=== PATIENT | male | born 1955 | race Caucasian/White ===

== ENCOUNTER 2019-07-22 12:06 | Outpatient (RCR) | payer BC, SELFPAY ==
[2019-07-22 12:40] VITALS: BP 140/75; PULSE 82; RESP 18; TEMP 36.4; BMI 29.5
--- NOTE | 2019-07-24 19:32 | HP.PCM_ITS ---
(1) Abscess of left foot excluding toes Status: Acute Code(s): L02.612 - Cutaneous abscess of left foot (2) HTN (hypertension) Status: Chronic Qualifiers: Hypertension type: unspecified Qualified Code(s): I10 - Essential (primary) hypertension Code(s): I10 - Essential (primary) hypertension (3) Hyperlipidemia Status: Chronic Qualifiers: Hyperlipidemia type: unspecified Qualified Code(s): E78.5 - Hyperlipidemia, unspecified Code(s): E78.5 - Hyperlipidemia, unspecified History of Present Illness Date of Service: 07/22/19 Chief Complaint: nonhealing wound left plantar foot s/p abscess History of Wound: Jose J is a 64 yo gentleman that presents to the wound healing center for evaluation and treatment of a wound to his left plantar foot s/p I and D on Thursday by his PCP Dr. Giordano. He had a wound to this same area in February 2019 and was seen at [facility] and treated there for 9 weeks with Aquacel and was placed in a wedge shoe to offload his foot. He has undergone vascular testing that he reports was normal and had xrays which did not show osteomyelitis. 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 He and his did not want to do surgery. His wound closed and he was discharged from the facility at the end of March. He began developing pain over the last 2 weeks and swelling and went to see his primary care doctor on Thursday who performed an I and D and had him do xrays to r/o osteomyelitis and performed a wound culture. He was started on Bactrim DS and has not heard back about any of the results at this time. He states that the pain and the drainage is improving. He has been using Aquacel and a bandaid over the wound. He denies fever or chills or nausea but did have these last weekend before he was started on antibiotics. Past Medical History Past Medical History: Chronic Problems HTN (hypertension) (Chronic) Hyperlipidemia (Chronic) Allergies/Adverse Reactions: Allergies Penicillins [PCN] Allergy (Verified 07/22/19 13:10) Other Home Medications: Ambulatory Orders Medication Instructions Recorded Ibuprofen [Advil] 600 mg PO DAILY PRN 07/22/19 Lisinopril mg PO DAILY 07/22/19 Simvastatin [Zocor] mg PO QHS 07/22/19 Smz/Tmp Ds [Bactrim Ds] 1 tab PO BID 07/22/19 - Family History Maternal No pertinent history Paternal No pertinent history Lives: Spouse/ Significant Other Smoking Status: Former smoker Tobacco Use: Non-smoker Alcohol: None Drugs: None Review of Systems Constitutional: Denies: Chills, Fever, Weight Change Eyes: Denies: Pain, Vision Change HEENT: Denies: Difficulty Hearing, Difficulty Swallowing, Sinus Congestion Cardiovascular: Denies: Chest Pain, Palpitations Respiratory: Denies: Cough, Shortness of Breath Gastrointestinal: Denies: Diarrhea, Nausea, Vomiting Genitourinary: Denies: Dysuria, Hematuria Musculoskeletal: Reports: Foot Pain Skin: Reports: Wounds Endocrine: Denies: Heat/ Cold Intolerance, Polydipsia, Polyuria Hematologic/ Lymphatic: Denies: Easy Bruising, Easy Bleeding - Physical Exam Vital Signs Temp Pulse Resp BP 97.6 F L 82 18 140/75 H 07/22/19 12:40 07/22/19 12:40 07/22/19 12:40 07/22/19 12:40 General: Alert, Oriented x3, Cooperative, No apparent distress HEENT: Atraumatic, Normocephalic Oral: Moist Mucosa Neck: Supple Lungs: Clear to auscultation Cardiovascular: Regular rate, Regular Rhythm Abdomen: Soft, Non Tender, Obese Extremities: No cyanosis, No edema, Peripheral Pulses Normal Skin: Ulcer/ Wound Wound Measurements and Assessment WC - Nurse 1 - General Ulcer Measurement Start: 07/22/19 12:39 Freq: Status: Active Protocol: Activity Type Activity Date Activity User E-Sign Co-Sign Detail Recorded Client Recorded Date Recorded By Document 07/22/19 12:40 [facility] [id number] 07/22/19 12:58 [facility] 07/22/19 12:40 Wound Center Nurse 1 [Ulcer Assessment] 31- L LATERAL PLANTAR FOOT -Combined with other wound No -Current Size (cm) - Length 1.1 -Current Size (cm) - Width 1.3 -Current Size (cm) - Depth 0.3 -Total Square Cm 1.43 -Date of Last Picture (Recall this 07/22/19 field) -Photo Taken Yes -Epithelialization None Present -Tunneling No -Undermining/Tunneling No -Circular Undermining No -Exudate Amt Small -Exudate Type Serosanguineous -Wound Margin Flat & Intact -Granulation Amt Medium (34-66%) -Granulation Quality Pale,Red -Slough/Fibrin Yes -Necrosis Amt Small (1-33%) -Necrotic Tissue Type Adherent Slough -Texture (Flory-wound Skin Appearance) Assessed,Callus ,Scarring -Moisture (Flory-wound Skin Appearance Assessed,Dry/ ) Scaly -Color (Flory-wound Skin Appearance) Assessed, Erythema -Temperature (Flory-wound Skin No Abnormality Appearance) (Pt Warm) -Tenderness on Palpation (Flory-wound Yes Skin Appearance) -Ulcer Cleansing Rinsed/ Irrigated with Saline -Foul Odor after Cleansing No -Anesthetic Used 5% Lidocaine Gel [Edema Assessment] -Right Calf (cm) 34.3 -Right Ankle (cm) 21 -Left Calf (cm) 34.5 -Left Ankle (cm) 22.5 WC - Nurse 2 - General Ulcer CM Notes Start: 07/22/19 12:39 Freq: Status: Active Protocol: Activity Type Activity Date Activity User E-Sign Co-Sign Detail Recorded Client Recorded Date Recorded By Document 07/22/19 13:51 DV [id number] 07/22/19 14:16 DV 07/22/19 13:51 Wound Center Nurse 2 [Procedure/Treatment] 31- L LATERAL PLANTAR FOOT -Time 14:02 -Correct Patient Yes -Correct Side, Site, Position Yes -Correct Procedure Yes -Procedure Performed Yes -Type of Procedure Debridement -Clinical Debridement Subcutaneous -Post Debridement Size (cm) - Length 1.3 -Post Debridement Size (cm) - Width 1.5 -Post Debridement Size (cm) - Depth 0.2 -Total Square Cm 1.95 -Wound/Ulcer Outcome Not Healed -Ulcer Cleansing Rinsed/ Irrigated with Saline -Foul Odor after Cleansing No -Bioengineered Tissue No -Bleeding Controlled with Pressure -Offloading Yes -Treatment Response Procedure Tolerated Well [See Physician Procedure note for Specifics] Pain Scale: 0-10 Numeric [Pain] -Is Patient Pain Free? Yes Psych/Mental Status: Normal Affect, Appropriate Debridement Note Post-Debridement Measurements/Treatment WC - Nurse 2 - General Ulcer CM Notes Start: 07/22/19 12:39 Freq: Status: Active Protocol: Activity Type Activity Date Activity User E-Sign Co-Sign Detail Recorded Client Recorded Date Recorded By Document 07/22/19 13:51 DV [id number] 07/22/19 14:16 DV 07/22/19 13:51 Wound Center Nurse 2 31- L LATERAL PLANTAR FOOT -Time 14:02 -Correct Patient Yes -Correct Side, Site, Position Yes -Correct Procedure Yes -Procedure Performed Yes -Type of Procedure Debridement -Clinical Debridement Subcutaneous -Post Debridement Size (cm) - Length 1.3 -Post Debridement Size (cm) - Width 1.5 -Post Debridement Size (cm) - Depth 0.2 -Total Square Cm 1.95 -Wound/Ulcer Outcome Not Healed -Ulcer Cleansing Rinsed/ Irrigated with Saline -Foul Odor after Cleansing No -Bioengineered Tissue No -Bleeding Controlled with Pressure -Offloading Yes -Treatment Response Procedure Tolerated Well Pain Scale: 0-10 Numeric Is Patient Pain Free? Yes Wound debrided: left lateral plantar foot Laterality: Left Type of Debridement: Excisional debridement Anesthesia Used: 4% Lidocaine Solution, 5% Lidocaine Gel Depth: Down to and including healthy tissue, in the subcutaneous layer Percentage of wound debrided: 100 Instrument Used: #15 blade, Forceps Tissue Removed: yellow slough, devitalized tissue Severity: Fat Layer Exposed Amount of bleeding with debridement: Mild Bleeding Controlled with: Compression and gauze Patient tolerated procedure well Assessment/Plan Assessment: cellulitis/abscess left lateral plantar foot Plan: Jose J's wound was evaluated and debrided further and explored for potential tunneling but none was found. Will obtain records from [facility] and his PCP including vascular studies, culture results and xrays. Will dress his wound with Aquacel and gauze and will have him offload his foot as much as possible. Continue Bactrim. Increase protein intake. Follow up in 1 week. Call sooner if he develops uncontrollable bleeding, increased drainage, odor or increased pain.
== END 2019-07-23 23:59 ==
LOC: WC 12:06
PROVIDERS: PCP Family Medicine; Visit Provider Family Medicine
DX: L02.612 Cutaneous abscess of left foot (principal); E78.5 Hyperlipidemia, unspecified; I10 Essential (primary) hypertension; Z87.891 Personal history of nicotine dependence; Z79.899 Other long term (current) drug therapy; L97.522 Non-pressure chronic ulcer of other part of left foot with fat layer exposed
CPT/HCPCS: 11042; 99203; G0463

== ENCOUNTER 2019-08-19 12:30 | Outpatient (RCR) | payer BC, SELFPAY ==
[2019-07-24 01:11] VITALS: BP 140/75; PULSE 82; RESP 18; TEMP 36.4
[2019-07-29 14:36] VITALS: BP 131/65; PULSE 78; RESP 18; TEMP 37; BMI 29.5
--- NOTE | 2019-07-29 18:09 | PCM.WC.PN ---
(1) Abscess of left foot excluding toes Status: Acute Current Visit: Yes Code(s): L02.612 - Cutaneous abscess of left foot (2) HTN (hypertension) Status: Chronic Current Visit: Yes Qualifiers: Hypertension type: essential hypertension Qualified Code(s): I10 - Essential (primary) hypertension Code(s): I10 - Essential (primary) hypertension (3) Hyperlipidemia Status: Chronic Current Visit: No Qualifiers: Code(s): E78.5 - Hyperlipidemia, unspecified Type of Wound Date of Service: 07/29/19 Chief Complaint: nonhealing wound left plantar foot s/p abscess History of Wound: Jose J is a 64 yo gentleman that presents to the wound healing center for evaluation and treatment of a wound to his left plantar foot s/p I and D on Thursday by his PCP Dr. Giordano. He had a wound to this same area in February 2019 and was seen at [facility] and treated there for 9 weeks with Aquacel and was placed in a wedge shoe to offload his foot. He has undergone vascular testing that he reports was normal and had xrays which did not show osteomyelitis. 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 He and his did not want to do surgery. His wound closed and he was discharged from the facility at the end of March. He began developing pain over the last 2 weeks and swelling and went to see his primary care doctor on Thursday who performed an I and D and had him do xrays to r/o osteomyelitis and performed a wound culture. He was started on Bactrim DS and has not heard back about any of the results at this time. He states that the pain and the drainage is improving. He has been using Aquacel and a bandaid over the wound. He denies fever or chills or nausea but did have these last weekend before he was started on antibiotics. Progress of Wound: Jose J returns today for follow up of surgical wound/abscess of his left plantar foot. Reviewed culture results and xrays from Dr. Giordano's office. Culture was positive for coag negative staph but no organism ID or sensitivities were performed. He is almost done with Bactrim DS and he has felt improvement of pain over the last week. He has had moderate drainage and occasional appearance of purulence from the wound per his . Denies systemic symptoms of infection such as erythema, fever, chills, nausea or vomiting. - Physical Exam Vital Signs Temp Pulse Resp BP 98.6 F 78 18 131/65 H 07/29/19 14:36 07/29/19 14:36 07/29/19 14:36 07/29/19 14:36 General: Alert, Oriented x3, Cooperative, No apparent distress HEENT: Atraumatic, Normocephalic Oral: Moist Mucosa Abdomen: Obese Extremities: No edema, Peripheral Pulses Normal Skin: Ulcer/ Wound Wound Measurements and Assessment WC - Nurse 1 - General Ulcer Measurement Start: 07/29/19 14:36 Freq: Status: Active Protocol: Activity Type Activity Date Activity User E-Sign Co-Sign Detail Recorded Client Recorded Date Recorded By Document 07/29/19 14:36 RB [id number] 07/29/19 14:39 RB 07/29/19 14:36 Wound Center Nurse 1 [Ulcer Assessment] 31- L LATERAL PLANTAR FOOT -Combined with other wound No -Current Size (cm) - Length 1 -Current Size (cm) - Width 1 -Current Size (cm) - Depth 0.1 -Total Square Cm 1 -Tunneling No -Undermining/Tunneling No -Circular Undermining No -Exudate Amt Small -Exudate Type Serosanguineous -Wound Margin Flat & Intact -Granulation Amt Medium (34-66%) -Granulation Quality [place] -Slough/Fibrin Yes -Necrosis Amt Small (1-33%) -Necrotic Tissue Type Adherent Slough -Structure Exposed N/A -Texture (Flory-wound Skin Appearance) Assessed,Callus -Moisture (Flory-wound Skin Appearance Assessed,Dry/ ) Scaly -Color (Flory-wound Skin Appearance) Assessed -Temperature (Flory-wound Skin No Abnormality Appearance) (Pt Warm) -Tenderness on Palpation (Flory-wound No Skin Appearance) -Ulcer Cleansing Wound Cleanser -Foul Odor after Cleansing No -Anesthetic Used 4% Lidocaine Solution [Edema Assessment] -Lower Limb Edema Present No WC - Nurse 2 - General Ulcer CM Notes Start: 07/29/19 14:36 Freq: Status: Active Protocol: Activity Type Activity Date Activity User E-Sign Co-Sign Detail Recorded Client Recorded Date Recorded By Document 07/29/19 15:43 DV [id number] 07/29/19 16:05 DV 07/29/19 15:43 Wound Center Nurse 2 [Procedure/Treatment] 31- L LATERAL PLANTAR FOOT -Time 15:43 -Correct Patient Yes -Correct Side, Site, Position Yes -Correct Procedure Yes -Procedure Performed Yes -Type of Procedure Debridement -Clinical Debridement Subcutaneous -Post Debridement Size (cm) - Length 1.1 -Post Debridement Size (cm) - Width 1.0 -Post Debridement Size (cm) - Depth 0.2 -Total Square Cm 1.10 -Wound/Ulcer Outcome Not Healed -Ulcer Cleansing Rinsed/ Irrigated with Saline -Foul Odor after Cleansing No -Bioengineered Tissue No -Bleeding Controlled with Pressure -Offloading No -Treatment Response Procedure Tolerated Well [See Physician Procedure note for Specifics] Pain Scale: 0-10 Numeric [Pain] -Is Patient Pain Free? Yes Psych/Mental Status: Normal Affect, Appropriate Debridement Note Post-Debridement Measurements/Treatment WC - Nurse 2 - General Ulcer CM Notes Start: 07/29/19 14:36 Freq: Status: Active Protocol: Activity Type Activity Date Activity User E-Sign Co-Sign Detail Recorded Client Recorded Date Recorded By Document 07/29/19 15:43 DV [id number] 07/29/19 16:05 DV 07/29/19 15:43 Wound Center Nurse 2 31- L LATERAL PLANTAR FOOT -Time 15:43 -Correct Patient Yes -Correct Side, Site, Position Yes -Correct Procedure Yes -Procedure Performed Yes -Type of Procedure Debridement -Clinical Debridement Subcutaneous -Post Debridement Size (cm) - Length 1.1 -Post Debridement Size (cm) - Width 1.0 -Post Debridement Size (cm) - Depth 0.2 -Total Square Cm 1.10 -Wound/Ulcer Outcome Not Healed -Ulcer Cleansing Rinsed/ Irrigated with Saline -Foul Odor after Cleansing No -Bioengineered Tissue No -Bleeding Controlled with Pressure -Offloading No -Treatment Response Procedure Tolerated Well Pain Scale: 0-10 Numeric Is Patient Pain Free? Yes Wound debrided: left lateral plantar foot Laterality: Left Type of Debridement: Excisional debridement Anesthesia Used: 4% Lidocaine Solution, 5% Lidocaine Gel Depth: Down to and including healthy tissue, in the subcutaneous layer Percentage of wound debrided: 100 Instrument Used: 5mm curette, #15 blade, Forceps Tissue Removed: yellow slough, devitalized tissue Severity: Fat Layer Exposed Amount of bleeding with debridement: Moderate Bleeding Controlled with: Compression and gauze Patient tolerated procedure well Assessment/Plan Active Problems Abscess of left foot excluding toes (Acute) HTN (hypertension) (Chronic) Assessment: cellulitis/abscess left lateral plantar foot Plan: Jose J's wound was evaluated and debrided further with excision of the edges of the wound that were devitalized. Will obtain records from [facility] including vascular studies and xrays. Will continue to dress his wound with Aquacel and gauze and will have him offload his foot as much as possible. Continue Bactrim. Tissue culture was performed today, will change treatment of antibiotic if needed. Increase protein intake. Follow up in 1 week. Call sooner if he develops uncontrollable bleeding, increased drainage, odor or increased pain.
[2019-08-05 12:22] VITALS: BP 142/75; PULSE 75; RESP 16; TEMP 36.2; BMI 29.5
--- NOTE | 2019-08-05 18:17 | PN.PCM_ITS ---
(1) Abscess of left foot excluding toes Status: Chronic Current Visit: Yes Code(s): L02.612 - Cutaneous abscess of left foot (2) HTN (hypertension) Status: Chronic Current Visit: Yes Qualifiers: Hypertension type: essential hypertension Qualified Code(s): I10 - Essential (primary) hypertension Code(s): I10 - Essential (primary) hypertension (3) Hyperlipidemia Status: Chronic Current Visit: Yes Qualifiers: Code(s): E78.5 - Hyperlipidemia, unspecified Type of Wound Date of Service: 08/05/19 Chief Complaint: nonhealing wound left plantar foot s/p abscess History of Wound: Jose J is a 64 yo gentleman that presents to the wound healing center for evaluation and treatment of a wound to his left plantar foot s/p I and D on Thursday by his PCP Dr. Giordano. He had a wound to this same area in February 2019 and was seen at [facility] and treated there for 9 weeks with Aquacel and was placed in a wedge shoe to offload his foot. He has underg one vascular testing that he reports was normal and had xrays which did not show osteomyelitis. 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 He and his did not want to do surgery. His wound closed and he was discharged from the facility at the end of March. He began developing pain over the last 2 weeks and swelling and went to see his primary care doctor on Thursday who performed an I and D and had him do xrays to r/o osteomyelitis and performed a wound culture. He was started on Bactrim DS and has not heard back about any of the results at this time. He states that the pain and the drainage is improving. He has been using Aquacel and a bandaid over the wound. He denies fever or chills or nausea but did have these last weekend before he was started on antibiotics. Progress of Wound: Jose J returns today for follow up of surgical wound/abscess of his left plantar foot. Culture showed staph epidermidis that was resistant to bactrim DS. He has had moderate drainage and occasional appearance of purulence from the wound per his but has had no pain. Denies systemic symptoms of infection such as erythema, fever, chills, nausea or vomiting. - Physical Exam Vital Signs Temp Pulse Resp BP 97.2 F L 75 16 142/75 H 08/05/19 12:22 08/05/19 12:22 08/05/19 12:22 08/05/19 12:22 General: Alert, Oriented x3, Cooperative, No apparent distress HEENT: Atraumatic, Normocephalic Oral: Moist Mucosa Abdomen: Obese Extremities: Edema Skin: Ulcer/ Wound Wound Measurements and Assessment WC - Nurse 1 - General Ulcer Measurement Start: 07/29/19 14:36 Freq: Status: Active Protocol: Activity Type Activity Date Activity User E-Sign Co-Sign Detail Recorded Client Recorded Date Recorded By Document 08/05/19 12:22 MW [id number] 08/05/19 12:28 MW 08/05/19 12:22 Wound Center Nurse 1 [Ulcer Assessment] 31- L LATERAL PLANTAR FOOT -Combined with other wound No -Current Size (cm) - Length 0.5 -Current Size (cm) - Width 0.8 -Current Size (cm) - Depth 0.1 -Total Square Cm 0.40 -Photo Taken No -Epithelialization None Present -Tunneling No -Undermining/Tunneling No -Circular Undermining No -Exudate Amt Small -Exudate Type Serosanguineous -Wound Margin Flat & Intact -Granulation Amt Medium (34-66%) -Granulation Quality [place] -Necrosis Amt Medium (34-66%) -Necrotic Tissue Type Adherent Slough -Structure Exposed N/A -Texture (Flory-wound Skin Appearance) Assessed,Callus -Moisture (Flory-wound Skin Appearance Assessed,Dry/ ) Scaly -Color (Flory-wound Skin Appearance) No Abnormality, Assessed -Temperature (Flory-wound Skin No Abnormality Appearance) (Pt Warm) -Tenderness on Palpation (Flory-wound No Skin Appearance) -Ulcer Cleansing Rinsed/ Irrigated with Saline -Foul Odor after Cleansing No -Anesthetic Used 4% Lidocaine Solution [Edema Assessment] -Lower Limb Edema Present No WC - Nurse 2 - General Ulcer CM Notes Start: 07/29/19 14:36 Freq: Status: Active Protocol: Activity Type Activity Date Activity User E-Sign Co-Sign Detail Recorded Client Recorded Date Recorded By Document 08/05/19 12:36 DV [id number] 08/05/19 12:47 DV 08/05/19 12:36 Wound Center Nurse 2 [Procedure/Treatment] 31- L LATERAL PLANTAR FOOT -Time 12:36 -Correct Patient Yes -Correct Side, Site, Position Yes -Correct Procedure Yes -Procedure Performed Yes -Type of Procedure Debridement -Clinical Debridement Subcutaneous -Post Debridement Size (cm) - Length 0.8 -Post Debridement Size (cm) - Width 1.1 -Post Debridement Size (cm) - Depth 0.1 -Total Square Cm 0.88 -Wound/Ulcer Outcome Not Healed -Ulcer Cleansing Rinsed/ Irrigated with Saline -Foul Odor after Cleansing No -Bioengineered Tissue No -Bleeding Controlled with Pressure -Offloading No -Treatment Response Procedure Tolerated Well [See Physician Procedure note for Specifics] Pain Scale: 0-10 Numeric [Pain] -Is Patient Pain Free? Yes Psych/Mental Status: Normal Affect, Appropriate Debridement Note Post-Debridement Measurements/Treatment WC - Nurse 2 - General Ulcer CM Notes Start: 07/29/19 14:36 Freq: Status: Active Protocol: Activity Type Activity Date Activity User E-Sign Co-Sign Detail Recorded Client Recorded Date Recorded By Document 07/29/19 15:43 DV [id number] 07/29/19 16:05 DV Document 08/05/19 12:36 DV [id number] 08/05/19 12:47 DV 07/29/19 08/05/19 15:43 12:36 Wound Center Nurse 2 31- L LATERAL PLANTAR FOOT -Time 15:43 12:36 -Correct Patient Yes Yes -Correct Side, Site, Position Yes Yes -Correct Procedure Yes Yes -Procedure Performed Yes Yes -Type of Procedure Debridement Debridement -Clinical Debridement Subcutaneous Subcutaneous -Post Debridement Size (cm) - Length 1.1 0.8 -Post Debridement Size (cm) - Width 1.0 1.1 -Post Debridement Size (cm) - Depth 0.2 0.1 -Total Square Cm 1.10 0.88 -Wound/Ulcer Outcome Not Healed Not Healed -Ulcer Cleansing Rinsed/ Rinsed/ Irrigated with Irrigated with Saline Saline -Foul Odor after Cleansing No No -Bioengineered Tissue No No -Bleeding Controlled with Pressure Pressure -Offloading No No -Treatment Response Procedure Procedure Tolerated Well Tolerated Well Pain Scale: 0-10 Numeric Is Patient Pain Free? Yes Yes Wound debrided: left lateral plantar foot Laterality: Left Type of Debridement: Excisional debridement Anesthesia Used: 4% Lidocaine Solution, 5% Lidocaine Gel Depth: Down to and including healthy tissue, in the subcutaneous layer Percentage of wound debrided: 100 Instrument Used: #10 blade, Forceps Tissue Removed: yellow slough, devitalized tissue Severity: Fat Layer Exposed Amount of bleeding with debridement: Mild Bleeding Controlled with: Compression and gauze Patient tolerated procedure well Assessment/Plan Active Problems Abscess of left foot excluding toes (Chronic) HTN (hypertension) (Chronic) Hyperlipidemia (Chronic) Assessment: cellulitis/abscess left lateral plantar foot Plan: Jose J's wound was evaluated and debrided with excision of the edges of the wound that were devitalized. Still have not received records from [facility] including vascular studies and xrays. Will continue to dress his wound with Aquacel and gauze and will have him offload his foot as much as possible. Start doxycyline for 14 days to treat culture results given this has returned twice and may be resistant to the antibiotic he was taking. Increase protein intake. Follow up in 1 week. Call sooner if he develops uncontrollable bleeding, increased drainage, odor or increased pain.
[2019-08-12 12:13] VITALS: BP 159/87; PULSE 69; RESP 16; TEMP 36.8; BMI 29.5
--- NOTE | 2019-08-12 16:26 | PCM.WC.PN ---
(1) Abscess of left foot excluding toes Status: Chronic Current Visit: Yes Code(s): L02.612 - Cutaneous abscess of left foot (2) HTN (hypertension) Status: Chronic Current Visit: Yes Qualifiers: Hypertension type: essential hypertension Qualified Code(s): I10 - Essential (primary) hypertension Code(s): I10 - Essential (primary) hypertension (3) Hyperlipidemia Status: Chronic Current Visit: Yes Qualifiers: Code(s): E78.5 - Hyperlipidemia, unspecified Type of Wound Date of Service: 08/12/19 Chief Complaint: nonhealing wound left plantar foot s/p abscess History of Wound: Jose J is a 64 yo gentleman that presents to the wound healing center for evaluation and treatment of a wound to his left plantar foot s/p I and D on Thursday by his PCP Dr. Giordano. He had a wound to this same area in February 2019 and was seen at [facility] [place] and treated there for 9 weeks with Aquacel and was placed in a wedge shoe to offload his foot. He has undergone vascular testing that he reports was normal and had xrays which did not show osteomyelitis. 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 He and his did not want to do surgery. His wound closed and he was discharged from the facility at the end of March. He began developing pain over the last 2 weeks and swelling and went to see his primary care doctor on Thursday who performed an I and D and had him do xrays to r/o osteomyelitis and performed a wound culture. He was started on Bactrim DS and has not heard back about any of the results at this time. He states that the pain and the drainage is improving. He has been using Aquacel and a bandaid over the wound. He denies fever or chills or nausea but did have these last weekend before he was started on antibiotics. Progress of Wound: Jose J returns today for follow up of surgical wound/abscess of his left plantar foot. Tolerating doxycycline. Denies systemic symptoms of infection such as erythema, fever, chills, nausea or vomiting. - Physical Exam Vital Signs Temp Pulse Resp BP 98.3 F 69 16 159/87 H 08/12/19 12:13 08/12/19 12:13 08/12/19 12:13 08/12/19 12:13 General: Alert, Oriented x3, Cooperative, No apparent distress HEENT: Atraumatic, Normocephalic Oral: Moist Mucosa Abdomen: Obese Extremities: No edema Skin: Ulcer/ Wound Wound Measurements and Assessment WC - Nurse 1 - General Ulcer Measurement Start: 07/29/19 14:36 Freq: Status: Active Protocol: Activity Type Activity Date Activity User E-Sign Co-Sign Detail Recorded Client Recorded Date Recorded By Document 08/12/19 12:13 [facility] [id number] 08/12/19 12:18 [facility] 08/12/19 12:13 Wound Center Nurse 1 [Ulcer Assessment] 31- L LATERAL PLANTAR FOOT -Combined with other wound No -Current Size (cm) - Length 0.5 -Current Size (cm) - Width 0.8 -Current Size (cm) - Depth 0.1 -Total Square Cm 0.40 -Photo Taken No -Epithelialization Small 1-33% -Tunneling No -Undermining/Tunneling No -Circular Undermining No -Exudate Amt Small -Exudate Type Serous -Wound Margin Flat & Intact -Granulation Amt Large (67-100%) -Granulation Quality Pale,Red -Slough/Fibrin Yes -Necrosis Amt Small (1-33%) -Necrotic Tissue Type Adherent Slough -Texture (Flory-wound Skin Appearance) Assessed,Callus ,Scarring -Moisture (Flory-wound Skin Appearance Assessed,Dry/ ) Scaly -Color (Flory-wound Skin Appearance) Assessed -Temperature (Flory-wound Skin No Abnormality Appearance) (Pt Warm) -Tenderness on Palpation (Flory-wound No Skin Appearance) -Ulcer Cleansing Rinsed/ Irrigated with Saline -Foul Odor after Cleansing No -Anesthetic Used 5% Lidocaine Gel WC - Nurse 2 - General Ulcer CM Notes Start: 07/29/19 14:36 Freq: Status: Active Protocol: Activity Type Activity Date Activity User E-Sign Co-Sign Detail Recorded Client Recorded Date Recorded By Document 08/12/19 12:35 DV [id number] 08/12/19 12:42 DV 08/12/19 12:35 Wound Center Nurse 2 [Procedure/Treatment] -Time 12:36 -Correct Patient Yes -Correct Side, Site, Position Yes -Correct Procedure Yes -Procedure Performed Yes -Type of Procedure Debridement -Clinical Debridement Subcutaneous -Post Debridement Size (cm) - Length 0.7 -Post Debridement Size (cm) - Width 0.8 -Post Debridement Size (cm) - Depth 0.2 -Total Square Cm 0.56 -Wound/Ulcer Outcome Not Healed -Ulcer Cleansing Rinsed/ Irrigated with Saline -Foul Odor after Cleansing No -Bioengineered Tissue No -Bleeding Controlled with Pressure -Offloading Yes -Type of Offloading Surgical Shoe -Treatment Response Procedure Tolerated Well [See Physician Procedure note for Specifics] Pain Scale: 0-10 Numeric [Pain] -Is Patient Pain Free? Yes Psych/Mental Status: Normal Affect, Appropriate Debridement Note Post-Debridement Measurements/Treatment WC - Nurse 2 - General Ulcer CM Notes Start: 07/29/19 14:36 Freq: Status: Active Protocol: Activity Type Activity Date Activity User E-Sign Co-Sign Detail Recorded Client Recorded Date Recorded By Document 07/29/19 15:43 DV [id number] 07/29/19 16:05 DV Document 08/05/19 12:36 DV [id number] 08/05/19 12:47 DV Document 08/12/19 12:35 DV [id number] 08/12/19 12:42 DV 07/29/19 08/05/19 08/12/19 15:43 12:36 12:35 Wound Center Nurse 2 31- L LATERAL PLANTAR FOOT -Time 15:43 12:36 12:36 -Correct Patient Yes Yes Yes -Correct Side, Site, Position Yes Yes Yes -Correct Procedure Yes Yes Yes -Procedure Performed Yes Yes Yes -Type of Procedure Debridement Debridement Debridement -Clinical Debridement Subcutaneous Subcutaneous Subcutaneous -Post Debridement Size (cm) - Length 1.1 0.8 0.7 -Post Debridement Size (cm) - Width 1.0 1.1 0.8 -Post Debridement Size (cm) - Depth 0.2 0.1 0.2 -Total Square Cm 1.10 0.88 0.56 -Wound/Ulcer Outcome Not Healed Not Healed Not Healed -Ulcer Cleansing Rinsed/ Rinsed/ Rinsed/ Irrigated with Irrigated with Irrigated with Saline Saline Saline -Foul Odor after Cleansing No No No -Bioengineered Tissue No No No -Bleeding Controlled with Pressure Pressure Pressure -Offloading No No Yes -Type of Offloading Surgical Shoe -Treatment Response Procedure Procedure Procedure Tolerated Well Tolerated Well Tolerated Well Pain Scale: 0-10 Numeric Is Patient Pain Free? Yes Yes Yes Wound debrided: left plantar foot Laterality: Left Type of Debridement: Excisional debridement Anesthesia Used: 4% Lidocaine Solution, 5% Lidocaine Gel Depth: Down to and including healthy tissue, in the subcutaneous layer Percentage of wound debrided: 100 Instrument Used: 5mm curette Tissue Removed: yellow slough, devitalized tissue Severity: Fat Layer Exposed Amount of bleeding with debridement: Mild Bleeding Controlled with: Compression and gauze Patient tolerated procedure well Assessment/Plan Active Problems Abscess of left foot excluding toes (Chronic) HTN (hypertension) (Chronic) Hyperlipidemia (Chronic) Assessment: cellulitis/abscess left lateral plantar foot Plan: Jose J's wound was evaluated and debrided with excision of the edges of the wound that were devitalized. Still have not received records from [facility] including vascular studies and xrays. Will continue to dress his wound with Aquacel and gauze and will have him offload his foot as much as possible. Continue doxycyline to treat culture results given this has returned twice and may be resistant to the antibiotic he was taking. Increase protein intake. Follow up in 1 week. Call sooner if he develops uncontrollable bleeding, increased drainage, odor or increased pain.
[2019-08-19 12:24] VITALS: BP 153/84; PULSE 73; RESP 18; TEMP 36.8; BMI 29.5
--- NOTE | 2019-08-19 17:14 | PN.PCM_ITS ---
(1) Abscess of left foot excluding toes Status: Chronic Current Visit: Yes Code(s): L02.612 - Cutaneous abscess of left foot (2) HTN (hypertension) Status: Chronic Current Visit: Yes Qualifiers: Hypertension type: essential hypertension Qualified Code(s): I10 - Essential (primary) hypertension Code(s): I10 - Essential (primary) hypertension (3) Hyperlipidemia Status: Chronic Current Visit: Yes Qualifiers: Code(s): E78.5 - Hyperlipidemia, unspecified Type of Wound Date of Service: 08/19/19 Chief Complaint: nonhealing wound left plantar foot s/p abscess History of Wound: Jose J is a 64 yo gentleman that presents to the wound healing center for evaluation and treatment of a wound to his left plantar foot s/p I and D on Thursday by his PCP Dr. Giordano. He had a wound to this same area in February 2019 and was seen at [facility] and treated there for 9 weeks with Aquacel and was placed in a wedge shoe to offload his foot. He has underg one vascular testing that he reports was normal and had xrays which did not show osteomyelitis. 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 He and his did not want to do surgery. His wound closed and he was discharged from the facility at the end of March. He began developing pain over the last 2 weeks and swelling and went to see his primary care doctor on Thursday who performed an I and D and had him do xrays to r/o osteomyelitis and performed a wound culture. He was started on Bactrim DS and has not heard back about any of the results at this time. He states that the pain and the drainage is improving. He has been using Aquacel and a bandaid over the wound. He denies fever or chills or nausea but did have these last weekend before he was started on antibiotics. Progress of Wound: Jose J returns today for follow up of surgical wound/abscess of his left plantar foot. Completed doxycycline. Denies systemic symptoms of infection such as erythema, fever, chills, nausea or vomiting. - Physical Exam Vital Signs Temp Pulse Resp BP 98.3 F 73 18 153/84 H 08/19/19 12:24 08/19/19 12:24 08/19/19 12:24 08/19/19 12:24 General: Alert, Oriented x3, Cooperative, No apparent distress HEENT: Atraumatic, Normocephalic Oral: Moist Mucosa Skin: Ulcer/ Wound Wound Measurements and Assessment WC - Nurse 1 - General Ulcer Measurement Start: 07/29/19 14:36 Freq: Status: Active Protocol: Activity Type Activity Date Activity User E-Sign Co-Sign Detail Recorded Client Recorded Date Recorded By Document 08/19/19 12:24 RB [id number] 08/19/19 12:33 RB 08/19/19 12:24 Wound Center Nurse 1 [Ulcer Assessment] #1- L LATERAL PLANTAR FOOT -Combined with other wound No -Current Size (cm) - Length 0.4 -Current Size (cm) - Width 0.5 -Current Size (cm) - Depth 0.2 -Total Square Cm 0.20 -Tunneling No -Undermining/Tunneling No -Circular Undermining No -Exudate Amt Small -Exudate Type Serosanguineous -Wound Margin Flat & Intact -Granulation Amt Medium (34-66%) -Granulation Quality [place] -Slough/Fibrin Yes -Necrosis Amt Small (1-33%) -Necrotic Tissue Type Adherent Slough -Structure Exposed N/A -Texture (Flory-wound Skin Appearance) Assessed -Moisture (Flory-wound Skin Appearance Assessed ) -Color (Flory-wound Skin Appearance) Assessed -Temperature (Flory-wound Skin No Abnormality Appearance) (Pt Warm) -Tenderness on Palpation (Flory-wound No Skin Appearance) -Ulcer Cleansing Wound Cleanser -Foul Odor after Cleansing No -Anesthetic Used 4% Lidocaine Solution [Edema Assessment] -Lower Limb Edema Present Yes -Left Calf (cm) 35 -Left Ankle (cm) 21.5 WC - Nurse 2 - General Ulcer CM Notes Start: 07/29/19 14:36 Freq: Status: Active Protocol: Activity Type Activity Date Activity User E-Sign Co-Sign Detail Recorded Client Recorded Date Recorded By Document 08/19/19 13:03 DV [id number] 08/19/19 13:06 DV 08/19/19 13:03 Wound Center Nurse 2 [Procedure/Treatment] #1- L LATERAL PLANTAR FOOT -Time 13:03 -Correct Patient Yes -Correct Side, Site, Position Yes -Correct Procedure Yes -Procedure Performed Yes -Type of Procedure Debridement -Clinical Debridement Subcutaneous -Post Debridement Size (cm) - Length 0.5 -Post Debridement Size (cm) - Width 0.5 -Post Debridement Size (cm) - Depth 0.1 -Total Square Cm 0.25 -Wound/Ulcer Outcome Not Healed -Ulcer Cleansing Rinsed/ Irrigated with Saline -Foul Odor after Cleansing No -Bioengineered Tissue No -Bleeding Controlled with Pressure -Offloading No -Treatment Response Procedure Tolerated Well [See Physician Procedure note for Specifics] Pain Scale: 0-10 Numeric [Pain] -Is Patient Pain Free? Yes Psych/Mental Status: Normal Affect, Appropriate Debridement Note Post-Debridement Measurements/Treatment WC - Nurse 2 - General Ulcer CM Notes Start: 07/29/19 14:36 Freq: Status: Active Protocol: Activity Type Activity Date Activity User E-Sign Co-Sign Detail Recorded Client Recorded Date Recorded By Document 07/29/19 15:43 DV [id number] 07/29/19 16:05 DV Document 08/05/19 12:36 DV [id number] 08/05/19 12:47 DV Document 08/12/19 12:35 DV [id number] 08/12/19 12:42 DV Document 08/19/19 13:03 DV [id number] 08/19/19 13:06 DV 07/29/19 08/05/19 08/12/19 15:43 12:36 12:35 Wound Center Nurse 2 #1- L LATERAL PLANTAR FOOT -Time 15:43 12:36 12:36 -Correct Patient Yes Yes Yes -Correct Side, Site, Position Yes Yes Yes -Correct Procedure Yes Yes Yes -Procedure Performed Yes Yes Yes -Type of Procedure Debridement Debridement Debridement -Clinical Debridement Subcutaneous Subcutaneous Subcutaneous -Post Debridement Size (cm) - Length 1.1 0.8 0.7 -Post Debridement Size (cm) - Width 1.0 1.1 0.8 -Post Debridement Size (cm) - Depth 0.2 0.1 0.2 -Total Square Cm 1.10 0.88 0.56 -Wound/Ulcer Outcome Not Healed Not Healed Not Healed -Ulcer Cleansing Rinsed/ Rinsed/ Rinsed/ Irrigated with Irrigated with Irrigated with Saline Saline Saline -Foul Odor after Cleansing No No No -Bioengineered Tissue No No No -Bleeding Controlled with Pressure Pressure Pressure -Offloading No No Yes -Type of Offloading Surgical Shoe -Treatment Response Procedure Procedure Procedure Tolerated Well Tolerated Well Tolerated Well Pain Scale: 0-10 Numeric Is Patient Pain Free? Yes Yes Yes 08/19/19 13:03 Wound Center Nurse 2 #1- L LATERAL PLANTAR FOOT -Time 13:03 -Correct Patient Yes -Correct Side, Site, Position Yes -Correct Procedure Yes -Procedure Performed Yes -Type of Procedure Debridement -Clinical Debridement Subcutaneous -Post Debridement Size (cm) - Length 0.5 -Post Debridement Size (cm) - Width 0.5 -Post Debridement Size (cm) - Depth 0.1 -Total Square Cm 0.25 -Wound/Ulcer Outcome Not Healed -Ulcer Cleansing Rinsed/ Irrigated with Saline -Foul Odor after Cleansing No -Bioengineered Tissue No -Bleeding Controlled with Pressure -Offloading No -Type of Offloading -Treatment Response Procedure Tolerated Well Pain Scale: 0-10 Numeric Is Patient Pain Free? Yes Wound debrided: Left lateral plantar foot Laterality: Left Type of Debridement: Excisional debridement Anesthesia Used: 4% Lidocaine Solution, 5% Lidocaine Gel Depth: Down to and including healthy tissue, in the subcutaneous layer Percentage of wound debrided: 100 Instrument Used: 5mm curette Tissue Removed: yellow slough, devitalized tissue Severity: Fat Layer Exposed Amount of bleeding with debridement: Mild Bleeding Controlled with: Compression and gauze Patient tolerated procedure well Assessment/Plan Active Problems Abscess of left foot excluding toes (Chronic) HTN (hypertension) (Chronic) Hyperlipidemia (Chronic) Assessment: cellulitis/abscess left lateral plantar foot Plan: Jose J's wound was evaluated and debrided with excision of the edges of the wound that were devitalized. Still have not received records from [facility] including vascular studies and xrays. Will continue to dress his wound with Aquacel and gauze and will have him offload his foot as much as possible. Continue doxycyline to treat culture results given this has returned twice and may be resistant to the antibiotic he was taking. Increase protein intake. Follow up in 1 week. Call sooner if he develops uncontrollable bleeding, increased drainage, odor or increased pain.
[2019-08-19 18:03] LABS: M R Staph aureus DNA By PCR Negative (Negative); Probe Check PASS; Specimen Processing Control PASS; Staph aureus DNA By PCR NEGATIVE (Negative)
== END 2019-08-23 23:59 ==
LOC: WC 12:30
PROVIDERS: PCP Family Medicine; Referring Provider Family Medicine; Visit Provider Family Medicine
DX: L02.612 Cutaneous abscess of left foot (principal); L03.116 Cellulitis of left lower limb; I10 Essential (primary) hypertension; E78.5 Hyperlipidemia, unspecified; Z79.899 Other long term (current) drug therapy
CPT/HCPCS: 11042; 87070; 87075; 87077; 87186; 87205; 87640

== ENCOUNTER 2019-09-16 10:00 | Outpatient (RCR) | payer BC, SELFPAY ==
[2019-08-24 00:53] VITALS: BP 153/84; PULSE 73; RESP 18; TEMP 36.8
[2019-08-26 12:06] VITALS: BP 143/72; PULSE 72; RESP 16; TEMP 36.6; BMI 29.5
--- NOTE | 2019-08-26 17:05 | PCM.WC.PN ---
(1) Abscess of left foot excluding toes Status: Chronic Current Visit: Yes Code(s): L02.612 - Cutaneous abscess of left foot Type of Wound Date of Service: 08/26/19 Chief Complaint: nonhealing wound left plantar foot s/p abscess History of Wound: Jose J is a 64 yo gentleman that presents to the wound healing center for evaluation and treatment of a wound to his left plantar foot s/p I and D on Thursday by his PCP Dr. Giordano. He had a wound to this same area in February 2019 and was seen at [facility] and treated there for 9 weeks with Aquacel and was placed in a wedge shoe to offload his foot. He has undergone vascular testing that he reports was normal and had xrays which did not show osteomyelitis. 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 He and his did not want to do surgery. His wound closed and he was discharged from the facility at the end of March. He began developing pain over the last 2 weeks and swelling and went to see his primary care doctor on Thursday who performed an I and D and had him do xrays to r/o osteomyelitis and performed a wound culture. He was started on Bactrim DS and has not heard back about any of the results at this time. He states that the pain and the drainage is improving. He has been using Aquacel and a bandaid over the wound. He denies fever or chills or nausea but did have these last weekend before he was started on antibiotics. Progress of Wound: Jose J returns today for follow up of surgical wound/abscess of his left plantar foot. Culture was positive for staph epidermidis sensitive to doxycycline again. There has been negligible improvement in his wound. Denies systemic symptoms of infection such as erythema, fever, chills, nausea or vomiting. - Physical Exam Vital Signs Temp Pulse Resp BP 98 F 72 16 143/72 H 08/26/19 12:06 08/26/19 12:08/26/19 12:08/26/19 12:06 General: Alert, Oriented x3, Cooperative, No apparent distress HEENT: Atraumatic, Normocephalic Oral: Moist Mucosa Abdomen: Obese Extremities: Edema Skin: Ulcer/ Wound Wound Measurements and Assessment WC - Nurse 1 - General Ulcer Measurement Start: 08/26/19 12:06 Freq: Status: Active Protocol: Activity Type Activity Date Activity User E-Sign Co-Sign Detail Recorded Client Recorded Date Recorded By Document 08/26/19 12:06 [facility] [id number] 08/26/19 12:12 [facility] 08/26/19 12:06 Wound Center Nurse 1 [Ulcer Assessment] #1- L LATERAL PLANTAR FOOT -Combined with other wound No -Current Size (cm) - Length 0.4 -Current Size (cm) - Width 0.4 -Current Size (cm) - Depth 0.2 -Total Square Cm 0.16 -Photo Taken No -Epithelialization Small 1-33% -Tunneling No -Undermining/Tunneling No -Circular Undermining No -Exudate Amt Small -Exudate Type Serous -Wound Margin Distinct, Outline Attached -Granulation Amt Medium (34-66%) -Granulation Quality Red -Slough/Fibrin Yes -Necrosis Amt Small (1-33%) -Necrotic Tissue Type Adherent Slough -Texture (Flory-wound Skin Appearance) Assessed, Scarring -Moisture (Flory-wound Skin Appearance Assessed ) -Color (Flory-wound Skin Appearance) Assessed -Temperature (Flory-wound Skin No Abnormality Appearance) (Pt Warm) -Tenderness on Palpation (Flory-wound No Skin Appearance) -Ulcer Cleansing Rinsed/ Irrigated with Saline -Foul Odor after Cleansing No -Anesthetic Used 5% Lidocaine Gel - Nurse 2 - General Ulcer CM Notes Start: 08/26/19 12:06 Freq: Status: Active Protocol: Activity Type Activity Date Activity User E-Sign Co-Sign Detail Recorded Client Recorded Date Recorded By Document 08/26/19 13:07 [id number] 08/26/19 13:19 DV 08/26/19 13:07 Wound Center Nurse 2 [Procedure/Treatment] -Time 13:09 -Correct Patient Yes -Correct Side, Site, Position Yes -Correct Procedure Yes -Procedure Performed Yes -Type of Procedure Debridement -Clinical Debridement Subcutaneous -Post Debridement Size (cm) - Length 0.4 -Post Debridement Size (cm) - Width 0.5 -Post Debridement Size (cm) - Depth 0.1 -Total Square Cm 0.20 -Wound/Ulcer Outcome Not Healed -Ulcer Cleansing Rinsed/ Irrigated with Saline -Foul Odor after Cleansing No -Bioengineered Tissue No -Bleeding Controlled with Pressure -Offloading No -Treatment Response Procedure Tolerated Well [See Physician Procedure note for Specifics] Pain Scale: 0-10 Numeric [Pain] -Is Patient Pain Free? Yes Psych/Mental Status: Normal Affect, Appropriate Debridement Note Post-Debridement Measurements/Treatment WC - Nurse 2 - General Ulcer CM Notes Start: 08/26/19 12:06 Freq: Status: Active Protocol: Activity Type Activity Date Activity User E-Sign Co-Sign Detail Recorded Client Recorded Date Recorded By Document 08/26/19 13:07 DV [id number] 08/26/19 13:19 DV 08/26/19 13:07 Wound Center Nurse 2 #1- L LATERAL PLANTAR FOOT -Time 13:09 -Correct Patient Yes -Correct Side, Site, Position Yes -Correct Procedure Yes -Procedure Performed Yes -Type of Procedure Debridement -Clinical Debridement Subcutaneous -Post Debridement Size (cm) - Length 0.4 -Post Debridement Size (cm) - Width 0.5 -Post Debridement Size (cm) - Depth 0.1 -Total Square Cm 0.20 -Wound/Ulcer Outcome Not Healed -Ulcer Cleansing Rinsed/ Irrigated with Saline -Foul Odor after Cleansing No -Bioengineered Tissue No -Bleeding Controlled with Pressure -Offloading No -Treatment Response Procedure Tolerated Well Pain Scale: 0-10 Numeric Is Patient Pain Free? Yes Wound debrided: left lateral plantar foot Laterality: Left Type of Debridement: Excisional debridement Anesthesia Used: 4% Lidocaine Solution, 5% Lidocaine Gel Depth: Down to and including healthy tissue, in the subcutaneous layer Percentage of wound debrided: 100 Instrument Used: 5mm curette Tissue Removed: yellow slough, devitalized tissue Severity: Fat Layer Exposed Amount of bleeding with debridement: Mild Bleeding Controlled with: Compression and gauze Patient tolerated procedure well Assessment/Plan Active Problems Abscess of left foot excluding toes (Chronic) Assessment: cellulitis/abscess left lateral plantar foot Plan: Jose J's wound was evaluated and debrided with excision of the edges of the wound that were devitalized. Still have not received records from [facility] including vascular studies and xrays. Will continue to dress his wound with Aquacel and gauze and will have him offload his foot as much as possible. Doxycyline restarted to treat culture results. Will have him use hibiclens 2-3 times/week to topically disrupt infection as well. Increase protein intake. Follow up in 1 week. Call sooner if he develops uncontrollable bleeding, increased drainage, odor or increased pain.
[2019-09-02 10:16] VITALS: BP 158/79; PULSE 69; RESP 18; TEMP 36.8; BMI 29.5
--- NOTE | 2019-09-02 17:57 | PCM.WC.PN ---
(1) Abscess of left foot excluding toes Status: Chronic Current Visit: Yes Code(s): L02.612 - Cutaneous abscess of left foot Type of Wound Date of Service: 09/02/19 Chief Complaint: nonhealing wound left plantar foot s/p abscess History of Wound: Jose J is a 64 yo gentleman that presents to the wound healing center for evaluation and treatment of a wound to his left plantar foot s/p I and D on Thursday by his PCP Dr. Giordano. He had a wound to this same area in February 2019 and was seen at [facility] and treated there for 9 weeks with Aquacel and was placed in a wedge shoe to offload his foot. He has undergone vascular testing that he reports was normal and had xrays which did not show osteomyelitis. 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 He and his did not want to do surgery. His wound closed and he was discharged from the facility at the end of March. He began developing pain over the last 2 weeks and swelling and went to see his primary care doctor on Thursday who performed an I and D and had him do xrays to r/o osteomyelitis and performed a wound culture. He was started on Bactrim DS and has not heard back about any of the results at this time. He states that the pain and the drainage is improving. He has been using Aquacel and a bandaid over the wound. He denies fever or chills or nausea but did have these last weekend before he was started on antibiotics. Progress of Wound: Jose J returns today for follow up of surgical wound/abscess of his left plantar foot. Culture was positive for staph epidermidis sensitive to doxycycline again. There has been slight improvement in his wound. Denies systemic symptoms of infection such as erythema, fever, chills, nausea or vomiting. - Physical Exam Vital Signs Temp Pulse Resp BP 98.3 F 69 18 158/79 H 09/02/19 10:16 09/02/19 10:16 09/02/19 10:16 09/02/19 10:16 General: Alert, Oriented x3, Cooperative, No apparent distress HEENT: Atraumatic, Normocephalic Oral: Moist Mucosa Abdomen: Obese Extremities: No edema Skin: Ulcer/ Wound Wound Measurements and Assessment WC - Nurse 1 - General Ulcer Measurement Start: 08/26/19 12:06 Freq: Status: Active Protocol: Activity Type Activity Date Activity User E-Sign Co-Sign Detail Recorded Client Recorded Date Recorded By Document 09/02/19 10:16 RB [id number] 09/02/19 10:18 RB 09/02/19 10:16 Wound Center Nurse 1 [Ulcer Assessment] #1- L LATERAL PLANTAR FOOT -Combined with other wound No -Current Size (cm) - Length 0.5 -Current Size (cm) - Width 0.7 -Current Size (cm) - Depth 0.1 -Total Square Cm 0.35 -Tunneling No -Undermining/Tunneling No -Circular Undermining No -Exudate Amt Small -Exudate Type Serosanguineous -Wound Margin Thickened -Granulation Amt Medium (34-66%) -Granulation Quality [place] -Slough/Fibrin Yes -Necrosis Amt Small (1-33%) -Necrotic Tissue Type Adherent Slough -Structure Exposed N/A -Texture (Flory-wound Skin Appearance) Callus -Moisture (Flory-wound Skin Appearance Assessed ) -Color (Flory-wound Skin Appearance) Assessed -Temperature (Flory-wound Skin No Abnormality Appearance) (Pt Warm) -Tenderness on Palpation (Flory-wound No Skin Appearance) -Ulcer Cleansing Wound Cleanser -Foul Odor after Cleansing No -Anesthetic Used 5% Lidocaine Gel WC - Nurse 2 - General Ulcer CM Notes Start: 08/26/19 12:06 Freq: Status: Active Protocol: Activity Type Activity Date Activity User E-Sign Co-Sign Detail Recorded Client Recorded Date Recorded By Document 09/02/19 10:39 DV [id number] 09/02/19 10:44 DV Document 09/02/19 14:06 DV [id number] 09/02/19 14:17 DV 09/02/19 09/02/19 10:39 14:06 Wound Center Nurse 2 [Procedure/Treatment] #1- L LATERAL PLANTAR FOOT -Time 10:40 14:07 -Correct Patient Yes Yes -Correct Side, Site, Position Yes Yes -Correct Procedure Yes Yes -Procedure Performed Yes Yes -Type of Procedure Debridement Debridement -Clinical Debridement Subcutaneous Subcutaneous -Post Debridement Size (cm) - Length 0.4 0.9 -Post Debridement Size (cm) - Width 0.5 0.8 -Post Debridement Size (cm) - Depth 0.1 0.7 -Total Square Cm 0.20 0.72 -Wound/Ulcer Outcome Not Healed Not Healed -Ulcer Cleansing Rinsed/ Rinsed/ Irrigated with Irrigated with Saline Saline -Foul Odor after Cleansing No No -Bioengineered Tissue No No -Bleeding Controlled with Pressure Pressure -Offloading No Yes -Type of Offloading Surgical Shoe -Treatment Response Procedure Procedure Tolerated Well Tolerated Well [See Physician Procedure note for Specifics] Pain Scale: 0-10 Numeric [Pain] -Is Patient Pain Free? Yes Yes Psych/Mental Status: Normal Affect, Appropriate Debridement Note Post-Debridement Measurements/Treatment WC - Nurse 2 - General Ulcer CM Notes Start: 08/26/19 12:06 Freq: Status: Active Protocol: Activity Type Activity Date Activity User E-Sign Co-Sign Detail Recorded Client Recorded Date Recorded By Document 08/26/19 13:07 DV [id number] 08/26/19 13:19 DV Document 09/02/19 10:39 DV [id number] 09/02/19 10:44 DV Document 09/02/19 14:06 DV [id number] 09/02/19 14:17 DV 08/26/19 09/02/19 09/02/19 13:07 10:39 14:06 Wound Center Nurse 2 #1- L LATERAL PLANTAR FOOT -Time 13:09 10:40 14:07 -Correct Patient Yes Yes Yes -Correct Side, Site, Position Yes Yes Yes -Correct Procedure Yes Yes Yes -Procedure Performed Yes Yes Yes -Type of Procedure Debridement Debridement Debridement -Clinical Debridement Subcutaneous Subcutaneous Subcutaneous -Post Debridement Size (cm) - Length 0.4 0.4 -Post Debridement Size (cm) - Width 0.5 0.5 -Post Debridement Size (cm) - Depth 0.1 0.1 -Total Square Cm 0.20 0.20 -Wound/Ulcer Outcome Not Healed Not Healed Not Healed -Ulcer Cleansing Rinsed/ Rinsed/ Rinsed/ Irrigated with Irrigated with Irrigated with Saline Saline Saline -Foul Odor after Cleansing No No No -Bioengineered Tissue No No No -Bleeding Controlled with Pressure Pressure Pressure -Offloading No No Yes -Type of Offloading -Treatment Response Procedure Procedure Procedure Tolerated Well Tolerated Well Tolerated Well Pain Scale: 0-10 Numeric Is Patient Pain Free? Yes Yes Yes Wound debrided: left lateral plantar foot Laterality: Left Type of Debridement: Excisional debridement Anesthesia Used: 4% Lidocaine Solution, 5% Lidocaine Gel Depth: Down to and including healthy tissue, in the subcutaneous layer Percentage of wound debrided: 100 Instrument Used: 3mm curette Tissue Removed: yellow slough, devitalized tissue Severity: Fat Layer Exposed Amount of bleeding with debridement: Mild Bleeding Controlled with: Compression and gauze Patient tolerated procedure well Assessment/Plan Active Problems Abscess of left foot excluding toes (Chronic) Assessment: cellulitis/abscess left lateral plantar foot Plan: Jose J's wound was evaluated and debrided with excision of the edges of the wound that were devitalized. Still have not received records from [facility] including vascular studies and xrays. Will dress his wound with Promogran and gauze and will have him offload his foot as much as possible. Doxycyline continued. Will have him use hibiclens 2-3 times/week to topically disrupt infection as well. Increase protein intake. Follow up in 2 weeks. Call sooner if he develops uncontrollable bleeding, increased drainage, odor or increased pain.
[2019-09-16 09:53] VITALS: BP 185/77; PULSE 73; RESP 16; TEMP 37; BMI 29.5
--- NOTE | 2019-09-16 16:45 | PN.PCM_ITS ---
(1) Abscess of left foot excluding toes Status: Chronic Current Visit: Yes Code(s): L02.612 - Cutaneous abscess of left foot Type of Wound Date of Service: 09/16/19 Chief Complaint: nonhealing wound left plantar foot s/p abscess History of Wound: Jose J is a 64 yo gentleman that presents to the wound healing center for evaluation and treatment of a wound to his left plantar foot s/p I and D on Thursday by his PCP Dr. Giordano. He had a wound to this same area in February 2019 and was seen at [facility] and treated there for 9 weeks with Aquacel and was placed in a wedge shoe to offload his foot. He has undergone vascular testing that he reports was normal and had xrays which did not show osteomyelitis. 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 He and his did not want to do surgery. His wound closed and he was discharged from the facility at the end of March. He began developing pain over the last 2 weeks and swelling and went to see his primary care doctor on Thursday who performed an I and D and had him do xrays to r/o osteomyelitis and performed a wound culture. He was started on Bactrim DS and has not heard back about any of the results at this time. He states that the pain and the drainage is improving. He has been using Aquacel and a bandaid over the wound. He denies fever or chills or nausea but did have these last weekend before he was started on antibiotics. Progress of Wound: Jose J returns today for follow up of surgical wound/abscess of his left plantar foot. Culture was positive for staph epidermidis sensitive to doxycycline again. There has been overall improvement in his wound. Denies systemic symptoms of infection such as erythema, fever, chills, nausea or vomiting. - Physical Exam Vital Signs Temp Pulse Resp BP 98.6 F 73 16 185/77 H 09/16/19 09:53 09/16/19 09:53 09/16/19 09:53 09/16/19 09:53 General: Alert, Oriented x3, Cooperative, No apparent distress HEENT: Atraumatic, Normocephalic Oral: Moist Mucosa Abdomen: Obese Extremities: Edema Skin: Ulcer/ Wound Wound Measurements and Assessment WC - Nurse 1 - General Ulcer Measurement Start: 08/26/19 12:06 Freq: Status: Active Protocol: Activity Type Activity Date Activity User E-Sign Co-Sign Detail Recorded Client Recorded Date Recorded By Document 09/16/19 09:53 MW [id number] 09/16/19 09:59 MW 09/16/19 09:53 Wound Center Nurse 1 [Ulcer Assessment] #1- L LATERAL PLANTAR FOOT -Combined with other wound No -Current Size (cm) - Length 0.6 -Current Size (cm) - Width 0.8 -Current Size (cm) - Depth 0.1 -Total Square Cm 0.48 -Date of Last Picture (Recall this 09/16/19 field) -Photo Taken Yes -Epithelialization None Present -Tunneling No -Undermining/Tunneling No -Circular Undermining No -Exudate Amt None Present -Wound Margin Flat & Intact -Granulation Amt None Present (0 %) -Granulation Quality N/A -Slough/Fibrin Yes -Necrosis Amt None Present (0 %) -Necrotic Tissue Type Adherent Slough -Structure Exposed N/A -Texture (Flory-wound Skin Appearance) Assessed, Scarring -Moisture (Flory-wound Skin Appearance Assessed ) -Color (Flory-wound Skin Appearance) Assessed -Temperature (Flory-wound Skin No Abnormality Appearance) (Pt Warm) -Tenderness on Palpation (Flory-wound Yes Skin Appearance) -Ulcer Cleansing Rinsed/ Irrigated with Saline -Foul Odor after Cleansing No -Anesthetic Used 4% Lidocaine Solution [Edema Assessment] -Lower Limb Edema Present No WC - Nurse 2 - General Ulcer CM Notes Start: 08/26/19 12:06 Freq: Status: Active Protocol: Activity Type Activity Date Activity User E-Sign Co-Sign Detail Recorded Client Recorded Date Recorded By Document 09/16/19 10:27 DV [id number] 09/16/19 10:35 DV 09/16/19 10:27 Wound Center Nurse 2 [Procedure/Treatment] #1- L LATERAL PLANTAR FOOT -Time 10:27 -Correct Patient Yes -Correct Side, Site, Position Yes -Correct Procedure Yes -Procedure Performed Yes -Type of Procedure Debridement -Clinical Debridement Subcutaneous -Post Debridement Size (cm) - Length 0.4 -Post Debridement Size (cm) - Width 0.2 -Post Debridement Size (cm) - Depth 0.1 -Total Square Cm 0.08 -Wound/Ulcer Outcome Not Healed -Ulcer Cleansing Rinsed/ Irrigated with Saline -Foul Odor after Cleansing No -Bioengineered Tissue No -Bleeding Controlled with Pressure -Offloading No -Treatment Response Procedure Tolerated Well [See Physician Procedure note for Specifics] Pain Scale: 0-10 Numeric [Pain] -Is Patient Pain Free? Yes Psych/Mental Status: Normal Affect, Appropriate Debridement Note Post-Debridement Measurements/Treatment WC - Nurse 2 - General Ulcer CM Notes Start: 08/26/19 12:06 Freq: Status: Active Protocol: Activity Type Activity Date Activity User E-Sign Co-Sign Detail Recorded Client Recorded Date Recorded By Document 08/26/19 13:07 DV [id number] 08/26/19 13:19 DV Document 09/02/19 10:39 DV [id number] 09/02/19 10:44 DV Document 09/02/19 14:06 DV [id number] 09/02/19 14:17 DV Document 09/16/19 10:27 DV [id number] 09/16/19 10:35 DV 08/26/19 09/02/19 09/02/19 13:07 10:39 14:06 Wound Center Nurse 2 #1- L LATERAL PLANTAR FOOT -Time 13:09 10:40 14:07 -Correct Patient Yes Yes Yes -Correct Side, Site, Position Yes Yes Yes -Correct Procedure Yes Yes Yes -Procedure Performed Yes Yes Yes -Type of Procedure Debridement Debridement Debridement -Clinical Debridement Subcutaneous Subcutaneous Subcutaneous -Post Debridement Size (cm) - Length 0.4 0.4 0.9 -Post Debridement Size (cm) - Width 0.5 0.5 0.8 -Post Debridement Size (cm) - Depth 0.1 0.1 0.7 -Total Square Cm 0.20 0.20 0.72 -Wound/Ulcer Outcome Not Healed Not Healed Not Healed -Ulcer Cleansing Rinsed/ Rinsed/ Rinsed/ Irrigated with Irrigated with Irrigated with Saline Saline Saline -Foul Odor after Cleansing No No No -Bioengineered Tissue No No No -Bleeding Controlled with Pressure Pressure Pressure -Offloading No No Yes -Type of Offloading Surgical Shoe -Treatment Response Procedure Procedure Procedure Tolerated Well Tolerated Well Tolerated Well Pain Scale: 0-10 Numeric Is Patient Pain Free? Yes Yes Yes 09/16/19 10:27 Wound Center Nurse 2 #1- L LATERAL PLANTAR FOOT -Time 10:27 -Correct Patient Yes -Correct Side, Site, Position Yes -Correct Procedure Yes -Procedure Performed Yes -Type of Procedure Debridement -Clinical Debridement Subcutaneous -Post Debridement Size (cm) - Length 0.4 -Post Debridement Size (cm) - Width 0.2 -Post Debridement Size (cm) - Depth 0.1 -Total Square Cm 0.08 -Wound/Ulcer Outcome Not Healed -Ulcer Cleansing Rinsed/ Irrigated with Saline -Foul Odor after Cleansing No -Bioengineered Tissue No -Bleeding Controlled with Pressure -Offloading No -Type of Offloading -Treatment Response Procedure Tolerated Well Pain Scale: 0-10 Numeric Is Patient Pain Free? Yes Wound debrided: left lateral plantar foot Laterality: Left Type of Debridement: Selective debridement Anesthesia Used: 5% Lidocaine Gel Depth: Down to and including healthy tissue, in the subcutaneous layer Percentage of wound debrided: 100 Instrument Used: 5mm curette Tissue Removed: yellow slough, devitalized tissue Severity: Fat Layer Exposed Amount of bleeding with debridement: Mild Bleeding Controlled with: Compression and gauze Patient tolerated procedure well Assessment/Plan Active Problems Abscess of left foot excluding toes (Chronic) Assessment: cellulitis/abscess left lateral plantar foot Plan: Jose J's wound was evaluated and debrided with excision of the edges of the wound that were devitalized. Still have not received records from [facility] including vascular studies and xrays. Will continue Aquacel Ag and gauze and will have him offload his foot as much as possible. Doxycyline continued. Will have him use hibiclens 2-3 times/week to topically disrupt infection as well. Increase protein intake. Follow up in 2 weeks. Call sooner if he develops uncontrollable bleeding, increased drainage, odor or increased pain.
== END 2019-09-22 23:59 ==
LOC: WC 10:00
PROVIDERS: PCP Family Medicine; Referring Provider Family Medicine; Visit Provider Family Medicine
DX: L02.612 Cutaneous abscess of left foot (principal); L03.116 Cellulitis of left lower limb
CPT/HCPCS: 11042

== ENCOUNTER 2019-10-14 10:00 | Outpatient (RCR) | payer BC, SELFPAY ==
[2019-09-23 00:17] VITALS: BP 185/77; PULSE 73; RESP 16; TEMP 37
[2019-09-30 10:22] VITALS: BP 134/74; PULSE 76; RESP 16; TEMP 36.2; BMI 29.5
--- NOTE | 2019-09-30 15:27 | PN.PCM_ITS ---
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 Giordano. He had a wound to this same area in February 2019 and was seen at [facility] and treated there for 9 weeks with Aquacel and was placed in a wedge shoe to offload his foot. He has undergone vascular testing that he reports was normal and had xrays which did not show osteomyelitis. 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 He and his did not want to do surgery. His wound closed and he was discharged from the facility at the end of March. He began developing pain over the last 2 weeks and swelling and went to see his primary care doctor on Thursday who performed an I and D and had him do xrays to r/o osteomyelitis and performed a wound culture. He was started on Bactrim DS and has not heard back about any of the results at this time. He states that the pain and the drainage is improving. He has been using Aquacel and a bandaid over the wound. He denies fever or chills or nausea but did have these last weekend before he was started on antibiotics. Progress of Wound: Jose J returns today for follow up of surgical wound/abscess of his left plantar foot. He is still taking antibiotics but has not healed over the last 2 weeks. He reports that his pain has increased slightly. There is no odor or increase in drainage. There has been no significant change in his wound. Denies systemic symptoms of infection such as erythema, fever, chills, nausea or vomiting. - Physical Exam Vital Signs Temp Pulse Resp BP 97.2 F L 76 16 134/74 H 09/30/19 10:22 09/30/19 10:22 09/30/19 10:22 09/30/19 10:22 General: Alert, Oriented x3, Cooperative, No apparent distress HEENT: Atraumatic, Normocephalic Oral: Moist Mucosa Abdomen: Obese Extremities: No edema, Peripheral Pulses Normal Skin: Ulcer/ Wound Wound Measurements and Assessment WC - Nurse 1 - General Ulcer Measurement Start: 09/30/19 10:22 Freq: Status: Active Protocol: Activity Type Activity Date Activity User E-Sign Co-Sign Detail Recorded Client Recorded Date Recorded By Document 09/30/19 10:22 MW [id number] 09/30/19 10:26 MW 09/30/19 10:22 Wound Center Nurse 1 [Ulcer Assessment] #1- L LATERAL PLANTAR FOOT -Combined with other wound No -Current Size (cm) - Length 0.1 -Current Size (cm) - Width 0.1 -Current Size (cm) - Depth 0.1 -Total Square Cm 0.01 -Photo Taken No -Epithelialization None Present -Tunneling No -Undermining/Tunneling No -Circular Undermining No -Exudate Amt None Present -Wound Margin Flat & Intact -Granulation Amt None Present (0 %) -Granulation Quality N/A -Slough/Fibrin Yes -Necrosis Amt Small (1-33%) -Necrotic Tissue Type Adherent Slough -Structure Exposed N/A -Texture (Flory-wound Skin Appearance) Assessed,Callus -Moisture (Flory-wound Skin Appearance No Abnormality, ) Dry/Scaly -Color (Flory-wound Skin Appearance) No Abnormality, Assessed -Temperature (Flory-wound Skin No Abnormality Appearance) (Pt Warm) -Tenderness on Palpation (Flory-wound Yes Skin Appearance) -Ulcer Cleansing Rinsed/ Irrigated with Saline -Foul Odor after Cleansing No -Anesthetic Used 5% Lidocaine Gel [Edema Assessment] -Lower Limb Edema Present No WC - Nurse 2 - General Ulcer CM Notes Start: 09/30/19 10:22 Freq: Status: Active Protocol: Activity Type Activity Date Activity User E-Sign Co-Sign Detail Recorded Client Recorded Date Recorded By Document 09/30/19 10:41 DV [id number] 09/30/19 10:47 DV 09/30/19 10:41 Wound Center Nurse 2 [Procedure/Treatment] #1- L LATERAL PLANTAR FOOT -Time 10:42 -Correct Patient Yes -Correct Side, Site, Position Yes -Correct Procedure Yes -Procedure Performed Yes -Type of Procedure Debridement -Clinical Debridement Subcutaneous -Post Debridement Size (cm) - Length 0.3 -Post Debridement Size (cm) - Width 0.7 -Post Debridement Size (cm) - Depth 0.1 -Total Square Cm 0.21 -Wound/Ulcer Outcome Not Healed -Ulcer Cleansing Rinsed/ Irrigated with Saline -Foul Odor after Cleansing No -Bioengineered Tissue No -Bleeding Controlled with Pressure -Offloading No -Treatment Response Procedure Tolerated Well [See Physician Procedure note for Specifics] Pain Scale: 0-10 Numeric [Pain] -Is Patient Pain Free? Yes Psych/Mental Status: Normal Affect, Appropriate Debridement Note Post-Debridement Measurements/Treatment WC - Nurse 2 - General Ulcer CM Notes Start: 09/30/19 10:22 Freq: Status: Active Protocol: Activity Type Activity Date Activity User E-Sign Co-Sign Detail Recorded Client Recorded Date Recorded By Document 09/30/19 10:41 DV [id number] 09/30/19 10:47 DV 09/30/19 10:41 Wound Center Nurse 2 #1- L LATERAL PLANTAR FOOT -Time 10:42 -Correct Patient Yes -Correct Side, Site, Position Yes -Correct Procedure Yes -Procedure Performed Yes -Type of Procedure Debridement -Clinical Debridement Subcutaneous -Post Debridement Size (cm) - Length 0.3 -Post Debridement Size (cm) - Width 0.7 -Post Debridement Size (cm) - Depth 0.1 -Total Square Cm 0.21 -Wound/Ulcer Outcome Not Healed -Ulcer Cleansing Rinsed/ Irrigated with Saline -Foul Odor after Cleansing No -Bioengineered Tissue No -Bleeding Controlled with Pressure -Offloading No -Treatment Response Procedure Tolerated Well Pain Scale: 0-10 Numeric Is Patient Pain Free? 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 He has not had any advanced imaging such as CT scan, only xrays at the onset of his treatment. Due to the lack of anicipated improvement with appropriate treatment, I am ordering a CT scan of his foot to evaluate the soft tissue and bony structures further to r/o osteomyelitis or other cause of poor progress of healing with appropriate management. Wound culture also taken today. Still have not received records from [facility] including vascular studies and xrays. Will continue Aquacel Ag and gauze and will have him offload his foot as much as possible. Doxycyline continued. Will have him us e hibiclens 2-3 times/week to topically disrupt infection as well. Increase protein intake. Follow up in 2 weeks. Call sooner if he develops uncontrollable bleeding, increased drainage, odor or increased pain.
--- NOTE | 2019-09-30 16:42 | WC ---
CT with contrast was ordered today. according to [facility] this procedure does not need prior auth. Reference #[id number]. Spoke with patients confirming husbands appt for CT on 10/14/19 @ 0830. Patient is to be at hospital no later than [address] is with contrast, patient is to be fasting for 3 hours prior to procedure.
--- NOTE | 2019-10-14 07:51 | CT_ITS ---
Exam: Noncontrast CT of the left foot. HISTORY: Soft tissue ulcer of the plantar surface. COMPARISON: None. No radiographs. FINDINGS: There is no definite significant soft tissue excavation or focal soft tissue loss. However, there appear to be nonspecific thickening, edema, and possible skin defect directly under the head of the fifth metatarsal. Correlate with physical exam. No definite focal fluid collection. No gross abscess although the exam is limited by absence of IV contrast. Mild deformity of the head of the fifth metatarsal along the plantar surface as seen on image 30 of sequence 601 and image 72 of series 602. Osteomyelitis of the head of the fifth metatarsal is not excluded. No other focal skeletal abnormalities. CT/Extremity Lower WITH Contrast IMPRESSION: Question of shallow soft tissue wound directly plantar to the head of the fifth metatarsal. No gross abscess. Cannot exclude osteomyelitis of the head of the fifth metatarsal. Electronically Signed: Alexandru House MD at 19:03 EDT , Service support ,
[2019-10-14 08:30] LABS: CREATININE FINGERSTICK 0.9 mg/dL (0.70-1.30)
[2019-10-14 09:22] VITALS: BP 138/51; PULSE 77; RESP 16; TEMP 36.8; BMI 29.5
--- NOTE | 2019-10-14 18:08 | PN.PCM_ITS ---
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 Giordano. He had a wound to this same area in February 2019 and was seen at [facility] and treated there for 9 weeks with Aquacel and was placed in a wedge shoe to offload his foot. He has undergone vascular testing that he reports was normal and had xrays which did not show osteomyelitis. 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 He and his did not want to do surgery. His wound closed and he was discharged from the facility at the end of March. He began developing pain over the last 2 weeks and swelling and went to see his primary care doctor on Thursday who performed an I and D and had him do xrays to r/o osteomyelitis and performed a wound culture. He was started on Bactrim DS and has not heard back about any of the results at this time. He states that the pain and the drainage is improving. He has been using Aquacel and a bandaid over the wound. He denies fever or chills or nausea but did have these last weekend before he was started on antibiotics. Progress of Wound: Jose J returns today for follow up of nonhealing surgical wound/abscess of his left plantar foot. He is still taking antibiotics but has not healed over the last 2 weeks. He reports that his pain and drainage has increased since stopping doxycycline and starting ciprofloxacin. There is no odor. There has been no significant change in his wound. Denies systemic symptoms of infection such as erythema, fever, chills, nausea or vomiting. - Physical Exam Vital Signs Temp Pulse Resp BP 98.2 F 77 16 138/51 H 05/22/20 09:22 10/14/19 09:22 10/14/19 09:22 10/14/19 09:22 General: Alert, Oriented x3, Cooperative, No apparent distress HEENT: Atraumatic, Normocephalic Oral: Moist Mucosa Abdomen: Obese Extremities: No edema, Peripheral Pulses Normal Skin: Ulcer/ Wound Wound Measurements and Assessment WC - Nurse 1 - General Ulcer Measurement Start: 09/30/19 10:22 Freq: Status: Active Protocol: Activity Type Activity Date Activity User E-Sign Co-Sign Detail Recorded Client Recorded Date Recorded By Document 10/14/19 09:22 [facility] [id number] 10/14/19 09:29 [facility] 10/14/19 09:22 Wound Center Nurse 1 [Ulcer Assessment] #1- L LATERAL PLANTAR FOOT -Combined with other wound No -Current Size (cm) - Length 0.1 -Current Size (cm) - Width 0.1 -Current Size (cm) - Depth 0.1 -Total Square Cm 0.01 -Date of Last Picture (Recall this 10/14/19 field) -Photo Taken Yes -Epithelialization None Present -Tunneling No -Undermining/Tunneling No -Circular Undermining No -Exudate Amt None Present -Wound Margin Flat & Intact -Granulation Amt None Present (0 %) -Slough/Fibrin Yes -Necrosis Amt Small (1-33%) -Necrotic Tissue Type Adherent Slough -Texture (Flory-wound Skin Appearance) Assessed,Callus ,Scarring -Moisture (Flory-wound Skin Appearance Assessed,Dry/ ) Scaly -Color (Flory-wound Skin Appearance) Assessed -Temperature (Flory-wound Skin No Abnormality Appearance) (Pt Warm) -Tenderness on Palpation (Flory-wound No Skin Appearance) -Ulcer Cleansing Rinsed/ Irrigated with Saline -Foul Odor after Cleansing No -Anesthetic Used 5% Lidocaine Gel - Nurse 2 - General Ulcer CM Notes Start: 09/30/19 10:22 Freq: Status: Active Protocol: Activity Type Activity Date Activity User E-Sign Co-Sign Detail Recorded Client Recorded Date Recorded By Document 10/14/19 10:38 DV [id number] 10/14/19 10:53 DV 10/14/19 10:38 Wound Center Nurse 2 [Procedure/Treatment] -Time 10:39 -Correct Patient Yes -Correct Side, Site, Position Yes -Correct Procedure Yes -Procedure Performed Yes -Type of Procedure Debridement -Clinical Debridement Subcutaneous -Post Debridement Size (cm) - Length 1.0 -Post Debridement Size (cm) - Width 1.0 -Post Debridement Size (cm) - Depth 0.2 -Total Square Cm 1.00 -Wound/Ulcer Outcome Not Healed -Ulcer Cleansing Rinsed/ Irrigated with Saline -Foul Odor after Cleansing No -Bioengineered Tissue No -Bleeding Controlled with Pressure -Offloading No -Treatment Response Procedure Tolerated Well [See Physician Procedure note for Specifics] Pain Scale: 0-10 Numeric [Pain] -Is Patient Pain Free? Yes Psych/Mental Status: Normal Affect, Appropriate Debridement Note Post-Debridement Measurements/Treatment WC - Nurse 2 - General Ulcer CM Notes Start: 09/30/19 10:22 Freq: Status: Active Protocol: Activity Type Activity Date Activity User E-Sign Co-Sign Detail Recorded Client Recorded Date Recorded By Document 09/30/19 10:41 DV [id number] 09/30/19 10:47 DV Document 10/14/19 10:38 DV [id number] 10/14/19 10:53 DV 09/30/19 10/14/19 10:41 10:38 Wound Center Nurse 2 #1- L LATERAL PLANTAR FOOT -Time 10:42 10:39 -Correct Patient Yes Yes -Correct Side, Site, Position Yes Yes -Correct Procedure Yes Yes -Procedure Performed Yes Yes -Type of Procedure Debridement Debridement -Clinical Debridement Subcutaneous Subcutaneous -Post Debridement Size (cm) - Length 0.3 1.0 -Post Debridement Size (cm) - Width 0.7 1.0 -Post Debridement Size (cm) - Depth 0.1 0.2 -Total Square Cm 0.21 1.00 -Wound/Ulcer Outcome Not Healed Not Healed -Ulcer Cleansing Rinsed/ Rinsed/ Irrigated with Irrigated with Saline Saline -Foul Odor after Cleansing No No -Bioengineered Tissue No No -Bleeding Controlled with Pressure Pressure -Offloading No No -Treatment Response Procedure Procedure Tolerated Well Tolerated Well Pain Scale: 0-10 Numeric Is Patient Pain Free? 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 He had CT of his foot just prior to his appointment today but the test has not been read by radiology. There is no obvious abscess or osteomyelitis upon my review but will wait for official reading. Wound culture repeated again today. Due to the lack of anicipated improvement with appropriate treatment, I am ordering a CT scan of his foot to evaluate the soft tissue and bony structures further to r/o osteomyelitis or other cause of poor progress of healing with appropriate management. Still have not received records from [facility] including vascular studies and xrays. Will continue Aquacel Ag and gauze for moderate/heavy drainage daily and will have him offload his foot as much as possible. Doxycyline continued. Will have him use hibiclens 2-3 times/week to topically disrupt infection as well. Increase protein intake. Follow up in 2 weeks. Call sooner if he develops uncontrollable bleeding, increased drainage, odor or increased pain.
== END 2019-10-23 23:59 ==
LOC: WC 10:00
PROVIDERS: PCP Family Medicine; Referring Provider Family Medicine; Visit Provider Family Medicine
DX: L02.612 Cutaneous abscess of left foot (principal); L03.116 Cellulitis of left lower limb; L97.522 Non-pressure chronic ulcer of other part of left foot with fat layer exposed
CPT/HCPCS: 11042; 73701; 87070; 87075; 87077; 87186; 87205; Q9967

== ENCOUNTER 2019-11-16 08:30 | Outpatient (RCR) | payer BC, SELFPAY ==
[2019-10-24 00:27] VITALS: BP 138/51; PULSE 77; RESP 16; TEMP 36.8
[2019-10-28 09:59] VITALS: BP 156/74; PULSE 69; RESP 16; TEMP 36.7; BMI 29.5
--- NOTE | 2019-10-28 16:59 | PCM.WC.PN ---
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 Giordano. He had a wound to this same area in February 2019 and was seen at [facility] and treated there for 9 weeks with Aquacel and was placed in a wedge shoe to offload his foot. He has undergone vascular testing that he reports was normal and had xrays which did not show osteomyelitis. 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 He and his did not want to do surgery. His wound closed and he was discharged from the facility at the end of March. He began developing pain over the last 2 weeks and swelling and went to see his primary care doctor on Thursday who performed an I and D and had him do xrays to r/o osteomyelitis and performed a wound culture. He was started on Bactrim DS and has not heard back about any of the results at this time. He states that the pain and the drainage is improving. He has been using Aquacel and a bandaid over the wound. He denies fever or chills or nausea but did have these last weekend before he was started on antibiotics. Progress of Wound: Jose J returns today for follow up of nonhealing surgical wound/abscess of his left plantar foot. He is still taking antibiotics but has not healed over the last 2 weeks. He reports that his pain and drainage has remained the same with doxycycline. There is no odor. There has been no significant change in his wound. He underwent CT scan on 10/14/2019 which showed that the wound is directly under his 5th metatarsal and there is questionable osteomyelitis of the bone in that area. He did not start Clindamycin for treatment of the wound culture that was positive. Denies systemic symptoms of infection such as erythema, fever, chills, nausea or vomiting. - Physical Exam Vital Signs Temp Pulse Resp BP 98.1 F 69 16 156/74 H 10/28/19 09:59 10/28/19 09:59 10/28/19 09:59 10/28/19 09:59 General: Alert, Oriented x3, Cooperative, No apparent distress HEENT: Atraumatic, Normocephalic Oral: Moist Mucosa Skin: Ulcer/ Wound Wound Measurements and Assessment WC - Nurse 1 - General Ulcer Measurement Start: 10/28/19 09:59 Freq: Status: Active Protocol: Activity Type Activity Date Activity User E-Sign Co-Sign Detail Recorded Client Recorded Date Recorded By Document 10/28/19 09:59 [facility] [id number] 10/28/19 10:05 [facility] 10/28/19 09:59 Wound Center Nurse 1 [Ulcer Assessment] #1- L LATERAL PLANTAR FOOT -Combined with other wound No -Current Size (cm) - Length 0.5 -Current Size (cm) - Width 0.6 -Current Size (cm) - Depth 0.2 -Total Square Cm 0.30 -Photo Taken No -Epithelialization None Present -Tunneling No -Undermining/Tunneling No -Circular Undermining No -Exudate Amt None Present -Wound Margin Flat & Intact -Granulation Amt Large (67-100%) -Granulation Quality Red -Slough/Fibrin Yes -Necrosis Amt Small (1-33%) -Necrotic Tissue Type Adherent Slough -Texture (Flory-wound Skin Appearance) Assessed,Callus ,Scarring -Moisture (Flory-wound Skin Appearance Assessed,Dry/ ) Scaly -Color (Flory-wound Skin Appearance) Assessed -Temperature (Flory-wound Skin No Abnormality Appearance) (Pt Warm) -Tenderness on Palpation (Flory-wound No Skin Appearance) -Ulcer Cleansing Rinsed/ Irrigated with Saline -Foul Odor after Cleansing No -Anesthetic Used 5% Lidocaine Gel WC - Nurse 2 - General Ulcer CM Notes Start: 10/28/19 09:59 Freq: Status: Active Protocol: Activity Type Activity Date Activity User E-Sign Co-Sign Detail Recorded Client Recorded Date Recorded By Document 10/28/19 10:41 DV [id number] 10/28/19 10:59 DV 06/05/20 10:41 Wound Center Nurse 2 [Procedure/Treatment] -Time 10:42 -Correct Patient Yes -Correct Side, Site, Position Yes -Correct Procedure Yes -Procedure Performed Yes -Type of Procedure Debridement -Clinical Debridement Subcutaneous -Post Debridement Size (cm) - Length 0.6 -Post Debridement Size (cm) - Width 0.7 -Post Debridement Size (cm) - Depth 0.1 -Total Square Cm 0.42 -Wound/Ulcer Outcome Not Healed -Ulcer Cleansing Rinsed/ Irrigated with Saline -Foul Odor after Cleansing No -Bioengineered Tissue No -Bleeding Controlled with Pressure -Offloading No -Treatment Response Procedure Tolerated Well [See Physician Procedure note for Specifics] Pain Scale: 0-10 Numeric [Pain] -Is Patient Pain Free? Yes Psych/Mental Status: Normal Affect, Appropriate Debridement Note Post-Debridement Measurements/Treatment WC - Nurse 2 - General Ulcer CM Notes Start: 10/28/19 09:59 Freq: Status: Active Protocol: Activity Type Activity Date Activity User E-Sign Co-Sign Detail Recorded Client Recorded Date Recorded By Document 10/28/19 10:41 DV [id number] 10/28/19 10:59 DV 10/28/19 10:41 Wound Center Nurse 2 #1- L LATERAL PLANTAR FOOT -Time 10:42 -Correct Patient Yes -Correct Side, Site, Position Yes -Correct Procedure Yes -Procedure Performed Yes -Type of Procedure Debridement -Clinical Debridement Subcutaneous -Post Debridement Size (cm) - Length 0.6 -Post Debridement Size (cm) - Width 0.7 -Post Debridement Size (cm) - Depth 0.1 -Total Square Cm 0.42 -Wound/Ulcer Outcome Not Healed -Ulcer Cleansing Rinsed/ Irrigated with Saline -Foul Odor after Cleansing No -Bioengineered Tissue No -Bleeding Controlled with Pressure -Offloading No -Treatment Response Procedure Tolerated Well Pain Scale: 0-10 Numeric Is Patient Pain Free? Yes Wound debrided: left lateral plantar foot Laterality: Left Type of Debridement: Excisional debridement Anesthesia Used: 4% Lidocaine Solution Depth: Down to and including healthy tissue, in the subcutaneous layer Percentage of wound debrided: 100 Instrument Used: 5mm curette Tissue Removed: Yellow slough, devitalized tissue Severity: Fat Layer Exposed Amount of bleeding with debridement: Mild Bleeding Controlled with: Compression and gauze Patient tolerated procedure well Assessment/Plan Assessment: cellulitis/abscess left lateral plantar foot Plan: Jose J's wound was evaluated and debrided and is not showing any significant improvement. Discussed ongoing treratment and recommended that he see podiatry for possible surgical debridement/biopsy to evaluate for osteomyelitis with potential closure vs. IV antibiotic treatment vs. assistant terminal manager oral antibiotic treatment. Other things to consider are offloading boot to decrease pressure to the area as well. He and his are going to consider these options and will try changing antibiotic to clindamycin. If there is worsening, his would like to switch back to doxycycline as she feels that this has helped the most to prevent worsening of his wound. Due to the lack of anticipated improvement with appropriate treatment, I am ordering a CT scan of his foot to evaluate the soft tissue and bony structures further to r/o osteomyelitis or other cause of poor progress of healing with appropriate management. Still have not received records from [facility] including vascular studies and xrays. Will continue Aquacel Ag and gauze for moderate/heavy drainage daily and will have him offload his foot as much as possible. Will have him use hibiclens 2-3 times/week to topically disrupt infection as well. Increase protein intake. Follow up in 2 weeks. Call sooner if he develops uncontrollable bleeding, increased drainage, odor or increased pain.
[2019-11-16 08:19] VITALS: BP 163/94; PULSE 69; RESP 16; TEMP 36.3; BMI 29.5
--- NOTE | 2019-11-16 09:40 | PN.PCM_ITS ---
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 Status: Chronic Code(s): L97.522 - Non-pressure chronic ulcer of other part of left foot with fat layer exposed (2) Colonization status Status: Chronic Code(s): Z22.9 - Carrier of infectious disease, unspecified (3) Delayed wound healing Status: Chronic Code(s): T14.8XXD - Other injury of unspecified body region, subsequent encounter Type of Wound Date of Service: 11/16/19 Chief Complaint: nonhealing wound left plantar foot History of Wound: Jose J is a 64 yo gentleman that presents to the wound healing center for evaluation and treatment of a wound to his left plantar foot s/p I and D previously by his PCP, Dr. Giordano. He had a wound to this same area in February 2019 and was seen at [facility] and treated there for 9 weeks with Aquacel and was placed in a wedge shoe to offload his foot. He has undergone vascular testing that he reports was normal and had xrays which did not show osteomyelitis. 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 He and his did not want to do surgery. His wound closed and he was discharged from the facility at the end of March. He began developing pain over the last 2 weeks and swelling and went to see his primary care doctor in the recent setting who performed an I and D and had him do xrays to r/o osteomyelitis and performed a wound culture. He denies fever or chills or nausea but did have these last weekend before he was started on antibiotics. Recently he is growing out staph epidermidis and his responded well to doxycycline. His doxycycline course is in process. At one point he was changed to clindamycin and his reports it got worse so she stopped this. He recently had a CT scan of his foot also would like to review the results. He keeps walking on his foot in a steel toe boot 4 days a week and now refuses to wear his offloading wedge shoe because it makes him feel like he is falling. His is apprehensive to consider other offloading. He denies claudication with walking. He denies fever, chill, nausea, vomiting, redness or odor. His reports that the drainage varies from clear to red to yellow and even green which is not noted today. Progress of Wound: Stable and chronic - Physical Exam Vital Signs Temp Pulse Resp BP 97.3 F L 69 16 163/94 H 11/16/19 08:19 11/16/19 08:19 11/16/19 08:19 11/16/19 08:19 General: Alert, Oriented x3, Cooperative, No apparent distress HEENT: Atraumatic Extremities: No cyanosis, Capillary Refill Less than 3 Seconds - All digits left foot, No Calf Tenderness, Edema, Peripheral Pulses Normal - He does have a palpable 2 out of 4 PT and DP pulse on the left foot Skin: Ulcer/ Wound - No purulence, erythema, string, odor, acute signs of infection or deep probing noted. There is a granular base ulcer with peripheral callus and some undermining from the 9:00 to 3 o'clock position. The adjacent skin is hairless and atrophic Wound Measurements and Assessment WC - Nurse 1 - General Ulcer Measurement Start: 10/28/19 09:59 Freq: Status: Active Protocol: Activity Type Activity Date Activity User E-Sign Co-Sign Detail Recorded Client Recorded Date Recorded By Document 11/16/19 08:19 DV [id number] 11/16/19 08:30 DV 11/16/19 08:19 Wound Center Nurse 1 [Ulcer Assessment] #1- L LATERAL PLANTAR FOOT -Combined with other wound No -Current Size (cm) - Length 0.3 -Current Size (cm) - Width 0.3 -Current Size (cm) - Depth 0.2 -Total Square Cm 0.09 -Photo Taken No -Epithelialization None Present -Tunneling No -Undermining/Tunneling No -Circular Undermining No -Classification - Thickness Full Thickness without Exposed Support Structure -Exudate Amt Medium -Exudate Type Serosanguineous -Wound Margin Indistinct, Non -Visible -Granulation Amt None Present (0 %) -Granulation Quality N/A -Slough/Fibrin Yes -Necrosis Amt None Present (0 %) -Structure Exposed None/Limited to Skin Breakdown -Texture (Flory-wound Skin Appearance) Assessed, Scarring -Moisture (Flory-wound Skin Appearance Assessed, ) Weeping -Color (Flory-wound Skin Appearance) No Abnormality, Assessed -Temperature (Flory-wound Skin No Abnormality Appearance) (Pt Warm) -Tenderness on Palpation (Flory-wound No Skin Appearance) -Ulcer Cleansing Rinsed/ Irrigated with Saline -Foul Odor after Cleansing No -Anesthetic Used 4% Lidocaine Solution - Nurse 2 - General Ulcer CM Notes Start: 10/28/19 09:59 Freq: Status: Active Protocol: Activity Type Activity Date Activity User E-Sign Co-Sign Detail Recorded Client Recorded Date Recorded By Document 11/16/19 09:20 MARIA [id number] 11/16/19 09:24 11/16/19 09:20 Wound Center Nurse 2 [Procedure/Treatment] -Time 09:21 -Correct Patient Yes -Correct Side, Site, Position Yes -Correct Procedure Yes -Procedure Performed Yes -Type of Procedure Debridement -Clinical Debridement Subcutaneous -Post Debridement Size (cm) - Length 1.2 -Post Debridement Size (cm) - Width 0.8 -Post Debridement Size (cm) - Depth 0.2 -Total Square Cm 0.96 -Wound/Ulcer Outcome Not Healed -Ulcer Cleansing Rinsed/ Irrigated with Saline -Foul Odor after Cleansing No -Bioengineered Tissue No -Bleeding Controlled with Pressure -Offloading Yes -Type of Offloading Camwalker -Treatment Response Procedure Tolerated Well [See Physician Procedure note for Specifics] Pain Scale: 0-10 Numeric [Pain] -Is Patient Pain Free? Yes Musculoskeletal: No Tenderness to Palpation of Joints or Extremities, Muscle Wasting, - - Dorsal contraction of lesser toes with prominent fifth metatarsal head Neurological: - - Lack of epicritic sensation light touch Psych/Mental Status: Normal Affect, Appropriate Debridement Note Post-Debridement Measurements/Treatment - Nurse 2 - General Ulcer CM Notes Start: 10/28/19 09:59 Freq: Status: Active Protocol: Activity Type Activity Date Activity User E-Sign Co-Sign Detail Recorded Client Recorded Date Recorded By Document 10/28/19 10:41 DV [id number] 10/28/19 10:59 DV Document 11/16/19 09:20 MARIA [id number] 11/16/19 09:24 10/28/19 11/16/19 10:41 09:20 Wound Center Nurse 2 #1- L LATERAL PLANTAR FOOT -Time 10:42 09:21 -Correct Patient Yes Yes -Correct Side, Site, Position Yes Yes -Correct Procedure Yes Yes -Procedure Performed Yes Yes -Type of Procedure Debridement Debridement -Clinical Debridement Subcutaneous Subcutaneous -Post Debridement Size (cm) - Length 0.6 1.2 -Post Debridement Size (cm) - Width 0.7 0.8 -Post Debridement Size (cm) - Depth 0.1 0.2 -Total Square Cm 0.42 0.96 -Wound/Ulcer Outcome Not Healed Not Healed -Ulcer Cleansing Rinsed/ Rinsed/ Irrigated with Irrigated with Saline Saline -Foul Odor after Cleansing No No -Bioengineered Tissue No No -Bleeding Controlled with Pressure Pressure -Offloading No Yes -Type of Offloading Camwalker -Treatment Response Procedure Procedure Tolerated Well Tolerated Well Pain Scale: 0-10 Numeric Is Patient Pain Free? Yes Yes Wound debrided: sub 5th metatarsal head Laterality: Left Type of Debridement: Excisional debridement Anesthesia Used: 5% Lidocaine Gel Depth: in the subcutaneous layer Percentage of wound debrided: 100 Instrument Used: #15 blade Tissue Removed: fibrous, devitalized subcutaneous, biofilm, slough Severity: Fat Layer Exposed Amount of bleeding with debridement: Mild Bleeding Controlled with: Pressure Patient tolerated procedure well Assessment/Plan Assessment: left lateral plantar foot chronic ulcer. delayed healing. h/o infection and cellulitis Plan: This patient was evaluated and debridement was performed in an excisional subcutaneous manner as noted in the clinical panel including the peripheral callus. We discussed ongoing treatment options. It is noted this patient is not performing really any offloading. They are educated on the importance of this. He will likely not make progress if he continues to walk on his wound all day. He does not like his wedge offloading shoe. I offered him a cam walker boot with dual density Plastizote offloading liner pocket. A prescription was provided for him to obtain this at the foot and ankle center. They are very apprehensive and resistant to this recommendation. They are inquiring conf irmation of if it is covered by their insurance. I advised him is completely acceptable to confirm this prior to proceeding however it is regardless still recommended from a medical necessity standpoint and for limb salvage. I also recommend that he brings his steel toe boot in to see if I can potentially modify the insole in the boot. I recommend that he also tries to go nonweightbearing while at home to alleviate pressure on the site. His cultures are most recently demonstrating staph epidermidis. He was advised to complete the doxycycline course. He was reassured no local signs of infection are noted today. I do not recommend updating a culture today. I do not see any infectious drainage as his is reporting. His x-ray reports do not indicate acute osteomyelitis or other radiographic evidence of infection. His CT scan also was negative however it is noted that osteomyelitis cannot be fully ruled out with this diagnostic imaging study of choice anyways. There is some d eformity or flare that does naturally occur at the fifth metatarsal head and there is some thickening of the bone which often happens at weightbearing surfaces. A bone biopsy or simple resection of the fifth metatarsal head can be performed which is the gold standard confirming osteomyelitis and alleviating his foot deformity. He previously did not want to proceed forward with surgical intervention. I am optimistic that we can proceed by improving compliance with some of the other basic wound care plan recommendations. If he continues to demonstrate bacterial colonization in the ulcer, I advised him that I would want to have an infectious disease consultation. He was also provided with medical grade antimicrobial Cary-Hex soap and was advised to wash the ulcer with this daily. The plain film x-ray imaging studies on CD are requested from the other facility that he is performed. I would like to review these prior to moving forward with any invasive procedures also. He relates he had noninvasive vascular arterial studies performed approximately 1 year ago at an outside facility and he had normal perfusion. He did also palpable pulses. Regardless his wound has been open for potentially over 1 year I would like to review the studies to look for any evidence of calcification or small vessel disease which may be contributing to his delayed healing. Will continue Aquacel Ag and gauze for moderate/heavy drainage daily and will have him offload his foot as much as possible. Over 20 minutes was spent with this [id number] encounter including evaluation, treatment, management, education, chart review, and care coordination. I answered all his questions. . 2019 [employer] entry. Reviewed today: Medications and allergies documented and reconciled. Reviewed 11-16-2019 he has an above normal body mass index of 29.6. He was advised on diet and activity to optimize health. It is also noted his blood pressure is documented at an elevated level of 163/94. To follow-up with primary care physician. He is a current tobacco nonuser. He denies falling within the past year.
== END 2019-11-22 23:59 ==
LOC: WC 08:30
PROVIDERS: PCP Family Medicine; Referring Provider Family Medicine; Visit Provider Family Medicine
DX: L02.612 Cutaneous abscess of left foot (principal); L03.116 Cellulitis of left lower limb; L97.522 Non-pressure chronic ulcer of other part of left foot with fat layer exposed; Z22.9 Carrier of infectious disease, unspecified
CPT/HCPCS: 11042

== ENCOUNTER 2019-12-16 10:30 | Outpatient (RCR) | payer BC, SELFPAY ==
[2019-11-23 00:26] VITALS: BP 163/94; PULSE 69; RESP 16; TEMP 36.3
[2019-11-30 10:00] VITALS: BP 130/79; PULSE 81; RESP 18; TEMP 36.9; BMI 29.5
--- NOTE | 2019-11-30 10:55 | PCM.WC.PN ---
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 Status: Chronic Current Visit: Yes Code(s): L97.522 - Non-pressure chronic ulcer of other part of left foot with fat layer exposed (2) Colonization status Status: Chronic Current Visit: Yes Code(s): Z22.9 - Carrier of infectious disease, unspecified (3) Delayed wound healing Status: Chronic Current Visit: Yes Code(s): T14.8XXD - Other injury of unspecified body region, subsequent encounter Type of Wound Date of Service: 11/30/19 Chief Complaint: nonhealing wound left plantar foot History of Wound: Jose J is a 64 y/o gentleman that presents to the wound healing center for evaluation and treatment of a wound to his left plantar foot s/p I and D previously by his PCP, Dr. Giordano. He had a wound to this same area in February 2019 and was seen at [facility] and treated there for 9 weeks with Aquacel and was placed in a wedge shoe to offload his foot. He has undergone vascular testing that he reports was normal and had xrays which did not show osteomyelitis. 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 He and his did not want to do surgery. His wound closed and he was discharged from the facility at the end of March. He began developing pain prior to wound care center referral with swelling and went to see his primary care doctor in the recent setting who performed an I and D and had him do xrays to r/o osteomyelitis and performed a wound culture. He denies fever or chills or nausea but did have these last weekend before he was started on antibiotics. Recently he is growing out staph epidermidis and his responded well to doxycycline. His doxycycline course is scheduled to and within the next couple of days. His is concerned that his infection will come back when he completes antibiotics and asked if he can be kept on it indefinitely. He recently had a CT scan of his foot also and these results were previously reviewed. He keeps walking on his foot in a steel toe boot 4 days a week and now refuses to wear his offloading wedge shoe because it makes him feel like he is falling. He is scheduled to get an offloading CAM Walker boot at the foot and ankle center but did not do this yet. He brought his shoe with gel sole liner today and is amendable to have a pocket cut out. He denies claudication with walking. He had vascular studies performed last February at an outside facility and these have been requested but not received yet. He denies fever, chill, nausea, vomiting, redness or odor. Progress of Wound: Stable and chronic - Physical Exam Vital Signs Temp Pulse Resp BP 98.4 F 81 18 130/79 H 11/30/19 10:00 11/30/19 10:00 11/30/19 10:00 11/30/19 10:00 General: Alert, Oriented x3, Cooperative, No apparent distress Extremities: No cyanosis, Capillary Refill Less than 3 Seconds, No Calf Tenderness, Diminished Peripheral Pulses - Palpable DP pulse, Edema Skin: Ulcer/ Wound - No purulence, erythema, streaking, odor, infection. Peripheral skin is hairless and atrophic. The ulcer bed is pale granular and has peripheral epithelialization. There is no deep probing or periwound necrosis or inflammation Wound Measurements and Assessment WC - Nurse 1 - General Ulcer Measurement Start: 11/30/19 09:59 Freq: Status: Active Protocol: Activity Type Activity Date Activity User E-Sign Co-Sign Detail Recorded Client Recorded Date Recorded By Document 11/30/19 10:00 DV [id number] 11/30/19 10:05 DV 11/30/19 10:00 Wound Center Nurse 1 [Ulcer Assessment] #1- L LATERAL PLANTAR FOOT -Combined with other wound No -Current Size (cm) - Length 0.7 -Current Size (cm) - Width 1.6 -Current Size (cm) - Depth 0.1 -Total Square Cm 1.12 -Photo Taken No -Epithelialization None Present -Tunneling No -Undermining/Tunneling No -Circular Undermining No -Classification - Thickness Full Thickness without Exposed Support Structure -Exudate Amt Small -Exudate Type Serosanguineous -Wound Margin Fibrotic Scar, Thickened Scar -Granulation Amt None Present (0 %) -Granulation Quality N/A -Slough/Fibrin Yes -Necrosis Amt Small (1-33%) -Necrotic Tissue Type Adherent Slough -Structure Exposed None/Limited to Skin Breakdown -Texture (Flory-wound Skin Appearance) Assessed, Scarring -Moisture (Flory-wound Skin Appearance Assessed,Dry/ ) Scaly -Color (Flory-wound Skin Appearance) No Abnormality, Assessed -Temperature (Flory-wound Skin No Abnormality Appearance) (Pt Warm) -Ulcer Cleansing Rinsed/ Irrigated with Saline -Foul Odor after Cleansing No -Anesthetic Used 4% Lidocaine Solution [Edema Assessment] -Lower Limb Edema Present No - Nurse 2 - General Ulcer CM Notes Start: 11/30/19 09:59 Freq: Status: Active Protocol: Activity Type Activity Date Activity User E-Sign Co-Sign Detail Recorded Client Recorded Date Recorded By Document 11/30/19 10:15 PL [id number] 11/30/19 10:31 PL 11/30/19 10:15 Wound Center Nurse 2 [Procedure/Treatment] #1- L LATERAL PLANTAR FOOT -Time 10:13 -Correct Patient Yes -Correct Side, Site, Position Yes -Correct Procedure Yes -Procedure Performed Yes -Type of Procedure Debridement -Clinical Debridement Subcutaneous -Post Debridement Size (cm) - Length 0.8 -Post Debridement Size (cm) - Width 1.7 -Post Debridement Size (cm) - Depth 0.2 -Total Square Cm 1.36 -Wound/Ulcer Outcome Not Healed -Ulcer Cleansing Rinsed/ Irrigated with Saline -Foul Odor after Cleansing No -Bleeding Controlled with Pressure -Treatment Response Procedure Tolerated Well [See Physician Procedure note for Specifics] Pain Scale: 0-10 Numeric [Pain] -Is Patient Pain Free? Yes Musculoskeletal: Muscle Wasting, Tenderness - Tenderness to palpate the ulcer, - - Prominent fifth metatarsal head and adjacent dorsal contracture with varus rotation of the fifth toe Neurological: - - Lack of full epicritic sensation noted Psych/Mental Status: Normal Affect, Appropriate Debridement Note Post-Debridement Measurements/Treatment WC - Nurse 2 - General Ulcer CM Notes Start: 11/30/19 09:59 Freq: Status: Active Protocol: Activity Type Activity Date Activity User E-Sign Co-Sign Detail Recorded Client Recorded Date Recorded By Document 11/30/19 10:15 PL [id number] 11/30/19 10:31 PL 11/30/19 10:15 Wound Center Nurse 2 #1- L LATERAL PLANTAR FOOT -Time 10:13 -Correct Patient Yes -Correct Side, Site, Position Yes -Correct Procedure Yes -Procedure Performed Yes -Type of Procedure Debridement -Clinical Debridement Subcutaneous -Post Debridement Size (cm) - Length 0.8 -Post Debridement Size (cm) - Width 1.7 -Post Debridement Size (cm) - Depth 0.2 -Total Square Cm 1.36 -Wound/Ulcer Outcome Not Healed -Ulcer Cleansing Rinsed/ Irrigated with Saline -Foul Odor after Cleansing No -Bleeding Controlled with Pressure -Treatment Response Procedure Tolerated Well Pain Scale: 0-10 Numeric Is Patient Pain Free? Yes Wound debrided: sub 5th metatarsal head Laterality: Left Type of Debridement: Excisional debridement Anesthesia Used: 5% Lidocaine Gel Depth: in the subcutaneous layer Percentage of wound debrided: 100 Instrument Used: #10 blade Tissue Removed: fibrous, devitalized subcutaneous, biofilm, slough Severity: Fat Layer Exposed Amount of bleeding with debridement: Mild Bleeding Controlled with: Pressure Patient tolerated procedure well Assessment/Plan Active Problems Chronic ulcer of left foot with fat layer exposed (Chronic) Colonization status (Chronic) Delayed wound healing (Chronic) Assessment: left lateral plantar foot chronic ulcer. delayed healing. h/o infection and cellulitis. Foot deformity including hammertoe tailor bunion, left Plan: This patient was evaluated and debridement was performed in an excisional subcutaneous manner as noted in the clinical panel including the peripheral callus. We discussed ongoing treatment options. It is noted this patient is not performing really any offloading. They are educated on the importance of this again today. He will likely not make progress if he continues to walk on his wound all day. He does not like his wedge offloading shoe. I offered him a cam walker boot with dual density Plastizote offloading liner pocket. He is scheduled to have this dispensed and fabricated at the foot and ankle center. The gel insole in his loafer shoe was modified today with an offloading pocket removed adjacent to the ulcer anatomic site. He understands this is not the recommended formidable offloading but will be better than not doing anything. To put weight on the heel. He relates it does not hurt when he walks on his ulcer site and thinks it is okay. I explained the biomechanics of this and how pressure will not allow the new skin to form he is to walk on this. I also recommend that he brings his steel toe boot in to see if I can potentially modify the insole in the boot. I recommend that he also tries to go nonweightbearing while at home to alleviate pressure on the site. His cultures are most recently demonstrating staph epidermidis. He was advised to complete the doxycycline course. He was reassured no local signs of infection are noted today. I do not recommend updating a culture today. If his cellulitis returns I recommend an infectious disease referral due to the recurrent and complicated healing course. I educated him on the consequences of long-term antibiotics including microbiota disruption and other side effects. Therefore do not recommend doing this on a long-term basis unless it is indicated. His x-ray reports do not indicate acute osteomyelitis or other radiographic evidence of infection. His CT scan also was negative however it is noted that osteomyelitis cannot be fully ruled out with this diagnostic imaging study of choice anyways. There is some deformity or flare that does naturally occur at the fifth metatarsal head and there is some thickening of the bone which often happens at weightbearing surfaces. A bone biopsy or simple resection of the fifth metatarsal head can be performed which is the gold standard confirming osteomyelitis and alleviating his foot deformity. He previously did not want to proceed forward with surgical intervention. He still is now on to proceed forward at this time because he states he will not be able to stay off of his foot. He is concerned about losing his job. Regardless this is not medically recommended. I am optimistic that we can proceed by improving compliance with some of the other basic wound care plan recommendations. Is okay to transition into antimicrobial Dial soap and water wash the CV Cary-Hex. The plain film x-ray imaging studies on CD are requested from the other facility that he is performed. I would like to review these prior to moving forward with any invasive procedures also. He relates he had noninvasive vascular arterial studies performed approximately in February of last year at an outside facility and he had normal perfusion. He did also palpable pulses. Regardless his wound has been open for potentially over 1 year I would like to review the studies to look for any evidence of calcification or small vessel disease which may be contributing to his delayed healing. These of been requested and not received. If we are unable to receive these in a timely manner such as next week I recommend simply repeating them at [facility]. Will continue Aquacel Ag and gauze for moderate/heavy drainage daily and will have him offload his foot as much as possible. . He is unable to follow-up on Wednesdays on a regular basis because he keeps having to call off work. He would like to resume Thursday visits. I will review the case with Dr. Plummer. I am available to follow with him if he is available on Wednesdays or ready to proceed with surgical intervention. . 2019 MELANIE patino. Reviewed today: Medications and allergies documented and reconciled. Reviewed 11-16-2019 he has an above normal body mass index of 29.6. He was advised on diet and activity to optimize health. It is also noted his blood pressure is documented at an elevated level of 163/94. To follow-up with primary care physician. He is a current tobacco nonuser. He denies falling within the past year.
--- NOTE | 2019-12-01 09:22 | WC ---
3rd record request was faxed to [facility]. I had spoken to someone in the medical records department and they had stated that they show no record of receiving the prior 2 requests. I informed them that would fax another request immediately and to please watch for it. Request sent and acknowledgement of delivery received.
[2019-12-09 10:21] VITALS: BP 167/84; PULSE 68; RESP 18; TEMP 36.5; BMI 29.5
--- NOTE | 2019-12-09 15:49 | PCM.WC.PN ---
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 Status: Chronic Current Visit: Yes Code(s): L97.522 - Non-pressure chronic ulcer of other part of left foot with fat layer exposed (3) Chronic ulcer of left foot with fat layer exposed Status: Chronic Current Visit: Yes Code(s): L97.522 - Non-pressure chronic ulcer of other part of left foot with fat layer exposed (4) Delayed wound healing Status: Chronic Current Visit: Yes Code(s): T14.8XXD - Other injury of unspecified body region, subsequent encounter Type of Wound Date of Service: 12/09/19 Chief Complaint: nonhealing wound left plantar foot History of Wound: Jose J is a 64 y/o gentleman that presents to the wound healing center for evaluation and treatment of a wound to his left plantar foot s/p I and D previously by his PCP, Dr. Giordano. He had a wound to this same area in February 2019 and was seen at [facility] and treated there for 9 weeks with Aquacel and was placed in a wedge shoe to offload his foot. He has undergone vascular testing that he reports was normal and had xrays which did not show osteomyelitis. 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 He and his did not want to do surgery. His wound closed and he was discharged from the facility at the end of March. He began developing pain prior to wound care center referral with swelling and went to see his primary care doctor in the recent setting who performed an I and D and had him do xrays to r/o osteomyelitis and performed a wound culture. He denies fever or chills or nausea but did have these last weekend before he was started on antibiotics. Recently he is growing out staph epidermidis and his responded well to doxycycline. His doxycycline course is scheduled to and within the next couple of days. His is concerned that his infection will come back when he completes antibiotics and asked if he can be kept on it indefinitely. He recently had a CT scan of his foot also and these results were previously reviewed. He keeps walking on his foot in a steel toe boot 4 days a week and now refuses to wear his offloading wedge shoe because it makes him feel like he is falling. He is scheduled to get an offloading CAM Walker boot at the foot and ankle center but did not do this yet. He brought his shoe with gel sole liner today and is amendable to have a pocket cut out. He denies claudication with walking. He had vascular studies performed last February at an outside facility and these have been requested but not received yet. He denies fever, chill, nausea, vomiting, redness or odor. Progress of Wound: Jose J is here for follow up of the chronic ulcer of his left plantar foot. There has been worsening since his last visit. His reports that once he completed the doxycycline, his ulcer worsened. There was increased drainage, and pain. - Physical Exam Vital Signs Temp Pulse Resp BP 97.7 F L 68 18 167/84 H 12/09/19 10:21 12/09/19 10:21 12/09/19 10:21 12/09/19 10:21 General: Alert, Oriented x3, Cooperative, No apparent distress HEENT: Atraumatic, Normocephalic Oral: Moist Mucosa Extremities: No edema Skin: Ulcer/ Wound Wound Measurements and Assessment WC - Nurse 1 - General Ulcer Measurement Start: 11/30/19 09:59 Freq: Status: Active Protocol: Activity Type Activity Date Activity User E-Sign Co-Sign Detail Recorded Client Recorded Date Recorded By Document 12/09/19 10:21 [id number] 12/09/19 10:24 RB 12/09/19 10:21 Wound Center Nurse 1 [Ulcer Assessment] #1- L LATERAL PLANTAR FOOT -Combined with other wound No -Current Size (cm) - Length 0.5 -Current Size (cm) - Width 0.8 -Current Size (cm) - Depth 0.3 -Total Square Cm 0.40 -Tunneling No -Undermining/Tunneling No -Circular Undermining No -Exudate Amt Small -Exudate Type Serosanguineous -Wound Margin Thickened -Granulation Amt Medium (34-66%) -Granulation Quality [place] -Slough/Fibrin Yes -Necrosis Amt Small (1-33%) -Necrotic Tissue Type Adherent Slough -Structure Exposed N/A -Texture (Flory-wound Skin Appearance) Assessed,Callus -Moisture (Flory-wound Skin Appearance Assessed ) -Color (Flory-wound Skin Appearance) Assessed -Temperature (Flory-wound Skin No Abnormality Appearance) (Pt Warm) -Tenderness on Palpation (Flory-wound No Skin Appearance) -Ulcer Cleansing Wound Cleanser -Foul Odor after Cleansing No -Anesthetic Used 4% Lidocaine Solution - Nurse 2 - General Ulcer CM Notes Start: 11/30/19 09:59 Freq: Status: Active Protocol: Activity Type Activity Date Activity User E-Sign Co-Sign Detail Recorded Client Recorded Date Recorded By Document 12/09/19 10:52 DV [id number] 12/09/19 11:04 DV 12/09/19 10:52 Wound Center Nurse 2 [Procedure/Treatment] -Time 10:53 -Correct Patient Yes -Correct Side, Site, Position Yes -Correct Procedure Yes -Procedure Performed Yes -Type of Procedure Debridement -Clinical Debridement Subcutaneous -Post Debridement Size (cm) - Length 1.0 -Post Debridement Size (cm) - Width 1.9 -Post Debridement Size (cm) - Depth 0.3 -Total Square Cm 1.90 -Wound/Ulcer Outcome Not Healed -Ulcer Cleansing Rinsed/ Irrigated with Saline -Foul Odor after Cleansing No -Bioengineered Tissue No -Bleeding Controlled with Pressure -Offloading No -Treatment Response Procedure Tolerated Well [See Physician Procedure note for Specifics] Pain Scale: 0-10 Numeric [Pain] -Is Patient Pain Free? No Psych/Mental Status: Normal Affect, Appropriate Debridement Note Post-Debridement Measurements/Treatment - Nurse 2 - General Ulcer CM Notes Start: 11/30/19 09:59 Freq: Status: Active Protocol: Activity Type Activity Date Activity User E-Sign Co-Sign Detail Recorded Client Recorded Date Recorded By Document 11/30/19 10:15 PL [id number] 11/30/19 10:31 Document 12/09/19 10:52 DV [id number] 12/09/19 11:04 DV 11/30/19 12/09/19 10:15 10:52 Wound Center Nurse 2 #1- L LATERAL PLANTAR FOOT -Time 10:13 10:53 -Correct Patient Yes Yes -Correct Side, Site, Position Yes Yes -Correct Procedure Yes Yes -Procedure Performed Yes Yes -Type of Procedure Debridement Debridement -Clinical Debridement Subcutaneous Subcutaneous -Post Debridement Size (cm) - Length 0.8 1.0 -Post Debridement Size (cm) - Width 1.7 1.9 -Post Debridement Size (cm) - Depth 0.2 0.3 -Total Square Cm 1.36 1.90 -Wound/Ulcer Outcome Not Healed Not Healed -Ulcer Cleansing Rinsed/ Rinsed/ Irrigated with Irrigated with Saline Saline -Foul Odor after Cleansing No No -Bioengineered Tissue No -Bleeding Controlled with Pressure Pressure -Offloading No -Treatment Response Procedure Procedure Tolerated Well Tolerated Well Pain Scale: 0-10 Numeric Is Patient Pain Free? 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 delayed healing. h/o infection and cellulitis. Foot deformity including hammertoe tailor bunion, left Plan: This patient was evaluated and debridement was performed in an excisional subcutaneous manner. A wound culture was performed today and he was restarted on doxycycline. His x-ray reports do not indicate acute osteomyelitis or other radiographic evidence of infection. His CT scan also was negative however it is noted that osteomyelitis cannot be fully ruled out with this diagnostic imaging study of choice. Will continue Aquacel Ag and gauze for moderate/heavy drainage daily and will have him offload his foot as much as possible. F/u in 1 week[address] He has seen Dr. Camargo in consultation and treatment options below were discussed. It is noted this patient is not performing really any offloading. They are educated on the importance of this again today. He will likely not make progress if he continues to walk on his wound all day. He does not like his wedge offloading shoe. I offered him a cam walker boot with dual density Plastizote offloading liner pocket. He is scheduled to have this dispensed and fabricated at the foot and ankle center. The gel insole in his loafer shoe was modified today with an offloading pocket removed adjacent to the ulcer anatomic site. He understands this is not the recommended formidable offloading but will be better than not doing anything. He was advised to go nonweightbearing at home to alleviate pressure on the site. due to the recurrent and complicated healing course. A bone biopsy or simple resection of the fifth metatarsal head can be performed which is the gold standard confirming osteomyelitis and alleviating his foot deformity. He previously did not want to proceed forward with surgical intervention. He still is now hesitant to proceed forward at this time because he states he will not be able to stay off of his foot. He is concerned about losing his job. He relates he had noninvasive vascular arterial studies performed approximately in February of last year at an outside facility and he had normal perfusion. He did also palpable pulses. Regardless his wound has been open for potentially over 1 year.
[2019-12-09 16:46] LABS: M R Staph aureus DNA By PCR Negative (Negative); Probe Check PASS; Specimen Processing Control PASS; Staph aureus DNA By PCR NEGATIVE (Negative)
[2019-12-16 10:21] VITALS: BP 169/90; PULSE 71; RESP 20; TEMP 36.2; BMI 29.5
--- NOTE | 2019-12-16 16:19 | PN.PCM_ITS ---
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 Status: Chronic Current Visit: Yes Code(s): L97.522 - Non-pressure chronic ulcer of other part of left foot with fat layer exposed (3) Chronic ulcer of left foot with fat layer exposed Status: Chronic Current Visit: Yes Code(s): L97.522 - Non-pressure chronic ulcer of other part of left foot with fat layer exposed (4) Delayed wound healing Status: Chronic Current Visit: Yes Code(s): T14.8XXD - Other injury of unspecified body region, subsequent encounter Type of Wound Date of Service: 12/16/19 Chief Complaint: nonhealing wound left plantar foot History of Wound: Jose J is a 64 y/o gentleman that presents to the wound healing center for evaluation and treatment of a wound to his left plantar foot s/p I and D previously by his PCP, Dr. Giordano. He had a wound to this same area in February 2019 and was seen at [facility] and treated there for 9 weeks with Aquacel and was placed in a wedge shoe to offload his foot. He has undergone vascular testing that he reports was normal and had xrays which did not show osteomyelitis. 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 He and his did not want to do surgery. His wound closed and he was discharged from the facility at the end of March. He began developing pain prior to wound care center referral with swelling and went to see his primary care doctor in the recent setting who performed an I and D and had him do xrays to r/o osteomyelitis and performed a wound culture. He denies fever or chills or nausea but did have these last weekend before he was started on antibiotics. Recently he is growing out staph epidermidis and his responded well to doxycycline. His doxycycline course is scheduled to and within the next couple of days. His is concerned that his infection will come back when he completes antibiotics and asked if he can be kept on it indefinitely. He recently had a CT scan of his foot also and these results were previously reviewed. He keeps walking on his foot in a steel toe boot 4 days a week and now refuses to wear his offloading wedge shoe because it makes him feel like he is falling. He is scheduled to get an offloading CAM Walker boot at the foot and ankle center but did not do this yet. He brought his shoe with gel sole liner today and is amendable to have a pocket cut out. He denies claudication with walking. He had vascular studies performed last February at an outside facility and these have been requested but not received yet. He denies fever, chill, nausea, vomiting, redness or odor. Progress of Wound: Jose J is here for follow up of the chronic ulcer of his left plantar foot. There has been improvement since his last visit. - Physical Exam Vital Signs Temp Pulse Resp BP 97.2 F L 71 20 H 169/90 H 12/16/19 10:21 12/16/19 10:21 12/16/19 10:21 12/16/19 10:21 General: Alert, Oriented x3, Cooperative, No apparent distress HEENT: Atraumatic, Normocephalic Oral: Moist Mucosa Abdomen: Obese Extremities: No edema Skin: Ulcer/ Wound Wound Measurements and Assessment WC - Nurse 1 - General Ulcer Measurement Start: 11/30/19 09:59 Freq: Status: Active Protocol: Activity Type Activity Date Activity User E-Sign Co-Sign Detail Recorded Client Recorded Date Recorded By Document 12/16/19 10:21 [id number] 12/16/19 10:26 DL 12/16/19 10:21 Wound Center Nurse 1 [Ulcer Assessment] #1- L LATERAL PLANTAR FOOT -Current Size (cm) - Length 0.6 -Current Size (cm) - Width 1.1 -Current Size (cm) - Depth 0.2 -Total Square Cm 0.66 -Photo Taken No -Exudate Amt Small -Exudate Type Serosanguineous -Wound Margin Distinct, Outline Attached -Granulation Amt Large (67-100%) -Granulation Quality [place] -Necrosis Amt Small (1-33%) -Necrotic Tissue Type Adherent Slough -Structure Exposed N/A -Texture (Flory-wound Skin Appearance) Callus,Scarring -Moisture (Flory-wound Skin Appearance No Abnormality ) -Color (Flory-wound Skin Appearance) No Abnormality -Temperature (Flory-wound Skin No Abnormality Appearance) (Pt Warm) -Tenderness on Palpation (Flory-wound No Skin Appearance) -Ulcer Cleansing Rinsed/ Irrigated with Saline -Foul Odor after Cleansing No -Anesthetic Used 4% Lidocaine Solution - Nurse 2 - General Ulcer CM Notes Start: 11/30/19 09:59 Freq: Status: Active Protocol: Activity Type Activity Date Activity User E-Sign Co-Sign Detail Recorded Client Recorded Date Recorded By Document 12/16/19 11:08 DV [id number] 12/16/19 11:10 DV Document 12/16/19 11:14 DV [id number] 12/16/19 11:16 DV 12/16/19 12/16/19 11:08 11:14 Wound Center Nurse 2 [Procedure/Treatment] #1- L LATERAL PLANTAR FOOT -Time 11:09 11:14 -Correct Patient Yes Yes -Correct Side, Site, Position Yes Yes -Correct Procedure Yes Yes -Procedure Performed Yes Yes -Type of Procedure Debridement Debridement -Clinical Debridement Subcutaneous Subcutaneous -Post Debridement Size (cm) - Length 0.8 0.8 -Post Debridement Size (cm) - Width 1.0 1.0 -Post Debridement Size (cm) - Depth 0.2 0.2 -Total Square (cm) 0.80 0.80 -Wound/Ulcer Outcome Not Healed Not Healed -Ulcer Cleansing Rinsed/ Rinsed/ Irrigated with Irrigated with Saline Saline -Foul Odor after Cleansing No No -Bioengineered Tissue No No -Bleeding Controlled with Pressure Pressure -Offloading No No -Treatment Response Procedure Procedure Tolerated Well Tolerated Well [See Physician Procedure note for Specifics] Pain Scale: 0-10 Numeric [Pain] -Is Patient Pain Free? Yes Yes Psych/Mental Status: Normal Affect, Appropriate Debridement Note Post-Debridement Measurements/Treatment WC - Nurse 2 - General Ulcer CM Notes Start: 11/30/19 09:59 Freq: Status: Active Protocol: Activity Type Activity Date Activity User E-Sign Co-Sign Detail Recorded Client Recorded Date Recorded By Document 11/30/19 10:15 PL [id number] 11/30/19 10:31 PL Document 12/09/19 10:52 DV [id number] 12/09/19 11:04 DV Document 12/16/19 11:08 DV [id number] 12/16/19 11:10 DV Document 12/16/19 11:14 DV [id number] 12/16/19 11:16 DV 11/30/19 12/09/19 12/16/19 10:15 10:52 11:08 Wound Center Nurse 2 #1- L LATERAL PLANTAR FOOT -Time 10:13 10:53 11:09 -Correct Patient Yes Yes Yes -Correct Side, Site, Position Yes Yes Yes -Correct Procedure Yes Yes Yes -Procedure Performed Yes Yes Yes -Type of Procedure Debridement Debridement Debridement -Clinical Debridement Subcutaneous Subcutaneous Subcutaneous -Post Debridement Size (cm) - Length 0.8 1.0 0.8 -Post Debridement Size (cm) - Width 1.7 1.9 1.0 -Post Debridement Size (cm) - Depth 0.2 0.3 0.2 -Total Square (cm) 1.36 1.90 0.80 -Wound/Ulcer Outcome Not Healed Not Healed Not Healed -Ulcer Cleansing Rinsed/ Rinsed/ Rinsed/ Irrigated with Irrigated with Irrigated with Saline Saline Saline -Foul Odor after Cleansing No No No -Bioengineered Tissue No No -Bleeding Controlled with Pressure Pressure Pressure -Offloading No No -Treatment Response Procedure Procedure Procedure Tolerated Well Tolerated Well Tolerated Well Pain Scale: 0-10 Numeric Is Patient Pain Free? Yes No Yes 12/16/19 11:14 Wound Center Nurse 2 #1- L LATERAL PLANTAR FOOT -Time 11:14 -Correct Patient Yes -Correct Side, Site, Position Yes -Correct Procedure Yes -Procedure Performed Yes -Type of Procedure Debridement -Clinical Debridement Subcutaneous -Post Debridement Size (cm) - Length 0.8 -Post Debridement Size (cm) - Width 1.0 -Post Debridement Size (cm) - Depth 0.2 -Total Square (cm) 0.80 -Wound/Ulcer Outcome Not Healed -Ulcer Cleansing Rinsed/ Irrigated with Saline -Foul Odor after Cleansing No -Bioengineered Tissue No -Bleeding Controlled with Pressure -Offloading No -Treatment Response Procedure Tolerated Well Pain Scale: 0-10 Numeric Is Patient Pain Free? Yes Wound debrided: left lateral plantar foot Laterality: Left Type of Debridement: Excisional debridement Anesthesia Used: 4% Lidocaine Solution Depth: Down to and including healthy tissue, in the subcutaneous layer Percentage of wound debrided: 100 Instrument Used: 5mm curette Tissue Removed: yellow slough, devitalized tissue Severity: Fat Layer Exposed Amount of bleeding with debridement: Mild Bleeding Controlled with: Compression and gauze Patient tolerated procedure well Assessment/Plan Active Problems HTN (hypertension) (Chronic) Non-healing ulcer of left foot with fat layer exposed (Chronic) Chronic ulcer of left foot with fat layer exposed (Chronic) Colonization status (Chronic) Delayed wound healing (Chronic) Assessment: left lateral plantar foot chronic ulcer. delayed healing. h/o infection and cellulitis. Foot deformity including hammertoe tailor bunion, left Plan: This patient was evaluated and debridement was performed in an excisional subcutaneous manner. He will continue on doxycycline. His x-ray reports do not indicate acute osteomyelitis or other radiographic evidence of infection. His CT scan also was negative however it is noted that osteomyelitis cannot be fully ruled out with this diagnostic imaging study of choice. Will continue Aquacel Ag and gauze for moderate/heavy drainage daily and will have him offload his foot as much as possible. F/u in 2 weeks[address] He has seen Dr. Camargo in consultation and treatment options below were discussed. It is noted this patient is not performing really any offloading. They are educated on the importance of this again today. He will likely not make progress if he continues to walk on his wound all day. He does not like his wedge offloading shoe. I offered him a cam walker boot with dual density Plastizote offloading liner pocket. He is scheduled to have this dispensed and fabricated at the foot and ankle center. The gel insole in his loafer shoe was modified today with an offloading pocket removed adjacent to the ulcer anatomic site. He understands this is not the recommended formidable offloading but will be better than not doing anything. He was advised to go nonweightbearing at home to alleviate pressure on the site. due to the recurrent and complicated healing course. A bone biopsy or simple resection of the fifth metatarsal head can be performed which is the gold standard confirming osteomyelitis and alleviating his foot deformity. He previously did not want to proceed forward with surgical intervention. He still is now hesitant to proceed forward at this time because he states he will not be able to stay off of his foot. He is concerned about losing his job. He relates he had noninvasive vascular arterial studies performed approximately in February of last year at an outside facility and he had normal perfusion. He did also palpable pulses. Regardless his wound has been open for potentially over 1 year.
== END 2019-12-23 23:59 ==
LOC: WC 10:30
PROVIDERS: PCP Family Medicine; Referring Provider Family Medicine; Visit Provider Family Medicine
DX: L97.522 Non-pressure chronic ulcer of other part of left foot with fat layer exposed (principal); M21.612 Bunion of left foot; I10 Essential (primary) hypertension
CPT/HCPCS: 11042; 87070; 87075; 87077; 87186; 87205; 87640

== ENCOUNTER 2020-01-20 10:15 | Outpatient (RCR) | payer BC, SELFPAY ==
[2019-12-24 00:26] VITALS: BP 169/90; PULSE 71; RESP 20; TEMP 36.2
[2020-01-06 10:34] VITALS: BP 151/77; PULSE 76; RESP 18; TEMP 37.1; BMI 29.5
--- NOTE | 2020-01-07 14:02 | PCM.WC.PN ---
Type of Wound Date of Service: 01/06/20 Chief Complaint: nonhealing wound left plantar foot History of Wound: Jose J is a 64 y/o gentleman that presents to the wound healing center for evaluation and treatment of a wound to his left plantar foot s/p I and D previously by his PCP, Dr. Giordano. He had a wound to this same area in February 2019 and was seen at [facility] and treated there for 9 weeks with Aquacel and was placed in a wedge shoe to offload his foot. He has undergone vascular testing that he reports was normal and had xrays which did not show osteomyelitis. 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 He and his did not want to do surgery. His wound closed and he was discharged from the facility at the end of March. He began developing pain prior to wound care center referral with swelling and went to see his primary care doctor in the recent setting who performed an I and D and had him do xrays to r/o osteomyelitis and performed a wound culture. He denies fever or chills or nausea but did have these last weekend before he was started on antibiotics. Recently he is growing out staph epidermidis and his responded well to doxycycline. His doxycycline course is scheduled to and within the next couple of days. His is concerned that his infection will come back when he completes antibiotics and asked if he can be kept on it indefinitely. He recently had a CT scan of his foot also and these results were previously reviewed. He keeps walking on his foot in a steel toe boot 4 days a week and now refuses to wear his offloading wedge shoe because it makes him feel like he is falling. He is scheduled to get an offloading CAM Walker boot at the foot and ankle center but did not do this yet. He brought his shoe with gel sole liner today and is amendable to have a pocket cut out. He denies claudication with walking. He had vascular studies performed last February at an outside facility and these have been requested but not received yet. He denies fever, chill, nausea, vomiting, redness or odor. Progress of Wound: Jose J is here for follow up of a chronic ulcer of his left plantar foot. There has been mild improvement since his last visit. He has not followed through with offloading measures discussed by Dr. Camargo. he denies any worsening drainage or pain or erythema. - Physical Exam Vital Signs Temp Pulse Resp BP 98.7 F 76 18 151/77 H 01/06/20 10:34 01/06/20 10:34 01/06/20 10:34 01/06/20 10:34 General: Alert, Oriented x3, Cooperative, No apparent distress HEENT: Atraumatic, Normocephalic Oral: Moist Mucosa Abdomen: Obese Extremities: No edema Skin: Ulcer/ Wound Wound Measurements and Assessment WC - Nurse 1 - General Ulcer Measurement Start: 01/06/20 10:34 Freq: Status: Active Protocol: Activity Type Activity Date Activity User E-Sign Co-Sign Detail Recorded Client Recorded Date Recorded By Document 01/06/20 10:34 RB [id number] 01/06/20 10:42 RB 01/06/20 10:34 Wound Center Nurse 1 [Ulcer Assessment] #1- L LATERAL PLANTAR FOOT -Combined with other wound No -Current Size (cm) - Length 0.5 -Current Size (cm) - Width 1.1 -Current Size (cm) - Depth 0.2 -Total Square Cm 0.55 -Tunneling No -Undermining/Tunneling No -Circular Undermining No -Exudate Amt Small -Exudate Type Serosanguineous -Wound Margin Thickened -Granulation Amt Medium (34-66%) -Granulation Quality [place] -Slough/Fibrin Yes -Necrosis Amt Small (1-33%) -Necrotic Tissue Type Adherent Slough -Structure Exposed N/A -Texture (Flory-wound Skin Appearance) Assessed,Callus -Moisture (Flory-wound Skin Appearance Assessed ) -Color (Flory-wound Skin Appearance) Assessed -Temperature (Flory-wound Skin No Abnormality Appearance) (Pt Warm) -Tenderness on Palpation (Flory-wound No Skin Appearance) -Ulcer Cleansing Wound Cleanser -Foul Odor after Cleansing No -Anesthetic Used 4% Lidocaine Solution WC - Nurse 2 - General Ulcer CM Notes Start: 01/06/20 10:34 Freq: Status: Active Protocol: Activity Type Activity Date Activity User E-Sign Co-Sign Detail Recorded Client Recorded Date Recorded By Document 01/06/20 11:31 MW [id number] 01/06/20 11:45 MW 01/06/20 11:31 Wound Center Nurse 2 [Procedure/Treatment] -Time 11:33 -Correct Patient Yes -Correct Side, Site, Position Yes -Correct Procedure Yes -Procedure Performed Yes -Type of Procedure Debridement -Clinical Debridement Subcutaneous -Post Debridement Size (cm) - Length 0.5 -Post Debridement Size (cm) - Width 0.6 -Post Debridement Size (cm) - Depth 0.2 -Total Square (cm) 0.30 -Wound/Ulcer Outcome Not Healed -Ulcer Cleansing Rinsed/ Irrigated with Saline -Foul Odor after Cleansing No -Bioengineered Tissue No -Bleeding Controlled with Pressure -Offloading No -Treatment Response Procedure Tolerated Well [See Physician Procedure note for Specifics] Pain Scale: 0-10 Numeric [Pain] -Is Patient Pain Free? Yes Psych/Mental Status: Normal Affect, Appropriate Debridement Note Post-Debridement Measurements/Treatment WC - Nurse 2 - General Ulcer CM Notes Start: 01/06/20 10:34 Freq: Status: Active Protocol: Activity Type Activity Date Activity User E-Sign Co-Sign Detail Recorded Client Recorded Date Recorded By Document 01/06/20 11:31 MW [id number] 01/06/20 11:45 MW 01/06/20 11:31 Wound Center Nurse 2 #1- L LATERAL PLANTAR FOOT -Time 11:33 -Correct Patient Yes -Correct Side, Site, Position Yes -Correct Procedure Yes -Procedure Performed Yes -Type of Procedure Debridement -Clinical Debridement Subcutaneous -Post Debridement Size (cm) - Length 0.5 -Post Debridement Size (cm) - Width 0.6 -Post Debridement Size (cm) - Depth 0.2 -Total Square (cm) 0.30 -Wound/Ulcer Outcome Not Healed -Ulcer Cleansing Rinsed/ Irrigated with Saline -Foul Odor after Cleansing No -Bioengineered Tissue No -Bleeding Controlled with Pressure -Offloading No -Treatment Response Procedure Tolerated Well Pain Scale: 0-10 Numeric Is Patient Pain Free? Yes Wound debrided: left lateral plantar foot Laterality: Left Type of Debridement: Excisional debridement Anesthesia Used: 4% Lidocaine Solution Depth: Down to and including healthy tissue, in the subcutaneous layer Percentage of wound debrided: 100 Instrument Used: #15 blade, Forceps Tissue Removed: yellow slough, devitalized tissue Severity: Fat Layer Exposed Amount of bleeding with debridement: Mild Bleeding Controlled with: Compression and gauze Patient tolerated procedure well Assessment/Plan Assessment: left lateral plantar foot chronic ulcer. delayed healing. h/o infection and cellulitis. Foot deformity including hammertoe tailor bunion, left Plan: This patient was evaluated and debridement was performed in an excisional subcutaneous manner. He will continue on doxycycline. His x-ray reports do not indicate acute osteomyelitis or other radiographic evidence of infection. His CT scan also was negative however it is noted that osteomyelitis cannot be fully ruled out with this diagnostic imaging study of choice. Will try Hydrofera Blue and gauze for moderate/heavy drainage daily and will have him offload his foot as much as possible. F/u in 1 [address] has [address] Camargo in consultation and treatment options below were discussed. It is noted this patient is not performing really any offloading. They are educated on the importance of this again today. He will likely not make progress if he continues to walk on his wound all day. He does not like his wedge offloading shoe. I offered him a cam walker boot with dual density Plastizote offloading liner pocket. He is scheduled to have this dispensed and fabricated at the foot and ankle center. The gel insole in his loafer shoe was modified today with an offloading pocket removed adjacent to the ulcer anatomic site. He understands this is not the recommended formidable offloading but will be better than not doing anything. He was advised to go nonweightbearing at home to alleviate pressure on the site. due to the recurrent and complicated healing course. A bone biopsy or simple resection of the fifth metatarsal head can be performed which is the gold standard confirming osteomyelitis and alleviating his foot deformity. He previously did not want to proceed forward with surgical intervention. He still is now hesitant to proceed forward at this time because he states he will not be able to stay off of his foot. He is concerned about losing his job. He relates he had noninvasive vascular arterial studies performed approximately in February of last year at an outside facility and he had normal perfusion. He did also palpable pulses. Regardless his wound has been open for potentially over 1 year.
[2020-01-13 10:11] VITALS: BP 145/79; PULSE 79; RESP 22; TEMP 36.8; BMI 29.5
--- NOTE | 2020-01-13 14:24 | PCM.WC.PN ---
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 Status: Chronic Current Visit: Yes Code(s): L97.522 - Non-pressure chronic ulcer of other part of left foot with fat layer exposed (2) Chronic ulcer of left foot with fat layer exposed Status: Chronic Current Visit: Yes Code(s): L97.522 - Non-pressure chronic ulcer of other part of left foot with fat layer exposed (3) Delayed wound healing Status: Chronic Current Visit: Yes Code(s): T14.8XXD - Other injury of unspecified body region, subsequent encounter Type of Wound Date of Service: 01/13/20 Chief Complaint: nonhealing wound left plantar foot History of Wound: Jose J is a 64 y/o gentleman that presents to the wound healing center for evaluation and treatment of a wound to his left plantar foot s/p I and D previously by his PCP, Dr. Giordano. He had a wound to this same area in February 2019 and was seen at [facility] and treated there for 9 weeks with Aquacel and was placed in a wedge shoe to offload his foot. He has undergone vascular testing that he reports was normal and had xrays which did not show osteomyelitis. 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 He and his did not want to do surgery. His wound closed and he was discharged from the facility at the end of March. He began developing pain prior to wound care center referral with swelling and went to see his primary care doctor in the recent setting who performed an I and D and had him do xrays to r/o osteomyelitis and performed a wound culture. He denies fever or chills or nausea but did have these last weekend before he was started on antibiotics. Recently he is growing out staph epidermidis and his responded well to doxycycline. His doxycycline course is scheduled to and within the next couple of days. His is concerned that his infection will come back when he completes antibiotics and asked if he can be kept on it indefinitely. He recently had a CT scan of his foot also and these results were previously reviewed. He keeps walking on his foot in a steel toe boot 4 days a week and now refuses to wear his offloading wedge shoe because it makes him feel like he is falling. He is scheduled to get an offloading CAM Walker boot at the foot and ankle center but did not do this yet. He brought his shoe with gel sole liner today and is amendable to have a pocket cut out. He denies claudication with walking. He had vascular studies performed last February at an outside facility and these have been requested but not received yet. He denies fever, chill, nausea, vomiting, redness or odor. Progress of Wound: Jose J is here for follow up of a chronic ulcer of his left plantar foot. There has been no improvement since his last visit. He has not followed through with offloading measures discussed by Dr. Camargo. He denies any worsening drainage or pain or erythema. - Physical Exam Vital Signs Temp Pulse Resp BP 98.3 F 79 22 H 145/79 H 01/13/20 10:11 01/13/20 10:11 01/13/20 10:11 01/13/20 10:11 General: Alert, Oriented x3, Cooperative, No apparent distress HEENT: Atraumatic, Normocephalic Oral: Moist Mucosa Abdomen: Obese Extremities: Edema Skin: Ulcer/ Wound Wound Measurements and Assessment WC - Nurse 1 - General Ulcer Measurement Start: 01/06/20 10:34 Freq: Status: Active Protocol: Activity Type Activity Date Activity User E-Sign Co-Sign Detail Recorded Client Recorded Date Recorded By Document 01/13/20 10:11 DL [id number] 01/13/20 10:21 DL 01/13/20 10:11 Wound Center Nurse 1 [Ulcer Assessment] #1- L LATERAL PLANTAR FOOT -Current Size (cm) - Length 0.8 -Current Size (cm) - Width 0.7 -Current Size (cm) - Depth 0.3 -Total Square Cm 0.56 -Photo Taken No -Undermining/Tunneling Starts (O' 6 clock) -Undermining/Tunneling Ends (O'clock) 9 -Maximum Distance (cm) 0.5 -Exudate Amt Small -Exudate Type Serosanguineous -Wound Margin Distinct, Outline Attached -Granulation Amt Large (67-100%) -Granulation Quality Red -Necrosis Amt Small (1-33%) -Necrotic Tissue Type Adherent Slough -Structure Exposed N/A -Texture (Flory-wound Skin Appearance) Callus,Scarring -Moisture (Flory-wound Skin Appearance Mac[place] ) -Color (Flory-wound Skin Appearance) Rubor -Temperature (Flory-wound Skin No Abnormality Appearance) (Pt Warm) -Tenderness on Palpation (Flory-wound No Skin Appearance) -Ulcer Cleansing Wound Cleanser -Foul Odor after Cleansing No -Anesthetic Used 4% Lidocaine Solution QUOC - Nurse 2 - General Ulcer CM Notes Start: 01/10/20 20:19 Freq: Status: Active Protocol: Activity Type Activity Date Activity User E-Sign Co-Sign Detail Recorded Client Recorded Date Recorded By Document 01/13/20 10:40 MW [id number] 01/13/20 10:51 MW 01/13/20 10:40 Wound Center Nurse 2 [Procedure/Treatment] -Time 10:40 -Correct Patient Yes -Correct Side, Site, Position Yes -Correct Procedure Yes -Clinical Debridement Subcutaneous -Tissue Removed Subcutaneous -Post Debridement (cm) - Length 1.0 -Post Debridement (cm) - Width 1.4 -Post Debridement (cm) - Depth 0.2 -Total Square (Post) (cm) 1.40 -Area of Debridement (cm) - Length 1.0 -Area of Debridement (cm) - Width 1.4 -Total Square (Area) (cm) 1.40 -Tunneling No -Undermining/Tunneling No -Circular Undermining No -Wound/Ulcer Outcome Not Healed -Ulcer Cleansing Rinsed/ Irrigated with Saline -Foul Odor after Cleansing No -Bioengineered Tissue No -Bleeding Controlled with Pressure -Offloading No -Debridement - Subq, 1st 20sq cm Yes [See Physician Procedure note for Specifics] Pain Scale: 0-10 Numeric [Pain] -Is Patient Pain Free? Yes QUOC - Nurse 3 - General Ulcer D/C NN Start: 01/10/20 20:19 Freq: Status: Active Protocol: Activity Type Activity Date Activity User E-Sign Co-Sign Detail Recorded Client Recorded Date Recorded By Document 01/13/20 11:03 DL [id number] 01/13/20 11:05 DL 01/13/20 11:03 Wound Care Nurse 3 [Wound Dressing] #1- L LATERAL PLANTAR FOOT -Ulcer Cleansing Rinsed/ Irrigated with Saline -Foul Odor after Cleansing No -Primary Dressing Applied Aquacel AG 2x2 -Primary Dressing Covered/Secured Dry Gauze & with Roll Gauze, Secured with Tape -Aquacel AG 2x2 1 [Post Procedure Tolerated] -Treatment Response Procedure Tolerated Well Pain Scale: 0-10 Numeric [Pain] -Is Patient Pain Free? Yes - Visit Discharge [Visit Discharge Information] -Discharge Condition Stable -Ambulatory Status Ambulatory -Transportation Private Auto -Notes: Script for ATB given and work excuse. Psych/Mental Status: Normal Affect, Appropriate Debridement Note Post-Debridement Measurements/Treatment - Nurse 2 - General Ulcer CM Notes Start: 01/10/20 20:19 Freq: Status: Active Protocol: Activity Type Activity Date Activity User E-Sign Co-Sign Detail Recorded Client Recorded Date Recorded By Document 01/13/20 10:40 MW [id number] 01/13/20 10:51 MW 01/13/20 10:40 Wound Center Nurse 2 #1- L LATERAL PLANTAR FOOT -Time 10:40 -Correct Patient Yes -Correct Side, Site, Position Yes -Correct Procedure Yes -Clinical Debridement Subcutaneous -Tissue Removed Subcutaneous -Post Debridement (cm) - Length 1.0 -Post Debridement (cm) - Width 1.4 -Post Debridement (cm) - Depth 0.2 -Total Square (Post) (cm) 1.40 -Area of Debridement (cm) - Length 1.0 -Area of Debridement (cm) - Width 1.4 -Total Square (Area) (cm) 1.40 -Tunneling No -Undermining/Tunneling No -Circular Undermining No -Wound/Ulcer Outcome Not Healed -Ulcer Cleansing Rinsed/ Irrigated with Saline -Foul Odor after Cleansing No -Bioengineered Tissue No -Bleeding Controlled with Pressure -Offloading No -Debridement - Subq, 1st 20sq cm Yes Pain Scale: 0-10 Numeric Is Patient Pain Free? Yes - Nurse 3 - General Ulcer D/C NN Start: 01/10/20 20:19 Freq: Status: Active Protocol: Activity Type Activity Date Activity User E-Sign Co-Sign Detail Recorded Client Recorded Date Recorded By Document 01/13/20 11:03 DL [id number] 01/13/20 11:05 DL 01/13/20 11:03 Wound Care Nurse 3 #1- L LATERAL PLANTAR FOOT -Ulcer Cleansing Rinsed/ Irrigated with Saline -Foul Odor after Cleansing No -Primary Dressing Applied Aquacel AG 2x2 -Primary Dressing Covered/Secured with Dry Gauze & Roll Gauze, Secured with Tape -Aquacel AG 2x2 1 Treatment Response Procedure Tolerated Well Pain Scale: 0-10 Numeric Is Patient Pain Free? Yes WC - Visit Discharge Discharge Condition Stable Ambulatory Status Ambulatory Transportation Private Auto Notes: Script for ATB given and work excuse. Wound debrided: left lateral plantar foot Laterality: Left Type of Debridement: Excisional debridement Anesthesia Used: 4% Lidocaine Solution, 5% Lidocaine Gel Depth: Down to and including healthy tissue, in the subcutaneous layer Percentage of wound debrided: 100 Instrument Used: 5mm curette Tissue Removed: Yellow slough, devitalized tissue Severity: Fat Layer Exposed Amount of bleeding with debridement: Mild Bleeding Controlled with: Compression and gauze Patient tolerated procedure well Assessment/Plan Active Problems 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 delayed healing. h/o infection and cellulitis. Foot deformity including hammertoe tailor bunion, left Plan: This patient was evaluated and debridement was performed in an excisional subcutaneous manner. He will continue on doxycycline. Will return to using Aquacel Ag and gauze for moderate/heavy drainage daily and will have him offload his foot as much as possible. His x-ray reports do not indicate acute osteomyelitis or other radiographic evidence of infection. His CT scan also was negative however it is noted that osteomyelitis cannot be fully ruled out with this diagnostic imaging study of choice. F/u in 1 weeks[address] He has [address] Dr[address] Camargo in consultation and treatment options below were discussed. It is noted this patient is not performing really any offloading. They are educated on the importance of this again today. He will likely not make progress if he continues to walk on his wound all day. He does not like his wedge offloading shoe. I offered him a cam walker boot with dual density Plastizote offloading liner pocket. He is scheduled to have this dispensed and fabricated at the foot and ankle center. The gel insole in his loafer shoe was modified today with an offloading pocket removed adjacent to the ulcer anatomic site. He understands this is not the recommended formidable offloading but will be better than not doing anything. He was advised to go nonweightbearing at home to alleviate pressure on the site. due to the recurrent and complicated healing course. A bone biopsy or simple resection of the fifth metatarsal head can be performed which is the gold standard confirming osteomyelitis and alleviating his foot deformity. He previously did not want to proceed forward with surgical intervention. He still is now hesitant to proceed forward at this time because he states he will not be able to stay off of his foot. He is concerned about losing his job. He relates he had noninvasive vascular arterial studies performed approximately in February of last year at an outside facility and he had normal perfusion. He did also palpable pulses. Regardless his wound has been open for potentially over 1 year.
[2020-01-20 09:56] VITALS: BP 159/74; PULSE 75; RESP 18; TEMP 36.1; BMI 29.5
--- NOTE | 2020-01-20 17:04 | PN.PCM_ITS ---
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 Status: Chronic Current Visit: Yes Code(s): L97.522 - Non-pressure chronic ulcer of other part of left foot with fat layer exposed (2) Chronic ulcer of left foot with fat layer exposed Status: Chronic Current Visit: Yes Code(s): L97.522 - Non-pressure chronic ulcer of other part of left foot with fat layer exposed (3) Delayed wound healing Status: Chronic Current Visit: Yes Code(s): T14.8XXD - Other injury of unspecified body region, subsequent encounter Type of Wound Date of Service: 01/20/20 Chief Complaint: nonhealing wound left plantar foot History of Wound: Jose J is a 64 y/o gentleman that presents to the wound healing center for evaluation and treatment of a wound to his left plantar foot s/p I and D previously by his PCP, Dr. Giordano. He had a wound to this same area in February 2019 and was seen at [facility] and treated there for 9 weeks with Aquacel and was placed in a wedge shoe to offload his foot. He has undergone vascular testing that he reports was normal and had xrays which did not show osteomyelitis. 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 He and his did not want to do surgery. His wound closed and he was discharged from the facility at the end of March. He began developing pain prior to wound care center referral with swelling and went to see his primary care doctor in the recent setting who performed an I and D and had him do xrays to r/o osteomyelitis and performed a wound culture. He denies fever or chills or nausea but did have these last weekend before he was started on antibiotics. Recently he is growing out staph epidermidis and his responded well to doxycycline. His doxycycline course is scheduled to and within the next couple of days. His is concerned that his infection will come back when he completes antibiotics and asked if he can be kept on it indefinitely. He recently had a CT scan of his foot also and these results were previously reviewed. He keeps walking on his foot in a steel toe boot 4 days a week and now refuses to wear his offloading wedge shoe because it makes him feel like he is falling. He is scheduled to get an offloading CAM Walker boot at the foot and ankle center but did not do this yet. He brought his shoe with gel sole liner today and is amendable to have a pocket cut out. He denies claudication with walking. He had vascular studies performed last February at an outside facility and these have been requested but not received yet. He denies fever, chill, nausea, vomiting, redness or odor. Progress of Wound: Jose J is here for follow up of a chronic ulcer of his left plantar foot. There has been minimal improvement since his last visit. He has not followed through with offloading measures discussed by Dr. Camargo. He denies any worsening drainage or pain or erythema. - Physical Exam Vital Signs Temp Pulse Resp BP 97 F L 75 18 159/74 H 01/20/20 09:56 01/20/20 09:56 01/20/20 09:56 01/20/20 09:56 General: Alert, Oriented x3, Cooperative, No apparent distress HEENT: Atraumatic, Normocephalic Oral: Moist Mucosa Abdomen: Obese Extremities: Edema Skin: Ulcer/ Wound Wound Measurements and Assessment WC - Nurse 1 - General Ulcer Measurement Start: 01/06/20 10:34 Freq: Status: Active Protocol: Activity Type Activity Date Activity User E-Sign Co-Sign Detail Recorded Client Recorded Date Recorded By Document 01/20/20 09:56 [id number] 01/20/20 10:05 01/20/20 09:56 Wound Center Nurse 1 [Ulcer Assessment] #1- L LATERAL PLANTAR FOOT -Combined with other wound No -Current Size (cm) - Length 0.5 -Current Size (cm) - Width 0.9 -Current Size (cm) - Depth 0.2 -Total Square Cm 0.45 -Photo Taken No -Tunneling No -Undermining/Tunneling No -Circular Undermining No -Exudate Amt Medium -Exudate Type Serosanguineous -Wound Margin Thickened -Granulation Amt Medium (34-66%) -Granulation Quality Red -Slough/Fibrin Yes -Necrosis Amt Small (1-33%) -Necrotic Tissue Type Adherent Slough -Structure Exposed N/A -Texture (Flory-wound Skin Appearance) Assessed,Callus -Moisture (Flory-wound Skin Appearance Assessed ) -Color (Flory-wound Skin Appearance) Assessed -Temperature (Flory-wound Skin No Abnormality Appearance) (Pt Warm) -Tenderness on Palpation (Flory-wound No Skin Appearance) -Ulcer Cleansing Wound Cleanser -Foul Odor after Cleansing No -Anesthetic Used 4% Lidocaine Solution - Nurse 2 - General Ulcer CM Notes Start: 01/10/20 20:19 Freq: Status: Active Protocol: Activity Type Activity Date Activity User E-Sign Co-Sign Detail Recorded Client Recorded Date Recorded By Document 01/20/20 10:19 MW [id number] 01/20/20 10:37 MW 01/20/20 10:19 Wound Center Nurse 2 [Procedure/Treatment] -Time 10:22 -Correct Patient Yes -Correct Side, Site, Position Yes -Correct Procedure Yes -Procedure Performed Yes -Type of Procedure Debridement -Clinical Debridement Subcutaneous -Tissue Removed Subcutaneous -Post Debridement (cm) - Length 1.0 -Post Debridement (cm) - Width 1.1 -Post Debridement (cm) - Depth 0.2 -Total Square (Post) (cm) 1.10 -Area of Debridement (cm) - Length 1.0 -Area of Debridement (cm) - Width 1.1 -Total Square (Area) (cm) 1.10 -Tunneling No -Undermining/Tunneling No -Circular Undermining No -Wound/Ulcer Outcome Not Healed -Ulcer Cleansing Rinsed/ Irrigated with Saline -Foul Odor after Cleansing No -Bioengineered Tissue No -Bleeding Controlled with Pressure -Offloading No -Treatment Response Procedure Tolerated Well -Debridement - Subq, 1st 20sq cm Yes [See Physician Procedure note for Specifics] Pain Scale: 0-10 Numeric [Pain] -Is Patient Pain Free? Yes - Nurse 3 - General Ulcer D/C NN Start: 01/10/20 20:19 Freq: Status: Active Protocol: Activity Type Activity Date Activity User E-Sign Co-Sign Detail Recorded Client Recorded Date Recorded By Document 01/20/20 10:49 RB [id number] 01/20/20 10:50 RB 01/20/20 10:49 Wound Care Nurse 3 [Wound Dressing] #1- L LATERAL PLANTAR FOOT -Ulcer Cleansing Wound Cleanser -Other Dressing aquacel AG -Primary Dressing Covered/Secured Dry Gauze & with Roll Gauze, Secured with Tape [Post Procedure Tolerated] -Treatment Response Procedure Tolerated Well Pain Scale: 0-10 Numeric [Pain] -Is Patient Pain Free? Yes Teaching: Wound Center [Wound Center Education] (Items with an * have Printed Materials Available- Please identify what is given to patient under the Teaching materials given to patient and caregiver Section. Dressing Your Wound -Person Taught Patient -Teaching Method Discussion, Demonstration -Response to teaching Verbalize understanding WC - Visit Discharge [Visit Discharge Information] -Discharge Condition Stable -Ambulatory Status Ambulatory -Transportation Private Auto -Medication Reconcilliation completed No & provided to patient/care provider -Clinical Summary of Care Provided Yes Psych/Mental Status: Normal Affect, Appropriate Debridement Note Post-Debridement Measurements/Treatment - Nurse 2 - General Ulcer CM Notes Start: 01/10/20 20:19 Freq: Status: Active Protocol: Activity Type Activity Date Activity User E-Sign Co-Sign Detail Recorded Client Recorded Date Recorded By Document 01/13/20 10:40 MW [id number] 01/13/20 10:51 MW Document 01/20/20 10:19 MW [id number] 01/20/20 10:37 MW 01/13/20 01/20/20 10:40 10:19 Wound Center Nurse 2 #1- L LATERAL PLANTAR FOOT -Time 10:40 10:22 -Correct Patient Yes Yes -Correct Side, Site, Position Yes Yes -Correct Procedure Yes Yes -Procedure Performed Yes -Type of Procedure Debridement -Clinical Debridement Subcutaneous Subcutaneous -Tissue Removed Subcutaneous Subcutaneous -Post Debridement (cm) - Length 1.0 1.0 -Post Debridement (cm) - Width 1.4 1.1 -Post Debridement (cm) - Depth 0.2 0.2 -Total Square (Post) (cm) 1.40 1.10 -Area of Debridement (cm) - Length 1.0 1.0 -Area of Debridement (cm) - Width 1.4 1.1 -Total Square (Area) (cm) 1.40 1.10 -Tunneling No No -Undermining/Tunneling No No -Circular Undermining No No -Wound/Ulcer Outcome Not Healed Not Healed -Ulcer Cleansing Rinsed/ Rinsed/ Irrigated with Irrigated with Saline Saline -Foul Odor after Cleansing No No -Bioengineered Tissue No No -Bleeding Controlled with Pressure Pressure -Offloading No No -Treatment Response Procedure Tolerated Well -Debridement - Subq, 1st 20sq cm Yes Yes Pain Scale: 0-10 Numeric Is Patient Pain Free? Yes Yes - Nurse 3 - General Ulcer D/C NN Start: 01/10/20 20:19 Freq: Status: Active Protocol: Activity Type Activity Date Activity User E-Sign Co-Sign Detail Recorded Client Recorded Date Recorded By Document 01/13/20 11:03 DL [id number] 01/13/20 11:05 DL Document 01/20/20 10:49 RB [id number] 01/20/20 10:50 RB 01/13/20 01/20/20 11:03 10:49 Wound Care Nurse 3 #1- L LATERAL PLANTAR FOOT -Ulcer Cleansing Rinsed/ Wound Cleanser Irrigated with Saline -Foul Odor after Cleansing No -Primary Dressing Applied Aquacel AG 2x2 -Other Dressing aquacel AG -Primary Dressing Covered/Secured with Dry Gauze & Dry Gauze & Roll Gauze, Roll Gauze, Secured with Secured with Tape Tape -Aquacel AG 2x2 1 Treatment Response Procedure Procedure Tolerated Well Tolerated Well Pain Scale: 0-10 Numeric Is Patient Pain Free? Yes Yes Teaching: Wound Center Dressing Your Wound -Person Taught Patient -Teaching Method Discussion, Demonstration -Response to teaching Verbalize understanding WC - Visit Discharge Discharge Condition Stable Stable Ambulatory Status Ambulatory Ambulatory Transportation Private Auto Private Auto Medication Reconcilliation completed & No provided to patient/care provider Clinical Summary of Care Provided Yes Notes: Script for ATB given and work excuse. 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 delayed healing. h/o infection and cellulitis. Foot deformity including hammertoe tailor bunion, left Plan: This patient was evaluated and debridement was performed in an excisional subcutaneous manner. He will continue on doxycycline. Will continue to use Aquacel Ag and gauze for moderate/heavy drainage daily and will have him offload his foot as much as possible. His x-ray reports do not indicate acute osteomyelitis or other radiographic evidence of infection. His CT scan also was negative however it is noted that osteomyelitis cannot be fully ruled out with this diagnostic imaging study of choice. F/u in 2 weeks[address] He has [address] Dr[address] Camargo in consultation and treatment options below were discussed. It is noted this patient is not performing really any offloading. They are educated on the importance of this again today. He will likely not make progress if he continues to walk on his wound all day. He does not like his wedge offloading shoe. I offered him a cam walker boot with dual density Plastizote offloading liner pocket. He is scheduled to have this dispensed and fabricated at the foot and ankle center. The gel insole in his loafer shoe was modified today with an offloading pocket removed adjacent to the ulcer anatomic site. He understands this is not the recommended formidable offloading but will be better than not doing anything. He was advised to go nonweightbearing at home to alleviate pressure on the site. due to the recurrent and complicated healing course. A bone biopsy or simple resection of the fifth metatarsal head can be performed which is the gold standard confirming osteomyelitis and alleviating his foot deformity. He previously did not want to proceed forward with surgical intervention. He still is now hesitant to proceed forward at this time because he states he will not be able to stay off of his foot. He is concerned about losing his job. He relates he had noninvasive vascular arterial studies performed approximately in February of last year at an outside facility and he had normal perfusion. He did also palpable pulses. Regardless his wound has been open for potentially over 1 year.
== END 2020-01-23 23:59 ==
LOC: WC 10:15
PROVIDERS: PCP Family Medicine; Referring Provider Family Medicine; Visit Provider Family Medicine
DX: L97.522 Non-pressure chronic ulcer of other part of left foot with fat layer exposed (principal); M20.42 Other hammer toe(s) (acquired), left foot; M21.612 Bunion of left foot
CPT/HCPCS: 11042

== ENCOUNTER 2020-02-10 09:00 | Outpatient (RCR) | payer BC, SELFPAY ==
[2020-01-24 00:31] VITALS: BP 159/74; PULSE 75; RESP 18; TEMP 36.1
[2020-02-03 10:28] VITALS: BP 155/70; PULSE 79; RESP 18; TEMP 36.7; BMI 29.5
--- NOTE | 2020-02-03 15:07 | PCM.WC.PN ---
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 Status: Chronic Current Visit: Yes Code(s): L97.522 - Non-pressure chronic ulcer of other part of left foot with fat layer exposed (3) Chronic ulcer of left foot with fat layer exposed Status: Chronic Current Visit: Yes Code(s): L97.522 - Non-pressure chronic ulcer of other part of left foot with fat layer exposed (4) Delayed wound healing Status: Chronic Current Visit: Yes Code(s): T14.8XXD - Other injury of unspecified body region, subsequent encounter Type of Wound Date of Service: 02/03/20 Chief Complaint: nonhealing wound left plantar foot History of Wound: Jose J is a 64 y/o gentleman that presents to the wound healing center for evaluation and treatment of a wound to his left plantar foot s/p I and D previously by his PCP, Dr. Giordano. He had a wound to this same area in February 2019 and was seen at [facility] and treated there for 9 weeks with Aquacel and was placed in a wedge shoe to offload his foot. He has undergone vascular testing that he reports was normal and had xrays which did not show osteomyelitis. 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 He and his did not want to do surgery. His wound closed and he was discharged from the facility at the end of March. He began developing pain prior to wound care center referral with swelling and went to see his primary care doctor in the recent setting who performed an I and D and had him do xrays to r/o osteomyelitis and performed a wound culture. He denies fever or chills or nausea but did have these last weekend before he was started on antibiotics. Recently he is growing out staph epidermidis and his responded well to doxycycline. His doxycycline course is scheduled to and within the next couple of days. His is concerned that his infection will come back when he completes antibiotics and asked if he can be kept on it indefinitely. He recently had a CT scan of his foot also and these results were previously reviewed. He keeps walking on his foot in a steel toe boot 4 days a week and now refuses to wear his offloading wedge shoe because it makes him feel like he is falling. He is scheduled to get an offloading CAM Walker boot at the foot and ankle center but did not do this yet. He brought his shoe with gel sole liner today and is amendable to have a pocket cut out. He denies claudication with walking. He had vascular studies performed last February at an outside facility and these have been requested but not received yet. He denies fever, chill, nausea, vomiting, redness or odor. Progress of Wound: Jose J is here for follow up of a chronic ulcer of his left plantar foot. There has been minimal improvement since his last visit. He has not followed through with offloading measures discussed by Dr. Camargo. He denies any worsening drainage or pain or erythema. - Physical Exam Vital Signs Temp Pulse Resp BP 98.1 F 79 18 155/70 H 02/03/20 10:28 02/03/20 10:28 02/03/20 10:28 02/03/20 10:28 General: Alert, Oriented x3, Cooperative, No apparent distress HEENT: Atraumatic Oral: Moist Mucosa Abdomen: Obese Extremities: No edema Skin: Ulcer/ Wound Wound Measurements and Assessment WC - Nurse 1 - General Ulcer Measurement Start: 02/03/20 10:27 Freq: Status: Active Protocol: Activity Type Activity Date Activity User E-Sign Co-Sign Detail Recorded Client Recorded Date Recorded By Document 02/03/20 10:28 [id number] 02/03/20 10:30 RB 02/03/20 10:28 Wound Center Nurse 1 [Ulcer Assessment] #1- L LATERAL PLANTAR FOOT -Combined with other wound No -Current Size (cm) - Length 0.6 -Current Size (cm) - Width 0.6 -Current Size (cm) - Depth 0.2 -Total Square Cm 0.36 -Tunneling No -Undermining/Tunneling No -Circular Undermining No -Exudate Amt Small -Exudate Type Serosanguineous -Wound Margin Thickened -Granulation Amt Medium (34-66%) -Granulation Quality Tranquillity -Slough/Fibrin Yes -Necrosis Amt None Present (0 %) -Necrotic Tissue Type Adherent Slough -Structure Exposed N/A -Texture (Flory-wound Skin Appearance) Assessed,Callus -Moisture (Flory-wound Skin Appearance Assessed ) -Color (Flory-wound Skin Appearance) Assessed -Temperature (Flory-wound Skin No Abnormality Appearance) (Pt Warm) -Tenderness on Palpation (Flory-wound No Skin Appearance) -Ulcer Cleansing Wound Cleanser -Foul Odor after Cleansing No -Anesthetic Used 4% Lidocaine Solution [Edema Assessment] -Lower Limb Edema Present Yes -Left Calf (cm) 35.5 -Left Ankle (cm) 22 WC - Nurse 2 - General Ulcer CM Notes Start: 02/03/20 10:27 Freq: Status: Active Protocol: Activity Type Activity Date Activity User E-Sign Co-Sign Detail Recorded Client Recorded Date Recorded By Document 02/03/20 11:21 MW [id number] 02/03/20 11:28 MW 02/03/20 11:21 Wound Center Nurse 2 [Procedure/Treatment] #1- L LATERAL PLANTAR FOOT -Time 11:22 -Correct Patient Yes -Correct Side, Site, Position Yes -Correct Procedure Yes -Procedure Performed Yes -Type of Procedure Debridement -Clinical Debridement Subcutaneous -Tissue Removed Subcutaneous -Post Debridement (cm) - Length 1.1 -Post Debridement (cm) - Width 1.4 -Post Debridement (cm) - Depth 0.2 -Total Square (Post) (cm) 1.54 -Area of Debridement (cm) - Length 1.1 -Area of Debridement (cm) - Width 1.4 -Total Square (Area) (cm) 1.54 -Tunneling No -Undermining/Tunneling No -Circular Undermining No -Wound/Ulcer Outcome Not Healed -Ulcer Cleansing Rinsed/ Irrigated with Saline -Foul Odor after Cleansing No -Bioengineered Tissue No -Bleeding Controlled with Pressure -Offloading No -Debridement - Subq, 1st 20sq cm Yes [See Physician Procedure note for Specifics] Pain Scale: 0-10 Numeric [Pain] -Is Patient Pain Free? Yes QUOC - Nurse 3 - General Ulcer D/C NN Start: 02/03/20 10:27 Freq: Status: Active Protocol: Activity Type Activity Date Activity User E-Sign Co-Sign Detail Recorded Client Recorded Date Recorded By Document 02/03/20 11:36 BM [id number] 02/03/20 11:36 [facility] 02/03/20 11:36 Wound Care Nurse 3 [Wound Dressing] #1- L LATERAL PLANTAR FOOT -Ulcer Cleansing Rinsed/ Irrigated with Saline -Foul Odor after Cleansing No -Primary Dressing Applied Other -Other Dressing aquacel ag -Primary Dressing Covered/Secured Dry Gauze & with Roll Gauze, Secured with Tape [Post Procedure Tolerated] -Treatment Response Procedure Tolerated Well Pain Scale: 0-10 Numeric [Pain] -Is Patient Pain Free? Yes - Visit Discharge [Visit Discharge Information] -Discharge Condition Stable -Ambulatory Status Ambulatory -Transportation Private Auto Psych/Mental Status: Normal Affect, Appropriate Debridement Note Post-Debridement Measurements/Treatment - Nurse 2 - General Ulcer CM Notes Start: 02/03/20 10:27 Freq: Status: Active Protocol: Activity Type Activity Date Activity User E-Sign Co-Sign Detail Recorded Client Recorded Date Recorded By Document 02/03/20 11:21 [id number] 02/03/20 11:28 02/03/20 11:21 Wound Center Nurse 2 #1- L LATERAL PLANTAR FOOT -Time 11:22 -Correct Patient Yes -Correct Side, Site, Position Yes -Correct Procedure Yes -Procedure Performed Yes -Type of Procedure Debridement -Clinical Debridement Subcutaneous -Tissue Removed Subcutaneous -Post Debridement (cm) - Length 1.1 -Post Debridement (cm) - Width 1.4 -Post Debridement (cm) - Depth 0.2 -Total Square (Post) (cm) 1.54 -Area of Debridement (cm) - Length 1.1 -Area of Debridement (cm) - Width 1.4 -Total Square (Area) (cm) 1.54 -Tunneling No -Undermining/Tunneling No -Circular Undermining No -Wound/Ulcer Outcome Not Healed -Ulcer Cleansing Rinsed/ Irrigated with Saline -Foul Odor after Cleansing No -Bioengineered Tissue No -Bleeding Controlled with Pressure -Offloading No -Debridement - Subq, 1st 20sq cm Yes Pain Scale: 0-10 Numeric Is Patient Pain Free? Yes - Nurse 3 - General Ulcer D/C NN Start: 02/03/20 10:27 Freq: Status: Active Protocol: Activity Type Activity Date Activity User E-Sign Co-Sign Detail Recorded Client Recorded Date Recorded By Document 02/03/20 11:36 [facility] [id number] 02/03/20 11:36 [facility] 02/03/20 11:36 Wound Care Nurse 3 #1- L LATERAL PLANTAR FOOT -Ulcer Cleansing Rinsed/ Irrigated with Saline -Foul Odor after Cleansing No -Primary Dressing Applied Other -Other Dressing aquacel ag -Primary Dressing Covered/Secured with Dry Gauze & Roll Gauze, Secured with Tape Treatment Response Procedure Tolerated Well Pain Scale: 0-10 Numeric Is Patient Pain Free? Yes WC - Visit Discharge Discharge Condition Stable Ambulatory Status Ambulatory Transportation Private Auto Wound debrided: left lateral plantar foot Laterality: Left Type of Debridement: Excisional debridement Anesthesia Used: 4% Lidocaine Solution, 5% Lidocaine Gel Depth: Down to and including healthy tissue, in the subcutaneous layer Percentage of wound debrided: 100 Instrument Used: #15 blade, Forceps Tissue Removed: Yellow slough, devitalized tissue Severity: Fat Layer Exposed Amount of bleeding with debridement: Mild Bleeding Controlled with: Compression and gauze Patient tolerated procedure well Assessment/Plan Active Problems Abscess of left foot excluding toes (Chronic) 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 delayed healing. h/o infection and cellulitis. Foot deformity including hammertoe tailor bunion, left Plan: This patient was evaluated and debridement was performed in an excisional subcutaneous manner. He will continue on doxycycline. Stressed importance of offloading and need for them to bring in work boot to modify to offload. Will continue to use Aquacel Ag and gauze for moderate/heavy drainage daily and will have him offload his foot as much as possible. His x-ray reports do not indicate acute osteomyelitis or other radiographic evidence of infection. His CT scan also was negative however it is noted that osteomyelitis cannot be fully ruled out with this diagnostic imaging study of choice. F/u in 1 week[address] He has [address] Dr[address] Camargo in consultation and treatment options below were discussed. It is noted this patient is not performing really any offloading. They are educated on the importance of this again today. He will likely not make progress if he continues to walk on his wound all day. He does not like his wedge offloading shoe. I offered him a cam walker boot with dual density Plastizote offloading liner pocket. He is scheduled to have this dispensed and fabricated at the foot and ankle center. The gel insole in his loafer shoe was modified today with an offloading pocket removed adjacent to the ulcer anatomic site. He understands this is not the recommended formidable offloading but will be better than not doing anything. He was advised to go nonweightbearing at home to alleviate pressure on the site. due to the recurrent and complicated healing course. A bone biopsy or simple resection of the fifth metatarsal head can be performed which is the gold standard confirming osteomyelitis and alleviating his foot deformity. He previously did not want to proceed forward with surgical intervention. He still is now hesitant to proceed forward at this time because he states he will not be able to stay off of his foot. He is concerned about losing his job. He relates he had noninvasive vascular arterial studies performed approximately in February of last year at an outside facility and he had normal perfusion. He did also palpable pulses. Regardless his wound has been open for potentially over 1 year.
[2020-02-10 09:13] VITALS: BP 151/75; PULSE 72; RESP 18; TEMP 36.7; BMI 29.5
--- NOTE | 2020-02-10 15:25 | PN.PCM_ITS ---
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 Status: Chronic Current Visit: Yes Code(s): L97.522 - Non-pressure chronic ulcer of other part of left foot with fat layer exposed (3) Chronic ulcer of left foot with fat layer exposed Status: Chronic Current Visit: Yes Code(s): L97.522 - Non-pressure chronic ulcer of other part of left foot with fat layer exposed (4) Delayed wound healing Status: Chronic Current Visit: Yes Code(s): T14.8XXD - Other injury of unspecified body region, subsequent encounter Type of Wound Date of Service: 02/10/20 Chief Complaint: nonhealing wound left plantar foot History of Wound: Jose J is a 64 y/o gentleman that presents to the wound healing center for evaluation and treatment of a wound to his left plantar foot s/p I and D previously by his PCP, Dr. Giordano. He had a wound to this same area in February 2019 and was seen at [facility] and treated there for 9 weeks with Aquacel and was placed in a wedge shoe to offload his foot. He has undergone vascular testing that he reports was normal and had xrays which did not show osteomyelitis. 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 He and his did not want to do surgery. His wound closed and he was discharged from the facility at the end of March. He began developing pain prior to wound care center referral with swelling and went to see his primary care doctor in the recent setting who performed an I and D and had him do xrays to r/o osteomyelitis and performed a wound culture. He denies fever or chills or nausea but did have these last weekend before he was started on antibiotics. Recently he is growing out staph epidermidis and his responded well to doxycycline. His doxycycline course is scheduled to and within the next couple of days. His is concerned that his infection will come back when he completes antibiotics and asked if he can be kept on it indefinitely. He recently had a CT scan of his foot also and these results were previously reviewed. He keeps walking on his foot in a steel toe boot 4 days a week and now refuses to wear his offloading wedge shoe because it makes him feel like he is falling. He is scheduled to get an offloading CAM Walker boot at the foot and ankle center but did not do this yet. He brought his shoe with gel sole liner today and is amendable to have a pocket cut out. He denies claudication with walking. He had vascular studies performed last February at an outside facility and these have been requested but not received yet. He denies fever, chill, nausea, vomiting, redness or odor. Progress of Wound: Jose J is here for follow up of a chronic ulcer of his left plantar foot. There has been minimal improvement since his last visit. He has not followed through with offloading measures discussed by Dr. Camargo. He de nies any worsening drainage or pain or erythema. - Physical Exam Vital Signs Temp Pulse Resp BP 98.1 F 72 18 151/75 H 02/10/20 09:13 02/10/20 09:13 02/10/20 09:13 02/10/20 09:13 General: Alert, Oriented x3, Cooperative, No apparent distress HEENT: Atraumatic, Normocephalic Oral: Moist Mucosa Abdomen: Obese Extremities: No cyanosis, No edema, Peripheral Pulses Normal Skin: Ulcer/ Wound Wound Measurements and Assessment WC - Nurse 1 - General Ulcer Measurement Start: 02/03/20 10:27 Freq: Status: Active Protocol: Activity Type Activity Date Activity User E-Sign Co-Sign Detail Recorded Client Recorded Date Recorded By Document 02/10/20 09:13 [id number] 02/10/20 09:15 RB 02/10/20 09:13 Wound Center Nurse 1 [Ulcer Assessment] #1- L LATERAL PLANTAR FOOT -Combined with other wound No -Current Size (cm) - Length 0.7 -Current Size (cm) - Width 0.7 -Current Size (cm) - Depth 0.2 -Total Square Cm 0.49 -Tunneling No -Undermining/Tunneling No -Circular Undermining No -Exudate Amt Medium -Exudate Type Serosanguineous -Wound Margin Thickened -Granulation Amt Medium (34-66%) -Granulation Quality [place] -Slough/Fibrin Yes -Necrosis Amt Small (1-33%) -Necrotic Tissue Type Adherent Slough -Structure Exposed N/A -Texture (Flory-wound Skin Appearance) Callus -Moisture (Flory-wound Skin Appearance Assessed ) -Color (Flory-wound Skin Appearance) Assessed -Temperature (Flory-wound Skin No Abnormality Appearance) (Pt Warm) -Tenderness on Palpation (Flory-wound No Skin Appearance) -Ulcer Cleansing Wound Cleanser -Foul Odor after Cleansing No -Anesthetic Used 5% Lidocaine Gel WC - Nurse 2 - General Ulcer CM Notes Start: 02/03/20 10:27 Freq: Status: Active Protocol: Activity Type Activity Date Activity User E-Sign Co-Sign Detail Recorded Client Recorded Date Recorded By Document 02/10/20 09:37 MW [id number] 02/10/20 09:48 MW 02/10/20 09:37 Wound Center Nurse 2 [Procedure/Treatment] -Time 09:38 -Correct Patient Yes -Correct Side, Site, Position Yes -Correct Procedure Yes -Procedure Performed Yes -Type of Procedure Debridement -Clinical Debridement Subcutaneous -Tissue Removed Subcutaneous -Post Debridement (cm) - Length 1.2 -Post Debridement (cm) - Width 1.1 -Post Debridement (cm) - Depth 0.2 -Total Square (Post) (cm) 1.32 -Area of Debridement (cm) - Length 1.2 -Area of Debridement (cm) - Width 1.1 -Total Square (Area) (cm) 1.32 -Tunneling No -Undermining/Tunneling No -Circular Undermining No -Wound/Ulcer Outcome Not Healed -Ulcer Cleansing Rinsed/ Irrigated with Saline -Foul Odor after Cleansing No -Bioengineered Tissue No -Bleeding Controlled with Pressure -Offloading No -Debridement - Subq, 1st 20sq cm Yes [See Physician Procedure note for Specifics] Pain Scale: 0-10 Numeric [Pain] -Is Patient Pain Free? Yes WC - Nurse 3 - General Ulcer D/C NN Start: 02/03/20 10:27 Freq: Status: Active Protocol: Activity Type Activity Date Activity User E-Sign Co-Sign Detail Recorded Client Recorded Date Recorded By Document 02/10/20 10:02 DL [id number] 02/10/20 10:07 DL 02/10/20 10:02 Wound Care Nurse 3 [Wound Dressing] #1- L LATERAL PLANTAR FOOT -Ulcer Cleansing Rinsed/ Irrigated with Saline -Foul Odor after Cleansing No -Other Dressing aqaucel ag -Primary Dressing Covered/Secured Dry Gauze,Dry with Gauze & Roll Gauze,Secured with Tape [Post Procedure Tolerated] -Treatment Response Procedure Tolerated Well Pain Scale: 0-10 Numeric [Pain] -Is Patient Pain Free? Yes - Visit Discharge [Visit Discharge Information] -Discharge Condition Stable -Ambulatory Status Ambulatory -Transportation Private Auto Psych/Mental Status: Normal Affect, Appropriate Debridement Note Post-Debridement Measurements/Treatment - Nurse 2 - General Ulcer CM Notes Start: 02/03/20 10:27 Freq: Status: Active Protocol: Activity Type Activity Date Activity User E-Sign Co-Sign Detail Recorded Client Recorded Date Recorded By Document 02/03/20 11:21 MW [id number] 02/03/20 11:28 MW Document 02/10/20 09:37 MW [id number] 02/10/20 09:48 MW 02/03/20 02/10/20 11:21 09:37 Wound Center Nurse 2 #1- L LATERAL PLANTAR FOOT -Time 11:22 09:38 -Correct Patient Yes Yes -Correct Side, Site, Position Yes Yes -Correct Procedure Yes Yes -Procedure Performed Yes Yes -Type of Procedure Debridement Debridement -Clinical Debridement Subcutaneous Subcutaneous -Tissue Removed Subcutaneous Subcutaneous -Post Debridement (cm) - Length 1.1 1.2 -Post Debridement (cm) - Width 1.4 1.1 -Post Debridement (cm) - Depth 0.2 0.2 -Total Square (Post) (cm) 1.54 1.32 -Area of Debridement (cm) - Length 1.1 1.2 -Area of Debridement (cm) - Width 1.4 1.1 -Total Square (Area) (cm) 1.54 1.32 -Tunneling No No -Undermining/Tunneling No No -Circular Undermining No No -Wound/Ulcer Outcome Not Healed Not Healed -Ulcer Cleansing Rinsed/ Rinsed/ Irrigated with Irrigated with Saline Saline -Foul Odor after Cleansing No No -Bioengineered Tissue No No -Bleeding Controlled with Pressure Pressure -Offloading No No -Debridement - Subq, 1st 20sq cm Yes Yes Pain Scale: 0-10 Numeric Is Patient Pain Free? Yes Yes - Nurse 3 - General Ulcer D/C NN Start: 02/03/20 10:27 Freq: Status: Active Protocol: Activity Type Activity Date Activity User E-Sign Co-Sign Detail Recorded Client Recorded Date Recorded By Document 02/03/20 11:36 [facility] [id number] 02/03/20 11:36 [facility] Document 02/10/20 10:02 DL [id number] 02/10/20 10:07 DL 02/03/20 02/10/20 11:36 10:02 Wound Care Nurse 3 #1- L LATERAL PLANTAR FOOT -Ulcer Cleansing Rinsed/ Rinsed/ Irrigated with Irrigated with Saline Saline -Foul Odor after Cleansing No No -Primary Dressing Applied Other -Other Dressing aquacel ag aqaucel ag -Primary Dressing Covered/Secured with Dry Gauze & Dry Gauze,Dry Roll Gauze, Gauze & Roll Secured with Gauze,Secured Tape with Tape Treatment Response Procedure Procedure Tolerated Well Tolerated Well Pain Scale: 0-10 Numeric Is Patient Pain Free? Yes Yes WC - Visit Discharge Discharge Condition Stable Stable Ambulatory Status Ambulatory Ambulatory Transportation Private Auto Private Auto Wound debrided: left lateral plantar Laterality: Left Type of Debridement: Excisional debridement Anesthesia Used: 4% Lidocaine Solution, 5% Lidocaine Gel Depth: Down to and including healthy tissue, in the subcutaneous layer Percentage of wound debrided: 100 Instrument Used: #15 blade, Forceps Tissue Removed: Yellow slough, devitalized tissue Severity: Fat Layer Exposed Amount of bleeding with debridement: Mild Bleeding Controlled with: Compression and gauze Patient tolerated procedure well Assessment/Plan Active Problems Abscess of left foot excluding toes (Chronic) 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 delayed healing. h/o infection and cellulitis. Foot deformity including hammertoe tailor bunion, left Plan: This patient was evaluated and debridement was performed in an excisional subcutaneous manner. He will continue on doxycycline. Stressed importance of offloading and work boot insole was modified to offload using padding today. Will continue to use Aquacel Ag and gauze for moderate/heavy drainage daily and will have him offload his foot as much as possible. His x-ray reports do not indicate acute osteomyelitis or other radiographic evidence of infection. His CT scan also was negative however it is noted that osteomyelitis cannot be fully ruled out with this diagnostic imaging study of choice. He has seen Dr. Camargo in consultation and treatment options below were discussed. It is noted this patient is not performing really any offloading. They are educated on the importance of this again today. He will likely not make progress if he continues to walk on his wound all day. He does not like his wedge offloading shoe. I offered him a cam walker boot with dual density Plastizote offloading liner pocket. He is scheduled to have this dispensed and fabricated at the foot and ankle center. The gel insole in his loafer shoe was modified today with an offloading pocket removed adjacent to the ulcer anatomic site. He understands this is not the recommended formidable offloading but will be better than not doing anything. He was advised to go nonweightbearing at home to alleviate pressure on the site. due to the recurrent and complicated healing course. A bone biopsy or simple resection of the fifth metatarsal head can be performed which is the gold standard confirming osteomyelitis and alleviating his foot deformity. He previously did not want to proceed forward with surgical intervention. He still is now hesitant to proceed forward at this time because he states he will not be able to stay off of his foot. He is concerned about losing his job. He relates he had noninvasive vascular arterial studies performed approximately in February of last year at an outside facility and he had normal perfusion. He did also palpable pulses. Regardless his wound has been open for potentially over 1 year. Due to the prolonged healing of his wound/ulcer I feel that he would benefit from application of an advanced wound care skin substitute and without this treatment he is at high risk for losing his foot. This is medically necessary to salvage his limb. He will follow up in 2 weeks or sooner if needed for any increased drainage, erythema or infection.
== END 2020-02-22 23:59 ==
LOC: WC 09:00
PROVIDERS: PCP Family Medicine; Referring Provider Family Medicine; Visit Provider Family Medicine
DX: L97.522 Non-pressure chronic ulcer of other part of left foot with fat layer exposed (principal); L02.612 Cutaneous abscess of left foot; M21.612 Bunion of left foot; Z79.899 Other long term (current) drug therapy
CPT/HCPCS: 11042

== ENCOUNTER 2020-03-23 10:00 | Outpatient (RCR) | payer BC, SELFPAY ==
[2020-02-23 00:29] VITALS: BP 151/75; PULSE 72; RESP 18; TEMP 36.7
[2020-02-24 10:25] VITALS: BP 174/87; PULSE 71; RESP 18; TEMP 36.5; BMI 29.5
[2020-02-24 11:17] VITALS: BP 146/84; PULSE 82
--- NOTE | 2020-02-24 15:06 | PCM.WC.PN ---
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 Status: Chronic Current Visit: Yes Code(s): L97.522 - Non-pressure chronic ulcer of other part of left foot with fat layer exposed (3) Chronic ulcer of left foot with fat layer exposed Status: Chronic Current Visit: Yes Code(s): L97.522 - Non-pressure chronic ulcer of other part of left foot with fat layer exposed (4) Delayed wound healing Status: Chronic Current Visit: Yes Code(s): T14.8XXD - Other injury of unspecified body region, subsequent encounter Type of Wound Date of Service: 02/24/20 Chief Complaint: nonhealing wound left plantar foot History of Wound: Jose J is a 64 y/o gentleman that presents to the wound healing center for evaluation and treatment of a wound to his left plantar foot s/p I and D previously by his PCP, Dr. Giordano. He had a wound to this same area in February 2019 and was seen at [facility] and treated there for 9 weeks with Aquacel and was placed in a wedge shoe to offload his foot. He has undergone vascular testing that he reports was normal and had xrays which did not show osteomyelitis. 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 He and his did not want to do surgery. His wound closed and he was discharged from the facility at the end of March. He began developing pain prior to wound care center referral with swelling and went to see his primary care doctor in the recent setting who performed an I and D and had him do xrays to r/o osteomyelitis and performed a wound culture. He denies fever or chills or nausea but did have these last weekend before he was started on antibiotics. Recently he is growing out staph epidermidis and his responded well to doxycycline. His doxycycline course is scheduled to and within the next couple of days. His is concerned that his infection will come back when he completes antibiotics and asked if he can be kept on it indefinitely. He recently had a CT scan of his foot also and these results were previously reviewed. He keeps walking on his foot in a steel toe boot 4 days a week and now refuses to wear his offloading wedge shoe because it makes him feel like he is falling. He is scheduled to get an offloading CAM Walker boot at the foot and ankle center but did not do this yet. He brought his shoe with gel sole liner today and is amendable to have a pocket cut out. He denies claudication with walking. He had vascular studies performed last February at an outside facility and these have been requested but not received yet. He denies fever, chill, nausea, vomiting, redness or odor. Progress of Wound: Jose J is here for follow up of a chronic ulcer of his left plantar foot. There has been minimal improvement since his last visit. He has not followed through with offloading measures discussed by Dr. Camargo. He did tolerate offloading adjustment made to his work boot insole. He denies any worsening drainage or pain or erythema. - Physical Exam Vital Signs Temp Pulse Resp BP 97.7 F L 82 18 146/84 H 02/24/20 10:25 02/24/20 11:17 02/24/20 10:25 02/24/20 11:17 General: Alert, Oriented x3, Cooperative, No apparent distress HEENT: Atraumatic, Normocephalic Oral: Moist Mucosa Abdomen: Obese Extremities: No cyanosis, No edema, Capillary Refill Less than 3 Seconds Skin: Ulcer/ Wound Wound Measurements and Assessment WC - Nurse 1 - General Ulcer Measurement Start: 02/24/20 10:25 Freq: Status: Active Protocol: Activity Type Activity Date Activity User E-Sign Co-Sign Detail Recorded Client Recorded Date Recorded By Document 02/24/20 10:25 [facility] [id number] 02/24/20 10:34 [facility] 02/24/20 10:25 Wound Center Nurse 1 [Ulcer Assessment] #1- L LATERAL PLANTAR FOOT -Combined with other wound No -Current Size (cm) - Length 0.3 -Current Size (cm) - Width 0.6 -Current Size (cm) - Depth 0.3 -Total Square Cm 0.18 -Tunneling No -Undermining/Tunneling No -Circular Undermining No -Exudate Amt Small -Exudate Type Serosanguineous -Wound Margin Flat & Intact -Granulation Amt Medium (34-66%) -Granulation Quality [place] -Slough/Fibrin Yes -Necrosis Amt Small (1-33%) -Necrotic Tissue Type Adherent Slough -Structure Exposed N/A -Texture (Flory-wound Skin Appearance) Callus -Moisture (Flory-wound Skin Appearance Assessed ) -Color (Flory-wound Skin Appearance) Assessed -Temperature (Flory-wound Skin No Abnormality Appearance) (Pt Warm) -Tenderness on Palpation (Flory-wound No Skin Appearance) -Ulcer Cleansing Wound Cleanser -Foul Odor after Cleansing No -Anesthetic Used 5% Lidocaine Gel WC - Nurse 2 - General Ulcer CM Notes Start: 02/24/20 10:25 Freq: Status: Active Protocol: Activity Type Activity Date Activity User E-Sign Co-Sign Detail Recorded Client Recorded Date Recorded By Document 02/24/20 10:47 MW [id number] 02/24/20 11:07 MW 02/24/20 10:47 Wound Center Nurse 2 [Procedure/Treatment] -Time 10:48 -Correct Patient Yes -Correct Side, Site, Position Yes -Correct Procedure Yes -Procedure Performed Yes -Type of Procedure Debridement -Clinical Debridement Subcutaneous -Tissue Removed Subcutaneous -Post Debridement (cm) - Length 1.1 -Post Debridement (cm) - Width 1.8 -Post Debridement (cm) - Depth 0.2 -Total Square (Post) (cm) 1.98 -Area of Debridement (cm) - Length 1.1 -Area of Debridement (cm) - Width 1.8 -Total Square (Area) (cm) 1.98 -Tunneling No -Undermining/Tunneling No -Circular Undermining No -Wound/Ulcer Outcome Not Healed -Ulcer Cleansing Rinsed/ Irrigated with Saline -Foul Odor after Cleansing No -Bioengineered Tissue No -Bleeding Controlled with Pressure -Offloading No -Treatment Response Procedure Tolerated Well -Debridement - Subq, 1st 20sq cm Yes [See Physician Procedure note for Specifics] Pain Scale: 0-10 Numeric [Pain] -Is Patient Pain Free? Yes WC - Nurse 3 - General Ulcer D/C NN Start: 02/24/20 10:25 Freq: Status: Active Protocol: Activity Type Activity Date Activity User E-Sign Co-Sign Detail Recorded Client Recorded Date Recorded By Document 02/24/20 11:17 RB [id number] 02/24/20 11:18 RB 02/24/20 11:17 Wound Care Nurse 3 [Wound Dressing] #1- L LATERAL PLANTAR FOOT -Ulcer Cleansing Rinsed/ Irrigated with Saline -Other Dressing aquacel ag -Primary Dressing Covered/Secured Dry Gauze,Dry with Gauze & Roll Gauze,Secured with Tape Vital Signs [Pulse] -Pulse Rate (60-100) 82 -Pulse Location Monitor [Blood Pressure] -Blood Pressure (90/60-120/80) 146/84 H -Blood Pressure Mean (mm Hg) 104 -Source Monitor -Position Sitting -Blood Pressure Location Left Arm Teaching: Wound Center [Wound Center Education] (Items with an * have Printed Materials Available- Please identify what is given to patient under the Teaching materials given to patient and caregiver Section. Eliminating Foot Pressure -Person Taught Patient -Teaching Method Discussion -Response to teaching Verbalize understanding WC - Visit Discharge [Visit Discharge Information] -Discharge Condition Stable -Ambulatory Status Ambulatory -Transportation Private Auto -Medication Reconcilliation completed No & provided to patient/care provider -Clinical Summary of Care Provided Yes Psych/Mental Status: Normal Affect, Appropriate Debridement Note Post-Debridement Measurements/Treatment WC - Nurse 2 - General Ulcer CM Notes Start: 02/24/20 10:25 Freq: Status: Active Protocol: Activity Type Activity Date Activity User E-Sign Co-Sign Detail Recorded Client Recorded Date Recorded By Document 02/24/20 10:47 MW [id number] 02/24/20 11:07 MW 02/24/20 10:47 Wound Center Nurse 2 #1- L LATERAL PLANTAR FOOT -Time 10:48 -Correct Patient Yes -Correct Side, Site, Position Yes -Correct Procedure Yes -Procedure Performed Yes -Type of Procedure Debridement -Clinical Debridement Subcutaneous -Tissue Removed Subcutaneous -Post Debridement (cm) - Length 1.1 -Post Debridement (cm) - Width 1.8 -Post Debridement (cm) - Depth 0.2 -Total Square (Post) (cm) 1.98 -Area of Debridement (cm) - Length 1.1 -Area of Debridement (cm) - Width 1.8 -Total Square (Area) (cm) 1.98 -Tunneling No -Undermining/Tunneling No -Circular Undermining No -Wound/Ulcer Outcome Not Healed -Ulcer Cleansing Rinsed/ Irrigated with Saline -Foul Odor after Cleansing No -Bioengineered Tissue No -Bleeding Controlled with Pressure -Offloading No -Treatment Response Procedure Tolerated Well -Debridement - Subq, 1st 20sq cm Yes Pain Scale: 0-10 Numeric Is Patient Pain Free? Yes WC - Nurse 3 - General Ulcer D/C NN Start: 02/24/20 10:25 Freq: Status: Active Protocol: Activity Type Activity Date Activity User E-Sign Co-Sign Detail Recorded Client Recorded Date Recorded By Document 02/24/20 11:17 RB [id number] 02/24/20 11:18 RB 02/24/20 11:17 Wound Care Nurse 3 #1- L LATERAL PLANTAR FOOT -Ulcer Cleansing Rinsed/ Irrigated with Saline -Other Dressing aquacel ag -Primary Dressing Covered/Secured with Dry Gauze,Dry Gauze & Roll Gauze,Secured with Tape Vital Signs Pulse Rate (60-100) 82 Pulse Location Monitor Blood Pressure (90/60-120/80) 146/84 H Blood Pressure Mean (mm Hg) 104 Source Monitor Position Sitting Blood Pressure Location Left Arm Teaching: Wound Center Eliminating Foot Pressure -Person Taught Patient -Teaching Method Discussion -Response to teaching Verbalize understanding WC - Visit Discharge Discharge Condition Stable Ambulatory Status Ambulatory Transportation Private Auto Medication Reconcilliation completed & No provided to patient/care provider Clinical Summary of Care Provided Yes Wound debrided: left lateral plantar foot Laterality: Left Type of Debridement: Excisional debridement Anesthesia Used: 4% Lidocaine Solution Depth: Down to and including healthy tissue, in the subcutaneous layer Percentage of wound debrided: 100 Instrument Used: #15 blade, Forceps Tissue Removed: Yellow slough, devitalized tissue Severity: Fat Layer Exposed Amount of bleeding with debridement: Moderate Bleeding Controlled with: Compression and gauze Patient tolerated procedure well Assessment/Plan Active Problems Abscess of left foot excluding toes (Chronic) 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 delayed healing. h/o infection and cellulitis. Foot deformity including hammertoe tailor bunion, left Plan: The patient was evaluated and debridement was performed in an excisional subcutaneous manner. He will continue on doxycycline. Stressed importance of offloading and work boot insole was modified and will continue to be used. Will continue to use Aquacel Ag and gauze for moderate/heavy drainage daily and will have him offload his foot as much as possible. His x-ray reports do not indicate acute osteomyelitis or other radiographic evidence of infection. His CT scan also was negative however it is noted that osteomyelitis cannot be fully ruled out with this diagnostic imaging study of choice. He has seen Dr. Camargo in consultation and treatment options below were discussed. It is noted this patient is not performing really any offloading. They are educated on the importance of this again today. He will likely not make progress if he continues to walk on his wound all day. He does not like his wedge offloading shoe. I offered him a cam walker boot with dual density Plastizote offloading liner pocket. He is scheduled to have this dispensed and fabricated at the foot and ankle center. The gel insole in his loafer shoe was modified today with an offloading pocket removed adjacent to the ulcer anatomic site. He understands this is not the recommended formidable offloading but will be better than not doing anything. He was advised to go nonweightbearing at home to alleviate pressure on the site. due to the recurrent and complicated healing course. A bone biopsy or simple resection of the fifth metatarsal head can be performed which is the gold standard confirming osteomyelitis and alleviating his foot deformity. He previously did not want to proceed forward with surgical intervention. He still is now hesitant to proceed forward at this time because he states he will not be able to stay off of his foot. He is concerned about losing his job. He relates he had noninvasive vascular arterial studies performed approximately in February of last year at an outside facility and he had normal perfusion. He did also palpable pulses. Regardless his wound has been open for potentially over 1 year. Due to the prolonged healing of his wound/ulcer I feel that he would benefit from application of an advanced wound care skin substitute and without this treatment he is at high risk for losing his foot. This is medically necessary to salvage his limb. He will follow up in 2 weeks or sooner if needed for any increased drainage, erythema or infection.
[2020-03-09 10:15] VITALS: BP 153/78; PULSE 83; RESP 18; TEMP 36.6; BMI 29.5
[2020-03-09 11:05] VITALS: BP 150/78
--- NOTE | 2020-03-09 14:50 | PN.PCM_ITS ---
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 Status: Chronic Code(s): L97.522 - Non-pressure chronic ulcer of other part of left foot with fat layer exposed (3) Chronic ulcer of left foot with fat layer exposed Status: Chronic Code(s): L97.522 - Non-pressure chronic ulcer of other part of left foot with fat layer exposed (4) Delayed wound healing Status: Chronic Code(s): T14.8XXD - Other injury of unspecified body region, subsequent encounter Type of Wound Date of Service: 03/09/20 Chief Complaint: nonhealing wound left plantar foot History of Wound: Jose J is a 64 y/o gentleman that presents to the wound healing center for evaluation and treatment of a wound to his left plantar foot s/p I and D previously by his PCP, Dr. Giordano. He had a wound to this same area in February 2019 and was seen at [facility] and treated there for 9 weeks with Aquacel and was placed in a wedge shoe to offload his foot. He has undergone vascular testing that he reports was normal and had xrays which did not show osteomyelitis. 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 He and his did not want to do surgery. His wound closed and he was discharged from the facility at the end of March. He began developing pain prior to wound care center referral with swelling and went to see his primary care doctor in the recent setting who performed an I and D and had him do xrays to r/o osteomyelitis and performed a wound culture. He denies fever or chills or nausea but did have these last weekend before he was started on antibiotics. Recently he is growing out staph epidermidis and his responded well to doxycycline. His doxycycline course is scheduled to and within the next couple of days. His is concerned that his infection will come back when he completes antibiotics and asked if he can be kept on it indefinitely. He recently had a CT scan of his foot also and these results were previously reviewed. He keeps walking on his foot in a steel toe boot 4 days a week and now refuses to wear his offloading wedge shoe because it makes him feel like he is falling. He is scheduled to get an offloading CAM Walker boot at the foot and ankle center but did not do this yet. He brought his shoe with gel sole liner today and is amendable to have a pocket cut out. He denies claudication with walking. He had vascular studies p erformed last February at an outside facility and these have been requested but not received yet. He denies fever, chill, nausea, vomiting, redness or odor. Progress of Wound: Jose J is here for follow up of a chronic ulcer of his left plantar foot. There has been minimal improvement since his last visit. He has not followed through with offloading measures discussed by Dr. Camargo. He did tolerate offloading adjustment made to his work boot insole. He denies any worsening drainage or pain or erythema. - Physical Exam Vital Signs Temp Pulse Resp BP 98 F 83 18 150/78 H 03/09/20 10:15 03/09/20 10:15 03/09/20 10:15 03/09/20 11:05 General: Alert, Oriented x3, Cooperative, No apparent distress HEENT: Atraumatic, Normocephalic Oral: Moist Mucosa Abdomen: Obese Extremities: Edema Skin: Ulcer/ Wound Wound Measurements and Assessment WC - Nurse 1 - General Ulcer Measurement Start: 02/24/20 10:25 Freq: Status: Active Protocol: Activity Type Activity Date Activity User E-Sign Co-Sign Detail Recorded Client Recorded Date Recorded By Document 03/09/20 10:15 [id number] 03/09/20 10:17 RB 03/09/20 10:15 Wound Center Nurse 1 [Ulcer Assessment] #1- L LATERAL PLANTAR FOOT -Combined with other wound No -Current Size (cm) - Length 0.3 -Current Size (cm) - Width 0.7 -Current Size (cm) - Depth 0.2 -Total Square Cm 0.21 -Tunneling No -Undermining/Tunneling No -Circular Undermining No -Exudate Amt Small -Exudate Type Serosanguineous -Wound Margin Thickened -Granulation Amt Small (1-33%) -Granulation Quality [place] -Necrosis Amt Small (1-33%) -Necrotic Tissue Type Adherent Slough -Structure Exposed N/A -Texture (Flory-wound Skin Appearance) Callus -Moisture (Flory-wound Skin Appearance Assessed ) -Color (Flory-wound Skin Appearance) Assessed -Temperature (Flory-wound Skin No Abnormality Appearance) (Pt Warm) -Tenderness on Palpation (Flory-wound No Skin Appearance) -Ulcer Cleansing Wound Cleanser -Foul Odor after Cleansing No -Anesthetic Used 5% Lidocaine Gel QUOC - Nurse 2 - General Ulcer CM Notes Start: 02/24/20 10:25 Freq: Status: Active Protocol: Activity Type Activity Date Activity User E-Sign Co-Sign Detail Recorded Client Recorded Date Recorded By Document 03/09/20 10:31 MW [id number] 03/09/20 10:50 MW 03/09/20 10:31 Wound Center Nurse 2 [Procedure/Treatment] -Time 10:31 -Correct Patient Yes -Correct Side, Site, Position Yes -Correct Procedure Yes -Procedure Performed Yes -Type of Procedure Debridement -Clinical Debridement Subcutaneous -Tissue Removed Subcutaneous -Post Debridement (cm) - Length 0.6 -Post Debridement (cm) - Width 0.5 -Post Debridement (cm) - Depth 0.1 -Total Square (Post) (cm) 0.30 -Area of Debridement (cm) - Length 0.6 -Area of Debridement (cm) - Width 0.5 -Total Square (Area) (cm) 0.30 -Tunneling No -Undermining/Tunneling No -Circular Undermining No -Wound/Ulcer Outcome Not Healed -Ulcer Cleansing Rinsed/ Irrigated with Saline -Foul Odor after Cleansing No -Bioengineered Tissue No -Bleeding Controlled with Pressure -Offloading No -Debridement - Subq, 1st 20sq cm Yes [See Physician Procedure note for Specifics] Pain Scale: 0-10 Numeric [Pain] -Is Patient Pain Free? Yes - Nurse 3 - General Ulcer D/C NN Start: 02/24/20 10:25 Freq: Status: Active Protocol: Activity Type Activity Date Activity User E-Sign Co-Sign Detail Recorded Client Recorded Date Recorded By Document 03/09/20 11:05 RB [id number] 03/09/20 11:06 RB 03/09/20 11:05 Wound Care Nurse 3 [Wound Dressing] #1- L LATERAL PLANTAR FOOT -Ulcer Cleansing Wound Cleanser -Primary Dressing Applied Aquacel AG 2x2 -Primary Dressing Covered/Secured Dry Gauze,Dry with Gauze & Roll Gauze,Secured with Tape -Aquacel AG 2x2 1 [Post Procedure Tolerated] -Treatment Response Procedure Tolerated Well Vital Signs [Blood Pressure] -Blood Pressure (90/60-120/80) 150/78 H -Blood Pressure Mean (mm Hg) 102 -Source Monitor -Position Sitting -Blood Pressure Location Left Arm Pain Scale: 0-10 Numeric [Pain] -Is Patient Pain Free? Yes WC - Visit Discharge [Visit Discharge Information] -Discharge Condition Stable -Ambulatory Status Ambulatory -Transportation Private Auto -Medication Reconcilliation completed No & provided to patient/care provider -Clinical Summary of Care Provided Yes Psych/Mental Status: Normal Affect, Appropriate Debridement Note Post-Debridement Measurements/Treatment WC - Nurse 2 - General Ulcer CM Notes Start: 02/24/20 10:25 Freq: Status: Active Protocol: Activity Type Activity Date Activity User E-Sign Co-Sign Detail Recorded Client Recorded Date Recorded By Document 02/24/20 10:47 MW [id number] 02/24/20 11:07 MW Document 03/09/20 10:31 MW [id number] 03/09/20 10:50 MW 02/24/20 03/09/20 10:47 10:31 Wound Center Nurse 2 #1- L LATERAL PLANTAR FOOT -Time 10:48 10:31 -Correct Patient Yes Yes -Correct Side, Site, Position Yes Yes -Correct Procedure Yes Yes -Procedure Performed Yes Yes -Type of Procedure Debridement Debridement -Clinical Debridement Subcutaneous Subcutaneous -Tissue Removed Subcutaneous Subcutaneous -Post Debridement (cm) - Length 1.1 0.6 -Post Debridement (cm) - Width 1.8 0.5 -Post Debridement (cm) - Depth 0.2 0.1 -Total Square (Post) (cm) 1.98 0.30 -Area of Debridement (cm) - Length 1.1 0.6 -Area of Debridement (cm) - Width 1.8 0.5 -Total Square (Area) (cm) 1.98 0.30 -Tunneling No No -Undermining/Tunneling No No -Circular Undermining No No -Wound/Ulcer Outcome Not Healed Not Healed -Ulcer Cleansing Rinsed/ Rinsed/ Irrigated with Irrigated with Saline Saline -Foul Odor after Cleansing No No -Bioengineered Tissue No No -Bleeding Controlled with Pressure Pressure -Offloading No No -Treatment Response Procedure Tolerated Well -Debridement - Subq, 1st 20sq cm Yes Yes Pain Scale: 0-10 Numeric Is Patient Pain Free? Yes Yes - Nurse 3 - General Ulcer D/C NN Start: 02/24/20 10:25 Freq: Status: Active Protocol: Activity Type Activity Date Activity User E-Sign Co-Sign Detail Recorded Client Recorded Date Recorded By Document 02/24/20 11:17 RB [id number] 02/24/20 11:18 RB Document 03/09/20 11:05 RB [id number] 03/09/20 11:06 RB 02/24/20 03/09/20 11:17 11:05 Wound Care Nurse 3 #1- L LATERAL PLANTAR FOOT -Ulcer Cleansing Rinsed/ Wound Cleanser Irrigated with Saline -Primary Dressing Applied Aquacel AG 2x2 -Other Dressing aquacel ag -Primary Dressing Covered/Secured with Dry Gauze,Dry Dry Gauze,Dry Gauze & Roll Gauze & Roll Gauze,Secured Gauze,Secured with Tape with Tape -Aquacel AG 2x2 1 Treatment Response Procedure Tolerated Well Vital Signs Pulse Rate (60-100) 82 Pulse Location Monitor Blood Pressure (90/60-120/80) 146/84 H 150/78 H Blood Pressure Mean (mm Hg) 104 102 Source Monitor Monitor Position Sitting Sitting Blood Pressure Location Left Arm Left Arm Pain Scale: 0-10 Numeric Is Patient Pain Free? Yes Teaching: Wound Center Eliminating Foot Pressure -Person Taught Patient -Teaching Method Discussion -Response to teaching Verbalize understanding WC - Visit Discharge Discharge Condition Stable Stable Ambulatory Status Ambulatory Ambulatory Transportation Private Auto Private Auto Medication Reconcilliation completed & No No provided to patient/care provider Clinical Summary of Care Provided Yes Yes Wound debrided: left lateral plantar foot Laterality: Left Type of Debridement: Excisional debridement Anesthesia Used: 4% Lidocaine Solution, 5% Lidocaine Gel Depth: Down to and including healthy tissue, in the subcutaneous layer Percentage of wound debrided: 100 Instrument Used: #15 blade, Forceps Tissue Removed: Yellow slough, devitalized tissue Severity: Fat Layer Exposed Amount of bleeding with debridement: Mild Bleeding Controlled with: Compression and gauze Patient tolerated procedure well Assessment/Plan Assessment: left lateral plantar foot chronic ulcer. delayed healing. h/o infection and cellulitis. Foot deformity including hammertoe tailor bunion, left Plan: The patient was evaluated and debridement was performed in an excisional subcutaneous manner. He will continue on doxycycline. Stressed importance of offloading and work boot insole was modified and will continue to be used. Will continue to use Aquacel Ag and gauze for moderate/heavy drainage daily and will have him offload his foot as much as possible. His x-ray reports do not indicate acute osteomyelitis or other radiographic evidence of infection. His CT scan also was negative however it is noted that osteomyelitis cannot be fully ruled out with this diagnostic imaging study of choice. He has seen Dr. Camargo in consultation and treatment options below were discussed. It is noted this patient is not performing really any offloading. They are educated on the importance of this again today. He will likely not make progress if he continues to walk on his wound all day. He does not like his wedge offloading shoe. I offered him a cam walker boot with dual density Plastizote offloading liner pocket. He is scheduled to have this dispensed and fabricated at the foot and ankle center. The gel insole in his loafer shoe was modified today with an offloading pocket removed adjacent to the ulcer anatomic site. He understands this is not the recommended formidable offloading but will be better than not doing anything. He was advised to go nonweightbearing at home to alleviate pressure on the site. due to the recurrent and complicated healing course. A bone biopsy or simple resection of the fifth metatarsal head can be performed which is the gold standard confirming osteomyelitis and alleviating his foot deformity. He previously did not want to proceed forward with surgical intervention. He still is now hesitant to proceed forward at this time because he states he will not be able to stay off of his foot. He is concerned about losing his job. He relates he had noninvasive vascular arterial studies performed approximately in February of last year at an outside facility and he had normal perfusion. He did also palpable pulses. Regardless his wound has been open for potentially over 1 year. Due to the prolonged healing of his wound/ulcer I feel that he would benefit from application of an advanced wound care skin substitute and without this treatment he is at high risk for losing his foot. This is medically necessary to salvage his limb. He will follow up in 2 weeks or sooner if needed for any increased drainage, erythema or infection.
[2020-03-23 09:46] VITALS: BP 164/91; PULSE 75; RESP 16; TEMP 36.8; BMI 29.5
--- NOTE | 2020-03-23 14:15 | PN.PCM_ITS ---
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 Status: Chronic Code(s): L97.522 - Non-pressure chronic ulcer of other part of left foot with fat layer exposed (3) Chronic ulcer of left foot with fat layer exposed Status: Chronic Code(s): L97.522 - Non-pressure chronic ulcer of other part of left foot with fat layer exposed (4) Delayed wound healing Status: Chronic Code(s): T14.8XXD - Other injury of unspecified body region, subsequent encounter Type of Wound Date of Service: 03/23/20 Chief Complaint: nonhealing wound left plantar foot History of Wound: Jose J is a 64 y/o gentleman that presents to the wound healing center for evaluation and treatment of a wound to his left plantar foot s/p I and D previously by his PCP, Dr. Giordano. He had a wound to this same area in February 2019 and was seen at [facility] and treated there for 9 weeks with Aquacel and was placed in a wedge shoe to offload his foot. He has undergone vascular testing that he reports was normal and had xrays which did not show osteomyelitis. 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 He and his did not want to do surgery. His wound closed and he was discharged from the facility at the end of March. He began developing pain prior to wound care center referral with swelling and went to see his primary care doctor in the recent setting who performed an I and D and had him do xrays to r/o osteomyelitis and performed a wound culture. He denies fever or chills or nausea but did have these last weekend before he was started on antibiotics. Recently he is growing out staph epidermidis and his responded well to doxycycline. His doxycycline course is scheduled to and within the next couple of days. His is concerned that his infection will come back when he completes antibiotics and asked if he can be kept on it indefinitely. He recently had a CT scan of his foot also and these results were previously reviewed. He keeps walking on his foot in a steel toe boot 4 days a week and now refuses to wear his offloading wedge shoe because it makes him feel like he is falling. He is scheduled to get an offloading CAM Walker boot at the foot and ankle center but did not do this yet. He brought his shoe with gel sole liner today and is amendable to have a pocket cut out. He denies claudication with walking. He had vascular studies p erformed last February at an outside facility and these have been requested but not received yet. He denies fever, chill, nausea, vomiting, redness or odor. Progress of Wound: Jose J is here for follow up of a chronic ulcer of his left plantar foot. There has been minimal improvement since his last visit. He has not followed through with offloading measures discussed by Dr. Camargo. He did tolerate offloading adjustment made to his work boot insole. He denies any worsening drainage or pain or erythema. - Physical Exam Vital Signs Temp Pulse Resp BP 98.2 F 75 16 164/91 H 03/23/20 09:46 03/23/20 09:46 03/23/20 09:46 03/23/20 09:46 General: Alert, Oriented x3, Cooperative, No apparent distress HEENT: Atraumatic, Normocephalic Oral: Moist Mucosa Abdomen: Obese Extremities: No cyanosis, No edema, Capillary Refill Less than 3 Seconds Skin: Ulcer/ Wound Wound Measurements and Assessment WC - Nurse 1 - General Ulcer Measurement Start: 02/24/20 10:25 Freq: Status: Active Protocol: Activity Type Activity Date Activity User E-Sign Co-Sign Detail Recorded Client Recorded Date Recorded By Document 03/23/20 09:46 [facility] [id number] 03/23/20 09:53 [facility] 03/23/20 09:46 Wound Center Nurse 1 [Ulcer Assessment] #1- L LATERAL PLANTAR FOOT -Combined with other wound No -Current Size (cm) - Length 0.1 -Current Size (cm) - Width 0.1 -Current Size (cm) - Depth 0.1 -Total Square Cm 0.01 -Epithelialization Large 67-100% -Tunneling No -Undermining/Tunneling No -Circular Undermining No -Exudate Amt None Present -Texture (Flory-wound Skin Appearance) Assessed,Callus ,Scarring -Moisture (Flory-wound Skin Appearance Assessed,Dry/ ) Scaly -Color (Flory-wound Skin Appearance) Assessed -Temperature (Flory-wound Skin No Abnormality Appearance) (Pt Warm) -Tenderness on Palpation (Flory-wound No Skin Appearance) -Ulcer Cleansing Rinsed/ Irrigated with Saline -Foul Odor after Cleansing No -Anesthetic Used 5% Lidocaine Gel QUOC - Nurse 2 - General Ulcer CM Notes Start: 02/24/20 10:25 Freq: Status: Active Protocol: Activity Type Activity Date Activity User E-Sign Co-Sign Detail Recorded Client Recorded Date Recorded By Document 03/23/20 10:20 MW [id number] 03/23/20 10:40 MW 03/23/20 10:20 Wound Center Nurse 2 [Procedure/Treatment] -Time 10:20 -Correct Patient Yes -Correct Side, Site, Position Yes -Correct Procedure Yes -Procedure Performed Yes -Type of Procedure Debridement -Clinical Debridement Subcutaneous -Tissue Removed Subcutaneous -Post Debridement (cm) - Length 0.8 -Post Debridement (cm) - Width 0.8 -Post Debridement (cm) - Depth 0.1 -Total Square (Post) (cm) 0.64 -Area of Debridement (cm) - Length 0.8 -Area of Debridement (cm) - Width 0.8 -Total Square (Area) (cm) 0.64 -Tunneling No -Undermining/Tunneling No -Circular Undermining No -Wound/Ulcer Outcome Not Healed -Bioengineered Tissue No -Bleeding Controlled with Pressure -Offloading No -Debridement - Subq, 1st 20sq cm Yes [See Physician Procedure note for Specifics] Pain Scale: 0-10 Numeric [Pain] -Is Patient Pain Free? Yes QUOC - Nurse 3 - General Ulcer D/C NN Start: 02/24/20 10:25 Freq: Status: Active Protocol: Activity Type Activity Date Activity User E-Sign Co-Sign Detail Recorded Client Recorded Date Recorded By Document 03/23/20 10:47 DL [id number] 03/23/20 10:48 DL 03/23/20 10:47 Wound Care Nurse 3 [Wound Dressing] #1- L LATERAL PLANTAR FOOT -Ulcer Cleansing Rinsed/ Irrigated with Saline -Foul Odor after Cleansing No -Other Dressing Aquacel ag -Primary Dressing Covered/Secured Dry Gauze & with Roll Gauze, Secured with Tape [Post Procedure Tolerated] -Treatment Response Procedure Tolerated Well Pain Scale: 0-10 Numeric [Pain] -Is Patient Pain Free? Yes - Visit Discharge [Visit Discharge Information] -Discharge Condition Stable -Ambulatory Status Ambulatory -Transportation Private Auto Psych/Mental Status: Normal Affect, Appropriate Debridement Note Post-Debridement Measurements/Treatment - Nurse 2 - General Ulcer CM Notes Start: 02/24/20 10:25 Freq: Status: Active Protocol: Activity Type Activity Date Activity User E-Sign Co-Sign Detail Recorded Client Recorded Date Recorded By Document 02/24/20 10:47 MW [id number] 02/24/20 11:07 MW Document 03/09/20 10:31 MW [id number] 03/09/20 10:50 MW Document 03/23/20 10:20 MW [id number] 03/23/20 10:40 MW 02/24/20 03/09/20 03/23/20 10:47 10:31 10:20 Wound Center Nurse 2 #1- L LATERAL PLANTAR FOOT -Time 10:48 10:31 10:20 -Correct Patient Yes Yes Yes -Correct Side, Site, Position Yes Yes Yes -Correct Procedure Yes Yes Yes -Procedure Performed Yes Yes Yes -Type of Procedure Debridement Debridement Debridement -Clinical Debridement Subcutaneous Subcutaneous Subcutaneous -Tissue Removed Subcutaneous Subcutaneous Subcutaneous -Post Debridement (cm) - Length 1.1 0.6 0.8 -Post Debridement (cm) - Width 1.8 0.5 0.8 -Post Debridement (cm) - Depth 0.2 0.1 0.1 -Total Square (Post) (cm) 1.98 0.30 0.64 -Area of Debridement (cm) - Length 1.1 0.6 0.8 -Area of Debridement (cm) - Width 1.8 0.5 0.8 -Total Square (Area) (cm) 1.98 0.30 0.64 -Tunneling No No No -Undermining/Tunneling No No No -Circular Undermining No No No -Wound/Ulcer Outcome Not Healed Not Healed Not Healed -Ulcer Cleansing Rinsed/ Rinsed/ Irrigated with Irrigated with Saline Saline -Foul Odor after Cleansing No No -Bioengineered Tissue No No No -Bleeding Controlled with Pressure Pressure Pressure -Offloading No No No -Treatment Response Procedure Tolerated Well -Debridement - Subq, 1st 20sq cm Yes Yes Yes Pain Scale: 0-10 Numeric Is Patient Pain Free? Yes Yes Yes - Nurse 3 - General Ulcer D/C NN Start: 02/24/20 10:25 Freq: Status: Active Protocol: Activity Type Activity Date Activity User E-Sign Co-Sign Detail Recorded Client Recorded Date Recorded By Document 02/24/20 11:17 RB [id number] 02/24/20 11:18 RB Document 03/09/20 11:05 RB [id number] 03/09/20 11:06 RB Document 03/23/20 10:47 DL [id number] 03/23/20 10:48 DL 02/24/20 03/09/20 03/23/20 11:17 11:05 10:47 Wound Care Nurse 3 #1- L LATERAL PLANTAR FOOT -Ulcer Cleansing Rinsed/ Wound Cleanser Rinsed/ Irrigated with Irrigated with Saline Saline -Foul Odor after Cleansing No -Primary Dressing Applied Aquacel AG 2x2 -Other Dressing aquacel ag Aquacel ag -Primary Dressing Covered/Secured with Dry Gauze,Dry Dry Gauze,Dry Dry Gauze & Gauze & Roll Gauze & Roll Roll Gauze, Gauze,Secured Gauze,Secured Secured with with Tape with Tape Tape -Aquacel AG 2x2 1 Treatment Response Procedure Procedure Tolerated Well Tolerated Well Vital Signs Pulse Rate (60-100) 82 Pulse Location Monitor Blood Pressure (90/60-120/80) 146/84 H 150/78 H Blood Pressure Mean (mm Hg) 104 102 Source Monitor Monitor Position Sitting Sitting Blood Pressure Location Left Arm Left Arm Pain Scale: 0-10 Numeric Is Patient Pain Free? Yes Yes Teaching: Wound Center Eliminating Foot Pressure -Person Taught Patient -Teaching Method Discussion -Response to teaching Verbalize understanding WC - Visit Discharge Discharge Condition Stable Stable Stable Ambulatory Status Ambulatory Ambulatory Ambulatory Transportation Private Auto Private Auto Private Auto Medication Reconcilliation completed & No No provided to patient/care provider Clinical Summary of Care Provided Yes Yes Wound debrided: left lateral plantar foot Laterality: Left Type of Debridement: Excisional debridement Anesthesia Used: 4% Lidocaine Solution, 5% Lidocaine Gel Depth: Down to and including healthy tissue, in the subcutaneous layer Percentage of wound debrided: 100 Instrument Used: #15 blade, Forceps Tissue Removed: Yellow slough, devitalized tissue Severity: Fat Layer Exposed Amount of bleeding with debridement: Mild Bleeding Controlled with: Compression and gauze Patient tolerated procedure well Assessment/Plan Active Problems Abscess of left foot excluding toes (Chronic) 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 delayed healing. h/o infection and cellulitis. Foot deformity including hammertoe tailor bunion, left Plan: The patient was evaluated and debridement was performed in an excisional subcutaneous manner. He will continue on doxycycline. Stressed importance of offloading and work boot insole was modified and will continue to be used. Will continue to use Aquacel Ag and gauze for moderate/heavy drainage daily and will have him offload his foot as much as possible. His x-ray reports do not indicate acute osteomyelitis or other radiographic evidence of infection. His CT scan also was negative however it is noted that osteomyelitis cannot be fully ruled out with this diagnostic imaging study of choice. He has seen Dr. Camargo in consultation and treatment options below were discussed. It is noted this patient is not performing really any offloading. They are educated on the importance of this again today. He will likely not make progress if he continues to walk on his wound all day. He does not like his wedge offloading shoe. I offered him a cam walker boot with dual density Plastizote offloading liner pocket. He is scheduled to have this dispensed and fabricated at the foot and ankle center. The gel insole in his loafer shoe was modified today with an offloading pocket removed adjacent to the ulcer anatomic site. He understands this is not the recommended formidable offloading but will be better than not doing anything. He was advised to go nonweightbearing at home to alleviate pressure on the site. due to the recurrent and complicated healing course. A bone biopsy or simple resection of the fifth metatarsal head can be performed which is the gold standard confirming osteomyelitis and alleviating his foot deformity. He previously did not want to proceed forward with surgical intervention. He still is now hesitant to proceed forward at this time because he states he will not be able to stay off of his foot. He is concerned about losing his job. He relates he had noninvasive vascular arterial studies performed approximately in February of last year at an outside facility and he had normal perfusion. He did also palpable pulses. Regardless his wound has been open for potentially over 1 year. Due to the prolonged healing of his wound/ulcer I feel that he would benefit from application of an advanced wound care skin substitute and without this treatment he is at high risk for losing his foot. This is medically necessary to salvage his limb. He will follow up in 2 weeks or sooner if needed for any increased drainage, erythema or infection.
== END 2020-03-24 23:59 ==
LOC: WC 10:00
PROVIDERS: PCP Family Medicine; Referring Provider Family Medicine; Visit Provider Family Medicine
DX: L97.522 Non-pressure chronic ulcer of other part of left foot with fat layer exposed (principal); T14.8XXD Other injury of unspecified body region, subsequent encounter; L02.612 Cutaneous abscess of left foot; M21.612 Bunion of left foot
CPT/HCPCS: 11042

== ENCOUNTER 2020-04-13 10:15 | Outpatient (RCR) | payer BC, SELFPAY ==
[2020-03-25 00:19] VITALS: BP 164/91; PULSE 75; RESP 16; TEMP 36.8
[2020-04-13 10:00] VITALS: BP 150/81; PULSE 97; RESP 18; TEMP 37.3; BMI 29.5
--- NOTE | 2020-04-13 12:53 | PCM.WC.PN ---
(1) Abscess of left foot excluding toes Status: Chronic Code(s): L02.612 - Cutaneous abscess of left foot (2) Chronic ulcer of left foot with fat layer exposed Status: Chronic Code(s): L97.522 - Non-pressure chronic ulcer of other part of left foot with fat layer exposed (3) Delayed wound healing Status: Chronic Code(s): T14.8XXD - Other injury of unspecified body region, subsequent encounter (4) Non-healing ulcer of left foot with fat layer exposed Status: Chronic Code(s): L97.522 - Non-pressure chronic ulcer of other part of left foot with fat layer exposed (5) HTN (hypertension) Status: Chronic Qualifiers: Code(s): I10 - Essential (primary) hypertension (6) Hyperlipidemia Status: Chronic Qualifiers: Code(s): E78.5 - Hyperlipidemia, unspecified Type of Wound Date of Service: 04/13/20 Chief Complaint: nonhealing wound left plantar foot History of Wound: Jose J is a 64 y/o gentleman that presents to the wound healing center for evaluation and treatment of a wound to his left plantar foot s/p I and D previously by his PCP, Dr. Giordano. He had a wound to this same area in February 2019 and was seen at [facility] and treated there for 9 weeks with Aquacel and was placed in a wedge shoe to offload his foot. He has undergone vascular testing that he reports was normal and had xrays which did not show osteomyelitis. 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 He and his did not want to do surgery. His wound closed and he was discharged from the facility at the end of March. He began developing pain prior to wound care center referral with swelling and went to see his primary care doctor in the recent setting who performed an I and D and had him do xrays to r/o osteomyelitis and performed a wound culture. He denies fever or chills or nausea but did have these last weekend before he was started on antibiotics. Recently he is growing out staph epidermidis and his responded well to doxycycline. His doxycycline course is scheduled to and within the next couple of days. His is concerned that his infection will come back when he completes antibiotics and asked if he can be kept on it indefinitely. He recently had a CT scan of his foot also and these results were previously reviewed. He keeps walking on his foot in a steel toe boot 4 days a week and now refuses to wear his offloading wedge shoe because it makes him feel like he is falling. He is scheduled to get an offloading CAM Walker boot at the foot and ankle center but did not do this yet. He brought his shoe with gel sole liner today and is amendable to have a pocket cut out. He denies claudication with walking. He had vascular studies performed last February at an outside facility and these have been requested but not received yet. He denies fever, chill, nausea, vomiting, redness or odor. Progress of Wound: Courtesy visit for Dr. Plummer. Jose J is here for follow up of a chronic ulcer of his left plantar foot. The patient denies any fever, chills, nausea, vomiting, or diarrhea. Denies any increasing pain, redness, swelling, or purulent/malodorous drainage from affected area. - Physical Exam Vital Signs Temp Pulse Resp BP 99.1 F 97 18 150/81 H 04/13/20 10:00 04/13/20 10:00 04/13/20 10:00 04/13/20 10:00 General: Alert, Cooperative, No apparent distress HEENT: Atraumatic, Normocephalic Oral: Moist Mucosa Neck: Supple, Trachea Midline Lungs: Normal air movement Cardiovascular: Regular rate Extremities: No clubbing, No cyanosis, No edema, Peripheral Pulses Normal Skin: Ulcer/ Wound - Ulcer of left plantar foot the subcutaneous layer exposed. Large amounts of callus present. No periulcer warmth or tenderness. No purulent/malodorous drainage. Wound Measurements and Assessment WC - Nurse 1 - General Ulcer Measurement Start: 04/13/20 10:00 Freq: Status: Active Protocol: Activity Type Activity Date Activity User E-Sign Co-Sign Detail Recorded Client Recorded Date Recorded By Document 04/13/20 10:00 RB [id number] 04/13/20 10:06 RB 04/13/20 10:00 Wound Center Nurse 1 [Ulcer Assessment] #1- L LATERAL PLANTAR FOOT -Combined with other wound No -Current Size (cm) - Length 0.1 -Current Size (cm) - Width 0.1 -Current Size (cm) - Depth 0.1 -Total Square Cm 0.01 -Tunneling No -Undermining/Tunneling No -Circular Undermining No -Exudate Amt Small -Exudate Type Purulent -Wound Margin Thickened -Granulation Amt None Present (0 %) -Granulation Quality [place] -Slough/Fibrin Yes -Necrosis Amt Large (67-100%) -Necrotic Tissue Type Adherent Slough -Structure Exposed N/A -Texture (Flory-wound Skin Appearance) Assessed,Callus -Moisture (Flory-wound Skin Appearance Assessed ) -Color (Flory-wound Skin Appearance) Assessed -Temperature (Flory-wound Skin No Abnormality Appearance) (Pt Warm) -Tenderness on Palpation (Flory-wound No Skin Appearance) -Ulcer Cleansing Wound Cleanser -Foul Odor after Cleansing No -Anesthetic Used 5% Lidocaine Gel WC - Nurse 3 - General Ulcer D/C NN Start: 04/13/20 10:00 Freq: Status: Active Protocol: Activity Type Activity Date Activity User E-Sign Co-Sign Detail Recorded Client Recorded Date Recorded By Document 04/13/20 10:40 [email or web address] [email or web address] 04/13/20 10:41 [facility] 04/13/20 10:40 Wound Care Nurse 3 [Wound Dressing] -Ulcer Cleansing Rinsed/ Irrigated with Saline -Foul Odor after Cleansing No -Primary Dressing Applied Aquacel AG 4x4 -Primary Dressing Covered/Secured Dry Gauze & with Roll Gauze, Secured with Tape -Aquacel AG 4x4 1 [Post Procedure Tolerated] -Treatment Response Procedure Tolerated Well Pain Scale: 0-10 Numeric [Pain] -Is Patient Pain Free? Yes - Visit Discharge [Visit Discharge Information] -Discharge Condition Stable -Ambulatory Status Ambulatory -Transportation Private Auto -Accompanied by Debridement Note Post-Debridement Measurements/Treatment WC - Nurse 3 - General Ulcer D/C NN Start: 04/13/20 10:00 Freq: Status: Active Protocol: Activity Type Activity Date Activity User E-Sign Co-Sign Detail Recorded Client Recorded Date Recorded By Document 04/13/20 10:40 [email or web address] [email or web address] 04/13/20 10:41 [facility] 04/13/20 10:40 Wound Care Nurse 3 #1- L LATERAL PLANTAR FOOT -Ulcer Cleansing Rinsed/ Irrigated with Saline -Foul Odor after Cleansing No -Primary Dressing Applied Aquacel AG 4x4 -Primary Dressing Covered/Secured with Dry Gauze & Roll Gauze, Secured with Tape -Aquacel AG 4x4 1 Treatment Response Procedure Tolerated Well Pain Scale: 0-10 Numeric Is Patient Pain Free? Yes WC - Visit Discharge Discharge Condition Stable Ambulatory Status Ambulatory Transportation Private Auto Accompanied by Wound debrided: Left lateral plantar foot Laterality: Left Type of Debridement: Excisional debridement Anesthesia Used: 4% Lidocaine Solution Depth: in the subcutaneous layer Percentage of wound debrided: 100 Instrument Used: 3mm curette, 5mm curette, #15 blade, Forceps Tissue Removed: Callus, slough and devitalized tissue Severity: Fat Layer Exposed Amount of bleeding with debridement: Mild Bleeding Controlled with: Pressure Patient tolerated procedure well Assessment/Plan Assessment: left lateral plantar foot chronic ulcer. delayed healing. h/o infection and cellulitis. Foot deformity including hammertoe tailor bunion, left Plan: The patient was evaluated and debridement was performed in an excisional subcutaneous manner. He will continue on doxycycline. Stressed importance of offloading and work boot insole was modified and will continue to be used. Will continue to use Aquacel Ag and gauze for moderate/heavy drainage daily and will have him offload his foot as much as possible. His x-ray reports do not indicate acute osteomyelitis or other radiographic evidence of infection. His CT scan also was negative however it is noted that osteomyelitis cannot be fully ruled out with this diagnostic imaging study of choice. He has seen Dr. Camargo in consultation and treatment options below were discussed. It is noted this patient is not performing really any offloading. They are educated on the importance of this again today. He will likely not make progress if he continues to walk on his wound all day. He does not like his wedge offloading shoe. I offered him a cam walker boot with dual density Plastizote offloading liner pocket. He is scheduled to have this dispensed and fabricated at the foot and ankle center. The gel insole in his loafer shoe was modified today with an offloading pocket removed adjacent to the ulcer anatomic site. He understands this is not the recommended formidable offloading but will be better than not doing anything. He was advised to go nonweightbearing at home to alleviate pressure on the site. due to the recurrent and complicated healing course. A bone biopsy or simple resection of the fifth metatarsal head can be performed which is the gold standard confirming osteomyelitis and alleviating his foot deformity. He previously did not want to proceed forward with surgical intervention. He still is now hesitant to proceed forward at this time because he states he will not be able to stay off of his foot. He is concerned about losing his job. He relates he had noninvasive vascular arterial studies performed approximately in February of last year at an outside facility and he had normal perfusion. He did also have palpable pulses. Regardless his wound has been open for potentially over 1 year. Due to the prolonged healing of his wound/ulcer I feel that he would benefit from application of an advanced wound care skin substitute and without this treatment he is at high risk for losing his foot. This is medically necessary to salvage his limb. He will follow up in [address] Plummer or sooner if needed for any increased drainage, erythema or infection. Note: [employer] speech recognition certified medical transcriptionist software was used to create portions of this document. Sound-alike and misspelled words, as well as other certified medical transcriptionist errors may be contained in the documentation. [id number]: [id number] Cathleen subq tissue 20 sq cm/<
== END 2020-04-23 23:59 ==
LOC: WC 10:15
PROVIDERS: PCP Family Medicine; Referring Provider Family Medicine; Visit Provider Family Medicine
DX: L97.422 Non-pressure chronic ulcer of left heel and midfoot with fat layer exposed (principal); L02.612 Cutaneous abscess of left foot; M20.42 Other hammer toe(s) (acquired), left foot; M21.612 Bunion of left foot; I10 Essential (primary) hypertension; E78.5 Hyperlipidemia, unspecified; Z79.899 Other long term (current) drug therapy
CPT/HCPCS: 11042

== ENCOUNTER 2020-05-11 10:30 | Outpatient (RCR) | payer BC, SELFPAY ==
[2020-04-24 00:20] VITALS: BP 150/81; PULSE 97; RESP 18; TEMP 37.3
[2020-04-27 10:02] VITALS: BP 155/79; PULSE 79; RESP 18; TEMP 36.9; BMI 29.5
[2020-04-27 10:24] VITALS: BP 155/80
--- NOTE | 2020-04-27 13:34 | PCM.WC.PN ---
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 Status: Chronic Code(s): L97.522 - Non-pressure chronic ulcer of other part of left foot with fat layer exposed (2) Chronic ulcer of left foot with fat layer exposed Status: Chronic Code(s): L97.522 - Non-pressure chronic ulcer of other part of left foot with fat layer exposed (3) Delayed wound healing Status: Chronic Code(s): T14.8XXD - Other injury of unspecified body region, subsequent encounter Type of Wound Date of Service: 04/27/20 Chief Complaint: nonhealing wound left plantar foot History of Wound: Jose J is a 64 y/o gentleman that presents to the wound healing center for evaluation and treatment of a wound to his left plantar foot s/p I and D previously by his PCP, Dr. Giordano. He had a wound to this same area in February 2019 and was seen at [facility] and treated there for 9 weeks with Aquacel and was placed in a wedge shoe to offload his foot. He has undergone vascular testing that he reports was normal and had xrays which did not show osteomyelitis. 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 He and his did not want to do surgery. His wound closed and he was discharged from the facility at the end of March. He began developing pain prior to wound care center referral with swelling and went to see his primary care doctor in the recent setting who performed an I and D and had him do xrays to r/o osteomyelitis and performed a wound culture. He denies fever or chills or nausea but did have these last weekend before he was started on antibiotics. Recently he is growing out staph epidermidis and his responded well to doxycycline. His doxycycline course is scheduled to and within the next couple of days. His is concerned that his infection will come back when he completes antibiotics and asked if he can be kept on it indefinitely. He recently had a CT scan of his foot also and these results were previously reviewed. He keeps walking on his foot in a steel toe boot 4 days a week and now refuses to wear his offloading wedge shoe because it makes him feel like he is falling. He is scheduled to get an offloading CAM Walker boot at the foot and ankle center but did not do this yet. He brought his shoe with gel sole liner today and is amendable to have a pocket cut out. He denies claudication with walking. He had vascular studies performed last February at an outside facility and these have been requested but not received yet. He denies fever, chill, nausea, vomiting, redness or odor. Progress of Wound: Jose J is here for follow up of a chronic ulcer of his left plantar foot. There has been improvement. The patient denies any fever, chills, nausea, vomiting, or diarrhea. Denies any increasing pain, redness, swelling, or purulent/malodorous drainage from affected area. - Physical Exam Vital Signs Temp Pulse Resp BP 98.5 F 79 18 155/80 H 04/27/20 10:02 04/27/20 10:02 04/27/20 10:02 04/27/20 10:24 General: Alert, Oriented x3, Cooperative, No apparent distress HEENT: Atraumatic, Normocephalic Oral: Moist Mucosa Abdomen: Obese Extremities: No edema Skin: Ulcer/ Wound Wound Measurements and Assessment WC - Nurse 1 - General Ulcer Measurement Start: 04/27/20 10:02 Freq: Status: Active Protocol: Activity Type Activity Date Activity User E-Sign Co-Sign Detail Recorded Client Recorded Date Recorded By Document 04/27/20 10: GILLES [id number] 04/27/20 10:04 GILLES 04/27/20 10:02 Wound Center Nurse 1 [Ulcer Assessment] #1- L LATERAL PLANTAR FOOT -Combined with other wound No -Current Size (cm) - Length 0.1 -Current Size (cm) - Width 0.1 -Current Size (cm) - Depth 0.1 -Total Square Cm 0.01 -Tunneling No -Undermining/Tunneling No -Circular Undermining No -Exudate Amt None Present -Wound Margin Flat & Intact -Granulation Amt Small (1-33%) -Granulation Quality Col[place]idge -Slough/Fibrin Yes -Necrosis Amt Medium (34-66%) -Necrotic Tissue Type Adherent Slough -Structure Exposed N/A -Texture (Flory-wound Skin Appearance) Assessed -Moisture (Flory-wound Skin Appearance Dry/Scaly ) -Color (Flory-wound Skin Appearance) Assessed -Temperature (Flory-wound Skin No Abnormality Appearance) (Pt Warm) -Tenderness on Palpation (Flory-wound No Skin Appearance) -Ulcer Cleansing Wound Cleanser -Foul Odor after Cleansing No -Anesthetic Used 4% Lidocaine Solution [Edema Assessment] -Lower Limb Edema Present Yes -Right Calf (cm) 35.2 -Right Ankle (cm) 22 WC - Nurse 2 - General Ulcer CM Notes Start: 04/27/20 10:02 Freq: Status: Active Protocol: Activity Type Activity Date Activity User E-Sign Co-Sign Detail Recorded Client Recorded Date Recorded By Document 04/27/20 10:09 MW [id number] 04/27/20 10:19 MW 04/27/20 10:09 Wound Center Nurse 2 [Procedure/Treatment] #1- L LATERAL PLANTAR FOOT -Time 10:13 -Correct Patient Yes -Correct Side, Site, Position Yes -Correct Procedure Yes -Procedure Performed Yes -Type of Procedure Debridement -Clinical Debridement Subcutaneous -Tissue Removed Subcutaneous -Post Debridement (cm) - Length 0.5 -Post Debridement (cm) - Width 0.4 -Post Debridement (cm) - Depth 0.1 -Total Square (Post) (cm) 0.20 -Area of Debridement (cm) - Length 0.5 -Area of Debridement (cm) - Width 0.4 -Total Square (Area) (cm) 0.20 -Tunneling No -Undermining/Tunneling No -Circular Undermining No -Wound/Ulcer Outcome Not Healed -Ulcer Cleansing Rinsed/ Irrigated with Saline -Foul Odor after Cleansing No -Bioengineered Tissue No -Bleeding Controlled with Pressure -Offloading No -Treatment Response Procedure Tolerated Well -Debridement - Subq, 1st 20sq cm Yes [See Physician Procedure note for Specifics] Pain Scale: 0-10 Numeric [Pain] -Is Patient Pain Free? Yes - Nurse 3 - General Ulcer D/C NN Start: 04/27/20 10:02 Freq: Status: Active Protocol: Activity Type Activity Date Activity User E-Sign Co-Sign Detail Recorded Client Recorded Date Recorded By Document 04/27/20 10:24 RB [id number] 04/27/20 10:25 RB 04/27/20 10:24 Wound Care Nurse 3 [Wound Dressing] #1- L LATERAL PLANTAR FOOT -Ulcer Cleansing Rinsed/ Irrigated with Saline -Other Dressing aquacel ag -Primary Dressing Covered/Secured Dry Gauze,Dry with Gauze & Roll Gauze,Secured with Tape Vital Signs [Blood Pressure] -Blood Pressure (90/60-120/80) 155/80 H -Blood Pressure Mean (mm Hg) 105 -Source Monitor -Position Semi-Fowlers -Blood Pressure Location Left Arm Pain Scale: 0-10 Numeric [Pain] -Is Patient Pain Free? Yes - Visit Discharge [Visit Discharge Information] -Discharge Condition Stable -Ambulatory Status Ambulatory -Transportation Private Auto -Medication Reconcilliation completed No & provided to patient/care provider -Clinical Summary of Care Provided Yes Psych/Mental Status: Normal Affect, Appropriate Debridement Note Post-Debridement Measurements/Treatment - Nurse 2 - General Ulcer CM Notes Start: 04/27/20 10:02 Freq: Status: Active Protocol: Activity Type Activity Date Activity User E-Sign Co-Sign Detail Recorded Client Recorded Date Recorded By Document 04/27/20 10:09 MW [id number] 04/27/20 10:19 MW 04/27/20 10:09 Wound Center Nurse 2 #1- L LATERAL PLANTAR FOOT -Time 10:13 -Correct Patient Yes -Correct Side, Site, Position Yes -Correct Procedure Yes -Procedure Performed Yes -Type of Procedure Debridement -Clinical Debridement Subcutaneous -Tissue Removed Subcutaneous -Post Debridement (cm) - Length 0.5 -Post Debridement (cm) - Width 0.4 -Post Debridement (cm) - Depth 0.1 -Total Square (Post) (cm) 0.20 -Area of Debridement (cm) - Length 0.5 -Area of Debridement (cm) - Width 0.4 -Total Square (Area) (cm) 0.20 -Tunneling No -Undermining/Tunneling No -Circular Undermining No -Wound/Ulcer Outcome Not Healed -Ulcer Cleansing Rinsed/ Irrigated with Saline -Foul Odor after Cleansing No -Bioengineered Tissue No -Bleeding Controlled with Pressure -Offloading No -Treatment Response Procedure Tolerated Well -Debridement - Subq, 1st 20sq cm Yes Pain Scale: 0-10 Numeric Is Patient Pain Free? Yes - Nurse 3 - General Ulcer D/C NN Start: 04/27/20 10:02 Freq: Status: Active Protocol: Activity Type Activity Date Activity User E-Sign Co-Sign Detail Recorded Client Recorded Date Recorded By Document 04/27/20 10:24 RB [id number] 04/27/20 10:25 RB 04/27/20 10:24 Wound Care Nurse 3 #1- L LATERAL PLANTAR FOOT -Ulcer Cleansing Rinsed/ Irrigated with Saline -Other Dressing aquacel ag -Primary Dressing Covered/Secured with Dry Gauze,Dry Gauze & Roll Gauze,Secured with Tape Vital Signs Blood Pressure (90/60-120/80) 155/80 H Blood Pressure Mean (mm Hg) 105 Source Monitor Position Semi-Fowlers Blood Pressure Location Left Arm Pain Scale: 0-10 Numeric Is Patient Pain Free? Yes WC - Visit Discharge Discharge Condition Stable Ambulatory Status Ambulatory Transportation Private Auto Medication Reconcilliation completed & No provided to patient/care provider Clinical Summary of Care Provided Yes Wound debrided: left lateral plantar foot Laterality: Left Type of Debridement: Excisional debridement Anesthesia Used: 4% Lidocaine Solution Depth: Down to and including healthy tissue, in the subcutaneous layer Percentage of wound debrided: 100 Instrument Used: #15 blade, Forceps Tissue Removed: Yellow slough, devitalized tissue Severity: Fat Layer Exposed Amount of bleeding with debridement: Mild Bleeding Controlled with: Compression and gauze Patient tolerated procedure well Assessment/Plan Assessment: left lateral plantar foot chronic ulcer. delayed healing. h/o infection and cellulitis. Foot deformity including hammertoe tailor bunion, left Plan: The patient was evaluated and debridement was performed in an excisional subcutaneous manner. He will continue on doxycycline. Stressed importance of offloading and work boot insole was modified and will continue to be used. Will continue to use Aquacel Ag and gauze for moderate/heavy drainage daily and will have him offload his foot as much as possible. His x-ray reports do not indicate acute osteomyelitis or other radiographic evidence of infection. His CT scan also was negative however it is noted that osteomyelitis cannot be fully ruled out with this diagnostic imaging study of choice. He has seen Dr. Camargo in consultation and treatment options below were discussed. It is noted this patient is not performing really any offloading. They are educated on the importance of this again today. He will likely not make progress if he continues to walk on his wound all day. He does not like his wedge offloading shoe. I offered him a cam walker boot with dual density Plastizote offloading liner pocket. He is scheduled to have this dispensed and fabricated at the foot and ankle center. The gel insole in his loafer shoe was modified today with an offloading pocket removed adjacent to the ulcer anatomic site. He understands this is not the recommended formidable offloading but will be better than not doing anything. He was advised to go nonweightbearing at home to alleviate pressure on the site. due to the recurrent and complicated healing course. A bone biopsy or simple resection of the fifth metatarsal head can be performed which is the gold standard confirming osteomyelitis and alleviating his foot deformity. He previously did not want to proceed forward with surgical intervention. He still is now hesitant to proceed forward at this time because he states he will not be able to stay off of his foot. He is concerned about losing his job. He relates he had noninvasive vascular arterial studies performed approximately in February of last year at an outside facility and he had normal perfusion. He did also have palpable pulses. Regardless his wound has been open for potentially over 1 year. Due to the prolonged healing of his wound/ulcer I feel that he would benefit from application of an advanced wound care skin substitute and without this treatment he is at high risk for losing his foot. This is medically necessary to salvage his limb. He will follow up in [address] Plummer or sooner if needed for any increased drainage, erythema or infection. Note: [employer] speech recognition burglar alarm assembler software was used to create portions of this document. Sound-alike and misspelled words, as well as other burglar alarm assembler errors may be contained in the documentation.
[2020-05-11 10:42] VITALS: BP 130/74; PULSE 78; RESP 18; TEMP 36.6; BMI 29.5
--- NOTE | 2020-05-11 14:06 | PN.PCM_ITS ---
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 Status: Chronic Code(s): L97.522 - Non-pressure chronic ulcer of other part of left foot with fat layer exposed (2) Chronic ulcer of left foot with fat layer exposed Status: Chronic Code(s): L97.522 - Non-pressure chronic ulcer of other part of left foot with fat layer exposed (3) Delayed wound healing Status: Chronic Code(s): T14.8XXD - Other injury of unspecified body region, subsequent encounter Type of Wound Date of Service: 05/11/20 Chief Complaint: nonhealing wound left plantar foot History of Wound: Jose J is a 64 y/o gentleman that presents to the wound healing center for evaluation and treatment of a wound to his left plantar foot s/p I and D previously by his PCP, Dr. Giordano. He had a wound to this same area in February 2019 and was seen at [facility] and treated there for 9 weeks with Aquacel and was placed in a wedge shoe to offload his foot. He has undergone vascular testing that he reports was normal and had xrays which did not show osteomyelitis. 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 He and his did not want to do surgery. His wound closed and he was discharged from the facility at the end of March. He began developing pain prior to wound care center referral with swelling and went to see his primary care doctor in the recent setting who performed an I and D and had him do xrays to r/o osteomyelitis and performed a wound culture. He denies fever or chills or nausea but did have these last weekend before he was started on antibiotics. Recently he is growing out staph epidermidis and his responded well to doxycycline. His doxycycline course is scheduled to and within the next couple of days. His is concerned that his infection will come back when he completes antibiotics and asked if he can be kept on it indefinitely. He recently had a CT scan of his foot also and these results were previously reviewed. He keeps walking on his foot in a steel toe boot 4 days a week and now refuses to wear his offloading wedge shoe because it makes him feel like he is falling. He is scheduled to get an offloading CAM Walker boot at the foot and ankle center but did not do this yet. He brought his shoe with gel sole liner today and is amendable to have a pocket cut out. He denies claudication with walking. He had vascular studies performed last February at an outside facility and these have been requested but not received yet. He denies fever, chill, nausea, vomiting, redness or odor. Progress of Wound: Jose J is here for follow up of a chronic ulcer of his left plantar foot. There has been improvement and it appears to be healed. Denies any increasing pain, redness, swelling, or purulent/malodorous drainage from affected area. - Physical Exam Vital Signs Temp Pulse Resp BP 97.8 F 78 18 130/74 H 05/11/20 10:42 05/11/20 10:42 05/11/20 10:42 05/11/20 10:42 General: Alert, Oriented x3, Cooperative, No apparent distress HEENT: Atraumatic, Normocephalic Oral: Moist Mucosa Abdomen: Obese Extremities: No edema Skin: Ulcer/ Wound Wound Measurements and Assessment WC - Nurse 1 - General Ulcer Measurement Start: 04/27/20 10:02 Freq: Status: Active Protocol: Activity Type Activity Date Activity User E-Sign Co-Sign Detail Recorded Client Recorded Date Recorded By Document 05/11/20 10:42 [id number] 05/11/20 10:45 RB 05/11/20 10:42 Wound Center Nurse 1 [Ulcer Assessment] #1- L LATERAL PLANTAR FOOT -Combined with other wound No -Current Size (cm) - Length 0.1 -Current Size (cm) - Width 0.1 -Current Size (cm) - Depth 0.1 -Total Square Cm 0.01 -Tunneling No -Undermining/Tunneling No -Circular Undermining No -Exudate Amt None Present -Wound Margin Flat & Intact -Granulation Amt Medium (34-66%) -Granulation Quality [place] -Slough/Fibrin Yes -Necrosis Amt Small (1-33%) -Necrotic Tissue Type Adherent Slough -Structure Exposed N/A -Texture (Flory-wound Skin Appearance) Assessed,Callus -Moisture (Flory-wound Skin Appearance Assessed ) -Color (Flory-wound Skin Appearance) Assessed -Temperature (Flory-wound Skin No Abnormality Appearance) (Pt Warm) -Tenderness on Palpation (Flory-wound No Skin Appearance) -Ulcer Cleansing Wound Cleanser -Foul Odor after Cleansing No -Anesthetic Used 5% Lidocaine Gel WC - Nurse 2 - General Ulcer CM Notes Start: 04/27/20 10:02 Freq: Status: Active Protocol: Activity Type Activity Date Activity User E-Sign Co-Sign Detail Recorded Client Recorded Date Recorded By Document 05/11/20 11:47 MW [id number] 05/11/20 11:57 MW 05/11/20 11:47 Wound Center Nurse 2 [Procedure/Treatment] -Time 11:48 -Correct Patient Yes -Correct Side, Site, Position Yes -Correct Procedure Yes -Procedure Performed No -Post Debridement (cm) - Length 0 -Post Debridement (cm) - Width 0 -Post Debridement (cm) - Depth 0 -Total Square (Post) (cm) 0 -Wound/Ulcer Outcome Healed- Epithelialized -Ulcer Cleansing Rinsed/ Irrigated with Saline -Bleeding Controlled with NA [See Physician Procedure note for Specifics] Pain Scale: 0-10 Numeric [Pain] -Is Patient Pain Free? Yes - Nurse 3 - General Ulcer D/C NN Start: 04/27/20 10:02 Freq: Status: Active Protocol: Activity Type Activity Date Activity User E-Sign Co-Sign Detail Recorded Client Recorded Date Recorded By Document 05/11/20 12:02 MW [id number] 05/11/20 12:04 MW 05/11/20 12:02 Wound Care Nurse 3 [Wound Dressing] #1- L LATERAL PLANTAR FOOT -Ulcer Cleansing Not Cleansed -Foul Odor after Cleansing No -Negative Pressure Wound Therapy N/A -Primary Dressing Covered/Secured Dry Gauze & with Roll Gauze, Secured with Tape -Aquacel AG 4x4 1 [Post Procedure Tolerated] -Treatment Response Procedure Tolerated Well Teaching: Wound Center [Wound Center Education] (Items with an * have Printed Materials Available- Please identify what is given to patient under the Teaching materials given to patient and caregiver Section. Dressing Your Wound -Person Taught Patient,Family -Teaching Method Discussion -Response to teaching Verbalize understanding WC - Visit Discharge [Visit Discharge Information] -Discharge Condition Stable -Ambulatory Status Ambulatory -Transportation Private Auto -Accompanied by -Medication Reconcilliation completed No & provided to patient/care provider -Clinical Summary of Care Provided Yes -Notes: Dry dressing applied today to left lateral healed ulcer. instructed to apply aquacel ag as needed if ulcer opens. Voiced understanding. Psych/Mental Status: Normal Affect, Appropriate Debridement Note Post-Debridement Measurements/Treatment WC - Nurse 2 - General Ulcer CM Notes Start: 04/27/20 10:02 Freq: Status: Active Protocol: Activity Type Activity Date Activity User E-Sign Co-Sign Detail Recorded Client Recorded Date Recorded By Document 04/27/20 10:09 MW [id number] 04/27/20 10:19 MW Document 05/11/20 11:47 MW [id number] 05/11/20 11:57 MW 04/27/20 05/11/20 10:09 11:47 Wound Center Nurse 2 #1- L LATERAL PLANTAR FOOT -Time 10:13 11:48 -Correct Patient Yes Yes -Correct Side, Site, Position Yes Yes -Correct Procedure Yes Yes -Procedure Performed Yes No -Type of Procedure Debridement -Clinical Debridement Subcutaneous -Tissue Removed Subcutaneous -Post Debridement (cm) - Length 0.5 0 -Post Debridement (cm) - Width 0.4 0 -Post Debridement (cm) - Depth 0.1 0 -Total Square (Post) (cm) 0.20 0 -Area of Debridement (cm) - Length 0.5 -Area of Debridement (cm) - Width 0.4 -Total Square (Area) (cm) 0.20 -Tunneling No -Undermining/Tunneling No -Circular Undermining No -Wound/Ulcer Outcome Not Healed Healed- Epithelialized -Ulcer Cleansing Rinsed/ Rinsed/ Irrigated with Irrigated with Saline Saline -Foul Odor after Cleansing No -Bioengineered Tissue No -Bleeding Controlled with Pressure NA -Offloading No -Treatment Response Procedure Tolerated Well -Debridement - Subq, 1st 20sq cm Yes Pain Scale: 0-10 Numeric Is Patient Pain Free? Yes Yes QUOC - Nurse 3 - General Ulcer D/C NN Start: 04/27/20 10:02 Freq: Status: Active Protocol: Activity Type Activity Date Activity User E-Sign Co-Sign Detail Recorded Client Recorded Date Recorded By Document 04/27/20 10:24 RB [id number] 04/27/20 10:25 RB Document 05/11/20 12:02 MW [id number] 05/11/20 12:04 MW 04/27/20 05/11/20 10:24 12:02 Wound Care Nurse 3 #1- L LATERAL PLANTAR FOOT -Ulcer Cleansing Rinsed/ Not Cleansed Irrigated with Saline -Foul Odor after Cleansing No -Negative Pressure Wound Therapy N/A -Other Dressing aquacel ag -Primary Dressing Covered/Secured with Dry Gauze,Dry Dry Gauze & Gauze & Roll Roll Gauze, Gauze,Secured Secured with with Tape Tape -Aquacel AG 4x4 1 Treatment Response Procedure Tolerated Well Vital Signs Blood Pressure (90/60-120/80) 155/80 H Blood Pressure Mean (mm Hg) 105 Source Monitor Position Semi-Fowlers Blood Pressure Location Left Arm Pain Scale: 0-10 Numeric Is Patient Pain Free? Yes Teaching: Wound Center Dressing Your Wound -Person Taught Patient,Family -Teaching Method Discussion -Response to teaching Verbalize understanding WC - Visit Discharge Discharge Condition Stable Stable Ambulatory Status Ambulatory Ambulatory Transportation Private Auto Private Auto Accompanied by Medication Reconcilliation completed & No No provided to patient/care provider Clinical Summary of Care Provided Yes Yes Notes: Dry dressing applied today to left lateral healed ulcer. instructed to apply aquacel ag as needed if ulcer opens. Voiced understanding. 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 delayed healing. h/o infection and cellulitis. Foot deformity including hammertoe tailor bunion, left Plan: The patient was evaluated and selective debridement of callous was performed. He will continue on doxycycline for the next 2 weeks. Stressed importance of offloading and work boot insole was modified and will continue to be used. Will continue to use Aquacel Ag and gauze for the next several days. His x-ray reports do not indicate acute osteomyelitis or other radiographic evidence of infection. His CT scan also was negative however it is noted that osteomyelitis cannot be fully ruled out with this diagnostic imaging study of choice. He has seen Dr. Camargo in consultation and treatment options below were discussed. It is noted this patient is not performing really any offloading. They are educated on the importance of this again today. He will likely not make progress if he continues to walk on his wound all day. He does not like his wedge offloading shoe. I offered him a cam walker boot with dual density Plastizote offloading liner pocket. He is scheduled to have this dispensed and fabricated at the foot and ankle center. The gel insole in his loafer shoe was modified today with an offloading pocket removed adjacent to the ulcer anatomic site. He understands this is not the recommended formidable offloading but will be better than not doing anything. He was advised to go nonweightbearing at home to alleviate pressure on the site. due to the recurrent and complicated healing course. A bone biopsy or simple resection of the fifth metatarsal head can be performed which is the gold standard confirming osteomyelitis and alleviating his foot deformity. He previously did not want to proceed forward with surgical intervention. He still is now hesitant to proceed forward at this time because he states he will not be able to stay off of his foot. He is concerned about losing his job. He relates he had noninvasive vascular arterial studies performed approximately in February of last year at an outside facility and he had normal perfusion. He did also have palpable pulses. Regardless his wound has been open for potentially over 1 year. Due to the prolonged healing of his wound/ulcer I feel that he would benefit from application of an advanced wound care skin substitute and without this treatment he is at high risk for losing his foot. This is medically necessary to salvage his limb. He will follow up in [address] Plummer or sooner if needed for any increased drainage, erythema or infection. Note: [employer] speech recognition executive producer promos software was used to create portions of this document. Sound-alike and misspelled words, as well as other executive producer promos errors may be contained in the documentation.
== END 2020-05-24 23:59 ==
LOC: WC 10:30
PROVIDERS: PCP Family Medicine; Referring Provider Family Medicine; Visit Provider Family Medicine
DX: L97.522 Non-pressure chronic ulcer of other part of left foot with fat layer exposed (principal); M21.612 Bunion of left foot; M20.42 Other hammer toe(s) (acquired), left foot; Z79.899 Other long term (current) drug therapy
CPT/HCPCS: 11042; 99213; G0463

== ENCOUNTER 2020-06-01 10:30 | Outpatient (RCR) | payer BC, SELFPAY ==
[2020-05-25 00:18] VITALS: BP 130/74; PULSE 78; RESP 18; TEMP 36.6
[2020-06-01 10:16] VITALS: BP 177/66; PULSE 83; RESP 18; TEMP 36.8; BMI 29.5
--- NOTE | 2020-06-01 13:31 | PCM.WC.PN ---
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 Status: Chronic Code(s): L97.522 - Non-pressure chronic ulcer of other part of left foot with fat layer exposed (2) Chronic ulcer of left foot with fat layer exposed Status: Chronic Code(s): L97.522 - Non-pressure chronic ulcer of other part of left foot with fat layer exposed (3) Delayed wound healing Status: Chronic Code(s): T14.8XXD - Other injury of unspecified body region, subsequent encounter Type of Wound Date of Service: 06/01/20 Chief Complaint: nonhealing wound left plantar foot History of Wound: Jose J is a 64 y/o gentleman that presents to the wound healing center for evaluation and treatment of a wound to his left plantar foot s/p I and D previously by his PCP, Dr. Giordano. He had a wound to this same area in February 2019 and was seen at [facility] and treated there for 9 weeks with Aquacel and was placed in a wedge shoe to offload his foot. He has undergone vascular testing that he reports was normal and had xrays which did not show osteomyelitis. 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 He and his did not want to do surgery. His wound closed and he was discharged from the facility at the end of March. He began developing pain prior to wound care center referral with swelling and went to see his primary care doctor in the recent setting who performed an I and D and had him do xrays to r/o osteomyelitis and performed a wound culture. He denies fever or chills or nausea but did have these last weekend before he was started on antibiotics. Recently he is growing out staph epidermidis and his responded well to doxycycline. His doxycycline course is scheduled to and within the next couple of days. His is concerned that his infection will come back when he completes antibiotics and asked if he can be kept on it indefinitely. He recently had a CT scan of his foot also and these results were previously reviewed. He keeps walking on his foot in a steel toe boot 4 days a week and now refuses to wear his offloading wedge shoe because it makes him feel like he is falling. He is scheduled to get an offloading CAM Walker boot at the foot and ankle center but did not do this yet. He brought his shoe with gel sole liner today and is amendable to have a pocket cut out. He denies claudication with walking. He had vascular studies performed last February at an outside facility and these have been requested but not received yet. He denies fever, chill, nausea, vomiting, redness or odor. Progress of Wound: Jose J is here for follow up of a chronic ulcer of his left plantar foot. His ulcer remains healed. Denies any increasing pain, redness, swelling, or purulent/malodorous drainage from affected area. - Physical Exam Vital Signs Temp Pulse Resp BP 98.2 F 83 18 177/66 H 06/01/20 10:16 06/01/20 10:16 06/01/20 10:16 06/01/20 10:16 General: Alert, Oriented x3, Cooperative, No apparent distress HEENT: Atraumatic, Normocephalic Oral: Moist Mucosa Abdomen: Soft, Non Tender, Obese Extremities: No edema Skin: Ulcer/ Wound Wound Measurements and Assessment WC - Nurse 1 - General Ulcer Measurement Start: 06/01/20 10:16 Freq: Status: Discharge Protocol: Activity Type Activity Date Activity User E-Sign Co-Sign Detail Recorded Client Recorded Date Recorded By Document 06/01/20 10:16 LASHAY [id number] 06/01/20 10:22 LASHAY Edit Status 06/01/20 10:52 BOLA IBRAHIM Active=>Discharge [id number] 06/01/20 10:52 BOLA IBRAHIM 06/01/20 10:16 Wound Center Nurse 1 [Ulcer Assessment] #1- L LATERAL PLANTAR FOOT -Current Size (cm) - Length 0 -Current Size (cm) - Width 0 -Current Size (cm) - Depth 0 -Total Square Cm 0 -Photo Taken Yes -Exudate Amt None Present -Wound Margin Thickened -Granulation Amt Large (67-100%) -Granulation Quality Pale -Necrosis Amt Small (1-33%) -Necrotic Tissue Type Adherent Slough -Structure Exposed N/A -Texture (Flory-wound Skin Appearance) Callus -Moisture (Flory-wound Skin Appearance Dry/Scaly ) -Color (Flory-wound Skin Appearance) No Abnormality -Temperature (Flory-wound Skin No Abnormality Appearance) (Pt Warm) -Tenderness on Palpation (Flory-wound No Skin Appearance) -Ulcer Cleansing Rinsed/ Irrigated with Saline -Foul Odor after Cleansing No -Anesthetic Used 4% Lidocaine Solution - Nurse 2 - General Ulcer CM Notes Start: 06/01/20 10:16 Freq: Status: Discharge Protocol: Activity Type Activity Date Activity User E-Sign Co-Sign Detail Recorded Client Recorded Date Recorded By Document 06/01/20 10:28 MW [id number] 06/01/20 10:39 MW Edit Status 06/01/20 10:52 [facility] DAEMON [facility] 10:52 ROMANA DAEMI 06/01/20 10:28 Wound Center Nurse 2 [Procedure/Treatment] -Time 10:36 -Correct Patient Yes -Correct Side, Site, Position Yes -Correct Procedure Yes -Procedure Performed No -Post Debridement (cm) - Length 0 -Post Debridement (cm) - Width 0 -Post Debridement (cm) - Depth 0 -Total Square (Post) (cm) 0 -Wound/Ulcer Outcome Healed- Epithelialized [See Physician Procedure note for Specifics] Pain Scale: 0-10 Numeric [Pain] -Is Patient Pain Free? Yes - Nurse 3 - General Ulcer D/C NN Start: 06/01/20 10:16 Freq: Status: Discharge Protocol: Activity Type Activity Date Activity User E-Sign Co-Sign Detail Recorded Client Recorded Date Recorded By Document 06/01/20 10:39 MW [id number] 06/01/20 10:39 MW Edit Status 06/01/20 10:52 [facility]A DAEMI [facility] 10:52 ROMANAG DAEMON 06/01/20 10:39 Wound Care Nurse 3 [Post Procedure Tolerated] -Treatment Response Procedure Tolerated Well Teaching: Wound Center [Wound Center Education] (Items with an * have Printed Materials Available- Please identify what is given to patient under the Teaching materials given to patient and caregiver Section. Discharge Instructions -Person Taught Patient,Family -Teaching Method Discussion -Response to teaching Verbalize understanding WC - Visit Discharge [Visit Discharge Information] -Discharge Condition Stable -Ambulatory Status Ambulatory -Transportation Private Auto -Accompanied by -Medication Reconcilliation completed No & provided to patient/care provider -Clinical Summary of Care Provided Yes -Notes: healed, discharged Psych/Mental Status: Normal Affect, Appropriate Debridement Note Post-Debridement Measurements/Treatment WC - Nurse 2 - General Ulcer CM Notes Start: 06/01/20 10:16 Freq: Status: Discharge Protocol: Activity Type Activity Date Activity User E-Sign Co-Sign Detail Recorded Client Recorded Date Recorded By Document 06/01/20 10:28 MW [id number] 06/01/20 10:39 MW 06/01/20 10:28 Wound Center Nurse 2 #1- L LATERAL PLANTAR FOOT -Time 10:36 -Correct Patient Yes -Correct Side, Site, Position Yes -Correct Procedure Yes -Procedure Performed No -Post Debridement (cm) - Length 0 -Post Debridement (cm) - Width 0 -Post Debridement (cm) - Depth 0 -Total Square (Post) (cm) 0 -Wound/Ulcer Outcome Healed- Epithelialized Pain Scale: 0-10 Numeric Is Patient Pain Free? Yes WC - Nurse 3 - General Ulcer D/C NN Start: 06/01/20 10:16 Freq: Status: Discharge Protocol: Activity Type Activity Date Activity User E-Sign Co-Sign Detail Recorded Client Recorded Date Recorded By Document 06/01/20 10:39 MW [id number] 06/01/20 10:39 MW 06/01/20 10:39 Wound Care Nurse 3 Treatment Response Procedure Tolerated Well Teaching: Wound Center Discharge Instructions -Person Taught Patient,Family -Teaching Method Discussion -Response to teaching Verbalize understanding WC - Visit Discharge Discharge Condition Stable Ambulatory Status Ambulatory Transportation Private Auto Accompanied by Medication Reconcilliation completed & No provided to patient/care provider Clinical Summary of Care Provided Yes Notes: healed, discharged Wound debrided: left lateral Laterality: Left Type of Debridement: Selective debridement Depth: Down to and including healthy tissue Percentage of wound debrided: 100 Instrument Used: 5mm curette Tissue Removed: devitalized tissue, callus Amount of bleeding with debridement: None Patient tolerated procedure well Assessment/Plan Active Problems 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 delayed healing. h/o infection and cellulitis. Foot deformity including hammertoe tailor bunion, left Plan: The patient was evaluated and selective debridement of callous was performed. His wound/ulcer remains healed. Stressed importance of offloading and work boot insole was modified and encouraged for him to continue to use. His x-ray reports do not indicate acute osteomyelitis or other radiographic evidence of infection. His CT scan also was negative however it is noted that osteomyelitis cannot be fully ruled out with this diagnostic imaging study of choice. He has seen Dr. Camargo in consultation and treatment options below were discussed. It is noted this patient is not performing really any offloading. They are educated on the importance of this again today. He will likely not make progress if he continues to walk on his wound all day. He does not like his wedge offloading shoe. I offered him a cam walker boot with dual density Plastizote offloading liner pocket. He is scheduled to have this dispensed and fabricated at the foot and ankle center. The gel insole in his loafer shoe was modified today with an offloading pocket removed adjacent to the ulcer anatomic site. He understands this is not the recommended formidable offloading but will be better than not doing anything. He was advised to go nonweightbearing at home to alleviate pressure on the site. due to the recurrent and complicated healing course. A bone biopsy or simple resection of the fifth metatarsal head can be performed which is the gold standard confirming osteomyelitis and alleviating his foot deformity. He previously did not want to proceed forward with surgical intervention. He still is now hesitant to proceed forward at this time because he states he will not be able to stay off of his foot. He is concerned about losing his job. He relates he had noninvasive vascular arterial studies performed approximately in February of last year at an outside facility and he had normal perfusion. He did also have palpable pulses. Regardless his wound has been open for potentially over 1 year. Due to the prolonged healing of his wound/ulcer I feel that he would benefit from application of an advanced wound care skin substitute and without this treatment he is at high risk for losing his foot. This is medically necessary to salvage his limb. He will be discharged at this time. Note: [employer] ([employer]) speech recognition marketing traffic coordinator software was used to create portions of this document. Sound-alike and misspelled words, as well as other marketing traffic coordinator errors may be contained in the documentation.
== END 2020-06-01 10:51 | disposition home or self-care (01) ==
LOC: WC 10:30
PROVIDERS: PCP Family Medicine; Referring Provider Family Medicine; Visit Provider Family Medicine
DX: M21.612 Bunion of left foot (principal); Z79.899 Other long term (current) drug therapy
CPT/HCPCS: 99212; G0463

== ENCOUNTER 2020-09-21 09:00 | Outpatient (RCR) | payer BC, SELFPAY ==
[2020-09-07 09:00] VITALS: BP 141/73; PULSE 75; RESP 18; TEMP 36.8; BMI 29.2
[2020-09-07 10:00] VITALS: BP 140/72
--- NOTE | 2020-09-07 13:04 | PCM.WC.HP ---
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 Status: Chronic Code(s): L97.522 - Non-pressure chronic ulcer of other part of left foot with fat layer exposed (3) Chronic ulcer of left foot with fat layer exposed Status: Chronic Code(s): L97.522 - Non-pressure chronic ulcer of other part of left foot with fat layer exposed (4) Delayed wound healing Status: Chronic Code(s): T14.8XXD - Other injury of unspecified body region, subsequent encounter History of Present Illness Date of Service: 09/07/20 Chief Complaint: nonhealing wound left plantar foot History of Wound: Jose J is a 65 y/o gentleman that presents to the wound healing center for evaluation and treatment of a wound to his left plantar foot. He is a patient of Dr. Giordano. He has had a wound to this same area in February 2019 and was seen at [facility] [place] and treated there for 9 weeks with Aquacel and was placed in a wedge shoe to offload his foot. He was treated for this same wound for almost a year at this wound center and was healed in May 2020. He has undergone vascular testing at [facility] in 2018. 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 He and his did not want to do surgery. He began developing pain and callous and moderate to heavy drainage at the end of June. His has been dressing the wound with Aquacel for the last several weeks as that was what he was treated with previously. He had a prescription for doxycycline that he started when it was draining. He denies fever or chills or nausea. He had a CT scan last year of his foot also and these results were previously reviewed and do not show osteomyelitis. He keeps walking on his foot in a steel toe boot 4-5 days a week. He had an offloading pad in his work boot but has not changed that since being discharged in May. He denies claudication with walking. He had vascular studies performed last February at an outside facility and these have been requested but never received. He denies fever, chill, nausea, vomiting, redness or odor. 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) Allergies/Adverse Reactions: Allergies Penicillins [PCN] Allergy (Verified 07/22/19 13:10) Other Home Medications: Ambulatory Orders Medication Instructions Recorded Ibuprofen [Advil] 600 mg PO DAILY PRN 07/22/19 Lisinopril mg PO DAILY 07/22/19 Simvastatin [Zocor] mg PO QHS 07/22/19 Smz/Tmp Ds [Bactrim Ds] 1 tab PO BID 07/22/19 Lives: Spouse/ Significant Other Smoking Status: Former smoker Tobacco Use: Non-smoker Alcohol: None Drugs: None Review of Systems Constitutional: Denies: Chills, Fever, Weight Change Eyes: Denies: Pain, Vision Change HEENT: Denies: Difficulty Hearing, Difficulty Swallowing, Sinus Congestion Cardiovascular: Denies: Chest Pain, Palpitations Respiratory: Denies: Cough, Shortness of Breath Gastrointestinal: Denies: Diarrhea, Nausea, Vomiting Genitourinary: Denies: Dysuria, Hematuria Musculoskeletal: Reports: Joint Pain Skin: Reports: Wounds Endocrine: Denies: Heat/ Cold Intolerance, Polydipsia, Polyuria Hematologic/ Lymphatic: Denies: Easy Bruising, Easy Bleeding - Physical Exam Vital Signs Temp Pulse Resp BP 98.2 F 75 18 140/72 H 09/07/20 09:00 09/07/20 09:00 09/07/20 09:00 09/07/20 10:00 General: Alert, Oriented x3, Cooperative, No apparent distress HEENT: Atraumatic, Normocephalic Oral: Moist Mucosa Neck: Supple Lungs: Clear to auscultation, Normal air movement Cardiovascular: Regular rate, Regular Rhythm Abdomen: Soft, Non Tender, Obese Extremities: No edema Skin: Ulcer/ Wound Wound Measurements and Assessment WC - Nurse 1 - General Ulcer Measurement Start: 09/07/20 08:59 Freq: Status: Active Protocol: Activity Type Activity Date Activity User E-Sign Co-Sign Detail Recorded Client Recorded Date Recorded By Document 09/07/20 09:00 RB [id number] 09/07/20 09:10 RB 09/07/20 09:00 Wound Center Nurse 1 [Ulcer Assessment] 2. L LATERAL PLANTAR -Combined with other wound No -Current Size (cm) - Length 0.1 -Current Size (cm) - Width 0.1 -Current Size (cm) - Depth 0.1 -Total Square Cm 0.01 -Tunneling No -Undermining/Tunneling No -Circular Undermining No -Exudate Amt Medium -Exudate Type Serosanguineous -Wound Margin Thickened -Granulation Amt Medium (34-66%) -Granulation Quality Red -Slough/Fibrin Yes -Necrosis Amt Small (1-33%) -Necrotic Tissue Type Adherent Slough -Structure Exposed N/A -Texture (Flory-wound Skin Appearance) Assessed,Callus -Moisture (Flory-wound Skin Appearance Assessed ) -Color (Flory-wound Skin Appearance) Assessed -Temperature (Flory-wound Skin No Abnormality Appearance) (Pt Warm) -Tenderness on Palpation (Flory-wound No Skin Appearance) -Ulcer Cleansing Rinsed/ Irrigated with Saline -Foul Odor after Cleansing No -Anesthetic Used 4% Lidocaine Solution WC - Nurse 2 - General Ulcer CM Notes Start: 09/07/20 08:59 Freq: Status: Active Protocol: Activity Type Activity Date Activity User E-Sign Co-Sign Detail Recorded Client Recorded Date Recorded By Document 09/07/20 09:26 MW [id number] 09/07/20 09:48 MW 09/07/20 09:26 Wound Center Nurse 2 [Procedure/Treatment] -Time 09:26 -Correct Patient Yes -Correct Side, Site, Position Yes -Correct Procedure Yes -Procedure Performed Yes -Type of Procedure Debridement -Clinical Debridement Subcutaneous -Tissue Removed Subcutaneous -Post Debridement (cm) - Length 0.3 -Post Debridement (cm) - Width 1.5 -Post Debridement (cm) - Depth 0.2 -Total Square (Post) (cm) 0.45 -Area of Debridement (cm) - Length 0.3 -Area of Debridement (cm) - Width 1.5 -Total Square (Area) (cm) 0.45 -Tunneling No -Undermining/Tunneling No -Circular Undermining No -Wound/Ulcer Outcome Not Healed -Ulcer Cleansing Rinsed/ Irrigated with Saline -Foul Odor after Cleansing No -Bioengineered Tissue No -Bleeding Controlled with Pressure -Offloading No -Treatment Response Procedure Tolerated Well -Debridement - Subq, 1st 20sq cm Yes [See Physician Procedure note for Specifics] Pain Scale: 0-10 Numeric [Pain] -Is Patient Pain Free? Yes - Nurse 3 - General Ulcer D/C NN Start: 09/07/20 08:59 Freq: Status: Active Protocol: Activity Type Activity Date Activity User E-Sign Co-Sign Detail Recorded Client Recorded Date Recorded By Document 09/07/20 10:00 RB [id number] 09/07/20 10:01 RB 09/07/20 10:00 Wound Care Nurse 3 [Wound Dressing] 2. L LATERAL PLANTAR -Ulcer Cleansing Rinsed/ Irrigated with Saline -Primary Dressing Applied Aquacel AG 4x4 -Primary Dressing Covered/Secured Dry Gauze,Dry with Gauze & Roll Gauze,Secured with Tape -Aquacel AG 4x4 1 Vital Signs [Blood Pressure] -Blood Pressure (90/60-120/80) 140/72 H -Blood Pressure Mean (mm Hg) 94 -Source Monitor -Position Semi-Fowlers -Blood Pressure Location Left Arm Pain Scale: 0-10 Numeric [Pain] -Is Patient Pain Free? Yes - Visit Discharge [Visit Discharge Information] -Discharge Condition Stable -Ambulatory Status Ambulatory -Transportation Private Auto -Medication Reconcilliation completed No & provided to patient/care provider -Clinical Summary of Care Provided Yes Psych/Mental Status: Normal Affect, Appropriate Debridement Note Post-Debridement Measurements/Treatment - Nurse 2 - General Ulcer CM Notes Start: 09/07/20 08:59 Freq: Status: Active Protocol: Activity Type Activity Date Activity User E-Sign Co-Sign Detail Recorded Client Recorded Date Recorded By Document 09/07/20 09:26 MW [id number] 09/07/20 09:48 MW 09/07/20 09:26 Wound Center Nurse 2 2. L LATERAL PLANTAR -Time 09:26 -Correct Patient Yes -Correct Side, Site, Position Yes -Correct Procedure Yes -Procedure Performed Yes -Type of Procedure Debridement -Clinical Debridement Subcutaneous -Tissue Removed Subcutaneous -Post Debridement (cm) - Length 0.3 -Post Debridement (cm) - Width 1.5 -Post Debridement (cm) - Depth 0.2 -Total Square (Post) (cm) 0.45 -Area of Debridement (cm) - Length 0.3 -Area of Debridement (cm) - Width 1.5 -Total Square (Area) (cm) 0.45 -Tunneling No -Undermining/Tunneling No -Circular Undermining No -Wound/Ulcer Outcome Not Healed -Ulcer Cleansing Rinsed/ Irrigated with Saline -Foul Odor after Cleansing No -Bioengineered Tissue No -Bleeding Controlled with Pressure -Offloading No -Treatment Response Procedure Tolerated Well -Debridement - Subq, 1st 20sq cm Yes Pain Scale: 0-10 Numeric Is Patient Pain Free? Yes - Nurse 3 - General Ulcer D/C NN Start: 09/07/20 08:59 Freq: Status: Active Protocol: Activity Type Activity Date Activity User E-Sign Co-Sign Detail Recorded Client Recorded Date Recorded By Document 09/07/20 10:00 GILLES [id number] 09/07/20 10:01 GILLES 09/07/20 10:00 Wound Care Nurse 3 2. L LATERAL PLANTAR -Ulcer Cleansing Rinsed/ Irrigated with Saline -Primary Dressing Applied Aquacel AG 4x4 -Primary Dressing Covered/Secured with Dry Gauze,Dry Gauze & Roll Gauze,Secured with Tape -Aquacel AG 4x4 1 Vital Signs Blood Pressure (90/60-120/80) 140/72 H Blood Pressure Mean (mm Hg) 94 Source Monitor Position Semi-Fowlers Blood Pressure Location Left Arm Pain Scale: 0-10 Numeric Is Patient Pain Free? Yes - Visit Discharge Discharge Condition Stable Ambulatory Status Ambulatory Transportation Private Auto Medication Reconcilliation completed & No provided to patient/care provider Clinical Summary of Care Provided Yes Wound debrided: Left lateral plantar Laterality: Left Wound Grade/Stage: Stage II Type of Debridement: Excisional debridement Anesthesia Used: 4% Lidocaine Solution Depth: Down to and including healthy tissue, in the subcutaneous layer Percentage of wound debrided: 100 Instrument Used: #15 blade, Forceps Tissue Removed: Yellow slough, devitalized tissue Severity: Fat Layer Exposed Amount of bleeding with debridement: Mild Bleeding Controlled with: Compression and gauze Patient tolerated procedure well Assessment/Plan Active Problems Abscess of left foot excluding toes (Chronic) 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 delayed healing. h/o infection and cellulitis. Foot deformity including hammertoe tailor bunion, left Plan: The patient was evaluated and subcutaneous debridement of wound was performed. Wound culture was performed today and will treat based on results. He will use Aquacel Ag to the wound daily after washing with soap and water for moderate to heavy drainage. His ulcer is caused from chronic pressure at the site of his 5th metatarsal head. This will continue to recur unless he maintains proper offloading and treatment. Stressed importance of offloading and work boot insole was intructed to be modified and encouraged for him to continue to use. His x-ray reports do not indicate acute osteomyelitis or other radiographic evidence of infection. His CT scan also was negative however it is noted that osteomyelitis cannot be fully ruled out with this diagnostic imaging study of choice. He has seen Dr. Camargo in consultation and treatment options below were discussed. It is noted this patient is not performing really any offloading. They are educated on the importance of this again today. He will likely not make progress if he continues to walk on his wound all day. He does not like his wedge offloading shoe. I offered him a cam walker boot with dual density Plastizote offloading liner. He was advised to go nonweightbearing at home to alleviate pressure on the site. A simple resection of the fifth metatarsal head can be performed which would alleviating his foot deformity. He previously did not want to proceed forward with surgical intervention. He still is now hesitant to proceed forward at this time because he states he will not be able to stay off of his foot. He is concerned about losing his job. He will follow up in 1 week. Note: [employer] speech recognition computer aided drafter software was used to create portions of this document. Sound-alike and misspelled words, as well as other computer aided drafter errors may be contained in the documentation.
[2020-09-14 09:00] VITALS: BP 156/87; PULSE 74; RESP 18; TEMP 36.8; BMI 29.2
--- NOTE | 2020-09-14 14:45 | PCM.WC.PN ---
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 Status: Chronic Code(s): L97.522 - Non-pressure chronic ulcer of other part of left foot with fat layer exposed (3) Chronic ulcer of left foot with fat layer exposed Status: Chronic Code(s): L97.522 - Non-pressure chronic ulcer of other part of left foot with fat layer exposed (4) Delayed wound healing Status: Chronic Code(s): T14.8XXD - Other injury of unspecified body region, subsequent encounter Type of Wound Date of Service: 09/14/20 Chief Complaint: nonhealing wound left plantar foot History of Wound: Jose J is a 65 y/o gentleman that presents to the wound healing center for evaluation and treatment of a wound to his left plantar foot. He is a patient of Dr. Giordano. He has had a wound to this same area in February 2019 and was seen at [facility] and treated there for 9 weeks with Aquacel and was placed in a wedge shoe to offload his foot. He was treated for this same wound for almost a year at this wound center and was healed in May 2020. He has undergone vascular testing at [facility] in 2018. 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 He and his did not want to do surgery. He began developing pain and callous and moderate to heavy drainage at the end of June. His has been dressing the wound with Aquacel for the last several weeks as that was what he was treated with previously. He had a prescription for doxycycline that he started when it was draining. He denies fever or chills or nausea. He had a CT scan last year of his foot also and these results were previously reviewed and do not show osteomyelitis. He keeps walking on his foot in a steel toe boot 4-5 days a week. He had an offloading pad in his work boot but has not changed that since being discharged in May. He denies claudication with walking. He had vascular studies performed last February at an outside facility and these have been requested but never received. He denies fever, chill, nausea, vomiting, redness or odor. Progress of Wound: Jose J was seen today for follow up for his left plantar ulcer. His wound culture was positive for anearobic bacteria and staph bacteria. He was started on Flagyl for anaerobic bacteria infection. He tolerated treatment with Aquacel and gauze. He has not modified his work boot. He denies fever, chills, increased drainage or odor. - Physical Exam Vital Signs Temp Pulse Resp BP 98.2 F 74 18 156/87 H 09/14/20 09:00 09/14/20 09:00 09/14/20 09:00 09/14/20 09:00 General: Alert, Oriented x3, Cooperative, No apparent distress HEENT: Atraumatic, Normocephalic Oral: Moist Mucosa Neck: Supple Lungs: Clear to auscultation, Normal air movement Cardiovascular: Regular rate, Regular Rhythm Abdomen: Soft, Non Tender, Obese Extremities: No edema Skin: Ulcer/ Wound Wound Measurements and Assessment WC - Nurse 1 - General Ulcer Measurement Start: 09/07/20 08:59 Freq: Status: Active Protocol: Activity Type Activity Date Activity User E-Sign Co-Sign Detail Recorded Client Recorded Date Recorded By Document 09/14/20 09:00 [id number] 09/14/20 09:02 RB 09/14/20 09:00 Wound Center Nurse 1 [Ulcer Assessment] 2. L LATERAL PLANTAR -Combined with other wound No -Current Size (cm) - Length 0.1 -Current Size (cm) - Width 0.1 -Current Size (cm) - Depth 0.1 -Total Square Cm 0.01 -Tunneling No -Undermining/Tunneling No -Circular Undermining No -Exudate Amt Small -Exudate Type Serosanguineous -Wound Margin Fibrotic Scar, Thickened Scar -Granulation Amt Medium (34-66%) -Granulation Quality [place] -Slough/Fibrin Yes -Necrosis Amt Small (1-33%) -Necrotic Tissue Type Adherent Slough -Structure Exposed N/A -Texture (Flory-wound Skin Appearance) Assessed,Callus -Moisture (Flory-wound Skin Appearance Assessed ) -Color (Flory-wound Skin Appearance) Assessed -Temperature (Flory-wound Skin No Abnormality Appearance) (Pt Warm) -Tenderness on Palpation (Flory-wound No Skin Appearance) -Ulcer Cleansing Wound Cleanser -Foul Odor after Cleansing No -Anesthetic Used 4% Lidocaine Solution - Nurse 2 - General Ulcer CM Notes Start: 09/07/20 08:59 Freq: Status: Active Protocol: Activity Type Activity Date Activity User E-Sign Co-Sign Detail Recorded Client Recorded Date Recorded By Document 09/14/20 09:28 MW [id number] 09/14/20 09:43 MW 09/14/20 09:28 Wound Center Nurse 2 [Procedure/Treatment] -Time 09:28 -Correct Patient Yes -Correct Side, Site, Position Yes -Correct Procedure Yes -Procedure Performed Yes -Type of Procedure Debridement -Clinical Debridement Subcutaneous -Tissue Removed Subcutaneous -Post Debridement (cm) - Length 0.2 -Post Debridement (cm) - Width 0.4 -Post Debridement (cm) - Depth 0.1 -Total Square (Post) (cm) 0.08 -Area of Debridement (cm) - Length 0.2 -Area of Debridement (cm) - Width 0.4 -Total Square (Area) (cm) 0.08 -Tunneling No -Undermining/Tunneling No -Circular Undermining No -Wound/Ulcer Outcome Not Healed -Ulcer Cleansing Rinsed/ Irrigated with Saline -Foul Odor after Cleansing No -Bioengineered Tissue No -Bleeding Controlled with Pressure -Offloading No -Treatment Response Procedure Tolerated Well -Debridement - Subq, 1st 20sq cm Yes [See Physician Procedure note for Specifics] Pain Scale: 0-10 Numeric [Pain] -Is Patient Pain Free? Yes - Nurse 3 - General Ulcer D/C NN Start: 09/07/20 08:59 Freq: Status: Active Protocol: Activity Type Activity Date Activity User E-Sign Co-Sign Detail Recorded Client Recorded Date Recorded By Document 09/14/20 09:45 MW [id number] 09/14/20 09:45 MW 09/14/20 09:45 Wound Care Nurse 3 [Wound Dressing] 2. L LATERAL PLANTAR -Ulcer Cleansing Rinsed/ Irrigated with Saline -Foul Odor after Cleansing No -Negative Pressure Wound Therapy N/A -Other Dressing aquacel ag -Primary Dressing Covered/Secured Dry Gauze, with Secured with Tape [Post Procedure Tolerated] -Treatment Response Procedure Tolerated Well Teaching: Wound Center [Wound Center Education] (Items with an * have Printed Materials Available- Please identify what is given to patient under the Teaching materials given to patient and caregiver Section. Dressing Your Wound -Person Taught Patient -Teaching Method Discussion -Response to teaching Verbalize understanding WC - Visit Discharge [Visit Discharge Information] -Discharge Condition Stable -Ambulatory Status Ambulatory -Transportation Private Auto -Accompanied by self -Medication Reconcilliation completed No & provided to patient/care provider -Clinical Summary of Care Provided Yes Psych/Mental Status: Normal Affect, Appropriate Debridement Note Post-Debridement Measurements/Treatment - Nurse 2 - General Ulcer CM Notes Start: 09/07/20 08:59 Freq: Status: Active Protocol: Activity Type Activity Date Activity User E-Sign Co-Sign Detail Recorded Client Recorded Date Recorded By Document 09/07/20 09:26 MW [id number] 09/07/20 09:48 MW Document 09/14/20 09:28 MW [id number] 09/14/20 09:43 MW 09/07/20 09/14/20 09:26 09:28 Wound Center Nurse 2 2. L LATERAL PLANTAR -Time 09:26 09:28 -Correct Patient Yes Yes -Correct Side, Site, Position Yes Yes -Correct Procedure Yes Yes -Procedure Performed Yes Yes -Type of Procedure Debridement Debridement -Clinical Debridement Subcutaneous Subcutaneous -Tissue Removed Subcutaneous Subcutaneous -Post Debridement (cm) - Length 0.3 0.2 -Post Debridement (cm) - Width 1.5 0.4 -Post Debridement (cm) - Depth 0.2 0.1 -Total Square (Post) (cm) 0.45 0.08 -Area of Debridement (cm) - Length 0.3 0.2 -Area of Debridement (cm) - Width 1.5 0.4 -Total Square (Area) (cm) 0.45 0.08 -Tunneling No No -Undermining/Tunneling No No -Circular Undermining No No -Wound/Ulcer Outcome Not Healed Not Healed -Ulcer Cleansing Rinsed/ Rinsed/ Irrigated with Irrigated with Saline Saline -Foul Odor after Cleansing No No -Bioengineered Tissue No No -Bleeding Controlled with Pressure Pressure -Offloading No No -Treatment Response Procedure Procedure Tolerated Well Tolerated Well -Debridement - Subq, 1st 20sq cm Yes Yes Pain Scale: 0-10 Numeric Is Patient Pain Free? Yes Yes - Nurse 3 - General Ulcer D/C NN Start: 09/07/20 08:59 Freq: Status: Active Protocol: Activity Type Activity Date Activity User E-Sign Co-Sign Detail Recorded Client Recorded Date Recorded By Document 09/07/20 10:00 RB [id number] 09/07/20 10:01 RB Document 09/14/20 09:45 MW [id number] 09/14/20 09:45 MW 09/07/20 09/14/20 10:00 09:45 Wound Care Nurse 3 2. L LATERAL PLANTAR -Ulcer Cleansing Rinsed/ Rinsed/ Irrigated with Irrigated with Saline Saline -Foul Odor after Cleansing No -Negative Pressure Wound Therapy N/A -Primary Dressing Applied Aquacel AG 4x4 -Other Dressing aquacel ag -Primary Dressing Covered/Secured with Dry Gauze,Dry Dry Gauze, Gauze & Roll Secured with Gauze,Secured Tape with Tape -Aquacel AG 4x4 1 Treatment Response Procedure Tolerated Well Vital Signs Blood Pressure (90/60-120/80) 140/72 H Blood Pressure Mean (mm Hg) 94 Source Monitor Position Semi-Fowlers Blood Pressure Location Left Arm Pain Scale: 0-10 Numeric Is Patient Pain Free? Yes Teaching: Wound Center Dressing Your Wound -Person Taught Patient -Teaching Method Discussion -Response to teaching Verbalize understanding WC - Visit Discharge Discharge Condition Stable Stable Ambulatory Status Ambulatory Ambulatory Transportation Private Auto Private Auto Accompanied by self Medication Reconcilliation completed & No No provided to patient/care provider Clinical Summary of Care Provided Yes Yes Wound debrided: left lateral plantar Laterality: Left Type of Debridement: Excisional debridement Anesthesia Used: 4% Lidocaine Solution, 5% Lidocaine Gel Depth: Down to and including healthy tissue, in the subcutaneous layer Percentage of wound debrided: 100 Instrument Used: #15 blade, Forceps Tissue Removed: yellow slough, devitalized tissue Severity: Fat Layer Exposed Amount of bleeding with debridement: Mild Bleeding Controlled with: Compression and gauze Patient tolerated procedure well Assessment/Plan Active Problems Abscess of left foot excluding toes (Chronic) 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 delayed healing. h/o infection and cellulitis. Foot deformity including hammertoe tailor bunion, left Plan: The patient was evaluated and subcutaneous debridement of wound was performed. Wound culture was positive for anaerobic bacteria. He will complete Flagyl and will continue to use Aquacel Ag to the wound daily after washing with soap and water for moderate to heavy drainage. His ulcer is caused from chronic pressure at the site of his 5th metatarsal head. This will continue to recur unless he maintains proper offloading and treatment. Stressed importance of offloading and work boot insole was instructed to be modified and encouraged for him to continue to use. His x-ray reports do not indicate acute osteomyelitis or other radiographic evidence of infection. His CT scan also was negative however it is noted that osteomyelitis cannot be fully ruled out with this diagnostic imaging study of choice. He has seen Dr. Camargo in consultation and treatment options below were discussed. It is noted this patient is not performing really any offloading. They are educated on the importance of this again today. He will likely not make progress if he continues to walk on his wound all day. He does not like his wedge offloading shoe. I offered him a cam walker boot with dual density Plastizote offloading liner. He was advised to go nonweightbearing at home to alleviate pressure on the site. A simple resection of the fifth metatarsal head can be performed which would alleviating his foot deformity. He previously did not want to proceed forward with surgical intervention. He still is now hesitant to proceed forward at this time because he states he will not be able to stay off of his foot. He is concerned about losing his job. He will follow up in 1 week. Note: [employer] speech recognition compliance administrator software was used to create portions of this document. Sound-alike and misspelled words, as well as other compliance administrator errors may be contained in the documentation.
[2020-09-21 08:50] VITALS: BP 172/76; PULSE 76; RESP 18; TEMP 36.9; BMI 29.2
--- NOTE | 2020-09-21 15:54 | PCM.WC.PN ---
History of Present Illness Date of Service: 09/21/20 Chief Complaint: nonhealing wound left plantar foot History of Wound: Jose J is a 65 y/o gentleman that presents to the wound healing center for evaluation and treatment of a wound to his left plantar foot. He is a patient of Dr. Giordano. He has had a wound to this same area in February 2019 and was seen at [facility] and treated there for 9 weeks with Aquacel and was placed in a wedge shoe to offload his foot. He was treated for this same wound for almost a year at this wound center and was healed in May 2020. He has undergone vascular testing at [facility] in 2018. 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 He and his did not want to do surgery. He began developing pain and callous and moderate to heavy drainage at the end of June. His has been dressing the wound with Aquacel for the last several weeks as that was what he was treated with previously. He had a prescription for doxycycline that he started when it was draining. He denies fever or chills or nausea. He had a CT scan last year of his foot also and these results were previously reviewed and do not show osteomyelitis. He keeps walking on his foot in a steel toe boot 4-5 days a week. He had an offloading pad in his work boot but has not changed that since being discharged in May. He denies claudication with walking. He had vascular studies performed last February at an outside facility and these have been requested but never received. He denies fever, chill, nausea, vomiting, redness or odor. Subjective Subjective: Jose J was seen today for follow up for his left plantar ulcer. He is tolerating treatment with Flagyl for positive wound culture. He tolerated treatment with Aquacel and gauze and has had minimal drainage and pain. He has not modified his work boot. He denies fever, chills, increased drainage or odor. 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 delayed healing. h/o infection and cellulitis. Foot deformity including hammertoe tailor bunion, left Plan: The patient was evaluated and subcutaneous debridement of wound was performed. Wound culture was positive for anaerobic bacteria. He will complete Flagyl and will continue to use Aquacel Ag to the wound daily after washing with soap and water for moderate to heavy drainage. His ulcer is caused from chronic pressure at the site of his 5th metatarsal head. This will continue to recur unless he maintains proper offloading and treatment. Stressed importance of offloading and work boot insole was instructed to be modified and encouraged for him to continue to use. His work boot insole was modified today. His x-ray reports do not indicate acute osteomyelitis or other radiographic evidence of infection. His CT scan also was negative however it is noted that osteomyelitis cannot be fully ruled out with this diagnostic imaging study of choice. He has seen Dr. Camargo in consultation and treatment options below were discussed. It is noted this patient is not performing really any offloading. They are educated on the importance of this again today. He will likely not make progress if he continues to walk on his wound all day. He does not like his wedge offloading shoe. I offered him a cam walker boot with dual density Plastizote offloading liner. He was advised to go nonweightbearing at home to alleviate pressure on the site. A simple resection of the fifth metatarsal head can be performed which would alleviating his foot deformity. He previously did not want to proceed forward with surgical intervention. He still is now hesitant to proceed forward at this time because he states he will not be able to stay off of his foot. He is concerned about losing his job. He will follow up in 1 week. Note: [employer] speech recognition gastroenterology professor software was used to create portions of this document. Sound-alike and misspelled words, as well as other gastroenterology professor errors may be contained in the documentation. Physical Exam Const alert, oriented x3 and no apparent distress General Appearance: cooperative and comfortable Cardio regular rate and regular rhythm Skin Wounds: wounds noted Psych mental status grossly normal and affect normal Debridement Note Debridement Note Post-Debridement Measurements and Additional Note: Post-Debridement Measurements/Treatment WC - Nurse 2 - General Ulcer CM Notes Start: 09/07/20 08:59 Freq: Status: Active Protocol: Activity Type Activity Date Activity User E-Sign Co-Sign Detail Recorded Client Recorded Date Recorded By Document 09/07/20 09:26 MW [id number] 09/07/20 09:48 MW Document 09/14/20 09:28 MW [id number] 09/14/20 09:43 MW Document 09/21/20 09:12 MW [id number] 09/21/20 09:17 MW 09/07/20 09/14/20 09/21/20 09:26 09:28 09:12 Wound Center Nurse 2 2. L LATERAL PLANTAR -Time 09:26 09:28 09:12 -Correct Patient Yes Yes Yes -Correct Side, Site, Position Yes Yes Yes -Correct Procedure Yes Yes Yes -Procedure Performed Yes Yes Yes -Type of Procedure Debridement Debridement Debridement -Clinical Debridement Subcutaneous Subcutaneous Subcutaneous -Tissue Removed Subcutaneous Subcutaneous Subcutaneous -Post Debridement (cm) - Length 0.3 0.2 0.1 -Post Debridement (cm) - Width 1.5 0.4 0.1 -Post Debridement (cm) - Depth 0.2 0.1 0.1 -Total Square (Post) (cm) 0.45 0.08 0.01 -Area of Debridement (cm) - Length 0.3 0.2 0.1 -Area of Debridement (cm) - Width 1.5 0.4 0.1 -Total Square (Area) (cm) 0.45 0.08 0.01 -Tunneling No No No -Undermining/Tunneling No No No -Circular Undermining No No No -Wound/Ulcer Outcome Not Healed Not Healed Not Healed -Ulcer Cleansing Rinsed/ Rinsed/ Rinsed/ Irrigated with Irrigated with Irrigated with Saline Saline Saline -Foul Odor after Cleansing No No No -Bioengineered Tissue No No No -Bleeding Controlled with Pressure Pressure Pressure -Offloading No No No -Treatment Response Procedure Procedure Procedure Tolerated Well Tolerated Well Tolerated Well -Debridement - Subq, 1st 20sq cm Yes Yes Yes Pain Scale: 0-10 Numeric Is Patient Pain Free? Yes Yes Yes WC - Nurse 3 - General Ulcer D/C NN Start: 09/07/20 08:59 Freq: Status: Active Protocol: Activity Type Activity Date Activity User E-Sign Co-Sign Detail Recorded Client Recorded Date Recorded By Document 09/07/20 10:00 RB [id number] 09/07/20 10:01 RB Document 09/14/20 09:45 MW [id number] 09/14/20 09:45 MW Document 09/21/20 09:38 MW [id number] 09/21/20 09:39 MW 09/07/20 09/14/20 09/21/20 10:00 09:45 09:38 Wound Care Nurse 3 2. L LATERAL PLANTAR -Ulcer Cleansing Rinsed/ Rinsed/ Rinsed/ Irrigated with Irrigated with Irrigated with Saline Saline Saline -Foul Odor after Cleansing No No -Negative Pressure Wound Therapy N/A N/A -Primary Dressing Applied Aquacel AG 4x4 -Other Dressing aquacel ag aquacel ag -Primary Dressing Covered/Secured with Dry Gauze,Dry Dry Gauze, Dry Gauze & Gauze & Roll Secured with Roll Gauze, Gauze,Secured Tape Secured with with Tape Tape -Aquacel AG 4x4 1 Treatment Response Procedure Procedure Tolerated Well Tolerated Well Vital Signs Blood Pressure (90/60-120/80) 140/72 H Blood Pressure Mean (mm Hg) 94 Source Monitor Position Semi-Fowlers Blood Pressure Location Left Arm Pain Scale: 0-10 Numeric Is Patient Pain Free? Yes Yes Teaching: Wound Center Dressing Your Wound -Person Taught Patient Patient -Teaching Method Discussion Discussion -Response to teaching Verbalize Verbalize understanding understanding WC - Visit Discharge Discharge Condition Stable Stable Stable Ambulatory Status Ambulatory Ambulatory Ambulatory Transportation Private Auto Private Auto Private Auto Accompanied by self Medication Reconcilliation completed & No No No provided to patient/care provider Clinical Summary of Care Provided Yes Yes Yes Wound debrided: left lateral plantar Laterality: Left Type of Debridement: Excisional debridement Anesthesia Used: 4% Lidocaine Solution Depth: Down to and including healthy tissue and in the subcutaneous layer Percentage of wound debrided: 100 Instrument Used: 3mm curette Tissue Removed: Yellow slough, devitalized tissue Severity: Fat Layer Exposed Amount of bleeding with debridement: Mild Bleeding Controlled with: Compression and gauze Patient tolerated procedure: Patient tolerated procedure well
== END 2020-09-21 23:59 ==
LOC: WC 09:00
PROVIDERS: PCP Family Medicine; Visit Provider Family Medicine
DX: L97.522 Non-pressure chronic ulcer of other part of left foot with fat layer exposed (principal); L02.612 Cutaneous abscess of left foot; M21.612 Bunion of left foot; I10 Essential (primary) hypertension; E78.5 Hyperlipidemia, unspecified; Z79.1 Long term (current) use of non-steroidal anti-inflammatories (NSAID); Z79.899 Other long term (current) drug therapy; Z88.0 Allergy status to penicillin; Z87.891 Personal history of nicotine dependence
CPT/HCPCS: 11042; 87070; 87075; 87077; 87186; 87205; 99213; G0463

== ENCOUNTER 2020-10-12 10:00 | Outpatient (RCR) | payer BC, SELFPAY ==
[2020-09-22 00:53] VITALS: BP 172/76; PULSE 76; RESP 18; TEMP 36.9
[2020-09-28 09:00] VITALS: BP 145/77; PULSE 71; RESP 16; TEMP 36.6; BMI 29.2
--- NOTE | 2020-09-28 15:12 | PN.PCM_ITS ---
History of Present Illness Date of Service: 10/05/20 Chief Complaint: nonhealing wound left plantar foot History of Wound: Jose J is a 65 y/o gentleman that presents to the wound healing center for evaluation and treatment of a wound to his left plantar foot. He is a patient of Dr. Giordano. He has had a wound to this same area in February 2019 and was seen at [facility] and treated there for 9 weeks with Aquacel and was placed in a wedge shoe to offload his foot. He was treated for this same wound for almost a year at this wound center and was healed in May 2020. He has undergone vascular testing at [facility] in 2018. 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 He and his did not want to do surgery. He began developing pain and callous and moderate to heavy drainage at the end of June. His has been dressing the wound with Aquacel for the last several weeks as that was what he was treated with previously. He had a prescription for doxycycline that he started when it was draining. He denies fever or chills or nausea. He had a CT scan last year of his foot also and these results were previously reviewed and do not show osteomyelitis. He keeps walking on his foot in a steel toe boot 4-5 days a week. He had an offloading pad in his work boot but has not changed that since being discharged in May. He denies claudication with walking. He had vascular studies performed last February at an outside facility and these have been requested but never received. He denies fever, chill, nausea, vomiting, redness or odor. Subjective Subjective: Jose J was seen today for follow up for his left plantar ulcer. He is tolerating treatment with Flagyl for positive wound culture. He tolerated treatment with Aquacel and gauze and has had minimal drainage and pain. He has not modified his work boot. He denies fever, chills, increased drainage or odor. Objective Data Objective Data Vital Signs: Vital Signs Temp Pulse Resp BP 97.9 F 71 16 145/77 H 09/28/20 09:00 09/28/20 09:00 09/28/20 09:00 09/28/20 09:00 Weight: 108.862 kg Body Mass Index (BMI) 29.2 Assessment & Plan Assessment/Plan (1) Abscess of left foot excluding toes: (2) Non-healing ulcer of left foot with fat layer exposed: (3) Delayed wound healing: (4) Chronic ulcer of left foot with fat layer exposed: PLAN: Assessment: left lateral plantar foot chronic ulcer. delayed healing. h/o infection and cellulitis. Foot deformity including hammertoe tailor bunion, left Plan: The patient was evaluated and subcutaneous debridement of wound was performed. Wound culture was positive for anaerobic bacteria. He will complete Flagyl and will continue to use Aquacel Ag to the wound daily after washing with soap and water for moderate to heavy drainage. His ulcer is caused from chronic pressure at the site of his 5th metatarsal head. This will continue to recur unless he maintains proper offloading and treatment. Stressed importance of offloading and work boot insole was instructed to be modified and encouraged for him to continue to use. His work boot insole was modified today. His x-ray reports do not indicate acute osteomyelitis or other radiographic evidence of infection. His CT scan also was negative however it is noted that osteomyelitis cannot be fully ruled out with this diagnostic imaging study of choice. He has seen Dr. Camargo in consultation and treatment options below were discussed. It is noted this patient is not performing really any offloading. They are educated on the importance of this again today. He will likely not make progress if he continues to walk on his wound all day. He does not like his wedge offloading shoe. I offered him a cam walker boot with dual density Plastizote offloading liner. He was advised to go nonweightbearing at home to alleviate pressure on the site. A simple resection of the fifth metatarsal head can be performed which would alleviating his foot deformity. He previously did not want to proceed forward with surgical intervention. He still is now hesitant to proceed forward at this time because he states he will not be able to stay off of his foot. He is concerned about losing his job. He will follow up in 1 week. Note: [employer] speech recognition catalytic case operator software was used to create portions of this document. Sound-alike and misspelled words, as well as other catalytic case operator errors may be contained in the documentation. Physical Exam Const alert and oriented x3 General Appearance: cooperative HEENT normocephalic and head/scalp atraumatic Mouth: oral and palatal mucosa normal Resp normal respiratory effort Cardio regular rate and regular rhythm Skin Wounds: wounds noted Wound Narrative: as in clinical data Psych mental status grossly normal and affect normal Appearance: grossly normal and appropriate Debridement Note Debridement Note Post-Debridement Measurements and Additional Note: Post-Debridement Measurements/Treatment QUOC - Nurse 1 - General Ulcer Assessment Start: 09/28/20 09:00 Freq: Status: Active Protocol: KANIKA Activity Type Activity Date Activity User E-Sign Co-Sign Detail Recorded Client Recorded Date Recorded By Document 09/28/20 09:00 MS [id number] 09/28/20 09:07 MS 09/28/20 09:00 WC - Today's Visit Information Type of service Follow-up Visit (Physician/RADIOLOGY SPECIALIST ) Arrival Mode Ambulatory Patient Identification Verified (Name & Yes ) Patient Requires Transmission-Based No Precautions Safety Precautions NA Height and Weight Body Mass Index (BMI) 29.2 BMI Classification Overweight Vital Signs Temperature (97.8 F-99.1 F) 97.9 F Temperature Source Temporal Pulse Rate (60-100) 71 Pulse Location Monitor Respiratory Rate (12-18) 16 Respiratory rate source Observation Blood Pressure (90/60-120/80) 145/77 H Blood Pressure Mean (mm Hg) 99 Source Monitor Position Sitting Blood Pressure Location Left Arm History Since Last Visit- (Skip if this is Patient's initial visit) Have you changed medications since your No last visit? Any new allergies or adverse reactions No Had a fall/change in ADL's that may No increase risk of falls Signs or symptoms of abuse and/or No neglect since last visit Have you been in the hospital since your No last visit? Has dressing in place as prescribed Yes Has compression in place as prescribed N/A Has offloadiing in place as prescribed N/A Experienced any changes in pain level or No management Left Footwear Regular Shoe Right Footwear Regular Shoe Pain Scale: 0-10 Numeric Is Patient Pain Free? Yes QUOC - Nurse 1 - General Ulcer Measurement Start: 09/28/20 09:00 Freq: Status: Active Protocol: Activity Type Activity Date Activity User E-Sign Co-Sign Detail Recorded Client Recorded Date Recorded By Document 09/28/20 09:00 MS [id number] 09/28/20 09:07 MS 09/28/20 09:00 Wound Center Nurse 1 2. L LATERAL PLANTAR -Current Size (cm) - Length 0.1 -Current Size (cm) - Width 0.1 -Current Size (cm) - Depth 0.1 -Total Square Cm 0.01 -Exudate Amt None Present -Wound Margin Distinct, Outline Attached -Granulation Amt Large (67-100%) -Granulation Quality [place] -Necrosis Amt None Present (0 %) -Texture (Flory-wound Skin Appearance) No Abnormality -Moisture (Flory-wound Skin Appearance) No Abnormality -Color (Flory-wound Skin Appearance) No Abnormality -Temperature (Flory-wound Skin No Abnormality Appearance) (Pt Warm) -Ulcer Cleansing Rinsed/ Irrigated with Saline -Foul Odor after Cleansing No -Anesthetic Used 4% Lidocaine Solution WC - Nurse 2 - General Ulcer CM Notes Start: 09/28/20 09:00 Freq: Status: Active Protocol: Activity Type Activity Date Activity User E-Sign Co-Sign Detail Recorded Client Recorded Date Recorded By Document 09/28/20 09:49 MW [id number] 09/28/20 09:59 MW 09/28/20 09:49 Wound Center Nurse 2 -Time 09:49 -Correct Patient Yes -Correct Side, Site, Position Yes -Correct Procedure Yes -Procedure Performed Yes -Type of Procedure Debridement -Clinical Debridement Epidermis / Dermis -Tissue Removed Epidermis -Post Debridement (cm) - Length 0.1 -Post Debridement (cm) - Width 0.1 -Post Debridement (cm) - Depth 0.1 -Total Square (Post) (cm) 0.01 -Area of Debridement (cm) - Length 0.1 -Area of Debridement (cm) - Width 0.1 -Total Square (Area) (cm) 0.01 -Tunneling No -Undermining/Tunneling No -Circular Undermining No -Wound/Ulcer Outcome Not Healed -Ulcer Cleansing Rinsed/ Irrigated with Saline -Foul Odor after Cleansing No -Bioengineered Tissue No -Bleeding Controlled with Pressure -Offloading No -Treatment Response Procedure Tolerated Well -Debridement - Open, 1st 20sq cm Yes Pain Scale: 0-10 Numeric Is Patient Pain Free? Yes QUOC - Nurse 3 - General Ulcer D/C NN Start: 09/28/20 09:00 Freq: Status: Active Protocol: Activity Type Activity Date Activity User E-Sign Co-Sign Detail Recorded Client Recorded Date Recorded By Document 09/28/20 09:59 MW [id number] 09/28/20 09:59 MW 09/28/20 09:59 Wound Care Nurse 3 2. L LATERAL PLANTAR -Ulcer Cleansing Rinsed/ Irrigated with Saline -Foul Odor after Cleansing No -Negative Pressure Wound Therapy N/A -Primary Dressing Covered/Secured with Dry Gauze & Roll Gauze, Secured with Tape Treatment Response Procedure Tolerated Well Pain Scale: 0-10 Numeric Is Patient Pain Free? Yes Teaching: Wound Center Dressing Your Wound -Person Taught Patient,Family -Teaching Method Discussion, Demonstration -Response to teaching Verbalize understanding WC - Visit Discharge Discharge Condition Stable Ambulatory Status Ambulatory Transportation Private Auto Accompanied by Medication Reconcilliation completed & No provided to patient/care provider Clinical Summary of Care Provided Yes Wound debrided: left lateral plantar Laterality: Left Type of Debridement: Selective debridement Anesthesia Used: 4% Lidocaine Solution Depth: Down to and including healthy tissue and in the subcutaneous layer Percentage of wound debrided: 100 Instrument Used: #15 blade and Forceps Tissue Removed: Yellow slough, devitalized tissue Severity: Fat Layer Exposed Amount of bleeding with debridement: Mild Bleeding Controlled with: Compression and gauze Patient tolerated procedure: Patient tolerated procedure well
[2020-10-12 10:18] VITALS: BP 150/77; PULSE 72; RESP 18; TEMP 36.6; BMI 29.2
--- NOTE | 2020-10-12 14:39 | PN.PCM_ITS ---
History of Present Illness Date of Service: 10/12/20 Chief Complaint: nonhealing wound left plantar foot History of Wound: Jose J is a 65 y/o gentleman that presents to the wound healing center for evaluation and treatment of a wound to his left plantar foot. He is a patient of Dr. Giordano. He has had a wound to this same area in February 2019 and was seen at [facility] [place] and treated there for 9 weeks with Aquacel and was placed in a wedge shoe to offload his foot. He was treated for this same wound for almost a year at this wound center and was healed in May 2020. He has undergone vascular testing at [facility] in 2018. 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 He and his did not want to do surgery. He began developing pain and callous and moderate to heavy drainage at the end of June. His has been dressing the wound with Aquacel for the last several weeks as that was what he was treated with previously. He had a prescription for doxycycline that he started when it was draining. He denies fever or chills or nausea. He had a CT scan last year of his foot also and these results were previously reviewed and do not show osteomyelitis. He keeps walking on his foot in a steel toe boot 4-5 days a week. He had an offloading pad in his work boot but has not changed that since being discharged in May. He denies claudication with walking. He had vascular studies performed last February at an outside facility and these have been requested but never received. He denies fever, chill, nausea, vomiting, redness or odor. Subjective Subjective Jose J was seen today for follow up for his left plantar ulcer. He has had occasional pain but no drainage.?Has not needed to start doxycycline again. Continues to wear his modified work boot. He denies fever, chills, increased drainage or odor. Objective Data Objective Data Vital Signs: Vital Signs Temp Pulse Resp BP 98 F 72 18 150/77 H 10/12/20 10:18 10/12/20 10:18 10/12/20 10:18 10/12/20 10:18 Weight: 108.862 kg Body Mass Index (BMI) 29.2 Physical Exam Const alert and oriented x3 General Appearance: cooperative HEENT normocephalic and head/scalp atraumatic Resp normal respiratory effort Cardio regular rate and regular rhythm Skin Wounds: wounds noted Wound Narrative: as in clinical data Psych mental status grossly normal and affect normal Appearance: grossly normal and appropriate Debridement Note Debridement Note Wound debrided: left lateral plantar Laterality: Left Depth: Down to and including healthy tissue Patient tolerated procedure: Patient tolerated procedure well No debridement was completed: No debridement was completed today Assessment/Plan Assessment/Plan (1) Abscess of left foot excluding toes: CODE(S): L02.612 - Cutaneous abscess of left foot (2) Non-healing ulcer of left foot with fat layer exposed: CODE(S): L97.522 - Non-pressure chronic ulcer of other part of left foot with fat layer exposed (3) Delayed wound healing: CODE(S): T14.8XXD - Other injury of unspecified body region, subsequent encounter (4) Chronic ulcer of left foot with fat layer exposed: CODE(S): L97.522 - Non-pressure chronic ulcer of other part of left foot with fat layer exposed PLAN: Assessment: left lateral plantar foot chronic ulcer. delayed healing. h/o infection and cellulitis. Foot deformity including hammertoe tailor bunion, left Plan: The patient was evaluated and his ulcer is healed today. His ulcer is caused from chronic pressure at the site of his 5th metatarsal head. This will continue to recur unless he maintains proper offloading and treatment. Stressed importance of offloading and work boot insole was instructed to be modified and encouraged for him to continue to use. He will be discharged from treatment today and advised to return if he develops breakdown of the area in the future.
== END 2020-10-12 10:51 | disposition home or self-care (01) ==
LOC: WC 10:00
PROVIDERS: PCP Family Medicine; Visit Provider Family Medicine
DX: L97.422 Non-pressure chronic ulcer of left heel and midfoot with fat layer exposed (principal); L02.612 Cutaneous abscess of left foot; M20.42 Other hammer toe(s) (acquired), left foot; M21.612 Bunion of left foot; Z79.899 Other long term (current) drug therapy
CPT/HCPCS: 97597; 99213; G0463

== ENCOUNTER 2023-02-20 09:30 | Outpatient (RCR) | payer BC, SELFPAY ==
[2023-02-13 09:47] VITALS: BP 143/71; PULSE 76; RESP 18
--- NOTE | 2023-02-13 13:40 | PN.PCM_ITS ---
History of Present Illness Date of Service: 02/13/23 Chief Complaint: nonhealing wound left plantar foot History of Wound: Jose J is a 67 y/o gentleman that presents to the wound healing center for evaluation and treatment of a wound to his left plantar foot. He is a patient of Dr. Giordano. He has had a wound to this same area in February 2019 and was seen at [facility] and treated there for 9 weeks with Aquacel and was placed in a wedge shoe to offload his foot. He was treated for this same wound for almost a year at this wound center and was healed in May 2020 and returned in July and was treated until September. He has undergone vascular testing at [facility] in 2018 but not since that time. 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 He and his did not want to do surgery. He has managed to do well over the last 2 years until the end of October when the area became painful again and began draining. He saw Dr. Giordano and was treated with doxycycline which helped and they had been applying Aquacel that they had from previous treatment but it has not improved. He was treated with a second course of doxycycline and then referred here for treatment. He is still working and walking on his foot in a steel toe boot 4 days a week for 10 hours. He had an offloading pad in his work boot previously but no longer has this in place. He denies claudication with walking. He has moderate to heavy drainage from the ulcer. He has not had any wound cultures taken. 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 He denies fever, chill, nausea, vomiting, redness or odor. Objective Data Objective Data Vital Signs: Vital Signs Pulse Resp BP O2 Del Method 76 18 143/71 H Room Air 02/13/23 09:47 02/13/23 09:47 02/13/23 09:47 02/13/23 09:47 Oxygen Delivery Method Room Air Physical Exam Const alert, oriented x3 and no apparent distress General Appearance: cooperative and comfortable HEENT normocephalic and head/scalp atraumatic Resp normal respiratory effort Effort and Inspection: able to speak in complete sentences Cardio regular rate and regular rhythm Skin Wounds: wounds noted Wound Narrative: as in clinical panel Psych mental status grossly normal, thought process normal, cooperative and affect normal Debridement Note Debridement Note Wound debrided: left lateral plantar foot ulcer Laterality: Left Wound Grade/Stage: Stage 3 Type of Debridement: Excisional debridement Anesthesia Used: 4% Lidocaine Solution and 5% Lidocaine Gel Depth: Down to and including healthy tissue and in the subcutaneous layer Percentage of wound debrided: 100 Instrument Used: #15 blade and Forceps Tissue Removed: Yellow slough, devitalized tissue Severity: Fat Layer Exposed Amount of bleeding with debridement: Mild Bleeding Controlled with: Compression and gauze Patient tolerated procedure: Patient tolerated procedure well Post-Debridement Measurements and Additional Note: Post-Debridement Measurements/Treatment WC - Nurse 1 - General Ulcer Assessment Start: 02/13/23 09:47 Freq: Status: Active Protocol: KANIKA Activity Type Activity Date Activity User E-sign Co-sign Detail Recorded Client Recorded Date Recorded By Document 02/13/23 09:47 NV [email or web address] 02/13/23 10:01 NV 02/13/23 09:47 WC - Today's Visit Information Type of service Follow-up Visit (Physician/KISS MIXER ) Arrival Mode Ambulatory Accompanied by - Corinne Patient Identification Verified (Name & Yes ) Blood Sugar Stated by Patient Vital Signs Pulse Rate (60-100) 76 Pulse Location Monitor Respiratory Rate (12-18) 18 Respiratory rate source Observation Oxygen Delivery Method Room Air Blood Pressure (90/60-120/80) 143/71 H Blood Pressure Mean (mm Hg) 95 Source Monitor Position Sitting Blood Pressure Location Left Arm History Since Last Visit- (Skip if this is Patient's initial visit) Has compression in place as prescribed N/A Has offloadiing in place as prescribed N/A Left Footwear Regular Shoe Right Footwear Regular Shoe Pain Scale: 0-10 Numeric Is Patient Pain Free? No - Nurse 1 - General Ulcer Measurement Start: 02/13/23 09:47 Freq: Status: Active Protocol: Activity Type Activity Date Activity User E-sign Co-sign Detail Recorded Client Recorded Date Recorded By Document 02/13/23 09:47 NV [email or web address] 02/13/23 10:01 NV 02/13/23 09:47 Wound Center Nurse 1 #3 L Lateral Plantar Foot -Current Size (cm) - Length 0.5 -Current Size (cm) - Width 1.2 -Current Size (cm) - Depth 0.2 -Total Square Cm 0.60 -Date of Last Picture (Recall this 02/13/23 field) -Photo Taken Yes -Undermining/Tunneling Yes -Undermining/Tunneling Starts (O'clock 10 ) -Undermining/Tunneling Ends (O'clock) 2 -Maximum Distance (cm) 0.3 -Exudate Amt Small -Exudate Type Serosanguineous -Wound Margin Thickened & Rolled Under -Granulation Amt Large (67-100%) -Granulation Quality Pale,[place] -Necrosis Amt Small (1-33%) -Necrotic Tissue Type Adherent Slough -Texture (Flory-wound Skin Appearance) Assessed -Moisture (Flory-wound Skin Appearance) Assessed -Color (Flory-wound Skin Appearance) Assessed -Temperature (Flory-wound Skin No Abnormality Appearance) (Pt Warm) -Tenderness on Palpation (Flory-wound No Skin Appearance) -Ulcer Cleansing Rinsed/ Irrigated with Saline -Foul Odor after Cleansing No -Anesthetic Used 5% Lidocaine Gel Lower Limb Edema Present NA WC - Nurse 2 - General Ulcer CM Notes Start: 02/13/23 09:47 Freq: Status: Active Protocol: Activity Type Activity Date Activity User E-sign Co-sign Detail Recorded Client Recorded Date Recorded By Document 02/13/23 13:07 SARAH [id number] 02/13/23 13:09 SARAH 02/13/23 13:07 Wound Center Nurse 2 #3 L Lateral Plantar Foot -Time 10:35 -Correct Patient Yes -Correct Side, Site, Position Yes -Correct Procedure Yes -Procedure Performed Yes -Type of Procedure Debridement -Clinical Debridement Subcutaneous -Tissue Removed Subcutaneous -Post Debridement (cm) - Length 0.8 -Post Debridement (cm) - Width 1.1 -Post Debridement (cm) - Depth 0.2 -Total Square (Post) (cm) 0.88 -Area of Debridement (cm) - Length 0.8 -Area of Debridement (cm) - Width 1.1 -Total Square (Area) (cm) 0.88 -Tunneling No -Undermining/Tunneling No -Circular Undermining No -Wound/Ulcer Outcome Not Healed -Ulcer Cleansing Rinsed/ Irrigated with Saline -Foul Odor after Cleansing No -Bioengineered Tissue No -Bleeding Controlled with Pressure -Treatment Response Procedure Tolerated Well -Debridement - Subq, 1st 20sq cm Yes Pain Scale: 0-10 Numeric Is Patient Pain Free? Yes - Nurse 3 - General Ulcer D/C NN Start: 02/13/23 09:47 Freq: Status: Active Protocol: Activity Type Activity Date Activity User E-sign Co-sign Detail Recorded Client Recorded Date Recorded By Document 02/13/23 11:03 RB Desktop 02/13/23 11:04 RB 02/13/23 11:03 Wound Care Center Nurse 3 #3 L Lateral Plantar Foot -Ulcer Cleansing Rinsed/ Irrigated with Saline -Primary Dressing Applied Aquacel AG 4x4, Mepilex Border -Aquacel AG 4x4 1 -Mepilex Border 1 Treatment Response Procedure Tolerated Well Pain Scale: 0-10 Numeric Is Patient Pain Free? Yes Teaching: Wound Center Dressing Your Wound -Person Taught Patient,Family -Teaching Method Discussion, Demonstration -Response to teaching Verbalize understanding WC - Visit Discharge Discharge Condition Stable Ambulatory Status Ambulatory Transportation Private Auto Medication Reconcilliation completed & No provided to patient/care provider Clinical Summary of Care Provided Yes Assessment/Plan Assessment/Plan (1) Abscess of left foot excluding toes: CODE(S): L02.612 - Cutaneous abscess of left foot (2) Delayed wound healing: CODE(S): T14.8XXD - Other injury of unspecified body region, subsequent encounter (3) Chronic ulcer of left foot with fat layer exposed: CODE(S): L97.522 - Non-pressure chronic ulcer of other part of left foot with fat layer exposed (4) HTN (hypertension): CODE(S): I10 - Essential (primary) hypertension QUALIFIERS: Hypertension type: primary hypertension Qualified Code(s): I10 - Essential (primary) hypertension (5) Pressure ulcer of left foot, stage 3: CODE(S): L89.893 - Pressure ulcer of other site, stage 3 PLAN: Plan Debridement performed today in clinic as annotated above. At home wound-care instructions: Wash ulcer daily with antibacterial soap and water. Apply Aquacel Ag to ulcer and cover with foam dressing daily. Keep dressing clean and dry. Advised to bring in his work boot and will creat offloading cushion for the sole of his work boot to decrease pressure. Off-loading: The patient was instructed to avoid pressure and friction on the affected areas. Reposition every 2 hours at minimum. Avoid prolonged standing and/or dangling of legs. When seated, feet should be elevated at chest level. Frequent ambulation is encouraged. Diet: Patient encouraged to increase protein intake while taking caution to avoid high carbohydrate and/or sugar intake. Labs/cultures/imaging: Wound culture taken today. Will treat based on results. Follow-up: Return in 1 week for wound care follow up. Return sooner or report to the emergency room should symptoms worsen, or new symptoms arise. Note: [employer] speech recognition operations label clerk software was used to create portions of this document. Sound-alike and misspelled words, as well as other operations label clerk errors may be contained in the documentation.
[2023-02-20 09:59] VITALS: BP 139/74; PULSE 73; RESP 18; TEMP 36
--- NOTE | 2023-02-20 10:42 | PCM.WC.PN ---
History of Present Illness Date of Service: 02/20/23 Chief Complaint: nonhealing wound left plantar foot History of Wound: Jose J is a 67 y/o gentleman that presents to the wound healing center for evaluation and treatment of a wound to his left plantar foot. He is a patient of Dr. Giordano. He has had a wound to this same area in February 2019 [address] at [facility] [place] and treated there for 9 weeks with Aquacel and was placed in a wedge shoe to offload his foot. He was treated for this same wound for almost a year at this wound center and was healed in May 2020 and returned in July and was treated until September. He has undergone vascular testing at [facility] in 2018 but not since that time. 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 He and his did not want to do surgery. He has managed to do well over the last 2 years until the end of October when the area became painful again and began draining. He saw Dr. Giordano and was treated with doxycycline which helped and they had been applying Aquacel that they had from previous treatment but it has not improved. He was treated with a second course of doxycycline and then referred here for treatment. He is still working and walking on his foot in a steel toe boot 4 days a week for 10 hours. He had an offloading pad in his work boot previously but no longer has this in place. He denies claudication with walking. He has moderate to heavy drainage from the ulcer. He has not had any wound cultures taken. 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 He denies fever, chill, nausea, vomiting, redness or odor. Subjective Subjective Jose J returns today for follow up of an ulcer on the bottom of his left foot. He modified his work boot to alleviate pressure to the site of the ulcer of his left foot. He has been tolerating the Aquacel Ag but he did not receive foam dressings that were ordered and his is using band aids which have been holding moisture. The area is macerated and is not better but not worse. He denies fever, chills, increased drainage or odor. Objective Data Objective Data Vital Signs: Vital Signs Temp Pulse Resp BP O2 Del Method 96.8 F L 73 18 139/74 H Room Air 02/20/23 09:59 02/20/23 09:59 02/20/23 09:59 02/20/23 09:59 02/13/23 09:47 Oxygen Delivery Method Room Air Lab / Micro Data Micro: Microbiology 02/13/23 10:45 Wound - Left Foot Gram Stain - Final 02/13/23 10:45 Wound - Left Foot Wound Culture - Final Streptococcus agalactiae (B) Staphylococcus simulans Corynebacterium minutissimum 02/13/23 10:45 Wound - Left Foot Anaerobic Culture - Final Bacteroides fragilis group Physical Exam Const alert, oriented x3 and no apparent distress General Appearance: cooperative and comfortable HEENT normocephalic and head/scalp atraumatic Resp normal respiratory effort Effort and Inspection: able to speak in complete sentences Cardio regular rate and regular rhythm Skin Wounds: wounds noted Wound Narrative: as in clinical panel Psych mental status grossly normal, thought process normal, cooperative and affect normal Debridement Note Debridement Note Wound debrided: left lateral plantar foot ulcer Laterality: Left Wound Grade/Stage: Stage 3 Type of Debridement: Excisional debridement Anesthesia Used: 4% Lidocaine Solution and 5% Lidocaine Gel Depth: Down to and including healthy tissue and in the subcutaneous layer Percentage of wound debrided: 100 Instrument Used: 5mm curette, #15 blade and Forceps Tissue Removed: Yellow slough, devitalized tissue Severity: Fat Layer Exposed Amount of bleeding with debridement: Mild Bleeding Controlled with: Compression and gauze Patient tolerated procedure: Patient tolerated procedure well Post-Debridement Measurements and Additional Note: Post-Debridement Measurements/Treatment - Nurse 1 - General Ulcer Assessment Start: 02/13/23 09:47 Freq: Status: Active Protocol: KANIKA Activity Type Activity Date Activity User E-sign Co-sign Detail Recorded Client Recorded Date Recorded By Document 02/13/23 09:47 MT Desktop 02/13/23 10:01 MT Document 02/20/23 09:59 RB Desktop 02/20/23 10:01 RB 02/13/23 02/20/23 09:47 09:59 - Today's Visit Information Type of service Follow-up Visit Follow-up Visit (Physician/TREATMENT SPECIALIST (Physician/TREATMENT SPECIALIST ) ) Arrival Mode Ambulatory Ambulatory Transfer Assistance None Accompanied by - Corinne Patient Identification Verified (Name & Yes Yes ) Patient Requires Transmission-Based No Precautions Blood Sugar Stated by Patient Vital Signs Temperature (97.8 F-99.1 F) 96.8 F L Temperature Source Temporal Pulse Rate (60-100) 76 73 Pulse Location Monitor Monitor Respiratory Rate (12-18) 18 18 Respiratory rate source Observation Observation Oxygen Delivery Method Room Air Blood Pressure (90/60-120/80) 143/71 H 139/74 H Blood Pressure Mean (mm Hg) 95 95 Source Monitor Monitor Position Sitting Semi-Fowlers Blood Pressure Location Left Arm Left Arm History Since Last Visit- (Skip if this is Patient's initial visit) Have you changed medications since your No last visit? Any new allergies or adverse reactions No Had a fall/change in ADL's that may No increase risk of falls Signs or symptoms of abuse and/or No neglect since last visit Have you been in the hospital since your No last visit? Has dressing in place as prescribed Yes Has compression in place as prescribed N/A Has offloadiing in place as prescribed N/A No Experienced any changes in pain level or No management Left Footwear Regular Shoe Right Footwear Regular Shoe Pain Scale: 0-10 Numeric Is Patient Pain Free? No Yes WC - Nurse 1 - General Ulcer Measurement Start: 02/13/23 09:47 Freq: Status: Active Protocol: Activity Type Activity Date Activity User E-sign Co-sign Detail Recorded Client Recorded Date Recorded By Document 02/13/23 09:47 MT Desktop 02/13/23 10:01 MT Document 02/20/23 09:59 RB Desktop 02/20/23 10:01 02/13/23 02/20/23 09:47 09:59 Wound Center Nurse 1 #3 L Lateral Plantar Foot -Combined with other wound No -Current Size (cm) - Length 0.5 0.5 -Current Size (cm) - Width 1.2 1 -Current Size (cm) - Depth 0.2 0.1 -Total Square Cm 0.60 0.5 -Date of Last Picture (Recall this 02/13/23 field) -Photo Taken Yes -Tunneling No -Undermining/Tunneling Yes No -Undermining/Tunneling Starts (O'clock 10 ) -Undermining/Tunneling Ends (O'clock) 2 -Maximum Distance (cm) 0.3 -Circular Undermining No -Exudate Amt Small Medium -Exudate Type Serosanguineous Serosanguineous -Wound Margin Thickened & Distinct, Rolled Under Outline Attached -Granulation Amt Large (67-100%) Medium (34-66%) -Granulation Quality Pale,Sheridan Sheridan -Slough/Fibrin Yes -Necrosis Amt Small (1-33%) Medium (34-66%) -Necrotic Tissue Type Adherent Slough Adherent Slough -Structure Exposed N/A -Texture (Flory-wound Skin Appearance) Assessed Assessed -Moisture (Flory-wound Skin Appearance) Assessed Assessed -Color (Flory-wound Skin Appearance) Assessed Assessed -Temperature (Flory-wound Skin No Abnormality No Abnormality Appearance) (Pt Warm) (Pt Warm) -Tenderness on Palpation (Flory-wound No No Skin Appearance) -Ulcer Cleansing Rinsed/ Wound Cleanser Irrigated with Saline -Foul Odor after Cleansing No No -Anesthetic Used 5% Lidocaine 5% Lidocaine Gel Gel Lower Limb Edema Present NA WC - Nurse 2 - General Ulcer CM Notes Start: 02/13/23 09:47 Freq: Status: Active Protocol: Activity Type Activity Date Activity User E-sign Co-sign Detail Recorded Client Recorded Date Recorded By Document 02/13/23 13:07 SARAH [id number] 02/13/23 13:09 SARAH 02/13/23 13:07 Wound Center Nurse 2 -Time 10:35 -Correct Patient Yes -Correct Side, Site, Position Yes -Correct Procedure Yes -Procedure Performed Yes -Type of Procedure Debridement -Clinical Debridement Subcutaneous -Tissue Removed Subcutaneous -Post Debridement (cm) - Length 0.8 -Post Debridement (cm) - Width 1.1 -Post Debridement (cm) - Depth 0.2 -Total Square (Post) (cm) 0.88 -Area of Debridement (cm) - Length 0.8 -Area of Debridement (cm) - Width 1.1 -Total Square (Area) (cm) 0.88 -Tunneling No -Undermining/Tunneling No -Circular Undermining No -Wound/Ulcer Outcome Not Healed -Ulcer Cleansing Rinsed/ Irrigated with Saline -Foul Odor after Cleansing No -Bioengineered Tissue No -Bleeding Controlled with Pressure -Treatment Response Procedure Tolerated Well -Debridement - Subq, 1st 20sq cm Yes Pain Scale: 0-10 Numeric Is Patient Pain Free? Yes WC - Nurse 3 - General Ulcer D/C NN Start: 02/13/23 09:47 Freq: Status: Active Protocol: Activity Type Activity Date Activity User E-sign Co-sign Detail Recorded Client Recorded Date Recorded By Document 02/13/23 11:03 RB Desktop 02/13/23 11:04 RB 02/13/23 11:03 Wound Care Center Nurse 3 #3 L Lateral Plantar Foot -Ulcer Cleansing Rinsed/ Irrigated with Saline -Primary Dressing Applied Aquacel AG 4x4, Mepilex Border -Aquacel AG 4x4 1 -Mepilex Border 1 Treatment Response Procedure Tolerated Well Pain Scale: 0-10 Numeric Is Patient Pain Free? Yes Teaching: Wound Center Dressing Your Wound -Person Taught Patient,Family -Teaching Method Discussion, Demonstration -Response to teaching Verbalize understanding WC - Visit Discharge Discharge Condition Stable Ambulatory Status Ambulatory Transportation Private Auto Medication Reconcilliation completed & No provided to patient/care provider Clinical Summary of Care Provided Yes Assessment/Plan Assessment/Plan (1) Abscess of left foot excluding toes: CODE(S): L02.612 - Cutaneous abscess of left foot (2) Delayed wound healing: CODE(S): T14.8XXD - Other injury of unspecified body region, subsequent encounter (3) Chronic ulcer of left foot with fat layer exposed: CODE(S): L97.522 - Non-pressure chronic ulcer of other part of left foot with fat layer exposed (4) HTN (hypertension): CODE(S): I10 - Essential (primary) hypertension QUALIFIERS: Hypertension type: primary hypertension Qualified Code(s): I10 - Essential (primary) hypertension (5) Pressure ulcer of left foot, stage 3: CODE(S): L89.893 - Pressure ulcer of other site, stage 3 PLAN: Plan Debridement performed today in clinic as annotated above. At home wound-care instructions: Wash ulcer daily with antibacterial soap and water. Apply Aquacel Ag to ulcer and cover with gauze or foam dressing daily. Keep dressing clean and dry. He modified the insole of his work boot to offload pressure to the area of his left foot. Wound culture was positive for anaerobic bacteria and strep, staph and corynebacterium. Cefdinir and Flagyl prescribed today based on sensitivities and allergies. Off-loading: The patient was instructed to avoid pressure and friction on the affected areas. Reposition every 2 hours at minimum. Avoid prolonged standing and/or dangling of legs. When seated, feet should be elevated at chest level. Frequent ambulation is encouraged. Diet: Patient encouraged to increase protein intake while taking caution to avoid high carbohydrate and/or sugar intake. Labs/cultures/imaging: Wound culture was positive for anaerobic bacteria - Bacteroides and aerobic bacteria - strep, staph and corynebacterium. Follow-up: Return in 1 week for wound care follow up. Return sooner or report to the emergency room should symptoms worsen, or new symptoms arise. Note: [employer] speech recognition evaporative cooler installer software was used to create portions of this document. Sound-alike and misspelled words, as well as other evaporative cooler installer errors may be contained in the documentation.
== END 2023-02-21 23:59 | disposition home or self-care (01) ==
LOC: WC 09:30
PROVIDERS: PCP Family Medicine; Referring Provider Family Medicine; Visit Provider Family Medicine
DX: L89.893 Pressure ulcer of other site, stage 3 (principal); L97.522 Non-pressure chronic ulcer of other part of left foot with fat layer exposed; L02.612 Cutaneous abscess of left foot; I10 Essential (primary) hypertension; Z79.899 Other long term (current) drug therapy
CPT/HCPCS: 11042; 87070; 87075; 87077; 87186; 87205; 99213; G0463

== ENCOUNTER 2023-03-13 10:00 | Outpatient (RCR) | payer BC, SELFPAY ==
[2023-02-22 00:33] VITALS: BP 139/74; PULSE 73; RESP 18; TEMP 36
[2023-02-27 09:30] VITALS: BP 129/64; PULSE 71; RESP 16; TEMP 36.1
--- NOTE | 2023-02-27 14:50 | PCM.WC.PN ---
History of Present Illness Date of Service: 02/27/23 Chief Complaint: nonhealing wound left plantar foot History of Wound: Jose J is a 67 y/o gentleman that presents to the wound healing center for evaluation and treatment of a wound to his left plantar foot. He is a patient of Dr. Giordano. He has had a wound to this same area in February 2019 and was seen at [facility] [place] and treated there for 9 weeks with Aquacel and was placed in a wedge shoe to offload his foot. He was treated for this same wound for almost a year at this wound center and was healed in May 2020 and returned in July and was treated until September. He has undergone vascular testing at [facility] in 2018 but not since that time. 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 He and his did not want to do surgery. He has managed to do well over the last 2 years until the end of October when the area became painful again and began draining. He saw Dr. Giordano and was treated with doxycycline which helped and they had been applying Aquacel that they had from previous treatment but it has not improved. He was treated with a second course of doxycycline and then referred here for treatment. He is still working and walking on his foot in a steel toe boot 4 days a week for 10 hours. He had an offloading pad in his work boot previously but no longer has this in place. He denies claudication with walking. He has moderate to heavy drainage from the ulcer. He has not had any wound cultures taken. 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 He denies fever, chill, nausea, vomiting, redness or odor. Subjective Subjective Jose J returns today for follow up of an ulcer on the bottom of his left foot. He modified his work boot to alleviate pressure to the site of the ulcer of his left foot. He has been tolerating the Aquacel Ag. The area is slightly better. He denies fever, chills, increased drainage or odor. Objective Data Objective Data Vital Signs: Vital Signs Temp Pulse Resp BP O2 Del Method 96.9 F L 71 16 129/64 H Room Air 02/27/23 09:30 02/27/23 09:30 02/27/23 09:30 02/27/23 09:30 02/27/23 09:30 Oxygen Delivery Method Room Air Physical Exam Const alert, oriented x3 and no apparent distress General Appearance: cooperative and comfortable HEENT normocephalic and head/scalp atraumatic Resp normal respiratory effort Effort and Inspection: able to speak in complete sentences Cardio regular rate and regular rhythm Skin Wounds: wounds noted Wound Narrative: as in clinical panel Psych mental status grossly normal, thought process normal, cooperative and affect normal Debridement Note Debridement Note Wound debrided: left lateral plantar foot ulcer Laterality: Left Wound Grade/Stage: Stage 3 Type of Debridement: Excisional debridement Anesthesia Used: 4% Lidocaine Solution and 5% Lidocaine Gel Depth: Down to and including healthy tissue and in the subcutaneous layer Percentage of wound debrided: 100 Instrument Used: #15 blade and Forceps Tissue Removed: Yellow slough, devitalized tissue Severity: Fat Layer Exposed Amount of bleeding with debridement: Mild Bleeding Controlled with: Compression and gauze Patient tolerated procedure: Patient tolerated procedure well Post-Debridement Measurements and Additional Note: Post-Debridement Measurements/Treatment - Nurse 1 - General Ulcer Assessment Start: 02/27/23 09:30 Freq: Status: Active Protocol: KANIKA Activity Type Activity Date Activity User E-sign Co-sign Detail Recorded Client Recorded Date Recorded By Document 02/27/23 09:30 MW Desktop 02/27/23 09:37 MW 02/27/23 09:30 - Today's Visit Information Type of service Follow-up Visit (Physician/FACTORY HELPER ) Arrival Mode Ambulatory Accompanied by Patient Identification Verified (Name & Yes ) Patient Requires Transmission-Based No Precautions Safety Precautions NA Vital Signs Temperature (97.8 F-99.1 F) 96.9 F L Temperature Source Temporal Pulse Rate (60-100) 71 Pulse Location Monitor Respiratory Rate (12-18) 16 Respiratory rate source Observation Oxygen Delivery Method Room Air Blood Pressure (90/60-120/80) 129/64 H Blood Pressure Mean (mm Hg) 85 History Since Last Visit- (Skip if this is Patient's initial visit) Have you changed medications since your No last visit? Any new allergies or adverse reactions No Had a fall/change in ADL's that may No increase risk of falls Signs or symptoms of abuse and/or No neglect since last visit Have you been in the hospital since your No last visit? Has dressing in place as prescribed Yes Has compression in place as prescribed N/A Experienced any changes in pain level or No management Left Footwear Regular Shoe Right Footwear Regular Shoe Pain Scale: 0-10 Numeric Is Patient Pain Free? Yes WC - Nurse 1 - General Ulcer Measurement Start: 02/27/23 09:30 Freq: Status: Active Protocol: Activity Type Activity Date Activity User E-sign Co-sign Detail Recorded Client Recorded Date Recorded By Document 02/27/23 09:30 MW Desktop 02/27/23 09:37 MW 02/27/23 09:30 Wound Center Nurse 1 #3 L Lateral Plantar Foot -Current Size (cm) - Length 0.6 -Current Size (cm) - Width 1.0 -Current Size (cm) - Depth 0.2 -Total Square Cm 0.60 -Photo Taken No -Epithelialization Small 1-33% -Tunneling No -Undermining/Tunneling No -Circular Undermining No -Exudate Amt Medium -Exudate Type Serosanguineous -Wound Margin Flat & Intact -Granulation Amt Medium (34-66%) -Granulation Quality N/A -Slough/Fibrin No -Necrosis Amt None Present (0 %) -Necrotic Tissue Type Adherent Slough -Structure Exposed N/A -Texture (Flory-wound Skin Appearance) Assessed, Scarring -Moisture (Flory-wound Skin Appearance) Assessed, Maceration -Color (Flory-wound Skin Appearance) No Abnormality, Assessed -Temperature (Flory-wound Skin No Abnormality Appearance) (Pt Warm) -Tenderness on Palpation (Flory-wound Yes Skin Appearance) -Ulcer Cleansing Rinsed/ Irrigated with Saline -Foul Odor after Cleansing No -Anesthetic Used 5% Lidocaine Gel Lower Limb Edema Present No WC - Nurse 2 - General Ulcer CM Notes Start: 02/27/23 09:30 Freq: Status: Active Protocol: Activity Type Activity Date Activity User E-sign Co-sign Detail Recorded Client Recorded Date Recorded By Document 02/27/23 09:53 GM Desktop 02/27/23 10:11 GM 02/27/23 09:53 Wound Center Nurse 2 #3 L Lateral Plantar Foot -Time 09:53 -Correct Patient Yes -Correct Side, Site, Position Yes -Correct Procedure Yes -Procedure Performed Yes -Type of Procedure Debridement -Clinical Debridement Subcutaneous -Tissue Removed Subcutaneous -Post Debridement (cm) - Length 1.5 -Post Debridement (cm) - Width 1.5 -Post Debridement (cm) - Depth 0.2 -Total Square (Post) (cm) 2.25 -Area of Debridement (cm) - Length 1.5 -Area of Debridement (cm) - Width 1.5 -Total Square (Area) (cm) 2.25 -Tunneling No -Circular Undermining No -Wound/Ulcer Outcome Not Healed -Ulcer Cleansing Rinsed/ Irrigated with Saline -Foul Odor after Cleansing No -Bioengineered Tissue No -Bleeding Controlled with Pressure -Treatment Response Procedure Tolerated Well -Offloading No -Debridement - Subq, 1st 20sq cm Yes Pain Scale: 0-10 Numeric Is Patient Pain Free? Yes - Nurse 3 - General Ulcer D/C NN Start: 02/27/23 09:30 Freq: Status: Active Protocol: Activity Type Activity Date Activity User E-sign Co-sign Detail Recorded Client Recorded Date Recorded By Document 02/27/23 12:29 [id number] 02/27/23 12:29 02/27/23 12:29 Wound Care Center Nurse 3 #3 L Lateral Plantar Foot -Ulcer Cleansing Rinsed/ Irrigated with Saline -Primary Dressing Applied Aquacel AG 4x4, Mepilex Border -Aquacel AG 2x2 1 -Aquacel AG 4x4 1 -Mepilex Border 1 Treatment Response Procedure Tolerated Well Pain Scale: 0-10 Numeric Is Patient Pain Free? Yes WC - Visit Discharge Discharge Condition Stable Ambulatory Status Ambulatory Transportation Private Auto Medication Reconcilliation completed & No provided to patient/care provider Clinical Summary of Care Provided Yes Assessment/Plan Assessment/Plan (1) Abscess of left foot excluding toes: CODE(S): L02.612 - Cutaneous abscess of left foot (2) Delayed wound healing: CODE(S): T14.8XXD - Other injury of unspecified body region, subsequent encounter (3) Chronic ulcer of left foot with fat layer exposed: CODE(S): L97.522 - Non-pressure chronic ulcer of other part of left foot with fat layer exposed (4) HTN (hypertension): CODE(S): I10 - Essential (primary) hypertension QUALIFIERS: Hypertension type: primary hypertension Qualified Code(s): I10 - Essential (primary) hypertension (5) Pressure ulcer of left foot, stage 3: CODE(S): L89.893 - Pressure ulcer of other site, stage 3 PLAN: Plan Debridement performed today in clinic as annotated above. At home wound-care instructions: Wash ulcer daily with antibacterial soap and water. Apply Aquacel Ag to ulcer and cover with gauze or foam dressing daily. Keep dressing clean and dry. He modified the insole of his work boot to offload pressure to the area of his left foot. Wound culture was positive for anaerobic bacteria and strep, staph and corynebacterium. Will continue Flagyl. Off-loading: The patient was instructed to avoid pressure and friction on the affected areas. Reposition every 2 hours at minimum. Avoid prolonged standing and/or dangling of legs. When seated, feet should be elevated at chest level. Frequent ambulation is encouraged. Diet: Patient encouraged to increase protein intake while taking caution to avoid high carbohydrate and/or sugar intake. Labs/cultures/imaging: Wound culture was positive for anaerobic bacteria - Bacteroides and aerobic bacteria - strep, staph and corynebacterium. Follow-up: Return in 1 week for wound care follow up. Return sooner or report to the emergency room should symptoms worsen, or new symptoms arise. Note: [employer] speech recognition structural engineering technician software was used to create portions of this document. Sound-alike and misspelled words, as well as other structural engineering technician errors may be contained in the documentation.
[2023-03-06 10:25] VITALS: BP 129/74; PULSE 66; RESP 18; TEMP 36.4
--- NOTE | 2023-03-06 12:57 | PCM.WC.PN ---
History of Present Illness Date of Service: 03/06/23 Chief Complaint: nonhealing wound left plantar foot History of Wound: Jose J is a 67 y/o gentleman that presents to the wound healing center for evaluation and treatment of a wound to his left plantar foot. He is a patient of Dr. Giordano. He has had a wound to this same area in February 2019 and was seen at [facility] and treated there for 9 weeks with Aquacel and was placed in a wedge shoe to offload his foot. He was treated for this same wound for almost a year at this wound center and was healed in May 2020 and returned in July and was treated until September. He has undergone vascular testing at [facility] in 2018 but not since that time. 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 He and his did not want to do surgery. He has managed to do well over the last 2 years until the end of October when the area became painful again and began draining. He saw Dr. Giordano and was treated with doxycycline which helped and they had been applying Aquacel that they had from previous treatment but it has not improved. He was treated with a second course of doxycycline and then referred here for treatment. He is still working and walking on his foot in a steel toe boot 4 days a week for 10 hours. He had an offloading pad in his work boot previously but no longer has this in place. He denies claudication with walking. He has moderate to heavy drainage from the ulcer. He has not had any wound cultures taken. 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 He denies fever, chill, nausea, vomiting, redness or odor. Subjective Subjective Jose J returns today for follow up of an ulcer on the bottom of his left foot. He modified his work boot to alleviate pressure to the site of the ulcer of his left foot. He has been tolerating the Aquacel Ag. The area is slightly better. He denies fever, chills, increased drainage or odor. Objective Data Objective Data Vital Signs: Vital Signs Temp Pulse Resp BP O2 Del Method 97.5 F L 66 18 129/74 H Room Air 03/06/23 10:25 03/06/23 10:25 03/06/23 10:25 03/06/23 10:25 03/06/23 10:25 Oxygen Delivery Method Room Air Physical Exam Const alert, oriented x3 and no apparent distress General Appearance: cooperative and comfortable HEENT normocephalic and head/scalp atraumatic Resp normal respiratory effort Effort and Inspection: able to speak in complete sentences Cardio regular rate and regular rhythm Skin Wounds: wounds noted Wound Narrative: as in clinical panel Psych mental status grossly normal, thought process normal, cooperative and affect normal Debridement Note Debridement Note Wound debrided: left lateral plantar foot ulcer Laterality: Left Wound Grade/Stage: Stage 3 Type of Debridement: Excisional debridement Anesthesia Used: 4% Lidocaine Solution and 5% Lidocaine Gel Depth: Down to and including healthy tissue and in the subcutaneous layer Percentage of wound debrided: 100 Instrument Used: 5mm curette Tissue Removed: Yellow slough, devitalized tissue Severity: Fat Layer Exposed Amount of bleeding with debridement: Mild Bleeding Controlled with: Compression and gauze Patient tolerated procedure: Patient tolerated procedure well Post-Debridement Measurements and Additional Note: Post-Debridement Measurements/Treatment - Nurse 1 - General Ulcer Assessment Start: 02/27/23 09:30 Freq: Status: Active Protocol: [email or web address].[email or web address] Activity Type Activity Date Activity User E-sign Co-sign Detail Recorded Client Recorded Date Recorded By Document 02/27/23 09:30 MW Desktop 02/27/23 09:37 MW Document 03/06/23 10:25 MT Desktop 03/06/23 10:31 MT 02/27/23 03/06/23 09:30 10:25 - Today's Visit Information Type of service Follow-up Visit Follow-up Visit (Physician/OPTICAL MANAGER (Physician/OPTICAL MANAGER ) ) Arrival Mode Ambulatory Ambulatory Accompanied by Patient Identification Verified (Name & Yes Yes ) Patient Requires Transmission-Based No Precautions Safety Precautions NA Fall Prevention Vital Signs Temperature (97.8 F-99.1 F) 96.9 F L 97.5 F L Temperature Source Temporal Temporal Pulse Rate (60-100) 71 66 Pulse Location Monitor Monitor Respiratory Rate (12-18) 16 18 Respiratory rate source Observation Observation Oxygen Delivery Method Room Air Room Air Blood Pressure (90/60-120/80) 129/64 H 129/74 H Blood Pressure Mean (mm Hg) 85 92 Source Monitor Position Sitting Blood Pressure Location Left Arm History Since Last Visit- (Skip if this is Patient's initial visit) Have you changed medications since your No last visit? Any new allergies or adverse reactions No Had a fall/change in ADL's that may No increase risk of falls Signs or symptoms of abuse and/or No neglect since last visit Have you been in the hospital since your No No last visit? Has dressing in place as prescribed Yes Yes Has compression in place as prescribed N/A N/A Has offloadiing in place as prescribed N/A Experienced any changes in pain level or No No management Left Footwear Regular Shoe Regular Shoe Right Footwear Regular Shoe Regular Shoe Pain Scale: 0-10 Numeric Is Patient Pain Free? Yes Yes WC - Nurse 1 - General Ulcer Measurement Start: 02/27/23 09:30 Freq: Status: Active Protocol: Activity Type Activity Date Activity User E-sign Co-sign Detail Recorded Client Recorded Date Recorded By Document 02/27/23 09:30 MW Desktop 02/27/23 09:37 MW Document 03/06/23 10:25 MT Desktop 03/06/23 10:31 MT 02/27/23 03/06/23 09:30 10:25 Wound Center Nurse 1 #3 L Lateral Plantar Foot -Current Size (cm) - Length 0.6 1 -Current Size (cm) - Width 1.0 1 -Current Size (cm) - Depth 0.2 0.1 -Total Square Cm 0.60 1 -Photo Taken No -Epithelialization Small 1-33% -Tunneling No No -Undermining/Tunneling No No -Circular Undermining No No -Exudate Amt Medium Small -Exudate Type Serosanguineous Serous -Wound Margin Flat & Intact Flat & Intact -Granulation Amt Medium (34-66%) Medium (34-66%) -Granulation Quality N/A Pale,[place] -Slough/Fibrin No -Necrosis Amt None Present (0 Small (1-33%) %) -Necrotic Tissue Type Adherent Slough Adherent Slough -Structure Exposed N/A -Texture (Flory-wound Skin Appearance) Assessed, Assessed Scarring -Moisture (Flory-wound Skin Appearance) Assessed, Assessed Maceration -Color (Flory-wound Skin Appearance) No Abnormality, Assessed Assessed -Temperature (Flory-wound Skin No Abnormality No Abnormality Appearance) (Pt Warm) (Pt Warm) -Tenderness on Palpation (Flory-wound Yes No Skin Appearance) -Ulcer Cleansing Rinsed/ Rinsed/ Irrigated with Irrigated with Saline Saline -Foul Odor after Cleansing No -Anesthetic Used 5% Lidocaine 5% Lidocaine Gel Gel Lower Limb Edema Present No NA WC - Nurse 2 - General Ulcer CM Notes Start: 02/27/23 09:30 Freq: Status: Active Protocol: Activity Type Activity Date Activity User E-sign Co-sign Detail Recorded Client Recorded Date Recorded By Document 02/27/23 09:53 Desktop 02/27/23 10:11 Document 03/06/23 10:37 Desktop 03/06/23 10:48 GM 02/27/23 03/06/23 09:53 10:37 Wound Center Nurse 2 #3 L Lateral Plantar Foot -Time 09:53 10:37 -Correct Patient Yes Yes -Correct Side, Site, Position Yes Yes -Correct Procedure Yes Yes -Procedure Performed Yes Yes -Type of Procedure Debridement Debridement -Clinical Debridement Subcutaneous Subcutaneous -Tissue Removed Subcutaneous Subcutaneous -Post Debridement (cm) - Length 1.5 1.0 -Post Debridement (cm) - Width 1.5 1.0 -Post Debridement (cm) - Depth 0.2 0.2 -Total Square (Post) (cm) 2.25 1.00 -Area of Debridement (cm) - Length 1.5 1.0 -Area of Debridement (cm) - Width 1.5 1.0 -Total Square (Area) (cm) 2.25 1.00 -Tunneling No No -Undermining/Tunneling No -Circular Undermining No No -Wound/Ulcer Outcome Not Healed Not Healed -Ulcer Cleansing Rinsed/ Rinsed/ Irrigated with Irrigated with Saline Saline -Foul Odor after Cleansing No No -Bioengineered Tissue No No -Bleeding Controlled with Pressure Pressure -Treatment Response Procedure Tolerated Well -Offloading No -Debridement - Subq, 1st 20sq cm Yes Yes Pain Scale: 0-10 Numeric Is Patient Pain Free? Yes Yes WC - Nurse 3 - General Ulcer D/C NN Start: 02/27/23 09:30 Freq: Status: Active Protocol: Activity Type Activity Date Activity User E-sign Co-sign Detail Recorded Client Recorded Date Recorded By Document 02/27/23 12:29 RB [id number] 02/27/23 12:29 RB Document 03/06/23 11:01 PR Desktop 03/06/23 11:04 PR 02/27/23 03/06/23 12:29 11:01 Wound Care Center Nurse 3 #3 L Lateral Plantar Foot -Ulcer Cleansing Rinsed/ Rinsed/ Irrigated with Irrigated with Saline Saline -Primary Dressing Applied Aquacel AG 4x4, Mepilex Border -Primary Dressing Covered/Secured with Dry Gauze -Aquacel AG 2x2 1 -Aquacel AG 4x4 1 -Mepilex Border 1 Treatment Response Procedure Tolerated Well Pain Scale: 0-10 Numeric Is Patient Pain Free? Yes Yes WC - Visit Discharge Discharge Condition Stable Stable Ambulatory Status Ambulatory Ambulatory Transportation Private Auto Private Auto Medication Reconcilliation completed & No No provided to patient/care provider Clinical Summary of Care Provided Yes Yes Notes: pt brought own supplies with him. Assessment/Plan Assessment/Plan (1) Abscess of left foot excluding toes: CODE(S): L02.612 - Cutaneous abscess of left foot (2) Delayed wound healing: CODE(S): T14.8XXD - Other injury of unspecified body region, subsequent encounter (3) Chronic ulcer of left foot with fat layer exposed: CODE(S): L97.522 - Non-pressure chronic ulcer of other part of left foot with fat layer exposed (4) HTN (hypertension): CODE(S): I10 - Essential (primary) hypertension QUALIFIERS: Hypertension type: primary hypertension Qualified Code(s): I10 - Essential (primary) hypertension (5) Pressure ulcer of left foot, stage 3: CODE(S): L89.893 - Pressure ulcer of other site, stage 3 PLAN: Plan Debridement performed today in clinic as annotated above. At home wound-care instructions: Wash ulcer daily with antibacterial soap and water. Apply Aquacel Ag to ulcer and cover with gauze or foam dressing daily. Keep dressing clean and dry. He modified the insole of his work boot to offload pressure to the area of his left foot. Wound culture was positive for anaerobic bacteria and strep, staph and corynebacterium. Will continue Flagyl. Off-loading: The patient was instructed to avoid pressure and friction on the affected areas. Reposition every 2 hours at minimum. Avoid prolonged standing and/or dangling of legs. When seated, feet should be elevated at chest level. Frequent ambulation is encouraged. Diet: Patient encouraged to increase protein intake while taking caution to avoid high carbohydrate and/or sugar intake. Labs/cultures/imaging: Wound culture was positive for anaerobic bacteria - Bacteroides and aerobic bacteria - strep, staph and corynebacterium. Follow-up: Return in 1 week for wound care follow up. Return sooner or report to the emergency room should symptoms worsen, or new symptoms arise. Note: [employer] speech recognition convention worker software was used to create portions of this document. Sound-alike and misspelled words, as well as other convention worker errors may be contained in the documentation.
[2023-03-13 09:53] VITALS: BP 140/74; PULSE 78; RESP 18; TEMP 36.4
--- NOTE | 2023-03-13 10:46 | PCM.WC.PN ---
History of Present Illness Date of Service: 03/13/23 Chief Complaint: nonhealing wound left plantar foot History of Wound: Jose J is a 67 y/o gentleman that presents to the wound healing center for evaluation and treatment of a wound to his left plantar foot. He is a patient of Dr. Giordano. He has had a wound to this same area in February 2019 and was seen at [facility] [place] and treated there for 9 weeks with Aquacel and was placed in a wedge shoe to offload his foot. He was treated for this same wound for almost a year at this wound center and was healed in May 2020 and returned in July and was treated until September. He has undergone vascular testing at [facility] in 2018 but not since that time. 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 He and his did not want to do surgery. He has managed to do well over the last 2 years until the end of October when the area became painful again and began draining. He saw Dr. Giordano and was treated with doxycycline which helped and they had been applying Aquacel that they had from previous treatment but it has not improved. He was treated with a second course of doxycycline and then referred here for treatment. He is still working and walking on his foot in a steel toe boot 4 days a week for 10 hours. He had an offloading pad in his work boot previously but no longer has this in place. He denies claudication with walking. He has moderate to heavy drainage from the ulcer. He has not had any wound cultures taken. 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 He denies fever, chill, nausea, vomiting, redness or odor. Subjective Subjective Jose J returns today for follow up of an ulcer on the bottom of his left foot. He modified his work boot to alleviate pressure to the site of the ulcer of his left foot. He has been tolerating the Aquacel Ag. The area is slightly better. He completed antibiotic treatment yesterday and there has been less drainage. He denies fever, chills, increased drainage or odor. Objective Data Objective Data Vital Signs: Vital Signs Temp Pulse Resp BP O2 Del Method 97.5 F L 78 18 140/74 H Room Air 10/20/23 09:53 03/13/23 09:53 03/13/23 09:53 03/13/23 09:53 03/13/23 09:53 Oxygen Delivery Method Room Air Physical Exam Const alert, oriented x3 and no apparent distress General Appearance: cooperative and comfortable HEENT normocephalic and head/scalp atraumatic Resp normal respiratory effort Effort and Inspection: able to speak in complete sentences Cardio regular rate and regular rhythm Skin Wounds: wounds noted Wound Narrative: as in clinical panel Psych mental status grossly normal, thought process normal, cooperative and affect normal Debridement Note Debridement Note Wound debrided: left lateral plantar foot ulcer Laterality: Left Wound Grade/Stage: Stage 3 Type of Debridement: Excisional debridement Anesthesia Used: 4% Lidocaine Solution and 5% Lidocaine Gel Depth: Down to and including healthy tissue and in the subcutaneous layer Percentage of wound debrided: 100 Instrument Used: #15 blade and Forceps Tissue Removed: Yellow slough, devitalized tissue Severity: Fat Layer Exposed Amount of bleeding with debridement: Mild Bleeding Controlled with: Compression and gauze Patient tolerated procedure: Patient tolerated procedure well Post-Debridement Measurements and Additional Note: Post-Debridement Measurements/Treatment - Nurse 1 - General Ulcer Assessment Start: 02/27/23 09:30 Freq: Status: Active Protocol: KANIKA Activity Type Activity Date Activity User E-sign Co-sign Detail Recorded Client Recorded Date Recorded By Document 02/27/23 09:30 MW Desktop 02/27/23 09:37 MW Document 03/06/23 10:25 MT Desktop 03/06/23 10:31 MT Document 03/13/23 09:53 MW Desktop 03/13/23 09:56 MW 02/27/23 03/06/23 03/13/23 09:30 10:25 09:53 - Today's Visit Information Type of service Follow-up Visit Follow-up Visit Follow-up Visit (Physician/SUCTION OPERATOR (Physician/SUCTION OPERATOR (Physician/SUCTION OPERATOR ) ) ) Arrival Mode Ambulatory Ambulatory Ambulatory Transfer Assistance None Accompanied by Patient Identification Verified (Name & Yes Yes Yes ) Patient Requires Transmission-Based No No Precautions Safety Precautions NA Fall Prevention Vital Signs Temperature (97.8 F-99.1 F) 96.9 F L 97.5 F L 97.5 F L Temperature Source Temporal Temporal Temporal Pulse Rate (60-100) 71 66 78 Pulse Location Monitor Monitor Monitor Respiratory Rate (12-18) 16 18 18 Respiratory rate source Observation Observation Observation Oxygen Delivery Method Room Air Room Air Room Air Blood Pressure (90/60-120/80) 129/64 H 129/74 H 140/74 H Blood Pressure Mean (mm Hg) 85 92 96 Source Monitor Monitor Position Sitting Sitting Blood Pressure Location Left Arm Right Arm History Since Last Visit- (Skip if this is Patient's initial visit) Have you changed medications since your No No last visit? Any new allergies or adverse reactions No No Had a fall/change in ADL's that may No No increase risk of falls Signs or symptoms of abuse and/or No No neglect since last visit Have you been in the hospital since your No No No last visit? Has dressing in place as prescribed Yes Yes Yes Has compression in place as prescribed N/A N/A No Has offloadiing in place as prescribed N/A N/A Experienced any changes in pain level or No No management Left Footwear Regular Shoe Regular Shoe Regular Shoe Right Footwear Regular Shoe Regular Shoe Regular Shoe Pain Scale: 0-10 Numeric Is Patient Pain Free? Yes Yes Yes WC - Nurse 1 - General Ulcer Measurement Start: 02/27/23 09:30 Freq: Status: Active Protocol: Activity Type Activity Date Activity User E-sign Co-sign Detail Recorded Client Recorded Date Recorded By Document 02/27/23 09:30 MW Desktop 02/27/23 09:37 MW Document 03/06/23 10:25 MT Desktop 03/06/23 10:31 MT Document 03/13/23 09:53 MW Desktop 03/13/23 09:56 MW 02/27/23 03/06/23 03/13/23 09:30 10:25 09:53 Wound Center Nurse 1 #3 L Lateral Plantar Foot -Combined with other wound No -Current Size (cm) - Length 0.6 1 0.9 -Current Size (cm) - Width 1.0 1 0.9 -Current Size (cm) - Depth 0.2 0.1 0.3 -Total Square Cm 0.60 1 0.81 -Photo Taken No No -Epithelialization Small 1-33% None Present -Tunneling No No No -Undermining/Tunneling No No No -Circular Undermining No No No -Exudate Amt Medium Small Medium -Exudate Type Serosanguineous Serous Serosanguineous -Wound Margin Flat & Intact Flat & Intact Distinct, Outline Attached -Granulation Amt Medium (34-66%) Medium (34-66%) None Present (0 %) -Granulation Quality N/A Pale,[place] N/A -Slough/Fibrin No Yes -Necrosis Amt None Present (0 Small (1-33%) Large (67-100%) %) -Necrotic Tissue Type Adherent Slough Adherent Slough Adherent Slough -Structure Exposed N/A N/A -Texture (Flory-wound Skin Appearance) Assessed, Assessed Assessed, Scarring Scarring -Moisture (Flory-wound Skin Appearance) Assessed, Assessed Assessed Maceration -Color (Flory-wound Skin Appearance) No Abnormality, Assessed Assessed Assessed -Temperature (Flory-wound Skin No Abnormality No Abnormality No Abnormality Appearance) (Pt Warm) (Pt Warm) (Pt Warm) -Tenderness on Palpation (Flory-wound Yes No No Skin Appearance) -Ulcer Cleansing Rinsed/ Rinsed/ Rinsed/ Irrigated with Irrigated with Irrigated with Saline Saline Saline -Foul Odor after Cleansing No No -Anesthetic Used 5% Lidocaine 5% Lidocaine 5% Lidocaine Gel Gel Gel Lower Limb Edema Present No NA No WC - Nurse 2 - General Ulcer CM Notes Start: 02/27/23 09:30 Freq: Status: Active Protocol: Activity Type Activity Date Activity User E-sign Co-sign Detail Recorded Client Recorded Date Recorded By Document 02/27/23 09:53 [facility] 02/27/23 10:11 Document 03/06/23 10:37 [facility] 03/06/23 10:48 Document 03/13/23 10:21 [email or web address] 03/13/23 10:30 02/27/23 03/06/23 03/13/23 09:53 10:37 10:21 Wound Center Nurse 2 #3 L Lateral Plantar Foot -Time 09:53 10:37 10:21 -Correct Patient Yes Yes Yes -Correct Side, Site, Position Yes Yes Yes -Correct Procedure Yes Yes Yes -Procedure Performed Yes Yes Yes -Type of Procedure Debridement Debridement Debridement -Clinical Debridement Subcutaneous Subcutaneous Subcutaneous -Tissue Removed Subcutaneous Subcutaneous Subcutaneous -Post Debridement (cm) - Length 1.5 1.0 1 -Post Debridement (cm) - Width 1.5 1.0 0.9 -Post Debridement (cm) - Depth 0.2 0.2 0.1 -Total Square (Post) (cm) 2.25 1.00 0.9 -Area of Debridement (cm) - Length 1.5 1.0 1 -Area of Debridement (cm) - Width 1.5 1.0 0.9 -Total Square (Area) (cm) 2.25 1.00 0.9 -Tunneling No No No -Undermining/Tunneling No No -Circular Undermining No No No -Wound/Ulcer Outcome Not Healed Not Healed Not Healed -Ulcer Cleansing Rinsed/ Rinsed/ Rinsed/ Irrigated with Irrigated with Irrigated with Saline Saline Saline -Foul Odor after Cleansing No No No -Bioengineered Tissue No No No -Bleeding Controlled with Pressure Pressure Pressure -Treatment Response Procedure Procedure Tolerated Well Tolerated Well -Offloading No -Debridement - Subq, 1st 20sq cm Yes Yes Yes Pain Scale: 0-10 Numeric Is Patient Pain Free? Yes Yes Yes WC - Nurse 3 - General Ulcer D/C NN Start: 02/27/23 09:30 Freq: Status: Active Protocol: Activity Type Activity Date Activity User E-sign Co-sign Detail Recorded Client Recorded Date Recorded By Document 02/27/23 12:29 RB [id number] 02/27/23 12:29 RB Document 03/06/23 11:01 MT Desktop 03/06/23 11:04 MT Document 03/13/23 10:39 MW Desktop 03/13/23 10:39 MW 02/27/23 03/06/23 03/13/23 12:29 11:01 10:39 Wound Care Center Nurse 3 #3 L Lateral Plantar Foot -Ulcer Cleansing Rinsed/ Rinsed/ Rinsed/ Irrigated with Irrigated with Irrigated with Saline Saline Saline -Foul Odor after Cleansing No -Negative Pressure Wound Therapy N/A -Primary Dressing Applied Aquacel AG 4x4, Mepilex Border -Other Dressing aquacel AG -Primary Dressing Covered/Secured with Dry Gauze -Other Covering [place] SAP foam dressing -Aquacel AG 2x2 1 -Aquacel AG 4x4 1 -Mepilex Border 1 Treatment Response Procedure Procedure Tolerated Well Tolerated Well Pain Scale: 0-10 Numeric Is Patient Pain Free? Yes Yes Yes Teaching: Wound Center Dressing Your Wound -Person Taught Patient,Family -Teaching Method Discussion, Demonstration -Response to teaching Verbalize understanding WC - Visit Discharge Discharge Condition Stable Stable Stable Ambulatory Status Ambulatory Ambulatory Ambulatory Transportation Private Auto Private Auto Private Auto Accompanied by Medication Reconcilliation completed & No No No provided to patient/care provider Clinical Summary of Care Provided Yes Yes Yes Notes: pt brought own supplies with him. Assessment/Plan Assessment/Plan (1) Abscess of left foot excluding toes: CODE(S): L02.612 - Cutaneous abscess of left foot (2) Delayed wound healing: CODE(S): T14.8XXD - Other injury of unspecified body region, subsequent encounter (3) Chronic ulcer of left foot with fat layer exposed: CODE(S): L97.522 - Non-pressure chronic ulcer of other part of left foot with fat layer exposed (4) HTN (hypertension): CODE(S): I10 - Essential (primary) hypertension QUALIFIERS: Hypertension type: primary hypertension Qualified Code(s): I10 - Essential (primary) hypertension (5) Pressure ulcer of left foot, stage 3: CODE(S): L89.893 - Pressure ulcer of other site, stage 3 PLAN: Plan Debridement performed today in clinic as annotated above. At home wound-care instructions: Wash ulcer daily with antibacterial soap and water. Apply Aquacel Ag to ulcer and cover with gauze or foam dressing daily. Keep dressing clean and dry. He modified the insole of his work boot to offload pressure to the area of his left foot. Wound culture was positive for anaerobic bacteria and strep, staph and corynebacterium. Completed Flagyl. Off-loading: The patient was instructed to avoid pressure and friction on the affected areas. Reposition every 2 hours at minimum. Avoid prolonged standing and/or dangling of legs. When seated, feet should be elevated at chest level. Frequent ambulation is encouraged. Diet: Patient encouraged to increase protein intake while taking caution to avoid high carbohydrate and/or sugar intake. Labs/cultures/imaging: Follow-up: Return in 1 week for wound care follow up. Return sooner or report to the emergency room should symptoms worsen, or new symptoms arise. Note: [employer] speech recognition retail support specialist software was used to create portions of this document. Sound-alike and misspelled words, as well as other retail support specialist errors may be contained in the documentation.
== END 2023-03-24 23:59 | disposition home or self-care (01) ==
LOC: WC 10:00
PROVIDERS: PCP Family Medicine; Referring Provider Family Medicine; Visit Provider Family Medicine
DX: L89.893 Pressure ulcer of other site, stage 3 (principal); L97.522 Non-pressure chronic ulcer of other part of left foot with fat layer exposed; L02.612 Cutaneous abscess of left foot; I10 Essential (primary) hypertension
CPT/HCPCS: 11042

== ENCOUNTER 2023-04-10 10:30 | Outpatient (RCR) | payer BC, SELFPAY ==
[2023-03-25 00:45] VITALS: BP 140/74; PULSE 78; RESP 18; TEMP 36.4
[2023-03-27 10:46] VITALS: BP 113/57; PULSE 77; RESP 18; TEMP 36.5
--- NOTE | 2023-03-27 14:00 | PCM.WC.PN ---
History of Present Illness Date of Service: 03/27/23 Chief Complaint: nonhealing wound left plantar foot History of Wound: Jose J is a 67 y/o gentleman that presents to the wound healing center for evaluation and treatment of a wound to his left plantar foot. He is a patient of Dr. Giordano. He has had a wound to this same area in February 2019 and was seen at [facility] [place] and treated there for 9 weeks with Aquacel and was placed in a wedge shoe to offload his foot. He was treated for this same wound for almost a year at this wound center and was healed in May 2020 and returned in July and was treated until September. He has undergone vascular testing at [facility] in 2018 but not since that time. 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 He and his did not want to do surgery. He has managed to do well over the last 2 years until the end of October when the area became painful again and began draining. He saw Dr. Giordano and was treated with doxycycline which helped and they had been applying Aquacel that they had from previous treatment but it has not improved. He was treated with a second course of doxycycline and then referred here for treatment. He is still working and walking on his foot in a steel toe boot 4 days a week for 10 hours. He had an offloading pad in his work boot previously but no longer has this in place. He denies claudication with walking. He has moderate to heavy drainage from the ulcer. He has not had any wound cultures taken. 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 He denies fever, chill, nausea, vomiting, redness or odor. Subjective Subjective Jose J returns today for follow up of an ulcer on the bottom of his left foot. He was ill last week and was not seen. He continues to wear his modified work boot to alleviate pressure to the site of the ulcer of his left foot. He has been tolerating the Aquacel Ag to the ulcer. The area is slightly worse. He has had increased drainage. He denies fever, chills or odor. Objective Data Objective Data Vital Signs: Vital Signs Temp Pulse Resp BP O2 Del Method 97.7 F L 77 18 113/57 L Room Air 03/27/23 10:46 03/27/23 10:46 03/27/23 10:46 03/27/23 10:46 03/27/23 10:46 Oxygen Delivery Method Room Air Physical Exam Const alert, oriented x3 and no apparent distress General Appearance: cooperative and comfortable HEENT normocephalic and head/scalp atraumatic Resp normal respiratory effort Effort and Inspection: able to speak in complete sentences Cardio regular rate and regular rhythm Skin Wounds: wounds noted Wound Narrative: as in clinical panel Psych mental status grossly normal, thought process normal, cooperative and affect normal Debridement Note Debridement Note Wound debrided: left lateral plantar foot ulcer Laterality: Left Wound Grade/Stage: Stage 3 Type of Debridement: Excisional debridement Anesthesia Used: 4% Lidocaine Solution and 5% Lidocaine Gel Depth: Down to and including healthy tissue and in the subcutaneous layer Percentage of wound debrided: 100 Instrument Used: #15 blade and Forceps Tissue Removed: Yellow slough, devitalized tissue Severity: Fat Layer Exposed Amount of bleeding with debridement: Mild Bleeding Controlled with: Compression and gauze Patient tolerated procedure: Patient tolerated procedure well Post-Debridement Measurements and Additional Note: Post-Debridement Measurements/Treatment - Nurse 1 - General Ulcer Assessment Start: 03/27/23 10:46 Freq: Status: Active Protocol: KANIKA Activity Type Activity Date Activity User E-sign Co-sign Detail Recorded Client Recorded Date Recorded By Document 03/27/23 10:46 [facility] Desktop 03/27/23 10:53 [facility] 03/27/23 10:46 - Today's Visit Information Type of service Follow-up Visit (Physician/TRANSPORTATION DIRECTOR ) Arrival Mode Ambulatory Transfer Assistance None Accompanied by Patient Identification Verified (Name & Yes ) Patient Requires Transmission-Based No Precautions Vital Signs Temperature (97.8 F-99.1 F) 97.7 F L Temperature Source Temporal Pulse Rate (60-100) 77 Pulse Location Monitor Respiratory Rate (12-18) 18 Respiratory rate source Observation Oxygen Delivery Method Room Air Blood Pressure (90/60-120/80) 113/57 L Blood Pressure Mean (mm Hg) 75 Source Monitor Position Sitting Blood Pressure Location Right Arm History Since Last Visit- (Skip if this is Patient's initial visit) Have you changed medications since your No last visit? Any new allergies or adverse reactions No Had a fall/change in ADL's that may No increase risk of falls Signs or symptoms of abuse and/or No neglect since last visit Have you been in the hospital since your No last visit? Has dressing in place as prescribed Yes Has compression in place as prescribed N/A Has offloadiing in place as prescribed N/A Experienced any changes in pain level or No management Left Footwear Regular Shoe Right Footwear Regular Shoe Pain Scale: 0-10 Numeric Is Patient Pain Free? Yes WC - Nurse 1 - General Ulcer Measurement Start: 03/27/23 10:46 Freq: Status: Active Protocol: Activity Type Activity Date Activity User E-sign Co-sign Detail Recorded Client Recorded Date Recorded By Document 03/27/23 10:46 [facility] Desktop 03/27/23 10:53 [facility] 03/27/23 10:46 Wound Center Nurse 1 #3 L Lateral Plantar Foot -Combined with other wound No -Current Size (cm) - Length 1 -Current Size (cm) - Width 0.9 -Current Size (cm) - Depth 0.3 -Total Square Cm 0.9 -Photo Taken No -Tunneling No -Undermining/Tunneling Yes -Undermining/Tunneling Starts (O'clock 10 ) -Undermining/Tunneling Ends (O'clock) 1 -Maximum Distance (cm) 0.3 -Circular Undermining No -Exudate Amt Medium -Exudate Type Serosanguineous -Wound Margin Distinct, Outline Attached -Granulation Amt Large (67-100%) -Granulation Quality [place] -Slough/Fibrin Yes -Necrosis Amt Small (1-33%) -Necrotic Tissue Type Adherent Slough -Texture (Flory-wound Skin Appearance) Assessed,Callus ,Scarring -Moisture (Flory-wound Skin Appearance) Assessed -Color (Flory-wound Skin Appearance) Assessed -Temperature (Flory-wound Skin No Abnormality Appearance) (Pt Warm) -Tenderness on Palpation (Flory-wound No Skin Appearance) -Ulcer Cleansing Rinsed/ Irrigated with Saline -Foul Odor after Cleansing No -Anesthetic Used 5% Lidocaine Gel QUOC - Nurse 2 - General Ulcer CM Notes Start: 03/27/23 10:46 Freq: Status: Active Protocol: Activity Type Activity Date Activity User E-sign Co-sign Detail Recorded Client Recorded Date Recorded By Document 03/27/23 11:03 Desktop 03/27/23 11:21 03/27/23 11:03 Wound Center Nurse 2 -Time 11:03 -Correct Patient Yes -Correct Side, Site, Position Yes -Correct Procedure Yes -Procedure Performed Yes -Type of Procedure Debridement -Clinical Debridement Subcutaneous -Tissue Removed Subcutaneous -Post Debridement (cm) - Length 1.2 -Post Debridement (cm) - Width 1.8 -Post Debridement (cm) - Depth 0.2 -Total Square (Post) (cm) 2.16 -Area of Debridement (cm) - Length 1.2 -Area of Debridement (cm) - Width 1.8 -Total Square (Area) (cm) 2.16 -Tunneling No -Undermining/Tunneling No -Circular Undermining No -Wound/Ulcer Outcome Not Healed -Ulcer Cleansing Rinsed/ Irrigated with Saline -Foul Odor after Cleansing No -Bioengineered Tissue No -Bleeding Controlled with Pressure -Treatment Response Procedure Tolerated Well -Debridement - Subq, 1st 20sq cm Yes Pain Scale: 0-10 Numeric Is Patient Pain Free? Yes - Nurse 3 - General Ulcer D/C NN Start: 03/27/23 10:46 Freq: Status: Active Protocol: Activity Type Activity Date Activity User E-sign Co-sign Detail Recorded Client Recorded Date Recorded By Document 03/27/23 11:28 [facility] 03/27/23 11:30 [facility] 03/27/23 11:28 Wound Care Center Nurse 3 #3 L Lateral Plantar Foot -Ulcer Cleansing Rinsed/ Irrigated with Saline -Foul Odor after Cleansing No -Primary Dressing Applied Aquacel AG 4x4, Mepilex Border -Aquacel AG 4x4 1 -Mepilex Border 1 Treatment Response Procedure Tolerated Well Pain Scale: 0-10 Numeric Is Patient Pain Free? Yes - Visit Discharge Discharge Condition Stable Ambulatory Status Ambulatory Transportation Private Auto Accompanied by Assessment/Plan Assessment/Plan (1) Abscess of left foot excluding toes: CODE(S): L02.612 - Cutaneous abscess of left foot (2) Delayed wound healing: CODE(S): T14.8XXD - Other injury of unspecified body region, subsequent encounter (3) Chronic ulcer of left foot with fat layer exposed: CODE(S): L97.522 - Non-pressure chronic ulcer of other part of left foot with fat layer exposed (4) HTN (hypertension): CODE(S): I10 - Essential (primary) hypertension QUALIFIERS: Hypertension type: primary hypertension Qualified Code(s): I10 - Essential (primary) hypertension (5) Pressure ulcer of left foot, stage 3: CODE(S): L89.893 - Pressure ulcer of other site, stage 3 PLAN: Plan Debridement performed today in clinic as annotated above. At home wound-care instructions: Wash ulcer daily with antibacterial soap and water. Apply Aquacel Ag to ulcer and cover with gauze or foam dressing daily. Keep dressing clean and dry. He modified the insole of his work boot to offload pressure to the area of his left foot. Wound culture performed today. Off-loading: The patient was instructed to avoid pressure and friction on the affected areas. Reposition every 2 hours at minimum. Avoid prolonged standing and/or dangling of legs. When seated, feet should be elevated at chest level. Frequent ambulation is encouraged. Diet: Patient encouraged to increase protein intake while taking caution to avoid high carbohydrate and/or sugar intake. Labs/cultures/imaging: Wound culture performed today. Follow-up: Return in 1 week for wound care follow up. Return sooner or report to the emergency room should symptoms worsen, or new symptoms arise. Note: [employer] speech recognition biomass plant manager software was used to create portions of this document. Sound-alike and misspelled words, as well as other biomass plant manager errors may be contained in the documentation.
[2023-04-03 10:32] VITALS: BP 130/64; PULSE 77; RESP 18; TEMP 35.7
--- NOTE | 2023-04-03 12:18 | PN.PCM_ITS ---
History of Present Illness Date of Service: 04/03/23 Chief Complaint: nonhealing wound left plantar foot History of Wound: Jose J is a 67 y/o gentleman that presents to the wound healing center for evaluation and treatment of a wound to his left plantar foot. He is a patient of Dr. Giordano. He has had a wound to this same area in February 2019 and was seen at [facility] [place] and treated there for 9 weeks with Aquacel and was placed in a wedge shoe to offload his foot. He was treated for this same wound for almost a year at this wound center and was healed in May 2020 and returned in July and was treated until September. He has undergone vascular testing at [facility] in 2018 but not since that time. 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 He and his did not want to do surgery. He has managed to do well over the last 2 years until the end of October when the area became painful again and began draining. He saw Dr. Giordano and was treated with doxycycline which helped and they had been applying Aquacel that they had from previous treatment but it has not improved. He was treated with a second course of doxycycline and then referred here for treatment. He is still working and walking on his foot in a steel toe boot 4 days a week for 10 hours. He had an offloading pad in his work boot previously but no longer has this in place. He denies claudication with walking. He has moderate to heavy drainage from the ulcer. He has not had any wound cultures taken. 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 He denies fever, chill, nausea, vomiting, redness or odor. Subjective Subjective Jose J returns today for follow up of an ulcer on the bottom of his left foot. He continues treatment with doxycycline. Wound culture was positive for stapha nd group B strep. He continues to wear his modified work boot to alleviate pressure to the site of the ulcer of his left foot. He has been tolerating the Aquacel Ag to the ulcer. The area is slightly worse. He has had decreased drainage. He denies fever, chills or odor. Objective Data Objective Data Vital Signs: Vital Signs Temp Pulse Resp BP O2 Del Method 96.3 F L 77 18 130/64 H Room Air 04/03/23 10:32 04/03/23 10:32 04/03/23 10:32 04/03/23 10:32 03/27/23 10:46 Oxygen Delivery Method Room Air Lab / Micro Data Micro: Microbiology 03/27/23 11:15 Wound - Left Foot Gram Stain - Final 03/27/23 11:15 Wound - Left Foot Wound Culture - Final Streptococcus agalactiae (B) Staphylococcus simulans 03/27/23 11:15 Wound - Left Foot Anaerobic Culture - Final No anaerobic bacteria isolated. Physical Exam Const alert, oriented x3 and no apparent distress General Appearance: cooperative and comfortable HEENT normocephalic and head/scalp atraumatic Resp normal respiratory effort Effort and Inspection: able to speak in complete sentences Cardio regular rate and regular rhythm Skin Wounds: wounds noted Wound Narrative: as in clinical panel Psych mental status grossly normal, thought process normal, cooperative and affect normal Debridement Note Debridement Note Wound debrided: left lateral plantar foot ulcer Laterality: Left Wound Grade/Stage: Stage 3 Type of Debridement: Excisional debridement Anesthesia Used: 4% Lidocaine Solution and 5% Lidocaine Gel Depth: Down to and including healthy tissue and in the subcutaneous layer Percentage of wound debrided: 100 Instrument Used: #15 blade and Forceps Tissue Removed: Yellow slough, devitalized tissue Severity: Fat Layer Exposed Amount of bleeding with debridement: Mild Bleeding Controlled with: Compression and gauze Patient tolerated procedure: Patient tolerated procedure well Post-Debridement Measurements and Additional Note: Post-Debridement Measurements/Treatment - Nurse 1 - General Ulcer Assessment Start: 03/27/23 10:46 Freq: Status: Active Protocol: KANIKA Activity Type Activity Date Activity User E-sign Co-sign Detail Recorded Client Recorded Date Recorded By Document 03/27/23 10:46 [facility] Desktop 03/27/23 10:53 BM Document 04/03/23 10:32 RB Desktop 04/03/23 10:33 RB 03/27/23 04/03/23 10:46 10:32 - Today's Visit Information Type of service Follow-up Visit Follow-up Visit (Physician/TOOL GRINDING TECHNICIAN (Physician/TOOL GRINDING TECHNICIAN ) ) Arrival Mode Ambulatory Ambulatory Transfer Assistance None None Accompanied by Patient Identification Verified (Name & Yes Yes ) Patient Requires Transmission-Based No No Precautions Vital Signs Temperature (97.8 F-99.1 F) 97.7 F L 96.3 F L Temperature Source Temporal Temporal Pulse Rate (60-100) 77 77 Pulse Location Monitor Monitor Respiratory Rate (12-18) 18 18 Respiratory rate source Observation Observation Oxygen Delivery Method Room Air Blood Pressure (90/60-120/80) 113/57 L 130/64 H Blood Pressure Mean (mm Hg) 75 86 Source Monitor Monitor Position Sitting Semi-Fowlers Blood Pressure Location Right Arm Left Arm History Since Last Visit- (Skip if this is Patient's initial visit) Have you changed medications since your No No last visit? Any new allergies or adverse reactions No No Had a fall/change in ADL's that may No No increase risk of falls Signs or symptoms of abuse and/or No No neglect since last visit Have you been in the hospital since your No No last visit? Has dressing in place as prescribed Yes Yes Has compression in place as prescribed N/A Yes Has offloadiing in place as prescribed N/A No Experienced any changes in pain level or No No management Left Footwear Regular Shoe Right Footwear Regular Shoe Pain Scale: 0-10 Numeric Is Patient Pain Free? Yes Yes WC - Nurse 1 - General Ulcer Measurement Start: 03/27/23 10:46 Freq: Status: Active Protocol: Activity Type Activity Date Activity User E-sign Co-sign Detail Recorded Client Recorded Date Recorded By Document 03/27/23 10:46 [facility] Desktop 03/27/23 10:53 [facility] Document 04/03/23 10:32 Desktop 04/03/23 10:33 RB 03/27/23 04/03/23 10:46 10:32 Wound Center Nurse 1 #3 L Lateral Plantar Foot -Combined with other wound No No -Current Size (cm) - Length 1 0.7 -Current Size (cm) - Width 0.9 0.9 -Current Size (cm) - Depth 0.3 0.1 -Total Square Cm 0.9 0.63 -Photo Taken No Yes -Tunneling No No -Undermining/Tunneling Yes No -Undermining/Tunneling Starts (O'clock 10 ) -Undermining/Tunneling Ends (O'clock) 1 -Maximum Distance (cm) 0.3 -Circular Undermining No No -Exudate Amt Medium Medium -Exudate Type Serosanguineous Serosanguineous -Wound Margin Distinct, Distinct, Outline Outline Attached Attached -Granulation Amt Large (67-100%) Medium (34-66%) -Granulation Quality [place] -Slough/Fibrin Yes Yes -Necrosis Amt Small (1-33%) Medium (34-66%) -Necrotic Tissue Type Adherent Slough Adherent Slough -Structure Exposed N/A -Texture (Flory-wound Skin Appearance) Assessed,Callus Assessed,Callus ,Scarring -Moisture (Flory-wound Skin Appearance) Assessed Assessed -Color (Flory-wound Skin Appearance) Assessed Assessed -Temperature (Flory-wound Skin No Abnormality No Abnormality Appearance) (Pt Warm) (Pt Warm) -Tenderness on Palpation (Flory-wound No No Skin Appearance) -Ulcer Cleansing Rinsed/ Wound Cleanser Irrigated with Saline -Foul Odor after Cleansing No No -Anesthetic Used 5% Lidocaine 5% Lidocaine Gel Gel WC - Nurse 2 - General Ulcer CM Notes Start: 03/27/23 10:46 Freq: Status: Active Protocol: Activity Type Activity Date Activity User E-sign Co-sign Detail Recorded Client Recorded Date Recorded By Document 03/27/23 11:03 [facility] Desktop 03/27/23 11:21 GM Document 04/03/23 10:47 Desktop 04/03/23 11:07 03/27/23 04/03/23 11:03 10:47 Wound Center Nurse 2 #3 L Lateral Plantar Foot -Time 11:03 10:47 -Correct Patient Yes Yes -Correct Side, Site, Position Yes Yes -Correct Procedure Yes Yes -Procedure Performed Yes Yes -Type of Procedure Debridement Debridement -Clinical Debridement Subcutaneous Subcutaneous -Tissue Removed Subcutaneous Subcutaneous -Post Debridement (cm) - Length 1.2 0.8 -Post Debridement (cm) - Width 1.8 0.8 -Post Debridement (cm) - Depth 0.2 0.1 -Total Square (Post) (cm) 2.16 0.64 -Area of Debridement (cm) - Length 1.2 0.8 -Area of Debridement (cm) - Width 1.8 -Total Square (Area) (cm) 2.16 -Tunneling No No -Undermining/Tunneling No No -Circular Undermining No No -Wound/Ulcer Outcome Not Healed Not Healed -Ulcer Cleansing Rinsed/ Rinsed/ Irrigated with Irrigated with Saline Saline -Foul Odor after Cleansing No No -Bioengineered Tissue No No -Bleeding Controlled with Pressure Pressure -Treatment Response Procedure Procedure Tolerated Well Tolerated Well -Offloading No -Debridement - Subq, 1st 20sq cm Yes Yes Pain Scale: 0-10 Numeric Is Patient Pain Free? Yes Yes - Nurse 3 - General Ulcer D/C NN Start: 03/27/23 10:46 Freq: Status: Active Protocol: Activity Type Activity Date Activity User E-sign Co-sign Detail Recorded Client Recorded Date Recorded By Document 03/27/23 11:28 [facility] Desktop 03/27/23 11:30 BM Document 04/03/23 11:13 RB Desktop 04/03/23 11:14 RB 03/27/23 04/03/23 11:28 11:13 Wound Care Center Nurse 3 #3 L Lateral Plantar Foot -Ulcer Cleansing Rinsed/ Rinsed/ Irrigated with Irrigated with Saline Saline -Foul Odor after Cleansing No -Primary Dressing Applied Aquacel AG 4x4, Aquacel AG 4x4, Mepilex Border Mepilex Border -Aquacel AG 4x4 1 1 -Mepilex Border 1 1 Treatment Response Procedure Procedure Tolerated Well Tolerated Well Pain Scale: 0-10 Numeric Is Patient Pain Free? Yes Yes WC - Visit Discharge Discharge Condition Stable Stable Ambulatory Status Ambulatory Ambulatory Transportation Private Auto Private Auto Accompanied by Medication Reconcilliation completed & No provided to patient/care provider Clinical Summary of Care Provided Yes Assessment/Plan Assessment/Plan (1) Abscess of left foot excluding toes: CODE(S): L02.612 - Cutaneous abscess of left foot (2) Delayed wound healing: CODE(S): T14.8XXD - Other injury of unspecified body region, subsequent encounter (3) Chronic ulcer of left foot with fat layer exposed: CODE(S): L97.522 - Non-pressure chronic ulcer of other part of left foot with fat layer exposed (4) HTN (hypertension): CODE(S): I10 - Essential (primary) hypertension QUALIFIERS: Hypertension type: primary hypertension Qualified Code(s): I10 - Essential (primary) hypertension (5) Pressure ulcer of left foot, stage 3: CODE(S): L89.893 - Pressure ulcer of other site, stage 3 PLAN: Plan Debridement performed today in clinic as annotated above. At home wound-care instructions: Wash ulcer daily with antibacterial soap and water. Apply Aquacel Ag to ulcer and cover with gauze or foam dressing daily. Keep dressing clean and dry. He modified the insole of his work boot to offload pressure to the area of his left foot. Wound culture performed today. Off-loading: The patient was instructed to avoid pressure and friction on the affected areas. Reposition every 2 hours at minimum. Avoid prolonged standing and/or dangling of legs. When seated, feet should be elevated at chest level. Frequent ambulation is encouraged. Diet: Patient encouraged to increase protein intake while taking caution to avoid high carbohydrate and/or sugar intake. Labs/cultures/imaging: Wound culture positive and is currently on Doxycycline. Follow-up: Return in 1 week for wound care follow up. Return sooner or report to the emergency room should symptoms worsen, or new symptoms arise. Note: [employer] speech recognition resource room special education teacher software was used to create portions of this document. Sound-alike and misspelled words, as well as other resource room special education teacher errors may be contained in the documentation.
[2023-04-10 10:40] VITALS: BP 119/62; PULSE 75; RESP 18; TEMP 36.4
--- NOTE | 2023-04-10 14:09 | PCM.WC.PN ---
History of Present Illness Date of Service: 04/10/23 Chief Complaint: nonhealing wound left plantar foot History of Wound: Jose J is a 67 y/o gentleman that presents to the wound healing center for evaluation and treatment of a wound to his left plantar foot. He is a patient of Dr. Giordano. He has had a wound to this same area in February 2019 and was seen at [facility] and treated there for 9 weeks with Aquacel and was placed in a wedge shoe to offload his foot. He was treated for this same wound for almost a year at this wound center and was healed in May 2020 and returned in July and was treated until September. He has undergone vascular testing at [facility] in 2018 but not since that time. 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 He and his did not want to do surgery. He has managed to do well over the last 2 years until the end of October when the area became painful again and began draining. He saw Dr. Giordano and was treated with doxycycline which helped and they had been applying Aquacel that they had from previous treatment but it has not improved. He was treated with a second course of doxycycline and then referred here for treatment. He is still working and walking on his foot in a steel toe boot 4 days a week for 10 hours. He had an offloading pad in his work boot previously but no longer has this in place. He denies claudication with walking. He has moderate to heavy drainage from the ulcer. He has not had any wound cultures taken. 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 He denies fever, chill, nausea, vomiting, redness or odor. Subjective Subjective Jose J returns today for follow up of an ulcer on the bottom of his left foot. He continues treatment with doxycycline. Wound culture was positive for stapha nd group B strep. He continues to wear his modified work boot to alleviate pressure to the site of the ulcer of his left foot. He has been tolerating the Aquacel Ag to the ulcer. The area is improved. He has had moderate drainage. He denies fever, chills or odor. Objective Data Objective Data Vital Signs: Vital Signs Temp Pulse Resp BP O2 Del Method 97.5 F L 75 18 119/62 Room Air 04/10/23 10:40 04/10/23 10:40 04/10/23 10:40 04/10/23 10:40 03/27/23 10:46 Oxygen Delivery Method Room Air Lab / Micro Data Micro: Microbiology 03/27/23 11:15 Wound - Left Foot Gram Stain - Final 03/27/23 11:15 Wound - Left Foot Wound Culture - Final Streptococcus agalactiae (B) Staphylococcus simulans 03/27/23 11:15 Wound - Left Foot Anaerobic Culture - Final No anaerobic bacteria isolated. Physical Exam Const alert, oriented x3 and no apparent distress General Appearance: cooperative and comfortable HEENT normocephalic and head/scalp atraumatic Resp normal respiratory effort Effort and Inspection: able to speak in complete sentences Cardio regular rate and regular rhythm Skin Wounds: wounds noted Wound Narrative: as in clinical panel Psych mental status grossly normal, thought process normal, cooperative and affect normal Debridement Note Debridement Note Wound debrided: left lateral plantar foot ulcer Laterality: Left Wound Grade/Stage: Stage 3 Type of Debridement: Excisional debridement Anesthesia Used: 4% Lidocaine Solution and 5% Lidocaine Gel Depth: Down to and including healthy tissue and in the subcutaneous layer Percentage of wound debrided: 100 Instrument Used: #15 blade and Forceps Tissue Removed: Yellow slough, devitalized tissue Severity: Fat Layer Exposed Amount of bleeding with debridement: Mild Bleeding Controlled with: Compression and gauze Patient tolerated procedure: Patient tolerated procedure well Post-Debridement Measurements and Additional Note: Post-Debridement Measurements/Treatment - Nurse 1 - General Ulcer Assessment Start: 03/27/23 10:46 Freq: Status: Active Protocol: KANIKA Activity Type Activity Date Activity User E-sign Co-sign Detail Recorded Client Recorded Date Recorded By Document 03/27/23 10:46 BMF Desktop 03/27/23 10:53 BMF Document 04/03/23 10:32 RB Desktop 04/03/23 10:33 RB Document 04/10/23 10:40 DL Desktop 04/10/23 10:44 DL 03/27/23 04/03/23 04/10/23 10:46 10:32 10:40 - Today's Visit Information Type of service Follow-up Visit Follow-up Visit Follow-up Visit (Physician/PLANT PULLER (Physician/PLANT PULLER (Physician/PLANT PULLER ) ) ) Arrival Mode Ambulatory Ambulatory Ambulatory Transfer Assistance None None None Accompanied by Patient Identification Verified (Name & Yes Yes Yes ) Patient Requires Transmission-Based No No No Precautions Vital Signs Temperature (97.8 F-99.1 F) 97.7 F L 96.3 F L 97.5 F L Temperature Source Temporal Temporal Temporal Pulse Rate (60-100) 77 77 75 Pulse Location Monitor Monitor Monitor Respiratory Rate (12-18) 18 18 18 Respiratory rate source Observation Observation Observation Oxygen Delivery Method Room Air Blood Pressure (90/60-120/80) 113/57 L 130/64 H 119/62 Blood Pressure Mean (mm Hg) 75 86 81 Source Monitor Monitor Monitor Position Sitting Semi-Fowlers Blood Pressure Location Right Arm Left Arm History Since Last Visit- (Skip if this is Patient's initial visit) Have you changed medications since your No No No last visit? Any new allergies or adverse reactions No No No Had a fall/change in ADL's that may No No No increase risk of falls Signs or symptoms of abuse and/or No No No neglect since last visit Have you been in the hospital since your No No No last visit? Has dressing in place as prescribed Yes Yes Yes Has compression in place as prescribed N/A Yes N/A Has offloadiing in place as prescribed N/A No Yes Experienced any changes in pain level or No No No management Left Footwear Regular Shoe Regular Shoe Right Footwear Regular Shoe Regular Shoe Pain Scale: 0-10 Numeric Is Patient Pain Free? Yes Yes Yes WC - Nurse 1 - General Ulcer Measurement Start: 03/27/23 10:46 Freq: Status: Active Protocol: Activity Type Activity Date Activity User E-sign Co-sign Detail Recorded Client Recorded Date Recorded By Document 03/27/23 10:46 BMF Desktop 03/27/23 10:53 BMF Document 04/03/23 10:32 RB Desktop 04/03/23 10:33 RB Document 04/10/23 10:40 DL Desktop 04/10/23 10:44 DL 03/27/23 04/03/23 04/10/23 10:46 10:32 10:40 Wound Center Nurse 1 #3 L Lateral Plantar Foot -Combined with other wound No No -Current Size (cm) - Length 1 0.7 0.6 -Current Size (cm) - Width 0.9 0.9 0.8 -Current Size (cm) - Depth 0.3 0.1 0.2 -Total Square Cm 0.9 0.63 0.48 -Photo Taken No Yes -Tunneling No No -Undermining/Tunneling Yes No -Undermining/Tunneling Starts (O'clock 10 ) -Undermining/Tunneling Ends (O'clock) 1 -Maximum Distance (cm) 0.3 -Circular Undermining No No -Exudate Amt Medium Medium Medium -Exudate Type Serosanguineous Serosanguineous Serosanguineous -Wound Margin Distinct, Distinct, Distinct, Outline Outline Outline Attached Attached Attached -Granulation Amt Large (67-100%) Medium (34-66%) Large (67-100%) -Granulation Quality Buttonwillow Buttonwillow Buttonwillow -Slough/Fibrin Yes Yes -Necrosis Amt Small (1-33%) Medium (34-66%) Small (1-33%) -Necrotic Tissue Type Adherent Slough Adherent Slough Adherent Slough -Structure Exposed N/A N/A -Texture (Flory-wound Skin Appearance) Assessed,Callus Assessed,Callus Callus,Scarring ,Scarring -Moisture (Flory-wound Skin Appearance) Assessed Assessed No Abnormality -Color (Flory-wound Skin Appearance) Assessed Assessed No Abnormality -Temperature (Flory-wound Skin No Abnormality No Abnormality No Abnormality Appearance) (Pt Warm) (Pt Warm) (Pt Warm) -Tenderness on Palpation (Flory-wound No No No Skin Appearance) -Ulcer Cleansing Rinsed/ Wound Cleanser Soap and Water Irrigated with Saline -Foul Odor after Cleansing No No No -Anesthetic Used 5% Lidocaine 5% Lidocaine 5% Lidocaine Gel Gel Gel WC - Nurse 2 - General Ulcer CM Notes Start: 03/27/23 10:46 Freq: Status: Active Protocol: Activity Type Activity Date Activity User E-sign Co-sign Detail Recorded Client Recorded Date Recorded By Document 03/27/23 11:03 Desktop 03/27/23 11:21 Document 04/03/23 10:47 Desktop 04/03/23 11:07 GM Document 04/10/23 11:26 Desktop 04/10/23 11:40 03/27/23 04/03/23 04/10/23 11:03 10:47 11:26 Wound Center Nurse 2 #3 L Lateral Plantar Foot -Time 11:03 10:47 11:27 -Correct Patient Yes Yes Yes -Correct Side, Site, Position Yes Yes Yes -Correct Procedure Yes Yes Yes -Procedure Performed Yes Yes Yes -Type of Procedure Debridement Debridement Debridement -Clinical Debridement Subcutaneous Subcutaneous Subcutaneous -Tissue Removed Subcutaneous Subcutaneous Subcutaneous -Post Debridement (cm) - Length 1.2 0.8 0.8 -Post Debridement (cm) - Width 1.8 0.8 1.4 -Post Debridement (cm) - Depth 0.2 0.1 0.2 -Total Square (Post) (cm) 2.16 0.64 1.12 -Area of Debridement (cm) - Length 1.2 0.8 0.8 -Area of Debridement (cm) - Width 1.8 1.4 -Total Square (Area) (cm) 2.16 1.12 -Tunneling No No No -Undermining/Tunneling No No No -Circular Undermining No No No -Wound/Ulcer Outcome Not Healed Not Healed Not Healed -Ulcer Cleansing Rinsed/ Rinsed/ Rinsed/ Irrigated with Irrigated with Irrigated with Saline Saline Saline -Foul Odor after Cleansing No No No -Bioengineered Tissue No No No -Bleeding Controlled with Pressure Pressure Pressure -Treatment Response Procedure Procedure Procedure Tolerated Well Tolerated Well Tolerated Well -Offloading No -Debridement - Subq, 1st 20sq cm Yes Yes Yes Pain Scale: 0-10 Numeric Is Patient Pain Free? Yes Yes Yes WC - Nurse 3 - General Ulcer D/C NN Start: 03/27/23 10:46 Freq: Status: Active Protocol: Activity Type Activity Date Activity User E-sign Co-sign Detail Recorded Client Recorded Date Recorded By Document 03/27/23 11:28 [facility] Desktop 03/27/23 11:30 [facility] Document 04/03/23 11:13 RB Desktop 04/03/23 11:14 RB Document 04/10/23 11:56 RB Desktop 04/10/23 11:56 RB 03/27/23 04/03/23 04/10/23 11:28 11:13 11:56 Wound Care Center Nurse 3 #3 L Lateral Plantar Foot -Ulcer Cleansing Rinsed/ Rinsed/ Rinsed/ Irrigated with Irrigated with Irrigated with Saline Saline Saline -Foul Odor after Cleansing No -Primary Dressing Applied Aquacel AG 4x4, Aquacel AG 4x4, Aquacel AG 4x4 Mepilex Border Mepilex Border -Other Dressing abd -Primary Dressing Covered/Secured with Dry Gauze,Dry Gauze & Roll Gauze,Secured with Tape -Aquacel AG 4x4 1 1 1 -Mepilex Border 1 1 Treatment Response Procedure Procedure Procedure Tolerated Well Tolerated Well Tolerated Well Pain Scale: 0-10 Numeric Is Patient Pain Free? Yes Yes Yes WC - Visit Discharge Discharge Condition Stable Stable Stable Ambulatory Status Ambulatory Ambulatory Ambulatory Transportation Private Auto Private Auto Private Auto Accompanied by Medication Reconcilliation completed & No No provided to patient/care provider Clinical Summary of Care Provided Yes Yes Assessment/Plan Assessment/Plan (1) Abscess of left foot excluding toes: CODE(S): L02.612 - Cutaneous abscess of left foot (2) Delayed wound healing: CODE(S): T14.8XXD - Other injury of unspecified body region, subsequent encounter (3) Chronic ulcer of left foot with fat layer exposed: CODE(S): L97.522 - Non-pressure chronic ulcer of other part of left foot with fat layer exposed (4) HTN (hypertension): CODE(S): I10 - Essential (primary) hypertension QUALIFIERS: Hypertension type: primary hypertension Qualified Code(s): I10 - Essential (primary) hypertension (5) Pressure ulcer of left foot, stage 3: CODE(S): L89.893 - Pressure ulcer of other site, stage 3 PLAN: Plan Debridement performed today in clinic as annotated above. At home wound-care instructions: Wash ulcer daily with antibacterial soap and water. Apply Aquacel Ag to ulcer and cover with gauze and foam dressing daily or Aquacel Ag and ABD and roll gauze to secure daily. Keep dressing clean and dry. He modified the insole of his work boot to offload pressure to the area of his left foot. Off-loading: The patient was instructed to avoid pressure and friction on the affected areas. Reposition every 2 hours at minimum. Avoid prolonged standing and/or dangling of legs. When seated, feet should be elevated at chest level. Frequent ambulation is encouraged. Diet: Patient encouraged to increase protein intake while taking caution to avoid high carbohydrate and/or sugar intake. Labs/cultures/imaging: Wound culture positive and is currently on Doxycycline. Follow-up: Return in 2 weeks for wound care follow up. Return sooner or report to the emergency room should symptoms worsen, or new symptoms arise. Note: [employer] speech recognition seat installer software was used to create portions of this document. Sound-alike and misspelled words, as well as other seat installer errors may be contained in the documentation.
== END 2023-04-23 23:59 | disposition home or self-care (01) ==
LOC: WC 10:30
PROVIDERS: PCP Family Medicine; Referring Provider Family Medicine; Visit Provider Family Medicine
DX: L89.893 Pressure ulcer of other site, stage 3 (principal); L02.612 Cutaneous abscess of left foot; I10 Essential (primary) hypertension; Z79.899 Other long term (current) drug therapy
CPT/HCPCS: 11042; 87070; 87075; 87077; 87186; 87205

== ENCOUNTER 2023-05-22 10:15 | Outpatient (RCR) | payer BC, SELFPAY ==
[2023-04-24 00:44] VITALS: BP 119/62; PULSE 75; RESP 18; TEMP 36.4
[2023-04-24 11:02] VITALS: BP 153/75; PULSE 89; RESP 18; TEMP 36.4
--- NOTE | 2023-04-24 13:52 | PN.PCM_ITS ---
History of Present Illness Date of Service: 04/24/23 Chief Complaint: nonhealing wound left plantar foot History of Wound: Jose J is a 67 y/o gentleman that presents to the wound healing center for evaluation and treatment of a wound to his left plantar foot. He is a patient of Dr. Giordano. He has had a wound to this same area in February 2019 and was seen at [facility] and treated there for 9 weeks with Aquacel and was placed in a wedge shoe to offload his foot. He was treated for this same wound for almost a year at this wound center and was healed in May 2020 and returned in July and was treated until September. He has undergone vascular testing at [facility] in 2018 but not since that time. 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 He and his did not want to do surgery. He has managed to do well over the last 2 years until the end of October when the area became painful again and began draining. He saw Dr. Giordano and was treated with doxycycline which helped and they had been applying Aquacel that they had from previous treatment but it has not improved. He was treated with a second course of doxycycline and then referred here for treatment. He is still working and walking on his foot in a steel toe boot 4 days a week for 10 hours. He had an offloading pad in his work boot previously but no longer has this in place. He denies claudication with walking. He has moderate to heavy drainage from the ulcer. He has not had any wound cultures taken. 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 He denies fever, chill, nausea, vomiting, redness or odor. Subjective Subjective Jose J returns today for follow up of an ulcer on the bottom of his left foot. He continues treatment with doxycycline. Wound culture was positive for staph and group B strep. He continues to wear his modified work boot to alleviate pressure to the site of the ulcer of his left foot. He has been tolerating the Aquacel Ag to the ulcer. The area is improved but callus continues to form. He has had moderate drainage. He denies fever, chills or odor. Objective Data Objective Data Vital Signs: Vital Signs Temp Pulse Resp BP 97.6 F L 89 18 153/75 H 04/24/23 11:02 04/24/23 11:02 04/24/23 11:02 04/24/23 11:02 Physical Exam Const alert, oriented x3 and no apparent distress General Appearance: cooperative and comfortable HEENT normocephalic and head/scalp atraumatic Resp normal respiratory effort Effort and Inspection: able to speak in complete sentences Cardio regular rate and regular rhythm Skin Wounds: wounds noted Wound Narrative: as in clinical panel Psych mental status grossly normal, thought process normal, cooperative and affect normal Debridement Note Debridement Note Wound debrided: left lateral plantar foot ulcer Laterality: Left Wound Grade/Stage: Stage 3 Type of Debridement: Excisional debridement Anesthesia Used: 4% Lidocaine Solution and 5% Lidocaine Gel Depth: Down to and including healthy tissue and in the subcutaneous layer Percentage of wound debrided: 100 Instrument Used: #15 blade and Forceps Tissue Removed: Yellow slough, devitalized tissue Severity: Fat Layer Exposed Amount of bleeding with debridement: Mild Bleeding Controlled with: Compression and gauze Patient tolerated procedure: Patient tolerated procedure well Post-Debridement Measurements and Additional Note: Post-Debridement Measurements/Treatment - Nurse 1 - General Ulcer Assessment Start: 04/24/23 11:02 Freq: Status: Active Protocol: AKNIKA Activity Type Activity Date Activity User E-sign Co-sign Detail Recorded Client Recorded Date Recorded By Document 04/24/23 11:02 PL Tablet 04/24/23 11:04 PL 04/24/23 11:02 - Today's Visit Information Type of service Follow-up Visit (Physician/DESIGN LEADER ) Arrival Mode Ambulatory Transfer Assistance None Patient Identification Verified (Name & Yes ) Patient Requires Transmission-Based No Precautions Vital Signs Temperature (97.8 F-99.1 F) 97.6 F L Temperature Source Temporal Pulse Rate (60-100) 89 Respiratory Rate (12-18) 18 Blood Pressure (90/60-120/80) 153/75 H Blood Pressure Mean (mm Hg) 101 History Since Last Visit- (Skip if this is Patient's initial visit) Have you changed medications since your No last visit? Any new allergies or adverse reactions No Had a fall/change in ADL's that may No increase risk of falls Signs or symptoms of abuse and/or No neglect since last visit Have you been in the hospital since your No last visit? Has dressing in place as prescribed Yes Has compression in place as prescribed N/A Has offloadiing in place as prescribed N/A Experienced any changes in pain level or No management Pain Scale: 0-10 Numeric Is Patient Pain Free? Yes - Nurse 2 - General Ulcer CM Notes Start: 04/24/23 11:02 Freq: Status: Active Protocol: Activity Type Activity Date Activity User E-sign Co-sign Detail Recorded Client Recorded Date Recorded By Document 04/24/23 11:12 [email or web address] 04/24/23 11:32 04/24/23 11:12 Wound Center Nurse 2 #3 L Lateral Plantar Foot -Time 11:13 -Correct Patient Yes -Correct Side, Site, Position Yes -Correct Procedure Yes -Procedure Performed Yes -Type of Procedure Debridement -Clinical Debridement Subcutaneous -Tissue Removed Subcutaneous -Post Debridement (cm) - Length 0.6 -Post Debridement (cm) - Width 1.7 -Post Debridement (cm) - Depth 0.1 -Total Square (Post) (cm) 1.02 -Area of Debridement (cm) - Length 0.6 -Area of Debridement (cm) - Width 1.7 -Total Square (Area) (cm) 1.02 -Tunneling No -Undermining/Tunneling No -Circular Undermining No -Wound/Ulcer Outcome Not Healed -Ulcer Cleansing Rinsed/ Irrigated with Saline -Foul Odor after Cleansing No -Bioengineered Tissue No -Bleeding Controlled with Pressure -Treatment Response Procedure Tolerated Well -Debridement - Subq, 1st 20sq cm Yes Pain Scale: 0-10 Numeric Is Patient Pain Free? Yes - Nurse 3 - General Ulcer D/C NN Start: 04/24/23 11:02 Freq: Status: Active Protocol: Activity Type Activity Date Activity User E-sign Co-sign Detail Recorded Client Recorded Date Recorded By Document 04/24/23 11:40 [facility] [employer] 04/24/23 11:41 [facility] 04/24/23 11:40 Wound Care Center Nurse 3 #3 L Lateral Plantar Foot -Ulcer Cleansing Rinsed/ Irrigated with Saline -Foul Odor after Cleansing No -Primary Dressing Applied Aquacel AG 4x4 -Primary Dressing Covered/Secured with Dry Gauze & Roll Gauze, Secured with Tape -Aquacel AG 4x4 1 Treatment Response Procedure Tolerated Well Pain Scale: 0-10 Numeric Is Patient Pain Free? Yes WC - Visit Discharge Discharge Condition Stable Ambulatory Status Ambulatory Transportation Private Auto Accompanied by Assessment/Plan Assessment/Plan (1) Abscess of left foot excluding toes: CODE(S): L02.612 - Cutaneous abscess of left foot (2) Delayed wound healing: CODE(S): T14.8XXD - Other injury of unspecified body region, subsequent encounter (3) Chronic ulcer of left foot with fat layer exposed: CODE(S): L97.522 - Non-pressure chronic ulcer of other part of left foot with fat layer exposed (4) HTN (hypertension): CODE(S): I10 - Essential (primary) hypertension QUALIFIERS: Hypertension type: primary hypertension Qualified Code(s): I10 - Essential (primary) hypertension (5) Pressure ulcer of left foot, stage 3: CODE(S): L89.893 - Pressure ulcer of other site, stage 3 PLAN: Plan Debridement performed today in clinic as annotated above. At home wound-care instructions: Wash ulcer daily with antibacterial soap and water. Apply Aquacel Ag to ulcer and cover with gauze and ABD and roll gauze to secure daily. Keep dressing clean and dry. He modified the insole of his work boot to offload pressure to the area of his left foot. Would consider CT of foot to evaluate for osteomyelitis if not improving. Off-loading: The patient was instructed to avoid pressure and friction on the affected areas. Reposition every 2 hours at minimum. Avoid prolonged standing and/or dangling of legs. When seated, feet should be elevated at chest level. Frequent ambulation is encouraged. Diet: Patient encouraged to increase protein intake while taking caution to avoid high carbohydrate and/or sugar intake. Labs/cultures/imaging: Wound culture positive and is currently on Doxycycline. Follow-up: Return in 1 week for wound care follow up. Return sooner or report to the emergency room should symptoms worsen, or new symptoms arise. Note: [employer] speech recognition can filling room sweeper software was used to create portions of this document. Sound-alike and misspelled words, as well as other can filling room sweeper errors may be contained in the documentation.
[2023-05-01 09:53] VITALS: BP 128/56; PULSE 80; RESP 18; TEMP 36.7
--- NOTE | 2023-05-01 12:47 | PN.PCM_ITS ---
History of Present Illness Date of Service: 05/01/23 Chief Complaint: nonhealing wound left plantar foot History of Wound: Jose J is a 67 y/o gentleman that presents to the wound healing center for evaluation and treatment of a wound to his left plantar foot. He is a patient of Dr. Giordano. He has had a wound to this same area in February [address] at [facility] and treated there for 9 weeks with Aquacel and was placed in a wedge shoe to offload his foot. He was treated for this same wound for almost a year at this wound center and was healed in May 2020 and returned in July and was treated until September. He has undergone vascular testing at [facility] in 2018 but not since that time. 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 He and his did not want to do surgery. He has managed to do well over the last 2 years until the end of October when the area became painful again and began draining. He saw Dr. Giordano and was treated with doxycycline which helped and they had been applying Aquacel that they had from previous treatment but it has not improved. He was treated with a second course of doxycycline and then referred here for treatment. He is still working and walking on his foot in a steel toe boot 4 days a week for 10 hours. He had an offloading pad in his work boot previously but no longer has this in place. He denies claudication with walking. He has moderate to heavy drainage from the ulcer. He has not had any wound cultures taken. 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 He denies fever, chill, nausea, vomiting, redness or odor. Subjective Subjective Jose J returns today for follow up of an ulcer on the bottom of his left foot. He continues treatment with doxycycline. Wound culture was positive for staph and group B strep. He continues to wear his modified work boot to alleviate pressure to the site of the ulcer of his left foot. He has been tolerating the Aquacel Ag to the ulcer. The area is improved but callus continues to form but it has been less. He has had moderate drainage. He denies fever, chills or odor. Objective Data Objective Data Vital Signs: Vital Signs Temp Pulse Resp BP O2 Del Method 98.0 F 80 18 128/56 H Room Air 05/01/23 09:53 05/01/23 09:53 05/01/23 09:53 05/01/23 09:53 05/01/23 09:53 Oxygen Delivery Method Room Air Physical Exam Const alert, oriented x3 and no apparent distress General Appearance: cooperative and comfortable HEENT normocephalic and head/scalp atraumatic Resp normal respiratory effort Effort and Inspection: able to speak in complete sentences Cardio regular rate and regular rhythm Skin Wounds: wounds noted Wound Narrative: as in clinical panel Psych mental status grossly normal, thought process normal, cooperative and affect normal Debridement Note Debridement Note Wound debrided: left lateral plantar foot ulcer Laterality: Left Wound Grade/Stage: Stage 3 Type of Debridement: Excisional debridement Anesthesia Used: 4% Lidocaine Solution and 5% Lidocaine Gel Depth: Down to and including healthy tissue and in the subcutaneous layer Percentage of wound debrided: 100 Instrument Used: #15 blade and Forceps Tissue Removed: Yellow slough, devitalized tissue Severity: Fat Layer Exposed Amount of bleeding with debridement: Mild Bleeding Controlled with: Compression and gauze Patient tolerated procedure: Patient tolerated procedure well Post-Debridement Measurements and Additional Note: Post-Debridement Measurements/Treatment - Nurse 1 - General Ulcer Assessment Start: 04/24/23 11:02 Freq: Status: Active Protocol: KANIKA Activity Type Activity Date Activity User E-sign Co-sign Detail Recorded Client Recorded Date Recorded By Document 04/24/23 11:02 PL Tablet 04/24/23 11:04 PL Document 05/01/23 09:53 VT Desktop 05/01/23 09:56 VT 04/24/23 05/01/23 11:02 09:53 - Today's Visit Information Type of service Follow-up Visit (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 ) Arrival Mode Ambulatory Transfer Assistance None Patient Identification Verified (Name & Yes ) Patient Requires Transmission-Based No Precautions Vital Signs Temperature (97.8 F-99.1 F) 97.6 F L 98.0 F Temperature Source Temporal Oral Pulse Rate (60-100) 89 80 Pulse Location Monitor Respiratory Rate (12-18) 18 18 Respiratory rate source Observation Oxygen Delivery Method Room Air Blood Pressure (90/60-120/80) 153/75 H 128/56 H Blood Pressure Mean (mm Hg) 101 80 Source Monitor Position Sitting Blood Pressure Location Left Arm History Since Last Visit- (Skip if this is Patient's initial visit) Have you changed medications since your No last visit? Any new allergies or adverse reactions No Had a fall/change in ADL's that may No increase risk of falls Signs or symptoms of abuse and/or No neglect since last visit Have you been in the hospital since your No last visit? Has dressing in place as prescribed Yes Has compression in place as prescribed N/A N/A Has offloadiing in place as prescribed N/A N/A Experienced any changes in pain level or No management Left Footwear Regular Shoe Right Footwear Regular Shoe Pain Scale: 0-10 Numeric Is Patient Pain Free? Yes No QUOC - Nurse 1 - General Ulcer Measurement Start: 04/24/23 11:02 Freq: Status: Active Protocol: Activity Type Activity Date Activity User E-sign Co-sign Detail Recorded Client Recorded Date Recorded By Document 05/01/23 09:53 VT [employer] 05/01/23 09:56 VT 05/01/23 09:53 Wound Center Nurse 1 #3 L Lateral Plantar Foot -Current Size (cm) - Length 0.5 -Current Size (cm) - Width 1.5 -Current Size (cm) - Depth 0.1 -Total Square Cm 0.75 -Tunneling No -Undermining/Tunneling No -Circular Undermining No -Exudate Amt Small -Exudate Type Serosanguineous -Wound Margin Flat & Intact -Granulation Amt Large (67-100%) -Granulation Quality Pale,[place] -Slough/Fibrin No -Texture (Flory-wound Skin Appearance) Assessed, Excoriation -Moisture (Flory-wound Skin Appearance) Assessed -Color (Flory-wound Skin Appearance) Assessed -Temperature (Flory-wound Skin No Abnormality Appearance) (Pt Warm) -Tenderness on Palpation (Flory-wound No Skin Appearance) -Ulcer Cleansing Soap and Water -Foul Odor after Cleansing No -Anesthetic Used 4% Lidocaine Solution Lower Limb Edema Present NA QUOC - Nurse 2 - General Ulcer CM Notes Start: 04/24/23 11:02 Freq: Status: Active Protocol: Activity Type Activity Date Activity User E-sign Co-sign Detail Recorded Client Recorded Date Recorded By Document 04/24/23 11:12 Desktop 04/24/23 11:32 Document 05/01/23 10:10 Desktop 05/01/23 10:17 Document 05/01/23 10:30 Desktop 05/01/23 10:31 04/24/23 05/01/23 05/01/23 11:12 10:10 10:30 Wound Center Nurse 2 #3 L Lateral Plantar Foot -Time 11:13 10:12 10:30 -Correct Patient Yes Yes Yes -Correct Side, Site, Position Yes Yes Yes -Correct Procedure Yes Yes Yes -Procedure Performed Yes Yes Yes -Type of Procedure Debridement Debridement Debridement -Clinical Debridement Subcutaneous Subcutaneous Subcutaneous -Tissue Removed Subcutaneous Subcutaneous Subcutaneous -Post Debridement (cm) - Length 0.6 0.5 -Post Debridement (cm) - Width 1.7 2.0 -Post Debridement (cm) - Depth 0.1 0.1 -Total Square (Post) (cm) 1.02 1.00 -Area of Debridement (cm) - Length 0.6 0.5 -Area of Debridement (cm) - Width 1.7 2.0 -Total Square (Area) (cm) 1.02 1.00 -Tunneling No No No -Undermining/Tunneling No No No -Circular Undermining No No No -Wound/Ulcer Outcome Not Healed Not Healed Not Healed -Ulcer Cleansing Rinsed/ Rinsed/ Rinsed/ Irrigated with Irrigated with Irrigated with Saline Saline Saline -Foul Odor after Cleansing No No No -Bioengineered Tissue No No No -Bleeding Controlled with Pressure Pressure Pressure -Treatment Response Procedure Procedure Procedure Tolerated Well Tolerated Well Tolerated Well -Debridement - Subq, 1st 20sq cm Yes Yes Yes Pain Scale: 0-10 Numeric Is Patient Pain Free? Yes Yes Yes - Nurse 3 - General Ulcer D/C NN Start: 04/24/23 11:02 Freq: Status: Active Protocol: Activity Type Activity Date Activity User E-sign Co-sign Detail Recorded Client Recorded Date Recorded By Document 04/24/23 11:40 [facility] Desktop 04/24/23 11:41 [facility] Document 05/01/23 10:45 VT Desktop 05/01/23 10:46 VT 04/24/23 05/01/23 11:40 10:45 Wound Care Center Nurse 3 #3 L Lateral Plantar Foot -Ulcer Cleansing Rinsed/ Rinsed/ Irrigated with Irrigated with Saline Saline -Foul Odor after Cleansing No No -Negative Pressure Wound Therapy N/A -Primary Dressing Applied Aquacel AG 4x4 Aquacel AG 4x4 -Primary Dressing Covered/Secured with Dry Gauze & Dry Gauze & Roll Gauze, Roll Gauze, Secured with Secured with Tape Tape -Aquacel AG 4x4 1 1 Treatment Response Procedure Tolerated Well Pain Scale: 0-10 Numeric Is Patient Pain Free? Yes No WC - Visit Discharge Discharge Condition Stable Stable Ambulatory Status Ambulatory Ambulatory Transportation Private Auto Private Auto Accompanied by Medication Reconcilliation completed & No provided to patient/care provider Clinical Summary of Care Provided Yes Assessment/Plan Assessment/Plan (1) Abscess of left foot excluding toes: CODE(S): L02.612 - Cutaneous abscess of left foot (2) Delayed wound healing: CODE(S): T14.8XXD - Other injury of unspecified body region, subsequent encounter (3) Chronic ulcer of left foot with fat layer exposed: CODE(S): L97.522 - Non-pressure chronic ulcer of other part of left foot with fat layer exposed (4) HTN (hypertension): CODE(S): I10 - Essential (primary) hypertension QUALIFIERS: Hypertension type: primary hypertension Qualified Code(s): I10 - Essential (primary) hypertension (5) Pressure ulcer of left foot, stage 3: CODE(S): L89.893 - Pressure ulcer of other site, stage 3 PLAN: Plan Debridement performed today in clinic as annotated above. At home wound-care instructions: Wash ulcer daily with antibacterial soap and water. Apply Aquacel Ag to ulcer and cover with gauze and ABD and roll gauze to secure daily. Keep dressing clean and dry. He modified the insole of his work boot to offload pressure to the area of his left foot. Would consider CT of foot to evaluate for osteomyelitis if not improving. Off-loading: The patient was instructed to avoid pressure and friction on the affected areas. Reposition every 2 hours at minimum. Avoid prolonged standing and/or dangling of legs. When seated, feet should be elevated at chest level. Frequent ambulation is encouraged. Diet: Patient encouraged to increase protein intake while taking caution to avoid high carbohydrate and/or sugar intake. Labs/cultures/imaging: Wound culture positive and is currently on Doxycycline. Follow-up: Return in 1 week for wound care follow up. Return sooner or report to the emergency room should symptoms worsen, or new symptoms arise. Note: [employer] speech recognition area director software was used to create portions of this document. Sound-alike and misspelled words, as well as other area director errors may be contained in the documentation.
[2023-05-08 10:37] VITALS: BP 126/70; PULSE 68; RESP 18; TEMP 35.9
--- NOTE | 2023-05-08 14:19 | PN.PCM_ITS ---
History of Present Illness Date of Service: 05/08/23 Chief Complaint: nonhealing wound left plantar foot History of Wound: Jose J is a 67 y/o gentleman that presents to the wound healing center for evaluation and treatment of a wound to his left plantar foot. He is a patient of Dr. Giordano. He has had a wound to this same area in February 2019 and was seen at [facility] [place] and treated there for 9 weeks with Aquacel and was placed in a wedge shoe to offload his foot. He was treated for this same wound for almost a year at this wound center and was healed in May 2020 and returned in July and was treated until September. He has undergone vascular testing at [facility] in 2018 but not since that time. 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 He and his did not want to do surgery. He has managed to do well over the last 2 years until the end of October when the area became painful again and began draining. He saw Dr. Giordano and was treated with doxycycline which helped and they had been applying Aquacel that they had from previous treatment but it has not improved. He was treated with a second course of doxycycline and then referred here for treatment. He is still working and walking on his foot in a steel toe boot 4 days a week for 10 hours. He had an offloading pad in his work boot previously but no longer has this in place. He denies claudication with walking. He has moderate to heavy drainage from the ulcer. He has not had any wound cultures taken. 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 He denies fever, chill, nausea, vomiting, redness or odor. Subjective Subjective Jose J returns today for follow up of an ulcer on the bottom of his left foot. He continues treatment with doxycycline. Wound culture was positive for staph and group B strep. He continues doxycycline. He continues to wear his modified work boot to alleviate pressure to the site of the ulcer of his left foot. He has been tolerating the Aquacel Ag to the ulcer. The area is improved but callus continues to form but it has been less. He has had moderate drainage. He denies fever, chills or odor. Objective Data Objective Data Vital Signs: Vital Signs Temp Pulse Resp BP O2 Del Method 96.7 F L 68 18 126/70 H Room Air 05/08/23 10:37 05/08/23 10:37 05/08/23 10:37 05/08/23 10:37 05/01/23 09:53 Oxygen Delivery Method Room Air Physical Exam Const alert, oriented x3 and no apparent distress General Appearance: cooperative and comfortable HEENT normocephalic and head/scalp atraumatic Resp normal respiratory effort Effort and Inspection: able to speak in complete sentences Cardio regular rate and regular rhythm Skin Wounds: wounds noted Wound Narrative: as in clinical panel Psych mental status grossly normal, thought process normal, cooperative and affect normal Debridement Note Debridement Note Wound debrided: left lateral plantar foot ulcer Laterality: Left Wound Grade/Stage: Stage 3 Type of Debridement: Excisional debridement Anesthesia Used: 4% Lidocaine Solution and 5% Lidocaine Gel Depth: Down to and including healthy tissue and in the subcutaneous layer Percentage of wound debrided: 100 Instrument Used: #15 blade and Forceps Tissue Removed: Yellow slough, devitalized tissue Severity: Fat Layer Exposed Amount of bleeding with debridement: Mild Bleeding Controlled with: Compression and gauze Patient tolerated procedure: Patient tolerated procedure well Post-Debridement Measurements and Additional Note: Post-Debridement Measurements/Treatment - Nurse 1 - General Ulcer Assessment Start: 04/24/23 11:02 Freq: Status: Active Protocol: KANIKA Activity Type Activity Date Activity User E-sign Co-sign Detail Recorded Client Recorded Date Recorded By Document 04/24/23 11:02 PL Tablet 04/24/23 11:04 PL Document 05/01/23 09:53 MT Desktop 05/01/23 09:56 MT Document 05/08/23 10:37 RB Desktop 05/08/23 10:38 RB 04/24/23 05/01/23 05/08/23 11:02 09:53 10:37 - Today's Visit Information Type of service Follow-up Visit Follow-up Visit (Physician/ANALYST GEOCHEM[employer]OSPECTING (Physician/ANALYST GEOCHEMICAL PROSPECTING ) ) Arrival Mode Ambulatory Ambulatory Transfer Assistance None None Patient Identification Verified (Name & Yes Yes ) Patient Requires Transmission-Based No No Precautions Vital Signs Temperature (97.8 F-99.1 F) 97.6 F L 98.0 F 96.7 F L Temperature Source Temporal Oral Temporal Pulse Rate (60-100) 89 80 68 Pulse Location Monitor Monitor Respiratory Rate (12-18) 18 18 18 Respiratory rate source Observation Observation Oxygen Delivery Method Room Air Blood Pressure (90/60-120/80) 153/75 H 128/56 H 126/70 H Blood Pressure Mean (mm Hg) 101 80 88 Source Monitor Monitor Position Sitting Semi-Fowlers Blood Pressure Location Left Arm Left Arm History Since Last Visit- (Skip if this is Patient's initial visit) Have you changed medications since your No No last visit? Any new allergies or adverse reactions No No Had a fall/change in ADL's that may No No increase risk of falls Signs or symptoms of abuse and/or No No neglect since last visit Have you been in the hospital since your No No last visit? Has dressing in place as prescribed Yes Yes Has compression in place as prescribed N/A N/A No Has offloadiing in place as prescribed N/A N/A No Experienced any changes in pain level or No No management Left Footwear Regular Shoe Regular Shoe Right Footwear Regular Shoe Regular Shoe Pain Scale: 0-10 Numeric Is Patient Pain Free? Yes No Yes - Nurse 1 - General Ulcer Measurement Start: 04/24/23 11:02 Freq: Status: Active Protocol: Activity Type Activity Date Activity User E-sign Co-sign Detail Recorded Client Recorded Date Recorded By Document 05/01/23 09:53 MT Desktop 05/01/23 09:56 MT Document 05/08/23 10:37 Desktop 05/08/23 10:38 RB 05/01/23 05/08/23 09:53 10:37 Wound Center Nurse 1 #3 L Lateral Plantar Foot -Combined with other wound No -Current Size (cm) - Length 0.5 0.6 -Current Size (cm) - Width 1.5 1.8 -Current Size (cm) - Depth 0.1 0.1 -Total Square Cm 0.75 1.08 -Tunneling No No -Undermining/Tunneling No No -Circular Undermining No No -Exudate Amt Small Medium -Exudate Type Serosanguineous Serosanguineous -Wound Margin Flat & Intact Distinct, Outline Attached -Granulation Amt Large (67-100%) Medium (34-66%) -Granulation Quality Pale,[place] -Slough/Fibrin No Yes -Necrosis Amt Medium (34-66%) -Necrotic Tissue Type Adherent Slough -Structure Exposed N/A -Texture (Flory-wound Skin Appearance) Assessed, Assessed,Callus Excoriation -Moisture (Flory-wound Skin Appearance) Assessed Assessed -Color (Flory-wound Skin Appearance) Assessed Assessed -Temperature (Flory-wound Skin No Abnormality No Abnormality Appearance) (Pt Warm) (Pt Warm) -Tenderness on Palpation (Flory-wound No No Skin Appearance) -Ulcer Cleansing Soap and Water Wound Cleanser -Foul Odor after Cleansing No No -Anesthetic Used 4% Lidocaine 5% Lidocaine Solution Gel Lower Limb Edema Present NA WC - Nurse 2 - General Ulcer CM Notes Start: 04/24/23 11:02 Freq: Status: Active Protocol: Activity Type Activity Date Activity User E-sign Co-sign Detail Recorded Client Recorded Date Recorded By Document 04/24/23 11:12 GM Desktop 04/24/23 11:32 GM Document 05/01/23 10:10 GM Desktop 05/01/23 10:17 GM Document 05/01/23 10:30 GM Desktop 05/01/23 10:31 GM Document 05/08/23 11:23 MW Desktop 05/08/23 11:32 MW 04/24/23 05/01/23 05/01/23 11:12 10:10 10:30 Wound Center Nurse 2 #3 L Lateral Plantar Foot -Time 11:13 10:12 10:30 -Correct Patient Yes Yes Yes -Correct Side, Site, Position Yes Yes Yes -Correct Procedure Yes Yes Yes -Procedure Performed Yes Yes Yes -Type of Procedure Debridement Debridement Debridement -Clinical Debridement Subcutaneous Subcutaneous Subcutaneous -Tissue Removed Subcutaneous Subcutaneous Subcutaneous -Post Debridement (cm) - Length 0.6 0.5 -Post Debridement (cm) - Width 1.7 2.0 -Post Debridement (cm) - Depth 0.1 0.1 -Total Square (Post) (cm) 1.02 1.00 -Area of Debridement (cm) - Length 0.6 0.5 -Area of Debridement (cm) - Width 1.7 2.0 -Total Square (Area) (cm) 1.02 1.00 -Tunneling No No No -Undermining/Tunneling No No No -Circular Undermining No No No -Wound/Ulcer Outcome Not Healed Not Healed Not Healed -Ulcer Cleansing Rinsed/ Rinsed/ Rinsed/ Irrigated with Irrigated with Irrigated with Saline Saline Saline -Foul Odor after Cleansing No No No -Bioengineered Tissue No No No -Bleeding Controlled with Pressure Pressure Pressure -Treatment Response Procedure Procedure Procedure Tolerated Well Tolerated Well Tolerated Well -Offloading -Debridement - Subq, 1st 20sq cm Yes Yes Yes Pain Scale: 0-10 Numeric Is Patient Pain Free? Yes Yes Yes 05/08/23 11:23 Wound Center Nurse 2 #3 L Lateral Plantar Foot -Time 11:24 -Correct Patient Yes -Correct Side, Site, Position Yes -Correct Procedure Yes -Procedure Performed Yes -Type of Procedure Debridement -Clinical Debridement Subcutaneous -Tissue Removed Subcutaneous -Post Debridement (cm) - Length 0.5 -Post Debridement (cm) - Width 1.7 -Post Debridement (cm) - Depth 0.1 -Total Square (Post) (cm) 0.85 -Area of Debridement (cm) - Length 0.5 -Area of Debridement (cm) - Width 1.7 -Total Square (Area) (cm) 0.85 -Tunneling No -Undermining/Tunneling No -Circular Undermining No -Wound/Ulcer Outcome Not Healed -Ulcer Cleansing Rinsed/ Irrigated with Saline -Foul Odor after Cleansing No -Bioengineered Tissue No -Bleeding Controlled with Pressure -Treatment Response Procedure Tolerated Well -Offloading No -Debridement - Subq, 1st 20sq cm Yes Pain Scale: 0-10 Numeric Is Patient Pain Free? Yes - Nurse 3 - General Ulcer D/C NN Start: 04/24/23 11:02 Freq: Status: Active Protocol: Activity Type Activity Date Activity User E-sign Co-sign Detail Recorded Client Recorded Date Recorded By Document 04/24/23 11:40 [facility] Desktop 04/24/23 11:41 [facility] Document 05/01/23 10:45 CT Desktop 05/01/23 10:46 CT Document 05/08/23 11:40 [facility] Desktop 05/08/23 11:40 [facility] 04/24/23 05/01/23 05/08/23 11:40 10:45 11:40 Wound Care Center Nurse 3 #3 L Lateral Plantar Foot -Ulcer Cleansing Rinsed/ Rinsed/ Rinsed/ Irrigated with Irrigated with Irrigated with Saline Saline Saline -Foul Odor after Cleansing No No No -Negative Pressure Wound Therapy N/A -Primary Dressing Applied Aquacel AG 4x4 Aquacel AG 4x4 Aquacel AG 2x2 -Primary Dressing Covered/Secured with Dry Gauze & Dry Gauze & Dry Gauze & Roll Gauze, Roll Gauze, Roll Gauze, Secured with Secured with Secured with Tape Tape Tape -Aquacel AG 2x2 1 -Aquacel AG 4x4 1 1 Treatment Response Procedure Procedure Tolerated Well Tolerated Well Pain Scale: 0-10 Numeric Is Patient Pain Free? Yes No Yes WC - Visit Discharge Discharge Condition Stable Stable Stable Ambulatory Status Ambulatory Ambulatory Ambulatory Transportation Private Auto Private Auto Private Auto Accompanied by Medication Reconcilliation completed & No provided to patient/care provider Clinical Summary of Care Provided Yes Assessment/Plan Assessment/Plan (1) Abscess of left foot excluding toes: CODE(S): L02.612 - Cutaneous abscess of left foot (2) Delayed wound healing: CODE(S): T14.8XXD - Other injury of unspecified body region, subsequent encounter (3) Chronic ulcer of left foot with fat layer exposed: CODE(S): L97.522 - Non-pressure chronic ulcer of other part of left foot with fat layer exposed (4) HTN (hypertension): CODE(S): I10 - Essential (primary) hypertension QUALIFIERS: Hypertension type: primary hypertension Qualified Code(s): I10 - Essential (primary) hypertension (5) Pressure ulcer of left foot, stage 3: CODE(S): L89.893 - Pressure ulcer of other site, stage 3 PLAN: Plan Debridement performed today in clinic as annotated above. At home wound-care instructions: Wash ulcer daily with antibacterial soap and water. Apply Aquacel Ag to ulcer and cover with gauze and ABD and roll gauze to secure daily. Keep dressing clean and dry. He modified the insole of his work boot to offload pressure to the area of his left foot. Would consider CT of foot to evaluate for osteomyelitis if not improving. Off-loading: The patient was instructed to avoid pressure and friction on the affected areas. Reposition every 2 hours at minimum. Avoid prolonged standing and/or dangling of legs. When seated, feet should be elevated at chest level. Frequent ambulation is encouraged. Diet: Patient encouraged to increase protein intake while taking caution to avoid high carbohydrate and/or sugar intake. Labs/cultures/imaging: Wound culture positive and is currently on Doxycycline. Follow-up: Return in 2 weeks for wound care follow up. Return sooner or report to the emergency room should symptoms worsen, or new symptoms arise. Note: [employer] speech recognition press service reader software was used to create portio ns of this document. Sound-alike and misspelled words, as well as other press service reader errors may be contained in the documentation.
[2023-05-22 10:08] VITALS: BP 135/75; PULSE 72; RESP 16; TEMP 36.3
--- NOTE | 2023-05-22 11:56 | PCM.WC.PN ---
History of Present Illness Date of Service: 05/22/23 Chief Complaint: nonhealing wound left plantar foot History of Wound: Jose J is a 67 y/o gentleman that presents to the wound healing center for evaluation and treatment of a wound to his left plantar foot. He is a patient of Dr. Giordano. He has had a wound to this same area in February 2019 and was seen at [facility] and treated there for 9 weeks with Aquacel and was placed in a wedge shoe to offload his foot. He was treated for this same wound for almost a year at this wound center and was healed in May 2020 and returned in July and was treated until September. He has undergone vascular testing at [facility] in 2018 but not since that time. 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 He and his did not want to do surgery. He has managed to do well over the last 2 years until the end of October when the area became painful again and began draining. He saw Dr. Giordano and was treated with doxycycline which helped and they had been applying Aquacel that they had from previous treatment but it has not improved. He was treated with a second course of doxycycline and then referred here for treatment. He is still working and walking on his foot in a steel toe boot 4 days a week for 10 hours. He had an offloading pad in his work boot previously but no longer has this in place. He denies claudication with walking. He has moderate to heavy drainage from the ulcer. He has not had any wound cultures taken. 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 He denies fever, chill, nausea, vomiting, redness or odor. Subjective Subjective Jose J returns today for follow up of an ulcer on the bottom of his left foot. He continues treatment with doxycycline. Wound culture was positive for staph and group B strep. He continues doxycycline. He continues to wear his modified work boot to alleviate pressure to the site of the ulcer of his left foot. He has been tolerating the Aquacel Ag to the ulcer. The area is improved but callus continues to form but it has been less. He has had moderate drainage. He denies fever, chills or odor. Objective Data Objective Data Vital Signs: Vital Signs Temp Pulse Resp BP O2 Del Method 97.4 F L 72 16 135/75 H Room Air 05/22/23 10:08 05/22/23 10:08 05/22/23 10:08 05/22/23 10:08 05/22/23 10:08 Oxygen Delivery Method Room Air Physical Exam Const alert, oriented x3 and no apparent distress General Appearance: cooperative and comfortable HEENT normocephalic and head/scalp atraumatic Resp normal respiratory effort Effort and Inspection: able to speak in complete sentences Cardio regular rate and regular rhythm Skin Wounds: wounds noted Wound Narrative: as in clinical panel Psych mental status grossly normal, thought process normal, cooperative and affect normal Debridement Note Debridement Note Wound debrided: left lateral plantar foot ulcer Laterality: Left Wound Grade/Stage: Stage 3 Type of Debridement: Excisional debridement Anesthesia Used: 4% Lidocaine Solution and 5% Lidocaine Gel Depth: Down to and including healthy tissue and in the subcutaneous layer Percentage of wound debrided: 100 Instrument Used: #15 blade and Forceps Tissue Removed: Yellow slough, devitalized tissue Severity: Fat Layer Exposed Amount of bleeding with debridement: Mild Bleeding Controlled with: Compression and gauze Patient tolerated procedure: Patient tolerated procedure well Post-Debridement Measurements and Additional Note: Post-Debridement Measurements/Treatment - Nurse 1 - General Ulcer Assessment Start: 04/24/23 11:02 Freq: Status: Active Protocol: KANIKA Activity Type Activity Date Activity User E-sign Co-sign Detail Recorded Client Recorded Date Recorded By Document 04/24/23 11:02 PL Tablet 04/24/23 11:04 PL Document 05/01/23 09:53 [place] Desktop 05/01/23 09:56 MT Document 05/08/23 10:37 RB Desktop 05/08/23 10:38 RB Document 05/22/23 10:08 [facility] Desktop 05/22/23 10:12 [facility] 04/24/23 05/01/23 05/08/23 11:02 09:53 10:37 - Today's Visit Information Type of service Follow-up Visit Follow-up Visit (Physician/LEGISLATIVE ANALYST (Physician/LEGISLATIVE ANALYST ) ) Arrival Mode Ambulatory Ambulatory Transfer Assistance None None Accompanied by Patient Identification Verified (Name & Yes Yes ) Patient Requires Transmission-Based No No Precautions Vital Signs Temperature (97.8 F-99.1 F) 97.6 F L 98.0 F 96.7 F L Temperature Source Temporal Oral Temporal Pulse Rate (60-100) 89 80 68 Pulse Location Monitor Monitor Respiratory Rate (12-18) 18 18 18 Respiratory rate source Observation Observation Oxygen Delivery Method Room Air Blood Pressure (90/60-120/80) 153/75 H 128/56 H 126/70 H Blood Pressure Mean (mm Hg) 101 80 88 Source Monitor Monitor Position Sitting Semi-Fowlers Blood Pressure Location Left Arm Left Arm History Since Last Visit- (Skip if this is Patient's initial visit) Have you changed medications since your No No last visit? Any new allergies or adverse reactions No No Had a fall/change in ADL's that may No No increase risk of falls Signs or symptoms of abuse and/or No No neglect since last visit Have you been in the hospital since your No No last visit? Has dressing in place as prescribed Yes Yes Has compression in place as prescribed N/A N/A No Has offloadiing in place as prescribed N/A N/A No Experienced any changes in pain level or No No management Left Footwear Regular Shoe Regular Shoe Right Footwear Regular Shoe Regular Shoe Pain Scale: 0-10 Numeric Is Patient Pain Free? Yes No Yes 05/22/23 10:08 WC - Today's Visit Information Type of service Follow-up Visit (Physician/LEGISLATIVE ANALYST ) Arrival Mode Ambulatory Transfer Assistance None Accompanied by Patient Identification Verified (Name & Yes ) Patient Requires Transmission-Based No Precautions Vital Signs Temperature (97.8 F-99.1 F) 97.4 F L Temperature Source Temporal Pulse Rate (60-100) 72 Pulse Location Monitor Respiratory Rate (12-18) 16 Respiratory rate source Observation Oxygen Delivery Method Room Air Blood Pressure (90/60-120/80) 135/75 H Blood Pressure Mean (mm Hg) 95 Source Monitor Position Sitting Blood Pressure Location Left Arm History Since Last Visit- (Skip if this is Patient's initial visit) Have you changed medications since your No last visit? Any new allergies or adverse reactions No Had a fall/change in ADL's that may No increase risk of falls Signs or symptoms of abuse and/or No neglect since last visit Have you been in the hospital since your last visit? Has dressing in place as prescribed Yes Has compression in place as prescribed N/A Has offloadiing in place as prescribed N/A Experienced any changes in pain level or No management Left Footwear Regular Shoe Right Footwear Regular Shoe Pain Scale: 0-10 Numeric Is Patient Pain Free? Yes WC - Nurse 1 - General Ulcer Measurement Start: 04/24/23 11:02 Freq: Status: Active Protocol: Activity Type Activity Date Activity User E-sign Co-sign Detail Recorded Client Recorded Date Recorded By Document 05/01/23 09:53 MT Desktop 05/01/23 09:56 MT Document 05/08/23 10:37 RB Desktop 05/08/23 10:38 RB Document 05/22/23 10:08 BMF Desktop 05/22/23 10:12 BMF 05/01/23 05/08/23 05/22/23 09:53 10:37 10:08 Wound Center Nurse 1 #3 L Lateral Plantar Foot -Combined with other wound No No -Current Size (cm) - Length 0.5 0.6 0.1 -Current Size (cm) - Width 1.5 1.8 0.1 -Current Size (cm) - Depth 0.1 0.1 0.1 -Total Square Cm 0.75 1.08 0.01 -Date of Last Picture (Recall this 05/22/23 field) -Photo Taken Yes -Tunneling No No No -Undermining/Tunneling No No No -Circular Undermining No No No -Exudate Amt Small Medium Small -Exudate Type Serosanguineous Serosanguineous Serosanguineous -Wound Margin Flat & Intact Distinct, Distinct, Outline Outline Attached Attached -Granulation Amt Large (67-100%) Medium (34-66%) None Present (0 %) -Granulation Quality Pale,Stamps Stamps -Slough/Fibrin No Yes Yes -Necrosis Amt Medium (34-66%) Large (67-100%) -Necrotic Tissue Type Adherent Slough Adherent Slough -Structure Exposed N/A -Texture (Flory-wound Skin Appearance) Assessed, Assessed,Callus Assessed,Callus Excoriation ,Scarring -Moisture (Flory-wound Skin Appearance) Assessed Assessed Assessed,Dry/ Scaly -Color (Flory-wound Skin Appearance) Assessed Assessed Assessed -Temperature (Flory-wound Skin No Abnormality No Abnormality No Abnormality Appearance) (Pt Warm) (Pt Warm) (Pt Warm) -Tenderness on Palpation (Flory-wound No No No Skin Appearance) -Ulcer Cleansing Soap and Water Wound Cleanser Rinsed/ Irrigated with Saline -Foul Odor after Cleansing No No No -Anesthetic Used 4% Lidocaine 5% Lidocaine 5% Lidocaine Solution Gel Gel Lower Limb Edema Present NA WC - Nurse 2 - General Ulcer CM Notes Start: 04/24/23 11:02 Freq: Status: Active Protocol: Activity Type Activity Date Activity User E-sign Co-sign Detail Recorded Client Recorded Date Recorded By Document 04/24/23 11:12 GM Desktop 04/24/23 11:32 GM Document 05/01/23 10:10 GM Desktop 05/01/23 10:17 GM Document 05/01/23 10:30 GM Desktop 05/01/23 10:31 GM Document 05/08/23 11:23 MW Desktop 05/08/23 11:32 MW Document 05/22/23 10:21 GM Desktop 05/22/23 10:37 GM 04/24/23 05/01/23 05/01/23 11:12 10:10 10:30 Wound Center Nurse 2 #3 L Lateral Plantar Foot -Time 11:13 10:12 10:30 -Correct Patient Yes Yes Yes -Correct Side, Site, Position Yes Yes Yes -Correct Procedure Yes Yes Yes -Procedure Performed Yes Yes Yes -Type of Procedure Debridement Debridement Debridement -Clinical Debridement Subcutaneous Subcutaneous Subcutaneous -Tissue Removed Subcutaneous Subcutaneous Subcutaneous -Post Debridement (cm) - Length 0.6 0.5 -Post Debridement (cm) - Width 1.7 2.0 -Post Debridement (cm) - Depth 0.1 0.1 -Total Square (Post) (cm) 1.02 1.00 -Area of Debridement (cm) - Length 0.6 0.5 -Area of Debridement (cm) - Width 1.7 2.0 -Total Square (Area) (cm) 1.02 1.00 -Tunneling No No No -Undermining/Tunneling No No No -Circular Undermining No No No -Wound/Ulcer Outcome Not Healed Not Healed Not Healed -Ulcer Cleansing Rinsed/ Rinsed/ Rinsed/ Irrigated with Irrigated with Irrigated with Saline Saline Saline -Foul Odor after Cleansing No No No -Bioengineered Tissue No No No -Bleeding Controlled with Pressure Pressure Pressure -Treatment Response Procedure Procedure Procedure Tolerated Well Tolerated Well Tolerated Well -Offloading -Debridement - Subq, 1st 20sq cm Yes Yes Yes Pain Scale: 0-10 Numeric Is Patient Pain Free? Yes Yes Yes 05/08/23 05/22/23 11:23 10:21 Wound Center Nurse 2 #3 L Lateral Plantar Foot -Time 11:24 10:21 -Correct Patient Yes Yes -Correct Side, Site, Position Yes Yes -Correct Procedure Yes Yes -Procedure Performed Yes Yes -Type of Procedure Debridement Debridement -Clinical Debridement Subcutaneous Subcutaneous -Tissue Removed Subcutaneous Subcutaneous -Post Debridement (cm) - Length 0.5 1.2 -Post Debridement (cm) - Width 1.7 1.3 -Post Debridement (cm) - Depth 0.1 0.1 -Total Square (Post) (cm) 0.85 1.56 -Area of Debridement (cm) - Length 0.5 1.2 -Area of Debridement (cm) - Width 1.7 1.3 -Total Square (Area) (cm) 0.85 1.56 -Tunneling No No -Undermining/Tunneling No No -Circular Undermining No No -Wound/Ulcer Outcome Not Healed Not Healed -Ulcer Cleansing Rinsed/ Rinsed/ Irrigated with Irrigated with Saline Saline -Foul Odor after Cleansing No No -Bioengineered Tissue No No -Bleeding Controlled with Pressure Pressure -Treatment Response Procedure Procedure Tolerated Well Tolerated Well -Offloading No -Debridement - Subq, 1st 20sq cm Yes Yes Pain Scale: 0-10 Numeric Is Patient Pain Free? Yes Yes WC - Nurse 3 - General Ulcer D/C NN Start: 04/24/23 11:02 Freq: Status: Active Protocol: Activity Type Activity Date Activity User E-sign Co-sign Detail Recorded Client Recorded Date Recorded By Document 04/24/23 11:40 BMF Desktop 04/24/23 11:41 BMF Document 05/01/23 10:45 MT Desktop 05/01/23 10:46 MT Document 05/08/23 11:40 BMF Desktop 05/08/23 11:40 BMF Document 05/22/23 10:45 DL Desktop 05/22/23 10:46 DL 04/24/23 05/01/23 05/08/23 11:40 10:45 11:40 Wound Care Center Nurse 3 #3 L Lateral Plantar Foot -Ulcer Cleansing Rinsed/ Rinsed/ Rinsed/ Irrigated with Irrigated with Irrigated with Saline Saline Saline -Foul Odor after Cleansing No No No -Negative Pressure Wound Therapy N/A -Primary Dressing Applied Aquacel AG 4x4 Aquacel AG 4x4 Aquacel AG 2x2 -Primary Dressing Covered/Secured with Dry Gauze & Dry Gauze & Dry Gauze & Roll Gauze, Roll Gauze, Roll Gauze, Secured with Secured with Secured with Tape Tape Tape -Aquacel AG 2x2 1 -Aquacel AG 4x4 1 1 Treatment Response Procedure Procedure Tolerated Well Tolerated Well Pain Scale: 0-10 Numeric Is Patient Pain Free? Yes No Yes WC - Visit Discharge Discharge Condition Stable Stable Stable Ambulatory Status Ambulatory Ambulatory Ambulatory Transportation Private Auto Private Auto Private Auto Accompanied by Medication Reconcilliation completed & No provided to patient/care provider Clinical Summary of Care Provided Yes 05/22/23 10:45 Wound Care Center Nurse 3 #3 L Lateral Plantar Foot -Ulcer Cleansing Rinsed/ Irrigated with Saline -Foul Odor after Cleansing No -Negative Pressure Wound Therapy -Primary Dressing Applied Aquacel AG 4x4 -Primary Dressing Covered/Secured with Dry Gauze, Secured with Tape -Aquacel AG 2x2 -Aquacel AG 4x4 1 Treatment Response Procedure Tolerated Well Pain Scale: 0-10 Numeric Is Patient Pain Free? Yes WC - Visit Discharge Discharge Condition Stable Ambulatory Status Ambulatory Transportation Private Auto Accompanied by Medication Reconcilliation completed & provided to patient/care provider Clinical Summary of Care Provided Assessment/Plan Assessment/Plan (1) Abscess of left foot excluding toes: CODE(S): L02.612 - Cutaneous abscess of left foot (2) Delayed wound healing: CODE(S): T14.8XXD - Other injury of unspecified body region, subsequent encounter (3) Chronic ulcer of left foot with fat layer exposed: CODE(S): L97.522 - Non-pressure chronic ulcer of other part of left foot with fat layer exposed (4) HTN (hypertension): CODE(S): I10 - Essential (primary) hypertension QUALIFIERS: Hypertension type: primary hypertension Qualified Code(s): I10 - Essential (primary) hypertension (5) Pressure ulcer of left foot, stage 3: CODE(S): L89.893 - Pressure ulcer of other site, stage 3 PLAN: Plan Debridement performed today in clinic as annotated above. At home wound-care instructions: Wash ulcer daily with antibacterial soap and water. Apply Aquacel Ag to ulcer and cover with gauze and ABD and roll gauze to secure daily. Keep dressing clean and dry. He modified the insole of his work boot to offload pressure to the area of his left foot. Would consider CT of foot to evaluate for osteomyelitis if not improving. Off-loading: The patient was instructed to avoid pressure and friction on the affected areas. Reposition every 2 hours at minimum. Avoid prolonged standing and/or dangling of legs. When seated, feet should be elevated at chest level. Frequent ambulation is encouraged. Diet: Patient encouraged to increase protein intake while taking caution to avoid high carbohydrate and/or sugar intake. Labs/cultures/imaging: Wound culture positive and is currently on Doxycycline. Follow-up: Return in 2 weeks for wound care follow up. Return sooner or report to the emergency room should symptoms worsen, or new symptoms arise. Note: [employer]kicker speech recognition construction or leak gang laborer software was used to create portions of this document. Sound-alike and misspelled words, as well as other construction or leak gang laborer errors may be contained in the documentation.
== END 2023-05-24 23:59 | disposition home or self-care (01) ==
LOC: WC 10:15
PROVIDERS: PCP Family Medicine; Referring Provider Family Medicine; Visit Provider Family Medicine
DX: L89.893 Pressure ulcer of other site, stage 3 (principal); L02.612 Cutaneous abscess of left foot; I10 Essential (primary) hypertension; Z79.899 Other long term (current) drug therapy
CPT/HCPCS: 11042

== ENCOUNTER 2023-06-05 10:15 | Outpatient (RCR) | payer BC, SELFPAY ==
[2023-05-25 00:44] VITALS: BP 135/75; PULSE 72; RESP 16; TEMP 36.3
[2023-05-29 10:11] VITALS: BP 138/64; PULSE 73; RESP 18; TEMP 36.1
--- NOTE | 2023-05-29 12:45 | PN.PCM_ITS ---
History of Present Illness Date of Service: 05/29/23 Chief Complaint: nonhealing wound left plantar foot History of Wound: Jose J is a 67 y/o gentleman that presents to the wound healing center for evaluation and treatment of a wound to his left plantar foot. He is a patient of Dr. Giordano. He has had a wound to this same area in February 2019 and was seen at [facility] [place] and treated there for 9 weeks with Aquacel and was placed in a wedge shoe to offload his foot. He was treated for this same wound for almost a year at this wound center and was healed in May 2020 and returned in July and was treated until September. He has undergone vascular testing at [facility] in 2018 but not since that time. 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 He and his did not want to do surgery. He has managed to do well over the last 2 years until the end of October when the area became painful again and began draining. He saw Dr. Giordano and was treated with doxycycline which helped and they had been applying Aquacel that they had from previous treatment but it has not improved. He was treated with a second course of doxycycline and then referred here for treatment. He is still working and walking on his foot in a steel toe boot 4 days a week for 10 hours. He had an offloading pad in his work boot previously but no longer has this in place. He denies claudication with walking. He has moderate to heavy drainage from the ulcer. He has not had any wound cultures taken. 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 He denies fever, chill, nausea, vomiting, redness or odor. Subjective Subjective Jose J returns today for follow up of an ulcer on the bottom of his left foot. He continues treatment with doxycycline. Wound culture was positive for staph and group B strep. He continues doxycycline. He continues to wear his modified work boot to alleviate pressure to the site of the ulcer of his left foot. He has been tolerating the Aquacel Ag to the ulcer. The area is improved but callus continues to form but it has been less. He has had moderate drainage. He denies fever, chills or odor. Objective Data Objective Data Vital Signs: Vital Signs Temp Pulse Resp BP 96.9 F L 73 18 138/64 H 05/29/23 10:11 05/29/23 10:11 05/29/23 10:11 05/29/23 10:11 Physical Exam Const alert, oriented x3 and no apparent distress General Appearance: cooperative and comfortable HEENT normocephalic and head/scalp atraumatic Resp normal respiratory effort Effort and Inspection: able to speak in complete sentences Cardio regular rate and regular rhythm Skin Wounds: wounds noted Wound Narrative: as in clinical panel Psych mental status grossly normal, thought process normal, cooperative and affect normal Debridement Note Debridement Note Wound debrided: left lateral plantar foot ulcer Laterality: Left Wound Grade/Stage: Stage 3 Type of Debridement: Excisional debridement Anesthesia Used: 4% Lidocaine Solution and 5% Lidocaine Gel Depth: Down to and including healthy tissue and in the subcutaneous layer Percentage of wound debrided: 100 Instrument Used: 5mm curette Tissue Removed: Yellow slough, devitalized tissue Severity: Fat Layer Exposed Amount of bleeding with debridement: Mild Bleeding Controlled with: Compression and gauze Patient tolerated procedure: Patient tolerated procedure well Post-Debridement Measurements and Additional Note: Post-Debridement Measurements/Treatment - Nurse 1 - General Ulcer Assessment Start: 05/29/23 10:11 Freq: Status: Active Protocol: KANIKA Activity Type Activity Date Activity User E-sign Co-sign Detail Recorded Client Recorded Date Recorded By Document 05/29/23 10:11 Desktop 05/29/23 10:14 05/29/23 10:11 - Today's Visit Information Type of service Follow-up Visit (Physician/MANAGEMENT INFORMATION SYSTEMS DIRECTOR ) Arrival Mode Ambulatory Transfer Assistance None Patient Identification Verified (Name & Yes ) Patient Requires Transmission-Based No Precautions Vital Signs Temperature (97.8 F-99.1 F) 96.9 F L Temperature Source Temporal Pulse Rate (60-100) 73 Pulse Location Monitor Respiratory Rate (12-18) 18 Respiratory rate source Observation Blood Pressure (90/60-120/80) 138/64 H Blood Pressure Mean (mm Hg) 88 Source Monitor Position Semi-Fowlers Blood Pressure Location Left Arm History Since Last Visit- (Skip if this is Patient's initial visit) Have you changed medications since your No last visit? Any new allergies or adverse reactions No Had a fall/change in ADL's that may No increase risk of falls Signs or symptoms of abuse and/or No neglect since last visit Have you been in the hospital since your No last visit? Has dressing in place as prescribed Yes Has compression in place as prescribed No Has offloadiing in place as prescribed No Experienced any changes in pain level or No management Pain Scale: 0-10 Numeric Is Patient Pain Free? Yes WC - Nurse 1 - General Ulcer Measurement Start: 05/29/23 10:11 Freq: Status: Active Protocol: Activity Type Activity Date Activity User E-sign Co-sign Detail Recorded Client Recorded Date Recorded By Document 05/29/23 10:11 RB Desktop 05/29/23 10:14 RB 05/29/23 10:11 Wound Center Nurse 1 #3 L Lateral Plantar Foot -Combined with other wound No -Current Size (cm) - Length 0.5 -Current Size (cm) - Width 1 -Current Size (cm) - Depth 0.2 -Total Square Cm 0.5 -Tunneling No -Undermining/Tunneling No -Circular Undermining No -Exudate Amt Medium -Exudate Type Serosanguineous -Wound Margin Distinct, Outline Attached -Granulation Amt Medium (34-66%) -Granulation Quality [place] -Slough/Fibrin Yes -Necrosis Amt Medium (34-66%) -Necrotic Tissue Type Adherent Slough -Structure Exposed N/A -Texture (Flory-wound Skin Appearance) Assessed,Callus -Moisture (Flory-wound Skin Appearance) Assessed -Color (Flory-wound Skin Appearance) Assessed -Temperature (Flory-wound Skin No Abnormality Appearance) (Pt Warm) -Tenderness on Palpation (Lfory-wound No Skin Appearance) -Ulcer Cleansing Wound Cleanser -Foul Odor after Cleansing No -Anesthetic Used 5% Lidocaine Gel WC - Nurse 2 - General Ulcer CM Notes Start: 05/29/23 10:11 Freq: Status: Active Protocol: Activity Type Activity Date Activity User E-sign Co-sign Detail Recorded Client Recorded Date Recorded By Document 05/29/23 10:21 Desktop 05/29/23 10:31 05/29/23 10:21 Wound Center Nurse 2 -Time 10:23 -Correct Patient Yes -Correct Side, Site, Position Yes -Correct Procedure Yes -Procedure Performed Yes -Type of Procedure Debridement -Clinical Debridement Subcutaneous -Tissue Removed Subcutaneous -Post Debridement (cm) - Length 0.5 -Post Debridement (cm) - Width 0.8 -Post Debridement (cm) - Depth 0.1 -Total Square (Post) (cm) 0.40 -Area of Debridement (cm) - Length 0.5 -Area of Debridement (cm) - Width 0.8 -Total Square (Area) (cm) 0.40 -Tunneling No -Undermining/Tunneling No -Circular Undermining No -Wound/Ulcer Outcome Not Healed -Ulcer Cleansing Rinsed/ Irrigated with Saline -Foul Odor after Cleansing No -Bleeding Controlled with Pressure -Treatment Response Procedure Tolerated Well -Debridement - Subq, 1st 20sq cm Yes Pain Scale: 0-10 Numeric Is Patient Pain Free? Yes - Nurse 3 - General Ulcer D/C NN Start: 05/29/23 10:11 Freq: Status: Active Protocol: Activity Type Activity Date Activity User E-sign Co-sign Detail Recorded Client Recorded Date Recorded By Document 05/29/23 10:38 KW Desktop 05/29/23 10:39 KW 05/29/23 10:38 Wound Care Center Nurse 3 #3 L Lateral Plantar Foot -Ulcer Cleansing Soap and Water -Primary Dressing Applied Aquacel AG 4x4 -Primary Dressing Covered/Secured with Dry Gauze & Roll Gauze, Secured with Tape -Aquacel AG 4x4 1 Pain Scale: 0-10 Numeric Is Patient Pain Free? Yes - Visit Discharge Discharge Condition Stable Ambulatory Status Ambulatory Transportation Private Auto Medication Reconcilliation completed & No provided to patient/care provider Clinical Summary of Care Provided Yes Assessment/Plan Assessment/Plan (1) Abscess of left foot excluding toes: CODE(S): L02.612 - Cutaneous abscess of left foot (2) Delayed wound healing: CODE(S): T14.8XXD - Other injury of unspecified body region, subsequent encounter (3) Chronic ulcer of left foot with fat layer exposed: CODE(S): L97.522 - Non-pressure chronic ulcer of other part of left foot with fat layer exposed (4) HTN (hypertension): CODE(S): I10 - Essential (primary) hypertension QUALIFIERS: Hypertension type: primary hypertension Qualified Code(s): I10 - Essential (primary) hypertension (5) Pressure ulcer of left foot, stage 3: CODE(S): L89.893 - Pressure ulcer of other site, stage 3 PLAN: Plan Debridement performed today in clinic as annotated above. At home wound-care instructions: Wash ulcer daily with antibacterial soap and water. Apply Aquacel Ag to ulcer and cover with gauze and ABD and roll gauze to secure daily. Keep dressing clean and dry. He modified the insole of his work boot to offload pressure to the area of his left foot. Would consider CT of foot to evaluate for osteomyelitis if not improving. Off-loading: The patient was instructed to avoid pressure and friction on the affected areas. Reposition every 2 hours at minimum. Avoid prolonged standing and/or dangling of legs. When seated, feet should be elevated at chest level. Frequent ambulation is encouraged. Diet: Patient encouraged to increase protein intake while taking caution to avoid high carbohydrate and/or sugar intake. Labs/cultures/imaging: Wound culture positive and is currently on Doxycycline. Follow-up: Return in 1 week for wound care follow up. Return sooner or report to the emergency room should symptoms worsen, or new symptoms arise. Note: [employer] speech recognition legal transcriber software was used to create portions of this document. Sound-alike and misspelled words, as well as other legal transcriber errors may be contained in the documentation.
[2023-06-05 10:13] VITALS: BP 130/63; PULSE 77; RESP 18; TEMP 36.2
--- NOTE | 2023-06-05 13:44 | PCM.WC.PN ---
History of Present Illness Date of Service: 06/05/23 Chief Complaint: nonhealing wound left plantar foot History of Wound: Jose J is a 67 y/o gentleman that presents to the wound healing center for evaluation and treatment of a wound to his left plantar foot. He is a patient of Dr. Giordano. He has had a wound to this same area in February 2019 and was seen at [facility] [place] and treated there for 9 weeks with Aquacel and was placed in a wedge shoe to offload his foot. He was treated for this same wound for almost a year at this wound center and was healed in May 2020 and returned in July and was treated until September. He has undergone vascular testing at [facility] in 2018 but not since that time. 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 He and his did not want to do surgery. He has managed to do well over the last 2 years until the end of October when the area became painful again and began draining. He saw Dr. Giordano and was treated with doxycycline which helped and they had been applying Aquacel that they had from previous treatment but it has not improved. He was treated with a second course of doxycycline and then referred here for treatment. He is still working and walking on his foot in a steel toe boot 4 days a week for 10 hours. He had an offloading pad in his work boot previously but no longer has this in place. He denies claudication with walking. He has moderate to heavy drainage from the ulcer. He has not had any wound cultures taken. 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 He denies fever, chill, nausea, vomiting, redness or odor. Subjective Subjective Jose J returns today for follow up of an ulcer on the bottom of his left foot. He continues treatment with doxycycline. Wound culture was positive for staph and group B strep. He continues to wear his modified work boot to alleviate pressure to the site of the ulcer of his left foot. He has been tolerating the Aquacel Ag to the ulcer. The area is not worse but not improved but callus continues to form. He has had moderate drainage. He denies fever, chills or odor. Objective Data Objective Data Vital Signs: Vital Signs Temp Pulse Resp BP O2 Del Method 97.2 F L 77 18 130/63 H Room Air 06/05/23 10:13 06/05/23 10:13 06/05/23 10:13 06/05/23 10:13 06/05/23 10:13 Oxygen Delivery Method Room Air Physical Exam Const alert, oriented x3 and no apparent distress General Appearance: cooperative and comfortable HEENT normocephalic and head/scalp atraumatic Resp normal respiratory effort Effort and Inspection: able to speak in complete sentences Cardio regular rate and regular rhythm Skin Wounds: wounds noted Wound Narrative: as in clinical panel Psych mental status grossly normal, thought process normal, cooperative and affect normal Debridement Note Debridement Note Wound debrided: left lateral plantar foot ulcer Laterality: Left Wound Grade/Stage: Stage 3 Type of Debridement: Excisional debridement Anesthesia Used: 4% Lidocaine Solution and 5% Lidocaine Gel Depth: Down to and including healthy tissue and in the subcutaneous layer Percentage of wound debrided: 100 Instrument Used: 5mm curette Tissue Removed: Yellow slough, devitalized tissue Severity: Fat Layer Exposed Amount of bleeding with debridement: Mild Bleeding Controlled with: Compression and gauze Patient tolerated procedure: Patient tolerated procedure well Post-Debridement Measurements and Additional Note: Post-Debridement Measurements/Treatment - Nurse 1 - General Ulcer Assessment Start: 05/29/23 10:11 Freq: Status: Active Protocol: KANIKA Activity Type Activity Date Activity User E-sign Co-sign Detail Recorded Client Recorded Date Recorded By Document 05/29/23 10:11 RB Desktop 05/29/23 10:14 RB Document 06/05/23 10:13 KW Desktop 06/05/23 10:19 KW 05/29/23 06/05/23 10:11 10:13 - Today's Visit Information Type of service Follow-up Visit Follow-up Visit (Physician/BOW MACHINE OPERATOR (Physician/BOW MACHINE OPERATOR ) ) Arrival Mode Ambulatory Ambulatory Transfer Assistance None Accompanied by Patient Identification Verified (Name & Yes Yes ) Patient Requires Transmission-Based No Precautions Vital Signs Temperature (97.8 F-99.1 F) 96.9 F L 97.2 F L Temperature Source Temporal Temporal Pulse Rate (60-100) 73 77 Pulse Location Monitor Monitor Respiratory Rate (12-18) 18 18 Respiratory rate source Observation Observation Oxygen Delivery Method Room Air Blood Pressure (90/60-120/80) 138/64 H 130/63 H Blood Pressure Mean (mm Hg) 88 85 Source Monitor Monitor Position Semi-Fowlers Semi-Fowlers Blood Pressure Location Left Arm Left Arm History Since Last Visit- (Skip if this is Patient's initial visit) Have you changed medications since your No No last visit? Any new allergies or adverse reactions No No Had a fall/change in ADL's that may No No increase risk of falls Signs or symptoms of abuse and/or No No neglect since last visit Have you been in the hospital since your No No last visit? Has dressing in place as prescribed Yes Yes Has compression in place as prescribed No No Has offloadiing in place as prescribed No No Experienced any changes in pain level or No No management Left Footwear Regular Shoe Right Footwear Regular Shoe Pain Scale: 0-10 Numeric Is Patient Pain Free? Yes Yes WC - Nurse 1 - General Ulcer Measurement Start: 05/29/23 10:11 Freq: Status: Active Protocol: Activity Type Activity Date Activity User E-sign Co-sign Detail Recorded Client Recorded Date Recorded By Document 05/29/23 10:11 RB Desktop 05/29/23 10:14 RB Document 06/05/23 10:13 KW Desktop 06/05/23 10:19 KW 05/29/23 06/05/23 10:11 10:13 Wound Center Nurse 1 #3 L Lateral Plantar Foot -Combined with other wound No -Current Size (cm) - Length 0.5 0.5 -Current Size (cm) - Width 1 0.8 -Current Size (cm) - Depth 0.2 0.2 -Total Square Cm 0.5 0.40 -Tunneling No -Undermining/Tunneling No -Circular Undermining No -Exudate Amt Medium Small -Exudate Type Serosanguineous Serosanguineous -Wound Margin Distinct, Distinct, Outline Outline Attached Attached -Granulation Amt Medium (34-66%) Large (67-100%) -Granulation Quality [place] -Slough/Fibrin Yes -Necrosis Amt Medium (34-66%) Small (1-33%) -Necrotic Tissue Type Adherent Slough Adherent Slough -Structure Exposed N/A -Texture (Flory-wound Skin Appearance) Assessed,Callus Assessed,Callus -Moisture (Flory-wound Skin Appearance) Assessed Assessed -Color (Flory-wound Skin Appearance) Assessed Assessed -Temperature (Flory-wound Skin No Abnormality No Abnormality Appearance) (Pt Warm) (Pt Warm) -Tenderness on Palpation (Flory-wound No Skin Appearance) -Ulcer Cleansing Wound Cleanser Rinsed/ Irrigated with Saline -Foul Odor after Cleansing No No -Anesthetic Used 5% Lidocaine 5% Lidocaine Gel Gel WC - Nurse 2 - General Ulcer CM Notes Start: 05/29/23 10:11 Freq: Status: Active Protocol: Activity Type Activity Date Activity User E-sign Co-sign Detail Recorded Client Recorded Date Recorded By Document 05/29/23 10:21 [employer] 05/29/23 10:31 Document 06/05/23 10:24 [employer] 06/05/23 10:49 05/29/23 06/05/23 10:21 10:24 Wound Center Nurse 2 #3 L Lateral Plantar Foot -Time 10:23 10:24 -Correct Patient Yes Yes -Correct Side, Site, Position Yes Yes -Correct Procedure Yes Yes -Procedure Performed Yes Yes -Type of Procedure Debridement Debridement -Clinical Debridement Subcutaneous Subcutaneous -Tissue Removed Subcutaneous Subcutaneous -Post Debridement (cm) - Length 0.5 0.7 -Post Debridement (cm) - Width 0.8 1.5 -Post Debridement (cm) - Depth 0.1 0.1 -Total Square (Post) (cm) 0.40 1.05 -Area of Debridement (cm) - Length 0.5 0.7 -Area of Debridement (cm) - Width 0.8 1.5 -Total Square (Area) (cm) 0.40 1.05 -Tunneling No No -Undermining/Tunneling No No -Circular Undermining No No -Wound/Ulcer Outcome Not Healed Not Healed -Ulcer Cleansing Rinsed/ Irrigated with Saline -Foul Odor after Cleansing No -Bleeding Controlled with Pressure Pressure -Treatment Response Procedure Procedure Tolerated Well Tolerated Well -Debridement - Subq, 1st 20sq cm Yes Yes Pain Scale: 0-10 Numeric Is Patient Pain Free? Yes Yes QUOC - Nurse 3 - General Ulcer D/C NN Start: 05/29/23 10:11 Freq: Status: Active Protocol: Activity Type Activity Date Activity User E-sign Co-sign Detail Recorded Client Recorded Date Recorded By Document 05/29/23 10:38 [email or web address] 05/29/23 10:39 KW Document 06/05/23 10:59 KW Desktop 06/05/23 11:00 KW 05/29/23 06/05/23 10:38 10:59 Wound Care Center Nurse 3 #3 L Lateral Plantar Foot -Ulcer Cleansing Soap and Water -Primary Dressing Applied Aquacel AG 4x4 Aquacel Extra -Primary Dressing Covered/Secured with Dry Gauze & Dry Gauze & Roll Gauze, Roll Gauze, Secured with Secured with Tape Tape -Aquacel Extra 2 -Aquacel AG 4x4 1 Pain Scale: 0-10 Numeric Is Patient Pain Free? Yes Yes WC - Visit Discharge Discharge Condition Stable Stable Ambulatory Status Ambulatory Ambulatory Transportation Private Auto Private Auto Medication Reconcilliation completed & No No provided to patient/care provider Clinical Summary of Care Provided Yes Yes Assessment/Plan Assessment/Plan (1) Abscess of left foot excluding toes: CODE(S): L02.612 - Cutaneous abscess of left foot (2) Delayed wound healing: CODE(S): T14.8XXD - Other injury of unspecified body region, subsequent encounter (3) Chronic ulcer of left foot with fat layer exposed: CODE(S): L97.522 - Non-pressure chronic ulcer of other part of left foot with fat layer exposed (4) HTN (hypertension): CODE(S): I10 - Essential (primary) hypertension QUALIFIERS: Hypertension type: primary hypertension Qualified Code(s): I10 - Essential (primary) hypertension (5) Pressure ulcer of left foot, stage 3: CODE(S): L89.893 - Pressure ulcer of other site, stage 3 PLAN: Plan Debridement performed today in clinic as annotated above. At home wound-care instructions: Wash ulcer daily with antibacterial soap and water. Try changing to Aquacel Extra without silver to ulcer and cover with gauze and ABD and roll gauze to secure daily. Keep dressing clean and dry. Asked him to bring his work boot with him to see if we can better modify to offload pressure. Off-loading: The patient was instructed to avoid pressure and friction on the affected areas. Reposition every 2 hours at minimum. Avoid prolonged standing and/or dangling of legs. When seated, feet should be elevated at chest level. Frequent ambulation is encouraged. Diet: Patient encouraged to increase protein intake while taking caution to avoid high carbohydrate and/or sugar intake. Labs/cultures/imaging: Wound culture positive and is currently on Doxycycline. Follow-up: Return in 1 week for wound care follow up. Return sooner or report to the emergency room should symptoms worsen, or new symptoms arise. Note: [employer] speech recognition specification manager software was used to create portions of this document. Sound-alike and misspelled words, as well as other specification manager errors may be contained in the documentation.
== END 2023-06-24 23:59 | disposition home or self-care (01) ==
LOC: WC 10:15
PROVIDERS: PCP Family Medicine; Referring Provider Family Medicine; Visit Provider Family Medicine
DX: L89.893 Pressure ulcer of other site, stage 3 (principal); L02.612 Cutaneous abscess of left foot; I10 Essential (primary) hypertension; Z79.899 Other long term (current) drug therapy
CPT/HCPCS: 11042

== ENCOUNTER 2023-07-17 10:00 | Outpatient (RCR) | payer BC, SELFPAY ==
[2023-06-25 00:29] VITALS: BP 130/63; PULSE 77; RESP 18; TEMP 36.2
[2023-06-26 09:59] VITALS: BP 148/69; PULSE 80; TEMP 36.3
--- NOTE | 2023-06-26 13:10 | PCM.WC.PN ---
History of Present Illness Date of Service: 06/26/23 Chief Complaint: nonhealing wound left plantar foot History of Wound: Jose J is a 67 y/o gentleman that presents to the wound healing center for evaluation and treatment of a wound to his left plantar foot. He is a patient of Dr. Giordano. He has had a wound to this same area in February 2019 and was seen at [facility] and treated there for 9 weeks with Aquacel and was placed in a wedge shoe to offload his foot. He was treated for this same wound for almost a year at this wound center and was healed in May 2020 and returned in July and was treated until September. He has undergone vascular testing at [facility] in 2018 but not since that time. 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 He and his did not want to do surgery. He has managed to do well over the last 2 years until the end of October when the area became painful again and began draining. He saw Dr. Giordano and was treated with doxycycline which helped and they had been applying Aquacel that they had from previous treatment but it has not improved. He was treated with a second course of doxycycline and then referred here for treatment. He is still working and walking on his foot in a steel toe boot 4 days a week for 10 hours. He had an offloading pad in his work boot previously but no longer has this in place. He denies claudication with walking. He has moderate to heavy drainage from the ulcer. He has not had any wound cultures taken. 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 He denies fever, chill, nausea, vomiting, redness or odor. Subjective Subjective Jose J returns today for follow up of an ulcer on the bottom of his left foot. He continues treatment with doxycycline. Wound culture was positive for staph and group B strep. He continues to wear his modified work boot to alleviate pressure to the site of the ulcer of his left foot. He has been tolerating the Aquacel Extra to the ulcer. The area is improved but callus continues to form. He has had moderate drainage. He denies fever, chills or odor. Objective Data Objective Data Vital Signs: Vital Signs Temp Pulse Resp BP O2 Del Method 97.4 F L 80 18 148/69 H Room Air 06/26/23 09:59 06/26/23 09:59 06/25/23 00:29 06/26/23 09:59 06/26/23 09:59 Oxygen Delivery Method Room Air Physical Exam Const alert, oriented x3 and no apparent distress General Appearance: cooperative and comfortable HEENT normocephalic and head/scalp atraumatic Resp normal respiratory effort Effort and Inspection: able to speak in complete sentences Cardio regular rate and regular rhythm Skin Wounds: wounds noted Wound Narrative: as in clinical panel Psych mental status grossly normal, thought process normal, cooperative and affect normal Debridement Note Debridement Note Wound debrided: left lateral plantar foot ulcer Laterality: Left Wound Grade/Stage: Stage 3 Type of Debridement: Excisional debridement Anesthesia Used: 4% Lidocaine Solution and 5% Lidocaine Gel Depth: Down to and including healthy tissue and in the subcutaneous layer Percentage of wound debrided: 100 Instrument Used: 5mm curette Tissue Removed: Yellow slough, devitalized tissue Severity: Fat Layer Exposed Amount of bleeding with debridement: Mild Bleeding Controlled with: Compression and gauze Patient tolerated procedure: Patient tolerated procedure well Post-Debridement Measurements and Additional Note: Post-Debridement Measurements/Treatment - Nurse 1 - General Ulcer Assessment Start: 06/26/23 09:59 Freq: Status: Active Protocol: KANIKA Activity Type Activity Date Activity User E-sign Co-sign Detail Recorded Client Recorded Date Recorded By Document 06/26/23 09:59 Desktop 06/26/23 10:06 06/26/23 09:59 - Today's Visit Information Type of service Follow-up Visit (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/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 ) Arrival Mode Ambulatory Transfer Assistance None Accompanied by Patient Identification Verified (Name & Yes ) Patient Requires Transmission-Based No Precautions Vital Signs Temperature (97.8 F-99.1 F) 97.4 F L Temperature Source Temporal Pulse Rate (60-100) 80 Pulse Location Monitor Respiratory rate source Observation Oxygen Delivery Method Room Air Blood Pressure (90/60-120/80) 148/69 H Blood Pressure Mean (mm Hg) 95 Source Monitor Position Semi-Fowlers Blood Pressure Location Left Arm History Since Last Visit- (Skip if this is Patient's initial visit) Have you changed medications since your No last visit? Any new allergies or adverse reactions No Had a fall/change in ADL's that may No increase risk of falls Signs or symptoms of abuse and/or No neglect since last visit Have you been in the hospital since your No last visit? Has dressing in place as prescribed Yes Has compression in place as prescribed N/A Has offloadiing in place as prescribed N/A Experienced any changes in pain level or No management Left Footwear Regular Shoe Right Footwear Regular Shoe Pain Scale: 0-10 Numeric Is Patient Pain Free? Yes WC - Nurse 1 - General Ulcer Measurement Start: 06/26/23 09:59 Freq: Status: Active Protocol: Activity Type Activity Date Activity User E-sign Co-sign Detail Recorded Client Recorded Date Recorded By Document 06/26/23 09:59 Desktop 06/26/23 10:06 06/26/23 09:59 Wound Center Nurse 1 #3 L Lateral Plantar Foot -Combined with other wound No -Current Size (cm) - Length 0.5 -Current Size (cm) - Width 0.6 -Current Size (cm) - Depth 0.1 -Total Square Cm 0.30 -Photo Taken No -Epithelialization Small 1-33% -Tunneling No -Undermining/Tunneling No -Circular Undermining No -Exudate Amt None Present -Wound Margin Distinct, Outline Attached -Granulation Amt Medium (34-66%) -Granulation Quality Red -Slough/Fibrin No -Structure Exposed N/A -Texture (Flory-wound Skin Appearance) Assessed, Scarring -Moisture (Flory-wound Skin Appearance) Assessed -Color (Flory-wound Skin Appearance) Assessed -Temperature (Flory-wound Skin No Abnormality Appearance) (Pt Warm) -Ulcer Cleansing Rinsed/ Irrigated with Saline -Foul Odor after Cleansing No -Anesthetic Used 5% Lidocaine Gel - Nurse 2 - General Ulcer CM Notes Start: 06/26/23 09:59 Freq: Status: Active Protocol: Activity Type Activity Date Activity User E-sign Co-sign Detail Recorded Client Recorded Date Recorded By Document 06/26/23 10:28 Desktop 06/26/23 10:40 GM 06/26/23 10:28 Wound Center Nurse 2 -Time 10:28 -Correct Patient Yes -Correct Side, Site, Position Yes -Correct Procedure Yes -Procedure Performed Yes -Type of Procedure Debridement -Clinical Debridement Subcutaneous -Tissue Removed Subcutaneous -Post Debridement (cm) - Length 0.9 -Post Debridement (cm) - Width 0.8 -Post Debridement (cm) - Depth 0.1 -Total Square (Post) (cm) 0.72 -Area of Debridement (cm) - Length 0.9 -Area of Debridement (cm) - Width 0.8 -Total Square (Area) (cm) 0.72 -Tunneling No -Undermining/Tunneling No -Circular Undermining No -Wound/Ulcer Outcome Not Healed -Ulcer Cleansing Rinsed/ Irrigated with Saline -Foul Odor after Cleansing No -Bioengineered Tissue No -Bleeding Controlled with Pressure -Treatment Response Procedure Tolerated Well -Offloading No -Debridement - Subq, 1st 20sq cm Yes Pain Scale: 0-10 Numeric Is Patient Pain Free? Yes - Nurse 3 - General Ulcer D/C NN Start: 06/26/23 09:59 Freq: Status: Active Protocol: Activity Type Activity Date Activity User E-sign Co-sign Detail Recorded Client Recorded Date Recorded By Document 06/26/23 10:55 KW Desktop 06/26/23 10:55 KW 06/26/23 10:55 Wound Care Center Nurse 3 #3 L Lateral Plantar Foot -Primary Dressing Applied Aquacel Extra -Primary Dressing Covered/Secured with Dry Gauze & Roll Gauze, Secured with Tape -Aquacel Extra 1 Pain Scale: 0-10 Numeric Is Patient Pain Free? Yes - Visit Discharge Discharge Condition Stable Ambulatory Status Ambulatory Transportation Private Auto Medication Reconcilliation completed & No provided to patient/care provider Clinical Summary of Care Provided Yes Assessment/Plan Assessment/Plan (1) Abscess of left foot excluding toes: CODE(S): L02.612 - Cutaneous abscess of left foot (2) Delayed wound healing: CODE(S): T14.8XXD - Other injury of unspecified body region, subsequent encounter (3) Chronic ulcer of left foot with fat layer exposed: CODE(S): L97.522 - Non-pressure chronic ulcer of other part of left foot with fat layer exposed (4) HTN (hypertension): CODE(S): I10 - Essential (primary) hypertension QUALIFIERS: Hypertension type: primary hypertension Qualified Code(s): I10 - Essential (primary) hypertension (5) Pressure ulcer of left foot, stage 3: CODE(S): L89.893 - Pressure ulcer of other site, stage 3 PLAN: Plan Debridement performed today in clinic as annotated above. At home wound-care instructions: Wash ulcer daily with antibacterial soap and water. Continue Aquacel Extra to ulcer and cover with gauze and roll gauze to secure daily. Keep dressing clean and dry. Asked him to bring his work boot with him to see if we can better modify to offload pressure. Off-loading: The patient was instructed to avoid pressure and friction on the affected areas. Reposition every 2 hours at minimum. Avoid prolonged standing and/or dangling of legs. When seated, feet should be elevated at chest level. Frequent ambulation is encouraged. Diet: Patient encouraged to increase protein intake while taking caution to avoid high carbohydrate and/or sugar intake. Labs/cultures/imaging: Wound culture positive and is currently on Doxycycline. Follow-up: Return in 1 week for wound care follow up. Return sooner or report to the emergency room should symptoms worsen, or new symptoms arise. Note: [employer] speech recognition button grader software was used to create portions of this document. Sound-alike and misspelled words, as well as other button grader errors may be contained in the documentation.
[2023-07-03 10:06] VITALS: BP 143/61; PULSE 79; RESP 18; TEMP 36.1
--- NOTE | 2023-07-03 12:50 | PN.PCM_ITS ---
History of Present Illness Date of Service: 07/03/23 Chief Complaint: nonhealing wound left plantar foot History of Wound: Jose J is a 67 y/o gentleman that presents to the wound healing center for evaluation and treatment of a wound to his left plantar foot. He is a patient of Dr. Giordano. He has had a wound to this same area in February 2019 and was seen at [facility] [place] and treated there for 9 weeks with Aquacel and was placed in a wedge shoe to offload his foot. He was treated for this same wound for almost a year at this wound center and was healed in May 2020 and returned in July and was treated until September. He has undergone vascular testing at [facility] in 2018 but not since that time. 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 He and his did not want to do surgery. He has managed to do well over the last 2 years until the end of October when the area became painful again and began draining. He saw Dr. Giordano and was treated with doxycycline which helped and they had been applying Aquacel that they had from previous treatment but it has not improved. He was treated with a second course of doxycycline and then referred here for treatment. He is still working and walking on his foot in a steel toe boot 4 days a week for 10 hours. He had an offloading pad in his work boot previously but no longer has this in place. He denies claudication with walking. He has moderate to heavy drainage from the ulcer. He has not had any wound cultures taken. 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 He denies fever, chill, nausea, vomiting, redness or odor. Subjective Subjective Jose J returns today for follow up of an ulcer on the bottom of his left foot. He continues treatment with doxycycline. Wound culture was positive for staph and group B strep. He continues to wear his modified work boot to alleviate pressure to the site of the ulcer of his left foot. He has been tolerating the Aquacel Extra to the ulcer. The area is improved but callus continues to form. He has had moderate drainage. He denies fever, chills or odor. Objective Data Objective Data Vital Signs: Vital Signs Temp Pulse Resp BP O2 Del Method 96.9 F L 79 18 143/61 H Room Air 07/03/23 10:06 07/03/23 10:06 07/03/23 10:06 07/03/23 10:06 07/03/23 10:06 Oxygen Delivery Method Room Air Physical Exam Const alert, oriented x3 and no apparent distress General Appearance: cooperative and comfortable HEENT normocephalic and head/scalp atraumatic Resp normal respiratory effort Effort and Inspection: able to speak in complete sentences Cardio regular rate and regular rhythm Skin Wounds: wounds noted Wound Narrative: as in clinical panel Psych mental status grossly normal, thought process normal, cooperative and affect normal Debridement Note Debridement Note Wound debrided: left lateral plantar foot ulcer Laterality: Left Wound Grade/Stage: Stage 3 Type of Debridement: Excisional debridement Anesthesia Used: 4% Lidocaine Solution and 5% Lidocaine Gel Depth: Down to and including healthy tissue and in the subcutaneous layer Percentage of wound debrided: 100 Instrument Used: #15 blade and Forceps Tissue Removed: Yellow slough, devitalized tissue Severity: Fat Layer Exposed Amount of bleeding with debridement: Mild Bleeding Controlled with: Compression and gauze Patient tolerated procedure: Patient tolerated procedure well Post-Debridement Measurements and Additional Note: Post-Debridement Measurements/Treatment - Nurse 1 - General Ulcer Assessment Start: 06/26/23 09:59 Freq: Status: Active Protocol: KANIKA Activity Type Activity Date Activity User E-sign Co-sign Detail Recorded Client Recorded Date Recorded By Document 06/26/23 09:59 [email or web address] 06/26/23 10:06 Document 07/03/23 10:06 [email or web address] 07/03/23 10:15 06/26/23 07/03/23 09:59 10:06 - Today's Visit Information Type of service Follow-up Visit Follow-up Visit (Physician/SYSTEMS 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 ADVISOR (Physician/SYSTEMS INTEGRATION ADVISOR ) ) Arrival Mode Ambulatory Ambulatory Transfer Assistance None Accompanied by Patient Identification Verified (Name & Yes Yes ) Patient Requires Transmission-Based No Precautions Vital Signs Temperature (97.8 F-99.1 F) 97.4 F L 96.9 F L Temperature Source Temporal Temporal Pulse Rate (60-100) 80 79 Pulse Location Monitor Monitor Respiratory Rate (12-18) 18 Respiratory rate source Observation Ausculation Oxygen Delivery Method Room Air Room Air Blood Pressure (90/60-120/80) 148/69 H 143/61 H Blood Pressure Mean (mm Hg) 95 88 Source Monitor Monitor Position Semi-Fowlers Sitting Blood Pressure Location Left Arm Left Arm History Since Last Visit- (Skip if this is Patient's initial visit) Have you changed medications since your No No last visit? Any new allergies or adverse reactions No No Had a fall/change in ADL's that may No No increase risk of falls Signs or symptoms of abuse and/or No No neglect since last visit Have you been in the hospital since your No No last visit? Has dressing in place as prescribed Yes Yes Has compression in place as prescribed N/A N/A Has offloadiing in place as prescribed N/A N/A Experienced any changes in pain level or No No management Left Footwear Regular Shoe Regular Shoe Right Footwear Regular Shoe Regular Shoe Pain Scale: 0-10 Numeric Is Patient Pain Free? Yes Yes WC - Nurse 1 - General Ulcer Measurement Start: 06/26/23 09:59 Freq: Status: Active Protocol: Activity Type Activity Date Activity User E-sign Co-sign Detail Recorded Client Recorded Date Recorded By Document 06/26/23 09:59 GM [email or web address] 06/26/23 10:06 GM Document 07/03/23 10:06 KW Desktop 07/03/23 10:15 KW 06/26/23 07/03/23 09:59 10:06 Wound Center Nurse 1 #3 L Lateral Plantar Foot -Combined with other wound No -Current Size (cm) - Length 0.5 0.5 -Current Size (cm) - Width 0.6 0.5 -Current Size (cm) - Depth 0.1 0.1 -Total Square Cm 0.30 0.25 -Photo Taken No -Epithelialization Small 1-33% -Tunneling No -Undermining/Tunneling No -Circular Undermining No -Exudate Amt None Present Small -Exudate Type Serosanguineous -Wound Margin Distinct, Distinct, Outline Outline Attached Attached -Granulation Amt Medium (34-66%) Large (67-100%) -Granulation Quality Red Red -Slough/Fibrin No -Structure Exposed N/A -Texture (Flory-wound Skin Appearance) Assessed, Assessed,Callus Scarring -Moisture (Flory-wound Skin Appearance) Assessed Assessed -Color (Flory-wound Skin Appearance) Assessed Assessed -Temperature (Flory-wound Skin No Abnormality No Abnormality Appearance) (Pt Warm) (Pt Warm) -Ulcer Cleansing Rinsed/ Rinsed/ Irrigated with Irrigated with Saline Saline -Foul Odor after Cleansing No -Anesthetic Used 5% Lidocaine 5% Lidocaine Gel Gel - Nurse 2 - General Ulcer CM Notes Start: 06/26/23 09:59 Freq: Status: Active Protocol: Activity Type Activity Date Activity User E-sign Co-sign Detail Recorded Client Recorded Date Recorded By Document 06/26/23 10:28 Desktop 06/26/23 10:40 Document 07/03/23 10:28 [id number] 07/03/23 10:42 06/26/23 07/03/23 10:28 10:28 Wound Center Nurse 2 #3 L Lateral Plantar Foot -Time 10:28 10:28 -Correct Patient Yes Yes -Correct Side, Site, Position Yes Yes -Correct Procedure Yes Yes -Procedure Performed Yes Yes -Type of Procedure Debridement Debridement -Clinical Debridement Subcutaneous Subcutaneous -Tissue Removed Subcutaneous Subcutaneous -Post Debridement (cm) - Length 0.9 0.6 -Post Debridement (cm) - Width 0.8 0.7 -Post Debridement (cm) - Depth 0.1 0.1 -Total Square (Post) (cm) 0.72 0.42 -Area of Debridement (cm) - Length 0.9 0.6 -Area of Debridement (cm) - Width 0.8 0.7 -Total Square (Area) (cm) 0.72 0.42 -Tunneling No No -Undermining/Tunneling No No -Circular Undermining No No -Wound/Ulcer Outcome Not Healed Not Healed -Ulcer Cleansing Rinsed/ Rinsed/ Irrigated with Irrigated with Saline Saline -Foul Odor after Cleansing No No -Bioengineered Tissue No No -Bleeding Controlled with Pressure Pressure -Treatment Response Procedure Procedure Tolerated Well Tolerated Well -Offloading No -Debridement - Subq, 1st 20sq cm Yes Yes Pain Scale: 0-10 Numeric Is Patient Pain Free? Yes Yes - Nurse 3 - General Ulcer D/C NN Start: 06/26/23 09:59 Freq: Status: Active Protocol: Activity Type Activity Date Activity User E-sign Co-sign Detail Recorded Client Recorded Date Recorded By Document 06/26/23 10:55 Desktop 06/26/23 10:55 KW Document 07/03/23 11:10 RB Desktop 07/03/23 11:10 RB 06/26/23 07/03/23 10:55 11:10 Wound Care Center Nurse 3 #3 L Lateral Plantar Foot -Ulcer Cleansing Rinsed/ Irrigated with Saline -Primary Dressing Applied Aquacel Extra Aquacel Extra -Primary Dressing Covered/Secured with Dry Gauze & Dry Gauze,Dry Roll Gauze, Gauze & Roll Secured with Gauze,Secured Tape with Tape -Aquacel Extra 1 1 Treatment Response Procedure Tolerated Well Pain Scale: 0-10 Numeric Is Patient Pain Free? Yes Yes Teaching: Wound Center Dressing Your Wound -Person Taught Patient,Family -Teaching Method Discussion, Demonstration -Response to teaching Verbalize understanding WC - Visit Discharge Discharge Condition Stable Stable Ambulatory Status Ambulatory Ambulatory Transportation Private Auto Private Auto Medication Reconcilliation completed & No No provided to patient/care provider Clinical Summary of Care Provided Yes Yes Assessment/Plan Assessment/Plan (1) Abscess of left foot excluding toes: CODE(S): L02.612 - Cutaneous abscess of left foot (2) Delayed wound healing: CODE(S): T14.8XXD - Other injury of unspecified body region, subsequent encounter (3) Chronic ulcer of left foot with fat layer exposed: CODE(S): L97.522 - Non-pressure chronic ulcer of other part of left foot with fat layer exposed (4) HTN (hypertension): CODE(S): I10 - Essential (primary) hypertension QUALIFIERS: Hypertension type: primary hypertension Qualified Code(s): I10 - Essential (primary) hypertension (5) Pressure ulcer of left foot, stage 3: CODE(S): L89.893 - Pressure ulcer of other site, stage 3 PLAN: Plan Debridement performed today in clinic as annotated above. At home wound-care instructions: Wash ulcer daily with antibacterial soap and water. Continue Aquacel Extra to ulcer and cover with gauze and roll gauze to secure daily. Keep dressing clean and dry. Asked him to bring his work boot with him to see if we can better modify to offload pressure. Off-loading: The patient was instructed to avoid pressure and friction on the affected areas. Reposition every 2 hours at minimum. Avoid prolonged standing and/or dangling of legs. When seated, feet should be elevated at chest level. Frequent ambulation is encouraged. Diet: Patient encouraged to increase protein intake while taking caution to avoid high carbohydrate and/or sugar intake. Labs/cultures/imaging: Wound culture positive and is currently on Doxycycline. Follow-up: Return in 1 week for wound care follow up. Return sooner or report to the emergency room should symptoms worsen, or new symptoms arise. Note: [employer] speech recognition senior director insight software was used to create portions of this document. Sound-alike and misspelled words, as well as other senior director insight errors may be contained in the documentation.
[2023-07-10 10:00] VITALS: BP 145/68; PULSE 75; RESP 18; TEMP 36.9
--- NOTE | 2023-07-10 10:42 | PN.PCM_ITS ---
History of Present Illness Date of Service: 07/10/23 Chief Complaint: nonhealing wound left plantar foot History of Wound: Jose J is a 67 y/o gentleman that presents to the wound healing center for evaluation and treatment of a wound to his left plantar foot. He is a patient of Dr. Giordano. He has had a wound to this same area in February 2019 and was seen at [facility] [place] and treated there for 9 weeks with Aquacel and was placed in a wedge shoe to offload his foot. He was treated for this same wound for almost a year at this wound center and was healed in May 2020 and returned in July and was treated until September. He has undergone vascular testing at [facility] in 2018 but not since that time. 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 He and his did not want to do surgery. He has managed to do well over the last 2 years until the end of October when the area became painful again and began draining. He saw Dr. Giordano and was treated with doxycycline which helped and they had been applying Aquacel that they had from previous treatment but it has not improved. He was treated with a second course of doxycycline and then referred here for treatment. He is still working and walking on his foot in a steel toe boot 4 days a week for 10 hours. He had an offloading pad in his work boot previously but no longer has this in place. He denies claudication with walking. He has moderate to heavy drainage from the ulcer. He has not had any wound cultures taken. 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 He denies fever, chill, nausea, vomiting, redness or odor. Subjective Subjective Jose J returns today for follow up of an ulcer on the bottom of his left foot. He continues treatment with doxycycline. He continues to wear his modified work boot to alleviate pressure to the site of the ulcer of his left foot. He has been tolerating the Aquacel Extra to the ulcer. The area is improved but callus continues to form. He has had increased drainage. He denies fever, chills or odor. Objective Data Objective Data Vital Signs: Vital Signs Temp Pulse Resp BP O2 Del Method 98.4 F 75 18 145/68 H Room Air 07/10/23 10:00 07/10/23 10:00 07/10/23 10:00 07/10/23 10:00 07/03/23 10:06 Oxygen Delivery Method Room Air Physical Exam Const alert, oriented x3 and no apparent distress General Appearance: cooperative and comfortable HEENT normocephalic and head/scalp atraumatic Resp normal respiratory effort Effort and Inspection: able to speak in complete sentences Cardio regular rate and regular rhythm Skin Wounds: wounds noted Wound Narrative: as in clinical panel Psych mental status grossly normal, thought process normal, cooperative and affect normal Debridement Note Debridement Note Wound debrided: left lateral plantar foot ulcer Laterality: Left Wound Grade/Stage: Stage 3 Type of Debridement: Excisional debridement Anesthesia Used: 4% Lidocaine Solution and 5% Lidocaine Gel Depth: Down to and including healthy tissue and in the subcutaneous layer Percentage of wound debrided: 100 Instrument Used: #15 blade and Forceps Tissue Removed: Yellow slough, devitalized tissue Severity: Fat Layer Exposed Amount of bleeding with debridement: Mild Bleeding Controlled with: Compression and gauze Patient tolerated procedure: Patient tolerated procedure well Post-Debridement Measurements and Additional Note: Post-Debridement Measurements/Treatment - Nurse 1 - General Ulcer Assessment Start: 06/26/23 09:59 Freq: Status: Active Protocol: KANIKA Activity Type Activity Date Activity User E-sign Co-sign Detail Recorded Client Recorded Date Recorded By Document 06/26/23 09:59 [employer] 06/26/23 10:06 Document 07/03/23 10:06 [employer] 07/03/23 10:15 KW Document 07/10/23 10:00 Desktop 07/10/23 10:02 RB 06/26/23 07/03/23 07/10/23 09:59 10:06 10:00 - Today's Visit Information Type of service Follow-up Visit Follow-up Visit Follow-up Visit (Physician/HIGH DENSITY TALC COATER OPERATOR (Physician/HIGH DENSITY TALC COATER OPERATOR (Physician/HIGH DENSITY TALC COATER OPERATOR ) ) ) Arrival Mode Ambulatory Ambulatory Ambulatory Transfer Assistance None None Accompanied by Patient Identification Verified (Name & Yes Yes Yes ) Patient Requires Transmission-Based No No Precautions Vital Signs Temperature (97.8 F-99.1 F) 97.4 F L 96.9 F L 98.4 F Temperature Source Temporal Temporal Temporal Pulse Rate (60-100) 80 79 75 Pulse Location Monitor Monitor Monitor Respiratory Rate (12-18) 18 18 Respiratory rate source Observation Ausculation Observation Oxygen Delivery Method Room Air Room Air Blood Pressure (90/60-120/80) 148/69 H 143/61 H 145/68 H Blood Pressure Mean (mm Hg) 95 88 93 Source Monitor Monitor Monitor Position Semi-Fowlers Sitting Sitting Blood Pressure Location Left Arm Left Arm Right Arm History Since Last Visit- (Skip if this is Patient's initial visit) Have you changed medications since your No No No last visit? Any new allergies or adverse reactions No No No Had a fall/change in ADL's that may No No No increase risk of falls Signs or symptoms of abuse and/or No No No neglect since last visit Have you been in the hospital since your No No No last visit? Has dressing in place as prescribed Yes Yes Yes Has compression in place as prescribed N/A N/A No Has offloadiing in place as prescribed N/A N/A Yes Experienced any changes in pain level or No No No management Left Footwear Regular Shoe Regular Shoe Regular Shoe Right Footwear Regular Shoe Regular Shoe Regular Shoe Pain Scale: 0-10 Numeric Is Patient Pain Free? Yes Yes Yes WC - Nurse 1 - General Ulcer Measurement Start: 06/26/23 09:59 Freq: Status: Active Protocol: Activity Type Activity Date Activity User E-sign Co-sign Detail Recorded Client Recorded Date Recorded By Document 06/26/23 09:59 [employer] 06/26/23 10:06 Document 07/03/23 10:06 KW [employer] 07/03/23 10:15 KW Document 07/10/23 10:00 RB Desktop 07/10/23 10:02 RB 06/26/23 07/03/23 07/10/23 09:59 10:06 10:00 Wound Center Nurse 1 #3 L Lateral Plantar Foot -Combined with other wound No No -Current Size (cm) - Length 0.5 0.5 0.5 -Current Size (cm) - Width 0.6 0.5 0.9 -Current Size (cm) - Depth 0.1 0.1 0.2 -Total Square Cm 0.30 0.25 0.45 -Photo Taken No Yes -Epithelialization Small 1-33% -Tunneling No No -Undermining/Tunneling No No -Circular Undermining No No -Exudate Amt None Present Small Medium -Exudate Type Serosanguineous Serosanguineous -Wound Margin Distinct, Distinct, Thickened Outline Outline Attached Attached -Granulation Amt Medium (34-66%) Large (67-100%) Medium (34-66%) -Granulation Quality Red Red [place] -Slough/Fibrin No Yes -Necrosis Amt Medium (34-66%) -Necrotic Tissue Type Adherent Slough -Structure Exposed N/A N/A -Texture (Flory-wound Skin Appearance) Assessed, Assessed,Callus Callus Scarring -Moisture (Flory-wound Skin Appearance) Assessed Assessed Assessed -Color (Flory-wound Skin Appearance) Assessed Assessed Assessed -Temperature (Flory-wound Skin No Abnormality No Abnormality No Abnormality Appearance) (Pt Warm) (Pt Warm) (Pt Warm) -Tenderness on Palpation (Flory-wound No Skin Appearance) -Ulcer Cleansing Rinsed/ Rinsed/ Wound Cleanser Irrigated with Irrigated with Saline Saline -Foul Odor after Cleansing No No -Anesthetic Used 5% Lidocaine 5% Lidocaine 5% Lidocaine Gel Gel Gel WC - Nurse 2 - General Ulcer CM Notes Start: 06/26/23 09:59 Freq: Status: Active Protocol: Activity Type Activity Date Activity User E-sign Co-sign Detail Recorded Client Recorded Date Recorded By Document 06/26/23 10:28 [employer] 06/26/23 10:40 Document 07/03/23 10:28 [id number] 07/03/23 10:42 Document 07/10/23 10:10 [employer] 07/10/23 10:25 06/26/23 07/03/23 07/10/23 10:28 10:28 10:10 Wound Center Nurse 2 #3 L Lateral Plantar Foot -Time 10:28 10:28 10:10 -Correct Patient Yes Yes Yes -Correct Side, Site, Position Yes Yes Yes -Correct Procedure Yes Yes Yes -Procedure Performed Yes Yes Yes -Type of Procedure Debridement Debridement Debridement -Clinical Debridement Subcutaneous Subcutaneous Subcutaneous -Tissue Removed Subcutaneous Subcutaneous Subcutaneous -Post Debridement (cm) - Length 0.9 0.6 0.5 -Post Debridement (cm) - Width 0.8 0.7 0.6 -Post Debridement (cm) - Depth 0.1 0.1 0.1 -Total Square (Post) (cm) 0.72 0.42 0.30 -Area of Debridement (cm) - Length 0.9 0.6 0.5 -Area of Debridement (cm) - Width 0.8 0.7 0.6 -Total Square (Area) (cm) 0.72 0.42 0.30 -Tunneling No No No -Undermining/Tunneling No No No -Circular Undermining No No No -Wound/Ulcer Outcome Not Healed Not Healed Not Healed -Ulcer Cleansing Rinsed/ Rinsed/ Rinsed/ Irrigated with Irrigated with Irrigated with Saline Saline Saline -Foul Odor after Cleansing No No No -Bioengineered Tissue No No No -Bleeding Controlled with Pressure Pressure Pressure -Treatment Response Procedure Procedure Procedure Tolerated Well Tolerated Well Tolerated Well -Offloading No -Debridement - Subq, 1st 20sq cm Yes Yes Yes Pain Scale: 0-10 Numeric Is Patient Pain Free? Yes Yes Yes - Nurse 3 - General Ulcer D/C NN Start: 06/26/23 09:59 Freq: Status: Active Protocol: Activity Type Activity Date Activity User E-sign Co-sign Detail Recorded Client Recorded Date Recorded By Document 06/26/23 10:55 [employer] 06/26/23 10:55 Document 07/03/23 11:10 Desktop 07/03/23 11:10 06/26/23 07/03/23 10:55 11:10 Wound Care Center Nurse 3 #3 L Lateral Plantar Foot -Ulcer Cleansing Rinsed/ Irrigated with Saline -Primary Dressing Applied Aquacel Extra Aquacel Extra -Primary Dressing Covered/Secured with Dry Gauze & Dry Gauze,Dry Roll Gauze, Gauze & Roll Secured with Gauze,Secured Tape with Tape -Aquacel Extra 1 1 Treatment Response Procedure Tolerated Well Pain Scale: 0-10 Numeric Is Patient Pain Free? Yes Yes Teaching: Wound Center Dressing Your Wound -Person Taught Patient,Family -Teaching Method Discussion, Demonstration -Response to teaching Verbalize understanding WC - Visit Discharge Discharge Condition Stable Stable Ambulatory Status Ambulatory Ambulatory Transportation Private Auto Private Auto Medication Reconcilliation completed & No No provided to patient/care provider Clinical Summary of Care Provided Yes Yes Assessment/Plan Assessment/Plan (1) Abscess of left foot excluding toes: CODE(S): L02.612 - Cutaneous abscess of left foot (2) Delayed wound healing: CODE(S): T14.8XXD - Other injury of unspecified body region, subsequent encounter (3) Chronic ulcer of left foot with fat layer exposed: CODE(S): L97.522 - Non-pressure chronic ulcer of other part of left foot with fat layer exposed (4) HTN (hypertension): CODE(S): I10 - Essential (primary) hypertension QUALIFIERS: Hypertension type: primary hypertension Qualified Code(s): I10 - Essential (primary) hypertension (5) Pressure ulcer of left foot, stage 3: CODE(S): L89.893 - Pressure ulcer of other site, stage 3 PLAN: Plan Debridement performed today in clinic as annotated above. At home wound-care instructions: Wash ulcer daily with antibacterial soap and water. Continue Aquacel Extra to ulcer and cover with gauze and roll gauze to secure daily. Keep dressing clean and dry. His work boot was modified on 07/03/23 to try to offload pressure. Off-loading: The patient was instructed to avoid pressure and friction on the affected areas. Reposition every 2 hours at minimum. Avoid prolonged standing and/or dangling of legs. When seated, feet should be elevated at chest level. Frequent ambulation is encouraged. Diet: Patient encouraged to increase protein intake while taking caution to avoid high carbohydrate and/or sugar intake. Labs/cultures/imaging: Wound culture positive 03/27/23 and is currently on Doxycycline. Wound culture taken today due to increased drainage. Follow-up: Return in 1 week for wound care follow up. Return sooner or report to the emergency room should symptoms worsen, or new symptoms arise. Note: The [employer] speech recognition automatic lathe setter software was used to create portions of this document. Sound-alike and misspelled words, as well as other automatic lathe setter errors may be contained in the documentation.
[2023-07-17 10:15] VITALS: BP 134/62; PULSE 75; RESP 18; TEMP 36.8
--- NOTE | 2023-07-17 12:51 | PCM.WC.PN ---
History of Present Illness Date of Service: 07/17/23 Chief Complaint: nonhealing wound left plantar foot History of Wound: Jose J is a 67 y/o gentleman that presents to the wound healing center for evaluation and treatment of a wound to his left plantar foot. He is a patient of Dr. Giordano. He has had a wound to this same area in February 2019 and was seen at [facility] [place] and treated there for 9 weeks with Aquacel and was placed in a wedge shoe to offload his foot. He was treated for this same wound for almost a year at this wound center and was healed in May 2020 and returned in July and was treated until September. He has undergone vascular testing at [facility] in 2018 but not since that time. 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 He and his did not want to do surgery. He has managed to do well over the last 2 years until the end of October when the area became painful again and began draining. He saw Dr. Giordano and was treated with doxycycline which helped and they had been applying Aquacel that they had from previous treatment but it has not improved. He was treated with a second course of doxycycline and then referred here for treatment. He is still working and walking on his foot in a steel toe boot 4 days a week for 10 hours. He had an offloading pad in his work boot previously but no longer has this in place. He denies claudication with walking. He has moderate to heavy drainage from the ulcer. He has not had any wound cultures taken. 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 He denies fever, chill, nausea, vomiting, redness or odor. Subjective Subjective Jose J returns today for follow up of an ulcer on the bottom of his left foot. He continues treatment with doxycycline. He continues to wear his modified work boot to alleviate pressure to the site of the ulcer of his left foot. He has been tolerating the Aquacel Extra to the ulcer. The area is improved but callus continues to form. He has had increased drainage. His culture results were positive for Strep and Staph in low amounts. He denies fever, chills or odor. Objective Data Objective Data Vital Signs: Vital Signs Temp Pulse Resp BP O2 Del Method 98.2 F 75 18 134/62 H Room Air 07/17/23 10:15 07/17/23 10:15 07/17/23 10:15 07/17/23 10:15 07/03/23 10:06 Oxygen Delivery Method Room Air Lab / Micro Data Micro: Microbiology 07/10/23 10:20 Wound - Plantar Gram Stain - Final 07/10/23 10:20 Wound - Plantar Wound Culture - Final Streptococcus agalactiae (B) Staphylococcus simulans 07/10/23 10:20 Wound - Plantar Anaerobic Culture - Final No anaerobic bacteria isolated. Physical Exam Const alert, oriented x3 and no apparent distress General Appearance: cooperative and comfortable HEENT normocephalic and head/scalp atraumatic Resp normal respiratory effort Effort and Inspection: able to speak in complete sentences Cardio regular rate and regular rhythm Skin Wounds: wounds noted Wound Narrative: as in clinical panel Psych mental status grossly normal, thought process normal, cooperative and affect normal Debridement Note Debridement Note Wound debrided: left lateral plantar foot ulcer Laterality: Left Wound Grade/Stage: Stage 3 Type of Debridement: Excisional debridement Anesthesia Used: 4% Lidocaine Solution and 5% Lidocaine Gel Depth: Down to and including healthy tissue and in the subcutaneous layer Percentage of wound debrided: 100 Instrument Used: 5mm curette Tissue Removed: Yellow slough, devitalized tissue Severity: Fat Layer Exposed Amount of bleeding with debridement: Mild Bleeding Controlled with: Compression and gauze Patient tolerated procedure: Patient tolerated procedure well Post-Debridement Measurements and Additional Note: Post-Debridement Measurements/Treatment - Nurse 1 - General Ulcer Assessment Start: 06/26/23 09:59 Freq: Status: Active Protocol: KANIKA Activity Type Activity Date Activity User E-sign Co-sign Detail Recorded Client Recorded Date Recorded By Document 06/26/23 09:59 GM Desktop 06/26/23 10:06 GM Document 07/03/23 10:06 KW Desktop 07/03/23 10:15 KW Document 07/10/23 10:00 RB Desktop 07/10/23 10:02 RB Document 07/17/23 10:15 RB Desktop 07/17/23 10:17 RB 06/26/23 07/03/23 07/10/23 09:59 10:06 10:00 WC - Today's Visit Information Type of service Follow-up Visit Follow-up Visit Follow-up Visit (Physician/ELECTROMECHANICAL EQUIPMENT ASSEMBLER (Physician/ELECTROMECHANICAL EQUIPMENT ASSEMBLER (Physician/ELECTROMECHANICAL EQUIPMENT ASSEMBLER ) ) ) Arrival Mode Ambulatory Ambulatory Ambulatory Transfer Assistance None None Accompanied by Patient Identification Verified (Name & Yes Yes Yes ) Patient Requires Transmission-Based No No Precautions Vital Signs Temperature (97.8 F-99.1 F) 97.4 F L 96.9 F L 98.4 F Temperature Source Temporal Temporal Temporal Pulse Rate (60-100) 80 79 75 Pulse Location Monitor Monitor Monitor Respiratory Rate (12-18) 18 18 Respiratory rate source Observation Ausculation Observation Oxygen Delivery Method Room Air Room Air Blood Pressure (90/60-120/80) 148/69 H 143/61 H 145/68 H Blood Pressure Mean (mm Hg) 95 88 93 Source Monitor Monitor Monitor Position Semi-Fowlers Sitting Sitting Blood Pressure Location Left Arm Left Arm Right Arm History Since Last Visit- (Skip if this is Patient's initial visit) Have you changed medications since your No No No last visit? Any new allergies or adverse reactions No No No Had a fall/change in ADL's that may No No No increase risk of falls Signs or symptoms of abuse and/or No No No neglect since last visit Have you been in the hospital since your No No No last visit? Has dressing in place as prescribed Yes Yes Yes Has compression in place as prescribed N/A N/A No Has offloadiing in place as prescribed N/A N/A Yes Experienced any changes in pain level or No No No management Left Footwear Regular Shoe Regular Shoe Regular Shoe Right Footwear Regular Shoe Regular Shoe Regular Shoe Pain Scale: 0-10 Numeric Is Patient Pain Free? Yes Yes Yes 07/17/23 10:15 [facility] Today's Visit Information Type of service Follow-up Visit (Physician/ELECTROMECHANICAL EQUIPMENT ASSEMBLER ) Arrival Mode Ambulatory Transfer Assistance None Accompanied by Patient Identification Verified (Name & Yes ) Patient Requires Transmission-Based No Precautions Vital Signs Temperature (97.8 F-99.1 F) 98.2 F Temperature Source Temporal Pulse Rate (60-100) 75 Pulse Location Monitor Respiratory Rate (12-18) 18 Respiratory rate source Observation Oxygen Delivery Method Blood Pressure (90/60-120/80) 134/62 H Blood Pressure Mean (mm Hg) 86 Source Monitor Position Semi-Fowlers Blood Pressure Location Left Arm History Since Last Visit- (Skip if this is Patient's initial visit) Have you changed medications since your No last visit? Any new allergies or adverse reactions No Had a fall/change in ADL's that may No increase risk of falls Signs or symptoms of abuse and/or No neglect since last visit Have you been in the hospital since your No last visit? Has dressing in place as prescribed Yes Has compression in place as prescribed No Has offloadiing in place as prescribed No Experienced any changes in pain level or No management Left Footwear Right Footwear Pain Scale: 0-10 Numeric Is Patient Pain Free? Yes WC - Nurse 1 - General Ulcer Measurement Start: 06/26/23 09:59 Freq: Status: Active Protocol: Activity Type Activity Date Activity User E-sign Co-sign Detail Recorded Client Recorded Date Recorded By Document 06/26/23 09:59 GM Desktop 06/26/23 10:06 GM Document 07/03/23 10:06 KW Desktop 07/03/23 10:15 KW Document 07/10/23 10:00 RB Desktop 07/10/23 10:02 RB Document 07/17/23 10:15 RB Desktop 07/17/23 10:17 RB 06/26/23 07/03/23 07/10/23 09:59 10:06 10:00 Wound Center Nurse 1 #3 L Lateral Plantar Foot -Combined with other wound No No -Current Size (cm) - Length 0.5 0.5 0.5 -Current Size (cm) - Width 0.6 0.5 0.9 -Current Size (cm) - Depth 0.1 0.1 0.2 -Total Square Cm 0.30 0.25 0.45 -Photo Taken No Yes -Epithelialization Small 1-33% -Tunneling No No -Undermining/Tunneling No No -Circular Undermining No No -Exudate Amt None Present Small Medium -Exudate Type Serosanguineous Serosanguineous -Wound Margin Distinct, Distinct, Thickened Outline Outline Attached Attached -Granulation Amt Medium (34-66%) Large (67-100%) Medium (34-66%) -Granulation Quality [place] -Slough/Fibrin No Yes -Necrosis Amt Medium (34-66%) -Necrotic Tissue Type Adherent Slough -Structure Exposed N/A N/A -Texture (Flory-wound Skin Appearance) Assessed, Assessed,Callus Callus Scarring -Moisture (Flory-wound Skin Appearance) Assessed Assessed Assessed -Color (Flory-wound Skin Appearance) Assessed Assessed Assessed -Temperature (Flory-wound Skin No Abnormality No Abnormality No Abnormality Appearance) (Pt Warm) (Pt Warm) (Pt Warm) -Tenderness on Palpation (Flory-wound No Skin Appearance) -Ulcer Cleansing Rinsed/ Rinsed/ Wound Cleanser Irrigated with Irrigated with Saline Saline -Foul Odor after Cleansing No No -Anesthetic Used 5% Lidocaine 5% Lidocaine 5% Lidocaine Gel Gel Gel 07/17/23 10:15 Wound Center Nurse 1 #3 L Lateral Plantar Foot -Combined with other wound No -Current Size (cm) - Length 0.3 -Current Size (cm) - Width 0.5 -Current Size (cm) - Depth 0.3 -Total Square Cm 0.15 -Photo Taken Yes -Epithelialization -Tunneling No -Undermining/Tunneling No -Circular Undermining No -Exudate Amt Large -Exudate Type Serosanguineous -Wound Margin Thickened & Rolled Under -Granulation Amt Medium (34-66%) -Granulation Quality [place] -Slough/Fibrin Yes -Necrosis Amt Medium (34-66%) -Necrotic Tissue Type Adherent Slough -Structure Exposed N/A -Texture (Flory-wound Skin Appearance) Assessed,Callus -Moisture (Flory-wound Skin Appearance) Assessed -Color (Flory-wound Skin Appearance) Assessed -Temperature (Flory-wound Skin No Abnormality Appearance) (Pt Warm) -Tenderness on Palpation (Flory-wound No Skin Appearance) -Ulcer Cleansing Wound Cleanser -Foul Odor after Cleansing No -Anesthetic Used 5% Lidocaine Gel WC - Nurse 2 - General Ulcer CM Notes Start: 06/26/23 09:59 Freq: Status: Active Protocol: Activity Type Activity Date Activity User E-sign Co-sign Detail Recorded Client Recorded Date Recorded By Document 06/26/23 10:28 GM Desktop 06/26/23 10:40 GM Document 07/03/23 10:28 GM [id number] 07/03/23 10:42 GM Document 07/10/23 10:10 GM Desktop 07/10/23 10:25 GM Document 07/17/23 10:34 GM Desktop 07/17/23 10:36 GM Edit Result 07/17/23 10:34 GM (1) Desktop 07/17/23 10:47 GM (1) #3 L Lateral Plantar Foot - Post Debridement (cm) - Length => 0.5 - Post Debridement (cm) - Width => 0.7 - Post Debridement (cm) - Depth => 0.2 - Total Square (Post) (cm) => 0.35 - Area of Debridement (cm) - Length => 0.5 - Area of Debridement (cm) - Width => 0.7 - Total Square (Area) (cm) => 0.35 06/26/23 07/03/23 07/10/23 10: 10: 10:10 Wound Center Nurse 2 #3 L Lateral Plantar Foot -Time 10: 10:10 -Correct Patient Yes Yes Yes -Correct Side, Site, Position Yes Yes Yes -Correct Procedure Yes Yes Yes -Procedure Performed Yes Yes Yes -Type of Procedure Debridement Debridement Debridement -Clinical Debridement Subcutaneous Subcutaneous Subcutaneous -Tissue Removed Subcutaneous Subcutaneous Subcutaneous -Post Debridement (cm) - Length 0.9 0.6 0.5 -Post Debridement (cm) - Width 0.8 0.7 0.6 -Post Debridement (cm) - Depth 0.1 0.1 0.1 -Total Square (Post) (cm) 0.72 0.42 0.30 -Area of Debridement (cm) - Length 0.9 0.6 0.5 -Area of Debridement (cm) - Width 0.8 0.7 0.6 -Total Square (Area) (cm) 0.72 0.42 0.30 -Tunneling No No No -Undermining/Tunneling No No No -Circular Undermining No No No -Wound/Ulcer Outcome Not Healed Not Healed Not Healed -Ulcer Cleansing Rinsed/ Rinsed/ Rinsed/ Irrigated with Irrigated with Irrigated with Saline Saline Saline -Foul Odor after Cleansing No No No -Bioengineered Tissue No No No -Bleeding Controlled with Pressure Pressure Pressure -Treatment Response Procedure Procedure Procedure Tolerated Well Tolerated Well Tolerated Well -Offloading No -Debridement - Subq, 1st 20sq cm Yes Yes Yes Pain Scale: 0-10 Numeric Is Patient Pain Free? Yes Yes Yes 07/17/23 10:34 Wound Center Nurse 2 #3 L Lateral Plantar Foot -Time 10:36 -Correct Patient Yes -Correct Side, Site, Position Yes -Correct Procedure Yes -Procedure Performed Yes -Type of Procedure Debridement -Clinical Debridement Subcutaneous -Tissue Removed Subcutaneous -Post Debridement (cm) - Length 0.5 -Post Debridement (cm) - Width 0.7 -Post Debridement (cm) - Depth 0.2 -Total Square (Post) (cm) 0.35 -Area of Debridement (cm) - Length 0.5 -Area of Debridement (cm) - Width 0.7 -Total Square (Area) (cm) 0.35 -Tunneling No -Undermining/Tunneling No -Circular Undermining No -Wound/Ulcer Outcome Not Healed -Ulcer Cleansing Rinsed/ Irrigated with Saline -Foul Odor after Cleansing No -Bioengineered Tissue No -Bleeding Controlled with Pressure -Treatment Response Procedure Tolerated Well -Offloading -Debridement - Subq, 1st 20sq cm Yes Pain Scale: 0-10 Numeric Is Patient Pain Free? Yes WC - Nurse 3 - General Ulcer D/C NN Start: 06/26/23 09:59 Freq: Status: Active Protocol: Activity Type Activity Date Activity User E-sign Co-sign Detail Recorded Client Recorded Date Recorded By Document 06/26/23 10:55 KW Desktop 06/26/23 10:55 KW Document 07/03/23 11:10 RB Desktop 07/03/23 11:10 RB Document 07/10/23 11:05 RB [id number] 07/10/23 11:06 RB Document 07/17/23 11:08 RB Desktop 07/17/23 11:08 RB 06/26/23 07/03/23 07/10/23 10:55 11:10 11:05 Wound Care Center Nurse 3 #3 L Lateral Plantar Foot -Ulcer Cleansing Rinsed/ Rinsed/ Irrigated with Irrigated with Saline Saline -Primary Dressing Applied Aquacel Extra Aquacel Extra Aquacel Extra -Primary Dressing Covered/Secured with Dry Gauze & Dry Gauze,Dry Dry Gauze,Dry Roll Gauze, Gauze & Roll Gauze & Roll Secured with Gauze,Secured Gauze,Secured Tape with Tape with Tape -Aquacel Extra 1 1 1 Treatment Response Procedure Procedure Tolerated Well Tolerated Well Pain Scale: 0-10 Numeric Is Patient Pain Free? Yes Yes Yes Teaching: Wound Center Dressing Your Wound -Person Taught Patient,Family Patient -Teaching Method Discussion, Discussion, Demonstration Demonstration -Response to teaching Verbalize Verbalize understanding understanding WC - Visit Discharge Discharge Condition Stable Stable Stable Ambulatory Status Ambulatory Ambulatory Ambulatory Transportation Private Auto Private Auto Private Auto Medication Reconcilliation completed & No No No provided to patient/care provider Clinical Summary of Care Provided Yes Yes Yes 07/17/23 11:08 Wound Care Center Nurse 3 #3 L Lateral Plantar Foot -Ulcer Cleansing Wound Cleanser -Primary Dressing Applied Aquacel Extra -Primary Dressing Covered/Secured with Dry Gauze & Roll Gauze, Secured with Tape -Aquacel Extra 1 Treatment Response Procedure Tolerated Well Pain Scale: 0-10 Numeric Is Patient Pain Free? Yes Teaching: Wound Center Dressing Your Wound -Person Taught -Teaching Method -Response to teaching WC - Visit Discharge Discharge Condition Stable Ambulatory Status Ambulatory Transportation Private Auto Medication Reconcilliation completed & No provided to patient/care provider Clinical Summary of Care Provided Yes Assessment/Plan Assessment/Plan (1) Abscess of left foot excluding toes: CODE(S): L02.612 - Cutaneous abscess of left foot (2) Delayed wound healing: CODE(S): T14.8XXD - Other injury of unspecified body region, subsequent encounter (3) Chronic ulcer of left foot with fat layer exposed: CODE(S): L97.522 - Non-pressure chronic ulcer of other part of left foot with fat layer exposed (4) HTN (hypertension): CODE(S): I10 - Essential (primary) hypertension QUALIFIERS: Hypertension type: primary hypertension Qualified Code(s): I10 - Essential (primary) hypertension (5) Pressure ulcer of left foot, stage 3: CODE(S): L89.893 - Pressure ulcer of other site, stage 3 PLAN: Plan Debridement performed today in clinic as annotated above. At home wound-care instructions: Wash ulcer daily with antibacterial soap and water. Continue Aquacel Extra to ulcer and cover with gauze and roll gauze to secure daily. Keep dressing clean and dry. His work boot was modified on 07/03/23 to try to offload pressure. Off-loading: The patient was instructed to avoid pressure and friction on the affected areas. Reposition every 2 hours at minimum. Avoid prolonged standing and/or dangling of legs. When seated, feet should be elevated at chest level. Frequent ambulation is encouraged. Diet: Patient encouraged to increase protein intake while taking caution to avoid high carbohydrate and/or sugar intake. Labs/cultures/imaging: Wound culture positive 03/27/23 and is currently on Doxycycline. Wound culture showed Staph and Strep and he will be started on Keflex based on sensitivities and use topical Gentamicin. Will discontinue doxycycline. Follow-up: Return in 2 weeks for wound care follow up. Return sooner or report to the emergency room should symptoms worsen, or new symptoms arise. Note: [employer] speech recognition superintendent overhead distribution software was used to create portions of this document. Sound-alike and misspelled words, as well as other superintendent overhead distribution errors may be contained in the documentation.
--- NOTE | 2023-07-31 12:50 | WC ---
2.16.24 RT LAT PLANTAR
== END 2023-07-23 23:59 | disposition home or self-care (01) ==
LOC: WC 10:00
PROVIDERS: PCP Family Medicine; Referring Provider Family Medicine; Visit Provider Family Medicine
DX: L89.893 Pressure ulcer of other site, stage 3 (principal); L02.612 Cutaneous abscess of left foot; I10 Essential (primary) hypertension; Z79.899 Other long term (current) drug therapy
CPT/HCPCS: 11042; 87070; 87075; 87077; 87186; 87205

== ENCOUNTER 2023-08-14 10:15 | Outpatient (RCR) | payer BC, SELFPAY ==
[2023-07-24 00:13] VITALS: BP 134/62; PULSE 75; RESP 18; TEMP 36.8
[2023-08-07 10:09] VITALS: BP 115/63; PULSE 71; RESP 18; TEMP 36.6
--- NOTE | 2023-08-07 11:29 | RAD_ITS ---
EXAM: XR LEFT FOOT COMPLETE, 3 OR MORE VIEWS CLINICAL INDICATION: LEFT FOOR ULCER R/O OSTEOMYELITIS TECHNIQUE: Frontal, lateral and oblique views of the left foot. COMPARISON: No relevant prior studies available. FINDINGS: BONES/JOINTS: Small soft tissue ulcer noted lateral to the fifth MTP joint. No underlying bone or joint abnormality. SOFT TISSUES: Normal. No soft tissue swelling or gas. No radiopaque foreign body. RAD/Foot min 3 Views IMPRESSION: Soft tissue ulcer without underlying bone or joint abnormality. Electronically Signed: Puma Nicole MD at 16:38 EDT ,
--- NOTE | 2023-08-07 14:37 | PCM.WC.PN ---
History of Present Illness Date of Service: 08/07/23 Chief Complaint: nonhealing wound left plantar foot History of Wound: Jose J is a 67 y/o gentleman that presents to the wound healing center for evaluation and treatment of a wound to his left plantar foot. He is a patient of Dr. Giordano. He has had a wound to this same area in February 2019 and was seen at [facility] [place] and treated there for 9 weeks with Aquacel and was placed in a wedge shoe to offload his foot. He was treated for this same wound for almost a year at this wound center and was healed in May 2020 and returned in July and was treated until September. He has undergone vascular testing at [facility] in 2018 but not since that time. 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 He and his did not want to do surgery. He has managed to do well over the last 2 years until the end of October when the area became painful again and began draining. He saw Dr. Giordano and was treated with doxycycline which helped and they had been applying Aquacel that they had from previous treatment but it has not improved. He was treated with a second course of doxycycline and then referred here for treatment. He is still working and walking on his foot in a steel toe boot 4 days a week for 10 hours. He had an offloading pad in his work boot previously but no longer has this in place. He denies claudication with walking. He has moderate to heavy drainage from the ulcer. He has not had any wound cultures taken. 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 He denies fever, chill, nausea, vomiting, redness or odor. Subjective Subjective Jose J returns today for follow up of an ulcer on the bottom of his left foot. He continues treatment with cephalexin. They stopped gentamicin topical treatment 2 days ago due to the ulcer worsening with drainage and pain. He continues to wear his modified work boot to alleviate pressure to the site of the ulcer of his left foot. He has been tolerating the Aquacel Extra to the ulcer. The area is improved but callus continues to form. He has had increased drainage. He denies fever, chills or odor. Objective Data Objective Data Vital Signs: Vital Signs Temp Pulse Resp BP 98 F 71 18 115/63 08/07/23 10:09 08/07/23 10:09 08/07/23 10:09 08/07/23 10:09 Physical Exam Const alert, oriented x3 and no apparent distress General Appearance: cooperative and comfortable HEENT normocephalic and head/scalp atraumatic Resp normal respiratory effort Effort and Inspection: able to speak in complete sentences Cardio regular rate and regular rhythm Skin Wounds: wounds noted Wound Narrative: as in clinical panel Psych mental status grossly normal, thought process normal, cooperative and affect normal Debridement Note Debridement Note Wound debrided: left lateral plantar foot ulcer Laterality: Left Wound Grade/Stage: Stage 3 Type of Debridement: Excisional debridement Anesthesia Used: 4% Lidocaine Solution and 5% Lidocaine Gel Depth: Down to and including healthy tissue and in the subcutaneous layer Percentage of wound debrided: 100 Instrument Used: 5mm curette Tissue Removed: Yellow slough, devitalized tissue Severity: Fat Layer Exposed Amount of bleeding with debridement: Mild Bleeding Controlled with: Compression and gauze Patient tolerated procedure: Patient tolerated procedure well Post-Debridement Measurements and Additional Note: Post-Debridement Measurements/Treatment - Nurse 1 - General Ulcer Assessment Start: 08/07/23 10:09 Freq: Status: Active Protocol: KANIKA Activity Type Activity Date Activity User E-sign Co-sign Detail Recorded Client Recorded Date Recorded By Document 08/07/23 10:09 Desktop 08/07/23 10:12 08/07/23 10:09 - Today's Visit Information Type of service Follow-up Visit (Physician/DRILL SHARPENER OPERATOR ) Arrival Mode Ambulatory Transfer Assistance None Patient Identification Verified (Name & Yes ) Patient Requires Transmission-Based No Precautions Vital Signs Temperature (97.8 F-99.1 F) 98 F Temperature Source Temporal Pulse Rate (60-100) 71 Pulse Location Monitor Respiratory Rate (12-18) 18 Respiratory rate source Observation Blood Pressure (90/60-120/80) 115/63 Blood Pressure Mean (mm Hg) 80 Source Monitor Position Semi-Fowlers Blood Pressure Location Left Arm History Since Last Visit- (Skip if this is Patient's initial visit) Have you changed medications since your No last visit? Any new allergies or adverse reactions No Had a fall/change in ADL's that may No increase risk of falls Signs or symptoms of abuse and/or No neglect since last visit Have you been in the hospital since your No last visit? Has dressing in place as prescribed Yes Has compression in place as prescribed No Has offloadiing in place as prescribed Yes Experienced any changes in pain level or No management Pain Scale: 0-10 Numeric Is Patient Pain Free? No L foot -Description Aching -Intensity 6 -Duration (hours) Chronic -Pain Behavior Withdrawal from Touch -Pain Aggravating Factors Exercise/ Activity -Alleviating Factors/Interventions Medication -Effectiveness of Alleviating Factor/ Moderately Intervention effective WC - Nurse 1 - General Ulcer Measurement Start: 08/07/23 10:09 Freq: Status: Active Protocol: Activity Type Activity Date Activity User E-sign Co-sign Detail Recorded Client Recorded Date Recorded By Document 08/07/23 10:09 RB Desktop 08/07/23 10:12 RB 08/07/23 10:09 Wound Center Nurse 1 #3 L Lateral Plantar Foot -Combined with other wound No -Current Size (cm) - Length 0.3 -Current Size (cm) - Width 0.4 -Current Size (cm) - Depth 0.3 -Total Square Cm 0.12 -Tunneling No -Undermining/Tunneling Yes -Undermining/Tunneling Starts (O'clock 12 ) -Undermining/Tunneling Ends (O'clock) 12 -Maximum Distance (cm) 0.4 -Circular Undermining No -Exudate Amt Medium -Exudate Type Serosanguineous -Wound Margin Thickened -Granulation Amt Medium (34-66%) -Granulation Quality [place] -Slough/Fibrin Yes -Necrosis Amt Medium (34-66%) -Structure Exposed N/A -Texture (Flory-wound Skin Appearance) Assessed,Callus -Moisture (Flory-wound Skin Appearance) Assessed -Color (Flory-wound Skin Appearance) Assessed -Temperature (Flory-wound Skin No Abnormality Appearance) (Pt Warm) -Tenderness on Palpation (Flory-wound No Skin Appearance) -Ulcer Cleansing Wound Cleanser -Foul Odor after Cleansing No -Anesthetic Used 5% Lidocaine Gel Lower Limb Edema Present Yes Left Calf (cm) 35 Left Ankle (cm) 24.2 WC - Nurse 2 - General Ulcer CM Notes Start: 08/07/23 10:09 Freq: Status: Active Protocol: Activity Type Activity Date Activity User E-sign Co-sign Detail Recorded Client Recorded Date Recorded By Document 08/07/23 10:16 GM Desktop 08/07/23 10:38 GM 08/07/23 10:16 Wound Center Nurse 2 #3 L Lateral Plantar Foot -Time 10:17 -Correct Patient Yes -Correct Side, Site, Position Yes -Correct Procedure Yes -Procedure Performed Yes -Type of Procedure Debridement -Clinical Debridement Subcutaneous -Tissue Removed Subcutaneous -Post Debridement (cm) - Length 1.0 -Post Debridement (cm) - Width 3.5 -Post Debridement (cm) - Depth 0.2 -Total Square (Post) (cm) 3.50 -Area of Debridement (cm) - Length 1.0 -Area of Debridement (cm) - Width 3.5 -Total Square (Area) (cm) 3.50 -Tunneling No -Undermining/Tunneling No -Circular Undermining No -Wound/Ulcer Outcome Not Healed -Ulcer Cleansing Rinsed/ Irrigated with Saline -Foul Odor after Cleansing No -Bleeding Controlled with Pressure -Treatment Response Procedure Tolerated Well -Debridement - Subq, 1st 20sq cm Yes Pain Scale: 0-10 Numeric Is Patient Pain Free? Yes - Nurse 3 - General Ulcer D/C NN Start: 08/07/23 10:09 Freq: Status: Active Protocol: Activity Type Activity Date Activity User E-sign Co-sign Detail Recorded Client Recorded Date Recorded By Document 08/07/23 10:50 KW Desktop 08/07/23 10:52 KW 08/07/23 10:50 Wound Care Center Nurse 3 #3 L Lateral Plantar Foot -Primary Dressing Applied Aquacel Extra -Primary Dressing Covered/Secured with Dry Gauze & Roll Gauze, Secured with Tape -Aquacel Extra 1 Pain Scale: 0-10 Numeric Is Patient Pain Free? Yes - Visit Discharge Discharge Condition Stable Ambulatory Status Ambulatory Transportation Private Auto Medication Reconcilliation completed & No provided to patient/care provider Clinical Summary of Care Provided Yes Assessment/Plan Assessment/Plan (1) Abscess of left foot excluding toes: CODE(S): L02.612 - Cutaneous abscess of left foot (2) Delayed wound healing: CODE(S): T14.8XXD - Other injury of unspecified body region, subsequent encounter (3) Chronic ulcer of left foot with fat layer exposed: CODE(S): L97.522 - Non-pressure chronic ulcer of other part of left foot with fat layer exposed (4) HTN (hypertension): CODE(S): I10 - Essential (primary) hypertension QUALIFIERS: Hypertension type: primary hypertension Qualified Code(s): I10 - Essential (primary) hypertension (5) Pressure ulcer of left foot, stage 3: CODE(S): L89.893 - Pressure ulcer of other site, stage 3 PLAN: Plan Debridement performed today in clinic as annotated above. At home wound-care instructions: Wash ulcer daily with antibacterial soap and water. Continue Aquacel Extra to ulcer and cover with gauze and roll gauze to secure daily. Keep dressing clean and dry. His work boot was modified on 07/03/23 to try to offload pressure. Off-loading: The patient was instructed to avoid pressure and friction on the affected areas. Reposition every 2 hours at minimum. Avoid prolonged standing and/or dangling of legs. When seated, feet should be elevated at chest level. Frequent ambulation is encouraged. Diet: Patient encouraged to increase protein intake while taking caution to avoid high carbohydrate and/or sugar intake. Labs/cultures/imaging: Wound culture positive 03/27/23 and is currently on Doxycycline. Wound culture showed Staph and Strep and he was treated with Keflex based on sensitivities and use topical Gentamicin for 3 weeks. Wound culture repeated today due to increased drainage and worsening of ulcer. Also ordered xray of his foot to evaluate for underlying osteomyelitis as he continues to have setbacks in healing and today there is some exposure of capsule of tendon. Follow-up: Return in 2 weeks for wound care follow up. Return sooner or report to the emergency room should symptoms worsen, or new symptoms arise. Note: [employer] speech recognition online user experience strategist software was used to create portions of this document. Sound-alike and misspelled words, as well as other online user experience strategist errors may be contained in the documentation.
[2023-08-14 10:13] VITALS: BP 127/69; PULSE 85; RESP 18; TEMP 36.3
--- NOTE | 2023-08-14 12:31 | PN.PCM_ITS ---
History of Present Illness Date of Service: 08/14/23 Chief Complaint: nonhealing wound left plantar foot History of Wound: Jose J is a 67 y/o gentleman that presents to the wound healing center for evaluation and treatment of a wound to his left plantar foot. He is a patient of Dr. Giordano. He has had a wound to this same area in February 2019 and was seen at [facility] [place] and treated there for 9 weeks with Aquacel and was placed in a wedge shoe to offload his foot. He was treated for this same wound for almost a year at this wound center and was healed in May 2020 and returned in July and was treated until September. He has undergone vascular testing at [facility] in 2018 but not since that time. 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 He and his did not want to do surgery. He has managed to do well over the last 2 years until the end of October when the area became painful again and began draining. He saw Dr. Giordano and was treated with doxycycline which helped and they had been applying Aquacel that they had from previous treatment but it has not improved. He was treated with a second course of doxycycline and then referred here for treatment. He is still working and walking on his foot in a steel toe boot 4 days a week for 10 hours. He had an offloading pad in his work boot previously but no longer has this in place. He denies claudication with walking. He has moderate to heavy drainage from the ulcer. He has not had any wound cultures taken. 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 He denies fever, chill, nausea, vomiting, redness or odor. Subjective Subjective Jose J returns today for follow up of an ulcer on the bottom of his left foot. He continues treatment with cephalexin. He continues to wear his modified work boot to alleviate pressure to the site of the ulcer of his left foot. He has been tolerating the Aquacel Extra to the ulcer. The area is improved but callus continues to form. He has had increased drainage. He denies fever, chills or odor. Objective Data Objective Data Vital Signs: Vital Signs Temp Pulse Resp BP 97.3 F L 85 18 127/69 H 08/14/23 10:13 08/14/23 10:13 08/14/23 10:13 08/14/23 10:13 Lab / Micro Data Micro: Microbiology 08/07/23 10:35 Wound - Left Foot Gram Stain - Final 08/07/23 10:35 Wound - Left Foot Wound Culture - Final No growth aerobically. 08/07/23 10:35 Wound - Left Foot Anaerobic Culture - Final No growth in 5 days. Physical Exam Const alert, oriented x3 and no apparent distress General Appearance: cooperative and comfortable HEENT normocephalic and head/scalp atraumatic Resp normal respiratory effort Effort and Inspection: able to speak in complete sentences Auscultation: rales, rhonchi and diminished lung sounds Cardio regular rate and regular rhythm Skin Wounds: wounds noted Wound Narrative: as in clinical panel Psych mental status grossly normal, thought process normal, cooperative and affect normal Debridement Note Debridement Note Wound debrided: left lateral plantar foot ulcer Laterality: Left Wound Grade/Stage: Stage 3 Type of Debridement: Excisional debridement Anesthesia Used: 4% Lidocaine Solution and 5% Lidocaine Gel Depth: Down to and including healthy tissue and in the subcutaneous layer Percentage of wound debrided: 100 Instrument Used: #15 blade and Forceps Tissue Removed: Yellow slough, devitalized tissue Severity: Fat Layer Exposed Amount of bleeding with debridement: Mild Bleeding Controlled with: Compression and gauze Patient tolerated procedure: Patient tolerated procedure well Post-Debridement Measurements and Additional Note: Post-Debridement Measurements/Treatment - Nurse 1 - General Ulcer Assessment Start: 08/07/23 10:09 Freq: Status: Active Protocol: KANIKA Activity Type Activity Date Activity User E-sign Co-sign Detail Recorded Client Recorded Date Recorded By Document 08/07/23 10:09 RB Desktop 08/07/23 10:12 RB Document 08/14/23 10:13 MT Desktop 08/14/23 10:17 MT 08/07/23 08/14/23 10:09 10:13 - Today's Visit Information Type of service Follow-up Visit Follow-up Visit (Physician/PICKLING OPERATOR (Physician/PICKLING OPERATOR ) ) Arrival Mode Ambulatory Ambulatory Transfer Assistance None None Patient Identification Verified (Name & Yes Yes ) Patient Requires Transmission-Based No No Precautions Vital Signs Temperature (97.8 F-99.1 F) 98 F 97.3 F L Temperature Source Temporal Temporal Pulse Rate (60-100) 71 85 Pulse Location Monitor Monitor Respiratory Rate (12-18) 18 18 Respiratory rate source Observation Observation Blood Pressure (90/60-120/80) 115/63 127/69 H Blood Pressure Mean (mm Hg) 80 88 Source Monitor Monitor Position Semi-Fowlers Semi-Fowlers Blood Pressure Location Left Arm Left Arm History Since Last Visit- (Skip if this is Patient's initial visit) Have you changed medications since your No No last visit? Any new allergies or adverse reactions No No Had a fall/change in ADL's that may No No increase risk of falls Signs or symptoms of abuse and/or No No neglect since last visit Have you been in the hospital since your No No last visit? Has dressing in place as prescribed Yes Yes Has compression in place as prescribed No No Has offloadiing in place as prescribed Yes Yes Experienced any changes in pain level or No No management Pain Scale: 0-10 Numeric Is Patient Pain Free? No Yes L foot -Description Aching -Intensity 6 -Duration (hours) Chronic -Pain Behavior Withdrawal from Touch -Pain Aggravating Factors Exercise/ Activity -Alleviating Factors/Interventions Medication -Effectiveness of Alleviating Factor/ Moderately Intervention effective WC - Nurse 1 - General Ulcer Measurement Start: 08/07/23 10:09 Freq: Status: Active Protocol: Activity Type Activity Date Activity User E-sign Co-sign Detail Recorded Client Recorded Date Recorded By Document 08/07/23 10:09 RB Desktop 08/07/23 10:12 RB Document 08/14/23 10:13 NM Desktop 08/14/23 10:17 NM 08/07/23 08/14/23 10:09 10:13 Wound Center Nurse 1 #3 L Lateral Plantar Foot -Combined with other wound No No -Current Size (cm) - Length 0.3 0.4 -Current Size (cm) - Width 0.4 2 -Current Size (cm) - Depth 0.3 0.1 -Total Square Cm 0.12 0.8 -Tunneling No No -Undermining/Tunneling Yes No -Undermining/Tunneling Starts (O'clock 12 ) -Undermining/Tunneling Ends (O'clock) 12 -Maximum Distance (cm) 0.4 -Circular Undermining No No -Exudate Amt Medium Medium -Exudate Type Serosanguineous Serosanguineous -Wound Margin Thickened Distinct, Outline Attached -Granulation Amt Medium (34-66%) Medium (34-66%) -Granulation Quality [place] -Slough/Fibrin Yes Yes -Necrosis Amt Medium (34-66%) Medium (34-66%) -Necrotic Tissue Type Adherent Slough -Structure Exposed N/A N/A -Texture (Flory-wound Skin Appearance) Assessed,Callus Assessed,Callus -Moisture (Flory-wound Skin Appearance) Assessed Assessed -Color (Flory-wound Skin Appearance) Assessed Assessed -Temperature (Flory-wound Skin No Abnormality No Abnormality Appearance) (Pt Warm) (Pt Warm) -Tenderness on Palpation (Flory-wound No Skin Appearance) -Ulcer Cleansing Wound Cleanser Wound Cleanser -Foul Odor after Cleansing No -Anesthetic Used 5% Lidocaine 5% Lidocaine Gel Gel,Cetacaine Lower Limb Edema Present Yes Left Calf (cm) 35 Left Ankle (cm) 24.2 WC - Nurse 2 - General Ulcer CM Notes Start: 08/07/23 10:09 Freq: Status: Active Protocol: Activity Type Activity Date Activity User E-sign Co-sign Detail Recorded Client Recorded Date Recorded By Document 08/07/23 10:16 GM Desktop 08/07/23 10:38 GM Document 08/14/23 10:23 GM Desktop 08/14/23 10:39 GM 08/07/23 08/14/23 10:16 10:23 Wound Center Nurse 2 #3 L Lateral Plantar Foot -Time 10:17 10:25 -Correct Patient Yes Yes -Correct Side, Site, Position Yes Yes -Correct Procedure Yes Yes -Procedure Performed Yes Yes -Type of Procedure Debridement Debridement -Clinical Debridement Subcutaneous Subcutaneous -Tissue Removed Subcutaneous Subcutaneous -Post Debridement (cm) - Length 1.0 0.9 -Post Debridement (cm) - Width 3.5 1.3 -Post Debridement (cm) - Depth 0.2 0.1 -Total Square (Post) (cm) 3.50 1.17 -Area of Debridement (cm) - Length 1.0 0.9 -Area of Debridement (cm) - Width 3.5 1.3 -Total Square (Area) (cm) 3.50 1.17 -Tunneling No No -Undermining/Tunneling No No -Circular Undermining No No -Wound/Ulcer Outcome Not Healed Not Healed -Ulcer Cleansing Rinsed/ Irrigated with Saline -Foul Odor after Cleansing No -Bleeding Controlled with Pressure -Treatment Response Procedure Tolerated Well -Debridement - Subq, 1st 20sq cm Yes Yes Pain Scale: 0-10 Numeric Is Patient Pain Free? Yes Yes - Nurse 3 - General Ulcer D/C NN Start: 08/07/23 10:09 Freq: Status: Active Protocol: Activity Type Activity Date Activity User E-sign Co-sign Detail Recorded Client Recorded Date Recorded By Document 08/07/23 10:50 KW Desktop 08/07/23 10:52 KW Document 08/14/23 10:53 RB Desktop 08/14/23 10:55 RB 08/07/23 08/14/23 10:50 10:53 Wound Care Center Nurse 3 #3 L Lateral Plantar Foot -Ulcer Cleansing Rinsed/ Irrigated with Saline -Primary Dressing Applied Aquacel Extra Aquacel Extra, Promogran -Primary Dressing Covered/Secured with Dry Gauze & Dry Gauze,Dry Roll Gauze, Gauze & Roll Secured with Gauze,Secured Tape with Tape -Aquacel Extra 1 1 -Promogran 2 Treatment Response Procedure Tolerated Well Pain Scale: 0-10 Numeric Is Patient Pain Free? Yes Yes Teaching: Wound Center Dressing Your Wound -Person Taught Patient,Family -Teaching Method Discussion, Demonstration -Response to teaching Verbalize understanding WC - Visit Discharge Discharge Condition Stable Stable Ambulatory Status Ambulatory Ambulatory Transportation Private Auto Private Auto Medication Reconcilliation completed & No No provided to patient/care provider Clinical Summary of Care Provided Yes Yes Assessment/Plan Assessment/Plan (1) Abscess of left foot excluding toes: CODE(S): L02.612 - Cutaneous abscess of left foot (2) Delayed wound healing: CODE(S): T14.8XXD - Other injury of unspecified body region, subsequent encounter (3) Chronic ulcer of left foot with fat layer exposed: CODE(S): L97.522 - Non-pressure chronic ulcer of other part of left foot with fat layer exposed (4) HTN (hypertension): CODE(S): I10 - Essential (primary) hypertension QUALIFIERS: Hypertension type: primary hypertension Qualified Code(s): I10 - Essential (primary) hypertension (5) Pressure ulcer of left foot, stage 3: CODE(S): L89.893 - Pressure ulcer of other site, stage 3 PLAN: Plan Debridement performed today in clinic as annotated above. At home wound-care instructions: Wash ulcer daily with antibacterial soap and water. Will try having Promogran to ulcer followed by Aquacel Extra to ulcer and cover with gauze and roll gauze to secure daily. Keep dressing clean and dry. His work boot was modified on 07/03/23 to try to offload pressure. Off-loading: The patient was instructed to avoid pressure and friction on the affected areas. Reposition every 2 hours at minimum. Avoid prolonged standing and/or dangling of legs. When seated, feet should be elevated at chest level. Frequent ambulation is encouraged. Diet: Patient encouraged to increase protein intake while taking caution to avoid high carbohydrate and/or sugar intake. Labs/cultures/imaging: Wound culture positive 03/27/23 and is currently on Doxycycline. Wound culture showed Staph and Strep and he was treated with Keflex based on sensitivities and use topical Gentamicin for 3 weeks. Wound culture was negative for infection. XR of foot was negative. MRI ordered and is scheduled for Thursday08/20/22. RX sent for Levaquin due to concern for possible pneumonia. Cough, rales on exam. Follow-up: Return in 1 week for wound care follow up. Return sooner or report to the emergency room should symptoms worsen, or new symptoms arise. Note: [employer] speech recognition pipeline dispatcher software was used to create portions of this document. Sound-alike and misspelled words, as well as other pipeline dispatcher errors may be contained in the documentation.
== END 2023-08-23 23:59 | disposition home or self-care (01) ==
LOC: WC 10:15
PROVIDERS: PCP Family Medicine; Referring Provider Family Medicine; Visit Provider Family Medicine
DX: L97.522 Non-pressure chronic ulcer of other part of left foot with fat layer exposed (principal); L89.893 Pressure ulcer of other site, stage 3; L02.612 Cutaneous abscess of left foot; I10 Essential (primary) hypertension; Z79.899 Other long term (current) drug therapy
CPT/HCPCS: 11042; 73630; 87070; 87075; 87205

== ENCOUNTER 2023-09-18 14:03 | Outpatient (RCR) | payer BC, SELFPAY ==
[2023-08-24 00:38] VITALS: BP 127/69; PULSE 85; RESP 18; TEMP 36.3
[2023-09-04 10:10] VITALS: BP 151/74; PULSE 75; TEMP 36.3
--- NOTE | 2023-09-04 13:01 | PN.PCM_ITS ---
History of Present Illness Date of Service: 09/04/23 Chief Complaint: nonhealing wound left plantar foot History of Wound: Jose J is a 67 y/o gentleman that presents to the wound healing center for evaluation and treatment of a wound to his left plantar foot. He is a patient of Dr. Giordano. He has had a wound to this same area in February 2019 and was seen at [facility] [place] and treated there for 9 weeks with Aquacel and was placed in a wedge shoe to offload his foot. He was treated for this same wound for almost a year at this wound center and was healed in May 2020 and returned in July and was treated until September. He has undergone vascular testing at [facility] in 2018 but not since that time. 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 He and his did not want to do surgery. He has managed to do well over the last 2 years until the end of October when the area became painful again and began draining. He saw Dr. Giordano and was treated with doxycycline which helped and they had been applying Aquacel that they had from previous treatment but it has not improved. He was treated with a second course of doxycycline and then referred here for treatment. He is still working and walking on his foot in a steel toe boot 4 days a week for 10 hours. He had an offloading pad in his work boot previously but no longer has this in place. He denies claudication with walking. He has moderate to heavy drainage from the ulcer. He has not had any wound cultures taken. 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 He denies fever, chill, nausea, vomiting, redness or odor. Subjective Subjective Jose J returns today for follow up of an ulcer on the bottom of his left foot. He completed treatment with cephalexin. He continues to wear his modified work boot to alleviate pressure to the site of the ulcer of his left foot. He has been tolerating the Aquacel Extra and promogran to the ulcer. The area is improved but callus continues to form. He has had increased drainage. He denies fever, chills or odor. Objective Data Objective Data Vital Signs: Vital Signs Temp Pulse Resp BP O2 Del Method 97.4 F L 75 18 151/74 H Room Air 09/04/23 10:10 09/04/23 10:10 08/24/23 00:38 09/04/23 10:10 09/04/23 10:10 Oxygen Delivery Method Room Air Physical Exam Const alert, oriented x3 and no apparent distress General Appearance: cooperative and comfortable HEENT normocephalic and head/scalp atraumatic Resp normal respiratory effort Effort and Inspection: able to speak in complete sentences Auscultation: rales, rhonchi and diminished lung sounds Cardio regular rate and regular rhythm Skin Wounds: wounds noted Wound Narrative: as in clinical panel Psych mental status grossly normal, thought process normal, cooperative and affect normal Debridement Note Debridement Note Wound debrided: left lateral plantar foot ulcer Laterality: Left Wound Grade/Stage: Stage 3 Type of Debridement: Excisional debridement Anesthesia Used: 4% Lidocaine Solution and 5% Lidocaine Gel Depth: Down to and including healthy tissue and in the subcutaneous layer Percentage of wound debrided: 100 Instrument Used: #15 blade and Forceps Tissue Removed: Yellow slough, devitalized tissue Severity: Fat Layer Exposed Amount of bleeding with debridement: Mild Bleeding Controlled with: Compression and gauze Patient tolerated procedure: Patient tolerated procedure well Post-Debridement Measurements and Additional Note: Post-Debridement Measurements/Treatment - Nurse 1 - General Ulcer Assessment Start: 09/04/23 10:10 Freq: Status: Active Protocol: QUOC.AMADA Activity Type Activity Date Activity User E-sign Co-sign Detail Recorded Client Recorded Date Recorded By Document 09/04/23 10:10 WV Desktop 09/04/23 10:15 WV 09/04/23 10:10 - Today's Visit Information Type of service Follow-up Visit (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/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 ) Arrival Mode Ambulatory Accompanied by self Patient Identification Verified (Name & No ) Vital Signs Temperature (97.8 F-99.1 F) 97.4 F L Temperature Source Temporal Pulse Rate (60-100) 75 Pulse Location Monitor Respiratory rate source Observation Oxygen Delivery Method Room Air Blood Pressure (90/60-120/80) 151/74 H Blood Pressure Mean (mm Hg) 99 Source Monitor Position Sitting Blood Pressure Location Right Arm History Since Last Visit- (Skip if this is Patient's initial visit) Has dressing in place as prescribed Yes Has compression in place as prescribed N/A Has offloadiing in place as prescribed N/A Experienced any changes in pain level or No management Left Footwear Regular Shoe Right Footwear Regular Shoe Pain Scale: 0-10 Numeric Is Patient Pain Free? Yes - Nurse 1 - General Ulcer Measurement Start: 09/04/23 10:10 Freq: Status: Active Protocol: Activity Type Activity Date Activity User E-sign Co-sign Detail Recorded Client Recorded Date Recorded By Document 09/04/23 10:10 WV [employer] 09/04/23 10:15 WV 09/04/23 10:10 Wound Center Nurse 1 #3 L Lateral Plantar Foot -Combined with other wound No -Current Size (cm) - Length 0.4 -Current Size (cm) - Width 1.9 -Current Size (cm) - Depth 0.2 -Total Square Cm 0.76 -Photo Taken No -Tunneling No -Undermining/Tunneling Yes -Undermining/Tunneling Starts (O'clock 12 ) -Undermining/Tunneling Ends (O'clock) 12 -Maximum Distance (cm) 0.5 -Circular Undermining Yes -Exudate Amt Medium -Exudate Type Serosanguineous -Wound Margin Thickened -Granulation Amt Medium (34-66%) -Granulation Quality [place] -Slough/Fibrin Yes -Necrosis Amt Medium (34-66%) -Necrotic Tissue Type Adherent Slough -Structure Exposed N/A -Texture (Flory-wound Skin Appearance) Assessed,Callus -Moisture (Flory-wound Skin Appearance) Assessed -Color (Flory-wound Skin Appearance) Assessed -Temperature (Flory-wound Skin No Abnormality Appearance) (Pt Warm) -Tenderness on Palpation (Flory-wound No Skin Appearance) -Ulcer Cleansing Wound Cleanser -Foul Odor after Cleansing No -Anesthetic Used 5% Lidocaine Gel - Nurse 2 - General Ulcer CM Notes Start: 09/04/23 10:10 Freq: Status: Active Protocol: Activity Type Activity Date Activity User E-sign Co-sign Detail Recorded Client Recorded Date Recorded By Document 09/04/23 10:39 Desktop 09/04/23 10:57 09/04/23 10:39 Wound Center Nurse 2 -Time 10:39 -Correct Patient Yes -Correct Side, Site, Position Yes -Correct Procedure Yes -Procedure Performed Yes -Type of Procedure Debridement -Clinical Debridement Subcutaneous -Tissue Removed Subcutaneous -Post Debridement (cm) - Length 0.8 -Post Debridement (cm) - Width 1.7 -Post Debridement (cm) - Depth 0.1 -Total Square (Post) (cm) 1.36 -Area of Debridement (cm) - Length 0.8 -Area of Debridement (cm) - Width 1.7 -Total Square (Area) (cm) 1.36 -Tunneling No -Undermining/Tunneling No -Circular Undermining No -Wound/Ulcer Outcome Not Healed -Ulcer Cleansing Rinsed/ Irrigated with Saline -Foul Odor after Cleansing No -Bleeding Controlled with Pressure -Treatment Response Procedure Tolerated Well -Debridement - Subq, 1st 20sq cm Yes Pain Scale: 0-10 Numeric Is Patient Pain Free? Yes Assessment/Plan Assessment/Plan (1) Abscess of left foot excluding toes: CODE(S): L02.612 - Cutaneous abscess of left foot (2) Delayed wound healing: CODE(S): T14.8XXD - Other injury of unspecified body region, subsequent encounter (3) Chronic ulcer of left foot with fat layer exposed: CODE(S): L97.522 - Non-pressure chronic ulcer of other part of left foot with fat layer exposed (4) HTN (hypertension): CODE(S): I10 - Essential (primary) hypertension QUALIFIERS: Hypertension type: primary hypertension Qualified Code(s): I10 - Essential (primary) hypertension (5) Pressure ulcer of left foot, stage 3: CODE(S): L89.893 - Pressure ulcer of other site, stage 3 PLAN: Plan Debridement performed today in clinic as annotated above. At home wound-care instructions: Wash ulcer daily with antibacterial soap and water. Will continueto use Promogran to ulcer followed by Aquacel Extra to ulcer and cover with gauze and roll gauze to secure daily. Keep dressing clean and dry. His work boot was modified on 07/03/23 to try to offload pressure. Off-loading: The patient was instructed to avoid pressure and friction on the affected areas. Reposition every 2 hours at minimum. Avoid prolonged standing and/or dangling of legs. When seated, feet should be elevated at chest level. Frequent ambulation is encouraged. Diet: Patient encouraged to increase protein intake while taking caution to a void high carbohydrate and/or sugar intake. Labs/cultures/imaging: Wound culture positive 03/27/23 and is currently on Doxycycline. Wound culture showed Staph and Strep and he was treated with Keflex based on sensitivities and use topical Gentamicin for 3 weeks. Wound culture was negative for infection. XR of foot was negative. MRI ordered and was scheduled for Thursday08/20/22 but he was sick and need to cancel. He has stress test scheduled for next week and then will reschedule MRI. RX sent for Levaquin due to concern for possible pneumonia. Cough, rales on exam. Follow-up: Return in 2 weeks for wound care follow up. Return sooner or report to the emergency room should symptoms worsen, or new symptoms arise. Note: [employer] speech recognition final operations technician software was used to create port ions of this document. Sound-alike and misspelled words, as well as other final operations technician errors may be contained in the documentation.
[2023-09-18 10:23] VITALS: BP 127/57; PULSE 76; RESP 18; TEMP 36.3
--- NOTE | 2023-09-18 13:58 | PCM.WC.PN ---
History of Present Illness Date of Service: 09/18/23 Chief Complaint: nonhealing wound left plantar foot History of Wound: Jose J is a 67 y/o gentleman that presents to the wound healing center for evaluation and treatment of a wound to his left plantar foot. He is a patient of Dr. Giordano. He has had a wound to this same area in February 2019 and was seen at [facility] [place] and treated there for 9 weeks with Aquacel and was placed in a wedge shoe to offload his foot. He was treated for this same wound for almost a year at this wound center and was healed in May 2020 and returned in July and was treated until September. He has undergone vascular testing at [facility] in 2018 but not since that time. 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 He and his did not want to do surgery. He has managed to do well over the last 2 years until the end of October when the area became painful again and began draining. He saw Dr. Giordano and was treated with doxycycline which helped and they had been applying Aquacel that they had from previous treatment but it has not improved. He was treated with a second course of doxycycline and then referred here for treatment. He is still working and walking on his foot in a steel toe boot 4 days a week for 10 hours. He had an offloading pad in his work boot previously but no longer has this in place. He denies claudication with walking. He has moderate to heavy drainage from the ulcer. He has not had any wound cultures taken. 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 He denies fever, chill, nausea, vomiting, redness or odor. Subjective Subjective Jose J returns today for follow up of an ulcer on the bottom of his left foot. He had worsening of his ulcer and swelling and erythema of his foot and was restarted on doxycycline and cephalexin last week. He underwent stress test and will likely need a stent and heart catheterization. He continues to wear his modified work boot to alleviate pressure to the site of the ulcer of his left foot. He has been tolerating the Aquacel Extra to the ulcer. The area is improved but callus continues to form. He has had increased drainage. He denies fever, chills or odor. Objective Data Objective Data Vital Signs: Vital Signs Temp Pulse Resp BP O2 Del Method 97.4 F L 76 18 127/57 H Room Air 09/18/23 10:23 09/18/23 10:09/18/23 10:09/18/23 10:23 09/18/23 10:23 Oxygen Delivery Method Room Air Physical Exam Const alert, oriented x3 and no apparent distress General Appearance: cooperative and comfortable HEENT normocephalic and head/scalp atraumatic Resp normal respiratory effort Effort and Inspection: able to speak in complete sentences Auscultation: rales, rhonchi and diminished lung sounds Cardio regular rate and regular rhythm Skin Wounds: wounds noted Wound Narrative: as in clinical panel Psych mental status grossly normal, thought process normal, cooperative and affect normal Debridement Note Debridement Note Wound debrided: left lateral plantar foot ulcer Laterality: Left Wound Grade/Stage: Stage 3 Type of Debridement: Excisional debridement Anesthesia Used: 4% Lidocaine Solution and 5% Lidocaine Gel Depth: Down to and including healthy tissue and in the subcutaneous layer Percentage of wound debrided: 100 Instrument Used: #15 blade and Forceps Tissue Removed: Yellow slough, devitalized tissue Severity: Fat Layer Exposed Amount of bleeding with debridement: Mild Bleeding Controlled with: Compression and gauze Patient tolerated procedure: Patient tolerated procedure well Post-Debridement Measurements and Additional Note: Post-Debridement Measurements/Treatment - Nurse 1 - General Ulcer Assessment Start: 09/04/23 10:10 Freq: Status: Active Protocol: QUOC.AMADA Activity Type Activity Date Activity User E-sign Co-sign Detail Recorded Client Recorded Date Recorded By Document 09/04/23 10:10 IA Desktop 09/04/23 10:15 MT Document 09/18/23 10:23 KW Desktop 09/18/23 10:31 KW 09/04/23 09/18/23 10:10 10:23 - Today's Visit Information Type of service Follow-up Visit Follow-up Visit (Physician/FOOD SERVICE SALES REPRESENTATIVES (Physician/FOOD SERVICE SALES REPRESENTATIVES ) ) Arrival Mode Ambulatory Ambulatory Accompanied by self Patient Identification Verified (Name & No Yes ) Vital Signs Temperature (97.8 F-99.1 F) 97.4 F L 97.4 F L Temperature Source Temporal Temporal Pulse Rate (60-100) 75 76 Pulse Location Monitor Monitor Respiratory Rate (12-18) 18 Respiratory rate source Observation Observation Oxygen Delivery Method Room Air Room Air Blood Pressure (90/60-120/80) 151/74 H 127/57 H Blood Pressure Mean (mm Hg) 99 80 Source Monitor Monitor Position Sitting Sitting Blood Pressure Location Right Arm Left Arm History Since Last Visit- (Skip if this is Patient's initial visit) Have you changed medications since your No last visit? Any new allergies or adverse reactions No Had a fall/change in ADL's that may No increase risk of falls Signs or symptoms of abuse and/or No neglect since last visit Have you been in the hospital since your No last visit? Has dressing in place as prescribed Yes Yes Has compression in place as prescribed N/A Yes Has offloadiing in place as prescribed N/A N/A Experienced any changes in pain level or No No management Left Footwear Regular Shoe Regular Shoe Right Footwear Regular Shoe Regular Shoe Pain Scale: 0-10 Numeric Is Patient Pain Free? Yes Yes WC - Nurse 1 - General Ulcer Measurement Start: 09/04/23 10:10 Freq: Status: Active Protocol: Activity Type Activity Date Activity User E-sign Co-sign Detail Recorded Client Recorded Date Recorded By Document 09/04/23 10:10 MT Desktop 09/04/23 10:15 MT Document 09/18/23 10:23 KW Desktop 09/18/23 10:31 KW 09/04/23 09/18/23 10:10 10:23 Wound Center Nurse 1 #3 L Lateral Plantar Foot -Combined with other wound No -Current Size (cm) - Length 0.4 2.5 -Current Size (cm) - Width 1.9 0.4 -Current Size (cm) - Depth 0.2 0.2 -Total Square Cm 0.76 1.00 -Photo Taken No -Tunneling No -Undermining/Tunneling Yes -Undermining/Tunneling Starts (O'clock 12 ) -Undermining/Tunneling Ends (O'clock) 12 -Maximum Distance (cm) 0.5 -Circular Undermining Yes -Exudate Amt Medium Small -Exudate Type Serosanguineous Serosanguineous -Wound Margin Thickened Distinct, Outline Attached -Granulation Amt Medium (34-66%) Small (1-33%) -Granulation Quality [place] -Slough/Fibrin Yes -Necrosis Amt Medium (34-66%) Large (67-100%) -Necrotic Tissue Type Adherent Slough Adherent Slough -Structure Exposed N/A -Texture (Flory-wound Skin Appearance) Assessed,Callus Assessed,Callus ,Localized Edema,Rash -Moisture (Flory-wound Skin Appearance) Assessed Assessed -Color (Flory-wound Skin Appearance) Assessed Assessed -Temperature (Flory-wound Skin No Abnormality No Abnormality Appearance) (Pt Warm) (Pt Warm) -Tenderness on Palpation (Flory-wound No No Skin Appearance) -Ulcer Cleansing Wound Cleanser Rinsed/ Irrigated with Saline -Foul Odor after Cleansing No No -Anesthetic Used 5% Lidocaine 5% Lidocaine Gel Gel WC - Nurse 2 - General Ulcer CM Notes Start: 09/04/23 10:10 Freq: Status: Active Protocol: Activity Type Activity Date Activity User E-sign Co-sign Detail Recorded Client Recorded Date Recorded By Document 09/04/23 10:39 GM Desktop 09/04/23 10:57 GM Document 09/18/23 11:24 GM Desktop 09/18/23 11:48 GM 09/04/23 09/18/23 10:39 11:24 Wound Center Nurse 2 #3 L Lateral Plantar Foot -Time 10:39 11:25 -Correct Patient Yes Yes -Correct Side, Site, Position Yes Yes -Correct Procedure Yes Yes -Procedure Performed Yes Yes -Type of Procedure Debridement Debridement -Clinical Debridement Subcutaneous Subcutaneous -Tissue Removed Subcutaneous Subcutaneous -Post Debridement (cm) - Length 0.8 0.5 -Post Debridement (cm) - Width 1.7 1.3 -Post Debridement (cm) - Depth 0.1 0.1 -Total Square (Post) (cm) 1.36 0.65 -Area of Debridement (cm) - Length 0.8 0.5 -Area of Debridement (cm) - Width 1.7 1.3 -Total Square (Area) (cm) 1.36 0.65 -Tunneling No No -Undermining/Tunneling No No -Circular Undermining No No -Wound/Ulcer Outcome Not Healed Not Healed -Ulcer Cleansing Rinsed/ Rinsed/ Irrigated with Irrigated with Saline Saline -Foul Odor after Cleansing No No -Bleeding Controlled with Pressure -Treatment Response Procedure Tolerated Well -Debridement - Subq, 1st 20sq cm Yes Yes Pain Scale: 0-10 Numeric Is Patient Pain Free? Yes Yes - Nurse 3 - General Ulcer D/C NN Start: 09/04/23 10:10 Freq: Status: Active Protocol: Activity Type Activity Date Activity User E-sign Co-sign Detail Recorded Client Recorded Date Recorded By Document 09/18/23 11:59 KW Desktop 09/18/23 12:00 KW 09/18/23 11:59 Wound Care Center Nurse 3 #3 L Lateral Plantar Foot -Primary Dressing Applied Aquacel Extra -Primary Dressing Covered/Secured with Dry Gauze & Roll Gauze, Secured with Tape -Aquacel Extra 1 Pain Scale: 0-10 Numeric Is Patient Pain Free? Yes WC - Visit Discharge Discharge Condition Stable Ambulatory Status Ambulatory Transportation Private Auto Medication Reconcilliation completed & No provided to patient/care provider Clinical Summary of Care Provided Yes Assessment/Plan Assessment/Plan (1) Abscess of left foot excluding toes: CODE(S): L02.612 - Cutaneous abscess of left foot (2) Delayed wound healing: CODE(S): T14.8XXD - Other injury of unspecified body region, subsequent encounter (3) Chronic ulcer of left foot with fat layer exposed: CODE(S): L97.522 - Non-pressure chronic ulcer of other part of left foot with fat layer exposed (4) HTN (hypertension): CODE(S): I10 - Essential (primary) hypertension QUALIFIERS: Hypertension type: primary hypertension Qualified Code(s): I10 - Essential (primary) hypertension (5) Pressure ulcer of left foot, stage 3: CODE(S): L89.893 - Pressure ulcer of other site, stage 3 PLAN: Plan Debridement performed today in clinic as annotated above. At home wound-care instructions: Wash ulcer daily with antibacterial soap and water. Will continue Aquacel Extra to ulcer and cover with gauze and roll gauze to secure daily. Keep dressing clean and dry. His work boot was modified on 07/03/23 to try to offload pressure. Discussed possibly using TCC for offloading in near future. Off-loading: The patient was instructed to avoid pressure and friction on the affected areas. Reposition every 2 hours at minimum. Avoid prolonged standing and/or dangling of legs. When seated, feet should be elevated at chest level. Frequent ambulation is encouraged. Diet: Patient encouraged to increase protein intake while taking caution to avoid high carbohydrate and/or sugar intake. Labs/cultures/imaging: Wound culture positive 03/27/23 and is currently on Doxycycline. Wound culture showed Staph and Strep and he was treated with Keflex based on sensitivities and use topical Gentamicin for 3 weeks. Wound culture done 09/18/23. XR of foot was negative. MRI ordered and was scheduled for Thursday08/20/22 but he was sick and need to cancel. We will reschedule MRI. Arterial testing will be ordered due to the nonhealing ulcer and his CAD. Follow-up: Return in 1 week for wound care follow up. Return sooner or report to the emergency room should symptoms worsen, or new symptoms arise. Note: [employer] speech recognition breakfast server software was used to create portions of this document. Sound-alike and misspelled words, as well as other breakfast server errors may be contained in the documentation.
== END 2023-09-22 23:59 | disposition home or self-care (01) ==
LOC: WC 14:03
PROVIDERS: PCP Family Medicine; Referring Provider Family Medicine; Visit Provider Family Medicine
DX: L89.893 Pressure ulcer of other site, stage 3 (principal); L02.612 Cutaneous abscess of left foot; I10 Essential (primary) hypertension; Z79.899 Other long term (current) drug therapy
CPT/HCPCS: 11042; 87070; 87075; 87077; 87186; 87205

== ENCOUNTER → 2023-10-02 | Outpatient (CLI) | payer BC, SELFPAY ==
--- NOTE | 2023-10-02 10:23 | MRI_ITS ---
STUDY: MRI LEFT FOREFOOT WITH AND WITHOUT CONTRAST REASON FOR EXAM: Male, 68 years old. CHRONIC ULCER, TENDON EXPOSED, HEAD OF 5TH METATARSAL, ON/OFF X 4 YEARS TECHNIQUE: Standardized fat and water weighted pulse sequences were obtained in all 3 orthogonal planes, post contrast administration. IV Clariscan 20 cc was administered for the contrast portion of the examination. COMPARISON: None. FINDINGS: Normal bone marrow of the metatarsals, phalanges and visualized distal tarsal row, without fracture, periostitis, erosions or reactive bone edema. Normal sesamoids without sesamoiditis, fracture or avascular necrosis. Normal joint spaces, without effusions. There are no extraarticular fluid collections. Normal visualized Lisfranc joints and normal Lisfranc ligament. Normal intermetatarsal spaces without intermetatarsal (Turcios) neuroma or bursitis. Normal visualized extensor digitorum longus, extensor hallucis longus, flexor digitorum brevis and flexor hallucis longus tendons. Normal visualized plantar fascia without fasciitis, fibromatosis or tear. There is atrophy and fatty infiltration of the intrinsic muscles of the foot. There is mild subcutaneous soft tissue edema along the dorsum of the forefoot and around the lateral aspect of the fifth MTP joint. There is no discrete fluid collection or drainable abscess. There is no abnormal enhancing lesion. MRI/Lower Ext No Joint W/WO Cont IMPRESSION: Mild subcutaneous soft tissue edema along the dorsum of the forefoot and around the lateral aspect of the fifth MTP joint. No discrete fluid collection or drainable abscess. Atrophy and fatty infiltration of the intrinsic muscles of the foot. No abnormal enhancing lesion. Electronically Signed: Jose J Pina MD at 13:41 EDT ,
[2023-10-02 11:37] LABS: EGFR FINGERSTICK > 60.0000 mL/min (>60)
== END | disposition home or self-care (01) ==
PROVIDERS: PCP Family Medicine; Referring Provider Family Medicine; Visit Provider Family Medicine
DX: L98.499 Non-pressure chronic ulcer of skin of other sites with unspecified severity (principal); M86.9 Osteomyelitis, unspecified
CPT/HCPCS: 73720; A9575

== ENCOUNTER 2023-10-09 08:30 | Outpatient (RCR) | payer BC, SELFPAY ==
[2023-09-23 00:23] VITALS: BP 127/57; PULSE 76; RESP 18; TEMP 36.3
[2023-09-25 10:21] VITALS: BP 118/64; PULSE 79; RESP 18; TEMP 36.7
--- NOTE | 2023-09-25 12:12 | PN.PCM_ITS ---
History of Present Illness Date of Service: 09/25/23 Chief Complaint: nonhealing wound left plantar foot History of Wound: Jose J is a 67 y/o gentleman that presents to the wound healing center for evaluation and treatment of a wound to his left plantar foot. He is a patient of Dr. Giordano. He has had a wound to this same area in February 2019 and was seen at [facility] and treated there for 9 weeks with Aquacel and was placed in a wedge shoe to offload his foot. He was treated for this same wound for almost a year at this wound center and was healed in May 2020 and returned in July and was treated until September. He has undergone vascular testing at [facility] in 2018 but not since that time. 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 He and his did not want to do surgery. He has managed to do well over the last 2 years until the end of October when the area became painful again and began draining. He saw Dr. Giordano and was treated with doxycycline which helped and they had been applying Aquacel that they had from previous treatment but it has not improved. He was treated with a second course of doxycycline and then referred here for treatment. He is still working and walking on his foot in a steel toe boot 4 days a week for 10 hours. He had an offloading pad in his work boot previously but no longer has this in place. He denies claudication with walking. He has moderate to heavy drainage from the ulcer. He has not had any wound cultures taken. 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 He denies fever, chill, nausea, vomiting, redness or odor. Subjective Subjective Jose J returns today for follow up of an ulcer on the bottom of his left foot. His ulcer and swelling of his foot is improved. He underwent stress test 09/11/23 and will likely need a stent and heart catheterization. He continues to wear his modified work boot to alleviate pressure to the site of the ulcer of his left foot. He has been tolerating the Aquacel Extra to the ulcer. The area is improved but callus continues to form. He has had increased drainage. He denies fever, chills or odor. Objective Data Objective Data Vital Signs: Vital Signs Temp Pulse Resp BP O2 Del Method 98.0 F 79 18 118/64 Room Air 09/25/23 10:21 09/25/23 10:21 09/25/23 10:21 09/25/23 10:21 09/25/23 10:21 Oxygen Delivery Method Room Air Physical Exam Const alert, oriented x3 and no apparent distress General Appearance: cooperative and comfortable HEENT normocephalic and head/scalp atraumatic Resp normal respiratory effort Effort and Inspection: able to speak in complete sentences Auscultation: rales, rhonchi and diminished lung sounds Cardio regular rate and regular rhythm Skin Wounds: wounds noted Wound Narrative: as in clinical panel Psych mental status grossly normal, thought process normal, cooperative and affect normal Debridement Note Debridement Note Wound debrided: left lateral plantar foot ulcer Laterality: Left Wound Grade/Stage: Stage 3 Type of Debridement: Excisional debridement Anesthesia Used: 4% Lidocaine Solution and 5% Lidocaine Gel Depth: Down to and including healthy tissue and in the subcutaneous layer Percentage of wound debrided: 100 Instrument Used: #15 blade and Forceps Tissue Removed: Yellow slough, devitalized tissue Severity: Fat Layer Exposed Amount of bleeding with debridement: Mild Bleeding Controlled with: Compression and gauze Patient tolerated procedure: Patient tolerated procedure well Post-Debridement Measurements and Additional Note: Post-Debridement Measurements/Treatment - Nurse 1 - General Ulcer Assessment Start: 09/25/23 10:21 Freq: Status: Active Protocol: [email or web address] Activity Type Activity Date Activity User E-sign Co-sign Detail Recorded Client Recorded Date Recorded By Document 09/25/23 10:21 Desktop 09/25/23 10:22 09/25/23 10:21 - Today's Visit Information Type of service 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 ) Arrival Mode Ambulatory Accompanied by Patient Identification Verified (Name & Yes ) Height and Weight Weight Measurement Method Estimated by Patient Vital Signs Temperature (97.8 F-99.1 F) 98.0 F Temperature Source Temporal Pulse Rate (60-100) 79 Pulse Location Monitor Respiratory Rate (12-18) 18 Respiratory rate source Observation Oxygen Delivery Method Room Air Blood Pressure (90/60-120/80) 118/64 Blood Pressure Mean (mm Hg) 82 Source Monitor Position Semi-Fowlers Blood Pressure Location Left Arm History Since Last Visit- (Skip if this is Patient's initial visit) Have you changed medications since your No last visit? Any new allergies or adverse reactions No Had a fall/change in ADL's that may No increase risk of falls Signs or symptoms of abuse and/or No neglect since last visit Have you been in the hospital since your No last visit? Has dressing in place as prescribed Yes Has compression in place as prescribed N/A Has offloadiing in place as prescribed N/A Experienced any changes in pain level or No management Left Footwear Regular Shoe Right Footwear Regular Shoe Pain Scale: 0-10 Numeric Is Patient Pain Free? Yes WC - Nurse 1 - General Ulcer Measurement Start: 09/25/23 10:21 Freq: Status: Active Protocol: Activity Type Activity Date Activity User E-sign Co-sign Detail Recorded Client Recorded Date Recorded By Document 09/25/23 10:21 RB Desktop 09/25/23 10:22 RB 09/25/23 10:21 Wound Center Nurse 1 #3 L Lateral Plantar Foot -Current Size (cm) - Length 0.5 -Current Size (cm) - Width 1 -Current Size (cm) - Depth 0.1 -Total Square Cm 0.5 -Exudate Amt Small -Exudate Type Serosanguineous -Wound Margin Distinct, Outline Attached -Granulation Amt Large (67-100%) -Granulation Quality Portis -Necrosis Amt Small (1-33%) -Necrotic Tissue Type Adherent Slough -Texture (Flory-wound Skin Appearance) Assessed,Callus -Moisture (Flory-wound Skin Appearance) Assessed -Color (Flory-wound Skin Appearance) Assessed -Temperature (Flory-wound Skin No Abnormality Appearance) (Pt Warm) -Tenderness on Palpation (Flory-wound No Skin Appearance) -Ulcer Cleansing Rinsed/ Irrigated with Saline -Foul Odor after Cleansing No -Anesthetic Used 5% Lidocaine Gel WC - Nurse 2 - General Ulcer CM Notes Start: 09/25/23 10:21 Freq: Status: Active Protocol: Activity Type Activity Date Activity User E-sign Co-sign Detail Recorded Client Recorded Date Recorded By Document 09/25/23 10:48 GM Desktop 09/25/23 10:49 GM Edit Result 09/25/23 10:48 GM (1) Desktop 09/25/23 11:10 GM (1) #3 L Lateral Plantar Foot - Post Debridement (cm) - Length => 0.5 - Post Debridement (cm) - Width => 1.1 - Post Debridement (cm) - Depth => 0.1 - Total Square (Post) (cm) => 0.55 - Area of Debridement (cm) - Length => 0.5 - Area of Debridement (cm) - Width => 1.1 - Total Square (Area) (cm) => 0.55 09/25/23 10:48 Wound Center Nurse 2 -Time 10:48 -Correct Patient Yes -Correct Side, Site, Position Yes -Correct Procedure Yes -Procedure Performed Yes -Type of Procedure Debridement -Clinical Debridement Subcutaneous -Tissue Removed Subcutaneous -Post Debridement (cm) - Length 0.5 -Post Debridement (cm) - Width 1.1 -Post Debridement (cm) - Depth 0.1 -Total Square (Post) (cm) 0.55 -Area of Debridement (cm) - Length 0.5 -Area of Debridement (cm) - Width 1.1 -Total Square (Area) (cm) 0.55 -Tunneling No -Undermining/Tunneling No -Circular Undermining No -Wound/Ulcer Outcome Not Healed -Ulcer Cleansing Rinsed/ Irrigated with Saline -Foul Odor after Cleansing No -Bioengineered Tissue No -Bleeding Controlled with Pressure -Treatment Response Procedure Tolerated Well -Debridement - Subq, 1st 20sq cm Yes Pain Scale: 0-10 Numeric Is Patient Pain Free? Yes - Nurse 3 - General Ulcer D/C NN Start: 09/25/23 10:21 Freq: Status: Active Protocol: Activity Type Activity Date Activity User E-sign Co-sign Detail Recorded Client Recorded Date Recorded By Document 09/25/23 11:28 Desktop 09/25/23 11:29 09/25/23 11:28 Wound Care Center Nurse 3 #3 L Lateral Plantar Foot -Ulcer Cleansing Rinsed/ Irrigated with Saline -Primary Dressing Applied Aquacel Extra -Primary Dressing Covered/Secured with Dry Gauze,Dry Gauze & Roll Gauze,Secured with Tape -Aquacel Extra 1 Treatment Response Procedure Tolerated Well Pain Scale: 0-10 Numeric Is Patient Pain Free? Yes - Visit Discharge Discharge Condition Stable Ambulatory Status Ambulatory Transportation Private Auto Medication Reconcilliation completed & No provided to patient/care provider Clinical Summary of Care Provided Yes Assessment/Plan Assessment/Plan (1) Abscess of left foot excluding toes: CODE(S): L02.612 - Cutaneous abscess of left foot (2) Delayed wound healing: CODE(S): T14.8XXD - Other injury of unspecified body region, subsequent encounter (3) Chronic ulcer of left foot with fat layer exposed: CODE(S): L97.522 - Non-pressure chronic ulcer of other part of left foot with fat layer exposed (4) HTN (hypertension): CODE(S): I10 - Essential (primary) hypertension QUALIFIERS: Hypertension type: primary hypertension Qualified Code(s): I10 - Essential (primary) hypertension (5) Pressure ulcer of left foot, stage 3: CODE(S): L89.893 - Pressure ulcer of other site, stage 3 PLAN: Plan Debridement performed today in clinic as annotated above. At home wound-care instructions: Wash ulcer daily with antibacterial soap and water. Will continue Aquacel Extra to ulcer and cover with gauze and roll gauze to secure daily. Keep dressing clean and dry. His work boot was modified on 07/03/23 to try to offload pressure. Discussed possibly using TCC for offloading in near future. Off-loading: The patient was instructed to avoid pressure and friction on the affected areas. Reposition every 2 hours at minimum. Avoid prolonged standing and/or dangling of legs. When seated, feet should be elevated at chest level. Frequent ambulation is encouraged. Diet: Patient encouraged to increase protein intake while taking caution to avoid high carbohydrate and/or sugar intake. Labs/cultures/imaging: Wound culture positive 03/27/23 and is currently on Doxycycline. Wound culture showed Staph and Strep and he was treated with Keflex based on sensitivities and use topical Gentamicin for 3 weeks. Wound culture done 09/18/23. XR of foot was negative. MRI ordered and is scheduled for Thursday10/02/23 and arterial testing with [facility] will follow. Follow-up: Return in 1 week for wound care follow up. Return sooner or report to the emergency room should symptoms worsen, or new symptoms arise. Note: [email or web address] speech recognition wholesale diamond broker software was used to create portions of this document. Sound-alike and misspelled words, as well as other wholesale diamond broker errors may be contained in the documentation.
[2023-10-02 09:18] VITALS: BP 136/67; PULSE 69; RESP 20; TEMP 36.9
--- NOTE | 2023-10-02 12:34 | ART_ITS ---
Reason For Study: LLE Wound Procedure A bilateral lower extremity continuous wave Doppler with analog waveform analysis,segmental pressures,and ankle brachial indexes without exercise. Left Segmental Pressures Left brachial= 137mmHg. Left posterior tibial artery = 172mmHg. Left dorsalis pedis artery = 148mmHg. Left digit = 107 mmHg. The left posterior tibial artery waveforms are triphasic. The left dorsalis pedis waveforms are triphasic. Right Segmental Pressures Right brachial= 138mmHg. Right posterior tibial artery = 170mmHg. Right dorsalis pedis artery = 148mmHg. Right digit = 88 mmHg. The right posterior tibial artery waveforms are triphasic. The right dorsalis pedis waveforms are triphasic. Indices The right ankle brachial index by the posterior tibial artery is 1.23. The right ankle brachial index by the dorsalis pedis is 1.07. The right digital-brachial index is 0.64. The left ankle brachial index by the posterior tibial artery is 1.25. The left ankle brachial index by the dorsalis pedis is 1.07. The left digital-brachial index is 0.78. VL/Lower Ext Art Exam w/o Exercis Interpretation Summary Triphasic Doppler waveforms are noted at ankle level bilaterally. Pulse-volume recordings appear somewhat diminished at digital level bilaterally, but satisfactory at all other levels bilaterally. Resting ankle-brachial indices are normal bilaterally. The right digital-brachi al index is mildly diminished. The left digital-brachial index is normal. Arterial flow appears normal at ankle level bilaterally, and at digital level o n the left. There is evidence of mild arterial occlusive disease at digital level on the right. Ordering Physician: Annika Plummer Referring Physician: Keegan Giordano Performed By: Eric Coleman RVT
--- NOTE | 2023-10-02 12:46 | PN.PCM_ITS ---
History of Present Illness Date of Service: 10/02/23 Chief Complaint: nonhealing wound left plantar foot History of Wound: Jose J is a 67 y/o gentleman that presents to the wound healing center for evaluation and treatment of a wound to his left plantar foot. He is a patient of Dr. Giordano. He has had a wound to this same area in February 2019 and was seen at [facility] [place] and treated there for 9 weeks with Aquacel and was placed in a wedge shoe to offload his foot. He was treated for this same wound for almost a year at this wound center and was healed in May 2020 and returned in July and was treated until September. He has undergone vascular testing at [facility] in 2018 but not since that time. 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 He and his did not want to do surgery. He has managed to do well over the last 2 years until the end of October when the area became painful again and began draining. He saw Dr. Giordano and was treated with doxycycline which helped and they had been applying Aquacel that they had from previous treatment but it has not improved. He was treated with a second course of doxycycline and then referred here for treatment. He is still working and walking on his foot in a steel toe boot 4 days a week for 10 hours. He had an offloading pad in his work boot previously but no longer has this in place. He denies claudication with walking. He has moderate to heavy drainage from the ulcer. He has not had any wound cultures taken. 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 He denies fever, chill, nausea, vomiting, redness or odor. Subjective Subjective Jose J returns today for follow up of an ulcer on the bottom of his left foot. His ulcer and swelling of his foot is improved. He underwent stress test 09/11/23 and will likely need a stent and heart catheterization. He continues to wear his modified work boot to alleviate pressure to the site of the ulcer of his left foot. He has been tolerating the Aquacel Extra to the ulcer. The area is improved but callus continues to form. He has had increased drainage. He denies fever, chills or odor. Objective Data Objective Data Vital Signs: Vital Signs Temp Pulse Resp BP O2 Del Method 98.4 F 69 20 H 136/67 H Room Air 10/02/23 09:18 10/02/23 09:18 10/02/23 09:18 10/02/23 09:18 09/25/23 10:21 Oxygen Delivery Method Room Air Physical Exam Const alert, oriented x3 and no apparent distress General Appearance: cooperative and comfortable HEENT normocephalic and head/scalp atraumatic Resp normal respiratory effort Effort and Inspection: able to speak in complete sentences Auscultation: rales, rhonchi and diminished lung sounds Cardio regular rate and regular rhythm Skin Wounds: wounds noted Wound Narrative: as in clinical panel Psych mental status grossly normal, thought process normal, cooperative and affect normal Debridement Note Debridement Note Wound debrided: Left lateral plantar foot Laterality: Left Type of Debridement: Excisional debridement Anesthesia Used: 4% Lidocaine Solution and 5% Lidocaine Gel Depth: Down to and including healthy tissue and in the subcutaneous layer Percentage of wound debrided: 100 Instrument Used: #15 blade and Forceps Tissue Removed: Yellow slough, devitalized tissue Severity: Fat Layer Exposed Amount of bleeding with debridement: Mild Bleeding Controlled with: Compression and gauze Patient tolerated procedure: Patient tolerated procedure well Post-Debridement Measurements and Additional Note: Post-Debridement Measurements/Treatment - Nurse 1 - General Ulcer Assessment Start: 09/25/23 10:21 Freq: Status: Active Protocol: [email or web address] Activity Type Activity Date Activity User E-sign Co-sign Detail Recorded Client Recorded Date Recorded By Document 09/25/23 10:21 RB Desktop 09/25/23 10:22 RB Document 10/02/23 09:18 DL Desktop 10/02/23 09:25 DL 09/25/23 10/02/23 10:21 09:18 - Today's Visit Information Type of service Follow-up Visit Follow-up Visit (Physician/HISTORICAL RECORDS ADMINISTRATOR (Physician/HISTORICAL RECORDS ADMINISTRATOR ) ) Arrival Mode Ambulatory Ambulatory Transfer Assistance None Accompanied by Patient Identification Verified (Name & Yes Yes ) Patient Requires Transmission-Based No Precautions Height and Weight Weight Measurement Method Estimated by Patient Vital Signs Temperature (97.8 F-99.1 F) 98.0 F 98.4 F Temperature Source Temporal Temporal Pulse Rate (60-100) 79 69 Pulse Location Monitor Monitor Respiratory Rate (12-18) 18 20 H Respiratory rate source Observation Observation Oxygen Delivery Method Room Air Blood Pressure (90/60-120/80) 118/64 136/67 H Blood Pressure Mean (mm Hg) 82 90 Source Monitor Monitor Position Semi-Fowlers Blood Pressure Location Left Arm History Since Last Visit- (Skip if this is Patient's initial visit) Have you changed medications since your No No last visit? Any new allergies or adverse reactions No No Had a fall/change in ADL's that may No No increase risk of falls Signs or symptoms of abuse and/or No No neglect since last visit Have you been in the hospital since your No No last visit? Has dressing in place as prescribed Yes Yes Has compression in place as prescribed N/A N/A Has offloadiing in place as prescribed N/A Experienced any changes in pain level or No No management Left Footwear Regular Shoe Right Footwear Regular Shoe Pain Scale: 0-10 Numeric Is Patient Pain Free? Yes Yes WC - Nurse 1 - General Ulcer Measurement Start: 09/25/23 10:21 Freq: Status: Active Protocol: Activity Type Activity Date Activity User E-sign Co-sign Detail Recorded Client Recorded Date Recorded By Document 09/25/23 10:21 RB Desktop 09/25/23 10:22 RB Document 10/02/23 09:18 DL Desktop 10/02/23 09:25 DL 09/25/23 10/02/23 10:21 09:18 Wound Center Nurse 1 #3 L Lateral Plantar Foot -Current Size (cm) - Length 0.5 0.5 -Current Size (cm) - Width 1 0.8 -Current Size (cm) - Depth 0.1 0.2 -Total Square Cm 0.5 0.40 -Exudate Amt Small Medium -Exudate Type Serosanguineous Serosanguineous -Wound Margin Distinct, Thickened Outline Attached -Granulation Amt Large (67-100%) Large (67-100%) -Granulation Quality [place] -Necrosis Amt Small (1-33%) Small (1-33%) -Necrotic Tissue Type Adherent Slough Adherent Slough -Structure Exposed N/A -Texture (Flory-wound Skin Appearance) Assessed,Callus Callus,Scarring -Moisture (Flory-wound Skin Appearance) Assessed No Abnormality -Color (Flory-wound Skin Appearance) Assessed No Abnormality -Temperature (Flory-wound Skin No Abnormality No Abnormality Appearance) (Pt Warm) (Pt Warm) -Tenderness on Palpation (Flory-wound No No Skin Appearance) -Ulcer Cleansing Rinsed/ Rinsed/ Irrigated with Irrigated with Saline Saline -Foul Odor after Cleansing No No -Anesthetic Used 5% Lidocaine 5% Lidocaine Gel Gel WC - Nurse 2 - General Ulcer CM Notes Start: 09/25/23 10:21 Freq: Status: Active Protocol: Activity Type Activity Date Activity User E-sign Co-sign Detail Recorded Client Recorded Date Recorded By Document 09/25/23 10:48 GM Desktop 09/25/23 10:49 GM Edit Result 09/25/23 10:48 GM (1) Desktop 09/25/23 11:10 GM Document 10/02/23 09:35 GM Desktop 10/02/23 09:45 GM (1) #3 L Lateral Plantar Foot - Post Debridement (cm) - Length => 0.5 - Post Debridement (cm) - Width => 1.1 - Post Debridement (cm) - Depth => 0.1 - Total Square (Post) (cm) => 0.55 - Area of Debridement (cm) - Length => 0.5 - Area of Debridement (cm) - Width => 1.1 - Total Square (Area) (cm) => 0.55 09/25/23 10/02/23 10:48 09:35 Wound Center Nurse 2 #3 L Lateral Plantar Foot -Time 10:48 09:36 -Correct Patient Yes Yes -Correct Side, Site, Position Yes Yes -Correct Procedure Yes Yes -Procedure Performed Yes Yes -Type of Procedure Debridement Debridement -Clinical Debridement Subcutaneous Subcutaneous -Tissue Removed Subcutaneous Subcutaneous -Post Debridement (cm) - Length 0.5 0.5 -Post Debridement (cm) - Width 1.1 1.0 -Post Debridement (cm) - Depth 0.1 0.1 -Total Square (Post) (cm) 0.55 0.50 -Area of Debridement (cm) - Length 0.5 0.5 -Area of Debridement (cm) - Width 1.1 1.0 -Total Square (Area) (cm) 0.55 0.50 -Tunneling No No -Undermining/Tunneling No No -Circular Undermining No No -Wound/Ulcer Outcome Not Healed Not Healed -Ulcer Cleansing Rinsed/ Rinsed/ Irrigated with Irrigated with Saline Saline -Foul Odor after Cleansing No No -Bioengineered Tissue No No -Bleeding Controlled with Pressure Pressure -Treatment Response Procedure Procedure Tolerated Well Tolerated Well -Debridement - Subq, 1st 20sq cm Yes Yes Pain Scale: 0-10 Numeric Is Patient Pain Free? Yes Yes - Nurse 3 - General Ulcer D/C NN Start: 09/25/23 10:21 Freq: Status: Active Protocol: Activity Type Activity Date Activity User E-sign Co-sign Detail Recorded Client Recorded Date Recorded By Document 09/25/23 11:28 RB Desktop 09/25/23 11:29 RB Document 10/02/23 09:56 RB Desktop 10/02/23 09:57 RB 09/25/23 10/02/23 11:28 09:56 Wound Care Center Nurse 3 #3 L Lateral Plantar Foot -Ulcer Cleansing Rinsed/ Rinsed/ Irrigated with Irrigated with Saline Saline -Primary Dressing Applied Aquacel Extra Aquacel Extra -Primary Dressing Covered/Secured with Dry Gauze,Dry Dry Gauze,Dry Gauze & Roll Gauze & Roll Gauze,Secured Gauze,Secured with Tape with Tape -Aquacel Extra 1 1 Treatment Response Procedure Tolerated Well Pain Scale: 0-10 Numeric Is Patient Pain Free? Yes Yes - Visit Discharge Discharge Condition Stable Stable Ambulatory Status Ambulatory Ambulatory Transportation Private Auto Private Auto Medication Reconcilliation completed & No No provided to patient/care provider Clinical Summary of Care Provided Yes Yes Assessment/Plan Assessment/Plan (1) Abscess of left foot excluding toes: CODE(S): L02.612 - Cutaneous abscess of left foot (2) Delayed wound healing: CODE(S): T14.8XXD - Other injury of unspecified body region, subsequent encounter (3) Chronic ulcer of left foot with fat layer exposed: CODE(S): L97.522 - Non-pressure chronic ulcer of other part of left foot with fat layer exposed (4) HTN (hypertension): CODE(S): I10 - Essential (primary) hypertension QUALIFIERS: Hypertension type: primary hypertension Qualified Code(s): I10 - Essential (primary) hypertension (5) Pressure ulcer of left foot, stage 3: CODE(S): L89.893 - Pressure ulcer of other site, stage 3 PLAN: Plan Debridement performed today in clinic as annotated above. At home wound-care instructions: Wash ulcer daily with antibacterial soap and water. Will continue Aquacel Extra to ulcer and cover with gauze and roll gauze to secure daily. Keep dressing clean and dry. His work boot was modified on 07/03/23 to try to offload pressure. Discussed possibly using TCC for offloading in near future. Off-loading: The patient was instructed to avoid pressure and friction on the affected areas. Reposition every 2 hours at minimum. Avoid prolonged standing and/or dangling of legs. When seated, feet should be elevated at chest level. Frequent ambulation is encouraged. Diet: Patient encouraged to increase protein intake while taking caution to avoid high carbohydrate and/or sugar intake. Labs/cultures/imaging: Wound culture positive 03/27/23 and is currently on Doxycycline. Wound culture showed Staph and Strep and he was treated with Keflex based on sensitivities and use topical Gentamicin for 3 weeks. Wound culture done 09/18/23 was positive for staph epidermidis. Her has been on cephalexin and doxycycline. XR of foot was negative. MRI ordered and is scheduled for Thursday10/02/23 and arterial testing with [facility] will follow. Follow-up: Return in 1 week for wound care follow up. Return sooner or report to the emergency room should symptoms worsen, or new symptoms arise. Note: [employer] speech recognition glass installer technician software was used to create portions of this document. Sound-alike and misspelled words, as well as other glass installer technician errors may be contained in the documentation.
[2023-10-09 08:15] VITALS: BP 119/56; PULSE 74; RESP 18; TEMP 36.1
--- NOTE | 2023-10-09 10:44 | PN.PCM_ITS ---
History of Present Illness Date of Service: 10/09/23 Chief Complaint: nonhealing wound left plantar foot History of Wound: Jose J is a 67 y/o gentleman that presents to the wound healing center for evaluation and treatment of a wound to his left plantar foot. He is a patient of Dr. Giordano. He has had a wound to this same area in February 2019 and was seen at [facility] and treated there for 9 weeks with Aquacel and was placed in a wedge shoe to offload his foot. He was treated for this same wound for almost a year at this wound center and was healed in May 2020 and returned in July and was treated until September. He has undergone vascular testing at [facility] in 2018 but not since that time. 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 He and his did not want to do surgery. He has managed to do well over the last 2 years until the end of October when the area became painful again and began draining. He saw Dr. Giordano and was treated with doxycycline which helped and they had been applying Aquacel that they had from previous treatment but it has not improved. He was treated with a second course of doxycycline and then referred here for treatment. He is still working and walking on his foot in a steel toe boot 4 days a week for 10 hours. He had an offloading pad in his work boot previously but no longer has this in place. He denies claudication with walking. He has moderate to heavy drainage from the ulcer. He has not had any wound cultures taken. 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 He denies fever, chill, nausea, vomiting, redness or odor. Subjective Subjective Jose J returns today for follow up of an ulcer on the bottom of his left foot. His ulcer and swelling of his foot is improved. He underwent stress test 09/11/23 and will likely need a stent and heart catheterization. He continues to wear his modified work boot to alleviate pressure to the site of the ulcer of his left foot. He has been tolerating the Aquacel Extra to the ulcer. The area is improved but callus continues to form. He has had increased drainage. He denies fever, chills or odor. He had MRI last Thursday which did not show any osteomyelitis of his foot. Arterial testing was also done on Thursday and did not show any evidence of arterial insufficiency. Objective Data Objective Data Vital Signs: Vital Signs Temp Pulse Resp BP O2 Del Method 97.0 F L 74 18 119/56 L Room Air 10/09/23 08:15 10/09/23 08:15 10/09/23 08:15 10/09/23 08:15 10/09/23 08:15 Oxygen Delivery Method Room Air Physical Exam Const alert, oriented x3 and no apparent distress General Appearance: cooperative and comfortable HEENT normocephalic and head/scalp atraumatic Resp normal respiratory effort Effort and Inspection: able to speak in complete sentences Auscultation: rales, rhonchi and diminished lung sounds Cardio regular rate and regular rhythm Skin Wounds: wounds noted Wound Narrative: as in clinical panel Psych mental status grossly normal, thought process normal, cooperative and affect normal Debridement Note Debridement Note Wound debrided: Left lateral plantar foot Laterality: Left Type of Debridement: Excisional debridement Anesthesia Used: 4% Lidocaine Solution and 5% Lidocaine Gel Depth: Down to and including healthy tissue and in the subcutaneous layer Percentage of wound debrided: 100 Instrument Used: #15 blade and Forceps Tissue Removed: Yellow slough, devitalized tissue Severity: Fat Layer Exposed Amount of bleeding with debridement: Mild Bleeding Controlled with: Compression and gauze Patient tolerated procedure: Patient tolerated procedure well Post-Debridement Measurements and Additional Note: Post-Debridement Measurements/Treatment QUOC - Nurse 1 - General Ulcer Assessment Start: 09/25/23 10:21 Freq: Status: Active Protocol: KANIKA Activity Type Activity Date Activity User E-sign Co-sign Detail Recorded Client Recorded Date Recorded By Document 09/25/23 10:21 RB Desktop 09/25/23 10:22 RB Document 10/02/23 09:18 DL Desktop 10/02/23 09:25 DL Document 10/09/23 08:15 KW wound center 10/09/23 08:20 KW 09/25/23 10/02/23 10/09/23 10:21 09:18 08:15 QUOC - Today's Visit Information Type of service Follow-up Visit Follow-up Visit Follow-up Visit (Physician/EXTENSION EDGER (Physician/EXTENSION EDGER (Physician/EXTENSION EDGER ) ) ) Arrival Mode Ambulatory Ambulatory Ambulatory Transfer Assistance None Accompanied by Patient Identification Verified (Name & Yes Yes Yes ) Patient Requires Transmission-Based No Precautions Height and Weight Weight Measurement Method Estimated by Patient Vital Signs Temperature (97.8 F-99.1 F) 98.0 F 98.4 F 97.0 F L Temperature Source Temporal Temporal Temporal Pulse Rate (60-100) 79 69 74 Pulse Location Monitor Monitor Monitor Respiratory Rate (12-18) 18 20 H 18 Respiratory rate source Observation Observation Observation Oxygen Delivery Method Room Air Room Air Blood Pressure (90/60-120/80) 118/64 136/67 H 119/56 L Blood Pressure Mean (mm Hg) 82 90 77 Source Monitor Monitor Monitor Position Semi-Fowlers Sitting Blood Pressure Location Left Arm Left Arm History Since Last Visit- (Skip if this is Patient's initial visit) Have you changed medications since your No No No last visit? Any new allergies or adverse reactions No No No Had a fall/change in ADL's that may No No No increase risk of falls Signs or symptoms of abuse and/or No No No neglect since last visit Have you been in the hospital since your No No No last visit? Has dressing in place as prescribed Yes Yes Yes Has compression in place as prescribed N/A N/A Yes Has offloadiing in place as prescribed N/A N/A Experienced any changes in pain level or No No No management Left Footwear Regular Shoe Regular Shoe Right Footwear Regular Shoe Regular Shoe Pain Scale: 0-10 Numeric Is Patient Pain Free? Yes Yes Yes WC - Nurse 1 - General Ulcer Measurement Start: 09/25/23 10:21 Freq: Status: Active Protocol: Activity Type Activity Date Activity User E-sign Co-sign Detail Recorded Client Recorded Date Recorded By Document 09/25/23 10:21 RB Desktop 09/25/23 10:22 RB Document 10/02/23 09:18 DL Desktop 10/02/23 09:25 DL Document 10/09/23 08:15 KW wound center 10/09/23 08:20 KW 09/25/23 10/02/23 10/09/23 10:21 09:18 08:15 Wound Center Nurse 1 #3 L Lateral Plantar Foot -Current Size (cm) - Length 0.5 0.5 -Current Size (cm) - Width 1 0.8 -Current Size (cm) - Depth 0.1 0.2 -Total Square Cm 0.5 0.40 -Exudate Amt Small Medium -Exudate Type Serosanguineous Serosanguineous -Wound Margin Distinct, Thickened Outline Attached -Granulation Amt Large (67-100%) Large (67-100%) -Granulation Quality [place] -Necrosis Amt Small (1-33%) Small (1-33%) -Necrotic Tissue Type Adherent Slough Adherent Slough -Structure Exposed N/A -Texture (Flory-wound Skin Appearance) Assessed,Callus Callus,Scarring Assessed,Callus -Moisture (Flory-wound Skin Appearance) Assessed No Abnormality Assessed,Dry/ Scaly -Color (Flory-wound Skin Appearance) Assessed No Abnormality Assessed -Temperature (Flory-wound Skin No Abnormality No Abnormality No Abnormality Appearance) (Pt Warm) (Pt Warm) (Pt Warm) -Tenderness on Palpation (Flory-wound No No No Skin Appearance) -Ulcer Cleansing Rinsed/ Rinsed/ Soap and Water Irrigated with Irrigated with Saline Saline -Foul Odor after Cleansing No No -Anesthetic Used 5% Lidocaine 5% Lidocaine 5% Lidocaine Gel Gel Gel WC - Nurse 2 - General Ulcer CM Notes Start: 09/25/23 10:21 Freq: Status: Active Protocol: Activity Type Activity Date Activity User E-sign Co-sign Detail Recorded Client Recorded Date Recorded By Document 09/25/23 10:48 GM Desktop 09/25/23 10:49 GM Edit Result 09/25/23 10:48 GM (1) Desktop 09/25/23 11:10 GM Document 10/02/23 09:35 GM Desktop 10/02/23 09:45 GM Document 10/09/23 08:37 wound center 10/09/23 08:39 GM (1) #3 L Lateral Plantar Foot - Post Debridement (cm) - Length => 0.5 - Post Debridement (cm) - Width => 1.1 - Post Debridement (cm) - Depth => 0.1 - Total Square (Post) (cm) => 0.55 - Area of Debridement (cm) - Length => 0.5 - Area of Debridement (cm) - Width => 1.1 - Total Square (Area) (cm) => 0.55 09/25/23 10/02/23 10/09/23 10:48 09:35 08:37 Wound Center Nurse 2 #3 L Lateral Plantar Foot -Time 10:48 09:36 08:37 -Correct Patient Yes Yes Yes -Correct Side, Site, Position Yes Yes Yes -Correct Procedure Yes Yes Yes -Procedure Performed Yes Yes Yes -Type of Procedure Debridement Debridement Debridement -Clinical Debridement Subcutaneous Subcutaneous Subcutaneous -Tissue Removed Subcutaneous Subcutaneous Subcutaneous -Post Debridement (cm) - Length 0.5 0.5 0.5 -Post Debridement (cm) - Width 1.1 1.0 1.1 -Post Debridement (cm) - Depth 0.1 0.1 0.1 -Total Square (Post) (cm) 0.55 0.50 0.55 -Area of Debridement (cm) - Length 0.5 0.5 0.5 -Area of Debridement (cm) - Width 1.1 1.0 1.1 -Total Square (Area) (cm) 0.55 0.50 0.55 -Tunneling No No No -Undermining/Tunneling No No No -Circular Undermining No No No -Wound/Ulcer Outcome Not Healed Not Healed Not Healed -Ulcer Cleansing Rinsed/ Rinsed/ Rinsed/ Irrigated with Irrigated with Irrigated with Saline Saline Saline -Foul Odor after Cleansing No No No -Bioengineered Tissue No No No -Bleeding Controlled with Pressure Pressure Pressure -Treatment Response Procedure Procedure Procedure Tolerated Well Tolerated Well Tolerated Well -Debridement - Subq, 1st 20sq cm Yes Yes Yes Pain Scale: 0-10 Numeric Is Patient Pain Free? Yes Yes Yes WC - Nurse 3 - General Ulcer D/C NN Start: 09/25/23 10:21 Freq: Status: Active Protocol: Activity Type Activity Date Activity User E-sign Co-sign Detail Recorded Client Recorded Date Recorded By Document 09/25/23 11:28 RB Desktop 09/25/23 11:29 RB Document 10/02/23 09:56 RB Desktop 10/02/23 09:57 RB Document 10/09/23 08:54 KW wound center 10/09/23 08:58 KW 09/25/23 10/02/23 10/09/23 11:28 09:56 08:54 Wound Care Center Nurse 3 #3 L Lateral Plantar Foot -Ulcer Cleansing Rinsed/ Rinsed/ Irrigated with Irrigated with Saline Saline -Primary Dressing Applied Aquacel Extra Aquacel Extra Aquacel Extra -Primary Dressing Covered/Secured with Dry Gauze,Dry Dry Gauze,Dry Dry Gauze & Gauze & Roll Gauze & Roll Roll Gauze, Gauze,Secured Gauze,Secured Secured with with Tape with Tape Tape -Aquacel Extra 1 1 1 Treatment Response Procedure Tolerated Well Pain Scale: 0-10 Numeric Is Patient Pain Free? Yes Yes Yes WC - Visit Discharge Discharge Condition Stable Stable Stable Ambulatory Status Ambulatory Ambulatory Ambulatory Transportation Private Auto Private Auto Private Auto Medication Reconcilliation completed & No No No provided to patient/care provider Clinical Summary of Care Provided Yes Yes Yes Assessment/Plan Assessment/Plan (1) Abscess of left foot excluding toes: CODE(S): L02.612 - Cutaneous abscess of left foot (2) Delayed wound healing: CODE(S): T14.8XXD - Other injury of unspecified body region, subsequent encounter (3) Chronic ulcer of left foot with fat layer exposed: CODE(S): L97.522 - Non-pressure chronic ulcer of other part of left foot with fat layer exposed (4) HTN (hypertension): CODE(S): I10 - Essential (primary) hypertension QUALIFIERS: Hypertension type: primary hypertension Qualified Code(s): I10 - Essential (primary) hypertension (5) Pressure ulcer of left foot, stage 3: CODE(S): L89.893 - Pressure ulcer of other site, stage 3 PLAN: Plan Debridement performed today in clinic as annotated above. At home wound-care instructions: Wash ulcer daily with antibacterial soap and water. Will continue Aquacel Extra to ulcer and cover with gauze and roll gauze to secure daily. Keep dressing clean and dry. His work boot was modified on 07/03/23 to try to offload pressure. Discussed possibly using TCC for offloading in near future but he is unable to do so due to work. We also discussed that there may be a single vessel narrowing that could be preventing healing and talked about possible referral to Vascular surgery to CTA runoff. Off-loading: The patient was instructed to avoid pressure and friction on the affected areas. Reposition every 2 hours at minimum. Avoid prolonged standing and/or dangling of legs. When seated, feet should be elevated at chest level. Frequent ambulation is encouraged. Diet: Patient encouraged to increase protein intake while taking caution to avoid high carbohydrate and/or sugar intake. Labs/cultures/imaging: Wound culture positive 03/27/23 and is currently on Doxycycline. Wound culture showed Staph and Strep and he was treated with Keflex based on sensitivities and use topical Gentamicin for 3 weeks. Wound culture done 09/18/23 was positive for staph epidermidis. Her has been on cephalexin and doxycycline. XR of foot was negative. MRI negative for osteomyelitis and arterial testing negative for arterial insufficiency. Follow-up: Return in 3 weeks for wound care follow up due to conflicting schedules. Return sooner or report to the emergency room should symptoms worsen, or new symptoms arise. Note: [employer] speech recognition business continuity planning director software was used to create portions of this document. Sound-alike and misspelled words, as well as other business continuity planning director errors may be contained in the documentation.
--- NOTE | 2023-10-20 16:07 | WC ---
Patient's Corinne called asking about the blood work results that her had a few weeks ago. Notified Dr Plummer about this and she said that all looks good and his AIC was 6.5 and she was pleased with this. Discussed this with Corinne and they are scheduled on 10-30-2023 to the wound center.
== END 2023-10-23 23:59 ==
LOC: WC 08:30
PROVIDERS: PCP Family Medicine; Referring Provider Family Medicine; Visit Provider Family Medicine
DX: L89.893 Pressure ulcer of other site, stage 3 (principal); I10 Essential (primary) hypertension; L02.612 Cutaneous abscess of left foot; Z79.899 Other long term (current) drug therapy
CPT/HCPCS: 11042; 93923

== ENCOUNTER 2023-11-20 10:00 | Outpatient (RCR) | payer BC, SELFPAY ==
[2023-10-24 00:42] VITALS: BP 127/57; PULSE 76; RESP 18; TEMP 36.3
[2023-10-30 10:09] VITALS: BP 140/71; PULSE 68; RESP 18; TEMP 36.7
--- NOTE | 2023-10-30 14:06 | PCM.WC.PN ---
History of Present Illness Date of Service: 10/30/23 Chief Complaint: nonhealing wound left plantar foot History of Wound: Jose J is a 67 y/o gentleman that presents to the wound healing center for evaluation and treatment of a wound to his left plantar foot. He is a patient of Dr. Giordano. He has had a wound to this same area in February 2019 and was seen at [facility] [place] and treated there for 9 weeks with Aquacel and was placed in a wedge shoe to offload his foot. He was treated for this same wound for almost a year at this wound center and was healed in May 2020 and returned in July and was treated until September. He has undergone vascular testing at [facility] in 2018 but not since that time. 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 He and his did not want to do surgery. He has managed to do well over the last 2 years until the end of October when the area became painful again and began draining. He saw Dr. Giordano and was treated with doxycycline which helped and they had been applying Aquacel that they had from previous treatment but it has not improved. He was treated with a second course of doxycycline and then referred here for treatment. He is still working and walking on his foot in a steel toe boot 4 days a week for 10 hours. He had an offloading pad in his work boot previously but no longer has this in place. He denies claudication with walking. He has moderate to heavy drainage from the ulcer. He has not had any wound cultures taken. 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 He denies fever, chill, nausea, vomiting, redness or odor. Subjective Subjective Jose J returns today for follow up of an ulcer on the bottom of his left foot. His ulcer and swelling of his foot worsened since last week. He underwent stress test 09/11/23 and will likely need a stent and heart catheterization. He continues to wear his modified work boot to alleviate pressure to the site of the ulcer of his left foot. He has been tolerating the Aquacel Extra to the ulcer. The area is improved but callus continues to form. He has had increased drainage. He denies fever, chills or odor. He had MRI last Thursday which did not show any osteomyelitis of his foot. Arterial testing was also done on Thursday and did not show any evidence of arterial insufficiency. HgbA1C was 6.5% on 10/09/23. Objective Data Objective Data Vital Signs: Vital Signs Temp Pulse Resp BP 98.1 F 68 18 140/71 H 10/30/23 10:10/30/23 10:10/30/23 10:10/30/23 10:09 Physical Exam Const alert, oriented x3 and no apparent distress General Appearance: cooperative and comfortable HEENT normocephalic and head/scalp atraumatic Resp normal respiratory effort Effort and Inspection: able to speak in complete sentences Auscultation: rales, rhonchi and diminished lung sounds Cardio regular rate and regular rhythm Skin Wounds: wounds noted Wound Narrative: as in clinical panel Psych mental status grossly normal, thought process normal, cooperative and affect normal Debridement Note Debridement Note Wound debrided: left plantar foot Laterality: Left Type of Debridement: Excisional debridement Anesthesia Used: 4% Lidocaine Solution and 5% Lidocaine Gel Depth: Down to and including healthy tissue and in the subcutaneous layer Percentage of wound debrided: 100 Instrument Used: #15 blade and Forceps Tissue Removed: Yellow slough, devitalized tissue Severity: Fat Layer Exposed Amount of bleeding with debridement: Mild Bleeding Controlled with: Compression and gauze Patient tolerated procedure: Patient tolerated procedure well Post-Debridement Measurements and Additional Note: Post-Debridement Measurements/Treatment - Nurse 1 - General Ulcer Assessment Start: 10/30/23 10:09 Freq: Status: Active Protocol: KANIKA Activity Type Activity Date Activity User E-sign Co-sign Detail Recorded Client Recorded Date Recorded By Document 10/30/23 10:09 wound center 10/30/23 10:11 10/30/23 10:09 - Today's Visit Information Type of service Follow-up Visit (Physician/TAR AND 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 PUMP OPERATOR ) Arrival Mode Ambulatory Transfer Assistance None Patient Identification Verified (Name & Yes ) Patient Requires Transmission-Based No Precautions Vital Signs Temperature (97.8 F-99.1 F) 98.1 F Temperature Source Temporal Pulse Rate (60-100) 68 Pulse Location Monitor Respiratory Rate (12-18) 18 Respiratory rate source Observation Blood Pressure (90/60-120/80) 140/71 H Blood Pressure Mean (mm Hg) 94 Source Monitor Position Semi-Fowlers Blood Pressure Location Left Arm History Since Last Visit- (Skip if this is Patient's initial visit) Have you changed medications since your No last visit? Any new allergies or adverse reactions No Had a fall/change in ADL's that may No increase risk of falls Signs or symptoms of abuse and/or No neglect since last visit Have you been in the hospital since your No last visit? Has dressing in place as prescribed Yes Has compression in place as prescribed No Has offloadiing in place as prescribed No Experienced any changes in pain level or No management Pain Scale: 0-10 Numeric Is Patient Pain Free? Yes - Nurse 1 - General Ulcer Measurement Start: 10/30/23 10:09 Freq: Status: Active Protocol: Activity Type Activity Date Activity User E-sign Co-sign Detail Recorded Client Recorded Date Recorded By Document 10/30/23 10:09 RB wound center 10/30/23 10:11 RB 10/30/23 10:09 Wound Center Nurse 1 #3 L Lateral Plantar Foot -Combined with other wound No -Current Size (cm) - Length 1 -Current Size (cm) - Width 1.5 -Current Size (cm) - Depth 0.1 -Total Square Cm 1.5 -Tunneling No -Undermining/Tunneling No -Circular Undermining No -Exudate Amt Large -Exudate Type Serosanguineous -Wound Margin Distinct, Outline Attached -Granulation Amt Medium (34-66%) -Granulation Quality Hyper- granulation -Necrosis Amt Medium (34-66%) -Necrotic Tissue Type Adherent Slough -Structure Exposed N/A -Texture (Flory-wound Skin Appearance) Assessed,Callus -Moisture (Flory-wound Skin Appearance) Assessed -Color (Flory-wound Skin Appearance) Assessed -Temperature (Flory-wound Skin No Abnormality Appearance) (Pt Warm) -Tenderness on Palpation (Flory-wound No Skin Appearance) -Ulcer Cleansing Wound Cleanser -Foul Odor after Cleansing No -Anesthetic Used 5% Lidocaine Gel - Nurse 2 - General Ulcer CM Notes Start: 10/30/23 10:09 Freq: Status: Active Protocol: Activity Type Activity Date Activity User E-sign Co-sign Detail Recorded Client Recorded Date Recorded By Document 10/30/23 10:20 [facility] 10/30/23 10:39 10/30/23 10:20 Wound Center Nurse 2 -Time 10:20 -Correct Patient Yes -Correct Side, Site, Position Yes -Correct Procedure Yes -Procedure Performed Yes -Type of Procedure Debridement -Clinical Debridement Subcutaneous -Tissue Removed Subcutaneous -Post Debridement (cm) - Length 1.0 -Post Debridement (cm) - Width 1.8 -Post Debridement (cm) - Depth 0.1 -Total Square (Post) (cm) 1.80 -Area of Debridement (cm) - Length 1.0 -Area of Debridement (cm) - Width 1.8 -Total Square (Area) (cm) 1.80 -Tunneling No -Undermining/Tunneling No -Circular Undermining No -Wound/Ulcer Outcome Not Healed -Ulcer Cleansing Rinsed/ Irrigated with Saline -Foul Odor after Cleansing No -Bioengineered Tissue No -Bleeding Controlled with Pressure -Treatment Response Procedure Tolerated Well -Debridement - Subq, 1st 20sq cm Yes Pain Scale: 0-10 Numeric Is Patient Pain Free? Yes - Nurse 3 - General Ulcer D/C NN Start: 10/30/23 10:09 Freq: Status: Active Protocol: Activity Type Activity Date Activity User E-sign Co-sign Detail Recorded Client Recorded Date Recorded By Document 10/30/23 10:59 wound center 10/30/23 10:59 10/30/23 10:59 Wound Care Center Nurse 3 #3 L Lateral Plantar Foot -Ulcer Cleansing Rinsed/ Irrigated with Saline -Primary Dressing Applied Aquacel Extra -Primary Dressing Covered/Secured with Dry Gauze,Dry Gauze & Roll Gauze,Secured with Tape -Aquacel Extra 1 Left -Tubular Bandage Single Layer -Size of Tubigrip Used Size D -Size D ($) 2 Treatment Response Procedure Tolerated Well Pain Scale: 0-10 Numeric Is Patient Pain Free? Yes WC - Visit Discharge Discharge Condition Stable Ambulatory Status Ambulatory Transportation Private Auto Medication Reconcilliation completed & No provided to patient/care provider Clinical Summary of Care Provided Yes Assessment/Plan Assessment/Plan (1) Abscess of left foot excluding toes: CODE(S): L02.612 - Cutaneous abscess of left foot (2) Delayed wound healing: CODE(S): T14.8XXD - Other injury of unspecified body region, subsequent encounter (3) Chronic ulcer of left foot with fat layer exposed: CODE(S): L97.522 - Non-pressure chronic ulcer of other part of left foot with fat layer exposed (4) HTN (hypertension): CODE(S): I10 - Essential (primary) hypertension QUALIFIERS: Hypertension type: primary hypertension Qualified Code(s): I10 - Essential (primary) hypertension (5) Pressure ulcer of left foot, stage 3: CODE(S): L89.893 - Pressure ulcer of other site, stage 3 PLAN: Plan Debridement performed today in clinic as annotated above. At home wound-care instructions: Wash ulcer daily with antibacterial soap and water. Will continue Aquacel Extra to ulcer and cover with gauze and roll gauze to secure daily. Keep dressing clean and dry. His work boot was modified on 07/03/23 to try to offload pressure. Will have him use single layer tubigrip medium compression to left LE. Discussed possibly using TCC for offloading in near future but he is unable to do so due to work. We also discussed that there may be a single vessel narrowing that could be preventing healing and talked about possible referral to Vascular surgery to CTA runoff. Off-loading: The patient was instructed to avoid pressure and friction on the affected areas. Reposition every 2 hours at minimum. Avoid prolonged standing and/or dangling of legs. When seated, feet should be elevated at chest level. Frequent ambulation is encouraged. Diet: Patient encouraged to increase protein intake while taking caution to avoid high carbohydrate and/or sugar intake. Labs/cultures/imaging: Wound culture positive 03/27/23 and is currently on Doxycycline. Wound culture showed Staph and Strep and he was treated with Keflex based on sensitivities and use topical Gentamicin for 3 weeks. Wound culture done 09/18/23 was positive for staph epidermidis. Her has been on cephalexin and doxycycline. XR of foot was negative. MRI negative for osteomyelitis and arterial testing negative for arterial insufficiency. Follow-up: Return in 1 week for wound care follow up due to conflicting schedules. Return sooner or report to the emergency room should symptoms worsen, or new symptoms arise. Note: [employer] speech recognition bag worker software was used to create portions of this document. Sound-alike and misspelled words, as well as other bag worker errors may be contained in the documentation.
[2023-11-06 09:51] VITALS: BP 120/61; PULSE 70; RESP 16; TEMP 36.2
--- NOTE | 2023-11-06 13:25 | PN.PCM_ITS ---
History of Present Illness Date of Service: 11/06/23 Chief Complaint: nonhealing wound left plantar foot History of Wound: Jose J is a 67 y/o gentleman that presents to the wound healing center for evaluation and treatment of a wound to his left plantar foot. He is a patient of Dr. Giordano. He has had a wound to this same area in February 2019 and was seen at [facility] [place] and treated there for 9 weeks with Aquacel and was placed in a wedge shoe to offload his foot. He was treated for this same wound for almost a year at this wound center and was healed in May 2020 and returned in July and was treated until September. He has undergone vascular testing at [facility] in 2018 but not since that time. 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 He and his did not want to do surgery. He has managed to do well over the last 2 years until the end of October when the area became painful again and began draining. He saw Dr. Giordano and was treated with doxycycline which helped and they had been applying Aquacel that they had from previous treatment but it has not improved. He was treated with a second course of doxycycline and then referred here for treatment. He is still working and walking on his foot in a steel toe boot 4 days a week for 10 hours. He had an offloading pad in his work boot previously but no longer has this in place. He denies claudication with walking. He has moderate to heavy drainage from the ulcer. He has not had any wound cultures taken. 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 He denies fever, chill, nausea, vomiting, redness or odor. Subjective Subjective Jose J returns today for follow up of an ulcer on the bottom of his left foot. His ulcer and swelling of his foot has improved since last week. He underwent stress test 09/11/23 and will likely need a stent and heart catheterization at some point in the future. He continues to wear his modified work boot to alleviate pressure to the site of the ulcer of his left foot. He has been tolerating the Aquacel Extra to the ulcer. The area is improved but callus continues to form. He has had increased drainage. He denies fever, chills or odor. He had MRI last Thursday which did not show any osteomyelitis of his foot. Arterial testing was also done on Thursday and did not show any evidence of arterial insufficiency. HgbA1C was 6.5% on 10/09/23. Objective Data Objective Data Vital Signs: Vital Signs Temp Pulse Resp BP O2 Del Method 97.2 F L 70 16 120/61 Room Air 11/06/23 09:51 11/06/23 09:51 11/06/23 09:51 11/06/23 09:51 11/06/23 09:51 Oxygen Delivery Method Room Air Physical Exam Const alert, oriented x3 and no apparent distress General Appearance: cooperative and comfortable HEENT normocephalic and head/scalp atraumatic Resp normal respiratory effort Effort and Inspection: able to speak in complete sentences Auscultation: rales, rhonchi and diminished lung sounds Cardio regular rate and regular rhythm Skin Wounds: wounds noted Wound Narrative: as in clinical panel Psych mental status grossly normal, thought process normal, cooperative and affect normal Debridement Note Debridement Note Wound debrided: left plantar foot Laterality: Left Type of Debridement: Excisional debridement Anesthesia Used: 4% Lidocaine Solution and 5% Lidocaine Gel Depth: Down to and including healthy tissue and in the subcutaneous layer Percentage of wound debrided: 100 Instrument Used: #15 blade and Forceps Tissue Removed: yellow slough, devitalized tissue Severity: Fat Layer Exposed Amount of bleeding with debridement: Mild Bleeding Controlled with: Compression and gauze Patient tolerated procedure: Patient tolerated procedure well Post-Debridement Measurements and Additional Note: Post-Debridement Measurements/Treatment - Nurse 1 - General Ulcer Assessment Start: 10/30/23 10:09 Freq: Status: Active Protocol: [email or web address].LOWNAIF Activity Type Activity Date Activity User E-sign Co-sign Detail Recorded Client Recorded Date Recorded By Document 10/30/23 10:09 RB wound center 10/30/23 10:11 RB Document 11/06/23 09:51 KW d 11/06/23 09:54 KW 10/30/23 11/06/23 10:09 09:51 - Today's Visit Information Type of service Follow-up Visit Follow-up Visit (Physician/MANUFACTURING ENGINEER PAINT (Physician/MANUFACTURING ENGINEER PAINT ) ) Arrival Mode Ambulatory Ambulatory Transfer Assistance None Accompanied by Patient Identification Verified (Name & Yes Yes ) Patient Requires Transmission-Based No Precautions Vital Signs Temperature (97.8 F-99.1 F) 98.1 F 97.2 F L Temperature Source Temporal Temporal Pulse Rate (60-100) 68 70 Pulse Location Monitor Monitor Respiratory Rate (12-18) 18 16 Respiratory rate source Observation Observation Oxygen Delivery Method Room Air Blood Pressure (90/60-120/80) 140/71 H 120/61 Blood Pressure Mean (mm Hg) 94 80 Source Monitor Monitor Position Semi-Fowlers Sitting Blood Pressure Location Left Arm Left Arm History Since Last Visit- (Skip if this is Patient's initial visit) Have you changed medications since your No No last visit? Any new allergies or adverse reactions No No Had a fall/change in ADL's that may No No increase risk of falls Signs or symptoms of abuse and/or No No neglect since last visit Have you been in the hospital since your No No last visit? Has dressing in place as prescribed Yes Yes Has compression in place as prescribed No N/A Has offloadiing in place as prescribed No N/A Experienced any changes in pain level or No No management Left Footwear Regular Shoe Right Footwear Regular Shoe Pain Scale: 0-10 Numeric Is Patient Pain Free? Yes Yes - Nurse 1 - General Ulcer Measurement Start: 10/30/23 10:09 Freq: Status: Active Protocol: Activity Type Activity Date Activity User E-sign Co-sign Detail Recorded Client Recorded Date Recorded By Document 10/30/23 10:09 RB wound center 10/30/23 10:11 RB Document 11/06/23 09:51 KW d 11/06/23 09:54 KW 10/30/23 11/06/23 10:09 09:51 Wound Center Nurse 1 #3 L Lateral Plantar Foot -Combined with other wound No -Current Size (cm) - Length 1 0.6 -Current Size (cm) - Width 1.5 0.8 -Current Size (cm) - Depth 0.1 0.2 -Total Square Cm 1.5 0.48 -Tunneling No -Undermining/Tunneling No -Circular Undermining No -Exudate Amt Large Small -Exudate Type Serosanguineous Serosanguineous -Wound Margin Distinct, Distinct, Outline Outline Attached Attached -Granulation Amt Medium (34-66%) Large (67-100%) -Granulation Quality Hyper- [place],Red granulation -Necrosis Amt Medium (34-66%) -Necrotic Tissue Type Adherent Slough -Structure Exposed N/A -Texture (Flory-wound Skin Appearance) Assessed,Callus Assessed,Callus -Moisture (Flory-wound Skin Appearance) Assessed Assessed -Color (Flory-wound Skin Appearance) Assessed Assessed -Temperature (Flory-wound Skin No Abnormality No Abnormality Appearance) (Pt Warm) (Pt Warm) -Tenderness on Palpation (Flory-wound No No Skin Appearance) -Ulcer Cleansing Wound Cleanser Rinsed/ Irrigated with Saline -Foul Odor after Cleansing No No -Anesthetic Used 5% Lidocaine 5% Lidocaine Gel Gel - Nurse 2 - General Ulcer CM Notes Start: 10/30/23 10:09 Freq: Status: Active Protocol: Activity Type Activity Date Activity User E-sign Co-sign Detail Recorded Client Recorded Date Recorded By Document 10/30/23 10:20 GM 10/30/23 10:39 GM Document 11/06/23 10:45 GM 11/06/23 10:59 GM 10/30/23 11/06/23 10:20 10:45 Wound Center Nurse 2 #3 L Lateral Plantar Foot -Time 10:20 10:46 -Correct Patient Yes Yes -Correct Side, Site, Position Yes Yes -Correct Procedure Yes Yes -Procedure Performed Yes Yes -Type of Procedure Debridement Debridement -Clinical Debridement Subcutaneous Subcutaneous -Tissue Removed Subcutaneous Subcutaneous -Post Debridement (cm) - Length 1.0 0.5 -Post Debridement (cm) - Width 1.8 0.8 -Post Debridement (cm) - Depth 0.1 0.1 -Total Square (Post) (cm) 1.80 0.40 -Area of Debridement (cm) - Length 1.0 0.5 -Area of Debridement (cm) - Width 1.8 0.8 -Total Square (Area) (cm) 1.80 0.40 -Tunneling No No -Undermining/Tunneling No No -Circular Undermining No No -Wound/Ulcer Outcome Not Healed Not Healed -Ulcer Cleansing Rinsed/ Wound Cleanser Irrigated with Saline -Foul Odor after Cleansing No No -Bioengineered Tissue No No -Bleeding Controlled with Pressure Pressure -Treatment Response Procedure Procedure Tolerated Well Tolerated Well -Debridement - Subq, 1st 20sq cm Yes Yes Pain Scale: 0-10 Numeric Is Patient Pain Free? Yes Yes - Nurse 3 - General Ulcer D/C NN Start: 10/30/23 10:09 Freq: Status: Active Protocol: Activity Type Activity Date Activity User E-sign Co-sign Detail Recorded Client Recorded Date Recorded By Document 10/30/23 10:59 RB wound center 10/30/23 10:59 RB Document 11/06/23 11:04 KW d 11/06/23 11:04 KW 10/30/23 11/06/23 10:59 11:04 Wound Care Center Nurse 3 #3 L Lateral Plantar Foot -Ulcer Cleansing Rinsed/ Irrigated with Saline -Primary Dressing Applied Aquacel Extra Aquacel Extra -Primary Dressing Covered/Secured with Dry Gauze,Dry Dry Gauze & Gauze & Roll Roll Gauze, Gauze,Secured Secured with with Tape Tape -Aquacel Extra 1 1 Left -Tubular Bandage Single Layer -Size of Tubigrip Used Size D -Size D ($) 2 Treatment Response Procedure Tolerated Well Pain Scale: 0-10 Numeric Is Patient Pain Free? Yes Yes WC - Visit Discharge Discharge Condition Stable Stable Ambulatory Status Ambulatory Ambulatory Transportation Private Auto Private Auto Medication Reconcilliation completed & No No provided to patient/care provider Clinical Summary of Care Provided Yes Yes Assessment/Plan Assessment/Plan (1) Abscess of left foot excluding toes: CODE(S): L02.612 - Cutaneous abscess of left foot (2) Delayed wound healing: CODE(S): T14.8XXD - Other injury of unspecified body region, subsequent encounter (3) Chronic ulcer of left foot with fat layer exposed: CODE(S): L97.522 - Non-pressure chronic ulcer of other part of left foot with fat layer exposed (4) HTN (hypertension): CODE(S): I10 - Essential (primary) hypertension QUALIFIERS: Hypertension type: primary hypertension Qualified Code(s): I10 - Essential (primary) hypertension (5) Pressure ulcer of left foot, stage 3: CODE(S): L89.893 - Pressure ulcer of other site, stage 3 PLAN: Plan Debridement performed today in clinic as annotated above. At home wound-care instructions: Wash ulcer daily with antibacterial soap and water. Will continue Aquacel Extra to ulcer and cover with gauze and roll gauze to secure daily. Keep dressing clean and dry. His work boot was modified on 07/03/23 to try to offload pressure. Will have him use single layer tubigrip medium compression to left LE. Discussed possibly using TCC for offloading in near future but he is unable to do so due to work. We also discussed that there may be a single vessel narrowing that could be preventing healing and talked about possible referral to Vascular surgery to CTA runoff. Off-loading: The patient was instructed to avoid pressure and friction on the affected areas. Reposition every 2 hours at minimum. Avoid prolonged standing and/or dangling of legs. When seated, feet should be elevated at chest level. Frequent ambulation is encouraged. Diet: Patient encouraged to increase protein intake while taking caution to avoid high carbohydrate and/or sugar intake. Labs/cultures/imaging: Wound culture positive 03/27/23 and is currently on Doxycycline. Wound culture showed Staph and Strep and he was treated with Keflex based on sensitivities and use topical Gentamicin for 3 weeks. Wound culture done 09/18/23 was positive for staph epidermidis. He has been on cephalexin and doxycycline. XR of foot was negative. MRI negative for osteomyelitis and arterial testing negative for arterial insufficiency. Follow-up: Return in 1 week for wound care follow up due to conflicting schedules. Return sooner or report to the emergency room should symptoms worsen, or new symptoms arise. Note: [email or web address] speech recognition nut sheller machine operator software was used to create portions of this document. Sound-alike and misspelled words, as well as other nut sheller machine operator errors may be contained in the documentation.
[2023-11-20 10:00] VITALS: BP 133/73; PULSE 70; RESP 18; TEMP 36.1
--- NOTE | 2023-11-20 12:35 | PN.PCM_ITS ---
History of Present Illness Date of Service: 11/20/23 Chief Complaint: nonhealing wound left plantar foot History of Wound: Jose J is a 67 y/o gentleman that presents to the wound healing center for evaluation and treatment of a wound to his left plantar foot. He is a patient of Dr. iGordano. He has had a wound to this same area in February 2019 and was seen at [facility] [place] and treated there for 9 weeks with Aquacel and was placed in a wedge shoe to offload his foot. He was treated for this same wound for almost a year at this wound center and was healed in May 2020 and returned in July and was treated until September. He has undergone vascular testing at [facility] in 2018 but not since that time. 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 He and his did not want to do surgery. He has managed to do well over the last 2 years until the end of October when the area became painful again and began draining. He saw Dr. Giordano and was treated with doxycycline which helped and they had been applying Aquacel that they had from previous treatment but it has not improved. He was treated with a second course of doxycycline and then referred here for treatment. He is still working and walking on his foot in a steel toe boot 4 days a week for 10 hours. He had an offloading pad in his work boot previously but no longer has this in place. He denies claudication with walking. He has moderate to heavy drainage from the ulcer. He has not had any wound cultures taken. 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 He denies fever, chill, nausea, vomiting, redness or odor. Subjective Subjective Jose J returns today for follow up of an ulcer on the bottom of his left foot. His ulcer and swelling of his foot has improved since last week. He underwent stress test 09/11/23 and will likely need a stent and heart catheterization at some point in the future. He continues to wear his modified work boot to alleviate pressure to the site of the ulcer of his left foot. He has been tolerating the Aquacel Extra to the ulcer. The area is improved but callus continues to form. He has had increased drainage. He denies fever, chills or odor. He had MRI on 10/02/23 which did not show any osteomyelitis of his foot. Arterial testing was also done and did not show any evidence of arterial insufficiency. HgbA1C was 6.5% on 10/09/23. Objective Data Objective Data Vital Signs: Vital Signs Temp Pulse Resp BP O2 Del Method 96.9 F L 70 18 133/73 H Room Air 11/20/23 10:00 11/20/23 10:11/20/23 10:00 11/20/23 10:00 11/06/23 09:51 Oxygen Delivery Method Room Air Physical Exam Const alert, oriented x3 and no apparent distress General Appearance: cooperative and comfortable HEENT normocephalic and head/scalp atraumatic Resp normal respiratory effort Effort and Inspection: able to speak in complete sentences Auscultation: rales, rhonchi and diminished lung sounds Cardio regular rate and regular rhythm Skin Wounds: wounds noted Wound Narrative: as in clinical panel Psych mental status grossly normal, thought process normal, cooperative and affect normal Debridement Note Debridement Note Wound debrided: left plantar foot Laterality: Left Type of Debridement: Excisional debridement Anesthesia Used: 4% Lidocaine Solution and 5% Lidocaine Gel Depth: Down to and including healthy tissue and in the subcutaneous layer Percentage of wound debrided: 100 Instrument Used: #15 blade and Forceps Tissue Removed: Yellow slough, devitalized tissue Severity: Fat Layer Exposed Amount of bleeding with debridement: Mild Bleeding Controlled with: Compression and gauze Patient tolerated procedure: Patient tolerated procedure well Post-Debridement Measurements and Additional Note: Post-Debridement Measurements/Treatment - Nurse 1 - General Ulcer Assessment Start: 10/30/23 10:09 Freq: Status: Active Protocol: QUOC.AMADA Activity Type Activity Date Activity User E-sign Co-sign Detail Recorded Client Recorded Date Recorded By Document 10/30/23 10:09 RB wound center 10/30/23 10:11 RB Document 11/06/23 09:51 KW d 11/06/23 09:54 KW Document 11/20/23 10:00 RB WOUND 11/20/23 10:01 RB 10/30/23 11/06/23 11/20/23 10:09 09:51 10:00 - Today's Visit Information Type of service Follow-up Visit Follow-up Visit Follow-up Visit (Physician/HYDROGEN POWER PLANT MANAGER (Physician/HYDROGEN POWER PLANT MANAGER (Physician/HYDROGEN POWER PLANT MANAGER ) ) ) Arrival Mode Ambulatory Ambulatory Ambulatory Transfer Assistance None None Accompanied by Patient Identification Verified (Name & Yes Yes Yes ) Patient Requires Transmission-Based No No Precautions Vital Signs Temperature (97.8 F-99.1 F) 98.1 F 97.2 F L 96.9 F L Temperature Source Temporal Temporal Temporal Pulse Rate (60-100) 68 70 70 Pulse Location Monitor Monitor Monitor Respiratory Rate (12-18) 18 16 18 Respiratory rate source Observation Observation Observation Oxygen Delivery Method Room Air Blood Pressure (90/60-120/80) 140/71 H 120/61 133/73 H Blood Pressure Mean (mm Hg) 94 80 93 Source Monitor Monitor Monitor Position Semi-Fowlers Sitting Semi-Fowlers Blood Pressure Location Left Arm Left Arm Left Arm History Since Last Visit- (Skip if this is Patient's initial visit) Have you changed medications since your No No No last visit? Any new allergies or adverse reactions No No No Had a fall/change in ADL's that may No No No increase risk of falls Signs or symptoms of abuse and/or No No No neglect since last visit Have you been in the hospital since your No No No last visit? Has dressing in place as prescribed Yes Yes Yes Has compression in place as prescribed No N/A No Has offloadiing in place as prescribed No N/A Yes Experienced any changes in pain level or No No No management Left Footwear Regular Shoe Right Footwear Regular Shoe Pain Scale: 0-10 Numeric Is Patient Pain Free? Yes Yes Yes WC - Nurse 1 - General Ulcer Measurement Start: 10/30/23 10:09 Freq: Status: Active Protocol: Activity Type Activity Date Activity User E-sign Co-sign Detail Recorded Client Recorded Date Recorded By Document 10/30/23 10:09 RB wound center 10/30/23 10:11 RB Document 11/06/23 09:51 KW d 11/06/23 09:54 KW Document 11/20/23 10:00 RB WOUND 11/20/23 10:01 RB 10/30/23 11/06/23 11/20/23 10:09 09:51 10:00 Wound Center Nurse 1 #3 L Lateral Plantar Foot -Combined with other wound No No -Current Size (cm) - Length 1 0.6 0.1 -Current Size (cm) - Width 1.5 0.8 0.1 -Current Size (cm) - Depth 0.1 0.2 0.1 -Total Square Cm 1.5 0.48 0.01 -Tunneling No No -Undermining/Tunneling No No -Circular Undermining No No -Exudate Amt Large Small Medium -Exudate Type Serosanguineous Serosanguineous Serosanguineous -Wound Margin Distinct, Distinct, Thickened Outline Outline Attached Attached -Granulation Amt Medium (34-66%) Large (67-100%) Medium (34-66%) -Granulation Quality Hyper- [place],Red [place] granulation -Slough/Fibrin Yes -Necrosis Amt Medium (34-66%) Medium (34-66%) -Necrotic Tissue Type Adherent Slough Adherent Slough -Structure Exposed N/A N/A -Texture (Flory-wound Skin Appearance) Assessed,Callus Assessed,Callus Assessed -Moisture (Flory-wound Skin Appearance) Assessed Assessed Assessed -Color (Flory-wound Skin Appearance) Assessed Assessed Assessed -Temperature (Flory-wound Skin No Abnormality No Abnormality No Abnormality Appearance) (Pt Warm) (Pt Warm) (Pt Warm) -Tenderness on Palpation (Flory-wound No No No Skin Appearance) -Ulcer Cleansing Wound Cleanser Rinsed/ Wound Cleanser Irrigated with Saline -Foul Odor after Cleansing No No No -Anesthetic Used 5% Lidocaine 5% Lidocaine 5% Lidocaine Gel Gel Gel - Nurse 2 - General Ulcer CM Notes Start: 10/30/23 10:09 Freq: Status: Active Protocol: Activity Type Activity Date Activity User E-sign Co-sign Detail Recorded Client Recorded Date Recorded By Document 10/30/23 10:20 [facility] 10/30/23 10:39 Document 11/06/23 10:45 [facility] 11/06/23 10:59 Document 11/20/23 10:24 [facility] 11/20/23 10:40 10/30/23 11/06/23 11/20/23 10:20 10:45 10:24 Wound Center Nurse 2 #3 L Lateral Plantar Foot -Time 10:20 10:46 10:25 -Correct Patient Yes Yes Yes -Correct Side, Site, Position Yes Yes Yes -Correct Procedure Yes Yes Yes -Procedure Performed Yes Yes Yes -Type of Procedure Debridement Debridement Debridement -Clinical Debridement Subcutaneous Subcutaneous Subcutaneous -Tissue Removed Subcutaneous Subcutaneous Subcutaneous -Post Debridement (cm) - Length 1.0 0.5 0.4 -Post Debridement (cm) - Width 1.8 0.8 0.5 -Post Debridement (cm) - Depth 0.1 0.1 0.1 -Total Square (Post) (cm) 1.80 0.40 0.20 -Area of Debridement (cm) - Length 1.0 0.5 0.4 -Area of Debridement (cm) - Width 1.8 0.8 0.5 -Total Square (Area) (cm) 1.80 0.40 0.20 -Tunneling No No No -Undermining/Tunneling No No No -Circular Undermining No No No -Wound/Ulcer Outcome Not Healed Not Healed Not Healed -Ulcer Cleansing Rinsed/ Wound Cleanser Not Cleansed Irrigated with Saline -Foul Odor after Cleansing No No No -Bioengineered Tissue No No No -Bleeding Controlled with Pressure Pressure Pressure -Treatment Response Procedure Procedure Procedure Tolerated Well Tolerated Well Tolerated Well -Debridement - Subq, 1st 20sq cm Yes Yes Yes Pain Scale: 0-10 Numeric Is Patient Pain Free? Yes Yes Yes - Nurse 3 - General Ulcer D/C NN Start: 10/30/23 10:09 Freq: Status: Active Protocol: Activity Type Activity Date Activity User E-sign Co-sign Detail Recorded Client Recorded Date Recorded By Document 10/30/23 10:59 RB wound center 10/30/23 10:59 RB Document 11/06/23 11:04 KW d 11/06/23 11:04 KW Document 11/20/23 10:57 RB WOUND 11/20/23 10:58 RB 10/30/23 11/06/23 11/20/23 10:59 11:04 10:57 Wound Care Center Nurse 3 #3 L Lateral Plantar Foot -Ulcer Cleansing Rinsed/ Rinsed/ Irrigated with Irrigated with Saline Saline -Primary Dressing Applied Aquacel Extra Aquacel Extra Aquacel Extra -Primary Dressing Covered/Secured with Dry Gauze,Dry Dry Gauze & Dry Gauze,Dry Gauze & Roll Roll Gauze, Gauze & Roll Gauze,Secured Secured with Gauze,Secured with Tape Tape with Tape -Aquacel Extra 1 1 1 Left -Tubular Bandage Single Layer -Size of Tubigrip Used Size D -Size D ($) 2 Treatment Response Procedure Procedure Tolerated Well Tolerated Well Pain Scale: 0-10 Numeric Is Patient Pain Free? Yes Yes Yes WC - Visit Discharge Discharge Condition Stable Stable Stable Ambulatory Status Ambulatory Ambulatory Ambulatory Transportation Private Auto Private Auto Private Auto Medication Reconcilliation completed & No No No provided to patient/care provider Clinical Summary of Care Provided Yes Yes Yes Assessment/Plan Assessment/Plan (1) Abscess of left foot excluding toes: CODE(S): L02.612 - Cutaneous abscess of left foot (2) Delayed wound healing: CODE(S): T14.8XXD - Other injury of unspecified body region, subsequent encounter (3) Chronic ulcer of left foot with fat layer exposed: CODE(S): L97.522 - Non-pressure chronic ulcer of other part of left foot with fat layer exposed (4) HTN (hypertension): CODE(S): I10 - Essential (primary) hypertension QUALIFIERS: Hypertension type: primary hypertension Qualified Code(s): I10 - Essential (primary) hypertension (5) Pressure ulcer of left foot, stage 3: CODE(S): L89.893 - Pressure ulcer of other site, stage 3 PLAN: Plan Debridement performed today in clinic as annotated above. There has been improvement since his last visit. At home wound-care instructions: Wash ulcer daily with antibacterial soap and water. Will continue Aquacel Extra to ulcer and cover with gauze and roll gauze to secure daily. Keep dressing clean and dry. His work boot was modified on 07/03/23 to try to offload pressure. Will have him use single layer tubigrip medium compression to left LE. Discussed possibly using TCC for offloading in near future but he is unable to do so due to work. We also discussed that there may be a single vessel narrowing that could be preventing healing and talked about possible referral to Vascular surgery to CTA runoff. Off-loading: The patient was instructed to avoid pressure and friction on the affected areas. Reposition every 2 hours at minimum. Avoid prolonged standing and/or dangling of legs. When seated, feet should be elevated at chest level. Frequent ambulation is encouraged. Diet: Patient encouraged to increase protein intake while taking caution to avoid high carbohydrate and/or sugar intake. Labs/cultures/imaging: Wound culture positive 03/27/23 and is currently on Doxycycline. Wound culture showed Staph and Strep and he was treated with Keflex based on sensitivities and use topical Gentamicin for 3 weeks. Wound culture done 09/18/23 was positive for staph epidermidis. He has been on cephalexin and doxycycline. XR of foot was negative. MRI negative for osteomyelitis and arterial testing negative for arterial insufficiency. Follow-up: Return in 2 weeks for wound care follow up due to conflicting schedules. Return sooner or report to the emergency room should symptoms worsen, or new symptoms arise. Note: [employer] speech recognition library clerk talking books software was used to create portions of this document. Sound-alike and misspelled words, as well as other library clerk talking books errors may be contained in the documentation.
== END 2023-11-22 23:59 | disposition home or self-care (01) ==
LOC: WC 10:00
PROVIDERS: PCP Family Medicine; Referring Provider Family Medicine; Visit Provider Family Medicine
DX: L89.893 Pressure ulcer of other site, stage 3 (principal); L02.612 Cutaneous abscess of left foot; I10 Essential (primary) hypertension; Z79.899 Other long term (current) drug therapy
CPT/HCPCS: 11042

== ENCOUNTER 2023-12-18 10:45 | Outpatient (RCR) | payer BC, SELFPAY ==
[2023-11-23 00:11] VITALS: BP 127/57; PULSE 76; RESP 18; TEMP 36.3
[2023-12-04 10:23] VITALS: BP 132/79; PULSE 72; RESP 18; TEMP 36.3
--- NOTE | 2023-12-04 12:38 | PN.PCM_ITS ---
History of Present Illness Date of Service: 12/04/23 Chief Complaint: nonhealing wound left plantar foot History of Wound: Jose J is a 67 y/o gentleman that presents to the wound healing center for evaluation and treatment of a wound to his left plantar foot. He is a patient of Dr. Giordano. He has had a wound to this same area in February 2019 and was seen at [facility] [place] and treated there for 9 weeks with Aquacel and was placed in a wedge shoe to offload his foot. He was treated for this same wound for almost a year at this wound center and was healed in May 2020 and returned in July and was treated until September. He has undergone vascular testing at [facility] in 2018 but not since that time. 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 He and his did not want to do surgery. He has managed to do well over the last 2 years until the end of October when the area became painful again and began draining. He saw Dr. Giordano and was treated with doxycycline which helped and they had been applying Aquacel that they had from previous treatment but it has not improved. He was treated with a second course of doxycycline and then referred here for treatment. He is still working and walking on his foot in a steel toe boot 4 days a week for 10 hours. He had an offloading pad in his work boot previously but no longer has this in place. He denies claudication with walking. He has moderate to heavy drainage from the ulcer. He has not had any wound cultures taken. 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 He denies fever, chill, nausea, vomiting, redness or odor. Subjective Subjective Jose J returns today for follow up of an ulcer on the bottom of his left foot. His ulcer and swelling of his foot has improved since last visit. He underwent stress test 09/11/23 and will likely need a stent and heart catheterization at some point in the future. He continues to wear his modified work boot to alleviate pressure to the site of the ulcer of his left foot. He has been tolerating the Aquacel Extra to the ulcer. The area is improved but callus continues to form. He has had increased drainage. He denies fever, chills or odor. He had MRI on 10/02/23 which did not show any osteomyelitis of his foot. Arterial testing was also done and did not show any evidence of arterial insufficiency. HgbA1C was 6.5% on 10/09/23. Objective Data Objective Data Vital Signs: Vital Signs Temp Pulse Resp BP 97.3 F L 72 18 132/79 H 12/04/23 10:23 12/04/23 10:23 12/04/23 10:12/04/23 10:23 Physical Exam Const alert, oriented x3 and no apparent distress General Appearance: cooperative and comfortable HEENT normocephalic and head/scalp atraumatic Resp normal respiratory effort Effort and Inspection: able to speak in complete sentences Auscultation: rales, rhonchi and diminished lung sounds Cardio regular rate and regular rhythm Skin Wounds: wounds noted Wound Narrative: as in clinical panel Psych mental status grossly normal, thought process normal, cooperative and affect normal Debridement Note Debridement Note Wound debrided: left plantar foot Laterality: Left Type of Debridement: Excisional debridement Anesthesia Used: 4% Lidocaine Solution and 5% Lidocaine Gel Depth: Down to and including healthy tissue and in the subcutaneous layer Percentage of wound debrided: 100 Instrument Used: #15 blade and Forceps Tissue Removed: Yellow slough, devitalized tissue Severity: Fat Layer Exposed Amount of bleeding with debridement: Mild Bleeding Controlled with: Compression and gauze Patient tolerated procedure: Patient tolerated procedure well Post-Debridement Measurements and Additional Note: Post-Debridement Measurements/Treatment - Nurse 1 - General Ulcer Assessment Start: 12/04/23 10:23 Freq: Status: Active Protocol: [email or web address].AMADA Activity Type Activity Date Activity User E-sign Co-sign Detail Recorded Client Recorded Date Recorded By Document 12/04/23 10:23 DS 1 12/04/23 10:30 DS 12/04/23 10:23 - Today's Visit Information Type of service Follow-up Visit (Physician/REFRIGERATION SPECIALIST ) Arrival Mode Ambulatory Patient Requires Transmission-Based No Precautions Vital Signs Temperature (97.8 F-99.1 F) 97.3 F L Temperature Source Temporal Pulse Rate (60-100) 72 Respiratory Rate (12-18) 18 Respiratory rate source Observation Blood Pressure (90/60-120/80) 132/79 H Blood Pressure Mean (mm Hg) 96 Source Monitor Position Sitting Blood Pressure Location Right Arm History Since Last Visit- (Skip if this is Patient's initial visit) Any new allergies or adverse reactions No Had a fall/change in ADL's that may No increase risk of falls Signs or symptoms of abuse and/or No neglect since last visit Have you been in the hospital since your No last visit? Has dressing in place as prescribed Yes Has compression in place as prescribed No Has offloadiing in place as prescribed No Experienced any changes in pain level or No management Left Footwear Regular Shoe Right Footwear Regular Shoe Pain Scale: 0-10 Numeric Is Patient Pain Free? Yes - Nurse 1 - General Ulcer Measurement Start: 12/04/23 10:23 Freq: Status: Active Protocol: Activity Type Activity Date Activity User E-sign Co-sign Detail Recorded Client Recorded Date Recorded By Document 12/04/23 10:23 DS 1 12/04/23 10:30 DS 12/04/23 10:23 Wound Center Nurse 1 #3 L Lateral Plantar Foot -Current Size (cm) - Length 0.5 -Current Size (cm) - Width 1.0 -Current Size (cm) - Depth 0.1 -Total Square Cm 0.50 -Granulation Amt Medium (34-66%) -Granulation Quality [place] -Necrosis Amt Medium (34-66%) -Necrotic Tissue Type Adherent Slough -Texture (Flory-wound Skin Appearance) Assessed,Callus -Moisture (Flory-wound Skin Appearance) Assessed -Color (Flory-wound Skin Appearance) Assessed -Temperature (Flory-wound Skin No Abnormality Appearance) (Pt Warm) -Tenderness on Palpation (Flory-wound No Skin Appearance) -Ulcer Cleansing Soap and Water -Anesthetic Used 5% Lidocaine Gel - Nurse 2 - General Ulcer CM Notes Start: 12/04/23 10:23 Freq: Status: Active Protocol: Activity Type Activity Date Activity User E-sign Co-sign Detail Recorded Client Recorded Date Recorded By Document 12/04/23 10:53 [facility] 12/04/23 11:05 12/04/23 10:53 Wound Center Nurse 2 -Time 10:53 -Correct Patient Yes -Correct Side, Site, Position Yes -Correct Procedure Yes -Procedure Performed Yes -Type of Procedure Debridement -Clinical Debridement Subcutaneous -Tissue Removed Subcutaneous -Post Debridement (cm) - Length 0.7 -Post Debridement (cm) - Width 0.9 -Post Debridement (cm) - Depth 0.1 -Total Square (Post) (cm) 0.63 -Area of Debridement (cm) - Length 0.7 -Area of Debridement (cm) - Width 0.9 -Total Square (Area) (cm) 0.63 -Tunneling No -Undermining/Tunneling No -Circular Undermining No -Wound/Ulcer Outcome Not Healed -Ulcer Cleansing Rinsed/ Irrigated with Saline -Foul Odor after Cleansing Yes, Due to Product Use -Bioengineered Tissue No -Bleeding Controlled with Pressure -Treatment Response Procedure Tolerated Well -Debridement - Subq, 1st 20sq cm Yes Pain Scale: 0-10 Numeric Is Patient Pain Free? Yes WC - Nurse 3 - General Ulcer D/C NN Start: 12/04/23 10:23 Freq: Status: Active Protocol: Activity Type Activity Date Activity User E-sign Co-sign Detail Recorded Client Recorded Date Recorded By Document 12/04/23 11:32 KW ' 12/04/23 11:32 KW 12/04/23 11:32 Wound Care Center Nurse 3 #3 L Lateral Plantar Foot -Primary Dressing Applied Aquacel Extra -Primary Dressing Covered/Secured with Dry Gauze & Roll Gauze, Secured with Tape -Aquacel Extra 1 Pain Scale: 0-10 Numeric Is Patient Pain Free? Yes Assessment/Plan Assessment/Plan (1) Abscess of left foot excluding toes: CODE(S): L02.612 - Cutaneous abscess of left foot (2) Delayed wound healing: CODE(S): T14.8XXD - Other injury of unspecified body region, subsequent encounter (3) Chronic ulcer of left foot with fat layer exposed: CODE(S): L97.522 - Non-pressure chronic ulcer of other part of left foot with fat layer exposed (4) HTN (hypertension): CODE(S): I10 - Essential (primary) hypertension QUALIFIERS: Hypertension type: primary hypertension Qualified Code(s): I10 - Essential (primary) hypertension (5) Pressure ulcer of left foot, stage 3: CODE(S): L89.893 - Pressure ulcer of other site, stage 3 PLAN: Plan Debridement performed today in clinic as annotated above. There has been improvement since his last visit. At home wound-care instructions: Wash ulcer daily with antibacterial soap and water. Will continue Aquacel Extra to ulcer and cover with gauze and roll gauze to secure daily. Keep dressing clean and dry. His work boot was modified on 07/03/23 to try to offload pressure. Will have him use single layer tubigrip medium compression to left LE. Discussed possibly using TCC for offloading in near future but he is unable to do so due to work. We also discussed that there may be a single vessel narrowing that could be preventing healing and talked about possible referral to Vascular surgery to CTA runoff. Off-loading: The patient was instructed to avoid pressure and friction on the affected areas. Reposition every 2 hours at minimum. Avoid prolonged standing and/or dangling of legs. When seated, feet should be elevated at chest level. Frequent ambulation is encouraged. Diet: Patient encouraged to increase protein intake while taking caution to avoid high carbohydrate and/or sugar intake. Labs/cultures/imaging: Wound culture positive 03/27/23 and is currently on Doxycycline. Wound culture showed Staph and Strep and he was treated with Keflex based on sensitivities and use topical Gentamicin for 3 weeks. Wound culture done 09/18/23 was positive for staph epidermidis. He has been on cephalexin and doxycycline. XR of foot was negative. MRI negative for osteomyelitis and arterial testing negative for arterial insufficiency. Follow-up: Return in 2 weeks for wound care follow up due to conflicting schedules. Return sooner or report to the emergency room should symptoms worsen, or new symptoms arise. Note: [employer] speech recognition crm specialist software was used to create portions of this document. Sound-alike and misspelled words, as well as other crm specialist errors may be contained in the documentation.
[2023-12-18 10:35] VITALS: BP 127/77; PULSE 66; TEMP 36.4
--- NOTE | 2023-12-18 13:47 | PCM.WC.PN ---
History of Present Illness Date of Service: 12/18/23 Chief Complaint: nonhealing wound left plantar foot History of Wound: Jose J is a 67 y/o gentleman that presents to the wound healing center for evaluation and treatment of a wound to his left plantar foot. He is a patient of Dr. Giordano. He has had a wound to this same area in February 2019 and was seen at [facility] [place] and treated there for 9 weeks with Aquacel and was placed in a wedge shoe to offload his foot. He was treated for this same wound for almost a year at this wound center and was healed in May 2020 and returned in July and was treated until September. He has undergone vascular testing at [facility] in 2018 but not since that time. 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 He and his did not want to do surgery. He has managed to do well over the last 2 years until the end of October when the area became painful again and began draining. He saw Dr. Giordano and was treated with doxycycline which helped and they had been applying Aquacel that they had from previous treatment but it has not improved. He was treated with a second course of doxycycline and then referred here for treatment. He is still working and walking on his foot in a steel toe boot 4 days a week for 10 hours. He had an offloading pad in his work boot previously but no longer has this in place. He denies claudication with walking. He has moderate to heavy drainage from the ulcer. He has not had any wound cultures taken. 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 He denies fever, chill, nausea, vomiting, redness or odor. Subjective Subjective Jose J returns today for follow up of an ulcer on the bottom of his left foot. His ulcer and swelling of his foot has improved since last visit. He underwent stress test 09/11/23 and will likely need a stent and heart catheterization at some point in the future. He continues to wear his modified work boot to alleviate pressure to the site of the ulcer of his left foot. He has been tolerating the Aquacel Extra to the ulcer. The area is improved but callus continues to form. He has had increased drainage. He denies fever, chills or odor. He had MRI on 10/02/23 which did not show any osteomyelitis of his foot. Arterial testing was also done and did not show any evidence of arterial insufficiency. HgbA1C was 6.5% on 10/09/23. Objective Data Objective Data Vital Signs: Vital Signs Temp Pulse Resp BP O2 Del Method 97.6 F L 66 18 127/77 H Room Air 12/18/23 10:35 12/18/23 10:35 12/04/23 10:23 12/18/23 10:35 12/18/23 10:35 Oxygen Delivery Method Room Air Physical Exam Const alert, oriented x3 and no apparent distress General Appearance: cooperative and comfortable HEENT normocephalic and head/scalp atraumatic Resp normal respiratory effort Effort and Inspection: able to speak in complete sentences Auscultation: rales, rhonchi and diminished lung sounds Cardio regular rate and regular rhythm Skin Wounds: wounds noted Wound Narrative: as in clinical panel Psych mental status grossly normal, thought process normal, cooperative and affect normal Debridement Note Debridement Note Wound debrided: left plantar foot Laterality: Left Type of Debridement: Excisional debridement Anesthesia Used: 4% Lidocaine Solution and 5% Lidocaine Gel Depth: Down to and including healthy tissue and in the subcutaneous layer Percentage of wound debrided: 100 Instrument Used: #15 blade and Forceps Tissue Removed: Yellow slough, devitalized tissue Severity: Fat Layer Exposed Amount of bleeding with debridement: Mild Bleeding Controlled with: Compression and gauze Patient tolerated procedure: Patient tolerated procedure well Post-Debridement Measurements and Additional Note: Post-Debridement Measurements/Treatment - Nurse 1 - General Ulcer Assessment Start: 12/04/23 10:23 Freq: Status: Active Protocol: WC.LOWEXT Activity Type Activity Date Activity User E-sign Co-sign Detail Recorded Client Recorded Date Recorded By Document 12/04/23 10:23 DS 1 12/04/23 10:30 DS Document 12/18/23 10:35 DS 1 12/18/23 10:43 DS 12/04/23 12/18/23 10:23 10:35 - Today's Visit Information Type of service Follow-up Visit Follow-up Visit (Physician/PRESS WASHER (Physician/PRESS WASHER ) ) Arrival Mode Ambulatory Ambulatory Patient Requires Transmission-Based No Precautions Safety Precautions Fall Prevention Vital Signs Temperature (97.8 F-99.1 F) 97.3 F L 97.6 F L Temperature Source Temporal Temporal Pulse Rate (60-100) 72 66 Pulse Location Monitor Respiratory Rate (12-18) 18 Respiratory rate source Observation Observation Oxygen Delivery Method Room Air Blood Pressure (90/60-120/80) 132/79 H 127/77 H Blood Pressure Mean (mm Hg) 96 93 Source Monitor Monitor Position Sitting Sitting Blood Pressure Location Right Arm Left Arm History Since Last Visit- (Skip if this is Patient's initial visit) Have you changed medications since your No last visit? Any new allergies or adverse reactions No No Had a fall/change in ADL's that may No No increase risk of falls Signs or symptoms of abuse and/or No No neglect since last visit Have you been in the hospital since your No No last visit? Has dressing in place as prescribed Yes Yes Has compression in place as prescribed No N/A Has offloadiing in place as prescribed No N/A Experienced any changes in pain level or No management Left Footwear Regular Shoe Regular Shoe Right Footwear Regular Shoe Regular Shoe Pain Scale: 0-10 Numeric Is Patient Pain Free? Yes Yes WC - Nurse 1 - General Ulcer Measurement Start: 12/04/23 10:23 Freq: Status: Active Protocol: Activity Type Activity Date Activity User E-sign Co-sign Detail Recorded Client Recorded Date Recorded By Document 12/04/23 10:23 DS 1 12/04/23 10:30 DS Document 12/18/23 10:35 DS 1 12/18/23 10:43 DS 12/04/23 12/18/23 10:23 10:35 Wound Center Nurse 1 #3 L Lateral Plantar Foot -Current Size (cm) - Length 0.5 0.8 -Current Size (cm) - Width 1.0 1.1 -Current Size (cm) - Depth 0.1 0.1 -Total Square Cm 0.50 0.88 -Tunneling No -Undermining/Tunneling No -Circular Undermining No -Wound Margin Distinct, Outline Attached -Granulation Amt Medium (34-66%) -Granulation Quality [place] -Necrosis Amt Medium (34-66%) -Necrotic Tissue Type Adherent Slough -Texture (Flory-wound Skin Appearance) Assessed,Callus Assessed -Moisture (Flory-wound Skin Appearance) Assessed Assessed -Color (Flory-wound Skin Appearance) Assessed Assessed -Temperature (Flory-wound Skin No Abnormality No Abnormality Appearance) (Pt Warm) (Pt Warm) -Tenderness on Palpation (Flory-wound No No Skin Appearance) -Ulcer Cleansing Soap and Water Soap and Water -Anesthetic Used 5% Lidocaine 5% Lidocaine Gel Gel - Nurse 2 - General Ulcer CM Notes Start: 12/04/23 10:23 Freq: Status: Active Protocol: Activity Type Activity Date Activity User E-sign Co-sign Detail Recorded Client Recorded Date Recorded By Document 12/04/23 10:53 GM 12/04/23 11:05 Document 12/18/23 11:21 [facility] [id number] 12/18/23 11:39 [facility] 12/04/23 12/18/23 10:53 11:21 Wound Center Nurse 2 #3 L Lateral Plantar Foot -Time 10:53 11:21 -Correct Patient Yes Yes -Correct Side, Site, Position Yes Yes -Correct Procedure Yes Yes -Procedure Performed Yes Yes -Type of Procedure Debridement Debridement -Clinical Debridement Subcutaneous Subcutaneous -Tissue Removed Subcutaneous Subcutaneous -Post Debridement (cm) - Length 0.7 0.5 -Post Debridement (cm) - Width 0.9 0.5 -Post Debridement (cm) - Depth 0.1 0.1 -Total Square (Post) (cm) 0.63 0.25 -Area of Debridement (cm) - Length 0.7 0.5 -Area of Debridement (cm) - Width 0.9 0.5 -Total Square (Area) (cm) 0.63 0.25 -Tunneling No No -Undermining/Tunneling No No -Circular Undermining No No -Wound/Ulcer Outcome Not Healed Not Healed -Ulcer Cleansing Rinsed/ Rinsed/ Irrigated with Irrigated with Saline Saline -Foul Odor after Cleansing Yes, Due to No Product Use -Bioengineered Tissue No No -Bleeding Controlled with Pressure Pressure -Treatment Response Procedure Procedure Tolerated Well Tolerated Well -Debridement - Subq, 1st 20sq cm Yes Yes Pain Scale: 0-10 Numeric Is Patient Pain Free? Yes Yes - Nurse 3 - General Ulcer D/C NN Start: 12/04/23 10:23 Freq: Status: Active Protocol: Activity Type Activity Date Activity User E-sign Co-sign Detail Recorded Client Recorded Date Recorded By Document 12/04/23 11:32 KW ' 12/04/23 11:32 KW Document 12/18/23 11:59 RB wound 12/18/23 12:00 RB 12/04/23 12/18/23 11:32 11:59 Wound Care Center Nurse 3 #3 L Lateral Plantar Foot -Ulcer Cleansing Rinsed/ Irrigated with Saline -Primary Dressing Applied Aquacel Extra Aquacel Extra -Primary Dressing Covered/Secured with Dry Gauze & Dry Gauze,Dry Roll Gauze, Gauze & Roll Secured with Gauze,Secured Tape with Tape -Aquacel Extra 1 1 Treatment Response Procedure Tolerated Well Pain Scale: 0-10 Numeric Is Patient Pain Free? Yes Yes WC - Visit Discharge Discharge Condition Stable Ambulatory Status Ambulatory Transportation Private Auto Medication Reconcilliation completed & No provided to patient/care provider Clinical Summary of Care Provided Yes Assessment/Plan Assessment/Plan (1) Abscess of left foot excluding toes: CODE(S): L02.612 - Cutaneous abscess of left foot (2) Delayed wound healing: CODE(S): T14.8XXD - Other injury of unspecified body region, subsequent encounter (3) Chronic ulcer of left foot with fat layer exposed: CODE(S): L97.522 - Non-pressure chronic ulcer of other part of left foot with fat layer exposed (4) HTN (hypertension): CODE(S): I10 - Essential (primary) hypertension QUALIFIERS: Hypertension type: primary hypertension Qualified Code(s): I10 - Essential (primary) hypertension (5) Pressure ulcer of left foot, stage 3: CODE(S): L89.893 - Pressure ulcer of other site, stage 3 PLAN: Plan Debridement performed today in clinic as annotated above. There has been improvement since his last visit. At home wound-care instructions: Wash ulcer daily with antibacterial soap and water. Will continue Aquacel Extra to ulcer and cover with gauze and roll gauze to secure daily. Keep dressing clean and dry. His work boot was modified on 07/03/23 to try to offload pressure. Will have him use single layer tubigrip medium compression to left LE. Discussed possibly using TCC for offloading in near future but he is unable to do so due to work. We also discussed that there may be a single vessel narrowing that could be preventing healing and talked about possible referral to Vascular surgery to CTA runoff. Also discussed surgical procedure proposed by podiatry to shave exostosis of bone that is likely causing ulcer and he declines at this time. Off-loading: The patient was instructed to avoid pressure and friction on the affected areas. Reposition every 2 hours at minimum. Avoid prolonged standing and/or dangling of legs. When seated, feet should be elevated at chest level. Frequent ambulation is encouraged. Diet: Patient encouraged to increase protein intake while taking caution to avoid high carbohydrate and/or sugar intake. Labs/cultures/imaging: Wound culture positive 03/27/23 and is currently on Doxycycline. Wound culture showed Staph and Strep and he was treated with Keflex based on sensitivities and use topical Gentamicin for 3 weeks. Wound culture done 09/18/23 was positive for staph epidermidis. He has been on cephalexin and doxycycline. XR of foot was negative. MRI negative for osteomyelitis and arterial testing negative for arterial insufficiency. Follow-up: Return in 1 week for wound care follow up due to conflicting schedules. Return sooner or report to the emergency room should symptoms worsen, or new symptoms arise. Note: [facility] speech recognition pressurizer software was used to create portions of this document. Sound-alike and misspelled words, as well as other pressurizer errors may be contained in the documentation.
== END 2023-12-23 23:59 | disposition home or self-care (01) ==
LOC: WC 10:45
PROVIDERS: PCP Family Medicine; Referring Provider Family Medicine; Visit Provider Family Medicine
DX: L89.893 Pressure ulcer of other site, stage 3 (principal); L97.422 Non-pressure chronic ulcer of left heel and midfoot with fat layer exposed; L02.612 Cutaneous abscess of left foot; I10 Essential (primary) hypertension; Z79.899 Other long term (current) drug therapy
CPT/HCPCS: 11042

== ENCOUNTER 2024-01-15 10:30 | Outpatient (RCR) | payer BC, SELFPAY ==
[2023-12-24 00:10] VITALS: BP 127/57; PULSE 76; RESP 18; TEMP 36.3
[2023-12-25 09:45] VITALS: BP 128/64; PULSE 69; RESP 18; TEMP 36.2
--- NOTE | 2023-12-25 13:20 | PCM.WC.PN ---
History of Present Illness Date of Service: 12/25/23 Chief Complaint: nonhealing wound left plantar foot History of Wound: Jose J is a 68 y/o gentleman that presents to the wound healing center for evaluation and treatment of a wound to his left plantar foot. He is a patient of Dr. Giordano. He has had a wound to this same area in February 2019 and was seen at [facility] [place] and treated there for 9 weeks with Aquacel and was placed in a wedge shoe to offload his foot. He was treated for this same wound for almost a year at this wound center and was healed in May 2020 and returned in July and was treated until September. He has undergone vascular testing at [facility] in 2018 but not since that time. 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 He and his did not want to do surgery. He has managed to do well over the last 2 years until the end of October when the area became painful again and began draining. He saw Dr. Giordano and was treated with doxycycline which helped and they had been applying Aquacel that they had from previous treatment but it has not improved. He was treated with a second course of doxycycline and then referred here for treatment. He is still working and walking on his foot in a steel toe boot 4 days a week for 10 hours. He had an offloading pad in his work boot previously but no longer has this in place. He denies claudication with walking. He has moderate to heavy drainage from the ulcer. He has not had any wound cultures taken. 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 He denies fever, chill, nausea, vomiting, redness or odor. Subjective Subjective Jose J returns today for follow up of an ulcer on the bottom of his left foot. His ulcer and swelling of his foot has increased since last visit. He underwent stress test 09/11/23 and will likely need a stent and heart catheterization at some point in the future. He continues to wear his modified work boot to alleviate pressure to the site of the ulcer of his left foot. He has been tolerating the Aquacel Extra to the ulcer. The area is improved but callus continues to form. He has had increased drainage and pain this week. He denies fever, chills or odor. He had MRI on 10/02/23 which did not show any osteomyelitis of his foot. Arterial testing was also done and did not show any evidence of arterial insufficiency. HgbA1C was 6.5% on 10/09/23. Objective Data Objective Data Vital Signs: Vital Signs Temp Pulse Resp BP O2 Del Method 97.2 F L 69 18 128/64 H Room Air 12/25/23 09:45 12/25/23 09:45 12/25/23 09:45 12/25/23 09:45 12/25/23 09:45 Oxygen Delivery Method Room Air Physical Exam Const alert, oriented x3 and no apparent distress General Appearance: cooperative and comfortable HEENT normocephalic and head/scalp atraumatic Resp normal respiratory effort Effort and Inspection: able to speak in complete sentences Auscultation: rales, rhonchi and diminished lung sounds Cardio regular rate and regular rhythm Skin Wounds: wounds noted Wound Narrative: as in clinical panel Psych mental status grossly normal, thought process normal, cooperative and affect normal Debridement Note Debridement Note Wound debrided: left plantar foot ulcer Laterality: Left Type of Debridement: Excisional debridement Anesthesia Used: 4% Lidocaine Solution and 5% Lidocaine Gel Depth: in the subcutaneous layer Percentage of wound debrided: 100 Instrument Used: #15 blade and Forceps Tissue Removed: Yellow slough, devitalized tissue Severity: Fat Layer Exposed Amount of bleeding with debridement: Mild Bleeding Controlled with: Compression and gauze Patient tolerated procedure: Patient tolerated procedure well Post-Debridement Measurements and Additional Note: Post-Debridement Measurements/Treatment - Nurse 1 - General Ulcer Assessment Start: 12/25/23 09:45 Freq: Status: Active Protocol: QUOC.LOWNAIF Activity Type Activity Date Activity User E-sign Co-sign Detail Recorded Client Recorded Date Recorded By Document 12/25/23 09:45 KW bgj 12/25/23 09:59 KW 12/25/23 09:45 - Today's Visit Information Type of service Follow-up Visit (Physician/OPTOMETRIST/PRACTICE OWNER ) Arrival Mode Ambulatory Accompanied by Patient Identification Verified (Name & Yes ) Vital Signs Temperature (97.8 F-99.1 F) 97.2 F L Temperature Source Temporal Pulse Rate (60-100) 69 Pulse Location Monitor Respiratory Rate (12-18) 18 Respiratory rate source Observation Oxygen Delivery Method Room Air Blood Pressure (90/60-120/80) 128/64 H Blood Pressure Mean (mm Hg) 85 Source Monitor Position Semi-Fowlers Blood Pressure Location Left Arm History Since Last Visit- (Skip if this is Patient's initial visit) Have you changed medications since your No last visit? Any new allergies or adverse reactions No Had a fall/change in ADL's that may No increase risk of falls Signs or symptoms of abuse and/or No neglect since last visit Have you been in the hospital since your No last visit? Has dressing in place as prescribed Yes Has compression in place as prescribed N/A Has offloadiing in place as prescribed N/A Experienced any changes in pain level or No management Left Footwear Regular Shoe Right Footwear Regular Shoe Pain Scale: 0-10 Numeric Is Patient Pain Free? Yes WC - Nurse 1 - General Ulcer Measurement Start: 12/25/23 09:45 Freq: Status: Active Protocol: Activity Type Activity Date Activity User E-sign Co-sign Detail Recorded Client Recorded Date Recorded By Document 12/25/23 09:45 KW bgj 12/25/23 09:59 KW 12/25/23 09:45 Wound Center Nurse 1 #3 L Lateral Plantar Foot -Current Size (cm) - Length 0.5 -Current Size (cm) - Width 0.5 -Current Size (cm) - Depth 0.3 -Total Square Cm 0.25 -Date of Last Picture (Recall this 12/25/23 field) -Exudate Amt Small -Exudate Type Serosanguineous -Wound Margin Distinct, Outline Attached -Granulation Amt Large (67-100%) -Granulation Quality Red -Texture (Flory-wound Skin Appearance) Callus -Moisture (Flory-wound Skin Appearance) Assessed -Color (Flory-wound Skin Appearance) Assessed -Temperature (Flory-wound Skin No Abnormality Appearance) (Pt Warm) -Tenderness on Palpation (Flory-wound No Skin Appearance) -Ulcer Cleansing Rinsed/ Irrigated with Saline -Foul Odor after Cleansing No -Anesthetic Used 5% Lidocaine Gel QUOC - Nurse 2 - General Ulcer CM Notes Start: 12/25/23 09:45 Freq: Status: Active Protocol: Activity Type Activity Date Activity User E-sign Co-sign Detail Recorded Client Recorded Date Recorded By Document 12/25/23 10:29 JF 0000 12/25/23 10:43 JF 12/25/23 10:29 Wound Center Nurse 2 -Time 10:30 -Correct Patient Yes -Correct Side, Site, Position Yes -Correct Procedure Yes -Procedure Performed Yes -Type of Procedure Debridement -Clinical Debridement Subcutaneous -Tissue Removed Subcutaneous -Post Debridement (cm) - Length 0.7 -Post Debridement (cm) - Width 1.2 -Post Debridement (cm) - Depth 0.1 -Total Square (Post) (cm) 0.84 -Area of Debridement (cm) - Length 0.7 -Area of Debridement (cm) - Width 1.2 -Total Square (Area) (cm) 0.84 -Tunneling No -Undermining/Tunneling No -Circular Undermining No -Wound/Ulcer Outcome Not Healed -Ulcer Cleansing Rinsed/ Irrigated with Saline -Foul Odor after Cleansing No -Bioengineered Tissue No -Bleeding Controlled with Pressure -Treatment Response Procedure Tolerated Well -Offloading No -Debridement - Subq, 1st 20sq cm Yes Pain Scale: 0-10 Numeric Is Patient Pain Free? Yes - Nurse 3 - General Ulcer D/C NN Start: 12/25/23 09:45 Freq: Status: Active Protocol: Activity Type Activity Date Activity User E-sign Co-sign Detail Recorded Client Recorded Date Recorded By Document 12/25/23 11:04 RB wound 12/25/23 11:04 RB 12/25/23 11:04 Wound Care Center Nurse 3 #3 L Lateral Plantar Foot -Ulcer Cleansing Rinsed/ Irrigated with Saline -Primary Dressing Applied Aquacel Extra -Primary Dressing Covered/Secured with Dry Gauze & Roll Gauze, Secured with Tape -Aquacel Extra 1 Treatment Response Procedure Tolerated Well Pain Scale: 0-10 Numeric Is Patient Pain Free? Yes Teaching: Wound Center Dressing Your Wound -Person Taught Patient, Significant Other -Teaching Method Discussion, Demonstration -Response to teaching Verbalize Understanding WC - Visit Discharge Discharge Condition Stable Ambulatory Status Ambulatory Transportation Private Auto Medication Reconcilliation completed & No provided to patient/care provider Clinical Summary of Care Provided Yes Assessment/Plan Assessment/Plan (1) Abscess of left foot excluding toes: CODE(S): L02.612 - Cutaneous abscess of left foot (2) Delayed wound healing: CODE(S): T14.8XXD - Other injury of unspecified body region, subsequent encounter (3) Chronic ulcer of left foot with fat layer exposed: CODE(S): L97.522 - Non-pressure chronic ulcer of other part of left foot with fat layer exposed (4) HTN (hypertension): CODE(S): I10 - Essential (primary) hypertension QUALIFIERS: Hypertension type: primary hypertension Qualified Code(s): I10 - Essential (primary) hypertension (5) Pressure ulcer of left foot, stage 3: CODE(S): L89.893 - Pressure ulcer of other site, stage 3 PLAN: Plan Debridement performed today in clinic as annotated above. There has been improvement since his last visit. At home wound-care instructions: Wash ulcer daily with antibacterial soap and water. Will continue Aquacel Extra to ulcer and cover with gauze and roll gauze to secure daily. Keep dressing clean and dry. His work boot was modified on 07/03/23 and again today 12/25/23 to try to offload pressure. Will have him use single layer tubigrip medium compression to left LE. Discussed possibly using TCC for offloading in near future but he is unable to do so due to work. We also discussed that there may be a single vessel narrowing that could be preventing healing and talked about possible referral to Vascular surgery to CTA runoff. Also discussed surgical procedure proposed by podiatry to shave exostosis of bone that is likely causing ulcer and he declines at this time. Off-loading: The patient was instructed to avoid pressure and friction on the affected areas. Reposition every 2 hours at minimum. Avoid prolonged standing and/or dangling of legs. When seated, feet should be elevated at chest level. Frequent ambulation is encouraged. Diet: Patient encouraged to increase protein intake while taking caution to avoid high carbohydrate and/or sugar intake. Labs/cultures/imaging: Wound culture positive 03/27/23 and is currently on Doxycycline. Wound culture showed Staph and Strep and he was treated with Keflex based on sensitivities and use topical Gentamicin for 3 weeks. Wound culture done 09/18/23 was positive for staph epidermidis. He has been on cephalexin and doxycycline. Wound culture taken again today. XR of foot was negative. MRI negative for osteomyelitis and arterial testing negative for arterial insufficiency. Follow-up: Return in 3 weeks for wound care follow up due to conflicting schedules. Return sooner or report to the emergency room should symptoms worsen, or new symptoms arise. Note: [employer] speech recognition data control clerk software was used to create portions of this document. Sound-alike and misspelled words, as well as other data control clerk errors may be contained in the documentation.
--- NOTE | 2023-12-28 09:52 | WC ---
PHOTO 12/25/23 LEFT LATERAL PLANTAR
--- NOTE | 2023-12-28 09:54 | WC ---
PHOTO 12/25/23 [facility]
[2024-01-15 09:57] VITALS: BP 135/73; PULSE 73; RESP 18; TEMP 36.1
--- NOTE | 2024-01-15 13:25 | PCM.WC.PN ---
History of Present Illness Date of Service: 01/15/24 Chief Complaint: nonhealing wound left plantar foot History of Wound: Jose J is a 68 y/o gentleman that presents to the wound healing center for evaluation and treatment of a wound to his left plantar foot. He is a patient of Dr. Giordano. He has had a wound to this same area in February 2019 and was seen at [facility] [place] and treated there for 9 weeks with Aquacel and was placed in a wedge shoe to offload his foot. He was treated for this same wound for almost a year at this wound center and was healed in May 2020 and returned in July and was treated until September. He has undergone vascular testing at [facility] in 2018 but not since that time. 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 He and his did not want to do surgery. He has managed to do well over the last 2 years until the end of October when the area became painful again and began draining. He saw Dr. Giordano and was treated with doxycycline which helped and they had been applying Aquacel that they had from previous treatment but it has not improved. He was treated with a second course of doxycycline and then referred here for treatment. He is still working and walking on his foot in a steel toe boot 4 days a week for 10 hours. He had an offloading pad in his work boot previously but no longer has this in place. He denies claudication with walking. He has moderate to heavy drainage from the ulcer. He has not had any wound cultures taken. 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 He denies fever, chill, nausea, vomiting, redness or odor. Subjective Subjective Jose J returns today for follow up of an ulcer on the bottom of his left foot. His ulcer and swelling of his foot has increased since last visit. He underwent stress test 09/11/23 and will likely need a stent and heart catheterization at some point in the future. He continues to wear his modified work boot to alleviate pressure to the site of the ulcer of his left foot. He has been tolerating the Aquacel Extra to the ulcer. The area is improved but callus continues to form. He has had increased drainage and pain this week. He denies fever, chills or odor. He had MRI on 10/02/23 which did not show any osteomyelitis of his foot. Arterial testing was also done and did not show any evidence of arterial insufficiency. HgbA1C was 6.5% on 10/09/23. Objective Data Objective Data Vital Signs: Vital Signs Temp Pulse Resp BP O2 Del Method 97.0 F L 73 18 135/73 H Room Air 01/15/24 09:57 01/15/24 09:57 01/15/24 09:57 01/15/24 09:57 01/15/24 09:57 Oxygen Delivery Method Room Air Lab / Micro Data Micro: Microbiology 12/25/23 10:41 Wound - Left Foot Gram Stain - Final 12/25/23 10:41 Wound - Left Foot Wound Culture - Final Enterococcus faecalis Staphylococcus epidermidis 12/25/23 10:41 Wound - Left Foot Anaerobic Culture - Final No anaerobic bacteria isolated. Physical Exam Const alert, oriented x3 and no apparent distress General Appearance: cooperative and comfortable HEENT normocephalic and head/scalp atraumatic Resp normal respiratory effort Effort and Inspection: able to speak in complete sentences Auscultation: rales, rhonchi and diminished lung sounds Cardio regular rate and regular rhythm Skin Wounds: wounds noted Wound Narrative: as in clinical panel Psych mental status grossly normal, thought process normal, cooperative and affect normal Debridement Note Debridement Note Post-Debridement Measurements and Additional Note: Post-Debridement Measurements/Treatment - Nurse 1 - General Ulcer Assessment Start: 12/25/23 09:45 Freq: Status: Active Protocol: KANIKA Activity Type Activity Date Activity User E-sign Co-sign Detail Recorded Client Recorded Date Recorded By Document 12/25/23 09:45 KW bgj 12/25/23 09:59 KW Document 01/15/24 09:57 KW [id number] 01/15/24 10:06 KW 12/25/23 01/15/24 09:45 09:57 - Today's Visit Information Type of service Follow-up Visit Follow-up Visit (Physician/LIME SPREADER (Physician/LIME SPREADER ) ) Arrival Mode Ambulatory Ambulatory Accompanied by Patient Identification Verified (Name & Yes Yes ) Vital Signs Temperature (97.8 F-99.1 F) 97.2 F L 97.0 F L Temperature Source Temporal Temporal Pulse Rate (60-100) 69 73 Pulse Location Monitor Monitor Respiratory Rate (12-18) 18 18 Respiratory rate source Observation Observation Oxygen Delivery Method Room Air Room Air Blood Pressure (90/60-120/80) 128/64 H 135/73 H Blood Pressure Mean (mm Hg) 85 93 Source Monitor Monitor Position Semi-Fowlers Semi-Fowlers Blood Pressure Location Left Arm Left Arm History Since Last Visit- (Skip if this is Patient's initial visit) Have you changed medications since your No No last visit? Any new allergies or adverse reactions No No Had a fall/change in ADL's that may No No increase risk of falls Signs or symptoms of abuse and/or No No neglect since last visit Have you been in the hospital since your No No last visit? Has dressing in place as prescribed Yes Yes Has compression in place as prescribed N/A N/A Has offloadiing in place as prescribed N/A N/A Experienced any changes in pain level or No No management Left Footwear Regular Shoe Regular Shoe Right Footwear Regular Shoe Regular Shoe Pain Scale: 0-10 Numeric Is Patient Pain Free? Yes Yes - Nurse 1 - General Ulcer Measurement Start: 12/25/23 09:45 Freq: Status: Active Protocol: Activity Type Activity Date Activity User E-sign Co-sign Detail Recorded Client Recorded Date Recorded By Document 12/25/23 09:45 KW bgj 12/25/23 09:59 KW Document 01/15/24 09:57 KW [id number] 01/15/24 10:06 KW 12/25/23 01/15/24 09:45 09:57 Wound Center Nurse 1 #3 L Lateral Plantar Foot -Current Size (cm) - Length 0.5 0.6 -Current Size (cm) - Width 0.5 0.4 -Current Size (cm) - Depth 0.3 0.2 -Total Square Cm 0.25 0.24 -Date of Last Picture (Recall this 12/25/23 field) -Exudate Amt Small Small -Exudate Type Serosanguineous Serosanguineous -Wound Margin Distinct, Distinct, Outline Outline Attached Attached -Granulation Amt Large (67-100%) Large (67-100%) -Granulation Quality Red Red -Necrosis Amt Medium (34-66%) -Necrotic Tissue Type Adherent Slough -Texture (Flory-wound Skin Appearance) Callus Assessed -Moisture (Flory-wound Skin Appearance) Assessed Assessed -Color (Flory-wound Skin Appearance) Assessed Assessed -Temperature (Flory-wound Skin No Abnormality No Abnormality Appearance) (Pt Warm) (Pt Warm) -Tenderness on Palpation (Flory-wound No No Skin Appearance) -Ulcer Cleansing Rinsed/ Rinsed/ Irrigated with Irrigated with Saline Saline -Foul Odor after Cleansing No No -Anesthetic Used 5% Lidocaine 5% Lidocaine Gel Gel -Wound Comment(s) BLISTER HAS FORMED PROXIMAL TO ULCER WC - Nurse 2 - General Ulcer CM Notes Start: 12/25/23 09:45 Freq: Status: Active Protocol: Activity Type Activity Date Activity User E-sign Co-sign Detail Recorded Client Recorded Date Recorded By Document 12/25/23 10:29 JF 0000 12/25/23 10:43 Document 01/15/24 10:12 [id number] 01/15/24 10:39 12/25/23 01/15/24 10:29 10:12 Wound Center Nurse 2 #4 LEFT DISTAL PLANTAR -Time 10:34 -Correct Patient Yes -Correct Side, Site, Position Yes -Correct Procedure Yes -Procedure Performed Yes -Type of Procedure Debridement -Clinical Debridement Subcutaneous -Tissue Removed Subcutaneous -Post Debridement (cm) - Length 0.9 -Post Debridement (cm) - Width 0.8 -Post Debridement (cm) - Depth 0.1 -Total Square (Post) (cm) 0.72 -Area of Debridement (cm) - Length 0.9 -Area of Debridement (cm) - Width 0.8 -Total Square (Area) (cm) 0.72 -Tunneling No -Undermining/Tunneling No -Circular Undermining No -Wound/Ulcer Outcome Not Healed -Ulcer Cleansing Rinsed/ Irrigated with Saline -Foul Odor after Cleansing No -Bioengineered Tissue No -Bleeding Controlled with Pressure -Treatment Response Procedure Tolerated Well -Debridement - Subq, 1st 20sq cm No #3 L Lateral Plantar Foot -Time 10:30 10:12 -Correct Patient Yes Yes -Correct Side, Site, Position Yes Yes -Correct Procedure Yes Yes -Procedure Performed Yes Yes -Type of Procedure Debridement Debridement -Clinical Debridement Subcutaneous Subcutaneous -Tissue Removed Subcutaneous Subcutaneous -Post Debridement (cm) - Length 0.7 0.9 -Post Debridement (cm) - Width 1.2 0.7 -Post Debridement (cm) - Depth 0.1 0.1 -Total Square (Post) (cm) 0.84 0.63 -Area of Debridement (cm) - Length 0.7 0.9 -Area of Debridement (cm) - Width 1.2 0.7 -Total Square (Area) (cm) 0.84 0.63 -Tunneling No No -Undermining/Tunneling No No -Circular Undermining No No -Wound/Ulcer Outcome Not Healed Not Healed -Ulcer Cleansing Rinsed/ Rinsed/ Irrigated with Irrigated with Saline Saline -Foul Odor after Cleansing No No -Bioengineered Tissue No No -Bleeding Controlled with Pressure Pressure -Treatment Response Procedure Procedure Tolerated Well Tolerated Well -Offloading No -Debridement - Subq, 1st 20sq cm Yes Yes Pain Scale: 0-10 Numeric Is Patient Pain Free? Yes Yes - Nurse 3 - General Ulcer D/C NN Start: 12/25/23 09:45 Freq: Status: Active Protocol: Activity Type Activity Date Activity User E-sign Co-sign Detail Recorded Client Recorded Date Recorded By Document 12/25/23 11:04 RB wound 12/25/23 11:04 RB Document 01/15/24 10:41 KW [id number] 01/15/24 10:42 KW 12/25/23 01/15/24 11:04 10:41 Wound Care Center Nurse 3 #4 LEFT DISTAL PLANTAR -Primary Dressing Applied Aquacel Extra -Primary Dressing Covered/Secured with Dry Gauze -Aquacel Extra 1 #3 L Lateral Plantar Foot -Ulcer Cleansing Rinsed/ Irrigated with Saline -Primary Dressing Applied Aquacel Extra -Other Dressing AQUACEL EXTRA -Primary Dressing Covered/Secured with Dry Gauze & Dry Gauze, Roll Gauze, Secured with Secured with Tape Tape -Aquacel Extra 1 Treatment Response Procedure Tolerated Well Pain Scale: 0-10 Numeric Is Patient Pain Free? Yes Yes Teaching: Wound Center Dressing Your Wound -Person Taught Patient, Significant Other -Teaching Method Discussion, Demonstration -Response to teaching Verbalize Understanding WC - Visit Discharge Discharge Condition Stable Stable Ambulatory Status Ambulatory Ambulatory Transportation Private Auto Private Auto Accompanied by Medication Reconcilliation completed & No No provided to patient/care provider Clinical Summary of Care Provided Yes Yes Assessment/Plan Assessment/Plan (1) Abscess of left foot excluding toes: CODE(S): L02.612 - Cutaneous abscess of left foot (2) Delayed wound healing: CODE(S): T14.8XXD - Other injury of unspecified body region, subsequent encounter (3) Chronic ulcer of left foot with fat layer exposed: CODE(S): L97.522 - Non-pressure chronic ulcer of other part of left foot with fat layer exposed (4) HTN (hypertension): CODE(S): I10 - Essential (primary) hypertension QUALIFIERS: Hypertension type: primary hypertension Qualified Code(s): I10 - Essential (primary) hypertension (5) Pressure ulcer of left foot, stage 3: CODE(S): L89.893 - Pressure ulcer of other site, stage 3 PLAN: Plan Debridement performed today in clinic as annotated above. There has been improvement since his last visit. At home wound-care instructions: Wash ulcer daily with antibacterial soap and water. Will continue Aquacel Extra to ulcers and cover with gauze and roll gauze to secure daily. Keep dressing clean and dry. His work boot was modified on 07/03/23 and again 12/25/23 to try to offload pressure. Will have him use single layer tubigrip medium compression to left LE. Discussed possibly using TCC for offloading in near future but he is unable to do so due to work. We also discussed that there may be a single vessel narrowing that could be preventing healing and talked about possible referral to Vascular surgery to CTA runoff. Also discussed surgical procedure proposed by podiatry to shave exostosis of bone that is likely causing ulcer and he declines at this time. Off-loading: The patient was instructed to avoid pressure and friction on the affected areas. Reposition every 2 hours at minimum. Avoid prolonged standing and/or dangling of legs. When seated, feet should be elevated at chest level. Frequent ambulation is encouraged. Diet: Patient encouraged to increase protein intake while taking caution to avoid high carbohydrate and/or sugar intake. Labs/cultures/imaging: Wound culture positive 03/27/23 and is currently on Doxycycline. Wound culture showed Staph and Strep and he was treated with Keflex based on sensitivities and use topical Gentamicin for 3 weeks. Wound culture done 09/18/23 was positive for staph epidermidis. He has been on cephalexin and doxycycline. Wound culture was positive for Enterococcus and he has not started Linezolid yet. A second culture was taken today of the new area distal to his previous longstanding ulcer. Will have him start Linezolid tonight. XR of foot was negative. MRI negative for osteomyelitis and arterial testing negative for arterial insufficiency. Follow-up: Return in 2 weeks for wound care follow up due to conflicting schedules. Return sooner or report to the emergency room should symptoms worsen, or new symptoms arise. Note: [employer] speech recognition general practitioner software was used to create portions of this document. Sound-alike and misspelled words, as well as other general practitioner errors may be contained in the documentation.
== END 2024-01-23 23:59 | disposition home or self-care (01) ==
LOC: WC 10:30
PROVIDERS: PCP Family Medicine; Referring Provider Family Medicine; Visit Provider Family Medicine
DX: L89.893 Pressure ulcer of other site, stage 3 (principal); L97.522 Non-pressure chronic ulcer of other part of left foot with fat layer exposed; L02.612 Cutaneous abscess of left foot; I10 Essential (primary) hypertension; Z79.899 Other long term (current) drug therapy
CPT/HCPCS: 11042; 87070; 87075; 87077; 87186; 87205

== ENCOUNTER 2024-02-12 10:00 | Outpatient (RCR) | payer BC, SELFPAY ==
[2024-01-24 00:13] VITALS: BP 127/57; PULSE 76; RESP 18; TEMP 36.3
[2024-01-29 10:01] VITALS: BP 117/65; PULSE 75; RESP 18; TEMP 36.4
--- NOTE | 2024-01-29 14:53 | PN.PCM_ITS ---
History of Present Illness Date of Service: 01/29/24 Chief Complaint: nonhealing wound left plantar foot History of Wound: Jose J is a 68 y/o gentleman that presents to the wound healing center for evaluation and treatment of a wound to his left plantar foot. He is a patient of Dr. Giordano. He has had a wound to this same area in February 2019 and was seen at [facility] and treated there for 9 weeks with Aquacel and was placed in a wedge shoe to offload his foot. He was treated for this same wound for almost a year at this wound center and was healed in May 2020 and returned in July and was treated until September. He has undergone vascular testing at [facility] in 2018 but not since that time. 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 He and his did not want to do surgery. He has managed to do well over the last 2 years until the end of October when the area became painful again and began draining. He saw Dr. Giordano and was treated with doxycycline which helped and they had been applying Aquacel that they had from previous treatment but it has not improved. He was treated with a second course of doxycycline and then referred here for treatment. He is still working and walking on his foot in a steel toe boot 4 days a week for 10 hours. He had an offloading pad in his work boot previously but no longer has this in place. He denies claudication with walking. He has moderate to heavy drainage from the ulcer. He has not had any wound cultures taken. 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 He denies fever, chill, nausea, vomiting, redness or odor. Subjective Subjective Jose J returns today for follow up of an ulcer on the bottom of his left foot. His ulcer and swelling of his foot has increased since last visit. He underwent stress test 09/11/23 and will likely need a stent and heart catheterization at some point in the future. He continues to wear his modified work boot to alleviate pressure to the site of the ulcer of his left foot. He has been tolerating the Aquacel Extra to the ulcer. The area is improved but callus continues to form. He has had increased drainage and pain this week. He denies fever, chills or odor. He had MRI on 10/02/23 which did not show any osteomyelitis of his foot. Arterial testing was also done and did not show any evidence of arterial insufficiency. HgbA1C was 6.5% on 10/09/23. Objective Data Objective Data Vital Signs: Vital Signs Temp Pulse Resp BP O2 Del Method 97.5 F L 75 18 117/65 Room Air 01/29/24 10:01/29/24 10:01/29/24 10:01/29/24 10:01/29/24 10:01 Oxygen Delivery Method Room Air Physical Exam Const alert, oriented x3 and no apparent distress General Appearance: cooperative and comfortable HEENT normocephalic and head/scalp atraumatic Resp normal respiratory effort Effort and Inspection: able to speak in complete sentences Auscultation: rales, rhonchi and diminished lung sounds Cardio regular rate and regular rhythm Skin Wounds: wounds noted Wound Narrative: as in clinical panel Psych mental status grossly normal, thought process normal, cooperative and affect normal Debridement Note Debridement Note Wound debrided: left distal plantar Laterality: Left Type of Debridement: Excisional debridement Anesthesia Used: 4% Lidocaine Solution and 5% Lidocaine Gel Depth: Down to and including healthy tissue and in the subcutaneous layer Percentage of wound debrided: 100 Instrument Used: #15 blade and Forceps Tissue Removed: Yellow slough, devitalized tissue Severity: Fat Layer Exposed Amount of bleeding with debridement: Mild Bleeding Controlled with: Compression and gauze Patient tolerated procedure: Patient tolerated procedure well Post-Debridement Measurements and Additional Note: Post-Debridement Measurements/Treatment - Nurse 1 - General Ulcer Assessment Start: 01/29/24 10:01 Freq: Status: Active Protocol: QUOC.LOWEXT Activity Type Activity Date Activity User E-sign Co-sign Detail Recorded Client Recorded Date Recorded By Document 01/29/24 10:01 NICOLÁS [id number] 01/29/24 10:08 NICOLÁS 01/29/24 10:01 - Today's Visit Information Type of service Follow-up Visit (Physician/CRIMINAL INTELLIGENCE ANALYST ) Arrival Mode Ambulatory Accompanied by Patient Identification Verified (Name & Yes ) Vital Signs Temperature (97.8 F-99.1 F) 97.5 F L Temperature Source Temporal Pulse Rate (60-100) 75 Pulse Location Monitor Respiratory Rate (12-18) 18 Respiratory rate source Observation Oxygen Delivery Method Room Air Blood Pressure (90/60-120/80) 117/65 Blood Pressure Mean (mm Hg) 82 Source Monitor Position Semi-Fowlers Blood Pressure Location Left Arm History Since Last Visit- (Skip if this is Patient's initial visit) Have you changed medications since your No last visit? Any new allergies or adverse reactions No Had a fall/change in ADL's that may No increase risk of falls Signs or symptoms of abuse and/or No neglect since last visit Have you been in the hospital since your No last visit? Has dressing in place as prescribed Yes Has compression in place as prescribed Yes Has offloadiing in place as prescribed N/A Experienced any changes in pain level or No management Left Footwear Regular Shoe Right Footwear Regular Shoe Pain Scale: 0-10 Numeric Is Patient Pain Free? Yes WC - Nurse 1 - General Ulcer Measurement Start: 01/29/24 10:01 Freq: Status: Active Protocol: Activity Type Activity Date Activity User E-sign Co-sign Detail Recorded Client Recorded Date Recorded By Document 01/29/24 10:01 NICOLÁS [id number] 01/29/24 10:08 NICOLÁS 01/29/24 10:01 Wound Center Nurse 1 #4 LEFT DISTAL PLANTAR -Current Size (cm) - Length 0.6 -Current Size (cm) - Width 0.5 -Current Size (cm) - Depth 0.3 -Total Square Cm 0.30 -Exudate Amt Small -Exudate Type Serosanguineous -Wound Margin Distinct, Outline Attached -Granulation Amt Large (67-100%) -Granulation Quality Red -Necrosis Amt Small (1-33%) -Texture (Flory-wound Skin Appearance) Assessed -Moisture (Flory-wound Skin Appearance) Assessed -Color (Flory-wound Skin Appearance) Assessed -Temperature (Flory-wound Skin No Abnormality Appearance) (Pt Warm) -Tenderness on Palpation (Flory-wound No Skin Appearance) -Ulcer Cleansing Rinsed/ Irrigated with Saline -Foul Odor after Cleansing No -Anesthetic Used 5% Lidocaine Gel #3 L Lateral Plantar Foot -Current Size (cm) - Length 0.1 -Current Size (cm) - Width 0.1 -Current Size (cm) - Depth 0.1 -Total Square Cm 0.01 -Exudate Amt None Present -Texture (Flory-wound Skin Appearance) Assessed -Moisture (Flory-wound Skin Appearance) Assessed -Color (Flory-wound Skin Appearance) Assessed -Temperature (Flory-wound Skin No Abnormality Appearance) (Pt Warm) -Tenderness on Palpation (Flory-wound No Skin Appearance) -Ulcer Cleansing Rinsed/ Irrigated with Saline -Foul Odor after Cleansing No -Anesthetic Used 5% Lidocaine Gel -Wound Comment(s) scabbed WC - Nurse 2 - General Ulcer CM Notes Start: 01/29/24 10:01 Freq: Status: Active Protocol: Activity Type Activity Date Activity User E-sign Co-sign Detail Recorded Client Recorded Date Recorded By Document 01/29/24 10:44 [id number] 01/29/24 10:59 GM 01/29/24 10:44 Wound Center Nurse 2 #4 LEFT DISTAL PLANTAR -Time 10:44 -Correct Patient Yes -Correct Side, Site, Position Yes -Correct Procedure Yes -Procedure Performed Yes -Type of Procedure Debridement -Clinical Debridement Subcutaneous -Tissue Removed Subcutaneous -Post Debridement (cm) - Length 0.3 -Post Debridement (cm) - Width 0.6 -Post Debridement (cm) - Depth 0.2 -Total Square (Post) (cm) 0.18 -Area of Debridement (cm) - Length 0.3 -Area of Debridement (cm) - Width 0.6 -Total Square (Area) (cm) 0.18 -Tunneling No -Undermining/Tunneling No -Circular Undermining No -Wound/Ulcer Outcome Not Healed -Ulcer Cleansing Rinsed/ Irrigated with Saline -Foul Odor after Cleansing No -Bioengineered Tissue No -Bleeding Controlled with Pressure -Treatment Response Procedure Tolerated Well -Debridement - Subq, 1st 20sq cm No #3 L Lateral Plantar Foot -Time 10:46 -Correct Patient Yes -Correct Side, Site, Position Yes -Correct Procedure Yes -Procedure Performed Yes -Type of Procedure Debridement -Clinical Debridement Subcutaneous -Tissue Removed Subcutaneous -Post Debridement (cm) - Length 0.8 -Post Debridement (cm) - Width 0.6 -Post Debridement (cm) - Depth 0.1 -Total Square (Post) (cm) 0.48 -Area of Debridement (cm) - Length 0.8 -Area of Debridement (cm) - Width 0.6 -Total Square (Area) (cm) 0.48 -Tunneling No -Undermining/Tunneling No -Circular Undermining No -Wound/Ulcer Outcome Not Healed -Ulcer Cleansing Rinsed/ Irrigated with Saline -Foul Odor after Cleansing No -Bioengineered Tissue No -Bleeding Controlled with Pressure -Treatment Response Procedure Tolerated Well -Debridement - Subq, 1st 20sq cm Yes Pain Scale: 0-10 Numeric Is Patient Pain Free? Yes WC - Nurse 3 - General Ulcer D/C NN Start: 01/29/24 10:01 Freq: Status: Active Protocol: Activity Type Activity Date Activity User E-sign Co-sign Detail Recorded Client Recorded Date Recorded By Document 01/29/24 11:09 [id number] 01/29/24 11:10 KW 01/29/24 11:09 Wound Care Center Nurse 3 #4 LEFT DISTAL PLANTAR -Primary Dressing Applied Aquacel Extra -Primary Dressing Covered/Secured with Dry Gauze & Roll Gauze, Secured with Tape -Aquacel Extra 1 #3 L Lateral Plantar Foot -Primary Dressing Covered/Secured with Dry Gauze Pain Scale: 0-10 Numeric Is Patient Pain Free? Yes Additional Wound Wound debrided: left lateral plantar Laterality: Left Type of Debridement: Selective debridement Anesthesia Used: 4% Lidocaine Solution and 5% Lidocaine Gel Depth: Down to and including healthy tissue and in the subcutaneous layer Percentage of wound debrided: 100 Instrument Used: #15 blade and Forceps Tissue Removed: Yellow slough, devitalized tissue Severity: Fat Layer Exposed Amount of bleeding with debridement: Mild Bleeding Controlled with: Compression and gauze Patient tolerated procedure: Patient tolerated procedure well Assessment/Plan Assessment/Plan (1) Abscess of left foot excluding toes: CODE(S): L02.612 - Cutaneous abscess of left foot (2) Delayed wound healing: CODE(S): T14.8XXD - Other injury of unspecified body region, subsequent encounter (3) Chronic ulcer of left foot with fat layer exposed: CODE(S): L97.522 - Non-pressure chronic ulcer of other part of left foot with fat layer exposed (4) HTN (hypertension): CODE(S): I10 - Essential (primary) hypertension (5) Pressure ulcer of left foot, stage 3: CODE(S): L89.893 - Pressure ulcer of other site, stage 3 PLAN: Plan Debridement performed today in clinic as annotated above. There has been improvement since his last visit. At home wound-care instructions: Wash ulcer daily with antibacterial soap and water. Will continue Aquacel Extra to ulcers and cover with gauze and roll gauze to secure daily. Keep dressing clean and dry. His work boot was modified on 07/03/23 and again 12/25/23 to try to offload pressure. Will have him use single layer tubigrip medium compression to left LE. Discussed possibly using TCC for offloading in near future but he is unable to do so due to work. We also discussed that there may be a single vessel narrowing that could be preventing healing and talked about possible referral to Vascular surgery to CTA runoff. Also discussed surgical procedure proposed by podiatry to shave exostosis of bone that is likely causing ulcer and he declines at this time. Off-loading: The patient was instructed to avoid pressure and friction on the affected areas. Reposition every 2 hours at minimum. Avoid prolonged standing and/or dangling of legs. When seated, feet should be elevated at chest level. Frequent ambulation is encouraged. Diet: Patient encouraged to increase protein intake while taking caution to avoid high carbohydrate and/or sugar intake. Labs/cultures/imaging: Wound culture positive 03/27/23 and is currently on Doxycycline. Wound culture showed Staph and Strep and he was treated with Keflex based on sensitivities and use topical Gentamicin for 3 weeks. Wound culture done 09/18/23 was positive for staph epidermidis. He has been on cephalexin and doxycycline. Wound culture was positive for Enterococcus and he has not started Linezolid yet. A second culture was taken today of the new area distal to his previous longstanding ulcer. Will have him start Linezolid tonight. XR of foot was negative. MRI negative for osteomyelitis and arterial testing negative for arterial insufficiency. Follow-up: Return in 2 weeks for wound care follow up due to conflicting schedules. Return sooner or report to the emergency room should symptoms worsen, or new symptoms arise. Note: [employer] speech recognition storage facility housekeeper software was used to create portions of this document. Sound-alike and misspelled words, as well as other storage facility housekeeper errors may be contained in the documentation.
[2024-02-12 09:58] VITALS: BP 162/63; PULSE 74; RESP 18; TEMP 36.3
--- NOTE | 2024-02-12 13:35 | PCM.WC.PN ---
History of Present Illness Date of Service: 02/12/24 Chief Complaint: nonhealing wound left plantar foot History of Wound: Jose J is a 68 y/o gentleman that presents to the wound healing center for evaluation and treatment of a wound to his left plantar foot. He is a patient of Dr. Giordano. He has had a wound to this same area in February 2019 and was seen at [facility] [place] and treated there for 9 weeks with Aquacel and was placed in a wedge shoe to offload his foot. He was treated for this same wound for almost a year at this wound center and was healed in May 2020 and returned in July and was treated until September. He has undergone vascular testing at [facility] in 2018 but not since that time. 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 He and his did not want to do surgery. He has managed to do well over the last 2 years until the end of October when the area became painful again and began draining. He saw Dr. Giordano and was treated with doxycycline which helped and they had been applying Aquacel that they had from previous treatment but it has not improved. He was treated with a second course of doxycycline and then referred here for treatment. He is still working and walking on his foot in a steel toe boot 4 days a week for 10 hours. He had an offloading pad in his work boot previously but no longer has this in place. He denies claudication with walking. He has moderate to heavy drainage from the ulcer. He has not had any wound cultures taken. 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 He denies fever, chill, nausea, vomiting, redness or odor. Subjective Subjective Jose J returns today for follow up of an ulcer on the bottom of his left foot. His ulcer and swelling of his foot has decreased since last visit. He continues to wear his modified work boot to alleviate pressure to the site of the ulcer of his left foot. He has been tolerating the Aquacel Extra to the ulcer. The area is improved but callus continues to form. He has had decreased drainage. He denies fever, chills or odor. He had MRI on 10/02/23 which did not show any osteomyelitis of his foot. Arterial testing was also done and did not show any evidence of arterial insufficiency. HgbA1C was 6.5% on 10/09/23. Objective Data Objective Data Vital Signs: Vital Signs Temp Pulse Resp BP O2 Del Method 97.4 F L 74 18 162/63 H Room Air 02/12/24 09:58 02/12/24 09:58 02/12/24 09:58 02/12/24 09:58 01/29/24 10:01 Oxygen Delivery Method Room Air Physical Exam Const alert, oriented x3 and no apparent distress General Appearance: cooperative and comfortable HEENT normocephalic and head/scalp atraumatic Resp normal respiratory effort Effort and Inspection: able to speak in complete sentences Auscultation: rales, rhonchi and diminished lung sounds Cardio regular rate and regular rhythm Skin Wounds: wounds noted Wound Narrative: as in clinical panel Psych mental status grossly normal, thought process normal, cooperative and affect normal Debridement Note Debridement Note Wound debrided: left distal plantar Laterality: Left Type of Debridement: Excisional debridement Anesthesia Used: 4% Lidocaine Solution and 5% Lidocaine Gel Depth: Down to and including healthy tissue and in the subcutaneous layer Percentage of wound debrided: 100 Instrument Used: #15 blade and Forceps Tissue Removed: Yellow slough, devitalized tissue Severity: Fat Layer Exposed Amount of bleeding with debridement: Mild Bleeding Controlled with: Compression and gauze Patient tolerated procedure: Patient tolerated procedure well Post-Debridement Measurements and Additional Note: Post-Debridement Measurements/Treatment QUOC - Nurse 1 - General Ulcer Assessment Start: 01/29/24 10:01 Freq: Status: Active Protocol: KANIKA Activity Type Activity Date Activity User E-sign Co-sign Detail Recorded Client Recorded Date Recorded By Document 01/29/24 10:01 KW [id number] 01/29/24 10:08 KW Document 02/12/24 09:58 RB [id number] 02/12/24 10:06 RB 01/29/24 02/12/24 10:01 09:58 - Today's Visit Information Type of service Follow-up Visit Follow-up Visit (Physician/DECORATING INSTRUCTOR (Physician/DECORATING INSTRUCTOR ) ) Arrival Mode Ambulatory Ambulatory Transfer Assistance None Accompanied by Patient Identification Verified (Name & Yes Yes ) Patient Requires Transmission-Based No Precautions Vital Signs Temperature (97.8 F-99.1 F) 97.5 F L 97.4 F L Temperature Source Temporal Temporal Pulse Rate (60-100) 75 74 Pulse Location Monitor Monitor Respiratory Rate (12-18) 18 18 Respiratory rate source Observation Observation Oxygen Delivery Method Room Air Blood Pressure (90/60-120/80) 117/65 162/63 H Blood Pressure Mean (mm Hg) 82 96 Source Monitor Monitor Position Semi-Fowlers Semi-Fowlers Blood Pressure Location Left Arm Left Arm History Since Last Visit- (Skip if this is Patient's initial visit) Have you changed medications since your No No last visit? Any new allergies or adverse reactions No No Had a fall/change in ADL's that may No No increase risk of falls Signs or symptoms of abuse and/or No No neglect since last visit Have you been in the hospital since your No No last visit? Has dressing in place as prescribed Yes No Has compression in place as prescribed Yes Yes Has offloadiing in place as prescribed N/A No Experienced any changes in pain level or No No management Left Footwear Regular Shoe Right Footwear Regular Shoe Pain Scale: 0-10 Numeric Is Patient Pain Free? Yes Yes - Nurse 1 - General Ulcer Measurement Start: 01/29/24 10:01 Freq: Status: Active Protocol: Activity Type Activity Date Activity User E-sign Co-sign Detail Recorded Client Recorded Date Recorded By Document 01/29/24 10:01 KW [id number] 01/29/24 10:08 KW Document 02/12/24 09:58 RB [id number] 02/12/24 10:06 RB 01/29/24 02/12/24 10:01 09:58 Wound Center Nurse 1 #4 LEFT DISTAL PLANTAR -Combined with other wound No -Current Size (cm) - Length 0.6 0.1 -Current Size (cm) - Width 0.5 0.1 -Current Size (cm) - Depth 0.3 0.1 -Total Square Cm 0.30 0.01 -Tunneling No -Undermining/Tunneling No -Circular Undermining No -Exudate Amt Small Medium -Exudate Type Serosanguineous Serosanguineous -Wound Margin Distinct, Thickened Outline Attached -Granulation Amt Large (67-100%) Medium (34-66%) -Granulation Quality Red [place] -Slough/Fibrin Yes -Necrosis Amt Small (1-33%) Medium (34-66%) -Necrotic Tissue Type Adherent Slough -Structure Exposed N/A -Texture (Flory-wound Skin Appearance) Assessed Assessed -Moisture (Flory-wound Skin Appearance) Assessed Assessed -Color (Flory-wound Skin Appearance) Assessed Assessed -Temperature (Flory-wound Skin No Abnormality No Abnormality Appearance) (Pt Warm) (Pt Warm) -Tenderness on Palpation (Flory-wound No No Skin Appearance) -Ulcer Cleansing Rinsed/ Rinsed/ Irrigated with Irrigated with Saline Saline -Foul Odor after Cleansing No No -Anesthetic Used 5% Lidocaine 5% Lidocaine Gel Gel #3 L Lateral Plantar Foot -Combined with other wound No -Current Size (cm) - Length 0.1 0.5 -Current Size (cm) - Width 0.1 0.4 -Current Size (cm) - Depth 0.1 0.1 -Total Square Cm 0.01 0.20 -Tunneling No -Undermining/Tunneling No -Circular Undermining No -Exudate Amt None Present Medium -Exudate Type Serosanguineous -Wound Margin Thickened -Granulation Amt Medium (34-66%) -Granulation Quality [place] -Slough/Fibrin Yes -Necrosis Amt Medium (34-66%) -Necrotic Tissue Type Adherent Slough -Structure Exposed N/A -Texture (Flory-wound Skin Appearance) Assessed Assessed -Moisture (Flory-wound Skin Appearance) Assessed Assessed -Color (Flory-wound Skin Appearance) Assessed Assessed -Temperature (Flory-wound Skin No Abnormality No Abnormality Appearance) (Pt Warm) (Pt Warm) -Tenderness on Palpation (Flory-wound No No Skin Appearance) -Ulcer Cleansing Rinsed/ Wound Cleanser Irrigated with Saline -Foul Odor after Cleansing No No -Anesthetic Used 5% Lidocaine 5% Lidocaine Gel Gel -Wound Comment(s) scabbed WC - Nurse 2 - General Ulcer CM Notes Start: 01/29/24 10:01 Freq: Status: Active Protocol: Activity Type Activity Date Activity User E-sign Co-sign Detail Recorded Client Recorded Date Recorded By Document 01/29/24 10:44 [id number] 01/29/24 10:59 Document 02/12/24 11:05 [id number] 02/12/24 11:21 01/29/24 02/12/24 10:44 11:05 Wound Center Nurse 2 #4 LEFT DISTAL PLANTAR -Time 10:44 11:05 -Correct Patient Yes Yes -Correct Side, Site, Position Yes Yes -Correct Procedure Yes Yes -Procedure Performed Yes Yes -Type of Procedure Debridement Debridement -Clinical Debridement Subcutaneous Subcutaneous -Tissue Removed Subcutaneous Subcutaneous -Post Debridement (cm) - Length 0.3 0.2 -Post Debridement (cm) - Width 0.6 0.3 -Post Debridement (cm) - Depth 0.2 0.1 -Total Square (Post) (cm) 0.18 0.06 -Area of Debridement (cm) - Length 0.3 0.2 -Area of Debridement (cm) - Width 0.6 0.3 -Total Square (Area) (cm) 0.18 0.06 -Tunneling No No -Undermining/Tunneling No No -Circular Undermining No No -Wound/Ulcer Outcome Not Healed Not Healed -Ulcer Cleansing Rinsed/ Rinsed/ Irrigated with Irrigated with Saline Saline -Foul Odor after Cleansing No No -Bioengineered Tissue No -Bleeding Controlled with Pressure Pressure -Treatment Response Procedure Procedure Tolerated Well Tolerated Well -Debridement - Subq, 1st 20sq cm No No #3 L Lateral Plantar Foot -Time 10:46 11:05 -Correct Patient Yes Yes -Correct Side, Site, Position Yes Yes -Correct Procedure Yes Yes -Procedure Performed Yes Yes -Type of Procedure Debridement Debridement -Clinical Debridement Subcutaneous Subcutaneous -Tissue Removed Subcutaneous Subcutaneous -Post Debridement (cm) - Length 0.8 0.5 -Post Debridement (cm) - Width 0.6 0.5 -Post Debridement (cm) - Depth 0.1 0.1 -Total Square (Post) (cm) 0.48 0.25 -Area of Debridement (cm) - Length 0.8 0.5 -Area of Debridement (cm) - Width 0.6 0.5 -Total Square (Area) (cm) 0.48 0.25 -Tunneling No No -Undermining/Tunneling No No -Circular Undermining No No -Wound/Ulcer Outcome Not Healed Not Healed -Ulcer Cleansing Rinsed/ Rinsed/ Irrigated with Irrigated with Saline Saline -Foul Odor after Cleansing No No -Bioengineered Tissue No No -Bleeding Controlled with Pressure Pressure -Treatment Response Procedure Procedure Tolerated Well Tolerated Well -Debridement - Subq, 1st 20sq cm Yes Yes Pain Scale: 0-10 Numeric Is Patient Pain Free? Yes Yes WC - Nurse 3 - General Ulcer D/C NN Start: 01/29/24 10:01 Freq: Status: Active Protocol: Activity Type Activity Date Activity User E-sign Co-sign Detail Recorded Client Recorded Date Recorded By Document 01/29/24 11:09 KW [id number] 01/29/24 11:10 KW Document 02/12/24 11:34 RB [id number] 02/12/24 11:37 RB 01/29/24 02/12/24 11:09 11:34 Wound Care Center Nurse 3 #4 LEFT DISTAL PLANTAR -Ulcer Cleansing Rinsed/ Irrigated with Saline -Primary Dressing Applied Aquacel Extra Aquacel Extra, Promogran -Primary Dressing Covered/Secured with Dry Gauze & Dry Gauze,Dry Roll Gauze, Gauze & Roll Secured with Gauze,Secured Tape with Tape -Aquacel Extra 1 1 -Promogran 1 #3 L Lateral Plantar Foot -Ulcer Cleansing Rinsed/ Irrigated with Saline -Other Dressing promogran, Aquacel extra -Primary Dressing Covered/Secured with Dry Gauze Dry Gauze & Roll Gauze, Secured with Tape Treatment Response Procedure Tolerated Well Pain Scale: 0-10 Numeric Is Patient Pain Free? Yes Yes WC - Visit Discharge Discharge Condition Stable Ambulatory Status Ambulatory Transportation Private Auto Medication Reconcilliation completed & No provided to patient/care provider Clinical Summary of Care Provided Yes Additional Wound Wound debrided: left lateral plantar Laterality: Left Type of Debridement: Excisional debridement Anesthesia Used: 4% Lidocaine Solution and 5% Lidocaine Gel Depth: Down to and including healthy tissue and in the subcutaneous layer Percentage of wound debrided: 100 Instrument Used: #15 blade and Forceps Tissue Removed: Yellow slough, devitalized tissue Severity: Fat Layer Exposed Amount of bleeding with debridement: Mild Bleeding Controlled with: Compression and gauze Patient tolerated procedure: Patient tolerated procedure well Assessment/Plan Assessment/Plan (1) Abscess of left foot excluding toes: CODE(S): L02.612 - Cutaneous abscess of left foot (2) Delayed wound healing: CODE(S): T14.8XXD - Other injury of unspecified body region, subsequent encounter (3) Chronic ulcer of left foot with fat layer exposed: CODE(S): L97.522 - Non-pressure chronic ulcer of other part of left foot with fat layer exposed (4) HTN (hypertension): CODE(S): I10 - Essential (primary) hypertension QUALIFIERS: Hypertension type: primary hypertension Qualified Code(s): I10 - Essential (primary) hypertension (5) Pressure ulcer of left foot, stage 3: CODE(S): L89.893 - Pressure ulcer of other site, stage 3 PLAN: Plan Debridement performed today in clinic as annotated above. There has been improvement since his last visit. At home wound-care instructions: Wash ulcer daily with antibacterial soap and water. Will have him use promogran and Aquacel Extra to ulcers and cover with gauze and roll gauze to secure daily. Keep dressing clean and dry. His work boot was modified on 07/03/23 and again 12/25/23 to try to offload pressure. Will have him use single layer tubigrip medium compression to left LE. Discussed possibly using TCC for offloading in near future but he is unable to do so due to work. We also discussed that there may be a single vessel narrowing that could be preventing healing and talked about possible referral to Vascular surgery to CTA runoff. Also discussed surgical procedure proposed by podiatry to shave exostosis of bone that is likely causing ulcer and he declines at this time. Off-loading: The patient was instructed to avoid pressure and friction on the affected areas. Reposition every 2 hours at minimum. Avoid prolonged standing and/or dangling of legs. When seated, feet should be elevated at chest level. Frequent ambulation is encouraged. Diet: Patient encouraged to increase protein intake while taking caution to avoid high carbohydrate and/or sugar intake. Labs/cultures/imaging: Wound culture positive 03/27/23 and is currently on Doxycycline. Wound culture showed Staph and Strep and he was treated with Keflex based on sensitivities and use topical Gentamicin for 3 weeks. Wound culture done 09/18/23 was positive for staph epidermidis. He has been on cephalexin and doxycycline. Wound culture was positive for Enterococcus and he has not started Linezolid yet. A second culture was taken today of the new area distal to his previous longstanding ulcer. Will have him start Linezolid tonight. XR of foot was negative. MRI negative for osteomyelitis and arterial testing negative for arterial insufficiency. Follow-up: Return in 2 weeks for wound care follow up due to conflicting schedules. Return sooner or report to the emergency room should symptoms worsen, or new symptoms arise. Note: [employer] speech recognition grab driver software was used to create portions of this document. Sound-alike and misspelled words, as well as other grab driver errors may be contained in the documentation.
== END 2024-02-22 23:59 | disposition home or self-care (01) ==
LOC: WC 10:00
PROVIDERS: PCP Family Medicine; Referring Provider Family Medicine; Visit Provider Family Medicine
DX: L89.893 Pressure ulcer of other site, stage 3 (principal); L97.522 Non-pressure chronic ulcer of other part of left foot with fat layer exposed; L02.612 Cutaneous abscess of left foot; I10 Essential (primary) hypertension; Z79.899 Other long term (current) drug therapy
CPT/HCPCS: 11042

== ENCOUNTER 2024-03-18 10:00 | Outpatient (RCR) | payer BC, SELFPAY ==
[2024-02-23 00:09] VITALS: BP 127/57; PULSE 76; RESP 18; TEMP 36.3
[2024-02-26 09:59] VITALS: BP 128/65; PULSE 67; RESP 16; TEMP 36.2
--- NOTE | 2024-02-26 13:02 | PCM.WC.PN ---
History of Present Illness Date of Service: 02/26/24 Chief Complaint: nonhealing wound left plantar foot History of Wound: Jose J is a 68 y/o gentleman that presents to the wound healing center for evaluation and treatment of a wound to his left plantar foot. He is a patient of Dr. Giordano. He has had a wound to this same area in February 2019 and was seen at [facility] and treated there for 9 weeks with Aquacel and was placed in a wedge shoe to offload his foot. He was treated for this same wound for almost a year at this wound center and was healed in May 2020 and returned in July and was treated until September. He has undergone vascular testing at [facility] in 2018 but not since that time. 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 He and his did not want to do surgery. He has managed to do well over the last 2 years until the end of October when the area became painful again and began draining. He saw Dr. Giordano and was treated with doxycycline which helped and they had been applying Aquacel that they had from previous treatment but it has not improved. He was treated with a second course of doxycycline and then referred here for treatment. He is still working and walking on his foot in a steel toe boot 4 days a week for 10 hours. He had an offloading pad in his work boot previously but no longer has this in place. He denies claudication with walking. He has moderate to heavy drainage from the ulcer. He has not had any wound cultures taken. 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 He denies fever, chill, nausea, vomiting, redness or odor. Subjective Subjective Jose J returns today for follow up of an ulcer on the bottom of his left foot. His ulcer and swelling of his foot has increased since last visit. He continues to wear his modified work boot to alleviate pressure to the site of the ulcer of his left foot. He has been tolerating the Aquacel Extra to the ulcer. The area is improved but callus continues to form. He has had decreased drainage. He denies fever, chills or odor. He had MRI on 10/02/23 which did not show any osteomyelitis of his foot. Arterial testing was also done and did not show any evidence of arterial insufficiency. HgbA1C was 6.5% on 10/09/23. Objective Data Objective Data Vital Signs: Vital Signs Temp Pulse Resp BP O2 Del Method 97.1 F L 67 16 128/65 H Room Air 02/26/24 09:59 02/26/24 09:59 02/26/24 09:59 02/26/24 09:59 02/26/24 09:59 Oxygen Delivery Method Room Air Physical Exam Const alert, oriented x3 and no apparent distress General Appearance: cooperative and comfortable HEENT normocephalic and head/scalp atraumatic Resp normal respiratory effort Effort and Inspection: able to speak in complete sentences Auscultation: rales, rhonchi and diminished lung sounds Cardio regular rate and regular rhythm Skin Wounds: wounds noted Wound Narrative: as in clinical panel Psych mental status grossly normal, thought process normal, cooperative and affect normal Debridement Note Debridement Note Wound debrided: left lateral plantar Laterality: Left Wound Grade/Stage: Luther grade 2 Type of Debridement: Excisional debridement Anesthesia Used: 4% Lidocaine Solution and 5% Lidocaine Gel Depth: Down to and including healthy tissue and in the subcutaneous layer Percentage of wound debrided: 100 Instrument Used: #15 blade and Forceps Tissue Removed: Yellow slough, devitalized tissue Severity: Fat Layer Exposed Amount of bleeding with debridement: Mild Bleeding Controlled with: Compression and gauze Patient tolerated procedure: Patient tolerated procedure well Post-Debridement Measurements and Additional Note: Post-Debridement Measurements/Treatment - Nurse 1 - General Ulcer Assessment Start: 02/26/24 09:59 Freq: Status: Active Protocol: KANIKA Activity Type Activity Date Activity User E-sign Co-sign Detail Recorded Client Recorded Date Recorded By Document 02/26/24 09:59 DS [id number] 02/26/24 10:00 DS 02/26/24 09:59 - Today's Visit Information Type of service Follow-up Visit (Physician/LITERACY TUTOR ) Arrival Mode Ambulatory Patient Identification Verified (Name & Yes ) Patient Requires Transmission-Based No Precautions Safety Precautions Fall Prevention Vital Signs Temperature (97.8 F-99.1 F) 97.1 F L Temperature Source Temporal Pulse Rate (60-100) 67 Pulse Location Monitor Respiratory Rate (12-18) 16 Respiratory rate source Observation Oxygen Delivery Method Room Air Blood Pressure (90/60-120/80) 128/65 H Blood Pressure Mean (mm Hg) 86 Source Monitor Position Sitting Blood Pressure Location Right Arm History Since Last Visit- (Skip if this is Patient's initial visit) Have you changed medications since your Yes last visit? Any new allergies or adverse reactions No Had a fall/change in ADL's that may No increase risk of falls Signs or symptoms of abuse and/or No neglect since last visit Have you been in the hospital since your No last visit? Has dressing in place as prescribed Yes Has compression in place as prescribed No Has offloadiing in place as prescribed No Experienced any changes in pain level or No management Left Footwear Regular Shoe Right Footwear Regular Shoe Pain Scale: 0-10 Numeric Is Patient Pain Free? Yes WC - Nurse 1 - General Ulcer Measurement Start: 02/26/24 09:59 Freq: Status: Active Protocol: Activity Type Activity Date Activity User E-sign Co-sign Detail Recorded Client Recorded Date Recorded By Document 02/26/24 10:01 DS [id number] 02/26/24 10:09 DS 02/26/24 10:01 Wound Center Nurse 1 #4 LEFT DISTAL PLANTAR -Current Size (cm) - Length 0.7 -Current Size (cm) - Width 0.9 -Current Size (cm) - Depth 0.1 -Total Square Cm 0.63 -Photo Taken No -Tunneling No -Undermining/Tunneling No -Circular Undermining No -Classification - Thickness Partial Thickness -Wound Margin Distinct, Outline Attached -Necrosis Amt Large (67-100%) -Necrotic Tissue Type Eschar -Texture (Flory-wound Skin Appearance) Assessed -Moisture (Flory-wound Skin Appearance) Assessed -Color (Flory-wound Skin Appearance) Assessed -Temperature (Flory-wound Skin No Abnormality Appearance) (Pt Warm) -Tenderness on Palpation (Flory-wound No Skin Appearance) -Ulcer Cleansing Soap and Water -Anesthetic Used 5% Lidocaine Gel #3 L Lateral Plantar Foot -Current Size (cm) - Length 0.7 -Current Size (cm) - Width 0.7 -Current Size (cm) - Depth 0.2 -Total Square Cm 0.49 -Photo Taken No -Tunneling No -Undermining/Tunneling No -Circular Undermining No -Classification - Thickness Partial Thickness -Granulation Amt Large (67-100%) -Granulation Quality [place] -Texture (Flory-wound Skin Appearance) Assessed -Moisture (Flory-wound Skin Appearance) Assessed -Color (Flory-wound Skin Appearance) Assessed -Temperature (Flory-wound Skin No Abnormality Appearance) (Pt Warm) -Tenderness on Palpation (Flory-wound No Skin Appearance) -Ulcer Cleansing Soap and Water -Anesthetic Used 5% Lidocaine Gel QUOC - Nurse 2 - General Ulcer CM Notes Start: 02/26/24 09:59 Freq: Status: Active Protocol: Activity Type Activity Date Activity User E-sign Co-sign Detail Recorded Client Recorded Date Recorded By Document 02/26/24 10:14 GM [id number] 02/26/24 10:34 GM 02/26/24 10:14 Wound Center Nurse 2 #4 LEFT DISTAL PLANTAR -Time 10:14 -Correct Patient Yes -Correct Side, Site, Position Yes -Tunneling No -Undermining/Tunneling No -Circular Undermining No -Wound/Ulcer Outcome Healed- Epithelialized #3 L Lateral Plantar Foot -Time 10:15 -Correct Patient Yes -Correct Side, Site, Position Yes -Correct Procedure Yes -Procedure Performed Yes -Type of Procedure Debridement -Clinical Debridement Subcutaneous -Tissue Removed Subcutaneous -Post Debridement (cm) - Length 1.1 -Post Debridement (cm) - Width 0.7 -Post Debridement (cm) - Depth 0.1 -Total Square (Post) (cm) 0.77 -Area of Debridement (cm) - Length 1.1 -Area of Debridement (cm) - Width 0.7 -Total Square (Area) (cm) 0.77 -Tunneling No -Undermining/Tunneling No -Circular Undermining No -Wound/Ulcer Outcome Not Healed -Foul Odor after Cleansing No -Bioengineered Tissue No -Bleeding Controlled with Pressure -Treatment Response Procedure Tolerated Well -Debridement - Subq, 1st 20sq cm Yes Pain Scale: 0-10 Numeric Is Patient Pain Free? Yes WC - Nurse 3 - General Ulcer D/C NN Start: 02/26/24 09:59 Freq: Status: Active Protocol: Activity Type Activity Date Activity User E-sign Co-sign Detail Recorded Client Recorded Date Recorded By Document 02/26/24 10:40 DS [id number] 02/26/24 10:45 DS 02/26/24 10:40 Wound Care Center Nurse 3 #3 L Lateral Plantar Foot -Primary Dressing Applied Aquacel Extra -Primary Dressing Covered/Secured with Dry Gauze & Roll Gauze, Secured with Tape -Aquacel Extra 1 Pain Scale: 0-10 Numeric Is Patient Pain Free? Yes WC - Visit Discharge Discharge Condition Stable Ambulatory Status Ambulatory Transportation Private Auto Medication Reconcilliation completed & Yes provided to patient/care provider Clinical Summary of Care Provided Yes Assessment/Plan Assessment/Plan (1) Abscess of left foot excluding toes: CODE(S): L02.612 - Cutaneous abscess of left foot (2) Delayed wound healing: CODE(S): T14.8XXD - Other injury of unspecified body region, subsequent encounter (3) Chronic ulcer of left foot with fat layer exposed: CODE(S): L97.522 - Non-pressure chronic ulcer of other part of left foot with fat layer exposed (4) HTN (hypertension): CODE(S): I10 - Essential (primary) hypertension QUALIFIERS: Hypertension type: primary hypertension Qualified Code(s): I10 - Essential (primary) hypertension (5) Pressure ulcer of left foot, stage 3: CODE(S): L89.893 - Pressure ulcer of other site, stage 3 PLAN: Plan Debridement performed today in clinic as annotated above. There has been improvement since his last visit. At home wound-care instructions: Wash ulcer daily with antibacterial soap and water. Will have him use Aquacel Extra to ulcer and cover with gauze and roll gauze to secure daily. Keep dressing clean and dry. His work boot was modified on 07/03/23 and again 12/25/23 to try to offload pressure. Will have him use single layer tubigrip medium compression to left LE. Discussed possibly using TCC for offloading in near future but he is unable to do so due to work. We also discussed that there may be a single vessel narrowing that could be preventing healing and talked about possible referral to Vascular surgery to CTA runoff. Also discussed surgical procedure proposed by podiatry to shave exostosis of bone that is likely causing ulcer and he declines at this time. Off-loading: The patient was instructed to avoid pressure and friction on the affected areas. Reposition every 2 hours at minimum. Avoid prolonged standing and/or dangling of legs. When seated, feet should be elevated at chest level. Frequent ambulation is encouraged. Diet: Patient encouraged to increase protein intake while taking caution to avoid high carbohydrate and/or sugar intake. Labs/cultures/imaging: Wound culture positive 03/27/23 and is currently on Doxycycline. Wound culture showed Staph and Strep and he was treated with Keflex based on sensitivities and use topical Gentamicin for 3 weeks. Wound culture done 09/18/23 was positive for staph epidermidis. He has been on cephalexin and doxycycline. Wound culture was positive for Enterococcus and he has not started Linezolid yet. A second culture was taken today of the new area distal to his previous longstanding ulcer. Will have him start Linezolid tonight. XR of foot was negative. MRI negative for osteomyelitis and arterial testing negative for arterial insufficiency. Follow-up: Return in 1 week for wound care follow up due to conflicting schedules. Return sooner or report to the emergency room should symptoms worsen, or new symptoms arise. Note: [employer] speech recognition top lift and automatic window repairer software was used to create portions of this document. Sound-alike and misspelled words, as well as other top lift and automatic window repairer errors may be contained in the documentation.
[2024-03-04 09:49] VITALS: BP 139/70; PULSE 67; RESP 18; TEMP 36.3
--- NOTE | 2024-03-04 12:44 | PN.PCM_ITS ---
History of Present Illness Date of Service: 03/04/24 Chief Complaint: nonhealing wound left plantar foot History of Wound: Jose J is a 68 y/o gentleman that presents to the wound healing center for evaluation and treatment of a wound to his left plantar foot. He is a patient of Dr. Giordano. He has had a wound to this same area in February 2019 and was seen at [facility] [place] and treated there for 9 weeks with Aquacel and was placed in a wedge shoe to offload his foot. He was treated for this same wound for almost a year at this wound center and was healed in May 2020 and returned in July and was treated until September. He has undergone vascular testing at [facility] in 2018 but not since that time. 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 He and his did not want to do surgery. He has managed to do well over the last 2 years until the end of October when the area became painful again and began draining. He saw Dr. Giordano and was treated with doxycycline which helped and they had been applying Aquacel that they had from previous treatment but it has not improved. He was treated with a second course of doxycycline and then referred here for treatment. He is still working and walking on his foot in a steel toe boot 4 days a week for 10 hours. He had an offloading pad in his work boot previously but no longer has this in place. He denies claudication with walking. He has moderate to heavy drainage from the ulcer. He has not had any wound cultures taken. 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 He denies fever, chill, nausea, vomiting, redness or odor. Subjective Subjective Jose J returns today for follow up of an ulcer on the bottom of his left foot. His ulcer and swelling of his foot has increased since last visit. He continues to wear his modified work boot to alleviate pressure to the site of the ulcer of his left foot. He has been tolerating the Aquacel Extra to the ulcer. The area is improved but callus continues to form. He has had decreased drainage. He denies fever, chills or odor. He had MRI on 10/02/23 which did not show any osteomyelitis of his foot. Arterial testing was also done and did not show any evidence of arterial insufficiency. HgbA1C was 6.5% on 10/09/23. Objective Data Objective Data Vital Signs: Vital Signs Temp Pulse Resp BP O2 Del Method 97.4 F L 67 18 139/70 H Room Air 03/04/24 09:49 03/04/24 09:49 03/04/24 09:49 03/04/24 09:49 03/04/24 09:49 Oxygen Delivery Method Room Air Physical Exam Const alert, oriented x3 and no apparent distress General Appearance: cooperative and comfortable HEENT normocephalic and head/scalp atraumatic Resp normal respiratory effort Effort and Inspection: able to speak in complete sentences Auscultation: rales, rhonchi and diminished lung sounds Cardio regular rate and regular rhythm Skin Wounds: wounds noted Wound Narrative: as in clinical panel Psych mental status grossly normal, thought process normal, cooperative and affect normal Debridement Note Debridement Note Wound debrided: left lateral plantar Laterality: Left Wound Grade/Stage: Luther grade 2 Type of Debridement: Excisional debridement Anesthesia Used: 4% Lidocaine Solution and 5% Lidocaine Gel Depth: Down to and including healthy tissue and in the subcutaneous layer Percentage of wound debrided: 100 Instrument Used: #15 blade and Forceps Tissue Removed: Yellow slough, devitalized tissue Severity: Fat Layer Exposed Amount of bleeding with debridement: Mild Bleeding Controlled with: Compression and gauze Patient tolerated procedure: Patient tolerated procedure well Post-Debridement Measurements and Additional Note: Post-Debridement Measurements/Treatment - Nurse 1 - General Ulcer Assessment Start: 02/26/24 09:59 Freq: Status: Active Protocol: KANIKA Activity Type Activity Date Activity User E-sign Co-sign Detail Recorded Client Recorded Date Recorded By Document 02/26/24 09:59 DS [id number] 02/26/24 10:00 DS Document 03/04/24 09:49 KW [id number] 03/04/24 09:53 KW 02/26/24 03/04/24 09:59 09:49 - Today's Visit Information Type of service Follow-up Visit Follow-up Visit (Physician/FIRE PREVENTION INSPECTOR (Physician/FIRE PREVENTION INSPECTOR ) ) Arrival Mode Ambulatory Ambulatory Accompanied by Patient Identification Verified (Name & Yes Yes ) Patient Requires Transmission-Based No Precautions Safety Precautions Fall Prevention Vital Signs Temperature (97.8 F-99.1 F) 97.1 F L 97.4 F L Temperature Source Temporal Temporal Pulse Rate (60-100) 67 67 Pulse Location Monitor Monitor Respiratory Rate (12-18) 16 18 Respiratory rate source Observation Observation Oxygen Delivery Method Room Air Room Air Blood Pressure (90/60-120/80) 128/65 H 139/70 H Blood Pressure Mean (mm Hg) 86 93 Source Monitor Monitor Position Sitting Sitting Blood Pressure Location Right Arm Left Arm History Since Last Visit- (Skip if this is Patient's initial visit) Have you changed medications since your Yes No last visit? Any new allergies or adverse reactions No No Had a fall/change in ADL's that may No No increase risk of falls Signs or symptoms of abuse and/or No No neglect since last visit Have you been in the hospital since your No No last visit? Has dressing in place as prescribed Yes Yes Has compression in place as prescribed No Yes Has offloadiing in place as prescribed No N/A Experienced any changes in pain level or No No management Left Footwear Regular Shoe Regular Shoe Right Footwear Regular Shoe Regular Shoe Pain Scale: 0-10 Numeric Is Patient Pain Free? Yes Yes WC - Nurse 1 - General Ulcer Measurement Start: 02/26/24 09:59 Freq: Status: Active Protocol: Activity Type Activity Date Activity User E-sign Co-sign Detail Recorded Client Recorded Date Recorded By Document 02/26/24 10:01 DS [id number] 02/26/24 10:09 DS Document 03/04/24 09:49 KW [id number] 03/04/24 09:53 KW 02/26/24 03/04/24 10:01 09:49 Wound Center Nurse 1 #4 LEFT DISTAL PLANTAR -Current Size (cm) - Length 0.7 -Current Size (cm) - Width 0.9 -Current Size (cm) - Depth 0.1 -Total Square Cm 0.63 -Photo Taken No -Tunneling No -Undermining/Tunneling No -Circular Undermining No -Classification - Thickness Partial Thickness -Wound Margin Distinct, Outline Attached -Necrosis Amt Large (67-100%) -Necrotic Tissue Type Eschar -Texture (Flory-wound Skin Appearance) Assessed -Moisture (Flory-wound Skin Appearance) Assessed -Color (Flory-wound Skin Appearance) Assessed -Temperature (Flory-wound Skin No Abnormality Appearance) (Pt Warm) -Tenderness on Palpation (Flory-wound No Skin Appearance) -Ulcer Cleansing Soap and Water -Anesthetic Used 5% Lidocaine Gel #3 L Lateral Plantar Foot -Current Size (cm) - Length 0.7 1 -Current Size (cm) - Width 0.7 0.6 -Current Size (cm) - Depth 0.2 0.3 -Total Square Cm 0.49 0.6 -Date of Last Picture (Recall this 03/04/24 field) -Photo Taken No -Tunneling No -Undermining/Tunneling No -Circular Undermining No -Classification - Thickness Partial Thickness -Exudate Amt Medium -Exudate Type Serosanguineous -Wound Margin Thickened -Granulation Amt Large (67-100%) Large (67-100%) -Granulation Quality [place],Red -Texture (Flory-wound Skin Appearance) Assessed Assessed,Callus ,Rash -Moisture (Flory-wound Skin Appearance) Assessed Assessed -Color (Flory-wound Skin Appearance) Assessed Assessed -Temperature (Flory-wound Skin No Abnormality No Abnormality Appearance) (Pt Warm) (Pt Warm) -Tenderness on Palpation (Flory-wound No No Skin Appearance) -Ulcer Cleansing Soap and Water Rinsed/ Irrigated with Saline -Foul Odor after Cleansing No -Anesthetic Used 5% Lidocaine 5% Lidocaine Gel Gel WC - Nurse 2 - General Ulcer CM Notes Start: 02/26/24 09:59 Freq: Status: Active Protocol: Activity Type Activity Date Activity User E-sign Co-sign Detail Recorded Client Recorded Date Recorded By Document 02/26/24 10:14 [id number] 02/26/24 10:34 Document 03/04/24 10:05 [id number] 03/04/24 10:15 02/26/24 03/04/24 10:14 10:05 Wound Center Nurse 2 #4 LEFT DISTAL PLANTAR -Time 10:14 -Correct Patient Yes -Correct Side, Site, Position Yes -Tunneling No -Undermining/Tunneling No -Circular Undermining No -Wound/Ulcer Outcome Healed- Epithelialized #3 L Lateral Plantar Foot -Time 10:15 10:06 -Correct Patient Yes Yes -Correct Side, Site, Position Yes Yes -Correct Procedure Yes Yes -Procedure Performed Yes Yes -Type of Procedure Debridement Debridement -Clinical Debridement Subcutaneous Subcutaneous -Tissue Removed Subcutaneous Subcutaneous -Post Debridement (cm) - Length 1.1 0.8 -Post Debridement (cm) - Width 0.7 1.0 -Post Debridement (cm) - Depth 0.1 0.1 -Total Square (Post) (cm) 0.77 0.80 -Area of Debridement (cm) - Length 1.1 0.8 -Area of Debridement (cm) - Width 0.7 1.0 -Total Square (Area) (cm) 0.77 0.80 -Tunneling No No -Undermining/Tunneling No No -Circular Undermining No No -Wound/Ulcer Outcome Not Healed Not Healed -Ulcer Cleansing Rinsed/ Irrigated with Saline -Foul Odor after Cleansing No No -Bioengineered Tissue No No -Bleeding Controlled with Pressure Pressure -Treatment Response Procedure Procedure Tolerated Well Tolerated Well -Debridement - Subq, 1st 20sq cm Yes Yes Pain Scale: 0-10 Numeric Is Patient Pain Free? Yes Yes - Nurse 3 - General Ulcer D/C NN Start: 02/26/24 09:59 Freq: Status: Active Protocol: Activity Type Activity Date Activity User E-sign Co-sign Detail Recorded Client Recorded Date Recorded By Document 02/26/24 10:40 DS [id number] 02/26/24 10:45 DS 02/26/24 10:40 Wound Care Center Nurse 3 #3 L Lateral Plantar Foot -Primary Dressing Applied Aquacel Extra -Primary Dressing Covered/Secured with Dry Gauze & Roll Gauze, Secured with Tape -Aquacel Extra 1 Pain Scale: 0-10 Numeric Is Patient Pain Free? Yes - Visit Discharge Discharge Condition Stable Ambulatory Status Ambulatory Transportation Private Auto Medication Reconcilliation completed & Yes provided to patient/care provider Clinical Summary of Care Provided Yes Assessment/Plan Assessment/Plan (1) Abscess of left foot excluding toes: CODE(S): L02.612 - Cutaneous abscess of left foot (2) Delayed wound healing: CODE(S): T14.8XXD - Other injury of unspecified body region, subsequent encounter (3) Chronic ulcer of left foot with fat layer exposed: CODE(S): L97.522 - Non-pressure chronic ulcer of other part of left foot with fat layer exposed (4) HTN (hypertension): CODE(S): I10 - Essential (primary) hypertension QUALIFIERS: Hypertension type: primary hypertension Qualified Code(s): I10 - Essential (primary) hypertension (5) Pressure ulcer of left foot, stage 3: CODE(S): L89.893 - Pressure ulcer of other site, stage 3 PLAN: Plan Debridement performed today in clinic as annotated above. There has been improvement since his last visit. At home wound-care instructions: Wash ulcer daily with antibacterial soap and water. Will have him use Aquacel Extra to ulcer and cover with gauze and roll gauze to secure daily. Keep dressing clean and dry. His work boot was modified on 07/03/23 and again 12/25/23 to try to offload pressure. Will have him use single layer tubigrip medium compression to left LE. Discussed possibly using TCC for offloading in near future but he is unable to do so due to work. We also discussed that there may be a single vessel narrowing that could be preventing healing and talked about possible referral to Vascular surgery to CTA runoff. Also discussed surgical procedure proposed by podiatry to shave exostosis of bone that is likely causing ulcer and he declines at this time. Off-loading: The patient was instructed to avoid pressure and friction on the affected areas. Reposition every 2 hours at minimum. Avoid prolonged standing and/or dangling of legs. When seated, feet should be elevated at chest level. Frequent ambulation is encouraged. Diet: Patient encouraged to increase protein intake while taking caution to avoid high carbohydrate and/or sugar intake. Labs/cultures/imaging: Wound culture positive 03/27/23 and is currently on Doxycycline. Wound culture showed Staph and Strep and he was treated with Keflex based on sensitivities and use topical Gentamicin for 3 weeks. Wound culture done 09/18/23 was positive for staph epidermidis. He has been on cephalexin and doxycycline. Wound culture was positive for Enterococcus and Linezolid completed. XR of foot was negative. MRI negative for osteomyelitis and arterial testing negative for arterial insufficiency. Follow-up: Return in 2 weeks for wound care follow up due to conflicting schedules. Return sooner or report to the emergency room should symptoms worsen, or new symptoms arise. Note: [employer] speech recognition barrel assembler helper software was used to create portions of this document. Sound-alike and misspelled words, as well as other barrel assembler helper errors may be contained in the documentation.
--- NOTE | 2024-03-07 11:05 | WC ---
PHOTO 03/04/24 LEFT LATERAL PLANTAR
[2024-03-18 09:58] VITALS: BP 117/58; PULSE 75; RESP 18; TEMP 36
--- NOTE | 2024-03-18 11:00 | PN.PCM_ITS ---
History of Present Illness Date of Service: 03/18/24 Chief Complaint: nonhealing wound left plantar foot History of Wound: Jose J is a 68 y/o gentleman that presents to the wound healing center for evaluation and treatment of a wound to his left plantar foot. He is a patient of Dr. Giordano. He has had a wound to this same area in February 2019 [address] seen at [facility] and treated there for 9 weeks with Aquacel and was placed in a wedge shoe to offload his foot. He was treated for this same wound for almost a year at this wound center and was healed in May 2020 and returned in July and was treated until September. He has undergone vascular testing at [facility] in 2018 but not since that time. 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 He and his did not want to do surgery. He has managed to do well over the last 2 years until the end of October when the area became painful again and began draining. He saw Dr. Giordano and was treated with doxycycline which helped and they had been applying Aquacel that they had from previous treatment but it has not improved. He was treated with a second course of doxycycline and then referred here for treatment. He is still working and walking on his foot in a steel toe boot 4 days a week for 10 hours. He had an offloading pad in his work boot previously but no longer has this in place. He denies claudication with walking. He has moderate to heavy drainage from the ulcer. He has not had any wound cultures taken. 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 He denies fever, chill, nausea, vomiting, redness or odor. Subjective Subjective Jose J returns today for follow up of an ulcer on the bottom of his left foot. His ulcer and drainage has increased since last visit. He continues to wear his modified work boot to alleviate pressure to the site of the ulcer of his left foot. He has been tolerating the Aquacel Extra to the ulcer. The area is slightly worse on the side of the foot. He denies fever, chills or odor. He had MRI on 10/02/23 which did not show any osteomyelitis of his foot. Arterial testing was also done and did not show any evidence of arterial insufficiency. HgbA1C was 6.5% on 10/09/23. Objective Data Objective Data Vital Signs: Vital Signs Temp Pulse Resp BP O2 Del Method 96.8 F L 75 18 117/58 L Room Air 03/18/24 09:58 03/18/24 09:58 03/18/24 09:58 03/18/24 09:58 03/18/24 09:58 Oxygen Delivery Method Room Air Physical Exam Const alert, oriented x3 and no apparent distress General Appearance: cooperative and comfortable HEENT normocephalic and head/scalp atraumatic Resp normal respiratory effort Effort and Inspection: able to speak in complete sentences Auscultation: rales, rhonchi and diminished lung sounds Cardio regular rate and regular rhythm Skin Wounds: wounds noted Wound Narrative: as in clinical panel Psych mental status grossly normal, thought process normal, cooperative and affect normal Debridement Note Debridement Note Wound debrided: left plantar Laterality: Left Wound Grade/Stage: Luther grade 1 Type of Debridement: Excisional debridement Anesthesia Used: 5% Lidocaine Gel Depth: in the subcutaneous layer Percentage of wound debrided: 100 Instrument Used: #15 blade and Forceps Tissue Removed: Yellow slough, devitalized tissue Severity: Fat Layer Exposed Amount of bleeding with debridement: Mild Bleeding Controlled with: Compression and gauze Patient tolerated procedure: Patient tolerated procedure well Post-Debridement Measurements and Additional Note: Post-Debridement Measurements/Treatment - Nurse 1 - General Ulcer Assessment Start: 02/26/24 09:59 Freq: Status: Active Protocol: KANIKA Activity Type Activity Date Activity User E-sign Co-sign Detail Recorded Client Recorded Date Recorded By Document 02/26/24 09:59 DS [id number] 02/26/24 10:00 DS Document 03/04/24 09:49 KW [id number] 03/04/24 09:53 KW Document 03/18/24 09:58 KW [id number] 03/18/24 10:03 KW 02/26/24 03/04/24 03/18/24 09:59 09:49 09:58 - Today's Visit Information Type of service Follow-up Visit Follow-up Visit Follow-up Visit (Physician/NUTRITION EDUCATOR (Physician/NUTRITION EDUCATOR (Physician/NUTRITION EDUCATOR ) ) ) Arrival Mode Ambulatory Ambulatory Ambulatory Accompanied by Patient Identification Verified (Name & Yes Yes Yes ) Patient Requires Transmission-Based No Precautions Safety Precautions Fall Prevention Vital Signs Temperature (97.8 F-99.1 F) 97.1 F L 97.4 F L 96.8 F L Temperature Source Temporal Temporal Temporal Pulse Rate (60-100) 67 67 75 Pulse Location Monitor Monitor Monitor Respiratory Rate (12-18) 16 18 18 Respiratory rate source Observation Observation Observation Oxygen Delivery Method Room Air Room Air Room Air Blood Pressure (90/60-120/80) 128/65 H 139/70 H 117/58 L Blood Pressure Mean (mm Hg) 86 93 77 Source Monitor Monitor Monitor Position Sitting Sitting Sitting Blood Pressure Location Right Arm Left Arm Left Arm History Since Last Visit- (Skip if this is Patient's initial visit) Have you changed medications since your Yes No No last visit? Any new allergies or adverse reactions No No No Had a fall/change in ADL's that may No No No increase risk of falls Signs or symptoms of abuse and/or No No No neglect since last visit Have you been in the hospital since your No No No last visit? Has dressing in place as prescribed Yes Yes Yes Has compression in place as prescribed No Yes Yes Has offloadiing in place as prescribed No N/A N/A Experienced any changes in pain level or No No No management Left Footwear Regular Shoe Regular Shoe Regular Shoe Right Footwear Regular Shoe Regular Shoe Regular Shoe Pain Scale: 0-10 Numeric Is Patient Pain Free? Yes Yes Yes WC - Nurse 1 - General Ulcer Measurement Start: 02/26/24 09:59 Freq: Status: Active Protocol: Activity Type Activity Date Activity User E-sign Co-sign Detail Recorded Client Recorded Date Recorded By Document 02/26/24 10:01 DS [id number] 02/26/24 10:09 DS Document 03/04/24 09:49 KW [id number] 03/04/24 09:53 KW Document 03/18/24 09:58 KW [id number] 03/18/24 10:03 KW 02/26/24 03/04/24 03/18/24 10:01 09:49 09:58 Wound Center Nurse 1 #4 LEFT DISTAL PLANTAR -Current Size (cm) - Length 0.7 -Current Size (cm) - Width 0.9 -Current Size (cm) - Depth 0.1 -Total Square Cm 0.63 -Photo Taken No -Tunneling No -Undermining/Tunneling No -Circular Undermining No -Classification - Thickness Partial Thickness -Wound Margin Distinct, Outline Attached -Necrosis Amt Large (67-100%) -Necrotic Tissue Type Eschar -Texture (Flory-wound Skin Appearance) Assessed -Moisture (Flory-wound Skin Appearance) Assessed -Color (Flory-wound Skin Appearance) Assessed -Temperature (Flory-wound Skin No Abnormality Appearance) (Pt Warm) -Tenderness on Palpation (Flory-wound No Skin Appearance) -Ulcer Cleansing Soap and Water -Anesthetic Used 5% Lidocaine Gel #3 L Lateral Plantar Foot -Current Size (cm) - Length 0.7 1 0.9 -Current Size (cm) - Width 0.7 0.6 0.5 -Current Size (cm) - Depth 0.2 0.3 0.2 -Total Square Cm 0.49 0.6 0.45 -Date of Last Picture (Recall this 03/04/24 field) -Photo Taken No -Tunneling No Yes -Tunneling Position (O'clock) 12 -Tunneling Distance (cm) 1 -Undermining/Tunneling No -Circular Undermining No -Classification - Thickness Partial Thickness -Exudate Amt Medium Small -Exudate Type Serosanguineous Serosanguineous -Wound Margin Thickened Distinct, Outline Attached -Granulation Amt Large (67-100%) Large (67-100%) Large (67-100%) -Granulation Quality [place],Red Red -Texture (Flory-wound Skin Appearance) Assessed Assessed,Callus Assessed,Callus ,Rash -Moisture (Flory-wound Skin Appearance) Assessed Assessed Assessed -Color (Flory-wound Skin Appearance) Assessed Assessed Assessed -Temperature (Flory-wound Skin No Abnormality No Abnormality No Abnormality Appearance) (Pt Warm) (Pt Warm) (Pt Warm) -Tenderness on Palpation (Flory-wound No No No Skin Appearance) -Ulcer Cleansing Soap and Water Rinsed/ Rinsed/ Irrigated with Irrigated with Saline Saline -Foul Odor after Cleansing No No -Anesthetic Used 5% Lidocaine 5% Lidocaine 5% Lidocaine Gel Gel Gel WC - Nurse 2 - General Ulcer CM Notes Start: 02/26/24 09:59 Freq: Status: Active Protocol: Activity Type Activity Date Activity User E-sign Co-sign Detail Recorded Client Recorded Date Recorded By Document 02/26/24 10:14 [id number] 02/26/24 10:34 Document 03/04/24 10:05 GM [id number] 03/04/24 10:15 Document 03/18/24 10:32 [id number] 03/18/24 10:53 GM 02/26/24 03/04/24 03/18/24 10:14 10:05 10:32 Wound Center Nurse 2 #4 LEFT DISTAL PLANTAR -Time 10:14 -Correct Patient Yes -Correct Side, Site, Position Yes -Tunneling No -Undermining/Tunneling No -Circular Undermining No -Wound/Ulcer Outcome Healed- Epithelialized #3 L Lateral Plantar Foot -Time 10:15 10:06 10:32 -Correct Patient Yes Yes Yes -Correct Side, Site, Position Yes Yes Yes -Correct Procedure Yes Yes Yes -Procedure Performed Yes Yes Yes -Type of Procedure Debridement Debridement Debridement -Clinical Debridement Subcutaneous Subcutaneous Subcutaneous -Tissue Removed Subcutaneous Subcutaneous Subcutaneous -Post Debridement (cm) - Length 1.1 0.8 1.9 -Post Debridement (cm) - Width 0.7 1.0 1.2 -Post Debridement (cm) - Depth 0.1 0.1 0.1 -Total Square (Post) (cm) 0.77 0.80 2.28 -Area of Debridement (cm) - Length 1.1 0.8 1.9 -Area of Debridement (cm) - Width 0.7 1.0 1.2 -Total Square (Area) (cm) 0.77 0.80 2.28 -Tunneling No No No -Undermining/Tunneling No No No -Circular Undermining No No No -Wound/Ulcer Outcome Not Healed Not Healed Not Healed -Ulcer Cleansing Rinsed/ Rinsed/ Irrigated with Irrigated with Saline Saline -Foul Odor after Cleansing No No No -Bioengineered Tissue No No No -Bleeding Controlled with Pressure Pressure Pressure -Treatment Response Procedure Procedure Procedure Tolerated Well Tolerated Well Tolerated Well -Debridement - Subq, 1st 20sq cm Yes Yes Yes Pain Scale: 0-10 Numeric Is Patient Pain Free? Yes Yes Yes WC - Nurse 3 - General Ulcer D/C NN Start: 02/26/24 09:59 Freq: Status: Active Protocol: Activity Type Activity Date Activity User E-sign Co-sign Detail Recorded Client Recorded Date Recorded By Document 02/26/24 10:40 DS [id number] 02/26/24 10:45 DS 02/26/24 10:40 Wound Care Center Nurse 3 #3 L Lateral Plantar Foot -Primary Dressing Applied Aquacel Extra -Primary Dressing Covered/Secured with Dry Gauze & Roll Gauze, Secured with Tape -Aquacel Extra 1 Pain Scale: 0-10 Numeric Is Patient Pain Free? Yes WC - Visit Discharge Discharge Condition Stable Ambulatory Status Ambulatory Transportation Private Auto Medication Reconcilliation completed & Yes provided to patient/care provider Clinical Summary of Care Provided Yes Assessment/Plan Assessment/Plan (1) Abscess of left foot excluding toes: CODE(S): L02.612 - Cutaneous abscess of left foot (2) Delayed wound healing: CODE(S): T14.8XXD - Other injury of unspecified body region, subsequent encounter (3) Chronic ulcer of left foot with fat layer exposed: CODE(S): L97.522 - Non-pressure chronic ulcer of other part of left foot with fat layer exposed (4) HTN (hypertension): CODE(S): I10 - Essential (primary) hypertension QUALIFIERS: Hypertension type: primary hypertension Qualified Code(s): I10 - Essential (primary) hypertension (5) Diabetic ulcer of foot associated with diabetes mellitus due to underlying condition, with fat layer exposed: CODE(S): E08.621 - Diabetes mellitus due to underlying condition with foot ulcer; L97.502 - Non-pressure chronic ulcer of other part of unspecified foot with fat layer exposed QUALIFIERS: Diabetic foot ulcer location: midfoot Laterality: left Qualified Code(s): E08.621 - Diabetes mellitus due to underlying condition with foot ulcer; L97.422 - Non-pressure chronic ulcer of left heel and midfoot with fat layer exposed (6) Type 2 diabetes mellitus without complications: CODE(S): E11.9 - Type 2 diabetes mellitus without complications QUALIFIERS: Diabetes mellitus fdc insulin use: without equipment operator intermodal yard 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 There has been improvement since his last visit. At home wound-care instructions: Wash ulcer daily with antibacterial soap and water. Will have him continue to use Aquacel Extra to ulcer and cover with gauze and roll gauze to secure daily. Keep dressing clean and dry. His work boot was modified on 07/03/23 and again 12/25/23 to try to offload pressure. Will have him use single layer tubigrip medium compression to left LE. Discussed possibly using TCC for offloading in near future but he is unable to do so due to work. We also discussed that there may be a single vessel narrowing that could be preventing healing and talked about possible referral to Vascular surgery to CTA runoff. Also discussed surgical procedure proposed by podiatry to shave exostosis of bone that is likely causing ulcer and he declines at this time. Off-loading: The patient was instructed to avoid pressure and friction on the affected areas. Reposition every 2 hours at minimum. Avoid prolonged standing and/or dangling of legs. When seated, feet should be elevated at chest level. Frequent ambulation is encouraged. Diet: Patient encouraged to increase protein intake while taking caution to avoi d high carbohydrate and/or sugar intake. Labs/cultures/imaging: Wound culture positive 03/27/23 and is currently on Doxycycline. Wound culture showed Staph and Strep and he was treated with Keflex based on sensitivities and use topical Gentamicin for 3 weeks. Wound culture done 09/18/23 was positive for staph epidermidis. He has been on cephalexin and doxycycline. Wound culture was positive for Enterococcus and Linezolid completed. Wound culture taken today. XR of foot was negative. MRI negative for osteomyelitis and arterial testing negative for arterial insufficiency. Follow-up: Return in 1 week for wound care follow up. Return sooner or report to the emergency room should symptoms worsen, or new symptoms arise. Note: [employer] speech recognition co founder and chief strategy officer software was used to create portions of this document. Sound-alike and misspelled words, as well as other co founder and chief strategy officer errors may be contained in the documentation.
== END 2024-03-24 23:59 | disposition home or self-care (01) ==
LOC: WC 10:00
PROVIDERS: PCP Family Medicine; Referring Provider Family Medicine; Visit Provider Family Medicine
DX: L89.893 Pressure ulcer of other site, stage 3 (principal); L97.422 Non-pressure chronic ulcer of left heel and midfoot with fat layer exposed; I10 Essential (primary) hypertension; L02.612 Cutaneous abscess of left foot
CPT/HCPCS: 11042; 87070; 87075; 87077; 87186; 87205

== ENCOUNTER 2024-04-15 10:00 | Outpatient (RCR) | payer BC, SELFPAY ==
[2024-03-25 00:09] VITALS: BP 127/57; PULSE 76; RESP 18; TEMP 36.3
[2024-03-25 09:54] VITALS: BP 133/71; PULSE 75; RESP 18; TEMP 36.6
--- NOTE | 2024-03-25 11:20 | RAD_ITS ---
INDICATION: ULCER L PLANTAR 5TH METATARSAL EXAMINATION/TECHNIQUE: X-RAY - LEFT XR Foot Min 3 Views 3 VIEWS COMPARISON: Prior study dated: 08/07/2023 FINDINGS: SOFT TISSUES: No soft tissue swelling or gas. No radiopaque foreign body. BONES/JOINTS: No acute fracture or subluxation.. Normal alignment. Preservation of the joint space.. No sclerotic or destructive changes observed. Mild hypertrophic spurring of the plantar aponeurosis and Achilles insertion to the calcaneus. RAD/Foot min 3 Views IMPRESSION: No fracture or malalignment. Small heel spurs. No osseous erosions. Electronically Signed: Alec Whitt MD at 1:39 EDT ,
--- NOTE | 2024-03-25 12:22 | PN.PCM_ITS ---
History of Present Illness Date of Service: 03/25/24 Chief Complaint: nonhealing wound left plantar foot History of Wound: Jose J is a 68 y/o gentleman that presents to the wound healing center for evaluation and treatment of a wound to his left plantar foot. He is a patient of Dr. Giordano. He has had a wound to this same area in February 2019 [address] seen at [facility] and treated there for 9 weeks with Aquacel and was placed in a wedge shoe to offload his foot. He was treated for this same wound for almost a year at this wound center and was healed in May 2020 and returned in July and was treated until September. He has undergone vascular testing at [facility] in 2018 but not since that time. 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 He and his did not want to do surgery. He has managed to do well over the last 2 years until the end of October when the area became painful again and began draining. He saw Dr. Giordano and was treated with doxycycline which helped and they had been applying Aquacel that they had from previous treatment but it has not improved. He was treated with a second course of doxycycline and then referred here for treatment. He is still working and walking on his foot in a steel toe boot 4 days a week for 10 hours. He had an offloading pad in his work boot previously but no longer has this in place. He denies claudication with walking. He has moderate to heavy drainage from the ulcer. He has not had any wound cultures taken. 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 He denies fever, chill, nausea, vomiting, redness or odor. Objective Data Objective Data Vital Signs: Vital Signs Temp Pulse Resp BP 97.8 F 75 18 133/71 H 03/25/24 09:54 03/25/24 09:54 03/25/24 09:54 03/25/24 09:54 Debridement Note Debridement Note Post-Debridement Measurements and Additional Note: Post-Debridement Measurements/Treatment QUOC - Nurse 1 - General Ulcer Assessment Start: 03/25/24 09:54 Freq: Status: Active Protocol: KANIKA Activity Type Activity Date Activity User E-sign Co-sign Detail Recorded Client Recorded Date Recorded By Document 03/25/24 09:54 RB [id number] 03/25/24 09:56 RB 03/25/24 09:54 - Today's Visit Information Type of service 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 Any new allergies or adverse reactions No Had a fall/change in ADL's that may No increase risk of falls Signs or symptoms of abuse and/or No neglect since last visit Have you been in the hospital since your No last visit? Has dressing in place as prescribed Yes Has compression in place as prescribed No Has offloadiing in place as prescribed Yes Experienced any changes in pain level or No management Left Footwear Regular Shoe Right Footwear Regular Shoe Pain Scale: 0-10 Numeric Is Patient Pain Free? Yes - Nurse 1 - General Ulcer Measurement Start: 03/25/24 09:54 Freq: Status: Active Protocol: Activity Type Activity Date Activity User E-sign Co-sign Detail Recorded Client Recorded Date Recorded By Document 03/25/24 09:54 RB [id number] 03/25/24 09:56 03/25/24 09:54 Wound Center Nurse 1 #3 L Lateral Plantar Foot -Combined with other wound No -Current Size (cm) - Length 0.6 -Current Size (cm) - Width 0.9 -Current Size (cm) - Depth 0.1 -Total Square Cm 0.54 -Photo Taken Yes -Tunneling No -Undermining/Tunneling No -Circular Undermining No -Exudate Amt Medium -Exudate Type Serosanguineous -Wound Margin Thickened -Granulation Amt Medium (34-66%) -Granulation Quality [place] -Slough/Fibrin Yes -Necrosis Amt Medium (34-66%) -Necrotic Tissue Type Adherent Slough -Structure Exposed N/A -Texture (Flory-wound Skin Appearance) Assessed,Callus -Moisture (Flory-wound Skin Appearance) Assessed -Color (Flory-wound Skin Appearance) Assessed -Temperature (Flory-wound Skin No Abnormality Appearance) (Pt Warm) -Tenderness on Palpation (Flory-wound No Skin Appearance) -Ulcer Cleansing Wound Cleanser -Foul Odor after Cleansing No -Anesthetic Used 5% Lidocaine Gel - Nurse 2 - General Ulcer CM Notes Start: 03/25/24 09:54 Freq: Status: Active Protocol: Activity Type Activity Date Activity User E-sign Co-sign Detail Recorded Client Recorded Date Recorded By Document 03/25/24 10:30 [id number] 03/25/24 10:43 03/25/24 10:30 Wound Center Nurse 2 -Time 10:30 -Correct Patient Yes -Correct Side, Site, Position Yes -Correct Procedure Yes -Procedure Performed Yes -Type of Procedure Debridement -Clinical Debridement Subcutaneous -Tissue Removed Subcutaneous -Post Debridement (cm) - Length 1.5 -Post Debridement (cm) - Width 0.7 -Post Debridement (cm) - Depth 0.1 -Total Square (Post) (cm) 1.05 -Area of Debridement (cm) - Length 1.5 -Area of Debridement (cm) - Width 0.7 -Total Square (Area) (cm) 1.05 -Tunneling No -Undermining/Tunneling No -Circular Undermining No -Wound/Ulcer Outcome Not Healed -Ulcer Cleansing Rinsed/ Irrigated with Saline -Foul Odor after Cleansing No -Bioengineered Tissue No -Bleeding Controlled with Pressure -Treatment Response Procedure Tolerated Well -Debridement - Subq, 1st 20sq cm Yes Pain Scale: 0-10 Numeric Is Patient Pain Free? Yes - Nurse 3 - General Ulcer D/C NN Start: 03/25/24 09:54 Freq: Status: Active Protocol: Activity Type Activity Date Activity User E-sign Co-sign Detail Recorded Client Recorded Date Recorded By Document 03/25/24 11:21 RB [id number] 03/25/24 11:23 RB 03/25/24 11:21 Wound Care Center Nurse 3 #3 L Lateral Plantar Foot -Primary Dressing Applied Aquacel Extra -Primary Dressing Covered/Secured with Dry Gauze,Dry Gauze & Roll Gauze,Secured with Tape -Aquacel Extra 1 -Wound Comment(s) surgaform left in place per Dr Plummer ordered Treatment Response Procedure Tolerated Well Pain Scale: 0-10 Numeric Is Patient Pain Free? Yes Teaching: Wound Center Dressing Your Wound -Person Taught Patient -Teaching Method Discussion, Demonstration -Response to teaching Verbalize Understanding WC - Visit Discharge Discharge Condition Stable Ambulatory Status Ambulatory Transportation Private Auto Medication Reconcilliation completed & No provided to patient/care provider Clinical Summary of Care Provided Yes Assessment/Plan Assessment/Plan (1) Abscess of left foot excluding toes: CODE(S): L02.612 - Cutaneous abscess of left foot (2) Delayed wound healing: CODE(S): T14.8XXD - Other injury of unspecified body region, subsequent encounter (3) Chronic ulcer of left foot with fat layer exposed: CODE(S): L97.522 - Non-pressure chronic ulcer of other part of left foot with fat layer exposed (4) HTN (hypertension): CODE(S): I10 - Essential (primary) hypertension QUALIFIERS: Hypertension type: primary hypertension Qualified Code(s): I10 - Essential (primary) hypertension (5) Diabetic ulcer of foot associated with diabetes mellitus due to underlying condition, with fat layer exposed: CODE(S): E08.621 - Diabetes mellitus due to underlying condition with foot ulcer; L97.502 - Non-pressure chronic ulcer of other part of unspecified foot with fat layer exposed QUALIFIERS: Diabetic foot ulcer location: midfoot Laterality: left Qualified Code(s): E08.621 - Diabetes mellitus due to underlying condition with foot ulcer; L97.422 - Non-pressure chronic ulcer of left heel and midfoot with fat layer exposed (6) Type 2 diabetes mellitus without complications: CODE(S): E11.9 - Type 2 diabetes mellitus without complications QUALIFIERS: Diabetes mellitus detention insulin use: without predatory animal exterminator 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 There has been improvement since his last visit. At home wound-care instructions: Wash ulcer daily with antibacterial soap and water. Will have him continue to use Aquacel Extra to ulcer and cover with gauze and roll gauze to secure daily. Keep dressing clean and dry. His work boot was modified on 07/03/23 and again 12/25/23 to try to offload pressure. Will have him use single layer tubigrip medium compression to left LE. Discussed possibly using TCC for offloading in near future but he is unable to do so due to work. We also discussed that there may be a single vessel narrowing that could be preventing healing and talked about possible referral to Vascular surgery to CTA runoff. Also discussed surgical procedure proposed by podiatry to shave exostosis of bone that is likely causing ulcer and he declines at this time. Off-loading: The patient was instructed to avoid pressure and friction on the affected areas. Reposition every 2 hours at minimum. Avoid prolonged standing and/or dangling of legs. When seated, feet should be elevated at chest level. Frequent ambulation is encouraged. Diet: Patient encouraged to increase protein intake while taking caution to avoid high carbohydrate and/or sugar intake. Labs/cultures/imaging: Wound culture positive 03/27/23 and is currently on Doxycycline. Wound culture showed Staph and Strep and he was treated with Keflex based on sensitivities and use topical Gentamicin for 3 weeks. Wound culture done 09/18/23 was positive for staph epidermidis. He has been on cephalexin and doxycycline. Wound culture was positive for Enterococcus and Linezolid completed. Wound culture was positive and he will start Flagyl, Cipro and hold cefdinir and decrease doxycycline to once/day. Will repeat xray left foot. XR of foot was negative. MRI negative for osteomyelitis and arterial testing negative for arterial insufficiency. Follow-up: Return in 1 week for wound care follow up. Return sooner or report to the emergency room should symptoms worsen, or new symptoms arise. Note: [employer] speech recognition service sprinkler helper software was used to create portions of this document. Sound-alike and misspelled words, as well as other service sprinkler helper errors may be contained in the documentation.
[2024-04-01 09:53] VITALS: BP 120/70; PULSE 76; RESP 18; TEMP 36.2
--- NOTE | 2024-04-01 12:59 | PCM.WC.PN ---
History of Present Illness Date of Service: 04/01/24 Chief Complaint: nonhealing wound left plantar foot History of Wound: Jose J is a 68 y/o gentleman that presents to the wound healing center for evaluation and treatment of a wound to his left plantar foot. He is a patient of Dr. Giordano. He has had a wound to this same area in February 2019 [address] seen at [facility] and treated there for 9 weeks with Aquacel and was placed in a wedge shoe to offload his foot. He was treated for this same wound for almost a year at this wound center and was healed in May 2020 and returned in July and was treated until September. He has undergone vascular testing at [facility] in 2018 but not since that time. 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 He and his did not want to do surgery. He has managed to do well over the last 2 years until the end of October when the area became painful again and began draining. He saw Dr. Giordano and was treated with doxycycline which helped and they had been applying Aquacel that they had from previous treatment but it has not improved. He was treated with a second course of doxycycline and then referred here for treatment. He is still working and walking on his foot in a steel toe boot 4 days a week for 10 hours. He had an offloading pad in his work boot previously but no longer has this in place. He denies claudication with walking. He has moderate to heavy drainage from the ulcer. He has not had any wound cultures taken. 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 He denies fever, chill, nausea, vomiting, redness or odor. Subjective Subjective Jose J returns today for follow up of an ulcer on the bottom of his left foot. His ulcer and drainage has increased since last visit. He continues to wear his modified work boot to alleviate pressure to the site of the ulcer of his left foot. He has been tolerating the Aquacel Extra to the ulcer. The area is slightly worse on the side of the foot. He denies fever, chills or odor. He had MRI on 10/02/23 which did not show any osteomyelitis of his foot. Arterial testing was also done and did not show any evidence of arterial insufficiency. HgbA1C was 6.5% on 10/09/23. Objective Data Objective Data Vital Signs: Vital Signs Temp Pulse Resp BP O2 Del Method 97.1 F L 76 18 120/70 Room Air 04/01/24 09:53 04/01/24 09:53 04/01/24 09:53 04/01/24 09:53 04/01/24 09:53 Oxygen Delivery Method Room Air Physical Exam Const alert, oriented x3 and no apparent distress General Appearance: cooperative and comfortable HEENT normocephalic and head/scalp atraumatic Resp normal respiratory effort Effort and Inspection: able to speak in complete sentences Auscultation: rales, rhonchi and diminished lung sounds Cardio regular rate and regular rhythm Skin Wounds: wounds noted Wound Narrative: as in clinical panel Psych mental status grossly normal, thought process normal, cooperative and affect normal Debridement Note Debridement Note Wound debrided: left plantar ulcer Laterality: Left Type of Debridement: Excisional debridement Anesthesia Used: 5% Lidocaine Gel Depth: Down to and including healthy tissue and in the subcutaneous layer Percentage of wound debrided: 100 Instrument Used: #15 blade and Forceps Tissue Removed: Yellow slough, devitalized tissue Severity: Fat Layer Exposed Amount of bleeding with debridement: Mild Bleeding Controlled with: Compression and gauze Patient tolerated procedure: Patient tolerated procedure well Post-Debridement Measurements and Additional Note: Post-Debridement Measurements/Treatment - Nurse 1 - General Ulcer Assessment Start: 03/25/24 09:54 Freq: Status: Active Protocol: QUOC.AMADA Activity Type Activity Date Activity User E-sign Co-sign Detail Recorded Client Recorded Date Recorded By Document 03/25/24 09:54 RB [id number] 03/25/24 09:56 RB Document 04/01/24 09:53 KW [id number] 04/01/24 09:57 KW 03/25/24 04/01/24 09:54 09:53 - Today's Visit Information Type of service Follow-up Visit 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 Visit (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 (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 ) ) Arrival Mode Ambulatory Ambulatory Transfer Assistance None Accompanied by Patient Identification Verified (Name & Yes Yes ) Patient Requires Transmission-Based No Precautions Vital Signs Temperature (97.8 F-99.1 F) 97.8 F 97.1 F L Temperature Source Temporal Temporal Pulse Rate (60-100) 75 76 Pulse Location Monitor Monitor Respiratory Rate (12-18) 18 18 Respiratory rate source Observation Observation Oxygen Delivery Method Room Air Blood Pressure (90/60-120/80) 133/71 H 120/70 Blood Pressure Mean (mm Hg) 91 86 Source Monitor Monitor Position Semi-Fowlers Semi-Fowlers Blood Pressure Location Left Arm Left Arm History Since Last Visit- (Skip if this is Patient's initial visit) Have you changed medications since your No No last visit? Any new allergies or adverse reactions No No Had a fall/change in ADL's that may No No increase risk of falls Signs or symptoms of abuse and/or No No neglect since last visit Have you been in the hospital since your No No last visit? Has dressing in place as prescribed Yes Yes Has compression in place as prescribed No Yes Has offloadiing in place as prescribed Yes N/A Experienced any changes in pain level or No No management Left Footwear Regular Shoe Regular Shoe Right Footwear Regular Shoe Regular Shoe Pain Scale: 0-10 Numeric Is Patient Pain Free? Yes Yes WC - Nurse 1 - General Ulcer Measurement Start: 03/25/24 09:54 Freq: Status: Active Protocol: Activity Type Activity Date Activity User E-sign Co-sign Detail Recorded Client Recorded Date Recorded By Document 03/25/24 09:54 RB [id number] 03/25/24 09:56 RB Document 04/01/24 09:53 KW [id number] 04/01/24 09:57 03/25/24 04/01/24 09:54 09:53 Wound Center Nurse 1 #3 L Lateral Plantar Foot -Combined with other wound No -Current Size (cm) - Length 0.6 0.5 -Current Size (cm) - Width 0.9 1 -Current Size (cm) - Depth 0.1 0.1 -Total Square Cm 0.54 0.5 -Photo Taken Yes -Tunneling No -Undermining/Tunneling No -Circular Undermining No -Exudate Amt Medium Small -Exudate Type Serosanguineous Serosanguineous -Wound Margin Thickened Thickened -Granulation Amt Medium (34-66%) Large (67-100%) -Granulation Quality Ingenio Ingenio -Slough/Fibrin Yes -Necrosis Amt Medium (34-66%) -Necrotic Tissue Type Adherent Slough -Structure Exposed N/A -Texture (Flory-wound Skin Appearance) Assessed,Callus Assessed,Not Assessed -Moisture (Flory-wound Skin Appearance) Assessed Assessed -Color (Flory-wound Skin Appearance) Assessed Assessed -Temperature (Flory-wound Skin No Abnormality No Abnormality Appearance) (Pt Warm) (Pt Warm) -Tenderness on Palpation (Flory-wound No No Skin Appearance) -Ulcer Cleansing Wound Cleanser Rinsed/ Irrigated with Saline -Foul Odor after Cleansing No No -Anesthetic Used 5% Lidocaine 5% Lidocaine Gel Gel - Nurse 2 - General Ulcer CM Notes Start: 03/25/24 09:54 Freq: Status: Active Protocol: Activity Type Activity Date Activity User E-sign Co-sign Detail Recorded Client Recorded Date Recorded By Document 03/25/24 10:30 [id number] 03/25/24 10:43 Document 04/01/24 10:22 [id number] 04/01/24 10:40 03/25/24 04/01/24 10:30 10:22 Wound Center Nurse 2 #3 L Lateral Plantar Foot -Time 10:30 10:22 -Correct Patient Yes Yes -Correct Side, Site, Position Yes Yes -Correct Procedure Yes Yes -Procedure Performed Yes Yes -Type of Procedure Debridement Debridement -Clinical Debridement Subcutaneous Subcutaneous -Tissue Removed Subcutaneous Subcutaneous -Post Debridement (cm) - Length 1.5 2.0 -Post Debridement (cm) - Width 0.7 1.5 -Post Debridement (cm) - Depth 0.1 0.2 -Total Square (Post) (cm) 1.05 3.00 -Area of Debridement (cm) - Length 1.5 2.0 -Area of Debridement (cm) - Width 0.7 1.5 -Total Square (Area) (cm) 1.05 3.00 -Tunneling No No -Undermining/Tunneling No No -Circular Undermining No No -Wound/Ulcer Outcome Not Healed Not Healed -Ulcer Cleansing Rinsed/ Rinsed/ Irrigated with Irrigated with Saline Saline -Foul Odor after Cleansing No No -Bioengineered Tissue No No -Bleeding Controlled with Pressure Pressure, SURGIFOAM -Treatment Response Procedure Procedure Tolerated Well Tolerated Well -Debridement - Subq, 1st 20sq cm Yes Yes Pain Scale: 0-10 Numeric Is Patient Pain Free? Yes Yes - Nurse 3 - General Ulcer D/C NN Start: 03/25/24 09:54 Freq: Status: Active Protocol: Activity Type Activity Date Activity User E-sign Co-sign Detail Recorded Client Recorded Date Recorded By Document 03/25/24 11:21 RB [id number] 03/25/24 11:23 RB Document 04/01/24 10:57 RB [id number] 04/01/24 10:57 RB 03/25/24 04/01/24 11:21 10:57 Wound Care Center Nurse 3 #3 L Lateral Plantar Foot -Ulcer Cleansing Rinsed/ Irrigated with Saline -Primary Dressing Applied Aquacel Extra Aquacel Extra -Primary Dressing Covered/Secured with Dry Gauze,Dry Dry Gauze,Dry Gauze & Roll Gauze & Roll Gauze,Secured Gauze,Secured with Tape with Tape -Aquacel Extra 1 1 -Wound Comment(s) surgaform left in place per Dr Plummer ordered Treatment Response Procedure Procedure Tolerated Well Tolerated Well Pain Scale: 0-10 Numeric Is Patient Pain Free? Yes Yes Teaching: Wound Center Dressing Your Wound -Person Taught Patient -Teaching Method Discussion, Demonstration -Response to teaching Verbalize Understanding WC - Visit Discharge Discharge Condition Stable Stable Ambulatory Status Ambulatory Ambulatory Transportation Private Auto Private Auto Medication Reconcilliation completed & No No provided to patient/care provider Clinical Summary of Care Provided Yes Yes Assessment/Plan Assessment/Plan (1) Abscess of left foot excluding toes: CODE(S): L02.612 - Cutaneous abscess of left foot (2) Delayed wound healing: CODE(S): T14.8XXD - Other injury of unspecified body region, subsequent encounter (3) Chronic ulcer of left foot with fat layer exposed: CODE(S): L97.522 - Non-pressure chronic ulcer of other part of left foot with fat layer exposed (4) HTN (hypertension): CODE(S): I10 - Essential (primary) hypertension QUALIFIERS: Hypertension type: primary hypertension Qualified Code(s): I10 - Essential (primary) hypertension (5) Diabetic ulcer of foot associated with diabetes mellitus due to underlying condition, with fat layer exposed: CODE(S): E08.621 - Diabetes mellitus due to underlying condition with foot ulcer; L97.502 - Non-pressure chronic ulcer of other part of unspecified foot with fat layer exposed QUALIFIERS: Diabetic foot ulcer location: midfoot Laterality: left Qualified Code(s): E08.621 - Diabetes mellitus due to underlying condition with foot ulcer; L97.422 - Non-pressure chronic ulcer of left heel and midfoot with fat layer exposed (6) Type 2 diabetes mellitus without complications: CODE(S): E11.9 - Type 2 diabetes mellitus without complications QUALIFIERS: Diabetes mellitus adjunct faculty for medical terminology insulin use: without detention 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 There has been improvement since his last visit. At home wound-care instructions: Wash ulcer daily with antibacterial soap and water. Will have him continue to use Aquacel Extra to ulcer and cover with gauze and roll gauze to secure daily. Keep dressing clean and dry. His work boot was modified on 07/03/23 and again 12/25/23 to try to offload pressure. Will have him use single layer tubigrip medium compression to left LE. Discussed possibly using TCC for offloading in near future but he is unable to do so due to work. We also discussed that there may be a single vessel narrowing that could be preventing healing and talked about possible referral to Vascular surgery to CTA runoff. Also discussed surgical procedure proposed by podiatry to shave exostosis of bone that is likely causing ulcer and he declines at this time. Off-loading: The patient was instructed to avoid pressure and friction on the affected areas. Reposition every 2 hours at minimum. Avoid prolonged standing and/or dangling of legs. When seated, feet should be elevated at chest level. Frequent ambulation is encouraged. Diet: Patient encouraged to increase protein intake while taking caution to avoid high carbohydrate and/or sugar intake. Labs/cultures/imaging: Wound culture positive 03/27/23 and is currently on Doxycycline. Wound culture showed Staph and Strep and he was treated with Keflex based on sensitivities and use topical Gentamicin for 3 weeks. Wound culture done 09/18/23 was positive for staph epidermidis. He has been on cephalexin and doxycycline. Wound culture was positive for Enterococcus and Linezolid completed. Wound culture was positive and he will continue Flagyl, Cipro and hold cefdinir and decrease doxycycline to once/day. XR of foot was negative. MRI negative for osteomyelitis and arterial testing negative for arterial insufficiency. Repeat XR of foot was negative. Follow-up: Return in 1 week for wound care follow up. Return sooner or report to the emergency room should symptoms worsen, or new symptoms arise. Note: [employer] speech recognition spiral weaver software was used to create portions of this document. Sound-alike and misspelled words, as well as other spiral weaver errors may be contained in the documentation.
[2024-04-08 09:53] VITALS: BP 120/60; PULSE 73; RESP 17; TEMP 36.8
--- NOTE | 2024-04-08 13:12 | PCM.WC.PN ---
History of Present Illness Date of Service: 04/08/24 Chief Complaint: nonhealing wound left plantar foot History of Wound: Jose J is a 68 y/o gentleman that presents to the wound healing center for evaluation and treatment of a wound to his left plantar foot. He is a patient of Dr. Giordano. He has had a wound to this same area in February 2019 and was seen at [facility] and treated there for 9 weeks with Aquacel and was placed in a wedge shoe to offload his foot. He was treated for this same wound for almost a year at this wound center and was healed in May 2020 and returned in July and was treated until September. He has undergone vascular testing at [facility] in 2018 but not since that time. 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 He and his did not want to do surgery. He has managed to do well over the last 2 years until the end of October when the area became painful again and began draining. He saw Dr. Giordano and was treated with doxycycline which helped and they had been applying Aquacel that they had from previous treatment but it has not improved. He was treated with a second course of doxycycline and then referred here for treatment. He is still working and walking on his foot in a steel toe boot 4 days a week for 10 hours. He had an offloading pad in his work boot previously but no longer has this in place. He denies claudication with walking. He has moderate to heavy drainage from the ulcer. He has not had any wound cultures taken. 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 He denies fever, chill, nausea, vomiting, redness or odor. Subjective Subjective Jose J returns today for follow up of an ulcer on the bottom of his left foot. His ulcer and drainage has increased since last visit. He continues to wear his modified work boot to alleviate pressure to the site of the ulcer of his left foot. He has been tolerating the Aquacel Extra to the ulcer. He denies fever, chills or odor. He had MRI on 10/02/23 which did not show any osteomyelitis of his foot. Arterial testing was also done and did not show any evidence of arterial insufficiency. HgbA1C was 6.5% on 10/09/23. Objective Data Objective Data Vital Signs: Vital Signs Temp Pulse Resp BP O2 Del Method 98.2 F 73 17 120/60 Room Air 04/08/24 09:53 04/08/24 09:53 04/08/24 09:53 04/08/24 09:53 04/01/24 09:53 Oxygen Delivery Method Room Air Physical Exam Const alert, oriented x3 and no apparent distress General Appearance: cooperative and comfortable HEENT normocephalic and head/scalp atraumatic Resp normal respiratory effort Effort and Inspection: able to speak in complete sentences Auscultation: rales, rhonchi and diminished lung sounds Cardio regular rate and regular rhythm Skin Wounds: wounds noted Wound Narrative: as in clinical panel Psych mental status grossly normal, thought process normal, cooperative and affect normal Debridement Note Debridement Note Wound debrided: left lateral plantar ulcer Laterality: Left Type of Debridement: Excisional debridement Anesthesia Used: 4% Lidocaine Solution and 5% Lidocaine Gel Depth: Down to and including healthy tissue and in the subcutaneous layer Percentage of wound debrided: 100 Instrument Used: #10 blade and Forceps Tissue Removed: Yellow slough, devitalized tissue Severity: Fat Layer Exposed Amount of bleeding with debridement: Moderate Bleeding Controlled with: Gel Foam Patient tolerated procedure: Patient tolerated procedure well Post-Debridement Measurements and Additional Note: Post-Debridement Measurements/Treatment - Nurse 1 - General Ulcer Assessment Start: 03/25/24 09:54 Freq: Status: Active Protocol: QUOC.AMADA Activity Type Activity Date Activity User E-sign Co-sign Detail Recorded Client Recorded Date Recorded By Document 03/25/24 09:54 RB [id number] 03/25/24 09:56 RB Document 04/01/24 09:53 KW [id number] 04/01/24 09:57 KW Document 04/08/24 09:53 ML [id number] 04/08/24 09:57 ML 03/25/24 04/01/24 04/08/24 09:54 09:53 09:53 - Today's Visit Information Type of service Follow-up Visit Follow-up Visit Follow-up Visit (Physician/ENGRAVER ORNAMENTAL DESIGN (Physician/ENGRAVER ORNAMENTAL DESIGN (Physician/ENGRAVER ORNAMENTAL DESIGN ) ) ) Arrival Mode Ambulatory Ambulatory Ambulatory Transfer Assistance None None Accompanied by Patient Identification Verified (Name & Yes Yes Yes ) Patient Requires Transmission-Based No No Precautions Vital Signs Temperature (97.8 F-99.1 F) 97.8 F 97.1 F L 98.2 F Temperature Source Temporal Temporal Temporal Pulse Rate (60-100) 75 76 73 Pulse Location Monitor Monitor Monitor Respiratory Rate (12-18) 18 18 17 Respiratory rate source Observation Observation Observation Oxygen Delivery Method Room Air Blood Pressure (90/60-120/80) 133/71 H 120/70 120/60 Blood Pressure Mean (mm Hg) 91 86 80 Source Monitor Monitor Monitor Position Semi-Fowlers Semi-Fowlers Blood Pressure Location Left Arm Left Arm History Since Last Visit- (Skip if this is Patient's initial visit) Have you changed medications since your No No No last visit? Any new allergies or adverse reactions No No Had a fall/change in ADL's that may No No increase risk of falls Signs or symptoms of abuse and/or No No No neglect since last visit Have you been in the hospital since your No No No last visit? Has dressing in place as prescribed Yes Yes Yes Has compression in place as prescribed No Yes N/A Has offloadiing in place as prescribed Yes N/A N/A Experienced any changes in pain level or No No No management Left Footwear Regular Shoe Regular Shoe Right Footwear Regular Shoe Regular Shoe Pain Scale: 0-10 Numeric Is Patient Pain Free? Yes Yes No WC - Nurse 1 - General Ulcer Measurement Start: 03/25/24 09:54 Freq: Status: Active Protocol: Activity Type Activity Date Activity User E-sign Co-sign Detail Recorded Client Recorded Date Recorded By Document 03/25/24 09:54 RB [id number] 03/25/24 09:56 RB Document 04/01/24 09:53 KW [id number] 04/01/24 09:57 KW Document 04/08/24 09:53 ML [id number] 04/08/24 09:57 ML 03/25/24 04/01/24 04/08/24 09:54 09:53 09:53 Wound Center Nurse 1 #3 L Lateral Plantar Foot -Combined with other wound No -Current Size (cm) - Length 0.6 0.5 1.2 -Current Size (cm) - Width 0.9 1 2 -Current Size (cm) - Depth 0.1 0.1 0.2 -Total Square Cm 0.54 0.5 2.4 -Photo Taken Yes -Tunneling No -Undermining/Tunneling No -Circular Undermining No -Exudate Amt Medium Small Medium -Exudate Type Serosanguineous Serosanguineous Serous -Wound Margin Thickened Thickened Distinct, Outline Attached -Granulation Amt Medium (34-66%) Large (67-100%) Medium (34-66%) -Granulation Quality Hidalgo Hidalgo -Slough/Fibrin Yes Yes -Necrosis Amt Medium (34-66%) Medium (34-66%) -Necrotic Tissue Type Adherent Slough Adherent Slough -Structure Exposed N/A -Texture (Flory-wound Skin Appearance) Assessed,Callus Assessed,Not Assessed Assessed -Moisture (Flory-wound Skin Appearance) Assessed Assessed Assessed -Color (Flory-wound Skin Appearance) Assessed Assessed Assessed -Temperature (Flory-wound Skin No Abnormality No Abnormality No Abnormality Appearance) (Pt Warm) (Pt Warm) (Pt Warm) -Tenderness on Palpation (Flory-wound No No No Skin Appearance) -Ulcer Cleansing Wound Cleanser Rinsed/ Rinsed/ Irrigated with Irrigated with Saline Saline -Foul Odor after Cleansing No No No -Anesthetic Used 5% Lidocaine 5% Lidocaine 5% Lidocaine Gel Gel Gel WC - Nurse 2 - General Ulcer CM Notes Start: 03/25/24 09:54 Freq: Status: Active Protocol: Activity Type Activity Date Activity User E-sign Co-sign Detail Recorded Client Recorded Date Recorded By Document 03/25/24 10:30 [id number] 03/25/24 10:43 Document 04/01/24 10:22 [id number] 04/01/24 10:40 Document 04/08/24 10:13 [id number] 04/08/24 10:31 03/25/24 04/01/24 04/08/24 10:30 10:22 10:13 Wound Center Nurse 2 #3 L Lateral Plantar Foot -Time 10:30 10:22 10:13 -Correct Patient Yes Yes Yes -Correct Side, Site, Position Yes Yes Yes -Correct Procedure Yes Yes Yes -Procedure Performed Yes Yes Yes -Type of Procedure Debridement Debridement Debridement -Clinical Debridement Subcutaneous Subcutaneous Subcutaneous -Tissue Removed Subcutaneous Subcutaneous Subcutaneous -Post Debridement (cm) - Length 1.5 2.0 1.0 -Post Debridement (cm) - Width 0.7 1.5 1.5 -Post Debridement (cm) - Depth 0.1 0.2 0.1 -Total Square (Post) (cm) 1.05 3.00 1.50 -Area of Debridement (cm) - Length 1.5 2.0 1.0 -Area of Debridement (cm) - Width 0.7 1.5 1.5 -Total Square (Area) (cm) 1.05 3.00 1.50 -Tunneling No No No -Undermining/Tunneling No No No -Circular Undermining No No No -Wound/Ulcer Outcome Not Healed Not Healed Not Healed -Ulcer Cleansing Rinsed/ Rinsed/ Rinsed/ Irrigated with Irrigated with Irrigated with Saline Saline Saline -Foul Odor after Cleansing No No No -Bioengineered Tissue No No No -Bleeding Controlled with Pressure Pressure, Pressure SURGIFOAM -Treatment Response Procedure Procedure Procedure Tolerated Well Tolerated Well Tolerated Well -Debridement - Subq, 1st 20sq cm Yes Yes Yes Pain Scale: 0-10 Numeric Is Patient Pain Free? Yes Yes Yes WC - Nurse 3 - General Ulcer D/C NN Start: 03/25/24 09:54 Freq: Status: Active Protocol: Activity Type Activity Date Activity User E-sign Co-sign Detail Recorded Client Recorded Date Recorded By Document 03/25/24 11:21 RB [id number] 03/25/24 11:23 RB Document 04/01/24 10:57 RB [id number] 04/01/24 10:57 RB Document 04/08/24 10:42 KW [id number] 04/08/24 10:42 KW 03/25/24 04/01/24 04/08/24 11:21 10:57 10:42 Wound Care Center Nurse 3 #3 L Lateral Plantar Foot -Ulcer Cleansing Rinsed/ Irrigated with Saline -Primary Dressing Applied Aquacel Extra Aquacel Extra Aquacel Extra -Primary Dressing Covered/Secured with Dry Gauze,Dry Dry Gauze,Dry Dry Gauze & Gauze & Roll Gauze & Roll Roll Gauze, Gauze,Secured Gauze,Secured Secured with with Tape with Tape Tape -Aquacel Extra 1 1 1 -Wound Comment(s) surgaform left in place per Dr Plummer ordered Treatment Response Procedure Procedure Tolerated Well Tolerated Well Pain Scale: 0-10 Numeric Is Patient Pain Free? Yes Yes Yes Teaching: Wound Center Dressing Your Wound -Person Taught Patient -Teaching Method Discussion, Demonstration -Response to teaching Verbalize Understanding WC - Visit Discharge Discharge Condition Stable Stable Ambulatory Status Ambulatory Ambulatory Transportation Private Auto Private Auto Medication Reconcilliation completed & No No provided to patient/care provider Clinical Summary of Care Provided Yes Yes Assessment/Plan Assessment/Plan (1) Abscess of left foot excluding toes: CODE(S): L02.612 - Cutaneous abscess of left foot (2) Delayed wound healing: CODE(S): T14.8XXD - Other injury of unspecified body region, subsequent encounter (3) Chronic ulcer of left foot with fat layer exposed: CODE(S): L97.522 - Non-pressure chronic ulcer of other part of left foot with fat layer exposed (4) HTN (hypertension): CODE(S): I10 - Essential (primary) hypertension QUALIFIERS: Hypertension type: primary hypertension Qualified Code(s): I10 - Essential (primary) hypertension (5) Diabetic ulcer of foot associated with diabetes mellitus due to underlying condition, with fat layer exposed: CODE(S): E08.621 - Diabetes mellitus due to underlying condition with foot ulcer; L97.502 - Non-pressure chronic ulcer of other part of unspecified foot with fat layer exposed QUALIFIERS: Diabetic foot ulcer location: midfoot Laterality: left Qualified Code(s): E08.621 - Diabetes mellitus due to underlying condition with foot ulcer; L97.422 - Non-pressure chronic ulcer of left heel and midfoot with fat layer exposed (6) Type 2 diabetes mellitus without complications: CODE(S): E11.9 - Type 2 diabetes mellitus without complications QUALIFIERS: Diabetes mellitus snf insulin use: without terminologist 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 There has been improvement since his last visit. At home wound-care instructions: Wash ulcer daily with antibacterial soap and water. Will have him continue to use Aquacel Extra to ulcer and cover with gauze and roll gauze to secure daily. Keep dressing clean and dry. His work boot was modified on 07/03/23 and again 12/25/23 to try to offload pressure. Will have him use single layer tubigrip medium compression to left LE. Discussed possibly using TCC for offloading in near future but he is unable to do so due to work. We also discussed that there may be a single vessel narrowing that could be preventing healing and talked about possible referral to Vascular surgery to CTA runoff. Also discussed surgical procedure proposed by podiatry to shave exostosis of bone that is likely causing ulcer and he declines at this time. Off-loading: The patient was instructed to avoid pressure and friction on the affected areas. Reposition every 2 hours at minimum. Avoid prolonged standing and/or dangling of legs. When seated, feet should be elevated at chest level. Frequent ambulation is encouraged. Diet: Patient encouraged to increase protein intake while taking caution to avoid high carbohydrate and/or sugar intake. Labs/cultures/imaging: Wound culture positive 03/27/23 and is currently on Doxycycline. Wound culture showed Staph and Strep and he was treated with Keflex based on sensitivities and use topical Gentamicin for 3 weeks. Wound culture done 09/18/23 was positive for staph epidermidis. He has been on cephalexin and doxycycline. Wound culture was positive for Enterococcus and Linezolid completed. Wound culture was positive and he will continue Flagyl, Cipro and hold cefdinir and decrease doxycycline to once/day. XR of foot was negative. MRI negative for osteomyelitis and arterial testing negative for arterial insufficiency. Repeat XR of foot was negative. Follow-up: Return in 1 week for wound care follow up. Return sooner or report to the emergency room should symptoms worsen, or new symptoms arise. Note: [employer] speech recognition chief scientific officer software was used to create portions of this document. Sound-alike and misspelled words, as well as other chief scientific officer errors may be contained in the documentation.
[2024-04-15 09:51] VITALS: BP 131/67; PULSE 73; RESP 18; TEMP 36.6
--- NOTE | 2024-04-15 13:14 | PCM.WC.PN ---
History of Present Illness Date of Service: 04/15/24 Chief Complaint: nonhealing wound left plantar foot History of Wound: Jose J is a 68 y/o gentleman that presents to the wound healing center for evaluation and treatment of a wound to his left plantar foot. He is a patient of Dr. Giordano. He has had a wound to this same area in February 2019 and was seen at [facility] and treated there for 9 weeks with Aquacel and was placed in a wedge shoe to offload his foot. He was treated for this same wound for almost a year at this wound center and was healed in May 2020 and returned in July and was treated until September. He has undergone vascular testing at [facility] in 2018 but not since that time. 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 He and his did not want to do surgery. He has managed to do well over the last 2 years until the end of October when the area became painful again and began draining. He saw Dr. Giordano and was treated with doxycycline which helped and they had been applying Aquacel that they had from previous treatment but it has not improved. He was treated with a second course of doxycycline and then referred here for treatment. He is still working and walking on his foot in a steel toe boot 4 days a week for 10 hours. He had an offloading pad in his work boot previously but no longer has this in place. He denies claudication with walking. He has moderate to heavy drainage from the ulcer. He has not had any wound cultures taken. 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 He denies fever, chill, nausea, vomiting, redness or odor. Subjective Subjective Jose J returns today for follow up of an ulcer on the bottom of his left foot. His ulcer and drainage has been unchanged since last visit. He continues to wear his modified work boot to alleviate pressure to the site of the ulcer of his left foot. He has been tolerating the Aquacel Extra to the ulcer. He denies fever, chills or odor. He had MRI on 10/02/23 which did not show any osteomyelitis of his foot. Arterial testing was also done and did not show any evidence of arterial insufficiency. HgbA1C was 6.5% on 10/09/23. Objective Data Objective Data Vital Signs: Vital Signs Temp Pulse Resp BP O2 Del Method 97.8 F 73 18 131/67 H Room Air 04/15/24 09:51 04/15/24 09:51 04/15/24 09:51 04/15/24 09:51 04/15/24 09:51 Oxygen Delivery Method Room Air Physical Exam Const alert, oriented x3 and no apparent distress General Appearance: cooperative and comfortable HEENT normocephalic and head/scalp atraumatic Resp normal respiratory effort Effort and Inspection: able to speak in complete sentences Auscultation: rales, rhonchi and diminished lung sounds Cardio regular rate and regular rhythm Skin Wounds: wounds noted Wound Narrative: as in clinical panel Psych mental status grossly normal, thought process normal, cooperative and affect normal Debridement Note Debridement Note Wound debrided: left lateral plantar ulcer Laterality: Left Type of Debridement: Excisional debridement Anesthesia Used: 5% Lidocaine Gel Depth: Down to and including healthy tissue and in the subcutaneous layer Percentage of wound debrided: 100 Instrument Used: #15 blade and Forceps Tissue Removed: Yellow slough, devitalized tissue Severity: Fat Layer Exposed Amount of bleeding with debridement: Mild Bleeding Controlled with: Compression and gauze Patient tolerated procedure: Patient tolerated procedure well Post-Debridement Measurements and Additional Note: Post-Debridement Measurements/Treatment - Nurse 1 - General Ulcer Assessment Start: 03/25/24 09:54 Freq: Status: Active Protocol: QUOC.AMADA Activity Type Activity Date Activity User E-sign Co-sign Detail Recorded Client Recorded Date Recorded By Document 03/25/24 09:54 RB [id number] 03/25/24 09:56 RB Document 04/01/24 09:53 KW [id number] 04/01/24 09:57 KW Document 04/08/24 09:53 ML [id number] 04/08/24 09:57 ML Document 04/15/24 09:51 KW [id number] 04/15/24 10:01 KW 03/25/24 04/01/24 04/08/24 09:54 09:53 09:53 - Today's Visit Information Type of service Follow-up Visit Follow-up Visit Follow-up Visit (Physician/NUCLEAR FUELS RECLAMATION ENGINEER (Physician/NUCLEAR FUELS RECLAMATION ENGINEER (Physician/NUCLEAR FUELS RECLAMATION ENGINEER ) ) ) Arrival Mode Ambulatory Ambulatory Ambulatory Transfer Assistance None None Accompanied by Patient Identification Verified (Name & Yes Yes Yes ) Patient Requires Transmission-Based No No Precautions Vital Signs Temperature (97.8 F-99.1 F) 97.8 F 97.1 F L 98.2 F Temperature Source Temporal Temporal Temporal Pulse Rate (60-100) 75 76 73 Pulse Location Monitor Monitor Monitor Respiratory Rate (12-18) 18 18 17 Respiratory rate source Observation Observation Observation Oxygen Delivery Method Room Air Blood Pressure (90/60-120/80) 133/71 H 120/70 120/60 Blood Pressure Mean (mm Hg) 91 86 80 Source Monitor Monitor Monitor Position Semi-Fowlers Semi-Fowlers Blood Pressure Location Left Arm Left Arm History Since Last Visit- (Skip if this is Patient's initial visit) Have you changed medications since your No No No last visit? Any new allergies or adverse reactions No No Had a fall/change in ADL's that may No No increase risk of falls Signs or symptoms of abuse and/or No No No neglect since last visit Have you been in the hospital since your No No No last visit? Has dressing in place as prescribed Yes Yes Yes Has compression in place as prescribed No Yes N/A Has offloadiing in place as prescribed Yes N/A N/A Experienced any changes in pain level or No No No management Left Footwear Regular Shoe Regular Shoe Right Footwear Regular Shoe Regular Shoe Pain Scale: 0-10 Numeric Is Patient Pain Free? Yes Yes No 04/15/24 09:51 WC - Today's Visit Information Type of service Follow-up Visit (Physician/NUCLEAR FUELS RECLAMATION ENGINEER ) Arrival Mode Ambulatory Transfer Assistance Accompanied by Patient Identification Verified (Name & Yes ) Patient Requires Transmission-Based Precautions Vital Signs Temperature (97.8 F-99.1 F) 97.8 F Temperature Source Temporal Pulse Rate (60-100) 73 Pulse Location Monitor Respiratory Rate (12-18) 18 Respiratory rate source Observation Oxygen Delivery Method Room Air Blood Pressure (90/60-120/80) 131/67 H Blood Pressure Mean (mm Hg) 88 Source Monitor Position Semi-Fowlers Blood Pressure Location Left Arm History Since Last Visit- (Skip if this is Patient's initial visit) Have you changed medications since your No last visit? Any new allergies or adverse reactions No Had a fall/change in ADL's that may No increase risk of falls Signs or symptoms of abuse and/or No neglect since last visit Have you been in the hospital since your No last visit? Has dressing in place as prescribed Yes Has compression in place as prescribed N/A Has offloadiing in place as prescribed N/A Experienced any changes in pain level or No management Left Footwear Regular Shoe Right Footwear Regular Shoe Pain Scale: 0-10 Numeric Is Patient Pain Free? Yes WC - Nurse 1 - General Ulcer Measurement Start: 03/25/24 09:54 Freq: Status: Active Protocol: Activity Type Activity Date Activity User E-sign Co-sign Detail Recorded Client Recorded Date Recorded By Document 03/25/24 09:54 RB [id number] 03/25/24 09:56 RB Document 04/01/24 09:53 KW [id number] 04/01/24 09:57 KW Document 04/08/24 09:53 ML [id number] 04/08/24 09:57 ML Document 04/15/24 09:51 KW [id number] 04/15/24 10:01 KW 03/25/24 04/01/24 04/08/24 09:54 09:53 09:53 Wound Center Nurse 1 #3 L Lateral Plantar Foot -Combined with other wound No -Current Size (cm) - Length 0.6 0.5 1.2 -Current Size (cm) - Width 0.9 1 2 -Current Size (cm) - Depth 0.1 0.1 0.2 -Total Square Cm 0.54 0.5 2.4 -Photo Taken Yes -Tunneling No -Undermining/Tunneling No -Circular Undermining No -Exudate Amt Medium Small Medium -Exudate Type Serosanguineous Serosanguineous Serous -Wound Margin Thickened Thickened Distinct, Outline Attached -Granulation Amt Medium (34-66%) Large (67-100%) Medium (34-66%) -Granulation Quality Verdon Verdon -Slough/Fibrin Yes Yes -Necrosis Amt Medium (34-66%) Medium (34-66%) -Necrotic Tissue Type Adherent Slough Adherent Slough -Structure Exposed N/A -Texture (Flory-wound Skin Appearance) Assessed,Callus Assessed,Not Assessed Assessed -Moisture (Flory-wound Skin Appearance) Assessed Assessed Assessed -Color (Flory-wound Skin Appearance) Assessed Assessed Assessed -Temperature (Flory-wound Skin No Abnormality No Abnormality No Abnormality Appearance) (Pt Warm) (Pt Warm) (Pt Warm) -Tenderness on Palpation (Flory-wound No No No Skin Appearance) -Ulcer Cleansing Wound Cleanser Rinsed/ Rinsed/ Irrigated with Irrigated with Saline Saline -Foul Odor after Cleansing No No No -Anesthetic Used 5% Lidocaine 5% Lidocaine 5% Lidocaine Gel Gel Gel 04/15/24 09:51 Wound Center Nurse 1 #3 L Lateral Plantar Foot -Combined with other wound -Current Size (cm) - Length 1 -Current Size (cm) - Width 0.8 -Current Size (cm) - Depth 0.1 -Total Square Cm 0.8 -Photo Taken -Tunneling -Undermining/Tunneling -Circular Undermining -Exudate Amt -Exudate Type Serosanguineous -Wound Margin Distinct, Outline Attached -Granulation Amt Large (67-100%) -Granulation Quality Verdon,Red -Slough/Fibrin -Necrosis Amt -Necrotic Tissue Type -Structure Exposed -Texture (Flory-wound Skin Appearance) Assessed -Moisture (Flory-wound Skin Appearance) Assessed -Color (Flory-wound Skin Appearance) Assessed -Temperature (Flory-wound Skin No Abnormality Appearance) (Pt Warm) -Tenderness on Palpation (Flory-wound No Skin Appearance) -Ulcer Cleansing Rinsed/ Irrigated with Saline -Foul Odor after Cleansing No -Anesthetic Used 5% Lidocaine Gel WC - Nurse 2 - General Ulcer CM Notes Start: 03/25/24 09:54 Freq: Status: Active Protocol: Activity Type Activity Date Activity User E-sign Co-sign Detail Recorded Client Recorded Date Recorded By Document 03/25/24 10:30 [id number] 03/25/24 10:43 Document 04/01/24 10:22 [id number] 04/01/24 10:40 Document 04/08/24 10:13 [id number] 04/08/24 10:31 Document 04/15/24 10:33 [id number] 04/15/24 10:42 03/25/24 04/01/24 04/08/24 10:30 10:22 10:13 Wound Center Nurse 2 #3 L Lateral Plantar Foot -Time 10:30 10:22 10:13 -Correct Patient Yes Yes Yes -Correct Side, Site, Position Yes Yes Yes -Correct Procedure Yes Yes Yes -Procedure Performed Yes Yes Yes -Type of Procedure Debridement Debridement Debridement -Clinical Debridement Subcutaneous Subcutaneous Subcutaneous -Tissue Removed Subcutaneous Subcutaneous Subcutaneous -Post Debridement (cm) - Length 1.5 2.0 1.0 -Post Debridement (cm) - Width 0.7 1.5 1.5 -Post Debridement (cm) - Depth 0.1 0.2 0.1 -Total Square (Post) (cm) 1.05 3.00 1.50 -Area of Debridement (cm) - Length 1.5 2.0 1.0 -Area of Debridement (cm) - Width 0.7 1.5 1.5 -Total Square (Area) (cm) 1.05 3.00 1.50 -Tunneling No No No -Undermining/Tunneling No No No -Circular Undermining No No No -Wound/Ulcer Outcome Not Healed Not Healed Not Healed -Ulcer Cleansing Rinsed/ Rinsed/ Rinsed/ Irrigated with Irrigated with Irrigated with Saline Saline Saline -Foul Odor after Cleansing No No No -Bioengineered Tissue No No No -Bleeding Controlled with Pressure Pressure, Pressure SURGIFOAM -Treatment Response Procedure Procedure Procedure Tolerated Well Tolerated Well Tolerated Well -Debridement - Subq, 1st 20sq cm Yes Yes Yes Pain Scale: 0-10 Numeric Is Patient Pain Free? Yes Yes Yes 04/15/24 10:33 Wound Center Nurse 2 #3 L Lateral Plantar Foot -Time 10:33 -Correct Patient Yes -Correct Side, Site, Position Yes -Correct Procedure Yes -Procedure Performed Yes -Type of Procedure Debridement -Clinical Debridement Subcutaneous -Tissue Removed Subcutaneous -Post Debridement (cm) - Length 0.9 -Post Debridement (cm) - Width 1.0 -Post Debridement (cm) - Depth 0.1 -Total Square (Post) (cm) 0.90 -Area of Debridement (cm) - Length 0.9 -Area of Debridement (cm) - Width 1.0 -Total Square (Area) (cm) 0.90 -Tunneling No -Undermining/Tunneling No -Circular Undermining No -Wound/Ulcer Outcome Not Healed -Ulcer Cleansing Rinsed/ Irrigated with Saline -Foul Odor after Cleansing No -Bioengineered Tissue No -Bleeding Controlled with Pressure -Treatment Response Procedure Tolerated Well -Debridement - Subq, 1st 20sq cm Yes Pain Scale: 0-10 Numeric Is Patient Pain Free? Yes - Nurse 3 - General Ulcer D/C NN Start: 03/25/24 09:54 Freq: Status: Active Protocol: Activity Type Activity Date Activity User E-sign Co-sign Detail Recorded Client Recorded Date Recorded By Document 03/25/24 11:21 RB [id number] 03/25/24 11:23 RB Document 04/01/24 10:57 RB [id number] 04/01/24 10:57 RB Document 04/08/24 10:42 KW [id number] 04/08/24 10:42 KW Document 04/15/24 11:04 RB [id number] 04/15/24 11:05 RB 03/25/24 04/01/24 04/08/24 11:21 10:57 10:42 Wound Care Center Nurse 3 #3 L Lateral Plantar Foot -Ulcer Cleansing Rinsed/ Irrigated with Saline -Primary Dressing Applied Aquacel Extra Aquacel Extra Aquacel Extra -Primary Dressing Covered/Secured with Dry Gauze,Dry Dry Gauze,Dry Dry Gauze & Gauze & Roll Gauze & Roll Roll Gauze, Gauze,Secured Gauze,Secured Secured with with Tape with Tape Tape -Aquacel Extra 1 1 1 -Wound Comment(s) surgaform left in place per Dr Plummer ordered Treatment Response Procedure Procedure Tolerated Well Tolerated Well Pain Scale: 0-10 Numeric Is Patient Pain Free? Yes Yes Yes Teaching: Wound Center Dressing Your Wound -Person Taught Patient -Teaching Method Discussion, Demonstration -Response to teaching Verbalize Understanding WC - Visit Discharge Discharge Condition Stable Stable Ambulatory Status Ambulatory Ambulatory Transportation Private Auto Private Auto Medication Reconcilliation completed & No No provided to patient/care provider Clinical Summary of Care Provided Yes Yes 04/15/24 11:04 Wound Care Center Nurse 3 #3 L Lateral Plantar Foot -Ulcer Cleansing Rinsed/ Irrigated with Saline -Primary Dressing Applied Aquacel Extra -Primary Dressing Covered/Secured with Dry Gauze,Dry Gauze & Roll Gauze,Secured with Tape -Aquacel Extra 1 -Wound Comment(s) Treatment Response Procedure Tolerated Well Pain Scale: 0-10 Numeric Is Patient Pain Free? Yes Teaching: Wound Center Dressing Your Wound -Person Taught -Teaching Method -Response to teaching WC - Visit Discharge Discharge Condition Stable Ambulatory Status Ambulatory Transportation Private Auto Medication Reconcilliation completed & No provided to patient/care provider Clinical Summary of Care Provided Yes Assessment/Plan Assessment/Plan (1) Abscess of left foot excluding toes: CODE(S): L02.612 - Cutaneous abscess of left foot (2) Delayed wound healing: CODE(S): T14.8XXD - Other injury of unspecified body region, subsequent encounter (3) Chronic ulcer of left foot with fat layer exposed: CODE(S): L97.522 - Non-pressure chronic ulcer of other part of left foot with fat layer exposed (4) HTN (hypertension): CODE(S): I10 - Essential (primary) hypertension QUALIFIERS: Hypertension type: primary hypertension Qualified Code(s): I10 - Essential (primary) hypertension (5) Diabetic ulcer of foot associated with diabetes mellitus due to underlying condition, with fat layer exposed: CODE(S): E08.621 - Diabetes mellitus due to underlying condition with foot ulcer; L97.502 - Non-pressure chronic ulcer of other part of unspecified foot with fat layer exposed QUALIFIERS: Diabetic foot ulcer location: midfoot Laterality: left Qualified Code(s): E08.621 - Diabetes mellitus due to underlying condition with foot ulcer; L97.422 - Non-pressure chronic ulcer of left heel and midfoot with fat layer exposed (6) Type 2 diabetes mellitus without complications: CODE(S): E11.9 - Type 2 diabetes mellitus without complications QUALIFIERS: Diabetes mellitus nursing home insulin use: without nursing home 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 There has been improvement since his last visit. At home wound-care instructions: Wash ulcer daily with antibacterial soap and water. Will have him continue to use Aquacel Extra to ulcer and cover with gauze and roll gauze to secure daily. Keep dressing clean and dry. His work boot was modified on 07/03/23 and again 12/25/23 to try to offload pressure. Will have him use single layer tubigrip medium compression to left LE. Discussed possibly using TCC for offloading in near future but he is unable to do so due to work. We also discussed that there may be a single vessel narrowing that could be preventing healing and talked about possible referral to Vascular surgery to CTA runoff. Also discussed surgical procedure proposed by podiatry to shave exostosis of bone that is likely causing ulcer and he declines at this time. Off-loading: The patient was instructed to avoid pressure and friction on the affected areas. Reposition every 2 hours at minimum. Avoid prolonged standing and/or dangling of legs. When seated, feet should be elevated at chest level. Frequent ambulation is encouraged. Diet: Patient encouraged to increase protein intake while taking caution to avoid high carbohydrate and/or sugar intake. Labs/cultures/imaging: Wound culture positive 03/27/23 and is currently on Doxycycline. Wound culture showed Staph and Strep and he was treated with Keflex based on sensitivities and use topical Gentamicin for 3 weeks. Wound culture done 09/18/23 was positive for staph epidermidis. He has been on cephalexin and doxycycline. Wound culture was positive for Enterococcus and Linezolid completed. Wound culture was positive and he will continue Flagyl, Cipro and hold cefdinir and decrease doxycycline to once/day. XR of foot was negative. MRI negative for osteomyelitis and arterial testing negative for arterial insufficiency. Repeat XR of foot was negative. Follow-up: Return in 2 weeks for wound care follow up. Return sooner or report to the emergency room should symptoms worsen, or new symptoms arise. Note: [employer] speech recognition needle process felt goods supervisor software was used to create portions of this document. Sound-alike and misspelled words, as well as other needle process felt goods supervisor errors may be contained in the documentation.
== END 2024-04-23 23:59 | disposition home or self-care (01) ==
LOC: WC 10:00
PROVIDERS: PCP Family Medicine; Referring Provider Family Medicine; Visit Provider Family Medicine
DX: E11.621 Type 2 diabetes mellitus with foot ulcer (principal); L97.422 Non-pressure chronic ulcer of left heel and midfoot with fat layer exposed; Z79.899 Other long term (current) drug therapy
CPT/HCPCS: 11042; 73630

== ENCOUNTER 2024-05-20 10:15 | Outpatient (RCR) | payer BC, SELFPAY ==
[2024-04-24 00:39] VITALS: BP 127/57; PULSE 76; RESP 18; TEMP 36.3
[2024-04-29 09:56] VITALS: BP 134/73; PULSE 78; RESP 18; TEMP 36.3
--- NOTE | 2024-04-29 15:13 | PN.PCM_ITS ---
History of Present Illness Date of Service: 04/29/24 Chief Complaint: nonhealing wound left plantar foot History of Wound: Jose J is a 68 y/o gentleman that presents to the wound healing center for evaluation and treatment of a wound to his left plantar foot. He is a patient of Dr. Giordano. He has had a wound to this same area in February 2019 and was seen at [facility] and treated there for 9 weeks with Aquacel and was placed in a wedge shoe to offload his foot. He was treated for this same wound for almost a year at this wound center and was healed in May 2020 and returned in July and was treated until September. He has undergone vascular testing at [facility] in 2018 but not since that time. 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 He and his did not want to do surgery. He has managed to do well over the last 2 years until the end of October when the area became painful again and began draining. He saw Dr. Giordano and was treated with doxycycline which helped and they had been applying Aquacel that they had from previous treatment but it has not improved. He was treated with a second course of doxycycline and then referred here for treatment. He is still working and walking on his foot in a steel toe boot 4 days a week for 10 hours. He had an offloading pad in his work boot previously but no longer has this in place. He denies claudication with walking. He has moderate to heavy drainage from the ulcer. He has not had any wound cultures taken. 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 He denies fever, chill, nausea, vomiting, redness or odor. Subjective Subjective Jose J returns today for follow up of an ulcer on the bottom of his left foot. His ulcer and drainage has worsened since last visit. He continues to wear his modified work boot to alleviate pressure to the site of the ulcer of his left foot. He has been tolerating the Aquacel Extra to the ulcer. He denies fever, chills or odor. He had MRI on 10/02/23 which did not show any osteomyelitis of his foot. Arterial testing was also done and did not show any evidence of arterial insufficiency. HgbA1C was 6.5% on 10/09/23. Objective Data Objective Data Vital Signs: Vital Signs Temp Pulse Resp BP O2 Del Method 97.3 F L 78 18 134/73 H Room Air 04/29/24 09:56 04/29/24 09:56 04/29/24 09:56 04/29/24 09:56 04/29/24 09:56 Oxygen Delivery Method Room Air Physical Exam Const alert, oriented x3 and no apparent distress General Appearance: cooperative and comfortable HEENT normocephalic and head/scalp atraumatic Resp normal respiratory effort Effort and Inspection: able to speak in complete sentences Auscultation: rales, rhonchi and diminished lung sounds Cardio regular rate and regular rhythm Skin Wounds: wounds noted Wound Narrative: as in clinical panel, blistered area with bloody drainage and callus formation Psych mental status grossly normal, thought process normal, cooperative and affect normal Debridement Note Debridement Note Wound debrided: left plantar lateral foot ulcer Laterality: Left Wound Grade/Stage: Luther grade 1 Type of Debridement: Excisional debridement Anesthesia Used: 5% Lidocaine Gel Depth: Down to and including healthy tissue and in the subcutaneous layer Percentage of wound debrided: 100 Instrument Used: #15 blade and Forceps Tissue Removed: Yellow slough, devitalized tissue Severity: Fat Layer Exposed Amount of bleeding with debridement: Moderate Bleeding Controlled with: Gel Foam Patient tolerated procedure: Patient tolerated procedure well Post-Debridement Measurements and Additional Note: Post-Debridement Measurements/Treatment QUOC - Nurse 1 - General Ulcer Assessment Start: 04/29/24 09:55 Freq: Status: Active Protocol: KANIKA Activity Type Activity Date Activity User E-sign Co-sign Detail Recorded Client Recorded Date Recorded By Document 04/29/24 09:56 [id number] 04/29/24 10:00 KW 04/29/24 09:56 - Today's Visit Information Type of service Follow-up Visit (Physician/GRAPHICS EDITOR ) Arrival Mode Ambulatory Accompanied by Patient Identification Verified (Name & Yes ) Vital Signs Temperature (97.8 F-99.1 F) 97.3 F L Temperature Source Temporal Pulse Rate (60-100) 78 Pulse Location Monitor Respiratory Rate (12-18) 18 Respiratory rate source Observation Oxygen Delivery Method Room Air Blood Pressure (90/60-120/80) 134/73 H Blood Pressure Mean (mm Hg) 93 Source Monitor Position Sitting Blood Pressure Location Left Arm History Since Last Visit- (Skip if this is Patient's initial visit) Have you changed medications since your No last visit? Any new allergies or adverse reactions No Had a fall/change in ADL's that may No increase risk of falls Signs or symptoms of abuse and/or No neglect since last visit Have you been in the hospital since your No last visit? Has dressing in place as prescribed Yes Has compression in place as prescribed Yes Has offloadiing in place as prescribed N/A Experienced any changes in pain level or No management Left Footwear Regular Shoe Right Footwear Regular Shoe Pain Scale: 0-10 Numeric Is Patient Pain Free? Yes WC - Nurse 1 - General Ulcer Measurement Start: 04/29/24 09:55 Freq: Status: Active Protocol: Activity Type Activity Date Activity User E-sign Co-sign Detail Recorded Client Recorded Date Recorded By Document 04/29/24 09:56 KW [id number] 04/29/24 10:00 KW 04/29/24 09:56 Wound Center Nurse 1 #3 L Lateral Plantar Foot -Current Size (cm) - Length 3.5 -Current Size (cm) - Width 2.5 -Current Size (cm) - Depth 0.1 -Total Square Cm 8.75 -Undermining/Tunneling Yes -Undermining/Tunneling Starts (O'clock 12 ) -Undermining/Tunneling Ends (O'clock) 1 -Maximum Distance (cm) 2 -Exudate Amt Small -Exudate Type Purulent -Wound Margin Thickened -Granulation Amt Large (67-100%) -Granulation Quality Red -Texture (Flory-wound Skin Appearance) Callus -Moisture (Flory-wound Skin Appearance) Assessed -Color (Flory-wound Skin Appearance) Assessed, Ecchymosis -Temperature (Flory-wound Skin No Abnormality Appearance) (Pt Warm) -Tenderness on Palpation (Flory-wound No Skin Appearance) -Ulcer Cleansing Rinsed/ Irrigated with Saline -Foul Odor after Cleansing No -Anesthetic Used 5% Lidocaine Gel WC - Nurse 2 - General Ulcer CM Notes Start: 04/29/24 09:55 Freq: Status: Active Protocol: Activity Type Activity Date Activity User E-sign Co-sign Detail Recorded Client Recorded Date Recorded By Document 04/29/24 10:26 GM [id number] 04/29/24 10:33 GM Edit Result 04/29/24 10:26 GM (1) [id number] 04/29/24 10:34 GM (1) #3 L Lateral Plantar Foot - Bleeding Controlled with Pressure => Pressure,[id number] 04/29/24 10:26 Wound Center Nurse 2 -Time 10:24 -Correct Patient Yes -Correct Side, Site, Position Yes -Correct Procedure Yes -Procedure Performed Yes -Type of Procedure Debridement -Clinical Debridement Subcutaneous -Tissue Removed Subcutaneous -Post Debridement (cm) - Length 1.8 -Post Debridement (cm) - Width 1.5 -Post Debridement (cm) - Depth 0.2 -Total Square (Post) (cm) 2.70 -Area of Debridement (cm) - Length 1.8 -Area of Debridement (cm) - Width 1.5 -Total Square (Area) (cm) 2.70 -Tunneling No -Undermining/Tunneling No -Circular Undermining No -Wound/Ulcer Outcome Not Healed -Ulcer Cleansing Rinsed/ Irrigated with Saline -Foul Odor after Cleansing No -Bioengineered Tissue No -Bleeding Controlled with Pressure, SURGIFOAM -Treatment Response Procedure Tolerated Well -Offloading No -Debridement - Subq, 1st 20sq cm Yes Pain Scale: 0-10 Numeric Is Patient Pain Free? Yes - Nurse 3 - General Ulcer D/C NN Start: 04/29/24 09:55 Freq: Status: Active Protocol: Activity Type Activity Date Activity User E-sign Co-sign Detail Recorded Client Recorded Date Recorded By Document 04/29/24 10:52 [id number] 04/29/24 10:53 RB 04/29/24 10:52 Wound Care Center Nurse 3 #3 L Lateral Plantar Foot -Ulcer Cleansing Rinsed/ Irrigated with Saline -Primary Dressing Applied Aquacel Extra -Primary Dressing Covered/Secured with Dry Gauze,Dry Gauze & Roll Gauze,Secured with Tape -Aquacel Extra 1 Treatment Response Procedure Tolerated Well Pain Scale: 0-10 Numeric Is Patient Pain Free? Yes - Visit Discharge Discharge Condition Stable Ambulatory Status Ambulatory Transportation Private Auto Medication Reconcilliation completed & No provided to patient/care provider Clinical Summary of Care Provided Yes Assessment/Plan Assessment/Plan (1) Abscess of left foot excluding toes: CODE(S): L02.612 - Cutaneous abscess of left foot (2) Delayed wound healing: CODE(S): T14.8XXD - Other injury of unspecified body region, subsequent encounter (3) Chronic ulcer of left foot with fat layer exposed: CODE(S): L97.522 - Non-pressure chronic ulcer of other part of left foot with fat layer exposed (4) HTN (hypertension): CODE(S): I10 - Essential (primary) hypertension QUALIFIERS: Hypertension type: primary hypertension Qualified Code(s): I10 - Essential (primary) hypertension (5) Diabetic ulcer of foot associated with diabetes mellitus due to underlying condition, with fat layer exposed: CODE(S): E08.621 - Diabetes mellitus due to underlying condition with foot ulcer; L97.502 - Non-pressure chronic ulcer of other part of unspecified foot with fat layer exposed QUALIFIERS: Diabetic foot ulcer location: midfoot Laterality: left Qualified Code(s): E08.621 - Diabetes mellitus due to underlying condition with foot ulcer; L97.422 - Non-pressure chronic ulcer of left heel and midfoot with fat layer exposed (6) Type 2 diabetes mellitus without complications: CODE(S): E11.9 - Type 2 diabetes mellitus without complications QUALIFIERS: Diabetes mellitus joint terminal attack controller insulin use: without residential 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 There has been worsening since his last visit. At home wound-care instructions: Wash ulcer daily with antibacterial soap and water. Will have him continue to use Aquacel Extra to ulcer and cover with gauze and roll gauze to secure daily. Keep dressing clean and dry. His work boot was modified on 07/03/23 and again 12/25/23 to try to offload pressure. Will have him use single layer tubigrip medium compression to left LE. Discussed possibly using TCC for offloading in near future but he is unable to do so due to work. We also discussed that there may be a single vessel narrowing that could be preventing healing and talked about possible referral to Vascular surgery to do CTA runoff. Also discussed surgical procedure proposed by podiatry to shave exostosis of bone that is likely causing ulcer and he declines at this time. Off-loading: The patient was instructed to avoid pressure and friction on the affected areas. Reposition every 2 hours at minimum. Avoid prolonged standing and/or dangling of legs. When seated, feet should be elevated at chest level. Frequent ambulation is encouraged. Diet: Patient encouraged to increase protein intake while taking caution to avoid high carbohydrate and/or sugar intake. Labs/cultures/imaging: Wound culture positive 03/27/23 and is currently on Doxycycline. Wound culture showed Staph and Strep and he was treated with Keflex based on sensitivities and use topical Gentamicin for 3 weeks. Wound culture done 09/18/23 was positive for staph epidermidis. He has been on cephalexin and doxycycline. Wound culture was positive for Enterococcus and Linezolid completed. Wound culture was positive and he will continue Flagyl, Cipro and hold cefdinir and decrease doxycycline to once/day. He is back on Keflex and doxycycline. Wound culture taken today. XR of foot was negative. MRI negative for osteomyelitis and arterial testing negative for arterial insufficiency. Repeat XR of foot was negative. Follow-up: Return in 1 week for wound care follow up. Return sooner or report to the emergency room should symptoms worsen, or new symptoms arise. Note: [employer] speech recognition talent acquisition specialist software was used to create portions of this document. Sound-alike and misspelled words, as well as other talent acquisition specialist errors may be contained in the documentation.
--- NOTE | 2024-05-03 14:30 | WC ---
PHOTO 04/29/24 LATERAL FOOT
[2024-05-06 09:51] VITALS: BP 115/64; PULSE 127; RESP 16; TEMP 36.1
--- NOTE | 2024-05-06 12:29 | PCM.WC.PN ---
History of Present Illness Date of Service: 05/06/24 Chief Complaint: nonhealing wound left plantar foot History of Wound: Jose J is a 68 y/o gentleman that presents to the wound healing center for evaluation and treatment of a wound to his left plantar foot. He is a patient of Dr. Giordano. He has had a wound to this same area in February 2019 and was seen at [facility] and treated there for 9 weeks with Aquacel and was placed in a wedge shoe to offload his foot. He was treated for this same wound for almost a year at this wound center and was healed in May 2020 and returned in July and was treated until September. He had undergone vascular testing at [facility] in 2018 and this has been repeated 09/2023 without significant arterial disease. 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 He and his did not want to do surgery. He has managed to do well over the last 2 years until the end of October when the area became painful again and began draining. He saw Dr. Giordano and was treated with doxycycline which helped and they had been applying Aquacel that they had from previous treatment but it has not improved. He was treated with a second course of doxycycline and then referred here for treatment. He is still working and walking on his foot in a steel toe boot 4 days a week for 10 hours. He had an offloading pad in his work boot previously but no longer has this in place. He denies claudication with walking. He has moderate to heavy drainage from the ulcer. He has not had any wound cultures taken. 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 He denies fever, chill, nausea, vomiting, redness or odor. Subjective Subjective Jose J returns today for follow up of an ulcer on the bottom of his left foot. His ulcer and drainage has improved since last visit. He continues to wear his modified work boot to alleviate pressure to the site of the ulcer of his left foot. He has been tolerating the Aquacel Extra to the ulcer. His wound culture was positive for Staph epidermidis and negative for anaerobic bacteria. He is going to start Linezolid. He denies fever, chills or odor. He had MRI on 10/02/23 which did not show any osteomyelitis of his foot. Arterial testing was also done and did not show any evidence of arterial insufficiency. HgbA1C was 6.5% on 10/09/23. Objective Data Objective Data Vital Signs: Vital Signs Temp Pulse Resp BP O2 Del Method 97.0 F L 127 H 16 115/64 Room Air 05/06/24 09:51 05/06/24 09:51 05/06/24 09:51 05/06/24 09:51 05/06/24 09:51 Oxygen Delivery Method Room Air Lab / Micro Data Micro: Microbiology 04/29/24 10:26 Wound - Left Foot Gram Stain - Final 04/29/24 10:26 Wound - Left Foot Wound Culture - Final Staphylococcus epidermidis 04/29/24 10:26 Wound - Left Foot Anaerobic Culture - Final No growth in 5 days. Physical Exam Const alert, oriented x3 and no apparent distress General Appearance: cooperative and comfortable HEENT normocephalic and head/scalp atraumatic Resp normal respiratory effort Effort and Inspection: able to speak in complete sentences Auscultation: rales, rhonchi and diminished lung sounds Cardio regular rate and regular rhythm Skin Wounds: wounds noted Wound Narrative: as in clinical panel, blistered area with bloody drainage and callus formation Psych mental status grossly normal, thought process normal, cooperative and affect normal Debridement Note Debridement Note Wound debrided: left plantar lateral foot ulcer Laterality: Left Type of Debridement: Excisional debridement Anesthesia Used: 4% Lidocaine Solution and 5% Lidocaine Gel Depth: Down to and including healthy tissue and in the subcutaneous layer Percentage of wound debrided: 100 Instrument Used: 5mm curette Severity: Fat Layer Exposed Amount of bleeding with debridement: Mild Bleeding Controlled with: Compression and gauze Patient tolerated procedure: Patient tolerated procedure well Post-Debridement Measurements and Additional Note: Post-Debridement Measurements/Treatment WC - Nurse 1 - General Ulcer Assessment Start: 04/29/24 09:55 Freq: Status: Active Protocol: KANIKA Activity Type Activity Date Activity User E-sign Co-sign Detail Recorded Client Recorded Date Recorded By Document 04/29/24 09:56 KW [id number] 04/29/24 10:00 KW Document 05/06/24 09:51 KW [id number] 05/06/24 09:59 KW 04/29/24 05/06/24 09:56 09:51 - Today's Visit Information Type of service Follow-up Visit Follow-up Visit (Physician/DEVELOPMENT COORDINATOR (Physician/DEVELOPMENT COORDINATOR ) ) Arrival Mode Ambulatory Ambulatory Accompanied by Patient Identification Verified (Name & Yes Yes ) Vital Signs Temperature (97.8 F-99.1 F) 97.3 F L 97.0 F L Temperature Source Temporal Temporal Pulse Rate (60-100) 78 127 H Pulse Location Monitor Monitor Respiratory Rate (12-18) 18 16 Respiratory rate source Observation Observation Oxygen Delivery Method Room Air Room Air Blood Pressure (90/60-120/80) 134/73 H 115/64 Blood Pressure Mean (mm Hg) 93 81 Source Monitor Monitor Position Sitting Sitting Blood Pressure Location Left Arm Left Arm History Since Last Visit- (Skip if this is Patient's initial visit) Have you changed medications since your No No last visit? Any new allergies or adverse reactions No No Had a fall/change in ADL's that may No No increase risk of falls Signs or symptoms of abuse and/or No No neglect since last visit Have you been in the hospital since your No No last visit? Has dressing in place as prescribed Yes Yes Has compression in place as prescribed Yes N/A Has offloadiing in place as prescribed N/A N/A Experienced any changes in pain level or No No management Left Footwear Regular Shoe Regular Shoe Right Footwear Regular Shoe Regular Shoe Pain Scale: 0-10 Numeric Is Patient Pain Free? Yes Yes - Nurse 1 - General Ulcer Measurement Start: 04/29/24 09:55 Freq: Status: Active Protocol: Activity Type Activity Date Activity User E-sign Co-sign Detail Recorded Client Recorded Date Recorded By Document 04/29/24 09:56 KW [id number] 04/29/24 10:00 KW Document 05/06/24 09:51 KW [id number] 05/06/24 09:59 KW 04/29/24 05/06/24 09:56 09:51 Wound Center Nurse 1 #3 L Lateral Plantar Foot -Current Size (cm) - Length 3.5 1.5 -Current Size (cm) - Width 2.5 1 -Current Size (cm) - Depth 0.1 0.2 -Total Square Cm 8.75 1.5 -Date of Last Picture (Recall this 05/06/24 field) -Undermining/Tunneling Yes -Undermining/Tunneling Starts (O'clock 12 ) -Undermining/Tunneling Ends (O'clock) 1 -Maximum Distance (cm) 2 -Exudate Amt Small Small -Exudate Type Purulent Serosanguineous -Wound Margin Thickened Distinct, Outline Attached -Granulation Amt Large (67-100%) Large (67-100%) -Granulation Quality Red Red -Texture (Flory-wound Skin Appearance) Callus Callus -Moisture (Flory-wound Skin Appearance) Assessed Assessed -Color (Flory-wound Skin Appearance) Assessed, Assessed Ecchymosis -Temperature (Flory-wound Skin No Abnormality No Abnormality Appearance) (Pt Warm) (Pt Warm) -Tenderness on Palpation (Flory-wound No No Skin Appearance) -Ulcer Cleansing Rinsed/ Rinsed/ Irrigated with Irrigated with Saline Saline -Foul Odor after Cleansing No No -Anesthetic Used 5% Lidocaine 5% Lidocaine Gel Gel WC - Nurse 2 - General Ulcer CM Notes Start: 04/29/24 09:55 Freq: Status: Active Protocol: Activity Type Activity Date Activity User E-sign Co-sign Detail Recorded Client Recorded Date Recorded By Document 04/29/24 10:26 GM [id number] 04/29/24 10:33 GM Edit Result 04/29/24 10:26 GM (1) [id number] 04/29/24 10:34 GM Document 05/06/24 10:45 GM [id number] 05/06/24 10:54 GM (1) #3 L Lateral Plantar Foot - Bleeding Controlled with Pressure => Pressure,[id number] 04/29/24 05/06/24 10:26 10:45 Wound Center Nurse 2 #3 L Lateral Plantar Foot -Time 10:24 10:46 -Correct Patient Yes Yes -Correct Side, Site, Position Yes Yes -Correct Procedure Yes Yes -Procedure Performed Yes Yes -Type of Procedure Debridement Debridement -Clinical Debridement Subcutaneous Subcutaneous -Tissue Removed Subcutaneous Subcutaneous -Post Debridement (cm) - Length 1.8 1.3 -Post Debridement (cm) - Width 1.5 1.3 -Post Debridement (cm) - Depth 0.2 0.2 -Total Square (Post) (cm) 2.70 1.69 -Area of Debridement (cm) - Length 1.8 1.3 -Area of Debridement (cm) - Width 1.5 1.3 -Total Square (Area) (cm) 2.70 1.69 -Tunneling No No -Undermining/Tunneling No No -Circular Undermining No No -Wound/Ulcer Outcome Not Healed Not Healed -Ulcer Cleansing Rinsed/ Rinsed/ Irrigated with Irrigated with Saline Saline -Foul Odor after Cleansing No No -Bioengineered Tissue No No -Bleeding Controlled with Pressure, Pressure SURGIFOAM -Treatment Response Procedure Procedure Tolerated Well Tolerated Well -Offloading No -Debridement - Subq, 1st 20sq cm Yes Yes Pain Scale: 0-10 Numeric Is Patient Pain Free? Yes Yes - Nurse 3 - General Ulcer D/C NN Start: 04/29/24 09:55 Freq: Status: Active Protocol: Activity Type Activity Date Activity User E-sign Co-sign Detail Recorded Client Recorded Date Recorded By Document 04/29/24 10:52 RB [id number] 04/29/24 10:53 RB Edit Result 04/29/24 10:52 RB (1) [id number] 05/06/24 09:07 GM Document 05/06/24 11:08 GM [id number] 05/06/24 11:09 GM (1) #3 L Lateral Plantar Foot - Primary Dressing Applied Aquacel Extra => Aquacel Extra, => Surgifoam - Surgifoam 12-7mm (3/4 x 2 3/8) => 1 04/29/24 05/06/24 10:52 11:08 Wound Care Center Nurse 3 #3 L Lateral Plantar Foot -Ulcer Cleansing Rinsed/ Not Cleansed Irrigated with Saline -Foul Odor after Cleansing No -Negative Pressure Wound Therapy N/A -Primary Dressing Applied Aquacel Extra, Aquacel Extra Surgifoam -Primary Dressing Covered/Secured with Dry Gauze,Dry Dry Gauze & Gauze & Roll Roll Gauze, Gauze,Secured Secured with with Tape Tape -Aquacel Extra 1 1 -Surgifoam 12-7mm (3/4 x 2 3/8) 1 Treatment Response Procedure Tolerated Well Pain Scale: 0-10 Numeric Is Patient Pain Free? Yes Yes - Visit Discharge Discharge Condition Stable Stable Ambulatory Status Ambulatory Ambulatory Transportation Private Auto Private Auto Medication Reconcilliation completed & No provided to patient/care provider Clinical Summary of Care Provided Yes Assessment/Plan Assessment/Plan (1) Abscess of left foot excluding toes: CODE(S): L02.612 - Cutaneous abscess of left foot (2) Delayed wound healing: CODE(S): T14.8XXD - Other injury of unspecified body region, subsequent encounter (3) Chronic ulcer of left foot with fat layer exposed: CODE(S): L97.522 - Non-pressure chronic ulcer of other part of left foot with fat layer exposed (4) HTN (hypertension): CODE(S): I10 - Essential (primary) hypertension QUALIFIERS: Hypertension type: primary hypertension Qualified Code(s): I10 - Essential (primary) hypertension (5) Diabetic ulcer of foot associated with diabetes mellitus due to underlying condition, with fat layer exposed: CODE(S): E08.621 - Diabetes mellitus due to underlying condition with foot ulcer; L97.502 - Non-pressure chronic ulcer of other part of unspecified foot with fat layer exposed QUALIFIERS: Diabetic foot ulcer location: midfoot Laterality: left Qualified Code(s): E08.621 - Diabetes mellitus due to underlying condition with foot ulcer; L97.422 - Non-pressure chronic ulcer of left heel and midfoot with fat layer exposed (6) Type 2 diabetes mellitus without complications: CODE(S): E11.9 - Type 2 diabetes mellitus without complications QUALIFIERS: Diabetes mellitus terminal makeup operator insulin use: without terminal makeup operator 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 There has been improvement since his last visit. At home wound-care instructions: Wash ulcer daily with antibacterial soap and water. Will have him continue to use Aquacel Extra to ulcer and cover with gauze and roll gauze to secure daily. Keep dressing clean and dry. His work boot was modified on 07/03/23 and again 12/25/23 to try to offload pressure. Will have him use single layer tubigrip medium compression to left LE. He reports increased swelling in his ankle and leg when wearing the tubigrip compression so has stopped wearing. Discussed possibly using TCC for offloading in near future but he is unable to do so due to work. We also discussed that there may be a single vessel narrowing that could be preventing healing and talked about possible referral to Vascular surgery to do CTA runoff. Also discussed surgical procedure proposed by podiatry to shave exostosis of bone that is likely causing ulcer and he declines at this time. Off-loading: The patient was instructed to avoid pressure and friction on the affected areas. Reposition every 2 hours at minimum. Avoid prolonged standing and/or dangling of legs. When seated, feet should be elevated at chest level. Frequent ambulation is encouraged. Diet: Patient encouraged to increase protein intake while taking caution to avoid high carbohydrate and/or sugar intake. Labs/cultures/imaging: Wound culture positive 03/27/23 and is currently on Doxycycline. Wound culture showed Staph and Strep and he was treated with Keflex based on sensitivities and use topical Gentamicin for 3 weeks. Wound culture done 09/18/23 was positive for staph epidermidis. He has been on cephalexin and doxycycline. Wound culture was positive for Enterococcus and Linezolid completed. Wound culture was positive and he will continue Flagyl, Cipro and hold cefdinir and decrease doxycycline to once/day. His put him back on Keflex and doxycycline when his ulcer worsened over . Wound culture on 04/29/24 was positive for Staph epidermidis and he is going to start on Linezolid today. XR of foot was negative. MRI negative for osteomyelitis and arterial testing negative for arterial insufficiency. Repeat XR of foot was negative. Follow-up: Return in 1 week for wound care follow up. Return sooner or report to the emergency room should symptoms worsen, or new symptoms arise. Note: [employer] speech recognition cutting and splicing supervisor software was used to create portions of this document. Sound-alike and misspelled words, as well as other cutting and splicing supervisor errors may be contained in the documentation.
[2024-05-13 09:51] VITALS: BP 130/54; PULSE 78; RESP 18; TEMP 36.4
--- NOTE | 2024-05-13 12:46 | PN.PCM_ITS ---
History of Present Illness Date of Service: 05/13/24 Chief Complaint: nonhealing wound left plantar foot History of Wound: Jose J is a 68 y/o gentleman that presents to the wound healing center for evaluation and treatment of a wound to his left plantar foot. He is a patient of Dr. Giordano. He has had a wound to this same area in February 2019 and was seen at [facility] [place] and treated there for 9 weeks with Aquacel and was placed in a wedge shoe to offload his foot. He was treated for this same wound for almost a year at this wound center and was healed in May 2020 and returned in July and was treated until September. He had undergone vascular testing at [facility] in 2018 and this has been repeated 09/2023 without significant arterial disease. 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 He and his did not want to do surgery. He has managed to do well over the last 2 years until the end of October when the area became painful again and began draining. He saw Dr. Giordano and was treated with doxycycline which helped and they had been applying Aquacel that they had from previous treatment but it has not improved. He was treated with a second course of doxycycline and then referred here for treatment. He is still working and walking on his foot in a steel toe boot 4 days a week for 10 hours. He had an offloading pad in his work boot previously but no longer has this in place. He denies claudication with walking. He has moderate to heavy drainage from the ulcer. He has not had any wound cultures taken. 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 He denies fever, chill, nausea, vomiting, redness or odor. Subjective Subjective Jose J returns today for follow up of an ulcer on the bottom of his left foot. His ulcer and drainage has improved since last visit. He continues to wear his modified work boot to alleviate pressure to the site of the ulcer of his left foot. He has been tolerating the Aquacel Extra to the ulcer. His wound culture was positive for Staph epidermidis and negative for anaerobic bacteria. He is going to complete Linezolid on Thursday. He denies fever, chills or odor. He had MRI on 10/02/23 which did not show any osteomyelitis of his foot. Arterial testing was also done and did not show any evidence of arterial insufficiency. HgbA1C was 6.5% on 10/09/23. Objective Data Objective Data Vital Signs: Vital Signs Temp Pulse Resp BP O2 Del Method 97.5 F L 78 18 130/54 H Room Air 05/13/24 09:51 05/13/24 09:51 05/13/24 09:51 05/13/24 09:51 05/13/24 09:51 Oxygen Delivery Method Room Air Lab / Micro Data Micro: Microbiology 04/29/24 10:26 Wound - Left Foot Gram Stain - Final 04/29/24 10:26 Wound - Left Foot Wound Culture - Final Staphylococcus epidermidis 04/29/24 10:26 Wound - Left Foot Anaerobic Culture - Final No growth in 5 days. Physical Exam Const alert, oriented x3 and no apparent distress General Appearance: cooperative and comfortable HEENT normocephalic and head/scalp atraumatic Resp normal respiratory effort Effort and Inspection: able to speak in complete sentences Auscultation: rales, rhonchi and diminished lung sounds Cardio regular rate and regular rhythm Skin Wounds: wounds noted Wound Narrative: as in clinical panel, callus formation surrounding ulcer with undermining at 11 o'clock, 2 o'clock and 4 o'clock that was debrided as below Psych mental status grossly normal, thought process normal, cooperative and affect normal Debridement Note Debridement Note Wound debrided: left lateral plantar Laterality: Left Type of Debridement: Excisional debridement Anesthesia Used: 5% Lidocaine Gel Depth: Down to and including healthy tissue and in the subcutaneous layer Percentage of wound debrided: 100 Instrument Used: #15 blade and Forceps Tissue Removed: Yellow slough, devitalized tissue Severity: Fat Layer Exposed Amount of bleeding with debridement: Mild Bleeding Controlled with: Compression and gauze and Silver Nitrate Patient tolerated procedure: Patient tolerated procedure well Post-Debridement Measurements and Additional Note: Post-Debridement Measurements/Treatment WC - Nurse 1 - General Ulcer Assessment Start: 04/29/24 09:55 Freq: Status: Active Protocol: KANIKA Activity Type Activity Date Activity User E-sign Co-sign Detail Recorded Client Recorded Date Recorded By Document 04/29/24 09:56 KW [id number] 04/29/24 10:00 KW Document 05/06/24 09:51 KW [id number] 05/06/24 09:59 KW Document 05/13/24 09:51 KW [id number] 05/13/24 09:55 KW 04/29/24 05/06/24 05/13/24 09:56 09:51 09:51 - Today's Visit Information Type of service Follow-up Visit Follow-up Visit Follow-up Visit (Physician/WAVE SOLDERING MACHINE 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 (Physician/WAVE SOLDERING MACHINE OPERATOR (Physician/WAVE SOLDERING MACHINE OPERATOR ) ) ) Arrival Mode Ambulatory Ambulatory Ambulatory Accompanied by Patient Identification Verified (Name & Yes Yes Yes ) Vital Signs Temperature (97.8 F-99.1 F) 97.3 F L 97.0 F L 97.5 F L Temperature Source Temporal Temporal Temporal Pulse Rate (60-100) 78 127 H 78 Pulse Location Monitor Monitor Monitor Respiratory Rate (12-18) 18 16 18 Respiratory rate source Observation Observation Observation Oxygen Delivery Method Room Air Room Air Room Air Blood Pressure (90/60-120/80) 134/73 H 115/64 130/54 H Blood Pressure Mean (mm Hg) 93 81 79 Source Monitor Monitor Monitor Position Sitting Sitting Semi-Fowlers Blood Pressure Location Left Arm Left Arm Left Arm History Since Last Visit- (Skip if this is Patient's initial visit) Have you changed medications since your No No No last visit? Any new allergies or adverse reactions No No No Had a fall/change in ADL's that may No No No increase risk of falls Signs or symptoms of abuse and/or No No No neglect since last visit Have you been in the hospital since your No No No last visit? Has dressing in place as prescribed Yes Yes Yes Has compression in place as prescribed Yes N/A Yes Has offloadiing in place as prescribed N/A N/A N/A Experienced any changes in pain level or No No No management Left Footwear Regular Shoe Regular Shoe Regular Shoe Right Footwear Regular Shoe Regular Shoe Regular Shoe Pain Scale: 0-10 Numeric Is Patient Pain Free? Yes Yes Yes - Nurse 1 - General Ulcer Measurement Start: 04/29/24 09:55 Freq: Status: Active Protocol: Activity Type Activity Date Activity User E-sign Co-sign Detail Recorded Client Recorded Date Recorded By Document 04/29/24 09:56 KW [id number] 04/29/24 10:00 KW Document 05/06/24 09:51 KW [id number] 05/06/24 09:59 Document 05/13/24 09:51 [id number] 05/13/24 09:55 04/29/24 05/06/24 05/13/24 09:56 09:51 09:51 Wound Center Nurse 1 #3 L Lateral Plantar Foot -Current Size (cm) - Length 3.5 1.5 1 -Current Size (cm) - Width 2.5 1 1 -Current Size (cm) - Depth 0.1 0.2 0.1 -Total Square Cm 8.75 1.5 1 -Date of Last Picture (Recall this 05/06/24 05/13/24 field) -Undermining/Tunneling Yes -Undermining/Tunneling Starts (O'clock 12 ) -Undermining/Tunneling Ends (O'clock) 1 -Maximum Distance (cm) 2 -Exudate Amt Small Small Small -Exudate Type Purulent Serosanguineous Serosanguineous -Wound Margin Thickened Distinct, Distinct, Outline Outline Attached Attached -Granulation Amt Large (67-100%) Large (67-100%) Large (67-100%) -Granulation Quality Red Red Red -Texture (Flory-wound Skin Appearance) Callus Callus Assessed -Moisture (Flory-wound Skin Appearance) Assessed Assessed Assessed -Color (Flory-wound Skin Appearance) Assessed, Assessed Assessed Ecchymosis -Temperature (Flory-wound Skin No Abnormality No Abnormality No Abnormality Appearance) (Pt Warm) (Pt Warm) (Pt Warm) -Tenderness on Palpation (Flory-wound No No No Skin Appearance) -Ulcer Cleansing Rinsed/ Rinsed/ Soap and Water Irrigated with Irrigated with Saline Saline -Foul Odor after Cleansing No No No -Anesthetic Used 5% Lidocaine 5% Lidocaine 5% Lidocaine Gel Gel Gel WC - Nurse 2 - General Ulcer CM Notes Start: 04/29/24 09:55 Freq: Status: Active Protocol: Activity Type Activity Date Activity User E-sign Co-sign Detail Recorded Client Recorded Date Recorded By Document 04/29/24 10:26 [id number] 04/29/24 10:33 GM Edit Result 04/29/24 10:26 GM (1) [id number] 04/29/24 10:34 GM Document 05/06/24 10:45 [id number] 05/06/24 10:54 GM Document 05/13/24 10:13 GM [id number] 05/13/24 10:37 GM (1) #3 L Lateral Plantar Foot - Bleeding Controlled with Pressure => Pressure,[id number] 04/29/24 05/06/24 05/13/24 10:26 10:45 10:13 Wound Center Nurse 2 #3 L Lateral Plantar Foot -Time 10:24 10:46 10:13 -Correct Patient Yes Yes Yes -Correct Side, Site, Position Yes Yes Yes -Correct Procedure Yes Yes Yes -Procedure Performed Yes Yes Yes -Type of Procedure Debridement Debridement Debridement -Clinical Debridement Subcutaneous Subcutaneous Subcutaneous -Tissue Removed Subcutaneous Subcutaneous Subcutaneous -Post Debridement (cm) - Length 1.8 1.3 2.0 -Post Debridement (cm) - Width 1.5 1.3 1.4 -Post Debridement (cm) - Depth 0.2 0.2 0.1 -Total Square (Post) (cm) 2.70 1.69 2.80 -Area of Debridement (cm) - Length 1.8 1.3 2.0 -Area of Debridement (cm) - Width 1.5 1.3 1.4 -Total Square (Area) (cm) 2.70 1.69 2.80 -Tunneling No No No -Undermining/Tunneling No No No -Circular Undermining No No No -Wound/Ulcer Outcome Not Healed Not Healed Not Healed -Ulcer Cleansing Rinsed/ Rinsed/ Rinsed/ Irrigated with Irrigated with Irrigated with Saline Saline Saline -Foul Odor after Cleansing No No No -Bioengineered Tissue No No No -Bleeding Controlled with Pressure, Pressure Pressure SURGIFOAM -Treatment Response Procedure Procedure Procedure Tolerated Well Tolerated Well Tolerated Well -Offloading No -Debridement - Subq, 1st 20sq cm Yes Yes Yes Pain Scale: 0-10 Numeric Is Patient Pain Free? Yes Yes Yes WC - Nurse 3 - General Ulcer D/C NN Start: 04/29/24 09:55 Freq: Status: Active Protocol: Activity Type Activity Date Activity User E-sign Co-sign Detail Recorded Client Recorded Date Recorded By Document 04/29/24 10:52 RB [id number] 04/29/24 10:53 RB Edit Result 04/29/24 10:52 RB (1) [id number] 05/06/24 09:07 Document 05/06/24 11:08 GM [id number] 05/06/24 11:09 GM Document 05/13/24 10:46 KW [id number] 05/13/24 10:46 KW (1) #3 L Lateral Plantar Foot - Primary Dressing Applied Aquacel Extra => Aquacel Extra, => Surgifoam - Surgifoam 12-7mm (3/4 x 2 3/8) => 1 04/29/24 05/06/24 05/13/24 10:52 11:08 10:46 Wound Care Center Nurse 3 #3 L Lateral Plantar Foot -Ulcer Cleansing Rinsed/ Not Cleansed Irrigated with Saline -Foul Odor after Cleansing No -Negative Pressure Wound Therapy N/A -Primary Dressing Applied Aquacel Extra, Aquacel Extra Aquacel Extra Surgifoam -Primary Dressing Covered/Secured with Dry Gauze,Dry Dry Gauze & Dry Gauze & Gauze & Roll Roll Gauze, Roll Gauze, Gauze,Secured Secured with Secured with with Tape Tape Tape -Aquacel Extra 1 1 1 -Surgifoam 12-7mm (3/4 x 2 3/8) 1 Treatment Response Procedure Tolerated Well Pain Scale: 0-10 Numeric Is Patient Pain Free? Yes Yes Yes WC - Visit Discharge Discharge Condition Stable Stable Stable Ambulatory Status Ambulatory Ambulatory Ambulatory Transportation Private Auto Private Auto Private Auto Medication Reconcilliation completed & No No provided to patient/care provider Clinical Summary of Care Provided Yes Yes Assessment/Plan Assessment/Plan (1) Abscess of left foot excluding toes: CODE(S): L02.612 - Cutaneous abscess of left foot (2) Delayed wound healing: CODE(S): T14.8XXD - Other injury of unspecified body region, subsequent encounter (3) Chronic ulcer of left foot with fat layer exposed: CODE(S): L97.522 - Non-pressure chronic ulcer of other part of left foot with fat layer exposed (4) HTN (hypertension): CODE(S): I10 - Essential (primary) hypertension QUALIFIERS: Hypertension type: primary hypertension Qualified Code(s): I10 - Essential (primary) hypertension (5) Diabetic ulcer of foot associated with diabetes mellitus due to underlying condition, with fat layer exposed: CODE(S): E08.621 - Diabetes mellitus due to underlying condition with foot ulcer; L97.502 - Non-pressure chronic ulcer of other part of unspecified foot with fat layer exposed QUALIFIERS: Diabetic foot ulcer location: midfoot Laterality: left Qualified Code(s): E08.621 - Diabetes mellitus due to underlying condition with foot ulcer; L97.422 - Non-pressure chronic ulcer of left heel and midfoot with fat layer exposed (6) Type 2 diabetes mellitus without complications: CODE(S): E11.9 - Type 2 diabetes mellitus without complications QUALIFIERS: Diabetes mellitus prison insulin use: without prison 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 There has been improvement since his last visit but callus formation is still heavy. At home wound-care instructions: Wash ulcer daily with antibacterial soap and water. Will have him continue to use Aquacel Extra to ulcer and cover with gauze and roll gauze to secure daily. Keep dressing clean and dry. His work boot was modified on 07/03/23 and again 12/25/23 to try to offload pressure. Will have him use single layer tubigrip medium compression to left LE. He reports increased swelling in his ankle and leg when wearing the tubigrip compression so has stopped wearing. Discussed possibly using TCC for offloading in near future but he is unable to do so due to work. We also discussed that there may be a single vessel narrowing that could be preventing healing and talked about possible referral to Vascular surgery to do CTA runoff. Also discussed surgical procedure proposed by podiatry to shave exostosis of bone that is likely causing ulcer and he declines at this time. Off-loading: The patient was instructed to avoid pressure and friction on the affected areas. Reposition every 2 hours at minimum. Avoid prolonged standing and/or dangling of legs. When seated, feet should be elevated at chest level. Frequent ambulation is encouraged. He will be off work until 05/13 for [employer]. Diet: Patient encouraged to increase protein intake while taking caution to avoid high carbohydrate and/or sugar intake. Labs/cultures/imaging: Wound culture positive 03/27/23 and is currently on Doxycycline. Wound culture showed Staph and Strep and he was treated with Keflex based on sensitivities and use topical Gentamicin for 3 weeks. Wound culture done 09/18/23 was positive for staph epidermidis. He has been on cephalexin and doxycycline. Wound culture was positive for Enterococcus and Linezolid completed. Wound culture was positive and he will continue Flagyl, Cipro and hold cefdinir and decrease doxycycline to once/day. His put him back on Keflex and doxycycline when his ulcer worsened over . Wound culture on 04/29/24 was positive for Staph epidermidis and he is going to complete Linezolid Thursday. XR of foot was negative. MRI negative for osteomyelitis and arterial testing negative for arterial insufficiency. Repeat XR of foot was negative. Follow-up: Return in 1 week for wound care follow up. Return sooner or report to the emergency room should symptoms worsen, or new symptoms arise. Note: [employer] speech recognition supervising librarian software was used to create portions of this document. Sound-alike and misspelled words, as well as other supervising librarian errors may be contained in the documentation.
--- NOTE | 2024-05-16 11:54 | WC ---
PHOTO 05/12/24 LEFT LATERAL PLANTAR FOOT
[2024-05-20 10:28] VITALS: BP 131/66; PULSE 81; RESP 18; TEMP 36.3
--- NOTE | 2024-05-20 14:36 | PN.PCM_ITS ---
History of Present Illness Date of Service: 05/20/24 Chief Complaint: nonhealing wound left plantar foot History of Wound: Jose J is a 68 y/o gentleman that presents to the wound healing center for evaluation and treatment of a wound to his left plantar foot. He is a patient of Dr. Giordano. He has had a wound to this same area in February 2019 and was seen at [facility] and treated there for 9 weeks with Aquacel and was placed in a wedge shoe to offload his foot. He was treated for this same wound for almost a year at this wound center and was healed in May 2020 and returned in July and was treated until September. He had undergone vascular testing at [facility] in 2018 and this has been repeated 09/2023 without significant arterial disease. 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 He and his did not want to do surgery. He has managed to do well over the last 2 years until the end of October when the area became painful again and began draining. He saw Dr. Giordano and was treated with doxycycline which helped and they had been applying Aquacel that they had from previous treatment but it has not improved. He was treated with a second course of doxycycline and then referred here for treatment. He is still working and walking on his foot in a steel toe boot 4 days a week for 10 hours. He had an offloading pad in his work boot previously but no longer has this in place. He denies claudication with walking. He has moderate to heavy drainage from the ulcer. He has not had any wound cultures taken. 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 He denies fever, chill, nausea, vomiting, redness or odor. Subjective Subjective Jose J returns today for follow up of an ulcer on the bottom of his left foot. His ulcer and drainage has improved since last visit. He continues to wear his modified work boot to alleviate pressure to the site of the ulcer of his left foot. He has been tolerating the Aquacel Extra to the ulcer. His wound culture was positive for Staph epidermidis and negative for anaerobic bacteria. He is on Bactrim DS and doxycycline. He denies fever, chills or odor. He had MRI on 10/02/23 which did not show any osteomyelitis of his foot. Arterial testing was also done and did not show any evidence of arterial insufficiency. HgbA1C was 6.5% on 10/09/23. Objective Data Objective Data Vital Signs: Vital Signs Temp Pulse Resp BP O2 Del Method 97.4 F L 81 18 131/66 H Room Air 05/20/24 10:28 05/20/24 10:28 05/20/24 10:28 05/20/24 10:28 05/20/24 10:28 Oxygen Delivery Method Room Air Lab / Micro Data Micro: Microbiology 04/29/24 10:26 Wound - Left Foot Gram Stain - Final 04/29/24 10:26 Wound - Left Foot Wound Culture - Final Staphylococcus epidermidis 04/29/24 10:26 Wound - Left Foot Anaerobic Culture - Final No growth in 5 days. Physical Exam Const alert, oriented x3 and no apparent distress General Appearance: cooperative and comfortable HEENT normocephalic and head/scalp atraumatic Resp normal respiratory effort Effort and Inspection: able to speak in complete sentences Auscultation: rales, rhonchi and diminished lung sounds Cardio regular rate and regular rhythm Skin Wounds: wounds noted Wound Narrative: as in clinical panel, minimal callus formation surrounding ulcer, no cellulitis or odor Psych mental status grossly normal, thought process normal, cooperative and affect normal Debridement Note Debridement Note Wound debrided: left lateral plantar Laterality: Left Wound Grade/Stage: Luther grade 1 Type of Debridement: Excisional debridement Anesthesia Used: 5% Lidocaine Gel Depth: Down to and including healthy tissue and in the subcutaneous layer Percentage of wound debrided: 100 Instrument Used: #15 blade and Forceps Tissue Removed: Yellow slough, devitalized tissue Severity: Fat Layer Exposed Amount of bleeding with debridement: Mild Bleeding Controlled with: Compression and gauze Patient tolerated procedure: Patient tolerated procedure well Post-Debridement Measurements and Additional Note: Post-Debridement Measurements/Treatment WC - Nurse 1 - General Ulcer Assessment Start: 04/29/24 09:55 Freq: Status: Active Protocol: KANIKA Activity Type Activity Date Activity User E-sign Co-sign Detail Recorded Client Recorded Date Recorded By Document 04/29/24 09:56 KW [id number] 04/29/24 10:00 KW Document 05/06/24 09:51 KW [id number] 05/06/24 09:59 KW Document 05/13/24 09:51 KW [id number] 05/13/24 09:55 KW Document 05/20/24 10:28 KW [id number] 05/20/24 10:31 KW 04/29/24 05/06/24 05/13/24 09:56 09:51 09:51 - Today's Visit Information Type of service Follow-up Visit Follow-up Visit Follow-up Visit (Physician/AUTOMATIC OUTSOLE CUTTER (Physician/AUTOMATIC OUTSOLE CUTTER (Physician/AUTOMATIC OUTSOLE CUTTER ) ) ) Arrival Mode Ambulatory Ambulatory Ambulatory Accompanied by Patient Identification Verified (Name & Yes Yes Yes ) Vital Signs Temperature (97.8 F-99.1 F) 97.3 F L 97.0 F L 97.5 F L Temperature Source Temporal Temporal Temporal Pulse Rate (60-100) 78 127 H 78 Pulse Location Monitor Monitor Monitor Respiratory Rate (12-18) 18 16 18 Respiratory rate source Observation Observation Observation Oxygen Delivery Method Room Air Room Air Room Air Blood Pressure (90/60-120/80) 134/73 H 115/64 130/54 H Blood Pressure Mean (mm Hg) 93 81 79 Source Monitor Monitor Monitor Position Sitting Sitting Semi-Fowlers Blood Pressure Location Left Arm Left Arm Left Arm History Since Last Visit- (Skip if this is Patient's initial visit) Have you changed medications since your No No No last visit? Any new allergies or adverse reactions No No No Had a fall/change in ADL's that may No No No increase risk of falls Signs or symptoms of abuse and/or No No No neglect since last visit Have you been in the hospital since your No No No last visit? Has dressing in place as prescribed Yes Yes Yes Has compression in place as prescribed Yes N/A Yes Has offloadiing in place as prescribed N/A N/A N/A Experienced any changes in pain level or No No No management Left Footwear Regular Shoe Regular Shoe Regular Shoe Right Footwear Regular Shoe Regular Shoe Regular Shoe Pain Scale: 0-10 Numeric Is Patient Pain Free? Yes Yes Yes 05/20/24 10:28 - Today's Visit Information Type of service Follow-up Visit (Physician/AUTOMATIC OUTSOLE CUTTER ) Arrival Mode Ambulatory Accompanied by Patient Identification Verified (Name & Yes ) Vital Signs Temperature (97.8 F-99.1 F) 97.4 F L Temperature Source Temporal Pulse Rate (60-100) 81 Pulse Location Monitor Respiratory Rate (12-18) 18 Respiratory rate source Observation Oxygen Delivery Method Room Air Blood Pressure (90/60-120/80) 131/66 H Blood Pressure Mean (mm Hg) 87 Source Monitor Position Sitting Blood Pressure Location Left Arm History Since Last Visit- (Skip if this is Patient's initial visit) Have you changed medications since your No last visit? Any new allergies or adverse reactions No Had a fall/change in ADL's that may No increase risk of falls Signs or symptoms of abuse and/or No neglect since last visit Have you been in the hospital since your No last visit? Has dressing in place as prescribed Yes Has compression in place as prescribed N/A Has offloadiing in place as prescribed N/A Experienced any changes in pain level or No management Left Footwear Regular Shoe Right Footwear Regular Shoe Pain Scale: 0-10 Numeric Is Patient Pain Free? Yes WC - Nurse 1 - General Ulcer Measurement Start: 04/29/24 09:55 Freq: Status: Active Protocol: Activity Type Activity Date Activity User E-sign Co-sign Detail Recorded Client Recorded Date Recorded By Document 04/29/24 09:56 KW [id number] 04/29/24 10:00 KW Document 05/06/24 09:51 KW [id number] 05/06/24 09:59 KW Document 05/13/24 09:51 KW [id number] 05/13/24 09:55 KW Document 05/20/24 10:28 KW [id number] 05/20/24 10:31 KW 04/29/24 05/06/24 05/13/24 09:56 09:51 09:51 Wound Center Nurse 1 #3 L Lateral Plantar Foot -Current Size (cm) - Length 3.5 1.5 1 -Current Size (cm) - Width 2.5 1 1 -Current Size (cm) - Depth 0.1 0.2 0.1 -Total Square Cm 8.75 1.5 1 -Date of Last Picture (Recall this 05/06/24 05/13/24 field) -Undermining/Tunneling Yes -Undermining/Tunneling Starts (O'clock 12 ) -Undermining/Tunneling Ends (O'clock) 1 -Maximum Distance (cm) 2 -Exudate Amt Small Small Small -Exudate Type Purulent Serosanguineous Serosanguineous -Wound Margin Thickened Distinct, Distinct, Outline Outline Attached Attached -Granulation Amt Large (67-100%) Large (67-100%) Large (67-100%) -Granulation Quality Red Red Red -Necrosis Amt -Texture (Flory-wound Skin Appearance) Callus Callus Assessed -Moisture (Flory-wound Skin Appearance) Assessed Assessed Assessed -Color (Flory-wound Skin Appearance) Assessed, Assessed Assessed Ecchymosis -Temperature (Flory-wound Skin No Abnormality No Abnormality No Abnormality Appearance) (Pt Warm) (Pt Warm) (Pt Warm) -Tenderness on Palpation (Flory-wound No No No Skin Appearance) -Ulcer Cleansing Rinsed/ Rinsed/ Soap and Water Irrigated with Irrigated with Saline Saline -Foul Odor after Cleansing No No No -Anesthetic Used 5% Lidocaine 5% Lidocaine 5% Lidocaine Gel Gel Gel 05/20/24 10:28 Wound Center Nurse 1 #3 L Lateral Plantar Foot -Current Size (cm) - Length 1.8 -Current Size (cm) - Width 1 -Current Size (cm) - Depth 0.1 -Total Square Cm 1.8 -Date of Last Picture (Recall this field) -Undermining/Tunneling -Undermining/Tunneling Starts (O'clock ) -Undermining/Tunneling Ends (O'clock) -Maximum Distance (cm) -Exudate Amt Small -Exudate Type Serosanguineous -Wound Margin Distinct, Outline Attached -Granulation Amt Large (67-100%) -Granulation Quality Red -Necrosis Amt None Present (0 %) -Texture (Flory-wound Skin Appearance) Assessed,Callus -Moisture (Flory-wound Skin Appearance) Assessed -Color (Flory-wound Skin Appearance) Assessed -Temperature (Flory-wound Skin No Abnormality Appearance) (Pt Warm) -Tenderness on Palpation (Flory-wound No Skin Appearance) -Ulcer Cleansing Rinsed/ Irrigated with Saline -Foul Odor after Cleansing No -Anesthetic Used 5% Lidocaine Gel WC - Nurse 2 - General Ulcer CM Notes Start: 04/29/24 09:55 Freq: Status: Active Protocol: Activity Type Activity Date Activity User E-sign Co-sign Detail Recorded Client Recorded Date Recorded By Document 04/29/24 10:26 GM [id number] 04/29/24 10:33 GM Edit Result 04/29/24 10:26 GM (1) [id number] 04/29/24 10:34 GM Document 05/06/24 10:45 GM [id number] 05/06/24 10:54 GM Document 05/13/24 10:13 GM [id number] 05/13/24 10:37 GM Document 05/20/24 11:21 GM [id number] 05/20/24 11:38 GM (1) #3 L Lateral Plantar Foot - Bleeding Controlled with Pressure => Pressure,[email or web address] 04/29/24 05/06/24 05/13/24 10:26 10:45 10:13 Wound Center Nurse 2 #3 L Lateral Plantar Foot -Time 10:24 10:46 10:13 -Correct Patient Yes Yes Yes -Correct Side, Site, Position Yes Yes Yes -Correct Procedure Yes Yes Yes -Procedure Performed Yes Yes Yes -Type of Procedure Debridement Debridement Debridement -Clinical Debridement Subcutaneous Subcutaneous Subcutaneous -Tissue Removed Subcutaneous Subcutaneous Subcutaneous -Post Debridement (cm) - Length 1.8 1.3 2.0 -Post Debridement (cm) - Width 1.5 1.3 1.4 -Post Debridement (cm) - Depth 0.2 0.2 0.1 -Total Square (Post) (cm) 2.70 1.69 2.80 -Area of Debridement (cm) - Length 1.8 1.3 2.0 -Area of Debridement (cm) - Width 1.5 1.3 1.4 -Total Square (Area) (cm) 2.70 1.69 2.80 -Tunneling No No No -Undermining/Tunneling No No No -Circular Undermining No No No -Wound/Ulcer Outcome Not Healed Not Healed Not Healed -Ulcer Cleansing Rinsed/ Rinsed/ Rinsed/ Irrigated with Irrigated with Irrigated with Saline Saline Saline -Foul Odor after Cleansing No No No -Bioengineered Tissue No No No -Bleeding Controlled with Pressure, Pressure Pressure SURGIFOAM -Treatment Response Procedure Procedure Procedure Tolerated Well Tolerated Well Tolerated Well -Offloading No -Debridement - Subq, 1st 20sq cm Yes Yes Yes Pain Scale: 0-10 Numeric Is Patient Pain Free? Yes Yes Yes 05/20/24 11:21 Wound Center Nurse 2 #3 L Lateral Plantar Foot -Time 11:26 -Correct Patient Yes -Correct Side, Site, Position Yes -Correct Procedure Yes -Procedure Performed Yes -Type of Procedure Debridement -Clinical Debridement Subcutaneous -Tissue Removed Subcutaneous -Post Debridement (cm) - Length 1.5 -Post Debridement (cm) - Width 1.3 -Post Debridement (cm) - Depth 0.1 -Total Square (Post) (cm) 1.95 -Area of Debridement (cm) - Length 1.5 -Area of Debridement (cm) - Width 1.3 -Total Square (Area) (cm) 1.95 -Tunneling No -Undermining/Tunneling No -Circular Undermining No -Wound/Ulcer Outcome Not Healed -Ulcer Cleansing Rinsed/ Irrigated with Saline -Foul Odor after Cleansing No -Bioengineered Tissue No -Bleeding Controlled with Pressure -Treatment Response Procedure Tolerated Well -Offloading -Debridement - Subq, 1st 20sq cm Yes Pain Scale: 0-10 Numeric Is Patient Pain Free? Yes WC - Nurse 3 - General Ulcer D/C NN Start: 04/29/24 09:55 Freq: Status: Active Protocol: Activity Type Activity Date Activity User E-sign Co-sign Detail Recorded Client Recorded Date Recorded By Document 04/29/24 10:52 RB [id number] 04/29/24 10:53 RB Edit Result 04/29/24 10:52 RB (1) [id number] 05/06/24 09:07 GM Document 05/06/24 11:08 GM [id number] 05/06/24 11:09 GM Document 05/13/24 10:46 KW [id number] 05/13/24 10:46 KW Document 05/20/24 11:54 KW [id number] 05/20/24 11:54 KW (1) #3 L Lateral Plantar Foot - Primary Dressing Applied Aquacel Extra => Aquacel Extra, => Surgifoam - Surgifoam 12-7mm (3/4 x 2 3/8) => 1 04/29/24 05/06/24 05/13/24 10:52 11:08 10:46 Wound Care Center Nurse 3 #3 L Lateral Plantar Foot -Ulcer Cleansing Rinsed/ Not Cleansed Irrigated with Saline -Foul Odor after Cleansing No -Negative Pressure Wound Therapy N/A -Primary Dressing Applied Aquacel Extra, Aquacel Extra Aquacel Extra Surgifoam -Primary Dressing Covered/Secured with Dry Gauze,Dry Dry Gauze & Dry Gauze & Gauze & Roll Roll Gauze, Roll Gauze, Gauze,Secured Secured with Secured with with Tape Tape Tape -Aquacel Extra 1 1 1 -Surgifoam 12-7mm (3/4 x 2 3/8) 1 Treatment Response Procedure Tolerated Well Pain Scale: 0-10 Numeric Is Patient Pain Free? Yes Yes Yes WC - Visit Discharge Discharge Condition Stable Stable Stable Ambulatory Status Ambulatory Ambulatory Ambulatory Transportation Private Auto Private Auto Private Auto Medication Reconcilliation completed & No No provided to patient/care provider Clinical Summary of Care Provided Yes Yes 05/20/24 11:54 Wound Care Center Nurse 3 #3 L Lateral Plantar Foot -Ulcer Cleansing -Foul Odor after Cleansing -Negative Pressure Wound Therapy -Primary Dressing Applied Aquacel Extra -Primary Dressing Covered/Secured with Dry Gauze & Roll Gauze, Secured with Tape -Aquacel Extra 1 -Surgifoam 12-7mm (3/4 x 2 3/8) Treatment Response Pain Scale: 0-10 Numeric Is Patient Pain Free? Yes WC - Visit Discharge Discharge Condition Stable Ambulatory Status Ambulatory Transportation Private Auto Medication Reconcilliation completed & No provided to patient/care provider Clinical Summary of Care Provided Yes Assessment/Plan Assessment/Plan (1) Abscess of left foot excluding toes: CODE(S): L02.612 - Cutaneous abscess of left foot (2) Delayed wound healing: CODE(S): T14.8XXD - Other injury of unspecified body region, subsequent encounter (3) Chronic ulcer of left foot with fat layer exposed: CODE(S): L97.522 - Non-pressure chronic ulcer of other part of left foot with fat layer exposed (4) HTN (hypertension): CODE(S): I10 - Essential (primary) hypertension QUALIFIERS: Hypertension type: primary hypertension Qualified Code(s): I10 - Essential (primary) hypertension (5) Diabetic ulcer of foot associated with diabetes mellitus due to underlying condition, with fat layer exposed: CODE(S): E08.621 - Diabetes mellitus due to underlying condition with foot ulcer; L97.502 - Non-pressure chronic ulcer of other part of unspecified foot with fat layer exposed QUALIFIERS: Diabetic foot ulcer location: midfoot Laterality: left Qualified Code(s): E08.621 - Diabetes mellitus due to underlying condition with foot ulcer; L97.422 - Non-pressure chronic ulcer of left heel and midfoot with fat layer exposed (6) Type 2 diabetes mellitus without complications: CODE(S): E11.9 - Type 2 diabetes mellitus without complications QUALIFIERS: Diabetes mellitus halfway insulin use: without rodent exterminator 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 There has been improvement since his last visit but callus formation is still heavy. At home wound-care instructions: Wash ulcer daily with antibacterial soap and water. Will have him continue to use Aquacel Extra to ulcer and cover with gauze and roll gauze to secure daily. Keep dressing clean and dry. His work boot was modified on 07/03/23 and again 12/25/23 to try to offload pressure. Will have him use single layer tubigrip medium compression to left LE. He reports increased swelling in his ankle and leg when wearing the tubigrip compression so has stopped wearing. Discussed possibly using TCC for offloading in near future but he is unable to do so due to work. We also discussed that there may be a single vessel narrowing that could be preventing healing and talked about possible referral to Vascular surgery to do CTA runoff. Also discussed surgical procedure proposed by podiatry to shave exostosis of bone that is likely causing ulcer and he declines at this time. Off-loading: The patient was instructed to avoid pressure and friction on the affected areas. Reposition every 2 hours at minimum. Avoid prolonged standing and/or dangling of legs. When seated, feet should be elevated at chest level. Frequent ambulation is encouraged. He will be off work until 05/13 for [employer]. Diet: Patient encouraged to increase protein intake while taking caution to avoid high carbohydrate and/or sugar intake. Labs/cultures/imaging: Wound culture positive 03/27/23 and is currently on Doxycycline. Wound culture showed Staph and Strep and he was treated with Keflex based on sensitivities and use topical Gentamicin for 3 weeks. Wound culture done 09/18/23 was positive for staph epidermidis. He has been on cephalexin and doxycycline. Wound culture was positive for Enterococcus and Linezolid completed. Wound culture was positive and he will continue Flagyl, Cipro and hold cefdinir and decrease doxycycline to once/day. His put him back on Keflex and doxycycline when his ulcer worsened over . Wound culture on 04/29/24 was positive for Staph epidermidis and he completed Linezolid and is back to taking chronic doxycyline and on Bactrim. XR of foot was negative. MRI negative for osteomyelitis and arterial testing negative for arterial insufficiency. Repeat XR of foot was negative. Follow-up: Return in 1 week for wound care follow up. Return sooner or report to the emergency room should symptoms worsen, or new symptoms arise. Note: [employer] speech recognition verse writer software was used to create portions of this document. Sound-alike and misspelled words, as well as other verse writer errors may be contained in the documentation.
== END 2024-05-24 23:59 | disposition home or self-care (01) ==
LOC: WC 10:15
PROVIDERS: PCP Family Medicine; Referring Provider Family Medicine; Visit Provider Family Medicine
DX: E11.621 Type 2 diabetes mellitus with foot ulcer (principal); L97.422 Non-pressure chronic ulcer of left heel and midfoot with fat layer exposed; I10 Essential (primary) hypertension; Z79.899 Other long term (current) drug therapy
CPT/HCPCS: 11042; 87070; 87075; 87077; 87186; 87205

== ENCOUNTER 2024-06-17 10:00 | Outpatient (RCR) | payer BC, SELFPAY ==
[2024-05-25 00:43] VITALS: BP 127/57; PULSE 76; RESP 18; TEMP 36.3
[2024-05-27 09:45] VITALS: BP 142/68; PULSE 84; RESP 18; TEMP 36.4
--- NOTE | 2024-05-27 14:27 | PCM.WC.PN ---
History of Present Illness Date of Service: 05/27/24 Chief Complaint: nonhealing wound left plantar foot History of Wound: Jose J is a 68 y/o gentleman that presents to the wound healing center for evaluation and treatment of a wound to his left plantar foot. He is a patient of Dr. Giordano. He has had a wound to this same area in February 2019 and was seen at [facility] [place] and treated there for 9 weeks with Aquacel and was placed in a wedge shoe to offload his foot. He was treated for this same wound for almost a year at this wound center and was healed in May 2020 and returned in July and was treated until September. He had undergone vascular testing at [facility] in 2018 and this has been repeated 09/2023 without significant arterial disease. 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 He and his did not want to do surgery. He has managed to do well over the last 2 years until the end of October when the area became painful again and began draining. He saw Dr. Giordano and was treated with doxycycline which helped and they had been applying Aquacel that they had from previous treatment but it has not improved. He was treated with a second course of doxycycline and then referred here for treatment. He is still working and walking on his foot in a steel toe boot 4 days a week for 10 hours. He had an offloading pad in his work boot previously but no longer has this in place. He denies claudication with walking. He has moderate to heavy drainage from the ulcer. He has not had any wound cultures taken. 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 He denies fever, chill, nausea, vomiting, redness or odor. Subjective Subjective Jose J returns today for follow up of an ulcer on the bottom of his left foot. His ulcer and drainage have improved a little since last visit. He continues to wear his modified work boot to alleviate pressure to the site of the ulcer of his left foot. He has been tolerating the Aquacel Extra to the ulcer. His wound culture was positive for Staph epidermidis and negative for anaerobic bacteria. He is on Bactrim DS and doxycycline. He denies fever, chills or odor. He had MRI on 10/02/23 which did not show any osteomyelitis of his foot. Arterial testing was also done and did not show any evidence of arterial insufficiency. HgbA1C was 6.5% on 10/09/23. Objective Data Objective Data Vital Signs: Vital Signs Temp Pulse Resp BP 97.6 F L 84 18 142/68 H 05/27/24 09:45 05/27/24 09:45 05/27/24 09:45 05/27/24 09:45 Physical Exam Const alert, oriented x3 and no apparent distress General Appearance: cooperative and comfortable HEENT normocephalic and head/scalp atraumatic Resp normal respiratory effort Effort and Inspection: able to speak in complete sentences Auscultation: rales, rhonchi and diminished lung sounds Cardio regular rate and regular rhythm Skin Wounds: wounds noted Wound Narrative: as in clinical panel, mild callus formation surrounding ulcer, no cellulitis or odor Psych mental status grossly normal, thought process normal, cooperative and affect normal Debridement Note Debridement Note Wound debrided: left lateral plantar ulcer Laterality: Left Wound Grade/Stage: Luther grade 1 Type of Debridement: Excisional debridement Anesthesia Used: 5% Lidocaine Gel Depth: Down to and including healthy tissue and in the subcutaneous layer Percentage of wound debrided: 100 Instrument Used: #15 blade and Forceps Tissue Removed: Yellow slough, devitalized tissue Severity: Fat Layer Exposed Amount of bleeding with debridement: Mild Bleeding Controlled with: Pressure Patient tolerated procedure: Patient tolerated procedure well Post-Debridement Measurements and Additional Note: Post-Debridement Measurements/Treatment - Nurse 1 - General Ulcer Assessment Start: 05/27/24 09:43 Freq: Status: Active Protocol: KANIKA Activity Type Activity Date Activity User E-sign Co-sign Detail Recorded Client Recorded Date Recorded By Document 05/27/24 09:45 RB [id number] 05/27/24 09:48 RB 05/27/24 09:45 - Today's Visit Information Type of service Follow-up Visit (Physician/PROFESSOR OF GEOLOGY ) Arrival Mode Ambulatory Transfer Assistance None Patient Identification Verified (Name & Yes ) Patient Requires Transmission-Based No Precautions Vital Signs Temperature (97.8 F-99.1 F) 97.6 F L Temperature Source Temporal Pulse Rate (60-100) 84 Pulse Location Monitor Respiratory Rate (12-18) 18 Respiratory rate source Observation Blood Pressure (90/60-120/80) 142/68 H Blood Pressure Mean (mm Hg) 92 Source Monitor Position Semi-Fowlers Blood Pressure Location Left Arm History Since Last Visit- (Skip if this is Patient's initial visit) Have you changed medications since your No last visit? Any new allergies or adverse reactions No Had a fall/change in ADL's that may No increase risk of falls Signs or symptoms of abuse and/or No neglect since last visit Have you been in the hospital since your No last visit? Has dressing in place as prescribed Yes Has compression in place as prescribed No Has offloadiing in place as prescribed No Experienced any changes in pain level or No management Pain Scale: 0-10 Numeric Is Patient Pain Free? Yes WC - Nurse 1 - General Ulcer Measurement Start: 05/27/24 09:43 Freq: Status: Active Protocol: Activity Type Activity Date Activity User E-sign Co-sign Detail Recorded Client Recorded Date Recorded By Document 05/27/24 09:45 RB [id number] 05/27/24 09:48 RB 05/27/24 09:45 Wound Center Nurse 1 #3 L Lateral Plantar Foot -Combined with other wound No -Current Size (cm) - Length 1.2 -Current Size (cm) - Width 1 -Current Size (cm) - Depth 0.1 -Total Square Cm 1.2 -Tunneling No -Undermining/Tunneling No -Circular Undermining No -Exudate Amt Medium -Exudate Type Serosanguineous -Wound Margin Distinct, Outline Attached -Granulation Amt Medium (34-66%) -Granulation Quality Alpha -Slough/Fibrin Yes -Necrosis Amt Medium (34-66%) -Necrotic Tissue Type Adherent Slough -Structure Exposed N/A -Texture (Flory-wound Skin Appearance) Assessed,Callus -Moisture (Flory-wound Skin Appearance) Assessed -Color (Flory-wound Skin Appearance) Assessed -Temperature (Flory-wound Skin No Abnormality Appearance) (Pt Warm) -Tenderness on Palpation (Flory-wound No Skin Appearance) -Ulcer Cleansing Wound Cleanser -Foul Odor after Cleansing No -Anesthetic Used 5% Lidocaine Gel WC - Nurse 2 - General Ulcer CM Notes Start: 05/27/24 09:43 Freq: Status: Active Protocol: Activity Type Activity Date Activity User E-sign Co-sign Detail Recorded Client Recorded Date Recorded By Document 05/27/24 10:33 GM [id number] 05/27/24 10:47 05/27/24 10:33 Wound Center Nurse 2 -Time 10:33 -Correct Patient Yes -Correct Side, Site, Position Yes -Correct Procedure Yes -Procedure Performed Yes -Type of Procedure Debridement -Clinical Debridement Subcutaneous -Tissue Removed Subcutaneous -Post Debridement (cm) - Length 1.3 -Post Debridement (cm) - Width 1.0 -Post Debridement (cm) - Depth 0.1 -Total Square (Post) (cm) 1.30 -Area of Debridement (cm) - Length 1.3 -Area of Debridement (cm) - Width 1.0 -Total Square (Area) (cm) 1.30 -Tunneling No -Undermining/Tunneling No -Circular Undermining No -Wound/Ulcer Outcome Not Healed -Ulcer Cleansing Rinsed/ Irrigated with Saline -Foul Odor after Cleansing No -Bleeding Controlled with Pressure -Treatment Response Procedure Tolerated Well -Debridement - Subq, 1st 20sq cm Yes Pain Scale: 0-10 Numeric Is Patient Pain Free? Yes - Nurse 3 - General Ulcer D/C NN Start: 05/27/24 09:43 Freq: Status: Active Protocol: Activity Type Activity Date Activity User E-sign Co-sign Detail Recorded Client Recorded Date Recorded By Document 05/27/24 11:02 [id number] 05/27/24 11:02 05/27/24 11:02 Wound Care Center Nurse 3 #3 L Lateral Plantar Foot -Ulcer Cleansing Rinsed/ Irrigated with Saline -Primary Dressing Applied Aquacel Extra -Primary Dressing Covered/Secured with Dry Gauze,Dry Gauze & Roll Gauze,Secured with Tape -Aquacel Extra 1 Treatment Response Procedure Tolerated Well Pain Scale: 0-10 Numeric Is Patient Pain Free? Yes - Visit Discharge Discharge Condition Stable Ambulatory Status Ambulatory Transportation Private Auto Medication Reconcilliation completed & No provided to patient/care provider Clinical Summary of Care Provided Yes Assessment/Plan Assessment/Plan (1) Abscess of left foot excluding toes: CODE(S): L02.612 - Cutaneous abscess of left foot (2) Delayed wound healing: CODE(S): T14.8XXD - Other injury of unspecified body region, subsequent encounter (3) Chronic ulcer of left foot with fat layer exposed: CODE(S): L97.522 - Non-pressure chronic ulcer of other part of left foot with fat layer exposed (4) HTN (hypertension): CODE(S): I10 - Essential (primary) hypertension QUALIFIERS: Hypertension type: primary hypertension Qualified Code(s): I10 - Essential (primary) hypertension (5) Diabetic ulcer of foot associated with diabetes mellitus due to underlying condition, with fat layer exposed: CODE(S): E08.621 - Diabetes mellitus due to underlying condition with foot ulcer; L97.502 - Non-pressure chronic ulcer of other part of unspecified foot with fat layer exposed QUALIFIERS: Diabetic foot ulcer location: midfoot Laterality: left Qualified Code(s): E08.621 - Diabetes mellitus due to underlying condition with foot ulcer; L97.422 - Non-pressure chronic ulcer of left heel and midfoot with fat layer exposed (6) Type 2 diabetes mellitus without complications: CODE(S): E11.9 - Type 2 diabetes mellitus without complications QUALIFIERS: Diabetes mellitus usp insulin use: without termite control service representative 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 There has been improvement since his last visit but callus formation is still moderate. At home wound-care instructions: Wash ulcer daily with antibacterial soap and water. Will have him continue to use Aquacel Extra to ulcer and cover with gauze and roll gauze to secure daily. Keep dressing clean and dry. His work boot was modified on 07/03/23 and again 12/25/23 to try to offload pressure. He forgot to bring insole of his work boot to be modified again. Will have him use single layer tubigrip medium compression to left LE. He reports increased swelling in his ankle and leg when wearing the tubigrip compression so has stopped wearing. Discussed possibly using TCC for offloading in near future but he is unable to do so due to work. We also discussed that there may be a single vessel narrowing that could be preventing healing and talked about possible referral to Vascular surgery to do CTA runoff. Also discussed surgical procedure proposed by podiatry to shave exostosis of bone that is likely causing ulcer and he declines at this time. Off-loading: The patient was instructed to avoid pressure and friction on the affected areas. Reposition every 2 hours at minimum. Avoid prolonged standing and/or dangling of legs. When seated, feet should be elevated at chest level. Frequent ambulation is encouraged. He will be off work until 05/13 for [place]. Diet: Patient encouraged to increase protein intake while taking caution to avoid high carbohydrate and/or sugar intake. Labs/cultures/imaging: Wound culture positive 03/27/23 and is currently on Doxycycline. Wound culture showed Staph and Strep and he was treated with Keflex based on sensitivities and use topical Gentamicin for 3 weeks. Wound culture done 09/18/23 was positive for staph epidermidis. He has been on cephalexin and doxycycline. Wound culture was positive for Enterococcus and Linezolid completed. Wound culture was positive and he will continue Flagyl, Cipro and hold cefdinir and decrease doxycycline to once/day. His put him back on Keflex and doxycycline when his ulcer worsened over . Wound culture on 04/29/24 was positive for Staph epidermidis and he completed Linezolid and is back to taking chronic doxycyline and on Bactrim. XR of foot was negative. MRI negative for osteomyelitis and arterial testing negative for arterial insufficiency. Repeat XR of foot was negative. Follow-up: Return in 1 week for wound care follow up. Return sooner or report to the emergency room should symptoms worsen, or new symptoms arise. Note: [employer] speech recognition electrician crane maintenance software was used to create portions of this document. Sound-alike and misspelled words, as well as other electrician crane maintenance errors may be contained in the documentation.
[2024-06-03 09:57] VITALS: BP 114/55; PULSE 77; RESP 18; TEMP 36.5
--- NOTE | 2024-06-03 13:02 | PCM.WC.PN ---
History of Present Illness Date of Service: 06/03/24 Chief Complaint: nonhealing wound left plantar foot History of Wound: Jose J is a 68 y/o gentleman that presents to the wound healing center for evaluation and treatment of a wound to his left plantar foot. He is a patient of Dr. Giordano. He has had a wound to this same area in February 2019 and was seen at [facility] [place] and treated there for 9 weeks with Aquacel and was placed in a wedge shoe to offload his foot. He was treated for this same wound for almost a year at this wound center and was healed in May 2020 and returned in July and was treated until September. He had undergone vascular testing at [facility] in 2018 and this has been repeated 09/2023 without significant arterial disease. 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 He and his did not want to do surgery. He has managed to do well over the last 2 years until the end of October when the area became painful again and began draining. He saw Dr. Giordano and was treated with doxycycline which helped and they had been applying Aquacel that they had from previous treatment but it has not improved. He was treated with a second course of doxycycline and then referred here for treatment. He is still working and walking on his foot in a steel toe boot 4 days a week for 10 hours. He had an offloading pad in his work boot previously but no longer has this in place. He denies claudication with walking. He has moderate to heavy drainage from the ulcer. He has not had any wound cultures taken. 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 He denies fever, chill, nausea, vomiting, redness or odor. Subjective Subjective Jose J returns today for follow up of an ulcer on the bottom of his left foot. His ulcer and drainage have improved a little since last visit. He continues to wear his modified work boot to alleviate pressure to the site of the ulcer of his left foot. He has been tolerating the Aquacel Extra to the ulcer. His wound culture was positive for Staph epidermidis and negative for anaerobic bacteria. He is on Bactrim DS and doxycycline. He denies fever, chills or odor. He had MRI on 10/02/23 which did not show any osteomyelitis of his foot. Arterial testing was also done and did not show any evidence of arterial insufficiency. HgbA1C was 6.5% on 10/09/23. Objective Data Objective Data Vital Signs: Vital Signs Temp Pulse Resp BP O2 Del Method 97.7 F L 77 18 114/55 L Room Air 06/03/24 09:57 06/03/24 09:57 06/03/24 09:57 06/03/24 09:57 06/03/24 09:57 Oxygen Delivery Method Room Air Physical Exam Const alert, oriented x3 and no apparent distress General Appearance: cooperative and comfortable HEENT normocephalic and head/scalp atraumatic Resp normal respiratory effort Effort and Inspection: able to speak in complete sentences Auscultation: rales, rhonchi and diminished lung sounds Cardio regular rate and regular rhythm Skin Wounds: wounds noted Wound Narrative: as in clinical panel, mild callus formation surrounding ulcer, no cellulitis or odor Psych mental status grossly normal, thought process normal, cooperative and affect normal Debridement Note Debridement Note Wound debrided: left lateral plantar ulcer Laterality: Left Wound Grade/Stage: Luther grade 1 Type of Debridement: Excisional debridement Anesthesia Used: 5% Lidocaine Gel Depth: Down to and including healthy tissue and in the subcutaneous layer Percentage of wound debrided: 100 Instrument Used: #15 blade and Forceps Tissue Removed: Yellow slough, devitalized tissue Severity: Fat Layer Exposed Amount of bleeding with debridement: Mild Bleeding Controlled with: Pressure Patient tolerated procedure: Patient tolerated procedure well Post-Debridement Measurements and Additional Note: Post-Debridement Measurements/Treatment - Nurse 1 - General Ulcer Assessment Start: 05/27/24 09:43 Freq: Status: Active Protocol: QUOC.AMADA Activity Type Activity Date Activity User E-sign Co-sign Detail Recorded Client Recorded Date Recorded By Document 05/27/24 09:45 RB [id number] 05/27/24 09:48 RB Document 06/03/24 09:57 DS [id number] 06/03/24 09:58 DS 05/27/24 06/03/24 09:45 09:57 - Today's Visit Information Type of service Follow-up Visit Follow-up Visit (Physician/INSIDE BARREL LATHE OPERATOR (Physician/INSIDE BARREL LATHE OPERATOR ) ) Arrival Mode Ambulatory Ambulatory Transfer Assistance None Patient Identification Verified (Name & Yes Yes ) Patient Requires Transmission-Based No No Precautions Vital Signs Temperature (97.8 F-99.1 F) 97.6 F L 97.7 F L Temperature Source Temporal Temporal Pulse Rate (60-100) 84 77 Pulse Location Monitor Monitor Respiratory Rate (12-18) 18 18 Respiratory rate source Observation Observation Oxygen Delivery Method Room Air Blood Pressure (90/60-120/80) 142/68 H 114/55 L Blood Pressure Mean (mm Hg) 92 74 Source Monitor Monitor Position Semi-Fowlers Sitting Blood Pressure Location Left Arm Left Arm History Since Last Visit- (Skip if this is Patient's initial visit) Have you changed medications since your No No last visit? Any new allergies or adverse reactions No No Had a fall/change in ADL's that may No No increase risk of falls Signs or symptoms of abuse and/or No No neglect since last visit Have you been in the hospital since your No No last visit? Has dressing in place as prescribed Yes Yes Has compression in place as prescribed No N/A Has offloadiing in place as prescribed No N/A Experienced any changes in pain level or No No management Left Footwear Regular Shoe Right Footwear Regular Shoe Pain Scale: 0-10 Numeric Is Patient Pain Free? Yes Yes WC - Nurse 1 - General Ulcer Measurement Start: 05/27/24 09:43 Freq: Status: Active Protocol: Activity Type Activity Date Activity User E-sign Co-sign Detail Recorded Client Recorded Date Recorded By Document 05/27/24 09:45 RB [id number] 05/27/24 09:48 RB Document 06/03/24 09:58 DS [id number] 06/03/24 10:04 DS 05/27/24 06/03/24 09:45 09:58 Wound Center Nurse 1 #3 L Lateral Plantar Foot -Combined with other wound No -Current Size (cm) - Length 1.2 1.1 -Current Size (cm) - Width 1 1.1 -Current Size (cm) - Depth 0.1 0.1 -Total Square Cm 1.2 1.21 -Photo Taken No -Tunneling No No -Undermining/Tunneling No No -Circular Undermining No No -Exudate Amt Medium Small -Exudate Type Serosanguineous Serosanguineous -Wound Margin Distinct, Distinct, Outline Outline Attached Attached -Granulation Amt Medium (34-66%) Medium (34-66%) -Granulation Quality [place] -Slough/Fibrin Yes -Necrosis Amt Medium (34-66%) Small (1-33%) -Necrotic Tissue Type Adherent Slough Adherent Slough -Structure Exposed N/A -Texture (Flory-wound Skin Appearance) Assessed,Callus Assessed -Moisture (Flory-wound Skin Appearance) Assessed Assessed -Color (Flory-wound Skin Appearance) Assessed Assessed -Temperature (Flory-wound Skin No Abnormality No Abnormality Appearance) (Pt Warm) (Pt Warm) -Tenderness on Palpation (Flory-wound No Skin Appearance) -Ulcer Cleansing Wound Cleanser Soap and Water -Foul Odor after Cleansing No No -Anesthetic Used 5% Lidocaine 5% Lidocaine Gel Gel WC - Nurse 2 - General Ulcer CM Notes Start: 05/27/24 09:43 Freq: Status: Active Protocol: Activity Type Activity Date Activity User E-sign Co-sign Detail Recorded Client Recorded Date Recorded By Document 05/27/24 10:33 [id number] 05/27/24 10:47 Document 06/03/24 11:06 [id number] 06/03/24 11:16 05/27/24 06/03/24 10:33 11:06 Wound Center Nurse 2 #3 L Lateral Plantar Foot -Time 10:33 11:06 -Correct Patient Yes Yes -Correct Side, Site, Position Yes Yes -Correct Procedure Yes Yes -Procedure Performed Yes Yes -Type of Procedure Debridement Debridement -Clinical Debridement Subcutaneous Subcutaneous -Tissue Removed Subcutaneous Subcutaneous -Post Debridement (cm) - Length 1.3 1.0 -Post Debridement (cm) - Width 1.0 1.0 -Post Debridement (cm) - Depth 0.1 0.1 -Total Square (Post) (cm) 1.30 1.00 -Area of Debridement (cm) - Length 1.3 1.0 -Area of Debridement (cm) - Width 1.0 1.0 -Total Square (Area) (cm) 1.30 1.00 -Tunneling No No -Undermining/Tunneling No No -Circular Undermining No No -Wound/Ulcer Outcome Not Healed Not Healed -Ulcer Cleansing Rinsed/ Rinsed/ Irrigated with Irrigated with Saline Saline -Foul Odor after Cleansing No No -Bioengineered Tissue No -Bleeding Controlled with Pressure Pressure -Treatment Response Procedure Procedure Tolerated Well Tolerated Well -Debridement - Subq, 1st 20sq cm Yes Yes Pain Scale: 0-10 Numeric Is Patient Pain Free? Yes Yes - Nurse 3 - General Ulcer D/C NN Start: 05/27/24 09:43 Freq: Status: Active Protocol: Activity Type Activity Date Activity User E-sign Co-sign Detail Recorded Client Recorded Date Recorded By Document 05/27/24 11:02 RB [id number] 05/27/24 11:02 RB Document 06/03/24 11:24 KW [id number] 06/03/24 11:24 KW 05/27/24 06/03/24 11:02 11:24 Wound Care Center Nurse 3 #3 L Lateral Plantar Foot -Ulcer Cleansing Rinsed/ Irrigated with Saline -Primary Dressing Applied Aquacel Extra Aquacel Extra -Primary Dressing Covered/Secured with Dry Gauze,Dry Dry Gauze & Gauze & Roll Roll Gauze, Gauze,Secured Secured with with Tape Tape -Aquacel Extra 1 1 Treatment Response Procedure Tolerated Well Pain Scale: 0-10 Numeric Is Patient Pain Free? Yes Yes WC - Visit Discharge Discharge Condition Stable Stable Ambulatory Status Ambulatory Ambulatory Transportation Private Auto Private Auto Medication Reconcilliation completed & No No provided to patient/care provider Clinical Summary of Care Provided Yes Yes Assessment/Plan Assessment/Plan (1) Abscess of left foot excluding toes: CODE(S): L02.612 - Cutaneous abscess of left foot (2) Delayed wound healing: CODE(S): T14.8XXD - Other injury of unspecified body region, subsequent encounter (3) Chronic ulcer of left foot with fat layer exposed: CODE(S): L97.522 - Non-pressure chronic ulcer of other part of left foot with fat layer exposed (4) HTN (hypertension): CODE(S): I10 - Essential (primary) hypertension QUALIFIERS: Hypertension type: primary hypertension Qualified Code(s): I10 - Essential (primary) hypertension (5) Diabetic ulcer of foot associated with diabetes mellitus due to underlying condition, with fat layer exposed: CODE(S): E08.621 - Diabetes mellitus due to underlying condition with foot ulcer; L97.502 - Non-pressure chronic ulcer of other part of unspecified foot with fat layer exposed QUALIFIERS: Diabetic foot ulcer location: midfoot Laterality: left Qualified Code(s): E08.621 - Diabetes mellitus due to underlying condition with foot ulcer; L97.422 - Non-pressure chronic ulcer of left heel and midfoot with fat layer exposed (6) Type 2 diabetes mellitus without complications: CODE(S): E11.9 - Type 2 diabetes mellitus without complications QUALIFIERS: Diabetes mellitus intermediate designer insulin use: without intermediate designer 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 There has been improvement since his last visit but callus formation is still present. At home wound-care instructions: Wash ulcer daily with antibacterial soap and water. Will have him continue to use Aquacel Extra to ulcer and cover with gauze and roll gauze to secure daily. Keep dressing clean and dry. His work boot was modified on 07/03/23 and again 12/25/23 to try to offload pressure. He forgot to bring insole of his work boot to be modified again. Will have him use single layer tubigrip medium compression to left LE. He reports increased swelling in his ankle and leg when wearing the tubigrip compression so has stopped wearing. Discussed possibly using TCC for offloading in near future but he is unable to do so due to work. We also discussed that there may be a single vessel narrowing that could be preventing healing and talked about possible referral to Vascular surgery to do CTA runoff. Also discussed surgical procedure proposed by podiatry to shave exostosis of bone that is likely causing ulcer and he declines at this time. Off-loading: The patient was instructed to avoid pressure and friction on the affected areas. Reposition every 2 hours at minimum. Avoid prolonged standing and/or dangling of legs. When seated, feet should be elevated at chest level. Frequent ambulation is encouraged. Diet: Patient encouraged to increase protein intake while taking caution to avoid high carbohydrate and/or sugar intake. Labs/cultures/imaging: Wound culture positive 03/27/23 and is currently on Doxycycline. Wound culture showed Staph and Strep and he was treated with Keflex based on sensitivities and use topical Gentamicin for 3 weeks. Wound culture done 09/18/23 was positive for staph epidermidis. He has been on cephalexin and doxycycline. Wound culture was positive for Enterococcus and Linezolid completed. Wound culture was positive and he will continue Flagyl, Cipro and hold cefdinir and decrease doxycycline to once/day. His put him back on Keflex and doxycycline when his ulcer worsened over . Wound culture on 04/29/24 was positive for Staph epidermidis and he completed Linezolid and is back to taking chronic doxycyline and on Bactrim. XR of foot was negative. MRI negative for osteomyelitis and arterial testing negative for arterial insufficiency. Repeat XR of foot was negative. Follow-up: Return in 1 week for wound care follow up. Return sooner or report to the emergency room should symptoms worsen, or new symptoms arise. Note: [employer]ise speech recognition chief of internal medicine software was used to create portions of this document. Sound-alike and misspelled words, as well as other chief of internal medicine errors may be contained in the documentation.
[2024-06-10 09:59] VITALS: BP 131/67; PULSE 77; RESP 18; TEMP 36.6
--- NOTE | 2024-06-10 13:50 | PCM.WC.PN ---
History of Present Illness Date of Service: 06/10/24 Chief Complaint: nonhealing wound left plantar foot History of Wound: Jose J is a 68 y/o gentleman that presents to the wound healing center for evaluation and treatment of a wound to his left plantar foot. He is a patient of Dr. Giordano. He has had a wound to this same area in February 2019 and was seen at [facility] [place] and treated there for 9 weeks with Aquacel and was placed in a wedge shoe to offload his foot. He was treated for this same wound for almost a year at this wound center and was healed in May 2020 and returned in July and was treated until September. He had undergone vascular testing at [facility] in 2018 and this has been repeated 09/2023 without significant arterial disease. 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 He and his did not want to do surgery. He has managed to do well over the last 2 years until the end of October when the area became painful again and began draining. He saw Dr. Giordano and was treated with doxycycline which helped and they had been applying Aquacel that they had from previous treatment but it has not improved. He was treated with a second course of doxycycline and then referred here for treatment. He is still working and walking on his foot in a steel toe boot 4 days a week for 10 hours. He had an offloading pad in his work boot previously but no longer has this in place. He denies claudication with walking. He has moderate to heavy drainage from the ulcer. He has not had any wound cultures taken. 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 He denies fever, chill, nausea, vomiting, redness or odor. Subjective Subjective Jose J returns today for follow up of an ulcer on the bottom of his left foot. His ulcer and drainage have improved a little since last visit. He continues to wear his modified work boot to alleviate pressure to the site of the ulcer of his left foot. He has been tolerating the Aquacel Extra to the ulcer. His wound culture was positive for Staph epidermidis and negative for anaerobic bacteria. He is on Bactrim DS and doxycycline. He denies fever, chills or odor. He had MRI on 10/02/23 which did not show any osteomyelitis of his foot. Arterial testing was also done and did not show any evidence of arterial insufficiency. HgbA1C was 6.5% on 10/09/23. Objective Data Objective Data Vital Signs: Vital Signs Temp Pulse Resp BP O2 Del Method 97.8 F 77 18 131/67 H Room Air 06/10/24 09:59 06/10/24 09:59 06/10/24 09:59 06/10/24 09:59 06/03/24 09:57 Oxygen Delivery Method Room Air Physical Exam Const alert, oriented x3 and no apparent distress General Appearance: cooperative and comfortable HEENT normocephalic and head/scalp atraumatic Resp normal respiratory effort Cardio regular rate and regular rhythm Skin Wounds: wounds noted Wound Narrative: as in clinical panel, mild callus formation surrounding ulcer, no cellulitis or odor Psych mental status grossly normal, thought process normal, cooperative and affect normal Debridement Note Debridement Note Wound debrided: left lateral plantar ulcer Laterality: Left Wound Grade/Stage: Luther grade 1 Type of Debridement: Excisional debridement Anesthesia Used: 5% Lidocaine Gel Depth: Down to and including healthy tissue and in the subcutaneous layer Percentage of wound debrided: 100 Instrument Used: #15 blade and Forceps Tissue Removed: Yellow slough, devitalized tissue Severity: Fat Layer Exposed Amount of bleeding with debridement: Mild Bleeding Controlled with: Pressure Patient tolerated procedure: Patient tolerated procedure well Post-Debridement Measurements and Additional Note: Post-Debridement Measurements/Treatment QUOC - Nurse 1 - General Ulcer Assessment Start: 05/27/24 09:43 Freq: Status: Active Protocol: KANIKA Activity Type Activity Date Activity User E-sign Co-sign Detail Recorded Client Recorded Date Recorded By Document 05/27/24 09:45 RB [id number] 05/27/24 09:48 RB Document 06/03/24 09:57 DS [id number] 06/03/24 09:58 DS Document 06/10/24 09:59 RB [id number] 06/10/24 10:06 RB 05/27/24 06/03/24 06/10/24 09:45 09:57 09:59 - Today's Visit Information Type of service Follow-up Visit Follow-up Visit Follow-up Visit (Physician/SANITOR (Physician/SANITOR (Physician/SANITOR ) ) ) Arrival Mode Ambulatory Ambulatory Ambulatory Transfer Assistance None None Patient Identification Verified (Name & Yes Yes Yes ) Patient Requires Transmission-Based No No No Precautions Vital Signs Temperature (97.8 F-99.1 F) 97.6 F L 97.7 F L 97.8 F Temperature Source Temporal Temporal Temporal Pulse Rate (60-100) 84 77 77 Pulse Location Monitor Monitor Monitor Respiratory Rate (12-18) 18 18 18 Respiratory rate source Observation Observation Observation Oxygen Delivery Method Room Air Blood Pressure (90/60-120/80) 142/68 H 114/55 L 131/67 H Blood Pressure Mean (mm Hg) 92 74 88 Source Monitor Monitor Monitor Position Semi-Fowlers Sitting Semi-Fowlers Blood Pressure Location Left Arm Left Arm Left Arm History Since Last Visit- (Skip if this is Patient's initial visit) Have you changed medications since your No No No last visit? Any new allergies or adverse reactions No No No Had a fall/change in ADL's that may No No No increase risk of falls Signs or symptoms of abuse and/or No No No neglect since last visit Have you been in the hospital since your No No No last visit? Has dressing in place as prescribed Yes Yes Yes Has compression in place as prescribed No N/A N/A Has offloadiing in place as prescribed No N/A N/A Experienced any changes in pain level or No No No management Left Footwear Regular Shoe Regular Shoe Right Footwear Regular Shoe Regular Shoe Pain Scale: 0-10 Numeric Is Patient Pain Free? Yes Yes Yes WC - Nurse 1 - General Ulcer Measurement Start: 05/27/24 09:43 Freq: Status: Active Protocol: Activity Type Activity Date Activity User E-sign Co-sign Detail Recorded Client Recorded Date Recorded By Document 05/27/24 09:45 RB [id number] 05/27/24 09:48 RB Document 06/03/24 09:58 DS [id number] 06/03/24 10:04 DS Document 06/10/24 09:59 RB [id number] 06/10/24 10:06 RB 05/27/24 06/03/24 06/10/24 09:45 09:58 09:59 Wound Center Nurse 1 #3 L Lateral Plantar Foot -Combined with other wound No No -Current Size (cm) - Length 1.2 1.1 1 -Current Size (cm) - Width 1 1.1 1 -Current Size (cm) - Depth 0.1 0.1 0.1 -Total Square Cm 1.2 1.21 1 -Photo Taken No -Tunneling No No No -Undermining/Tunneling No No No -Circular Undermining No No No -Exudate Amt Medium Small Medium -Exudate Type Serosanguineous Serosanguineous Serosanguineous -Wound Margin Distinct, Distinct, Distinct, Outline Outline Outline Attached Attached Attached -Granulation Amt Medium (34-66%) Medium (34-66%) Medium (34-66%) -Granulation Quality [place] -Slough/Fibrin Yes Yes -Necrosis Amt Medium (34-66%) Small (1-33%) Medium (34-66%) -Necrotic Tissue Type Adherent Slough Adherent Slough Adherent Slough -Structure Exposed N/A N/A -Texture (Flory-wound Skin Appearance) Assessed,Callus Assessed Assessed,Callus -Moisture (Flory-wound Skin Appearance) Assessed Assessed Assessed -Color (Flory-wound Skin Appearance) Assessed Assessed Assessed -Temperature (Flory-wound Skin No Abnormality No Abnormality No Abnormality Appearance) (Pt Warm) (Pt Warm) (Pt Warm) -Tenderness on Palpation (Flory-wound No Skin Appearance) -Ulcer Cleansing Wound Cleanser Soap and Water Wound Cleanser -Foul Odor after Cleansing No No No -Anesthetic Used 5% Lidocaine 5% Lidocaine 5% Lidocaine Gel Gel Gel WC - Nurse 2 - General Ulcer CM Notes Start: 05/27/24 09:43 Freq: Status: Active Protocol: Activity Type Activity Date Activity User E-sign Co-sign Detail Recorded Client Recorded Date Recorded By Document 05/27/24 10:33 [id number] 05/27/24 10:47 Document 06/03/24 11:06 [id number] 06/03/24 11:16 Document 06/10/24 10:30 [id number] 06/10/24 10:41 05/27/24 06/03/24 06/10/24 10:33 11:06 10:30 Wound Center Nurse 2 #3 L Lateral Plantar Foot -Time 10:33 11:06 10:30 -Correct Patient Yes Yes Yes -Correct Side, Site, Position Yes Yes Yes -Correct Procedure Yes Yes Yes -Procedure Performed Yes Yes Yes -Type of Procedure Debridement Debridement Debridement -Clinical Debridement Subcutaneous Subcutaneous Subcutaneous -Tissue Removed Subcutaneous Subcutaneous Subcutaneous -Post Debridement (cm) - Length 1.3 1.0 1.1 -Post Debridement (cm) - Width 1.0 1.0 0.9 -Post Debridement (cm) - Depth 0.1 0.1 0.1 -Total Square (Post) (cm) 1.30 1.00 0.99 -Area of Debridement (cm) - Length 1.3 1.0 1.1 -Area of Debridement (cm) - Width 1.0 1.0 0.9 -Total Square (Area) (cm) 1.30 1.00 0.99 -Tunneling No No No -Undermining/Tunneling No No No -Circular Undermining No No No -Wound/Ulcer Outcome Not Healed Not Healed Not Healed -Ulcer Cleansing Rinsed/ Rinsed/ Rinsed/ Irrigated with Irrigated with Irrigated with Saline Saline Saline -Foul Odor after Cleansing No No No -Bioengineered Tissue No No -Bleeding Controlled with Pressure Pressure Pressure -Treatment Response Procedure Procedure Procedure Tolerated Well Tolerated Well Tolerated Well -Debridement - Subq, 1st 20sq cm Yes Yes Yes Pain Scale: 0-10 Numeric Is Patient Pain Free? Yes Yes Yes WC - Nurse 3 - General Ulcer D/C NN Start: 05/27/24 09:43 Freq: Status: Active Protocol: Activity Type Activity Date Activity User E-sign Co-sign Detail Recorded Client Recorded Date Recorded By Document 05/27/24 11:02 RB [id number] 05/27/24 11:02 RB Document 06/03/24 11:24 KW [id number] 06/03/24 11:24 KW Document 06/10/24 11:21 RB [id number] 06/10/24 11:22 RB 05/27/24 06/03/24 06/10/24 11:02 11:24 11:21 Wound Care Center Nurse 3 #3 L Lateral Plantar Foot -Ulcer Cleansing Rinsed/ Wound Cleanser Irrigated with Saline -Primary Dressing Applied Aquacel Extra Aquacel Extra -Primary Dressing Applied Aquacel Extra -Primary Dressing Covered/Secured with Dry Gauze,Dry Dry Gauze & Dry Gauze & Gauze & Roll Roll Gauze, Roll Gauze, Gauze,Secured Secured with Secured with with Tape Tape Tape -Aquacel Extra 1 1 1 Treatment Response Procedure Procedure Tolerated Well Tolerated Well Pain Scale: 0-10 Numeric Is Patient Pain Free? Yes Yes Yes WC - Visit Discharge Discharge Condition Stable Stable Stable Ambulatory Status Ambulatory Ambulatory Ambulatory Transportation Private Auto Private Auto Private Auto Accompanied by Medication Reconcilliation completed & No No No provided to patient/care provider Clinical Summary of Care Provided Yes Yes Yes Assessment/Plan Assessment/Plan (1) Abscess of left foot excluding toes: CODE(S): L02.612 - Cutaneous abscess of left foot (2) Delayed wound healing: CODE(S): T14.8XXD - Other injury of unspecified body region, subsequent encounter (3) Chronic ulcer of left foot with fat layer exposed: CODE(S): L97.522 - Non-pressure chronic ulcer of other part of left foot with fat layer exposed (4) HTN (hypertension): CODE(S): I10 - Essential (primary) hypertension QUALIFIERS: Hypertension type: primary hypertension Qualified Code(s): I10 - Essential (primary) hypertension (5) Diabetic ulcer of foot associated with diabetes mellitus due to underlying condition, with fat layer exposed: CODE(S): E08.621 - Diabetes mellitus due to underlying condition with foot ulcer; L97.502 - Non-pressure chronic ulcer of other part of unspecified foot with fat layer exposed QUALIFIERS: Diabetic foot ulcer location: midfoot Laterality: left Qualified Code(s): E08.621 - Diabetes mellitus due to underlying condition with foot ulcer; L97.422 - Non-pressure chronic ulcer of left heel and midfoot with fat layer exposed (6) Type 2 diabetes mellitus without complications: CODE(S): E11.9 - Type 2 diabetes mellitus without complications QUALIFIERS: Diabetes mellitus long wall shear operator insulin use: without long wall shear operator 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 There has been improvement since his last visit but callus formation is still present. At home wound-care instructions: Wash ulcer daily with antibacterial soap and water. Will have him continue to use Aquacel Extra to ulcer and cover with gauze and roll gauze to secure daily. Keep dressing clean and dry. His work boot was modified on 07/03/23 and again 12/25/23 to try to offload pressure. He forgot to bring insole of his work boot to be modified again. Will have him use single layer tubigrip medium compression to left LE. He reports increased swelling in his ankle and leg when wearing the tubigrip compression so has stopped wearing. Discussed possibly using TCC for offloading in near future but he is unable to do so due to work. We also discussed that there may be a single vessel narrowing that could be preventing healing and talked about possible referral to Vascular surgery to do CTA runoff. Also discussed surgical procedure proposed by podiatry to shave exostosis of bone that is likely causing ulcer and he declines at this time. Off-loading: The patient was instructed to avoid pressure and friction on the affected areas. Reposition every 2 hours at minimum. Avoid prolonged standing and/or dangling of legs. When seated, feet should be elevated at chest level. Frequent ambulation is encouraged. Diet: Patient encouraged to increase protein intake while taking caution to avoid high carbohydrate and/or sugar intake. Labs/cultures/imaging: Wound culture positive 03/27/23 and is currently on Doxycycline. Wound culture showed Staph and Strep and he was treated with Keflex based on sensitivities and use topical Gentamicin for 3 weeks. Wound culture done 09/18/23 was positive for staph epidermidis. He has been on cephalexin and doxycycline. Wound culture was positive for Enterococcus and Linezolid completed. Wound culture was positive and he will continue Flagyl, Cipro and hold cefdinir and decrease doxycycline to once/day. His put him back on Keflex and doxycycline when his ulcer worsened over . Wound culture on 04/29/24 was positive for Staph epidermidis and he completed Linezolid and is back to taking chronic doxycyline and on Bactrim. XR of foot was negative. MRI negative for osteomyelitis and arterial testing negative for arterial insufficiency. Repeat XR of foot was negative. Follow-up: Return in 1 week for wound care follow up. Return sooner or report to the emergency room should symptoms worsen, or new symptoms arise. Note: [employer] speech recognition engine tester software was used to create portions of this document. Sound-alike and misspelled words, as well as other engine tester errors may be contained in the documentation.
[2024-06-17 09:47] VITALS: BP 124/73; PULSE 79; RESP 18; TEMP 35.9
--- NOTE | 2024-06-17 13:13 | PCM.WC.PN ---
History of Present Illness Date of Service: 06/17/24 Chief Complaint: nonhealing wound left plantar foot History of Wound: Jose J is a 68 y/o gentleman that presents to the wound healing center for evaluation and treatment of a wound to his left plantar foot. He is a patient of Dr. Giordano. He has had a wound to this same area in February 2019 and was seen at [facility] [place] and treated there for 9 weeks with Aquacel and was placed in a wedge shoe to offload his foot. He was treated for this same wound for almost a year at this wound center and was healed in May 2020 and returned in July and was treated until September. He had undergone vascular testing at [facility] in 2018 and this has been repeated 09/2023 without significant arterial disease. 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 He and his did not want to do surgery. He has managed to do well over the last 2 years until the end of October when the area became painful again and began draining. He saw Dr. Giordano and was treated with doxycycline which helped and they had been applying Aquacel that they had from previous treatment but it has not improved. He was treated with a second course of doxycycline and then referred here for treatment. He is still working and walking on his foot in a steel toe boot 4 days a week for 10 hours. He had an offloading pad in his work boot previously but no longer has this in place. He denies claudication with walking. He has moderate to heavy drainage from the ulcer. He has not had any wound cultures taken. 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 He denies fever, chill, nausea, vomiting, redness or odor. Subjective Subjective Jose J returns today for follow up of an ulcer on the bottom of his left foot. His ulcer and drainage have improved since last visit. He continues to wear his modified work boot to alleviate pressure to the site of the ulcer of his left foot. He has been tolerating the Aquacel Extra to the ulcer. His wound culture was positive for Staph epidermidis and negative for anaerobic bacteria. He is on Bactrim DS and doxycycline. He denies fever, chills or odor. He had MRI on 10/02/23 which did not show any osteomyelitis of his foot. Arterial testing was also done and did not show any evidence of arterial insufficiency. HgbA1C was 6.5% on 10/09/23. Objective Data Objective Data Vital Signs: Vital Signs Temp Pulse Resp BP O2 Del Method 96.6 F L 79 18 124/73 H Room Air 06/17/24 09:47 06/17/24 09:47 06/17/24 09:47 06/17/24 09:47 06/17/24 09:47 Oxygen Delivery Method Room Air Physical Exam Const alert, oriented x3 and no apparent distress General Appearance: cooperative and comfortable HEENT normocephalic and head/scalp atraumatic Resp normal respiratory effort Effort and Inspection: able to speak in complete sentences Auscultation: rales, rhonchi and diminished lung sounds Cardio regular rate and regular rhythm Skin Wounds: wounds noted Wound Narrative: as in clinical panel, mild callus formation surrounding ulcer, no cellulitis or odor Psych mental status grossly normal, thought process normal, cooperative and affect normal Debridement Note Debridement Note Wound debrided: left lateral plantar ulcer Laterality: Left Wound Grade/Stage: Luther grade 1 Type of Debridement: Excisional debridement Anesthesia Used: 5% Lidocaine Gel Depth: Down to and including healthy tissue and in the subcutaneous layer Percentage of wound debrided: 100 Instrument Used: #15 blade and Forceps Tissue Removed: Yellow slough, devitalized tissue Severity: Fat Layer Exposed Amount of bleeding with debridement: Mild Bleeding Controlled with: Pressure Patient tolerated procedure: Patient tolerated procedure well Post-Debridement Measurements and Additional Note: Post-Debridement Measurements/Treatment WC - Nurse 1 - General Ulcer Assessment Start: 05/27/24 09:43 Freq: Status: Active Protocol: QUOC.AMADA Activity Type Activity Date Activity User E-sign Co-sign Detail Recorded Client Recorded Date Recorded By Document 05/27/24 09:45 RB [id number] 05/27/24 09:48 RB Document 06/03/24 09:57 DS [id number] 06/03/24 09:58 DS Document 06/10/24 09:59 RB [id number] 06/10/24 10:06 RB Document 06/17/24 09:47 KW [id number] 06/17/24 09:50 KW 05/27/24 06/03/24 06/10/24 09:45 09:57 09:59 - Today's Visit Information Type of service Follow-up Visit Follow-up Visit Follow-up Visit (Physician/INSTALLER APPRENTICE (Physician/INSTALLER APPRENTICE (Physician/INSTALLER APPRENTICE ) ) ) Arrival Mode Ambulatory Ambulatory Ambulatory Transfer Assistance None None Accompanied by Patient Identification Verified (Name & Yes Yes Yes ) Patient Requires Transmission-Based No No No Precautions Vital Signs Temperature (97.8 F-99.1 F) 97.6 F L 97.7 F L 97.8 F Temperature Source Temporal Temporal Temporal Pulse Rate (60-100) 84 77 77 Pulse Location Monitor Monitor Monitor Respiratory Rate (12-18) 18 18 18 Respiratory rate source Observation Observation Observation Oxygen Delivery Method Room Air Blood Pressure (90/60-120/80) 142/68 H 114/55 L 131/67 H Blood Pressure Mean (mm Hg) 92 74 88 Source Monitor Monitor Monitor Position Semi-Fowlers Sitting Semi-Fowlers Blood Pressure Location Left Arm Left Arm Left Arm History Since Last Visit- (Skip if this is Patient's initial visit) Have you changed medications since your No No No last visit? Any new allergies or adverse reactions No No No Had a fall/change in ADL's that may No No No increase risk of falls Signs or symptoms of abuse and/or No No No neglect since last visit Have you been in the hospital since your No No No last visit? Has dressing in place as prescribed Yes Yes Yes Has compression in place as prescribed No N/A N/A Has offloadiing in place as prescribed No N/A N/A Experienced any changes in pain level or No No No management Left Footwear Regular Shoe Regular Shoe Right Footwear Regular Shoe Regular Shoe Pain Scale: 0-10 Numeric Is Patient Pain Free? Yes Yes Yes 06/17/24 09:47 - Today's Visit Information Type of service Follow-up Visit (Physician/INSTALLER APPRENTICE ) Arrival Mode Ambulatory Transfer Assistance Accompanied by Patient Identification Verified (Name & Yes ) Patient Requires Transmission-Based Precautions Vital Signs Temperature (97.8 F-99.1 F) 96.6 F L Temperature Source Temporal Pulse Rate (60-100) 79 Pulse Location Monitor Respiratory Rate (12-18) 18 Respiratory rate source Observation Oxygen Delivery Method Room Air Blood Pressure (90/60-120/80) 124/73 H Blood Pressure Mean (mm Hg) 90 Source Monitor Position Semi-Fowlers Blood Pressure Location Left Arm History Since Last Visit- (Skip if this is Patient's initial visit) Have you changed medications since your No last visit? Any new allergies or adverse reactions No Had a fall/change in ADL's that may No increase risk of falls Signs or symptoms of abuse and/or No neglect since last visit Have you been in the hospital since your No last visit? Has dressing in place as prescribed Yes Has compression in place as prescribed N/A Has offloadiing in place as prescribed N/A Experienced any changes in pain level or No management Left Footwear Regular Shoe Right Footwear Regular Shoe Pain Scale: 0-10 Numeric Is Patient Pain Free? Yes WC - Nurse 1 - General Ulcer Measurement Start: 05/27/24 09:43 Freq: Status: Active Protocol: Activity Type Activity Date Activity User E-sign Co-sign Detail Recorded Client Recorded Date Recorded By Document 05/27/24 09:45 RB [id number] 05/27/24 09:48 RB Document 06/03/24 09:58 DS [id number] 06/03/24 10:04 DS Document 06/10/24 09:59 RB [id number] 06/10/24 10:06 RB Document 06/17/24 09:47 KW [id number] 06/17/24 09:50 KW 05/27/24 06/03/24 06/10/24 09:45 09:58 09:59 Wound Center Nurse 1 #3 L Lateral Plantar Foot -Combined with other wound No No -Current Size (cm) - Length 1.2 1.1 1 -Current Size (cm) - Width 1 1.1 1 -Current Size (cm) - Depth 0.1 0.1 0.1 -Total Square Cm 1.2 1.21 1 -Photo Taken No -Tunneling No No No -Undermining/Tunneling No No No -Circular Undermining No No No -Exudate Amt Medium Small Medium -Exudate Type Serosanguineous Serosanguineous Serosanguineous -Wound Margin Distinct, Distinct, Distinct, Outline Outline Outline Attached Attached Attached -Granulation Amt Medium (34-66%) Medium (34-66%) Medium (34-66%) -Granulation Quality Aldrich Aldrich Aldrich -Slough/Fibrin Yes Yes -Necrosis Amt Medium (34-66%) Small (1-33%) Medium (34-66%) -Necrotic Tissue Type Adherent Slough Adherent Slough Adherent Slough -Structure Exposed N/A N/A -Texture (Flory-wound Skin Appearance) Assessed,Callus Assessed Assessed,Callus -Moisture (Flory-wound Skin Appearance) Assessed Assessed Assessed -Color (Flory-wound Skin Appearance) Assessed Assessed Assessed -Temperature (Flory-wound Skin No Abnormality No Abnormality No Abnormality Appearance) (Pt Warm) (Pt Warm) (Pt Warm) -Tenderness on Palpation (Flory-wound No Skin Appearance) -Ulcer Cleansing Wound Cleanser Soap and Water Wound Cleanser -Foul Odor after Cleansing No No No -Anesthetic Used 5% Lidocaine 5% Lidocaine 5% Lidocaine Gel Gel Gel 06/17/24 09:47 Wound Center Nurse 1 #3 L Lateral Plantar Foot -Combined with other wound -Current Size (cm) - Length 1 -Current Size (cm) - Width 1 -Current Size (cm) - Depth 0.1 -Total Square Cm 1 -Photo Taken -Tunneling -Undermining/Tunneling -Circular Undermining -Exudate Amt Small -Exudate Type Serosanguineous -Wound Margin Distinct, Outline Attached -Granulation Amt Large (67-100%) -Granulation Quality Aldrich -Slough/Fibrin -Necrosis Amt -Necrotic Tissue Type -Structure Exposed -Texture (Flory-wound Skin Appearance) Assessed -Moisture (Flory-wound Skin Appearance) Assessed -Color (Flory-wound Skin Appearance) Assessed -Temperature (Flory-wound Skin No Abnormality Appearance) (Pt Warm) -Tenderness on Palpation (Flory-wound No Skin Appearance) -Ulcer Cleansing Rinsed/ Irrigated with Saline -Foul Odor after Cleansing No -Anesthetic Used 5% Lidocaine Gel WC - Nurse 2 - General Ulcer CM Notes Start: 05/27/24 09:43 Freq: Status: Active Protocol: Activity Type Activity Date Activity User E-sign Co-sign Detail Recorded Client Recorded Date Recorded By Document 05/27/24 10:33 [id number] 05/27/24 10:47 Document 06/03/24 11:06 [id number] 06/03/24 11:16 GM Document 06/10/24 10:30 [id number] 06/10/24 10:41 Document 06/17/24 09:56 [id number] 06/17/24 10:06 [id number]/[id number] 06/10/24 10:33 11:06 10:30 Wound Center Nurse 2 #3 L Lateral Plantar Foot -Time 10:33 11:06 10:30 -Correct Patient Yes Yes Yes -Correct Side, Site, Position Yes Yes Yes -Correct Procedure Yes Yes Yes -Procedure Performed Yes Yes Yes -Type of Procedure Debridement Debridement Debridement -Clinical Debridement Subcutaneous Subcutaneous Subcutaneous -Tissue Removed Subcutaneous Subcutaneous Subcutaneous -Post Debridement (cm) - Length 1.3 1.0 1.1 -Post Debridement (cm) - Width 1.0 1.0 0.9 -Post Debridement (cm) - Depth 0.1 0.1 0.1 -Total Square (Post) (cm) 1.30 1.00 0.99 -Area of Debridement (cm) - Length 1.3 1.0 1.1 -Area of Debridement (cm) - Width 1.0 1.0 0.9 -Total Square (Area) (cm) 1.30 1.00 0.99 -Tunneling No No No -Undermining/Tunneling No No No -Circular Undermining No No No -Wound/Ulcer Outcome Not Healed Not Healed Not Healed -Ulcer Cleansing Rinsed/ Rinsed/ Rinsed/ Irrigated with Irrigated with Irrigated with Saline Saline Saline -Foul Odor after Cleansing No No No -Bioengineered Tissue No No -Bleeding Controlled with Pressure Pressure Pressure -Treatment Response Procedure Procedure Procedure Tolerated Well Tolerated Well Tolerated Well -Debridement - Subq, 1st 20sq cm Yes Yes Yes Pain Scale: 0-10 Numeric Is Patient Pain Free? Yes Yes Yes 06/17/24 09:56 Wound Center Nurse 2 #3 L Lateral Plantar Foot -Time 09:57 -Correct Patient Yes -Correct Side, Site, Position Yes -Correct Procedure Yes -Procedure Performed Yes -Type of Procedure Debridement -Clinical Debridement Subcutaneous -Tissue Removed Subcutaneous -Post Debridement (cm) - Length 1.2 -Post Debridement (cm) - Width 0.9 -Post Debridement (cm) - Depth 0.1 -Total Square (Post) (cm) 1.08 -Area of Debridement (cm) - Length 1.2 -Area of Debridement (cm) - Width 0.9 -Total Square (Area) (cm) 1.08 -Tunneling No -Undermining/Tunneling No -Circular Undermining No -Wound/Ulcer Outcome Not Healed -Ulcer Cleansing Rinsed/ Irrigated with Saline -Foul Odor after Cleansing No -Bioengineered Tissue No -Bleeding Controlled with Pressure -Treatment Response Procedure Tolerated Well -Debridement - Subq, 1st 20sq cm Yes Pain Scale: 0-10 Numeric Is Patient Pain Free? Yes - Nurse 3 - General Ulcer D/C NN Start: 05/27/24 09:43 Freq: Status: Active Protocol: Activity Type Activity Date Activity User E-sign Co-sign Detail Recorded Client Recorded Date Recorded By Document 05/27/24 11:02 RB [id number] 05/27/24 11:02 RB Document 06/03/24 11:24 KW [id number] 06/03/24 11:24 KW Document 06/10/24 11:21 RB [id number] 06/10/24 11:22 RB Document 06/17/24 10:08 KW [id number] 06/17/24 10:13 KW 05/27/24 06/03/24 06/10/24 11:02 11:24 11:21 Wound Care Center Nurse 3 #3 L Lateral Plantar Foot -Ulcer Cleansing Rinsed/ Wound Cleanser Irrigated with Saline -Primary Dressing Applied Aquacel Extra Aquacel Extra -Primary Dressing Applied Aquacel Extra -Primary Dressing Covered/Secured with Dry Gauze,Dry Dry Gauze & Dry Gauze & Gauze & Roll Roll Gauze, Roll Gauze, Gauze,Secured Secured with Secured with with Tape Tape Tape -Aquacel Extra 1 1 1 Treatment Response Procedure Procedure Tolerated Well Tolerated Well Pain Scale: 0-10 Numeric Is Patient Pain Free? Yes Yes Yes WC - Visit Discharge Discharge Condition Stable Stable Stable Ambulatory Status Ambulatory Ambulatory Ambulatory Transportation Private Auto Private Auto Private Auto Accompanied by Medication Reconcilliation completed & No No No provided to patient/care provider Clinical Summary of Care Provided Yes Yes Yes 06/17/24 10:08 Wound Care Center Nurse 3 #3 L Lateral Plantar Foot -Ulcer Cleansing -Primary Dressing Applied -Primary Dressing Applied Aquacel Extra -Primary Dressing Covered/Secured with Dry Gauze & Roll Gauze, Secured with Tape -Aquacel Extra 1 Treatment Response Pain Scale: 0-10 Numeric Is Patient Pain Free? Yes WC - Visit Discharge Discharge Condition Stable Ambulatory Status Ambulatory Transportation Private Auto Accompanied by Medication Reconcilliation completed & No provided to patient/care provider Clinical Summary of Care Provided Yes Assessment/Plan Assessment/Plan (1) Abscess of left foot excluding toes: CODE(S): L02.612 - Cutaneous abscess of left foot (2) Delayed wound healing: CODE(S): T14.8XXD - Other injury of unspecified body region, subsequent encounter (3) Chronic ulcer of left foot with fat layer exposed: CODE(S): L97.522 - Non-pressure chronic ulcer of other part of left foot with fat layer exposed (4) HTN (hypertension): CODE(S): I10 - Essential (primary) hypertension QUALIFIERS: Hypertension type: primary hypertension Qualified Code(s): I10 - Essential (primary) hypertension (5) Diabetic ulcer of foot associated with diabetes mellitus due to underlying condition, with fat layer exposed: CODE(S): E08.621 - Diabetes mellitus due to underlying condition with foot ulcer; L97.502 - Non-pressure chronic ulcer of other part of unspecified foot with fat layer exposed QUALIFIERS: Diabetic foot ulcer location: midfoot Laterality: left Qualified Code(s): E08.621 - Diabetes mellitus due to underlying condition with foot ulcer; L97.422 - Non-pressure chronic ulcer of left heel and midfoot with fat layer exposed (6) Type 2 diabetes mellitus without complications: CODE(S): E11.9 - Type 2 diabetes mellitus without complications QUALIFIERS: Diabetes mellitus jail insulin use: without jail 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 There has been improvement since his last visit but callus formation is still present. I suspect noncompliance of offloading to be a major factor in his delayed healing. At home wound-care instructions: Wash ulcer daily with antibacterial soap and water. Will have him continue to use Aquacel Extra to ulcer and cover with gauze and roll gauze to secure daily. Keep dressing clean and dry. His work boot was modified on 07/03/23 and again 12/25/23 to try to offload pressure. He forgot to bring insole of his work boot to be modified again. Will have him use single layer tubigrip medium compression to left LE. He reports increased swelling in his ankle and leg when wearing the tubigrip compression so has stopped wearing. Discussed possibly using TCC for offloading in near future but he is unable to do so due to work. We also discussed that there may be a single vessel narrowing that could be preventing healing and talked about possible referral to Vascular surgery to do CTA runoff. Also discussed surgical procedure proposed by podiatry to shave exostosis of bone that is likely causing ulcer and he declines at this time. Off-loading: The patient was instructed to avoid pressure and friction on the affected areas. Reposition every 2 hours at minimum. Avoid prolonged standing and/or dangling of legs. When seated, feet should be elevated at chest level. Frequent ambulation is encouraged. Diet: Patient encouraged to increase protein intake while taking caution to avoid high carbohydrate and/or sugar intake. Labs/cultures/imaging: Wound culture positive 03/27/23 and is currently on Doxycycline. Wound culture showed Staph and Strep and he was treated with Keflex based on sensitivities and use topical Gentamicin for 3 weeks. Wound culture done 09/18/23 was positive for staph epidermidis. He has been on cephalexin and doxycycline. Wound culture was positive for Enterococcus and Linezolid completed. Wound culture was positive and he will continue Flagyl, Cipro and hold cefdinir and decrease doxycycline to once/day. His put him back on Keflex and doxycycline when his ulcer worsened over . Wound culture on 04/29/24 was positive for Staph epidermidis and he completed Linezolid and is back to taking chronic doxycyline and on Bactrim. XR of foot was negative. MRI negative for osteomyelitis and arterial testing negative for arterial insufficiency. Repeat XR of foot was negative. Follow-up: Return in 1 week for wound care follow up. Return sooner or report to the emergency room should symptoms worsen, or new symptoms arise. Note: [employer] speech recognition intranet support software was used to create portions of this document. Sound-alike and misspelled words, as well as other intranet support errors may be contained in the documentation.
== END 2024-06-24 23:59 | disposition home or self-care (01) ==
LOC: WC 10:00
PROVIDERS: PCP Family Medicine; Referring Provider Family Medicine; Visit Provider Family Medicine
DX: E11.621 Type 2 diabetes mellitus with foot ulcer (principal); L97.422 Non-pressure chronic ulcer of left heel and midfoot with fat layer exposed; L02.612 Cutaneous abscess of left foot; I10 Essential (primary) hypertension; Z79.899 Other long term (current) drug therapy
CPT/HCPCS: 11042

== ENCOUNTER 2024-07-22 10:15 | Outpatient (RCR) | payer BC, SELFPAY ==
[2024-06-25 02:14] VITALS: BP 124/73; PULSE 79; RESP 18; TEMP 35.9
[2024-07-01 10:01] VITALS: BP 127/61; PULSE 68; RESP 14; TEMP 36.6
--- NOTE | 2024-07-01 15:21 | PN.PCM_ITS ---
History of Present Illness Date of Service: 07/01/24 Chief Complaint: nonhealing wound left plantar foot History of Wound: Jose J is a 68 y/o gentleman that presents to the wound healing center for evaluation and treatment of a wound to his left plantar foot. He is a patient of Dr. Giordano. He has had a wound to this same area in February 2019 and was seen at [facility] [place] and treated there for 9 weeks with Aquacel and was placed in a wedge shoe to offload his foot. He was treated for this same wound for almost a year at this wound center and was healed in May 2020 and returned in July and was treated until September. He had undergone vascular testing at [facility] in 2018 and this has been repeated 09/2023 without significant arterial disease. 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 He and his did not want to do surgery. He has managed to do well over the last 2 years until the end of October when the area became painful again and began draining. He saw Dr. Giordano and was treated with doxycycline which helped and they had been applying Aquacel that they had from previous treatment but it has not improved. He was treated with a second course of doxycycline and then referred here for treatment. He is still working and walking on his foot in a steel toe boot 4 days a week for 10 hours. He had an offloading pad in his work boot previously but no longer has this in place. He denies claudication with walking. He has moderate to heavy drainage from the ulcer. He has not had any wound cultures taken. 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 He denies fever, chill, nausea, vomiting, redness or odor. Subjective Subjective Jose J returns today for follow up of an ulcer on the bottom of his left foot. His ulcer and drainage have improved since last visit. He continues to wear his modified work boot to alleviate pressure to the site of the ulcer of his left foot. He has been tolerating the Aquacel Extra to the ulcer. His wound culture was positive for Staph epidermidis and negative for anaerobic bacteria. He is on Bactrim DS and doxycycline. He denies fever, chills or odor. He had MRI on 10/02/23 which did not show any osteomyelitis of his foot. Arterial testing was also done and did not show any evidence of arterial insufficiency. HgbA1C was 6.5% on 10/09/23. Objective Data Objective Data Vital Signs: Vital Signs Temp Pulse Resp BP 97.8 F 68 14 127/61 H 07/01/24 10:01 07/01/24 10:01 07/01/24 10:01 07/01/24 10:01 Physical Exam Const alert, oriented x3 and no apparent distress General Appearance: cooperative and comfortable HEENT normocephalic and head/scalp atraumatic Resp normal respiratory effort Effort and Inspection: able to speak in complete sentences Auscultation: rales, rhonchi and diminished lung sounds Cardio regular rate and regular rhythm Skin Wounds: wounds noted Wound Narrative: as in clinical panel, mild callus formation surrounding ulcer, no cellulitis or odor Psych mental status grossly normal, thought process normal, cooperative and affect normal Debridement Note Debridement Note Wound debrided: left lateral plantar ulcer Laterality: Left Wound Grade/Stage: Luther grade 1 Type of Debridement: Excisional debridement Anesthesia Used: 5% Lidocaine Gel Depth: Down to and including healthy tissue and in the subcutaneous layer Percentage of wound debrided: 100 Instrument Used: #15 blade and Forceps Tissue Removed: Yellow slough, devitalized tissue Severity: Fat Layer Exposed Amount of bleeding with debridement: Mild Bleeding Controlled with: Pressure Patient tolerated procedure: Patient tolerated procedure well Post-Debridement Measurements and Additional Note: Post-Debridement Measurements/Treatment - Nurse 1 - General Ulcer Assessment Start: 07/01/24 10:01 Freq: Status: Active Protocol: KANIKA Activity Type Activity Date Activity User E-sign Co-sign Detail Recorded Client Recorded Date Recorded By Document 07/01/24 10:01 [email or web address] [id number] 07/01/24 10:07 ML 07/01/24 10:01 - Today's Visit Information Type of service Follow-up Visit (Physician/PUBLISHING MANAGER ) Arrival Mode Ambulatory Patient Identification Verified (Name & Yes ) Patient Requires Transmission-Based No Precautions Vital Signs Temperature (97.8 F-99.1 F) 97.8 F Temperature Source Temporal Pulse Rate (60-100) 68 Pulse Location Monitor Respiratory Rate (12-18) 14 Respiratory rate source Observation Blood Pressure (90/60-120/80) 127/61 H Blood Pressure Mean (mm Hg) 83 Source Monitor History Since Last Visit- (Skip if this is Patient's initial visit) Have you changed medications since your No last visit? Any new allergies or adverse reactions No Had a fall/change in ADL's that may No increase risk of falls Have you been in the hospital since your No last visit? Has dressing in place as prescribed Yes Has compression in place as prescribed N/A Has offloadiing in place as prescribed N/A Experienced any changes in pain level or No management Pain Scale: 0-10 Numeric Is Patient Pain Free? Yes WC - Nurse 1 - General Ulcer Measurement Start: 07/01/24 10:01 Freq: Status: Active Protocol: Activity Type Activity Date Activity User E-sign Co-sign Detail Recorded Client Recorded Date Recorded By Document 07/01/24 10:01 [id number] 07/01/24 10:07 07/01/24 10:01 Wound Center Nurse 1 #3 L Lateral Plantar Foot -Current Size (cm) - Length 1 -Current Size (cm) - Width 0.5 -Current Size (cm) - Depth 0.2 -Total Square Cm 0.5 -Exudate Amt Medium -Exudate Type Serosanguineous -Wound Margin Distinct, Outline Attached -Granulation Amt Medium (34-66%) -Slough/Fibrin Yes -Necrosis Amt Medium (34-66%) -Necrotic Tissue Type Adherent Slough -Texture (Flory-wound Skin Appearance) Assessed -Moisture (Flory-wound Skin Appearance) Assessed -Color (Flory-wound Skin Appearance) Assessed -Temperature (Flory-wound Skin No Abnormality Appearance) (Pt Warm) -Tenderness on Palpation (Flory-wound No Skin Appearance) -Ulcer Cleansing Rinsed/ Irrigated with Saline -Foul Odor after Cleansing No -Anesthetic Used 5% Lidocaine Gel WC - Nurse 2 - General Ulcer CM Notes Start: 07/01/24 10:01 Freq: Status: Active Protocol: Activity Type Activity Date Activity User E-sign Co-sign Detail Recorded Client Recorded Date Recorded By Document 07/01/24 11:26 [facility] [id number] 07/01/24 11:37 [facility] 07/01/24 11:26 Wound Center Nurse 2 -Time 11:27 -Correct Patient Yes -Correct Side, Site, Position Yes -Correct Procedure Yes -Procedure Performed Yes -Type of Procedure Debridement -Clinical Debridement Subcutaneous -Tissue Removed Subcutaneous -Post Debridement (cm) - Length 1.0 -Post Debridement (cm) - Width 0.9 -Post Debridement (cm) - Depth 0.1 -Total Square (Post) (cm) 0.90 -Area of Debridement (cm) - Length 1.0 -Area of Debridement (cm) - Width 0.9 -Total Square (Area) (cm) 0.90 -Tunneling No -Undermining/Tunneling No -Circular Undermining No -Wound/Ulcer Outcome Not Healed -Ulcer Cleansing Rinsed/ Irrigated with Saline -Foul Odor after Cleansing No -Bioengineered Tissue No -Bleeding Controlled with Pressure -Treatment Response Procedure Tolerated Well -Debridement - Subq, 1st 20sq cm Yes Pain Scale: 0-10 Numeric Is Patient Pain Free? Yes - Nurse 3 - General Ulcer D/C NN Start: 07/01/24 10:01 Freq: Status: Active Protocol: Activity Type Activity Date Activity User E-sign Co-sign Detail Recorded Client Recorded Date Recorded By Document 07/01/24 11:56 [id number] 07/01/24 11:57 07/01/24 11:56 Wound Care Center Nurse 3 #3 L Lateral Plantar Foot -Ulcer Cleansing Rinsed/ Irrigated with Saline -Primary Dressing Applied Aquacel Extra -Primary Dressing Covered/Secured with Dry Gauze,Dry Gauze & Roll Gauze,Secured with Tape -Aquacel Extra 1 Treatment Response Procedure Tolerated Well Pain Scale: 0-10 Numeric Is Patient Pain Free? Yes - Visit Discharge Discharge Condition Stable Ambulatory Status Ambulatory Transportation Private Auto Medication Reconcilliation completed & No provided to patient/care provider Clinical Summary of Care Provided Yes Assessment/Plan Assessment/Plan (1) Abscess of left foot excluding toes: CODE(S): L02.612 - Cutaneous abscess of left foot (2) Delayed wound healing: CODE(S): T14.8XXD - Other injury of unspecified body region, subsequent encounter (3) Chronic ulcer of left foot with fat layer exposed: CODE(S): L97.522 - Non-pressure chronic ulcer of other part of left foot with fat layer exposed (4) HTN (hypertension): CODE(S): I10 - Essential (primary) hypertension QUALIFIERS: Hypertension type: primary hypertension Qualified Code(s): I10 - Essential (primary) hypertension (5) Diabetic ulcer of foot associated with diabetes mellitus due to underlying condition, with fat layer exposed: CODE(S): E08.621 - Diabetes mellitus due to underlying condition with foot ulcer; L97.502 - Non-pressure chronic ulcer of other part of unspecified foot with fat layer exposed QUALIFIERS: Diabetic foot ulcer location: midfoot Laterality: left Qualified Code(s): E08.621 - Diabetes mellitus due to underlying condition with foot ulcer; L97.422 - Non-pressure chronic ulcer of left heel and midfoot with fat layer exposed (6) Type 2 diabetes mellitus without complications: CODE(S): E11.9 - Type 2 diabetes mellitus without complications QUALIFIERS: Diabetes mellitus senior care insulin use: without local intermodal truck driver 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 There has been improvement since his last visit but callus formation is still present. I suspect noncompliance of offloading to be a major factor in his delayed healing. At home wound-care instructions: Wash ulcer daily with antibacterial soap and water. Will have him continue to use Aquacel Extra to ulcer and cover with gauze and roll gauze to secure daily. Keep dressing clean and dry. His work boot was modified on 07/03/23 and again 12/25/23 to try to offload pressure. He forgot to bring insole of his work boot to be modified again. Will have him use single layer tubigrip medium compression to left LE. He reports increased swelling in his ankle and leg when wearing the tubigrip compression so has stopped wearing. Discussed possibly using TCC for offloading in near future but he is unable to do so due to work. We also discussed that there may be a single vessel narrowing that could be preventing healing and talked about possible referral to Vascular surgery to do CTA runoff. Also discussed surgical procedure proposed by podiatry to shave exostosis of bone that is likely causing ulcer and he declines at this time. Off-loading: The patient was instructed to avoid pressure and friction on the affected areas. Reposition every 2 hours at minimum. Avoid prolonged standing and/or dangling of legs. When seated, feet should be elevated at chest level. Frequent ambulation is encouraged. Diet: Patient encouraged to increase protein intake while taking caution to avoid high carbohydrate and/or sugar intake. Labs/cultures/imaging: Wound culture positive 03/27/23 and is currently on Doxycycline. Wound culture showed Staph and Strep and he was treated with Keflex based on sensitivities and use topical Gentamicin for 3 weeks. Wound culture done 09/18/23 was positive for staph epidermidis. He has been on cephalexin and doxycycline. Wound culture was positive for Enterococcus and Linezolid completed. Wound culture was positive and he will continue Flagyl, Cipro and hold cefdinir and decrease doxycycline to once/day. His put him back on Keflex and doxycycline when his ulcer worsened over . Wound culture on 04/29/24 was positive for Staph epidermidis and he completed Linezolid and is back to taking chronic doxycyline and on Bactrim. XR of foot was negative. MRI negative for osteomyelitis and arterial testing negative for arterial insufficiency. Repeat XR of foot was negative. Follow-up: Return in 1 week for wound care follow up. Return sooner or report to the emergency room should symptoms worsen, or new symptoms arise. Note: [employer] speech recognition team assembly line machine operator software was used to create portions of this document. Sound-alike and misspelled words, as well as other team assembly line machine operator errors may be contained in the documentation.
[2024-07-08 09:43] VITALS: BP 125/61; PULSE 76; RESP 16; TEMP 35.9
--- NOTE | 2024-07-11 16:10 | NURSING ---
PHOTO 07/08/24 Left Plantar Foot
[2024-07-15 09:55] VITALS: BP 126/58; PULSE 76; RESP 18; TEMP 36.6
--- NOTE | 2024-07-15 13:07 | WC ---
PHOTO 07/15/24 Left Lateral Foot
--- NOTE | 2024-07-15 15:26 | PN.PCM_ITS ---
History of Present Illness Date of Service: 07/15/24 Chief Complaint: nonhealing wound left plantar foot History of Wound: Jose J is a 68 y/o gentleman that presents to the wound healing center for evaluation and treatment of a wound to his left plantar foot. He is a patient of Dr. Giordano. He has had a wound to this same area in February 2019 and was seen at [facility] [place] and treated there for 9 weeks with Aquacel and was placed in a wedge shoe to offload his foot. He was treated for this same wound for almost a year at this wound center and was healed in May 2020 and returned in July and was treated until September. He had undergone vascular testing at [facility] in 2018 and this has been repeated 09/2023 without significant arterial disease. 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 He and his did not want to do surgery. He has managed to do well over the last 2 years until the end of October when the area became painful again and began draining. He saw Dr. Giordano and was treated with doxycycline which helped and they had been applying Aquacel that they had from previous treatment but it has not improved. He was treated with a second course of doxycycline and then referred here for treatment. He is still working and walking on his foot in a steel toe boot 4 days a week for 10 hours. He had an offloading pad in his work boot previously but no longer has this in place. He denies claudication with walking. He has moderate to heavy drainage from the ulcer. He has not had any wound cultures taken. 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 He denies fever, chill, nausea, vomiting, redness or odor. Subjective Subjective Jose J returns today for follow up of an ulcer on the bottom of his left foot. His ulcer and drainage have improved since last visit. He continues to wear his modified work boot to alleviate pressure to the site of the ulcer of his left foot. He has been tolerating the Aquacel Extra to the ulcer. His wound culture was positive for Staph epidermidis and negative for anaerobic bacteria. He is on Bactrim DS and doxycycline. He denies fever, chills or odor. He had MRI on 10/02/23 which did not show any osteomyelitis of his foot. Arterial testing was also done and did not show any evidence of arterial insufficiency. HgbA1C was 6.5% on 10/09/23. Objective Data Objective Data Vital Signs: Vital Signs Temp Pulse Resp BP O2 Del Method 98 F 76 18 126/58 H Room Air 07/15/24 09:55 07/15/24 09:55 07/15/24 09:55 07/15/24 09:55 07/08/24 09:43 Oxygen Delivery Method Room Air Physical Exam Const alert, oriented x3 and no apparent distress General Appearance: cooperative and comfortable HEENT normocephalic and head/scalp atraumatic Resp normal respiratory effort Effort and Inspection: able to speak in complete sentences Auscultation: rales, rhonchi and diminished lung sounds Cardio regular rate and regular rhythm Skin Wounds: wounds noted Wound Narrative: as in clinical panel, mild callus formation surrounding ulcer, no cellulitis or odor Psych mental status grossly normal, thought process normal, cooperative and affect normal Debridement Note Debridement Note Wound debrided: left lateral plantar ulcer Laterality: Left Wound Grade/Stage: Luther grade 1 Type of Debridement: Excisional debridement Anesthesia Used: 5% Lidocaine Gel Depth: Down to and including healthy tissue and in the subcutaneous layer Percentage of wound debrided: 100 Instrument Used: #15 blade and Forceps Tissue Removed: Yellow slough, devitalized tissue Severity: Fat Layer Exposed Amount of bleeding with debridement: Mild Bleeding Controlled with: Pressure Patient tolerated procedure: Patient tolerated procedure well Post-Debridement Measurements and Additional Note: Post-Debridement Measurements/Treatment - Nurse 1 - General Ulcer Assessment Start: 07/01/24 10:01 Freq: Status: Active Protocol: KANIKA Activity Type Activity Date Activity User E-sign Co-sign Detail Recorded Client Recorded Date Recorded By Document 07/01/24 10:01 ML [id number] 07/01/24 10:07 ML Document 07/08/24 09:43 KW [id number] 07/08/24 09:48 KW Document 07/15/24 09:55 RB [id number] 07/15/24 09:57 RB 07/01/24 07/08/24 07/15/24 10:01 09:43 09:55 - Today's Visit Information Type of service Follow-up Visit Follow-up Visit Follow-up Visit (Physician/CONSUMER LENDER (Physician/CONSUMER LENDER (Physician/CONSUMER LENDER ) ) ) Arrival Mode Ambulatory Ambulatory Ambulatory Transfer Assistance None Patient Identification Verified (Name & Yes Yes Yes ) Patient Requires Transmission-Based No No Precautions Vital Signs Temperature (97.8 F-99.1 F) 97.8 F 96.7 F L 98 F Temperature Source Temporal Temporal Temporal Pulse Rate (60-100) 68 76 76 Pulse Location Monitor Monitor Monitor Respiratory Rate (12-18) 14 16 18 Respiratory rate source Observation Observation Observation Oxygen Delivery Method Room Air Blood Pressure (90/60-120/80) 127/61 H 125/61 H 126/58 H Blood Pressure Mean (mm Hg) 83 82 80 Source Monitor Monitor Monitor Position Semi-Fowlers Semi-Fowlers Blood Pressure Location Left Arm Left Arm History Since Last Visit- (Skip if this is Patient's initial visit) Have you changed medications since your No No No last visit? Any new allergies or adverse reactions No No No Had a fall/change in ADL's that may No No No increase risk of falls Signs or symptoms of abuse and/or No No neglect since last visit Have you been in the hospital since your No No No last visit? Has dressing in place as prescribed Yes Yes Yes Has compression in place as prescribed N/A Yes N/A Has offloadiing in place as prescribed N/A N/A N/A Experienced any changes in pain level or No No No management Left Footwear Regular Shoe Regular Shoe Right Footwear Regular Shoe Regular Shoe Pain Scale: 0-10 Numeric Is Patient Pain Free? Yes Yes Yes WC - Nurse 1 - General Ulcer Measurement Start: 07/01/24 10:01 Freq: Status: Active Protocol: Activity Type Activity Date Activity User E-sign Co-sign Detail Recorded Client Recorded Date Recorded By Document 07/01/24 10:01 ML [id number] 07/01/24 10:07 ML Document 07/08/24 09:43 KW [id number] 07/08/24 09:48 KW Document 07/15/24 09:55 RB [id number] 07/15/24 09:57 RB 07/01/24 07/08/24 07/15/24 10:01 09:43 09:55 Wound Center Nurse 1 #3 L Lateral Plantar Foot -Combined with other wound No -Current Size (cm) - Length 1 1 1 -Current Size (cm) - Width 0.5 0.9 0.6 -Current Size (cm) - Depth 0.2 0.2 0.1 -Total Square Cm 0.5 0.9 0.6 -Photo Taken Yes Yes -Tunneling No No -Undermining/Tunneling No No -Circular Undermining No No -Exudate Amt Medium Medium Medium -Exudate Type Serosanguineous Serosanguineous Serosanguineous -Wound Margin Distinct, Distinct, Thickened Outline Outline Attached Attached -Granulation Amt Medium (34-66%) Medium (34-66%) Medium (34-66%) -Granulation Quality [place] -Slough/Fibrin Yes Yes Yes -Necrosis Amt Medium (34-66%) Medium (34-66%) Medium (34-66%) -Necrotic Tissue Type Adherent Slough Adherent Slough Adherent Slough -Structure Exposed N/A N/A -Texture (Flory-wound Skin Appearance) Assessed Assessed,Callus Assessed,Callus -Moisture (Flory-wound Skin Appearance) Assessed Assessed Assessed -Color ([place]-wound Skin Appearance) Assessed Assessed Assessed -Temperature ([place]-wound Skin No Abnormality No Abnormality No Abnormality Appearance) (Pt Warm) (Pt Warm) (Pt Warm) -Tenderness on Palpation ([place]ory-wound No No No Skin Appearance) -Ulcer Cleansing Rinsed/ Wound Cleanser Wound Cleanser Irrigated with Saline -Foul Odor after Cleansing No No No -Anesthetic Used 5% Lidocaine 5% Lidocaine 5% Lidocaine Gel Gel Gel WC - Nurse 2 - General Ulcer CM Notes Start: 07/01/24 10:01 Freq: Status: Active Protocol: Activity Type Activity Date Activity User E-sign Co-sign Detail Recorded Client Recorded Date Recorded By Document 07/01/24 11:26 [facility] [id number] 07/01/24 11:37 [facility] Document 07/08/24 10:58 [id number] 07/08/24 11:09 Document 07/15/24 10:06 [id number] 07/15/24 10:14 07/01/24 07/08/24 07/15/24 11:26 10:58 10:06 Wound Center Nurse 2 #3 L Lateral Plantar Foot -Time 11:27 10:58 10:06 -Correct Patient Yes Yes Yes -Correct Side, Site, Position Yes Yes Yes -Correct Procedure Yes Yes Yes -Procedure Performed Yes Yes Yes -Type of Procedure Debridement Debridement Debridement -Clinical Debridement Subcutaneous Subcutaneous Subcutaneous -Tissue Removed Subcutaneous Subcutaneous Subcutaneous -Post Debridement (cm) - Length 1.0 1.1 1.0 -Post Debridement (cm) - Width 0.9 0.9 0.8 -Post Debridement (cm) - Depth 0.1 0.1 0.1 -Total Square (Post) (cm) 0.90 0.99 0.80 -Area of Debridement (cm) - Length 1.0 1.1 1.0 -Area of Debridement (cm) - Width 0.9 0.9 0.8 -Total Square (Area) (cm) 0.90 0.99 0.80 -Tunneling No No No -Undermining/Tunneling No No No -Circular Undermining No No No -Wound/Ulcer Outcome Not Healed Not Healed Not Healed -Ulcer Cleansing Rinsed/ Rinsed/ Rinsed/ Irrigated with Irrigated with Irrigated with Saline Saline Saline -Foul Odor after Cleansing No No No -Bioengineered Tissue No No No -Bleeding Controlled with Pressure Pressure Pressure -Treatment Response Procedure Procedure Procedure Tolerated Well Tolerated Well Tolerated Well -Debridement - Subq, 1st 20sq cm Yes Yes Yes Pain Scale: 0-10 Numeric Is Patient Pain Free? Yes Yes Yes - Nurse 3 - General Ulcer D/C NN Start: 07/01/24 10:01 Freq: Status: Active Protocol: Activity Type Activity Date Activity User E-sign Co-sign Detail Recorded Client Recorded Date Recorded By Document 07/01/24 11:56 RB [id number] 07/01/24 11:57 RB Document 07/08/24 11:25 KW [id number] 07/08/24 11:25 KW Document 07/15/24 10:25 KW [id number] 07/15/24 10:26 KW 07/01/24 07/08/24 07/15/24 11:56 11:25 10:25 Wound Care Center Nurse 3 #3 L Lateral Plantar Foot -Ulcer Cleansing Rinsed/ Irrigated with Saline -Primary Dressing Applied Aquacel Extra Aquacel Extra -Primary Dressing Covered/Secured with Dry Gauze,Dry Dry Gauze & Gauze & Roll Roll Gauze, Gauze,Secured Secured with with Tape Tape -Aquacel Extra 1 1 Treatment Response Procedure Tolerated Well Pain Scale: 0-10 Numeric Is Patient Pain Free? Yes Yes Yes WC - Visit Discharge Discharge Condition Stable Stable Stable Ambulatory Status Ambulatory Ambulatory Ambulatory Transportation Private Auto Private Auto Private Auto Medication Reconcilliation completed & No No No provided to patient/care provider Clinical Summary of Care Provided Yes Yes Yes #3 L Lateral Plantar Foot -Primary Dressing Applied Aquacel Extra -Primary Dressing Covered/Secured with Dry Gauze & Roll Gauze, Secured with Tape -Aquacel Extra 1 Assessment/Plan Assessment/Plan (1) Abscess of left foot excluding toes: CODE(S): L02.612 - Cutaneous abscess of left foot (2) Delayed wound healing: CODE(S): T14.8XXD - Other injury of unspecified body region, subsequent e ncounter (3) Chronic ulcer of left foot with fat layer exposed: CODE(S): L97.522 - Non-pressure chronic ulcer of other part of left foot with fat layer exposed (4) HTN (hypertension): CODE(S): I10 - Essential (primary) hypertension QUALIFIERS: Hypertension type: primary hypertension Qualified Code(s): I10 - Essential (primary) hypertension (5) Diabetic ulcer of foot associated with diabetes mellitus due to underlying condition, with fat layer exposed: CODE(S): E08.621 - Diabetes mellitus due to underlying condition with foot ulcer; L97.502 - Non-pressure chronic ulcer of other part of unspecified foot with fat layer exposed QUALIFIERS: Diabetic foot ulcer location: midfoot Laterality: left Qualified Code(s): E08.621 - Diabetes mellitus due to underlying condition with foot ulcer; L97.422 - Non-pressure chronic ulcer of left heel and midfoot with fat layer exposed (6) Type 2 diabetes mellitus without complications: CODE(S): E11.9 - Type 2 diabetes mellitus without complications QUALIFIERS: Diabetes mellitus alf insulin use: without alf 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 There has been improvement since his last visit but callus formation is still present. I suspect noncompliance of offloading to be a major factor in his delayed healing. At home wound-care instructions: Wash ulcer daily with antibacterial soap and water. Will have him continue to use Aquacel Extra to ulcer and cover with gauze and roll gauze to secure daily. Keep dressing clean and dry. His work boot was modified on 07/03/23 and again 12/25/23 to try to offload pressure. He forgot to bring insole of his work boot to be modified again. Will have him use single layer tubigrip medium compression to left LE. He reports increased swelling in his ankle and leg when wearing the tubigrip compression so has stopped wearing. Discussed possibly using TCC for offloading in near future but he is unable to do so due to work. We also discussed that there may be a single vessel narrowing that could be preventing healing and talked about possible referral to Vascular surgery to do CTA runoff. Also discussed surgical procedure proposed by podiatry to shave exostosis of bone that is likely causing ulcer and he declines at this time. Off-loading: The patient was instructed to avoid pressure and friction on the affected areas. Reposition every 2 hours at minimum. Avoid prolonged standing and/or dangling of legs. When seated, feet should be elevated at chest level. Frequent ambulation is encouraged. Diet: Patient encouraged to increase protein intake while taking caution to avoid high carbohydrate and/or sugar intake. Labs/cultures/imaging: Wound culture positive 03/27/23 and is currently on Doxycycline. Wound culture showed Staph and Strep and he was treated with Keflex based on sensitivities and use topical Gentamicin for 3 weeks. Wound culture done 09/18/23 was positive for staph epidermidis. He has been on cephalexin and doxycycline. Wound culture was positive for Enterococcus and Linezolid completed. Wound culture was positive and he will continue Flagyl, Cipro and hold cefdinir and decrease doxycycline to once/day. His put him back on Keflex and doxycycline when his ulcer worsened over . Wound culture on 04/29/24 was positive for Staph epidermidis and he completed Linezolid and is back to taking chronic doxycyline and on Bactrim. XR of foot was negative. MRI negative for osteomyelitis and arterial testing negative for arterial insufficiency. Repeat XR of foot was negative. Follow-up: Return in 1 week for wound care follow up. Return sooner or report to the emergency room should symptoms worsen, or new symptoms arise. Note: [employer] speech recognition alodize machine helper software was used to create portions of this document. Sound-alike and misspelled words, as well as other alodize machine helper errors may be contained in the documentation.
--- NOTE | 2024-07-15 21:22 | PCM.WC.PN ---
History of Present Illness Date of Service: 07/08/24 Chief Complaint: nonhealing wound left plantar foot History of Wound: Jose J is a 68 y/o gentleman that presents to the wound healing center for evaluation and treatment of a wound to his left plantar foot. He is a patient of Dr. Giordano. He has had a wound to this same area in February 2019 and was seen at [facility] [place] and treated there for 9 weeks with Aquacel and was placed in a wedge shoe to offload his foot. He was treated for this same wound for almost a year at this wound center and was healed in May 2020 and returned in July and was treated until September. He had undergone vascular testing at [facility] in 2018 and this has been repeated 09/2023 without significant arterial disease. 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 He and his did not want to do surgery. He has managed to do well over the last 2 years until the end of October when the area became painful again and began draining. He saw Dr. Giordano and was treated with doxycycline which helped and they had been applying Aquacel that they had from previous treatment but it has not improved. He was treated with a second course of doxycycline and then referred here for treatment. He is still working and walking on his foot in a steel toe boot 4 days a week for 10 hours. He had an offloading pad in his work boot previously but no longer has this in place. He denies claudication with walking. He has moderate to heavy drainage from the ulcer. He has not had any wound cultures taken. 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 He denies fever, chill, nausea, vomiting, redness or odor. Subjective Subjective Jose J returns today for follow up of an ulcer on the bottom of his left foot. His ulcer and drainage have improved since last visit. He continues to wear his modified work boot to alleviate pressure to the site of the ulcer of his left foot. He has been tolerating the Aquacel Extra to the ulcer. His wound culture was positive for Staph epidermidis and negative for anaerobic bacteria. He is on Bactrim DS and doxycycline. He denies fever, chills or odor. He had MRI on 10/02/23 which did not show any osteomyelitis of his foot. Arterial testing was also done and did not show any evidence of arterial insufficiency. HgbA1C was 6.5% on 10/09/23. Objective Data Objective Data Vital Signs: Vital Signs Temp Pulse Resp BP O2 Del Method 98 F 76 18 126/58 H Room Air 07/15/24 09:55 07/15/24 09:55 07/15/24 09:55 07/15/24 09:55 07/08/24 09:43 Oxygen Delivery Method Room Air Physical Exam Const alert, oriented x3 and no apparent distress General Appearance: cooperative and comfortable HEENT normocephalic and head/scalp atraumatic Resp normal respiratory effort Effort and Inspection: able to speak in complete sentences Auscultation: rales, rhonchi and diminished lung sounds Cardio regular rate and regular rhythm Skin Wounds: wounds noted Wound Narrative: as in clinical panel, mild callus formation surrounding ulcer, no cellulitis or odor Psych mental status grossly normal, thought process normal, cooperative and affect normal Debridement Note Debridement Note Wound debrided: left lateral plantar ulcer Laterality: Left Wound Grade/Stage: Luther grade 1 Type of Debridement: Excisional debridement Anesthesia Used: 5% Lidocaine Gel Depth: Down to and including healthy tissue and in the subcutaneous layer Percentage of wound debrided: 100 Instrument Used: #15 blade and Forceps Tissue Removed: Yellow slough, devitalized tissue Severity: Fat Layer Exposed Amount of bleeding with debridement: Mild Bleeding Controlled with: Pressure Patient tolerated procedure: Patient tolerated procedure well Post-Debridement Measurements and Additional Note: Post-Debridement Measurements/Treatment - Nurse 1 - General Ulcer Assessment Start: 07/01/24 10:01 Freq: Status: Active Protocol: KANIKA Activity Type Activity Date Activity User E-sign Co-sign Detail Recorded Client Recorded Date Recorded By Document 07/01/24 10:01 ML [id number] 07/01/24 10:07 ML Document 07/08/24 09:43 KW [id number] 07/08/24 09:48 KW Document 07/15/24 09:55 RB [id number] 07/15/24 09:57 RB 07/01/24 07/08/24 07/15/24 10:01 09:43 09:55 - Today's Visit Information Type of service Follow-up Visit Follow-up Visit Follow-up Visit (Physician/PHARMACEUTICAL ASSISTANT (Physician/PHARMACEUTICAL ASSISTANT (Physician/PHARMACEUTICAL ASSISTANT ) ) ) Arrival Mode Ambulatory Ambulatory Ambulatory Transfer Assistance None Patient Identification Verified (Name & Yes Yes Yes ) Patient Requires Transmission-Based No No Precautions Vital Signs Temperature (97.8 F-99.1 F) 97.8 F 96.7 F L 98 F Temperature Source Temporal Temporal Temporal Pulse Rate (60-100) 68 76 76 Pulse Location Monitor Monitor Monitor Respiratory Rate (12-18) 14 16 18 Respiratory rate source Observation Observation Observation Oxygen Delivery Method Room Air Blood Pressure (90/60-120/80) 127/61 H 125/61 H 126/58 H Blood Pressure Mean (mm Hg) 83 82 80 Source Monitor Monitor Monitor Position Semi-Fowlers Semi-Fowlers Blood Pressure Location Left Arm Left Arm History Since Last Visit- (Skip if this is Patient's initial visit) Have you changed medications since your No No No last visit? Any new allergies or adverse reactions No No No Had a fall/change in ADL's that may No No No increase risk of falls Signs or symptoms of abuse and/or No No neglect since last visit Have you been in the hospital since your No No No last visit? Has dressing in place as prescribed Yes Yes Yes Has compression in place as prescribed N/A Yes N/A Has offloadiing in place as prescribed N/A N/A N/A Experienced any changes in pain level or No No No management Left Footwear Regular Shoe Regular Shoe Right Footwear Regular Shoe Regular Shoe Pain Scale: 0-10 Numeric Is Patient Pain Free? Yes Yes Yes WC - Nurse 1 - General Ulcer Measurement Start: 07/01/24 10:01 Freq: Status: Active Protocol: Activity Type Activity Date Activity User E-sign Co-sign Detail Recorded Client Recorded Date Recorded By Document 07/01/24 10:01 ML [id number] 07/01/24 10:07 ML Document 07/08/24 09:43 KW [id number] 07/08/24 09:48 KW Document 07/15/24 09:55 RB [id number] 07/15/24 09:57 RB 07/01/24 07/08/24 07/15/24 10:01 09:43 09:55 Wound Center Nurse 1 #3 L Lateral Plantar Foot -Combined with other wound No -Current Size (cm) - Length 1 1 1 -Current Size (cm) - Width 0.5 0.9 0.6 -Current Size (cm) - Depth 0.2 0.2 0.1 -Total Square Cm 0.5 0.9 0.6 -Photo Taken Yes Yes -Tunneling No No -Undermining/Tunneling No No -Circular Undermining No No -Exudate Amt Medium Medium Medium -Exudate Type Serosanguineous Serosanguineous Serosanguineous -Wound Margin Distinct, Distinct, Thickened Outline Outline Attached Attached -Granulation Amt Medium (34-66%) Medium (34-66%) Medium (34-66%) -Granulation Quality [place] -Slough/Fibrin Yes Yes Yes -Necrosis Amt Medium (34-66%) Medium (34-66%) Medium (34-66%) -Necrotic Tissue Type Adherent Slough Adherent Slough Adherent Slough -Structure Exposed N/A N/A -Texture (Flory-wound Skin Appearance) Assessed Assessed,Callus Assessed,Callus -Moisture (Flory-wound Skin Appearance) Assessed Assessed Assessed -Color (Flory-wound Skin Appearance) Assessed Assessed Assessed -Temperature (Flory-wound Skin No Abnormality No Abnormality No Abnormality Appearance) (Pt Warm) (Pt Warm) (Pt Warm) -Tenderness on Palpation (Flory-wound No No No Skin Appearance) -Ulcer Cleansing Rinsed/ Wound Cleanser Wound Cleanser Irrigated with Saline -Foul Odor after Cleansing No No No -Anesthetic Used 5% Lidocaine 5% Lidocaine 5% Lidocaine Gel Gel Gel WC - Nurse 2 - General Ulcer CM Notes Start: 07/01/24 10:01 Freq: Status: Active Protocol: Activity Type Activity Date Activity User E-sign Co-sign Detail Recorded Client Recorded Date Recorded By Document 07/01/24 11:26 [facility] [id number] 07/01/24 11:37 [facility] Document 07/08/24 10:58 [id number] 07/08/24 11:09 Document 07/15/24 10:06 [id number] 07/15/24 10:14 07/01/24 07/08/24 07/15/24 11:26 10:58 10:06 Wound Center Nurse 2 #3 L Lateral Plantar Foot -Time 11:27 10:58 10:06 -Correct Patient Yes Yes Yes -Correct Side, Site, Position Yes Yes Yes -Correct Procedure Yes Yes Yes -Procedure Performed Yes Yes Yes -Type of Procedure Debridement Debridement Debridement -Clinical Debridement Subcutaneous Subcutaneous Subcutaneous -Tissue Removed Subcutaneous Subcutaneous Subcutaneous -Post Debridement (cm) - Length 1.0 1.1 1.0 -Post Debridement (cm) - Width 0.9 0.9 0.8 -Post Debridement (cm) - Depth 0.1 0.1 0.1 -Total Square (Post) (cm) 0.90 0.99 0.80 -Area of Debridement (cm) - Length 1.0 1.1 1.0 -Area of Debridement (cm) - Width 0.9 0.9 0.8 -Total Square (Area) (cm) 0.90 0.99 0.80 -Tunneling No No No -Undermining/Tunneling No No No -Circular Undermining No No No -Wound/Ulcer Outcome Not Healed Not Healed Not Healed -Ulcer Cleansing Rinsed/ Rinsed/ Rinsed/ Irrigated with Irrigated with Irrigated with Saline Saline Saline -Foul Odor after Cleansing No No No -Bioengineered Tissue No No No -Bleeding Controlled with Pressure Pressure Pressure -Treatment Response Procedure Procedure Procedure Tolerated Well Tolerated Well Tolerated Well -Debridement - Subq, 1st 20sq cm Yes Yes Yes Pain Scale: 0-10 Numeric Is Patient Pain Free? Yes Yes Yes - Nurse 3 - General Ulcer D/C NN Start: 07/01/24 10:01 Freq: Status: Active Protocol: Activity Type Activity Date Activity User E-sign Co-sign Detail Recorded Client Recorded Date Recorded By Document 07/01/24 11:56 RB [id number] 07/01/24 11:57 RB Document 07/08/24 11:25 KW [id number] 07/08/24 11:25 KW Document 07/15/24 10:25 KW [id number] 07/15/24 10:26 KW 07/01/24 07/08/24 07/15/24 11:56 11:25 10:25 Wound Care Center Nurse 3 #3 L Lateral Plantar Foot -Ulcer Cleansing Rinsed/ Irrigated with Saline -Primary Dressing Applied Aquacel Extra Aquacel Extra -Primary Dressing Covered/Secured with Dry Gauze,Dry Dry Gauze & Gauze & Roll Roll Gauze, Gauze,Secured Secured with with Tape Tape -Aquacel Extra 1 1 Treatment Response Procedure Tolerated Well Pain Scale: 0-10 Numeric Is Patient Pain Free? Yes Yes Yes WC - Visit Discharge Discharge Condition Stable Stable Stable Ambulatory Status Ambulatory Ambulatory Ambulatory Transportation Private Auto Private Auto Private Auto Medication Reconcilliation completed & No No No provided to patient/care provider Clinical Summary of Care Provided Yes Yes Yes #3 L Lateral Plantar Foot -Primary Dressing Applied Aquacel Extra -Primary Dressing Covered/Secured with Dry Gauze & Roll Gauze, Secured with Tape -Aquacel Extra 1 Assessment/Plan Assessment/Plan (1) Abscess of left foot excluding toes: CODE(S): L02.612 - Cutaneous abscess of left foot (2) Delayed wound healing: CODE(S): T14.8XXD - Other injury of unspecified body region, subsequent encounter (3) Chronic ulcer of left foot with fat layer exposed: CODE(S): L97.522 - Non-pressure chronic ulcer of other part of left foot with fat layer exposed (4) HTN (hypertension): CODE(S): I10 - Essential (primary) hypertension QUALIFIERS: Hypertension type: primary hypertension Qualified Code(s): I10 - Essential (primary) hypertension (5) Diabetic ulcer of foot associated with diabetes mellitus due to underlying condition, with fat layer exposed: CODE(S): E08.621 - Diabetes mellitus due to underlying condition with foot ulcer; L97.502 - Non-pressure chronic ulcer of other part of unspecified foot with fat layer exposed QUALIFIERS: Diabetic foot ulcer location: midfoot Laterality: left Qualified Code(s): E08.621 - Diabetes mellitus due to underlying condition with foot ulcer; L97.422 - Non-pressure chronic ulcer of left heel and midfoot with fat layer exposed (6) Type 2 diabetes mellitus without complications: CODE(S): E11.9 - Type 2 diabetes mellitus without complications QUALIFIERS: Diabetes mellitus long term care administrator insulin use: without chcf 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 There has been improvement since his last visit but callus formation is still present. I suspect noncompliance of offloading to be a major factor in his delayed healing. At home wound-care instructions: Wash ulcer daily with antibacterial soap and water. Will have him continue to use Aquacel Extra to ulcer and cover with gauze and roll gauze to secure daily. Keep dressing clean and dry. His work boot was modified on 2/9/24 and again 12/25/23 to try to offload pressure. He forgot to bring insole of his work boot to be modified again. Will have him use single layer tubigrip medium compression to left LE. He reports increased swelling in his ankle and leg when wearing the tubigrip compression so has stopped wearing. Discussed possibly using TCC for offloading in near future but he is unable to do so due to work. We also discussed that there may be a single vessel narrowing that could be preventing healing and talked about possible referral to Vascular surgery to do CTA runoff. Also discussed surgical procedure proposed by podiatry to shave exostosis of bone that is likely causing ulcer and he declines at this time. Off-loading: The patient was instructed to avoid pressure and friction on the affected areas. Reposition every 2 hours at minimum. Avoid prolonged standing and/or dangling of legs. When seated, feet should be elevated at chest level. Frequent ambulation is encouraged. Diet: Patient encouraged to increase protein intake while taking caution to avoid high carbohydrate and/or sugar intake. Labs/cultures/imaging: Wound culture positive 03/27/23 and is currently on Doxycycline. Wound culture showed Staph and Strep and he was treated with Keflex based on sensitivities and use topical Gentamicin for 3 weeks. Wound culture done 09/18/23 was positive for staph epidermidis. He has been on cephalexin and doxycycline. Wound culture was positive for Enterococcus and Linezolid completed. Wound culture was positive and he will continue Flagyl, Cipro and hold cefdinir and decrease doxycycline to once/day. His put him back on Keflex and doxycycline when his ulcer worsened over . Wound culture on 04/29/24 was positive for Staph epidermidis and he completed Linezolid and is back to taking chronic doxycyline and on Bactrim. XR of foot was negative. MRI negative for osteomyelitis and arterial testing negative for arterial insufficiency. Repeat XR of foot was negative. Follow-up: Return in 1 week for wound care follow up. Return sooner or report to the emergency room should symptoms worsen, or new symptoms arise. Note: [employer] speech recognition parts puller software was used to create portions of this document. Sound-alike and misspelled words, as well as other parts puller errors may be contained in the documentation.
[2024-07-22 10:38] VITALS: BP 128/61; PULSE 82; RESP 18; TEMP 36.4
--- NOTE | 2024-07-22 11:55 | PN.PCM_ITS ---
History of Present Illness Date of Service: 07/22/24 Chief Complaint: nonhealing wound left plantar foot History of Wound: Jose J is a 68 y/o gentleman that presents to the wound healing center for evaluation and treatment of a wound to his left plantar foot. He is a patient of Dr. Giordano. He has had a wound to this same area in February 2019 and was seen at [facility] and treated there for 9 weeks with Aquacel and was placed in a wedge shoe to offload his foot. He was treated for this same wound for almost a year at this wound center and was healed in May 2020 and returned in July and was treated until September. He had undergone vascular testing at [facility] in 2018 and this has been repeated 09/2023 without significant arterial disease. 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 He and his did not want to do surgery. He has managed to do well over the last 2 years until the end of October when the area became painful again and began draining. He saw Dr. Giordano and was treated with doxycycline which helped and they had been applying Aquacel that they had from previous treatment but it has not improved. He was treated with a second course of doxycycline and then referred here for treatment. He is still working and walking on his foot in a steel toe boot 4 days a week for 10 hours. He had an offloading pad in his work boot previously but no longer has this in place. He denies claudication with walking. He has moderate to heavy drainage from the ulcer. He has not had any wound cultures taken. 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 He denies fever, chill, nausea, vomiting, redness or odor. Objective Data Objective Data Vital Signs: Vital Signs Temp Pulse Resp BP O2 Del Method 97.6 F L 82 18 128/61 H Room Air 07/22/24 10:38 07/22/24 10:38 07/22/24 10:38 07/22/24 10:38 07/22/24 10:38 Oxygen Delivery Method Room Air Physical Exam Const alert, oriented x3 and no apparent distress General Appearance: cooperative and comfortable HEENT normocephalic and head/scalp atraumatic Resp normal respiratory effort Effort and Inspection: able to speak in complete sentences Auscultation: rales, rhonchi and diminished lung sounds Cardio regular rate and regular rhythm Skin Wounds: wounds noted Wound Narrative: as in clinical panel, mild callus formation surrounding ulcer, no cellulitis or odor Psych mental status grossly normal, thought process normal, cooperative and affect normal Debridement Note Debridement Note Wound debrided: left lateral plantar ulcer Laterality: Left Wound Grade/Stage: Luther grade 1 Type of Debridement: Excisional debridement Anesthesia Used: 5% Lidocaine Gel Depth: Down to and including healthy tissue and in the subcutaneous layer Percentage of wound debrided: 100 Instrument Used: #15 blade and Forceps Tissue Removed: Yellow slough, devitalized tissue Severity: Fat Layer Exposed Amount of bleeding with debridement: Mild Bleeding Controlled with: Pressure Patient tolerated procedure: Patient tolerated procedure well Post-Debridement Measurements and Additional Note: Post-Debridement Measurements/Treatment - Nurse 1 - General Ulcer Assessment Start: 07/01/24 10:01 Freq: Status: Active Protocol: KANIKA Activity Type Activity Date Activity User E-sign Co-sign Detail Recorded Client Recorded Date Recorded By Document 07/01/24 10:01 ML [id number] 07/01/24 10:07 ML Document 07/08/24 09:43 KW [id number] 07/08/24 09:48 KW Document 07/15/24 09:55 RB [id number] 07/15/24 09:57 RB Document 07/22/24 10:38 KW [id number] 07/22/24 10:41 KW 07/01/24 07/08/24 07/15/24 10:01 09:43 09:55 - Today's Visit Information Type of service Follow-up Visit Follow-up Visit Follow-up Visit (Physician/SUPERVISOR GRAPHITE (Physician/SUPERVISOR GRAPHITE (Physician/SUPERVISOR GRAPHITE ) ) ) Arrival Mode Ambulatory Ambulatory Ambulatory Transfer Assistance None Accompanied by Patient Identification Verified (Name & Yes Yes Yes ) Patient Requires Transmission-Based No No Precautions Vital Signs Temperature (97.8 F-99.1 F) 97.8 F 96.7 F L 98 F Temperature Source Temporal Temporal Temporal Pulse Rate (60-100) 68 76 76 Pulse Location Monitor Monitor Monitor Respiratory Rate (12-18) 14 16 18 Respiratory rate source Observation Observation Observation Oxygen Delivery Method Room Air Blood Pressure (90/60-120/80) 127/61 H 125/61 H 126/58 H Blood Pressure Mean (mm Hg) 83 82 80 Source Monitor Monitor Monitor Position Semi-Fowlers Semi-Fowlers Blood Pressure Location Left Arm Left Arm History Since Last Visit- (Skip if this is Patient's initial visit) Have you changed medications since your No No No last visit? Any new allergies or adverse reactions No No No Had a fall/change in ADL's that may No No No increase risk of falls Signs or symptoms of abuse and/or No No neglect since last visit Have you been in the hospital since your No No No last visit? Has dressing in place as prescribed Yes Yes Yes Has compression in place as prescribed N/A Yes N/A Has offloadiing in place as prescribed N/A N/A N/A Experienced any changes in pain level or No No No management Left Footwear Regular Shoe Regular Shoe Right Footwear Regular Shoe Regular Shoe Pain Scale: 0-10 Numeric Is Patient Pain Free? Yes Yes Yes 07/22/24 10:38 WC - Today's Visit Information Type of service Follow-up Visit (Physician/SUPERVISOR GRAPHITE ) Arrival Mode Ambulatory Transfer Assistance Accompanied by Patient Identification Verified (Name & Yes ) Patient Requires Transmission-Based Precautions Vital Signs Temperature (97.8 F-99.1 F) 97.6 F L Temperature Source Temporal Pulse Rate (60-100) 82 Pulse Location Monitor Respiratory Rate (12-18) 18 Respiratory rate source Observation Oxygen Delivery Method Room Air Blood Pressure (90/60-120/80) 128/61 H Blood Pressure Mean (mm Hg) 83 Source Monitor Position Semi-Fowlers Blood Pressure Location Left Arm History Since Last Visit- (Skip if this is Patient's initial visit) Have you changed medications since your No last visit? Any new allergies or adverse reactions No Had a fall/change in ADL's that may No increase risk of falls Signs or symptoms of abuse and/or No neglect since last visit Have you been in the hospital since your No last visit? Has dressing in place as prescribed Yes Has compression in place as prescribed N/A Has offloadiing in place as prescribed N/A Experienced any changes in pain level or No management Left Footwear Regular Shoe Right Footwear Regular Shoe Pain Scale: 0-10 Numeric Is Patient Pain Free? Yes - Nurse 1 - General Ulcer Measurement Start: 07/01/24 10:01 Freq: Status: Active Protocol: Activity Type Activity Date Activity User E-sign Co-sign Detail Recorded Client Recorded Date Recorded By Document 07/01/24 10:01 ML [id number] 07/01/24 10:07 ML Document 07/08/24 09:43 KW [id number] 07/08/24 09:48 KW Document 07/15/24 09:55 RB [id number] 07/15/24 09:57 RB Document 07/22/24 10:38 KW [id number] 07/22/24 10:41 KW 07/01/24 07/08/24 07/15/24 10:01 09:43 09:55 Wound Center Nurse 1 #3 L Lateral Plantar Foot -Combined with other wound No -Current Size (cm) - Length 1 1 1 -Current Size (cm) - Width 0.5 0.9 0.6 -Current Size (cm) - Depth 0.2 0.2 0.1 -Total Square Cm 0.5 0.9 0.6 -Photo Taken Yes Yes -Tunneling No No -Undermining/Tunneling No No -Circular Undermining No No -Exudate Amt Medium Medium Medium -Exudate Type Serosanguineous Serosanguineous Serosanguineous -Wound Margin Distinct, Distinct, Thickened Outline Outline Attached Attached -Granulation Amt Medium (34-66%) Medium (34-66%) Medium (34-66%) -Granulation Quality Knowles Knowles -Slough/Fibrin Yes Yes Yes -Necrosis Amt Medium (34-66%) Medium (34-66%) Medium (34-66%) -Necrotic Tissue Type Adherent Slough Adherent Slough Adherent Slough -Structure Exposed N/A N/A -Texture (Flory-wound Skin Appearance) Assessed Assessed,Callus Assessed,Callus -Moisture (Flory-wound Skin Appearance) Assessed Assessed Assessed -Color (Flory-wound Skin Appearance) Assessed Assessed Assessed -Temperature (Flory-wound Skin No Abnormality No Abnormality No Abnormality Appearance) (Pt Warm) (Pt Warm) (Pt Warm) -Tenderness on Palpation (Flory-wound No No No Skin Appearance) -Ulcer Cleansing Rinsed/ Wound Cleanser Wound Cleanser Irrigated with Saline -Foul Odor after Cleansing No No No -Anesthetic Used 5% Lidocaine 5% Lidocaine 5% Lidocaine Gel Gel Gel 07/22/24 10:38 Wound Center Nurse 1 #3 L Lateral Plantar Foot -Combined with other wound -Current Size (cm) - Length 1 -Current Size (cm) - Width 0.8 -Current Size (cm) - Depth 0.1 -Total Square Cm 0.8 -Photo Taken -Tunneling -Undermining/Tunneling -Circular Undermining -Exudate Amt Small -Exudate Type Serosanguineous -Wound Margin Distinct, Outline Attached -Granulation Amt Large (67-100%) -Granulation Quality Red -Slough/Fibrin -Necrosis Amt -Necrotic Tissue Type -Structure Exposed -Texture (Flory-wound Skin Appearance) Callus -Moisture (Flory-wound Skin Appearance) Assessed -Color (Flory-wound Skin Appearance) Assessed -Temperature (Flory-wound Skin No Abnormality Appearance) (Pt Warm) -Tenderness on Palpation (Flory-wound No Skin Appearance) -Ulcer Cleansing Rinsed/ Irrigated with Saline -Foul Odor after Cleansing No -Anesthetic Used 5% Lidocaine Gel WC - Nurse 2 - General Ulcer CM Notes Start: 07/01/24 10:01 Freq: Status: Active Protocol: Activity Type Activity Date Activity User E-sign Co-sign Detail Recorded Client Recorded Date Recorded By Document 07/01/24 11:26 [facility] [id number] 07/01/24 11:37 [facility] Document 07/08/24 10:58 [id number] 07/08/24 11:09 Document 07/15/24 10:06 [id number] 07/15/24 10:14 Document 07/22/24 11:14 [id number] 07/22/24 11:15 07/01/24 07/08/24 07/15/24 11:26 10:58 10:06 Wound Center Nurse 2 #3 L Lateral Plantar Foot -Time 11:27 10:58 10:06 -Correct Patient Yes Yes Yes -Correct Side, Site, Position Yes Yes Yes -Correct Procedure Yes Yes Yes -Procedure Performed Yes Yes Yes -Type of Procedure Debridement Debridement Debridement -Clinical Debridement Subcutaneous Subcutaneous Subcutaneous -Tissue Removed Subcutaneous Subcutaneous Subcutaneous -Post Debridement (cm) - Length 1.0 1.1 1.0 -Post Debridement (cm) - Width 0.9 0.9 0.8 -Post Debridement (cm) - Depth 0.1 0.1 0.1 -Total Square (Post) (cm) 0.90 0.99 0.80 -Area of Debridement (cm) - Length 1.0 1.1 1.0 -Area of Debridement (cm) - Width 0.9 0.9 0.8 -Total Square (Area) (cm) 0.90 0.99 0.80 -Tunneling No No No -Undermining/Tunneling No No No -Circular Undermining No No No -Wound/Ulcer Outcome Not Healed Not Healed Not Healed -Ulcer Cleansing Rinsed/ Rinsed/ Rinsed/ Irrigated with Irrigated with Irrigated with Saline Saline Saline -Foul Odor after Cleansing No No No -Bioengineered Tissue No No No -Bleeding Controlled with Pressure Pressure Pressure -Treatment Response Procedure Procedure Procedure Tolerated Well Tolerated Well Tolerated Well -Debridement - Subq, 1st 20sq cm Yes Yes Yes Pain Scale: 0-10 Numeric Is Patient Pain Free? Yes Yes Yes 07/22/24 11:14 Wound Center Nurse 2 #3 L Lateral Plantar Foot -Time 11:14 -Correct Patient Yes -Correct Side, Site, Position Yes -Correct Procedure Yes -Procedure Performed Yes -Type of Procedure Debridement -Clinical Debridement Subcutaneous -Tissue Removed Subcutaneous -Post Debridement (cm) - Length -Post Debridement (cm) - Width -Post Debridement (cm) - Depth -Total Square (Post) (cm) -Area of Debridement (cm) - Length -Area of Debridement (cm) - Width -Total Square (Area) (cm) -Tunneling No -Undermining/Tunneling No -Circular Undermining No -Wound/Ulcer Outcome Not Healed -Ulcer Cleansing Rinsed/ Irrigated with Saline -Foul Odor after Cleansing No -Bioengineered Tissue No -Bleeding Controlled with Pressure -Treatment Response Procedure Tolerated Well -Debridement - Subq, 1st 20sq cm Yes Pain Scale: 0-10 Numeric Is Patient Pain Free? Yes - Nurse 3 - General Ulcer D/C NN Start: 07/01/24 10:01 Freq: Status: Active Protocol: Activity Type Activity Date Activity User E-sign Co-sign Detail Recorded Client Recorded Date Recorded By Document 07/01/24 11:56 RB [id number] 07/01/24 11:57 RB Document 07/08/24 11:25 KW [id number] 07/08/24 11:25 KW Document 07/15/24 10:25 KW [id number] 07/15/24 10:26 KW Document 07/22/24 11:44 [id number] 07/22/24 11:44 07/01/24 07/08/24 07/15/24 11:56 11:25 10:25 Wound Care Center Nurse 3 #3 L Lateral Plantar Foot -Ulcer Cleansing Rinsed/ Irrigated with Saline -Primary Dressing Applied Aquacel Extra Aquacel Extra -Primary Dressing Covered/Secured with Dry Gauze,Dry Dry Gauze & Gauze & Roll Roll Gauze, Gauze,Secured Secured with with Tape Tape -Aquacel Extra 1 1 Treatment Response Procedure Tolerated Well Pain Scale: 0-10 Numeric Is Patient Pain Free? Yes Yes Yes WC - Visit Discharge Discharge Condition Stable Stable Stable Ambulatory Status Ambulatory Ambulatory Ambulatory Transportation Private Auto Private Auto Private Auto Medication Reconcilliation completed & No No No provided to patient/care provider Clinical Summary of Care Provided Yes Yes Yes #3 L Lateral Plantar Foot -Ulcer Cleansing -Foul Odor after Cleansing -Primary Dressing Covered/Secured with -Foam Supply Charges Aquacel Extra -Primary Dressing Covered/Secured with Dry Gauze & Roll Gauze, Secured with Tape -Aquacel Extra -Aquacel Extra 1 07/22/24 11:44 Wound Care Center Nurse 3 #3 L Lateral Plantar Foot -Ulcer Cleansing -Primary Dressing Applied -Primary Dressing Covered/Secured with -Aquacel Extra Treatment Response Pain Scale: 0-10 Numeric Is Patient Pain Free? Yes WC - Visit Discharge Discharge Condition Stable Ambulatory Status Ambulatory Transportation Private Auto Medication Reconcilliation completed & provided to patient/care provider Clinical Summary of Care Provided #3 L Lateral Plantar Foot -Ulcer Cleansing Not Cleansed -Foul Odor after Cleansing No -Primary Dressing Covered/Secured with Dry Gauze,Dry Gauze & Roll Gauze,Secured with Tape -Foam Supply Charges -Primary Dressing Covered/Secured with -Aquacel Extra 1 -Aquacel Extra Assessment/Plan Assessment/Plan (1) Abscess of left foot excluding toes: CODE(S): L02.612 - Cutaneous abscess of left foot (2) Delayed wound healing: CODE(S): T14.8XXD - Other injury of unspecified body region, subsequent encounter (3) Chronic ulcer of left foot with fat layer exposed: CODE(S): L97.522 - Non-pressure chronic ulcer of other part of left foot with fat layer exposed (4) HTN (hypertension): CODE(S): I10 - Essential (primary) hypertension QUALIFIERS: Hypertension type: primary hypertension Qualified Code(s): I10 - Essential (primary) hypertension (5) Diabetic ulcer of foot associated with diabetes mellitus due to underlying condition, with fat layer exposed: CODE(S): E08.621 - Diabetes mellitus due to underlying condition with foot ulcer; L97.502 - Non-pressure chronic ulcer of other part of unspecified foot with fat layer exposed QUALIFIERS: Diabetic foot ulcer location: midfoot Laterality: left Qualified Code(s): E08.621 - Diabetes mellitus due to underlying condition with foot ulcer; L97.422 - Non-pressure chronic ulcer of left heel and midfoot with fat layer exposed (6) Type 2 diabetes mellitus without complications: CODE(S): E11.9 - Type 2 diabetes mellitus without complications QUALIFIERS: 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 There has been improvement since his last visit but callus formation is still present. I suspect noncompliance of offloading to be a major factor in his delayed healing. At home wound-care instructions: Wash ulcer daily with antibacterial soap and water. Will have him continue to use Aquacel Extra to ulcer and cover with gauze and roll gauze to secure daily. Keep dressing clean and dry. His work boot was modified on 07/03/23 and again 12/25/23 to try to offload pressure. He forgot to bring insole of his work boot to be modified again. Will have him use single layer tubigrip medium compression to left LE. He reports increased swelling in his ankle and leg when wearing the tubigrip compression so has stopped wearing. Discussed possibly using TCC for offloading in near future but he is unable to do so due to work. We also discussed that there may be a single vessel narrowing that could be preventing healing and talked about possible referral to Vascular surgery to do CTA runoff. Also discussed surgical procedure proposed by podiatry to shave exostosis of bone that is likely causing ulcer and he declines at this time. Off-loading: The patient was instructed to avoid pressure and friction on the affected areas. Reposition every 2 hours at minimum. Avoid prolonged standing and/or dangling of legs. When seated, feet should be elevated at chest level. Frequent ambulation is encouraged. Diet: Patient encouraged to increase protein intake while taking caution to avoid high carbohydrate and/or sugar intake. Labs/cultures/imaging: Wound culture positive 03/27/23 and is currently on Doxycycline. Wound culture showed Staph and Strep and he was treated with Keflex based on sensitivities and use topical Gentamicin for 3 weeks. Wound culture done 09/18/23 was positive for staph epidermidis. He has been on cephalexin and doxycycline. Wound culture was positive for Enterococcus and Linezolid completed. Wound culture was positive and he will continue Flagyl, Cipro and hol d cefdinir and decrease doxycycline to once/day. His put him back on Keflex and doxycycline when his ulcer worsened over . Wound culture on 04/29/24 was positive for Staph epidermidis and he completed Linezolid and is back to taking chronic doxycyline and on Bactrim. XR of foot was negative. MRI negative for osteomyelitis and arterial testing negative for arterial insufficiency. Repeat XR of foot was negative. Follow-up: Return in 1 week for wound care follow up. Return sooner or report to the emergency room should symptoms worsen, or new symptoms arise. Note: [employer] speech recognition counseling case manager software was used to create portions of this document. Sound-alike and misspelled words, as well as other counseling case manager errors may be contained in the documentation.
--- NOTE | 2024-07-22 14:55 | PCM.WC.PN ---
History of Present Illness Date of Service: 07/22/24 Chief Complaint: nonhealing wound left plantar foot History of Wound: Jose J is a 69 y/o gentleman that presents to the wound healing center for evaluation and treatment of a wound to his left plantar foot. He is a patient of Dr. Giordano. He has had a wound to this same area in February 2019 and was seen at [facility] [place] and treated there for 9 weeks with Aquacel and was placed in a wedge shoe to offload his foot. He was treated for this same wound for almost a year at this wound center and was healed in May 2020 and returned in July and was treated until September. He had undergone vascular testing at [facility] in 2018 and this has been repeated 09/2023 without significant arterial disease. 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 He and his did not want to do surgery. He has managed to do well over the last 2 years until the end of October when the area became painful again and began draining. He saw Dr. Giordano and was treated with doxycycline which helped and they had been applying Aquacel that they had from previous treatment but it has not improved. He was treated with a second course of doxycycline and then referred here for treatment. He is still working and walking on his foot in a steel toe boot 4 days a week for 10 hours. He had an offloading pad in his work boot previously but no longer has this in place. He denies claudication with walking. He has moderate to heavy drainage from the ulcer. He has not had any wound cultures taken. 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 He denies fever, chill, nausea, vomiting, redness or odor. Subjective Subjective Jose J returns today for follow up of an ulcer on the bottom of his left foot. His ulcer and drainage have improved since last visit. He continues to wear his modified work boot to alleviate pressure to the site of the ulcer of his left foot. He has been tolerating the Aquacel Extra to the ulcer. His wound culture was positive for Staph epidermidis and negative for anaerobic bacteria. He is on Bactrim DS and doxycycline. He denies fever, chills or odor. He had MRI on 10/02/23 which did not show any osteomyelitis of his foot. Arterial testing was also done and did not show any evidence of arterial insufficiency. HgbA1C was 6.5% on 10/09/23. Objective Data Objective Data Vital Signs: Vital Signs Temp Pulse Resp BP O2 Del Method 97.6 F L 82 18 128/61 H Room Air 07/22/24 10:38 07/22/24 10:38 07/22/24 10:38 07/22/24 10:38 07/22/24 10:38 Oxygen Delivery Method Room Air Physical Exam Const alert, oriented x3 and no apparent distress General Appearance: cooperative and comfortable HEENT normocephalic and head/scalp atraumatic Resp normal respiratory effort Effort and Inspection: able to speak in complete sentences Auscultation: rales, rhonchi and diminished lung sounds Cardio regular rate and regular rhythm Skin Wounds: wounds noted Wound Narrative: as in clinical panel, mild callus formation surrounding ulcer, no cellulitis or odor Psych mental status grossly normal, thought process normal, cooperative and affect normal Debridement Note Debridement Note Wound debrided: left lateral plantar ulcer Laterality: Left Wound Grade/Stage: Luther grade 1 Type of Debridement: Excisional debridement Anesthesia Used: 5% Lidocaine Gel Depth: Down to and including healthy tissue and in the subcutaneous layer Percentage of wound debrided: 100 Instrument Used: #15 blade and Forceps Tissue Removed: Yellow slough, devitalized tissue Severity: Fat Layer Exposed Amount of bleeding with debridement: Mild Bleeding Controlled with: Pressure Patient tolerated procedure: Patient tolerated procedure well Post-Debridement Measurements and Additional Note: Post-Debridement Measurements/Treatment WC - Nurse 1 - General Ulcer Assessment Start: 07/01/24 10:01 Freq: Status: Active Protocol: QUOC.AMADA Activity Type Activity Date Activity User E-sign Co-sign Detail Recorded Client Recorded Date Recorded By Document 07/01/24 10:01 ML [id number] 07/01/24 10:07 ML Document 07/08/24 09:43 KW [id number] 07/08/24 09:48 KW Document 07/15/24 09:55 RB [id number] 07/15/24 09:57 RB Document 07/22/24 10:38 KW [id number] 07/22/24 10:41 KW 07/01/24 07/08/24 07/15/24 10:01 09:43 09:55 [facility]'s Visit Information Type of service Follow-up Visit Follow-up Visit Follow-up Visit (Physician/SHIPPER (Physician/SHIPPER (Physician/SHIPPER ) ) ) Arrival Mode Ambulatory Ambulatory Ambulatory Transfer Assistance None Accompanied by Patient Identification Verified (Name & Yes Yes Yes ) Patient Requires Transmission-Based No No Precautions Vital Signs Temperature (97.8 F-99.1 F) 97.8 F 96.7 F L 98 F Temperature Source Temporal Temporal Temporal Pulse Rate (60-100) 68 76 76 Pulse Location Monitor Monitor Monitor Respiratory Rate (12-18) 14 16 18 Respiratory rate source Observation Observation Observation Oxygen Delivery Method Room Air Blood Pressure (90/60-120/80) 127/61 H 125/61 H 126/58 H Blood Pressure Mean (mm Hg) 83 82 80 Source Monitor Monitor Monitor Position Semi-Fowlers Semi-Fowlers Blood Pressure Location Left Arm Left Arm History Since Last Visit- (Skip if this is Patient's initial visit) Have you changed medications since your No No No last visit? Any new allergies or adverse reactions No No No Had a fall/change in ADL's that may No No No increase risk of falls Signs or symptoms of abuse and/or No No neglect since last visit Have you been in the hospital since your No No No last visit? Has dressing in place as prescribed Yes Yes Yes Has compression in place as prescribed N/A Yes N/A Has offloadiing in place as prescribed N/A N/A N/A Experienced any changes in pain level or No No No management Left Footwear Regular Shoe Regular Shoe Right Footwear Regular Shoe Regular Shoe Pain Scale: 0-10 Numeric Is Patient Pain Free? Yes Yes Yes 07/22/24 10:38 [facility]'s Visit Information Type of service Follow-up Visit (Physician/SHIPPER ) Arrival Mode Ambulatory Transfer Assistance Accompanied by Patient Identification Verified (Name & Yes ) Patient Requires Transmission-Based Precautions Vital Signs Temperature (97.8 F-99.1 F) 97.6 F L Temperature Source Temporal Pulse Rate (60-100) 82 Pulse Location Monitor Respiratory Rate (12-18) 18 Respiratory rate source Observation Oxygen Delivery Method Room Air Blood Pressure (90/60-120/80) 128/61 H Blood Pressure Mean (mm Hg) 83 Source Monitor Position Semi-Fowlers Blood Pressure Location Left Arm History Since Last Visit- (Skip if this is Patient's initial visit) Have you changed medications since your No last visit? Any new allergies or adverse reactions No Had a fall/change in ADL's that may No increase risk of falls Signs or symptoms of abuse and/or No neglect since last visit Have you been in the hospital since your No last visit? Has dressing in place as prescribed Yes Has compression in place as prescribed N/A Has offloadiing in place as prescribed N/A Experienced any changes in pain level or No management Left Footwear Regular Shoe Right Footwear Regular Shoe Pain Scale: 0-10 Numeric Is Patient Pain Free? Yes WC - Nurse 1 - General Ulcer Measurement Start: 07/01/24 10:01 Freq: Status: Active Protocol: Activity Type Activity Date Activity User E-sign Co-sign Detail Recorded Client Recorded Date Recorded By Document 07/01/24 10:01 ML [id number] 07/01/24 10:07 ML Document 07/08/24 09:43 KW [id number] 07/08/24 09:48 KW Document 07/15/24 09:55 RB [id number] 07/15/24 09:57 RB Document 07/22/24 10:38 KW [id number] 07/22/24 10:41 KW 07/01/24 07/08/24 07/15/24 10:01 09:43 09:55 Wound Center Nurse 1 #3 L Lateral Plantar Foot -Combined with other wound No -Current Size (cm) - Length 1 1 1 -Current Size (cm) - Width 0.5 0.9 0.6 -Current Size (cm) - Depth 0.2 0.2 0.1 -Total Square Cm 0.5 0.9 0.6 -Photo Taken Yes Yes -Tunneling No No -Undermining/Tunneling No No -Circular Undermining No No -Exudate Amt Medium Medium Medium -Exudate Type Serosanguineous Serosanguineous Serosanguineous -Wound Margin Distinct, Distinct, Thickened Outline Outline Attached Attached -Granulation Amt Medium (34-66%) Medium (34-66%) Medium (34-66%) -Granulation Quality [place] -Slough/Fibrin Yes Yes Yes -Necrosis Amt Medium (34-66%) Medium (34-66%) Medium (34-66%) -Necrotic Tissue Type Adherent Slough Adherent Slough Adherent Slough -Structure Exposed N/A N/A -Texture (Flory-wound Skin Appearance) Assessed Assessed,Callus Assessed,Callus -Moisture (Flory-wound Skin Appearance) Assessed Assessed Assessed -Color (Flory-wound Skin Appearance) Assessed Assessed Assessed -Temperature (Flory-wound Skin No Abnormality No Abnormality No Abnormality Appearance) (Pt Warm) (Pt Warm) (Pt Warm) -Tenderness on Palpation (Flory-wound No No No Skin Appearance) -Ulcer Cleansing Rinsed/ Wound Cleanser Wound Cleanser Irrigated with Saline -Foul Odor after Cleansing No No No -Anesthetic Used 5% Lidocaine 5% Lidocaine 5% Lidocaine Gel Gel Gel 07/22/24 10:38 Wound Center Nurse 1 #3 L Lateral Plantar Foot -Combined with other wound -Current Size (cm) - Length 1 -Current Size (cm) - Width 0.8 -Current Size (cm) - Depth 0.1 -Total Square Cm 0.8 -Photo Taken -Tunneling -Undermining/Tunneling -Circular Undermining -Exudate Amt Small -Exudate Type Serosanguineous -Wound Margin Distinct, Outline Attached -Granulation Amt Large (67-100%) -Granulation Quality Red -Slough/Fibrin -Necrosis Amt -Necrotic Tissue Type -Structure Exposed -Texture (Flory-wound Skin Appearance) Callus -Moisture (Flory-wound Skin Appearance) Assessed -Color (Flory-wound Skin Appearance) Assessed -Temperature (Flroy-wound Skin No Abnormality Appearance) (Pt Warm) -Tenderness on Palpation (Flory-wound No Skin Appearance) -Ulcer Cleansing Rinsed/ Irrigated with Saline -Foul Odor after Cleansing No -Anesthetic Used 5% Lidocaine Gel WC - Nurse 2 - General Ulcer CM Notes Start: 07/01/24 10:01 Freq: Status: Active Protocol: Activity Type Activity Date Activity User E-sign Co-sign Detail Recorded Client Recorded Date Recorded By Document 07/01/24 11:26 [facility] [id number] 07/01/24 11:37 [facility] Document 07/08/24 10:58 [id number] 07/08/24 11:09 Document 07/15/24 10:06 [id number] 07/15/24 10:14 Document 07/22/24 11:14 [id number] 07/22/24 11:15 02/12/1607/08/24 07/15/24 11:26 10:58 10:06 Wound Center Nurse 2 #3 L Lateral Plantar Foot -Time 11:27 10:58 10:06 -Correct Patient Yes Yes Yes -Correct Side, Site, Position Yes Yes Yes -Correct Procedure Yes Yes Yes -Procedure Performed Yes Yes Yes -Type of Procedure Debridement Debridement Debridement -Clinical Debridement Subcutaneous Subcutaneous Subcutaneous -Tissue Removed Subcutaneous Subcutaneous Subcutaneous -Post Debridement (cm) - Length 1.0 1.1 1.0 -Post Debridement (cm) - Width 0.9 0.9 0.8 -Post Debridement (cm) - Depth 0.1 0.1 0.1 -Total Square (Post) (cm) 0.90 0.99 0.80 -Area of Debridement (cm) - Length 1.0 1.1 1.0 -Area of Debridement (cm) - Width 0.9 0.9 0.8 -Total Square (Area) (cm) 0.90 0.99 0.80 -Tunneling No No No -Undermining/Tunneling No No No -Circular Undermining No No No -Wound/Ulcer Outcome Not Healed Not Healed Not Healed -Ulcer Cleansing Rinsed/ Rinsed/ Rinsed/ Irrigated with Irrigated with Irrigated with Saline Saline Saline -Foul Odor after Cleansing No No No -Bioengineered Tissue No No No -Bleeding Controlled with Pressure Pressure Pressure -Treatment Response Procedure Procedure Procedure Tolerated Well Tolerated Well Tolerated Well -Debridement - Subq, 1st 20sq cm Yes Yes Yes Pain Scale: 0-10 Numeric Is Patient Pain Free? Yes Yes Yes 07/22/24 11:14 Wound Center Nurse 2 #3 L Lateral Plantar Foot -Time 11:14 -Correct Patient Yes -Correct Side, Site, Position Yes -Correct Procedure Yes -Procedure Performed Yes -Type of Procedure Debridement -Clinical Debridement Subcutaneous -Tissue Removed Subcutaneous -Post Debridement (cm) - Length -Post Debridement (cm) - Width -Post Debridement (cm) - Depth -Total Square (Post) (cm) -Area of Debridement (cm) - Length -Area of Debridement (cm) - Width -Total Square (Area) (cm) -Tunneling No -Undermining/Tunneling No -Circular Undermining No -Wound/Ulcer Outcome Not Healed -Ulcer Cleansing Rinsed/ Irrigated with Saline -Foul Odor after Cleansing No -Bioengineered Tissue No -Bleeding Controlled with Pressure -Treatment Response Procedure Tolerated Well -Debridement - Subq, 1st 20sq cm Yes Pain Scale: 0-10 Numeric Is Patient Pain Free? Yes - Nurse 3 - General Ulcer D/C NN Start: 07/01/24 10:01 Freq: Status: Active Protocol: Activity Type Activity Date Activity User E-sign Co-sign Detail Recorded Client Recorded Date Recorded By Document 07/01/24 11:56 RB [id number] 07/01/24 11:57 RB Document 07/08/24 11:25 KW [id number] 07/08/24 11:25 KW Document 07/15/24 10:25 KW [id number] 07/15/24 10:26 KW Document 07/22/24 11:44 GM [id number] 07/22/24 11:44 GM 07/01/24 07/08/24 07/15/24 11:56 11:25 10:25 Wound Care Center Nurse 3 #3 L Lateral Plantar Foot -Ulcer Cleansing Rinsed/ Irrigated with Saline -Primary Dressing Applied Aquacel Extra Aquacel Extra -Primary Dressing Covered/Secured with Dry Gauze,Dry Dry Gauze & Gauze & Roll Roll Gauze, Gauze,Secured Secured with with Tape Tape -Aquacel Extra 1 1 Treatment Response Procedure Tolerated Well Pain Scale: 0-10 Numeric Is Patient Pain Free? Yes Yes Yes WC - Visit Discharge Discharge Condition Stable Stable Stable Ambulatory Status Ambulatory Ambulatory Ambulatory Transportation Private Auto Private Auto Private Auto Medication Reconcilliation completed & No No No provided to patient/care provider Clinical Summary of Care Provided Yes Yes Yes #3 L Lateral Plantar Foot -Ulcer Cleansing -Foul Odor after Cleansing -Primary Dressing Covered/Secured with -Foam Supply Charges Aquacel Extra -Primary Dressing Covered/Secured with Dry Gauze & Roll Gauze, Secured with Tape -Aquacel Extra -Aquacel Extra 1 07/22/24 11:44 Wound Care Center Nurse 3 #3 L Lateral Plantar Foot -Ulcer Cleansing -Primary Dressing Applied -Primary Dressing Covered/Secured with -Aquacel Extra Treatment Response Pain Scale: 0-10 Numeric Is Patient Pain Free? Yes WC - Visit Discharge Discharge Condition Stable Ambulatory Status Ambulatory Transportation Private Auto Medication Reconcilliation completed & provided to patient/care provider Clinical Summary of Care Provided #3 L Lateral Plantar Foot -Ulcer Cleansing Not Cleansed -Foul Odor after Cleansing No -Primary Dressing Covered/Secured with Dry Gauze,Dry Gauze & Roll Gauze,Secured with Tape -Foam Supply Charges -Primary Dressing Covered/Secured with -Aquacel Extra 1 -Aquacel Extra Assessment/Plan Assessment/Plan (1) Abscess of left foot excluding toes: CODE(S): L02.612 - Cutaneous abscess of left foot (2) Delayed wound healing: CODE(S): T14.8XXD - Other injury of unspecified body region, subsequent encounter (3) Chronic ulcer of left foot with fat layer exposed: CODE(S): L97.522 - Non-pressure chronic ulcer of other part of left foot with fat layer exposed (4) HTN (hypertension): CODE(S): I10 - Essential (primary) hypertension QUALIFIERS: Hypertension type: primary hypertension Qualified Code(s): I10 - Essential (primary) hypertension (5) Diabetic ulcer of foot associated with diabetes mellitus due to underlying condition, with fat layer exposed: CODE(S): E08.621 - Diabetes mellitus due to underlying condition with foot ulcer; L97.502 - Non-pressure chronic ulcer of other part of unspecified foot with fat layer exposed QUALIFIERS: Diabetic foot ulcer location: midfoot Laterality: left Qualified Code(s): E08.621 - Diabetes mellitus due to underlying condition with foot ulcer; L97.422 - Non-pressure chronic ulcer of left heel and midfoot with fat layer exposed (6) Type 2 diabetes mellitus without complications: CODE(S): E11.9 - Type 2 diabetes mellitus without complications QUALIFIERS: Diabetes mellitus intermediate insulin use: without pit boss 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 There has been improvement since his last visit but callus formation is still present. I suspect noncompliance of offloading to be a major factor in his delayed healing. At home wound-care instructions: Wash ulcer daily with antibacterial soap and water. Will have him continue to use Aquacel Extra to ulcer and cover with gauze and roll gauze to secure daily. Keep dressing clean and dry. His work boot was modified on 07/03/23 and again 12/25/23 to try to offload pressure. He forgot to bring insole of his work boot to be modified again. Will have him use single layer tubigrip medium compression to left LE. He reports increased swelling in his ankle and leg when wearing the tubigrip compression so has stopped wearing. Discussed possibly using TCC for offloading in near future but he is unable to do so due to work. We also discussed that there may be a single vessel narrowing that could be preventing healing and talked about possible referral to Vascular surgery to do CTA runoff. Also discussed surgical procedure proposed by podiatry to shave exostosis of bone that is likely causing ulcer and he declines at this time. Off-loading: The patient was instructed to avoid pressure and friction on the affected areas. Reposition every 2 hours at minimum. Avoid prolonged standing and/or dangling of legs. When seated, feet should be elevated at chest level. Frequent ambulation is encouraged. Diet: Patient encouraged to increase protein intake while taking caution to avoid high carbohydrate and/or sugar intake. Labs/cultures/imaging: Wound culture positive 03/27/23 and is currently on Doxycycline. Wound culture showed Staph and Strep and he was treated with Keflex based on sensitivities and use topical Gentamicin for 3 weeks. Wound culture done 09/18/23 was positive for staph epidermidis. He has been on cephalexin and doxycycline. Wound culture was positive for Enterococcus and Linezolid completed. Wound culture was positive and he will continue Flagyl, Cipro and hold cefdinir and decrease doxycycline to once/day. His put him back on Keflex and doxycycline when his ulcer worsened over . Wound culture on 04/29/24 was positive for Staph epidermidis and he completed Linezolid and is back to taking chronic doxycyline and on Bactrim. XR of foot was negative. MRI negative for osteomyelitis and arterial testing negative for arterial insufficiency. Repeat XR of foot was negative. Follow-up: Return in 1 week for wound care follow up. Return sooner or report to the emergency room should symptoms worsen, or new symptoms arise. Note: [employer] speech recognition heavy coil winder software was used to create portions of this document. Sound-alike and misspelled words, as well as other heavy coil winder errors may be contained in the documentation.
== END 2024-07-22 23:59 | disposition home or self-care (01) ==
LOC: WC 10:15
PROVIDERS: PCP Family Medicine; Referring Provider Family Medicine; Visit Provider Family Medicine
DX: E11.621 Type 2 diabetes mellitus with foot ulcer (principal); L97.422 Non-pressure chronic ulcer of left heel and midfoot with fat layer exposed; L02.612 Cutaneous abscess of left foot; I10 Essential (primary) hypertension; Z79.899 Other long term (current) drug therapy
CPT/HCPCS: 11042

== ENCOUNTER 2024-08-19 10:15 | Outpatient (RCR) | payer BC, SELFPAY ==
[2024-07-23 02:26] VITALS: BP 128/61; PULSE 82; RESP 18; TEMP 36.4
[2024-07-29 10:09] VITALS: BP 129/57; PULSE 78; RESP 16; TEMP 36.6
--- NOTE | 2024-07-29 14:06 | PCM.WC.PN ---
History of Present Illness Date of Service: 07/29/24 Chief Complaint: nonhealing wound left plantar foot History of Wound: Jose J is a 68 y/o gentleman that presents to the wound healing center for evaluation and treatment of a wound to his left plantar foot. He is a patient of Dr. Giordano. He has had a wound to this same area in February 2019 and was seen at [facility] [place] and treated there for 9 weeks with Aquacel and was placed in a wedge shoe to offload his foot. He was treated for this same wound for almost a year at this wound center and was healed in May 2020 and returned in July and was treated until September. He had undergone vascular testing at [facility] in 2018 and this has been repeated 09/2023 without significant arterial disease. 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 He and his did not want to do surgery. He has managed to do well over the last 2 years until the end of October when the area became painful again and began draining. He saw Dr. Giordano and was treated with doxycycline which helped and they had been applying Aquacel that they had from previous treatment but it has not improved. He was treated with a second course of doxycycline and then referred here for treatment. He is still working and walking on his foot in a steel toe boot 4 days a week for 10 hours. He had an offloading pad in his work boot previously but no longer has this in place. He denies claudication with walking. He has moderate to heavy drainage from the ulcer. He has not had any wound cultures taken. 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 He denies fever, chill, nausea, vomiting, redness or odor. Subjective Subjective Jose J returns today for follow up of an ulcer on the bottom of his left foot. His ulcer and drainage are relatively unchanged since last visit. He continues to wear his modified work boot to alleviate pressure to the site of the ulcer of his left foot. He has been tolerating the Aquacel Extra to the ulcer. His wound culture was positive for Staph epidermidis and negative for anaerobic bacteria. He is on Bactrim DS and doxycycline. He denies fever, chills or odor. He had MRI on 10/02/23 which did not show any osteomyelitis of his foot. Arterial testing was also done and did not show any evidence of arterial insufficiency. HgbA1C was 6.5% on 10/09/23. Objective Data Objective Data Vital Signs: Vital Signs Temp Pulse Resp BP O2 Del Method 97.8 F 78 16 129/57 H Room Air 07/29/24 10:07/29/24 10:07/29/24 10:07/29/24 10:07/29/24 10:09 Oxygen Delivery Method Room Air Physical Exam Const alert, oriented x3 and no apparent distress General Appearance: cooperative and comfortable HEENT normocephalic and head/scalp atraumatic Resp normal respiratory effort Effort and Inspection: able to speak in complete sentences Auscultation: rales, rhonchi and diminished lung sounds Cardio regular rate and regular rhythm Skin Wounds: wounds noted Wound Narrative: as in clinical panel, mild callus formation surrounding ulcer, no cellulitis or odor Psych mental status grossly normal, thought process normal, cooperative and affect normal Debridement Note Debridement Note Wound debrided: left lateral plantar ulcer Laterality: Left Wound Grade/Stage: Luther grade 1 Type of Debridement: Excisional debridement Anesthesia Used: 5% Lidocaine Gel Depth: Down to and including healthy tissue and in the subcutaneous layer Percentage of wound debrided: 100 Instrument Used: #15 blade and Forceps Tissue Removed: Yellow slough, devitalized tissue Severity: Fat Layer Exposed Amount of bleeding with debridement: Mild Bleeding Controlled with: Pressure Patient tolerated procedure: Patient tolerated procedure well Post-Debridement Measurements and Additional Note: Post-Debridement Measurements/Treatment - Nurse 1 - General Ulcer Assessment Start: 07/29/24 09:50 Freq: Status: Active Protocol: [email or web address].LOWEXT Activity Type Activity Date Activity User E-sign Co-sign Detail Recorded Client Recorded Date Recorded By Document 07/29/24 10:09 [id number] 07/29/24 10:10 07/29/24 10:09 - Today's Visit Information Type of service Follow-up Visit (Physician/[facility] ) Arrival Mode Ambulatory Accompanied by Patient Identification Verified (Name & Yes ) Vital Signs Temperature (97.8 F-99.1 F) 97.8 F Temperature Source Temporal Pulse Rate (60-100) 78 Pulse Location Monitor Respiratory Rate (12-18) 16 Respiratory rate source Observation Oxygen Delivery Method Room Air Blood Pressure (90/60-120/80) 129/57 H Blood Pressure Mean (mm Hg) 81 Source Monitor Position Semi-Fowlers Blood Pressure Location Left Arm History Since Last Visit- (Skip if this is Patient's initial visit) Have you changed medications since your No last visit? Any new allergies or adverse reactions No Had a fall/change in ADL's that may No increase risk of falls Signs or symptoms of abuse and/or No neglect since last visit Have you been in the hospital since your No last visit? Has dressing in place as prescribed Yes Has compression in place as prescribed N/A Has offloadiing in place as prescribed N/A Experienced any changes in pain level or No management Left Footwear Regular Shoe Right Footwear Regular Shoe Pain Scale: 0-10 Numeric Is Patient Pain Free? Yes WC - Nurse 1 - General Ulcer Measurement Start: 07/29/24 09:50 Freq: Status: Active Protocol: Activity Type Activity Date Activity User E-sign Co-sign Detail Recorded Client Recorded Date Recorded By Document 07/29/24 10:09 [id number] 07/29/24 10:10 KW 07/29/24 10:09 Wound Center Nurse 1 #3 L Lateral Plantar Foot -Current Size (cm) - Length 1 -Current Size (cm) - Width 0.8 -Current Size (cm) - Depth 0.1 -Total Square Cm 0.8 -Exudate Amt Small -Exudate Type Serosanguineous -Wound Margin Distinct, Outline Attached -Granulation Amt Large (67-100%) -Granulation Quality Red -Texture (Flory-wound Skin Appearance) Callus -Moisture (Flory-wound Skin Appearance) Assessed -Color (Flory-wound Skin Appearance) Assessed -Temperature (Flory-wound Skin No Abnormality Appearance) (Pt Warm) -Tenderness on Palpation (Flory-wound No Skin Appearance) -Ulcer Cleansing Rinsed/ Irrigated with Saline -Foul Odor after Cleansing No -Anesthetic Used 5% Lidocaine Gel WC - Nurse 2 - General Ulcer CM Notes Start: 07/29/24 09:50 Freq: Status: Active Protocol: Activity Type Activity Date Activity User E-sign Co-sign Detail Recorded Client Recorded Date Recorded By Document 07/29/24 10:18 [id number] 07/29/24 10:29 07/29/24 10:18 Wound Center Nurse 2 -Time 10:18 -Correct Patient Yes -Correct Side, Site, Position Yes -Correct Procedure Yes -Procedure Performed Yes -Type of Procedure Debridement -Clinical Debridement Subcutaneous -Tissue Removed Subcutaneous -Post Debridement (cm) - Length 1.0 -Post Debridement (cm) - Width 0.9 -Post Debridement (cm) - Depth 0.1 -Total Square (Post) (cm) 0.90 -Area of Debridement (cm) - Length 1.0 -Area of Debridement (cm) - Width 0.9 -Total Square (Area) (cm) 0.90 -Tunneling No -Undermining/Tunneling No -Circular Undermining No -Wound/Ulcer Outcome Not Healed -Ulcer Cleansing Rinsed/ Irrigated with Saline -Foul Odor after Cleansing No -Bioengineered Tissue No -Bleeding Controlled with Pressure -Treatment Response Procedure Tolerated Well -Debridement - Subq, 1st 20sq cm Yes Pain Scale: 0-10 Numeric Is Patient Pain Free? Yes - Nurse 3 - General Ulcer D/C NN Start: 07/29/24 09:50 Freq: Status: Active Protocol: Activity Type Activity Date Activity User E-sign Co-sign Detail Recorded Client Recorded Date Recorded By Document 07/29/24 10:37 DS [id number] 07/29/24 10:43 DS 07/29/24 10:37 Wound Care Center Nurse 3 #3 L Lateral Plantar Foot -Ulcer Cleansing Rinsed/ Irrigated with Saline -Primary Dressing Applied Aquacel Extra -Primary Dressing Covered/Secured with Dry Gauze, Secured with Tape -Aquacel Extra 1 Pain Scale: 0-10 Numeric Is Patient Pain Free? Yes - Visit Discharge Discharge Condition Stable Ambulatory Status Ambulatory Transportation Private Auto Assessment/Plan Assessment/Plan (1) Abscess of left foot excluding toes: CODE(S): L02.612 - Cutaneous abscess of left foot (2) Delayed wound healing: CODE(S): T14.8XXD - Other injury of unspecified body region, subsequent encounter (3) Chronic ulcer of left foot with fat layer exposed: CODE(S): L97.522 - Non-pressure chronic ulcer of other part of left foot with fat layer exposed (4) HTN (hypertension): CODE(S): I10 - Essential (primary) hypertension QUALIFIERS: Hypertension type: primary hypertension Qualified Code(s): I10 - Essential (primary) hypertension (5) Diabetic ulcer of foot associated with diabetes mellitus due to underlying condition, with fat layer exposed: CODE(S): E08.621 - Diabetes mellitus due to underlying condition with foot ulcer; L97.502 - Non-pressure chronic ulcer of other part of unspecified foot with fat layer exposed QUALIFIERS: Diabetic foot ulcer location: midfoot Laterality: left Qualified Code(s): E08.621 - Diabetes mellitus due to underlying condition with foot ulcer; L97.422 - Non-pressure chronic ulcer of left heel and midfoot with fat layer exposed (6) Type 2 diabetes mellitus without complications: CODE(S): E11.9 - Type 2 diabetes mellitus without complications QUALIFIERS: Diabetes mellitus chcf insulin use: without terminal operations supervisor 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 There has been improvement since his last visit but callus formation is still present. I suspect noncompliance of offloading to be a major factor in his delayed healing. At home wound-care instructions: Wash ulcer daily with antibacterial soap and water. Will have him continue to use Aquacel Extra to ulcer and cover with gauze and roll gauze to secure daily. Keep dressing clean and dry. His work boot was modified on 07/03/23 and again 12/25/23 to try to offload pressure. He forgot to bring insole of his work boot to be modified again. Will have him use single layer tubigrip medium compression to left LE. He reports increased swelling in his ankle and leg when wearing the tubigrip compression so has stopped wearing. Discussed possibly using TCC for offloading in near future but he is unable to do so due to work. We also discussed that there may be a single vessel narrowing that could be preventing healing and talked about possible referral to Vascular surgery to do CTA runoff. Also discussed surgical procedure proposed by podiatry to shave exostosis of bone that is likely causing ulcer and he declines at this time. Off-loading: The patient was instructed to avoid pressure and friction on the affected areas. Reposition every 2 hours at minimum. Avoid prolonged standing and/or dangling of legs. When seated, feet should be elevated at chest level. Frequent ambulation is encouraged. Diet: Patient encouraged to increase protein intake while taking caution to avoid high carbohydrate and/or sugar intake. Labs/cultures/imaging: Wound culture positive 03/27/23 and is currently on Doxycycline. Wound culture showed Staph and Strep and he was treated with Keflex based on sensitivities and use topical Gentamicin for 3 weeks. Wound culture done 09/18/23 was positive for staph epidermidis. He has been on cephalexin and doxycycline. Wound culture was positive for Enterococcus and Linezolid completed. Wound culture was positive and he will continue Flagyl, Cipro and hold cefdinir and decrease doxycycline to once/day. His put him back on Keflex and doxycycline when his ulcer worsened over . Wound culture on 04/29/24 was positive for Staph epidermidis and he completed Linezolid and is back to taking chronic doxycyline and on Bactrim. XR of foot was negative. MRI negative for osteomyelitis and arterial testing negative for arterial insufficiency. Repeat XR of foot was negative. Follow-up: Return in 1 week for wound care follow up. Return sooner or report to the emergency room should symptoms worsen, or new symptoms arise. Note: [employer] speech recognition interlocker maintainer software was used to create portions of this document. Sound-alike and misspelled words, as well as other interlocker maintainer errors may be contained in the documentation.
[2024-08-12 09:55] VITALS: BP 135/58; PULSE 77; RESP 18; TEMP 36.1
--- NOTE | 2024-08-12 11:56 | RAD_ITS ---
PROCEDURE: TOE(S) MIN 2 VIEWS 08/12/2024 REASON FOR EXAM: R/O OSTEOMYELITIS, CELLULITIS TECHNIQUE: 3 view(s) of the foot with attention of the left toe COMPARISON: Comparison is made with prior study dated March 25, 2024. FINDINGS: No visible fracture. Normal alignment. Soft tissue swelling overlying the base of the proximal phalanx of the 5th toe with the calcifications suggestive of possible dressing. No evidence of osteomyelitis at this time. RAD/Toe(s) Min 2 Views IMPRESSION: Soft tissue swelling. No evidence of osteomyelitis. Linear calcific density seen overlying the proximal phalanx of the 5th toe. Th is may represent superficial dressing. Reading Location: [facility]
--- NOTE | 2024-08-12 12:33 | WC ---
PHOTO 08/12/24 LEFT LATERAL PLANTAR
--- NOTE | 2024-08-12 14:35 | PN.PCM_ITS ---
History of Present Illness Date of Service: 08/12/24 Chief Complaint: nonhealing wound left plantar foot History of Wound: Jose J is a 68 y/o gentleman that presents to the wound healing center for evaluation and treatment of a wound to his left plantar foot. He is a patient of Dr. Giordano. He has had a wound to this same area in February 2019 and was seen at [facility] and treated there for 9 weeks with Aquacel and was placed in a wedge shoe to offload his foot. He was treated for this same wound for almost a year at this wound center and was healed in May 2020 and returned in July and was treated until September. He had undergone vascular testing at [facility] in 2018 and this has been repeated 09/2023 without significant arterial disease. 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 He and his did not want to do surgery. He has managed to do well over the last 2 years until the end of October when the area became painful again and began draining. He saw Dr. Giordano and was treated with doxycycline which helped and they had been applying Aquacel that they had from previous treatment but it has not improved. He was treated with a second course of doxycycline and then referred here for treatment. He is still working and walking on his foot in a steel toe boot 4 days a week for 10 hours. He had an offloading pad in his work boot previously but no longer has this in place. He denies claudication with walking. He has moderate to heavy drainage from the ulcer. He has not had any wound cultures taken. 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 He denies fever, chill, nausea, vomiting, redness or odor. Subjective Subjective Jose J returns today for follow up of an ulcer on the bottom of his left foot. His ulcer and drainage are relatively unchanged since last visit. He continues to wear his modified work boot to alleviate pressure to the site of the ulcer of his left foot. He has been tolerating the Aquacel Extra to the ulcer. His wound culture was positive for Staph epidermidis and negative for anaerobic bacteria. He is on Bactrim DS and doxycycline. He denies fever, chills or odor. He had MRI on 10/02/23 which did not show any osteomyelitis of his foot. Arterial testing was also done and did not show any evidence of arterial insufficiency. HgbA1C was 6.5% on 10/09/23. Objective Data Objective Data Vital Signs: Vital Signs Temp Pulse Resp BP O2 Del Method 97 F L 77 18 135/58 H Room Air 08/12/24 09:55 08/12/24 09:55 08/12/24 09:55 08/12/24 09:55 07/29/24 10:09 Oxygen Delivery Method Room Air Radiography Diagnostic Testing: Radiology Impression Toe X-Ray 08/12/24 11:56 IMPRESSION: Soft tissue swelling. No evidence of osteomyelitis. Linear calcific density seen overlying the proximal phalanx of the 5th toe. This may represent superficial dressing. Reading Location: [place] [id number] Physical Exam Const alert, oriented x3 and no apparent distress General Appearance: cooperative and comfortable HEENT normocephalic and head/scalp atraumatic Resp normal respiratory effort Effort and Inspection: able to speak in complete sentences Auscultation: rales, rhonchi and diminished lung sounds Cardio regular rate and regular rhythm Skin Wounds: wounds noted Wound Narrative: as in clinical panel, mild callus formation surrounding ulcer, no cellulitis or odor but swelling of the 5th toe, purulent drainage expressed from superior part of the ulcer Psych mental status grossly normal, thought process normal, cooperative and affect normal Debridement Note Debridement Note Wound debrided: left lateral plantar ulcer Laterality: Left Wound Grade/Stage: Luther grade 1 Type of Debridement: Excisional debridement Anesthesia Used: 5% Lidocaine Gel Depth: Down to and including healthy tissue and in the subcutaneous layer Percentage of wound debrided: 100 Instrument Used: #15 blade and Forceps Tissue Removed: Yellow slough, devitalized tissue Severity: Fat Layer Exposed Amount of bleeding with debridement: Mild Bleeding Controlled with: Pressure Patient tolerated procedure: Patient tolerated procedure well Post-Debridement Measurements and Additional Note: Post-Debridement Measurements/Treatment WC - Nurse 1 - General Ulcer Assessment Start: 07/29/24 09:50 Freq: Status: Active Protocol: KANIKA Activity Type Activity Date Activity User E-sign Co-sign Detail Recorded Client Recorded Date Recorded By Document 07/29/24 10:09 KW [id number] 07/29/24 10:10 KW Document 08/12/24 09:55 RB [id number] 08/12/24 09:57 RB 07/29/24 08/12/24 10:09 09:55 - Today's Visit Information Type of service Follow-up Visit Follow-up Visit (Physician/PHOTO MASK CLEANER (Physician/PHOTO MASK CLEANER ) ) Arrival Mode Ambulatory Ambulatory Transfer Assistance None Accompanied by Patient Identification Verified (Name & Yes Yes ) Patient Requires Transmission-Based No Precautions Vital Signs Temperature (97.8 F-99.1 F) 97.8 F 97 F L Temperature Source Temporal Temporal Pulse Rate (60-100) 78 77 Pulse Location Monitor Monitor Respiratory Rate (12-18) 16 18 Respiratory rate source Observation Observation Oxygen Delivery Method Room Air Blood Pressure (90/60-120/80) 129/57 H 135/58 H Blood Pressure Mean (mm Hg) 81 83 Source Monitor Monitor Position Semi-Fowlers Semi-Fowlers Blood Pressure Location Left Arm Left Arm History Since Last Visit- (Skip if this is Patient's initial visit) Have you changed medications since your No No last visit? Any new allergies or adverse reactions No No Had a fall/change in ADL's that may No No increase risk of falls Signs or symptoms of abuse and/or No No neglect since last visit Have you been in the hospital since your No No last visit? Has dressing in place as prescribed Yes Yes Has compression in place as prescribed N/A N/A Has offloadiing in place as prescribed N/A Yes Experienced any changes in pain level or No No management Left Footwear Regular Shoe Custom Shoe Right Footwear Regular Shoe Regular Shoe Pain Scale: 0-10 Numeric Is Patient Pain Free? Yes Yes - Nurse 1 - General Ulcer Measurement Start: 07/29/24 09:50 Freq: Status: Active Protocol: Activity Type Activity Date Activity User E-sign Co-sign Detail Recorded Client Recorded Date Recorded By Document 07/29/24 10:09 KW [id number] 07/29/24 10:10 KW Document 08/12/24 09:55 RB [id number] 08/12/24 09:57 RB 07/29/24 08/12/24 10:09 09:55 Wound Center Nurse 1 #3 L Lateral Plantar Foot -Combined with other wound No -Current Size (cm) - Length 1 0.9 -Current Size (cm) - Width 0.8 0.9 -Current Size (cm) - Depth 0.1 0.1 -Total Square Cm 0.8 0.81 -Photo Taken Yes -Tunneling No -Undermining/Tunneling No -Circular Undermining No -Exudate Amt Small Medium -Exudate Type Serosanguineous Serosanguineous -Wound Margin Distinct, Thickened Outline Attached -Granulation Amt Large (67-100%) Medium (34-66%) -Granulation Quality Red [place] -Slough/Fibrin Yes -Necrosis Amt Small (1-33%) -Necrotic Tissue Type Adherent Slough -Structure Exposed N/A -Texture (Flory-wound Skin Appearance) Callus Assessed,Callus -Moisture (Flory-wound Skin Appearance) Assessed Assessed -Color (Flory-wound Skin Appearance) Assessed Assessed -Temperature (Flory-wound Skin No Abnormality No Abnormality Appearance) (Pt Warm) (Pt Warm) -Tenderness on Palpation (Flory-wound No No Skin Appearance) -Ulcer Cleansing Rinsed/ Wound Cleanser Irrigated with Saline -Foul Odor after Cleansing No No -Anesthetic Used 5% Lidocaine 5% Lidocaine Gel Gel WC - Nurse 2 - General Ulcer CM Notes Start: 07/29/24 09:50 Freq: Status: Active Protocol: Activity Type Activity Date Activity User E-sign Co-sign Detail Recorded Client Recorded Date Recorded By Document 07/29/24 10:18 [id number] 07/29/24 10:29 Document 08/12/24 10:51 [id number] 08/12/24 11:17 07/29/24 08/12/24 10:18 10:51 Wound Center Nurse 2 #3 L Lateral Plantar Foot -Time 10:18 10:51 -Correct Patient Yes Yes -Correct Side, Site, Position Yes Yes -Correct Procedure Yes Yes -Procedure Performed Yes Yes -Type of Procedure Debridement Debridement -Clinical Debridement Subcutaneous Subcutaneous -Tissue Removed Subcutaneous Subcutaneous -Post Debridement (cm) - Length 1.0 3.0 -Post Debridement (cm) - Width 0.9 1.2 -Post Debridement (cm) - Depth 0.1 0.2 -Total Square (Post) (cm) 0.90 3.60 -Area of Debridement (cm) - Length 1.0 3.0 -Area of Debridement (cm) - Width 0.9 1.2 -Total Square (Area) (cm) 0.90 3.60 -Tunneling No No -Undermining/Tunneling No No -Circular Undermining No No -Wound/Ulcer Outcome Not Healed Not Healed -Ulcer Cleansing Rinsed/ Rinsed/ Irrigated with Irrigated with Saline Saline -Foul Odor after Cleansing No No -Bioengineered Tissue No No -Bleeding Controlled with Pressure Pressure,Silver Nitrate -Treatment Response Procedure Procedure Tolerated Well Tolerated Well -Debridement - Subq, 1st 20sq cm Yes Yes Pain Scale: 0-10 Numeric Is Patient Pain Free? Yes Yes - Nurse 3 - General Ulcer D/C NN Start: 07/29/24 09:50 Freq: Status: Active Protocol: Activity Type Activity Date Activity User E-sign Co-sign Detail Recorded Client Recorded Date Recorded By Document 07/29/24 10:37 DS [id number] 07/29/24 10:43 DS Document 08/12/24 11:31 KW [id number] 08/12/24 11:31 KW 07/29/24 08/12/24 10:37 11:31 Wound Care Center Nurse 3 #3 L Lateral Plantar Foot -Ulcer Cleansing Rinsed/ Irrigated with Saline -Primary Dressing Applied Aquacel Extra Aquacel Extra -Primary Dressing Covered/Secured with Dry Gauze, Dry Gauze & Secured with Roll Gauze, Tape Secured with Tape -Aquacel Extra 1 1 Pain Scale: 0-10 Numeric Is Patient Pain Free? Yes Yes - Visit Discharge Discharge Condition Stable Stable Ambulatory Status Ambulatory Ambulatory Transportation Private Auto Private Auto Medication Reconcilliation completed & No provided to patient/care provider Clinical Summary of Care Provided Yes Assessment/Plan Assessment/Plan (1) Abscess of left foot excluding toes: CODE(S): L02.612 - Cutaneous abscess of left foot (2) Delayed wound healing: CODE(S): T14.8XXD - Other injury of unspecified body region, subsequent encounter (3) Chronic ulcer of left foot with fat layer exposed: CODE(S): L97.522 - Non-pressure chronic ulcer of other part of left foot with fat layer exposed (4) HTN (hypertension): CODE(S): I10 - Essential (primary) hypertension QUALIFIERS: Hypertension type: primary hypertension Qualified Code(s): I10 - Essential (primary) hypertension (5) Diabetic ulcer of foot associated with diabetes mellitus due to underlying condition, with fat layer exposed: CODE(S): E08.621 - Diabetes mellitus due to underlying condition with foot ulcer; L97.502 - Non-pressure chronic ulcer of other part of unspecified foot with fat layer exposed QUALIFIERS: Diabetic foot ulcer location: midfoot Laterality: left Qualified Code(s): E08.621 - Diabetes mellitus due to underlying condition with foot ulcer; L97.422 - Non-pressure chronic ulcer of left heel and midfoot with fat layer exposed (6) Type 2 diabetes mellitus without complications: CODE(S): E11.9 - Type 2 diabetes mellitus without complications QUALIFIERS: Diabetes mellitus fdc insulin use: without 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 It has been stable since his last visit but callus formation is still present. I suspect noncompliance of offloading to be a major factor in his delayed healing. Unroofed skin overlying abscess with purulent drainage expressed. At home wound-care instructions: Wash ulcer daily with antibacterial soap and water. Will have him continue to use Aquacel Extra to ulcer and cover with gauze and roll gauze to secure daily. Keep dressing clean and dry. His work boot was modified on 07/03/23 and again 12/25/23 to try to offload pressure. He forgot to bring insole of his work boot to be modified again. Will have him use single layer tubigrip medium compression to left LE. He reports increased swelling in his ankle and leg when wearing the tubigrip compression so has stopped wearing. Discussed possibly using TCC for offloading in near future but he is unable to do so due to work. We also discussed that there may be a single vessel narrowing that could be preventing healing and talked about possible referral to Vascular surgery to do CTA runoff. Also discussed surgical procedure proposed by podiatry to shave exostosis of bone that is likely causing ulcer and he declines at this time. Off-loading: The patient was instructed to avoid pressure and friction on the affected areas. Reposition every 2 hours at minimum. Avoid prolonged standing and/or dangling of legs. When seated, feet should be elevated at chest level. Frequent ambulation is encouraged. Diet: Patient encouraged to increase protein intake while taking caution to avoid high carbohydrate and/or sugar intake. Labs/cultures/imaging: Wound culture positive 03/27/23 and is currently on Doxycycline. Wound culture showed Staph and Strep and he was treated with Keflex based on sensitivities and use topical Gentamicin for 3 weeks. Wound culture done 09/18/23 was positive for staph epidermidis. He has been on cephalexin and doxycycline. Wound culture was positive for Enterococcus and Linezolid compl eted. Wound culture was positive and he will continue Flagyl, Cipro and hold cefdinir and decrease doxycycline to once/day. His put him back on Keflex and doxycycline when his ulcer worsened over . Wound culture on 04/29/24 was positive for Staph epidermidis and he completed Linezolid and is back to taking chronic doxycyline and on Bactrim. Wound culture taken today. XR of foot was negative. MRI negative for osteomyelitis and arterial testing negative for arterial insufficiency. Repeat XR of foot was negative. XR ordered again today to r/o osteomyelitis Follow-up: Return in 1 week for wound care follow up. Return sooner or report to the emergency room should symptoms worsen, or new symptoms arise. Note: [employer] speech recognition biztalk consultant software was used to create portions of this document. Sound-alike and misspelled words, as well as other biztalk consultant errors may be contained in the documentation.
[2024-08-19 10:20] VITALS: BP 126/60; PULSE 73; RESP 16
--- NOTE | 2024-08-19 12:29 | WC ---
PHOTO 08/19/24 LEFT PLANTAR
--- NOTE | 2024-08-19 13:39 | PN.PCM_ITS ---
History of Present Illness Date of Service: 08/19/24 Chief Complaint: nonhealing wound left plantar foot History of Wound: Jose J is a 68 y/o gentleman that presents to the wound healing center for evaluation and treatment of a wound to his left plantar foot. He is a patient of Dr. Giordano. He has had a wound to this same area in February 2019 and was seen at [facility] [place] and treated there for 9 weeks with Aquacel and was placed in a wedge shoe to offload his foot. He was treated for this same wound for almost a year at this wound center and was healed in May 2020 and returned in July and was treated until September. He had undergone vascular testing at [facility] in 2018 and this has been repeated 09/2023 without significant arterial disease. 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 He and his did not want to do surgery. He has managed to do well over the last 2 years until the end of October when the area became painful again and began draining. He saw Dr. Giordano and was treated with doxycycline which helped and they had been applying Aquacel that they had from previous treatment but it has not improved. He was treated with a second course of doxycycline and then referred here for treatment. He is still working and walking on his foot in a steel toe boot 4 days a week for 10 hours. He had an offloading pad in his work boot previously but no longer has this in place. He denies claudication with walking. He has moderate to heavy drainage from the ulcer. He has not had any wound cultures taken. 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 He denies fever, chill, nausea, vomiting, redness or odor. Subjective Subjective Jose J returns today for follow up of an ulcer on the bottom of his left foot. His ulcer and drainage are relatively unchanged since last visit. He continues to wear his modified work boot to alleviate pressure to the site of the ulcer of his left foot. He has been tolerating the Aquacel Extra to the ulcer. His wound culture was positive for Staph epidermidis and negative for anaerobic bacteria. He is on Bactrim DS and doxycycline. He denies fever, chills or odor. He had MRI on 10/02/23 which did not show any osteomyelitis of his foot. Arterial testing was also done and did not show any evidence of arterial insufficiency. HgbA1C was 6.5% on 10/09/23. Objective Data Objective Data Vital Signs: Vital Signs Temp Pulse Resp BP O2 Del Method 97 F L 73 16 126/60 H Room Air 08/12/24 09:55 08/19/24 10:20 08/19/24 10:20 08/19/24 10:20 08/19/24 10:20 Oxygen Delivery Method Room Air Lab / Micro Data Micro: Microbiology 08/12/24 10:57 Wound - Left Foot Gram Stain - Final 08/12/24 10:57 Wound - Left Foot Wound Culture - Final Corynebacterium striatum 08/12/24 10:57 Wound - Left Foot Anaerobic Culture - Final No anaerobic bacteria isolated. Physical Exam Const alert, oriented x3 and no apparent distress General Appearance: cooperative and comfortable HEENT normocephalic and head/scalp atraumatic Resp normal respiratory effort Effort and Inspection: able to speak in complete sentences Auscultation: rales, rhonchi and diminished lung sounds Cardio regular rate and regular rhythm Skin Wounds: wounds noted Wound Narrative: as in clinical panel, mild callus formation surrounding ulcer, no cellulitis or odor but swelling of the 5th toe, purulent drainage expressed from superior part of the ulcer Psych mental status grossly normal, thought process normal, cooperative and affect normal Debridement Note Debridement Note Wound debrided: left lateral plantar ulcer Laterality: Left Wound Grade/Stage: Luther grade 1 Type of Debridement: Excisional debridement Anesthesia Used: 5% Lidocaine Gel Depth: Down to and including healthy tissue and in the subcutaneous layer Percentage of wound debrided: 100 Instrument Used: 3mm curette and Forceps Tissue Removed: Yellow slough, devitalized tissue Severity: Fat Layer Exposed Amount of bleeding with debridement: Mild Bleeding Controlled with: Pressure Patient tolerated procedure: Patient tolerated procedure well Post-Debridement Measurements and Additional Note: Post-Debridement Measurements/Treatment WC - Nurse 1 - General Ulcer Assessment Start: 07/29/24 09:50 Freq: Status: Active Protocol: KANIKA Activity Type Activity Date Activity User E-sign Co-sign Detail Recorded Client Recorded Date Recorded By Document 07/29/24 10:09 [id number] 07/29/24 10:10 KW Document 08/12/24 09:55 RB [id number] 08/12/24 09:57 RB Document 08/19/24 10:20 DS [id number] 08/19/24 10:22 DS 07/29/24 08/12/24 08/19/24 10:09 09:55 10:20 - Today's Visit Information Type of service Follow-up Visit Follow-up Visit Follow-up Visit (Physician/FIRE MANAGEMENT TECHNICIAN (Physician/FIRE MANAGEMENT TECHNICIAN (Physician/FIRE MANAGEMENT TECHNICIAN ) ) ) Arrival Mode Ambulatory Ambulatory Ambulatory Transfer Assistance None Accompanied by Patient Identification Verified (Name & Yes Yes Yes ) Patient Requires Transmission-Based No No Precautions Safety Precautions Fall Prevention Vital Signs Temperature (97.8 F-99.1 F) 97.8 F 97 F L Temperature Source Temporal Temporal Temporal Pulse Rate (60-100) 78 77 73 Pulse Location Monitor Monitor Monitor Respiratory Rate (12-18) 16 18 16 Respiratory rate source Observation Observation Observation Oxygen Delivery Method Room Air Room Air Blood Pressure (90/60-120/80) 129/57 H 135/58 H 126/60 H Blood Pressure Mean (mm Hg) 81 83 82 Source Monitor Monitor Monitor Position Semi-Fowlers Semi-Fowlers Semi-Fowlers Blood Pressure Location Left Arm Left Arm Left Arm History Since Last Visit- (Skip if this is Patient's initial visit) Have you changed medications since your No No No last visit? Any new allergies or adverse reactions No No No Had a fall/change in ADL's that may No No No increase risk of falls Signs or symptoms of abuse and/or No No neglect since last visit Have you been in the hospital since your No No No last visit? Has dressing in place as prescribed Yes Yes Yes Has compression in place as prescribed N/A N/A N/A Has offloadiing in place as prescribed N/A Yes N/A Experienced any changes in pain level or No No No management Left Footwear Regular Shoe Custom Shoe Regular Shoe Right Footwear Regular Shoe Regular Shoe Regular Shoe Pain Scale: 0-10 Numeric Is Patient Pain Free? Yes Yes Yes - Nurse 1 - General Ulcer Measurement Start: 07/29/24 09:50 Freq: Status: Active Protocol: Activity Type Activity Date Activity User E-sign Co-sign Detail Recorded Client Recorded Date Recorded By Document 07/29/24 10:09 KW [id number] 07/29/24 10:10 KW Document 08/12/24 09:55 RB [id number] 08/12/24 09:57 RB Document 08/19/24 10:22 DS [id number] 08/19/24 10:28 DS Edit Result 08/19/24 10:22 DS (1) [id number] 08/19/24 10:56 DS (1) #3 L Lateral Plantar Foot - Date of Last Picture (Recall this => 08/19/24 field) - Texture (Flory-wound Skin Appearance) Callus => Assessed,Callus 07/29/24 08/12/24 08/19/24 10:09 09:55 10:22 Wound Center Nurse 1 #3 L Lateral Plantar Foot -Combined with other wound No No -Current Size (cm) - Length 1 0.9 2.5 -Current Size (cm) - Width 0.8 0.9 1 -Current Size (cm) - Depth 0.1 0.1 0.2 -Total Square Cm 0.8 0.81 2.5 -Date of Last Picture (Recall this 08/19/24 field) -Photo Taken Yes Yes -Tunneling No No -Undermining/Tunneling No No -Circular Undermining No No -Exudate Amt Small Medium Medium -Exudate Type Serosanguineous Serosanguineous Serosanguineous -Wound Margin Distinct, Thickened Thickened Outline Attached -Granulation Amt Large (67-100%) Medium (34-66%) Medium (34-66%) -Granulation Quality Red Drumright Drumright -Slough/Fibrin Yes Yes -Necrosis Amt Small (1-33%) Medium (34-66%) -Necrotic Tissue Type Adherent Slough Adherent Slough -Structure Exposed N/A N/A -Texture (Flory-wound Skin Appearance) Callus Assessed,Callus Assessed,Callus -Moisture (Flory-wound Skin Appearance) Assessed Assessed Assessed -Color (Flory-wound Skin Appearance) Assessed Assessed Assessed -Temperature (Flory-wound Skin No Abnormality No Abnormality No Abnormality Appearance) (Pt Warm) (Pt Warm) (Pt Warm) -Tenderness on Palpation (Flory-wound No No No Skin Appearance) -Ulcer Cleansing Rinsed/ Wound Cleanser Wound Cleanser Irrigated with Saline -Foul Odor after Cleansing No No No -Anesthetic Used 5% Lidocaine 5% Lidocaine 5% Lidocaine Gel Gel Gel WC - Nurse 2 - General Ulcer CM Notes Start: 07/29/24 09:50 Freq: Status: Active Protocol: Activity Type Activity Date Activity User E-sign Co-sign Detail Recorded Client Recorded Date Recorded By Document 07/29/24 10:18 GM [id number] 07/29/24 10:29 GM Document 08/12/24 10:51 GM [id number] 08/12/24 11:17 GM Document 08/19/24 10:56 DS [id number] 08/19/24 11:08 DS 07/29/24 08/12/24 08/19/24 10:18 10:51 10:56 Wound Center Nurse 2 #3 L Lateral Plantar Foot -Time 10:18 10:51 10:56 -Correct Patient Yes Yes Yes -Correct Side, Site, Position Yes Yes Yes -Correct Procedure Yes Yes Yes -Procedure Performed Yes Yes Yes -Type of Procedure Debridement Debridement Debridement -Clinical Debridement Subcutaneous Subcutaneous Subcutaneous -Tissue Removed Subcutaneous Subcutaneous Subcutaneous -Post Debridement (cm) - Length 1.0 3.0 2.5 -Post Debridement (cm) - Width 0.9 1.2 1.0 -Post Debridement (cm) - Depth 0.1 0.2 0.2 -Total Square (Post) (cm) 0.90 3.60 2.50 -Area of Debridement (cm) - Length 1.0 3.0 2.5 -Area of Debridement (cm) - Width 0.9 1.2 1.0 -Total Square (Area) (cm) 0.90 3.60 2.50 -Tunneling No No No -Undermining/Tunneling No No No -Circular Undermining No No No -Wound/Ulcer Outcome Not Healed Not Healed Not Healed -Ulcer Cleansing Rinsed/ Rinsed/ Rinsed/ Irrigated with Irrigated with Irrigated with Saline Saline Saline -Foul Odor after Cleansing No No No -Bioengineered Tissue No No No -Bleeding Controlled with Pressure Pressure,Silver Pressure Nitrate -Treatment Response Procedure Procedure Procedure Tolerated Well Tolerated Well Tolerated Well -Debridement - Subq, 1st 20sq cm Yes Yes Yes Pain Scale: 0-10 Numeric Is Patient Pain Free? Yes Yes Yes QUOC - Nurse 3 - General Ulcer D/C NN Start: 07/29/24 09:50 Freq: Status: Active Protocol: Activity Type Activity Date Activity User E-sign Co-sign Detail Recorded Client Recorded Date Recorded By Document 07/29/24 10:37 DS [id number] 07/29/24 10:43 DS Document 08/12/24 11:31 KW [id number] 08/12/24 11:31 KW Document 08/19/24 11:37 RB [id number] 08/19/24 11:38 RB 07/29/24 08/12/24 08/19/24 10:37 11:31 11:37 Wound Care Center Nurse 3 #3 L Lateral Plantar Foot -Ulcer Cleansing Rinsed/ Rinsed/ Irrigated with Irrigated with Saline Saline -Primary Dressing Applied Aquacel Extra Aquacel Extra Aquacel Extra -Primary Dressing Covered/Secured with Dry Gauze, Dry Gauze & Dry Gauze,Dry Secured with Roll Gauze, Gauze & Roll Tape Secured with Gauze,Secured Tape with Tape -Aquacel Extra 1 1 1 Treatment Response Procedure Tolerated Well Pain Scale: 0-10 Numeric Is Patient Pain Free? Yes Yes Yes WC - Visit Discharge Discharge Condition Stable Stable Stable Ambulatory Status Ambulatory Ambulatory Ambulatory Transportation Private Auto Private Auto Private Auto Medication Reconcilliation completed & No No provided to patient/care provider Clinical Summary of Care Provided Yes Yes Assessment/Plan Assessment/Plan (1) Abscess of left foot excluding toes: CODE(S): L02.612 - Cutaneous abscess of left foot (2) Delayed wound healing: CODE(S): T14.8XXD - Other injury of unspecified body region, subsequent encounter (3) Chronic ulcer of left foot with fat layer exposed: CODE(S): L97.522 - Non-pressure chronic ulcer of other part of left foot with fat layer exposed (4) HTN (hypertension): CODE(S): I10 - Essential (primary) hypertension QUALIFIERS: Hypertension type: primary hypertension Qualified Code(s): I10 - Essential (primary) hypertension (5) Diabetic ulcer of foot associated with diabetes mellitus due to underlying c ondition, with fat layer exposed: CODE(S): E08.621 - Diabetes mellitus due to underlying condition with foot ulcer; L97.502 - Non-pressure chronic ulcer of other part of unspecified foot with fat layer exposed QUALIFIERS: Diabetic foot ulcer location: midfoot Laterality: left Qualified Code(s): E08.621 - Diabetes mellitus due to underlying condition with foot ulcer; L97.422 - Non-pressure chronic ulcer of left heel and midfoot with fat layer exposed (6) Type 2 diabetes mellitus without complications: CODE(S): E11.9 - Type 2 diabetes mellitus without complications QUALIFIERS: Diabetes mellitus intermediate project manager insulin use: without nursing home 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 It has been stable since his last visit but callus formation is still present. I suspect noncompliance of offloading to be a major factor in his delayed healing. At home wound-care instructions: Wash ulcer daily with antibacterial soap and water. Will have him continue to use Aquacel Extra to ulcer and cover with gauze and roll gauze to secure daily. Keep dressing clean and dry. His work boot was modified on 07/03/23 and again 12/25/23 to try to offload pressure. Will have him use single layer tubigrip medium compression to left LE. He reports increased swelling in his ankle and leg when wearing the tubigrip compression so has stopped wearing. Discussed possibly using TCC for offloading in near future but he is unable to do so due to work. We also discussed that there may be a single vessel narrowing that could be preventing healing and talked about possible referral to Vascular surgery to do CTA runoff. Also discussed surgical procedure proposed by podiatry to shave exostosis of bone that is likely causing ulcer and he declines at this time. Off-loading: The patient was instructed to avoid pressure and friction on the affected areas. Reposition every 2 hours at minimum. Avoid prolonged standing and/or dangling of legs. When seated, feet should be elevated at chest level. Frequent ambulation is encouraged. Diet: Patient encouraged to increase protein intake while taking caution to avoid high carbohydrate and/or sugar intake. Labs/cultures/imaging: Wound culture positive 03/27/23 and is currently on Dox ycycline. Wound culture showed Staph and Strep and he was treated with Keflex based on sensitivities and use topical Gentamicin for 3 weeks. Wound culture done 09/18/23 was positive for staph epidermidis. He has been on cephalexin and doxycycline. Wound culture was positive for Enterococcus and Linezolid completed. Wound culture was positive and he will continue Flagyl, Cipro and hold cefdinir and decrease doxycycline to once/day. His put him back on Keflex and doxycycline when his ulcer worsened over . Wound culture on 04/29/24 was positive for Staph epidermidis and he completed Linezolid and is back to taking chronic doxycyline and on Bactrim. Wound culture taken showed Corynebacterium and we discussed starting him on a different antibiotic. XR of foot was negative. MRI negative for osteomyelitis and arterial testing negative for arterial insufficiency. Repeat XR of foot was negative. XR ordered again today to r/o osteomyelitis Follow-up: Return in 1 week for wound care follow up. Return sooner or report to the emergency room should symptoms worsen, or new symptoms arise. Note: [employer] speech recognition certified medicine aide software was used to create portions of this document. Sound-alike and misspelled words, as well as other certified medicine aide errors may be contained in the documentation.
== END 2024-08-22 23:59 | disposition home or self-care (01) ==
LOC: WC 10:15
PROVIDERS: PCP Family Medicine; Referring Provider Family Medicine; Visit Provider Family Medicine
DX: E11.621 Type 2 diabetes mellitus with foot ulcer (principal); L97.422 Non-pressure chronic ulcer of left heel and midfoot with fat layer exposed; L84 Corns and callosities; I10 Essential (primary) hypertension; L02.612 Cutaneous abscess of left foot; Z79.899 Other long term (current) drug therapy
CPT/HCPCS: 11042; 73660; 87070; 87075; 87077; 87205

== ENCOUNTER 2024-09-16 10:30 | Outpatient (RCR) | payer BC, SELFPAY ==
[2024-08-23 00:28] VITALS: BP 126/60; PULSE 73; RESP 16; TEMP 36.1
[2024-08-26 10:15] VITALS: BP 120/47; PULSE 74; RESP 16; TEMP 36.5
--- NOTE | 2024-08-26 12:23 | PN.PCM_ITS ---
History of Present Illness Date of Service: 08/26/24 Chief Complaint: nonhealing wound left plantar foot History of Wound: Jose J is a 68 y/o gentleman that presents to the wound healing center for evaluation and treatment of a wound to his left plantar foot. He is a patient of Dr. Giordano. He has had a wound to this same area in February 2019 and was seen at [facility] and treated there for 9 weeks with Aquacel and was placed in a wedge shoe to offload his foot. He was treated for this same wound for almost a year at this wound center and was healed in May 2020 and returned in July and was treated until September. He had undergone vascular testing at [facility] in 2018 and this has been repeated 09/2023 without significant arterial disease. 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 He and his did not want to do surgery. He has managed to do well over the last 2 years until the end of October when the area became painful again and began draining. He saw Dr. Giordano and was treated with doxycycline which helped and they had been applying Aquacel that they had from previous treatment but it has not improved. He was treated with a second course of doxycycline and then referred here for treatment. He is still working and walking on his foot in a steel toe boot 4 days a week for 10 hours. He had an offloading pad in his work boot previously but no longer has this in place. He denies claudication with walking. He has moderate to heavy drainage from the ulcer. He has not had any wound cultures taken. 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 He denies fever, chill, nausea, vomiting, redness or odor. Subjective Subjective Jose J returns today for follow up of an ulcer on the bottom of his left foot. His ulcer and drainage are relatively unchanged since last visit. He continues to wear his modified work boot to alleviate pressure to the site of the ulcer of his left foot. He has been tolerating the Aquacel Extra to the ulcer. His most recent wound culture was positive for Corynebacterium striatum and negative for anaerobic bacteria. He is on Bactrim DS and doxycycline. He denies fever, chills or odor. He had MRI on 10/02/23 which did not show any osteomyelitis of his foot. Arterial testing was also done and did not show any evidence of arterial insufficiency. HgbA1C was 6.5% on 10/09/23. Objective Data Objective Data Vital Signs: Vital Signs Temp Pulse Resp BP O2 Del Method 97.7 F L 74 16 120/47 L Room Air 08/26/24 10:15 08/26/24 10:15 08/26/24 10:15 08/26/24 10:15 08/26/24 10:15 Oxygen Delivery Method Room Air Physical Exam Const alert, oriented x3 and no apparent distress General Appearance: cooperative and comfortable HEENT normocephalic and head/scalp atraumatic Resp normal respiratory effort Effort and Inspection: able to speak in complete sentences Auscultation: rales, rhonchi and diminished lung sounds Cardio regular rate and regular rhythm Skin Wounds: wounds noted Wound Narrative: as in clinical panel, mild callus formation surrounding ulcer, no cellulitis or odor Psych mental status grossly normal, thought process normal, cooperative and affect normal Debridement Note Debridement Note Wound debrided: left lateral plantar ulcer Laterality: Left Wound Grade/Stage: Luther grade 1 Type of Debridement: Excisional debridement Anesthesia Used: 5% Lidocaine Gel Depth: Down to and including healthy tissue and in the subcutaneous layer Percentage of wound debrided: 100 Instrument Used: 3mm curette and Forceps Tissue Removed: Yellow slough, devitalized tissue Severity: Fat Layer Exposed Amount of bleeding with debridement: Mild Bleeding Controlled with: Pressure Patient tolerated procedure: Patient tolerated procedure well Post-Debridement Measurements and Additional Note: Post-Debridement Measurements/Treatment - Nurse 1 - General Ulcer Assessment Start: 08/26/24 10:15 Freq: Status: Active Protocol: [email or web address].[email or web address] Activity Type Activity Date Activity User E-sign Co-sign Detail Recorded Client Recorded Date Recorded By Document 08/26/24 10:15 NCIOLÁS [id number] 08/26/24 10:19 NICOLÁS 08/26/24 10:15 - Today's Visit Information Type of service Follow-up Visit (Physician/AUTOMATIC PRESSER ) Arrival Mode Ambulatory Accompanied by Patient Identification Verified (Name & Yes ) Vital Signs Temperature (97.8 F-99.1 F) 97.7 F L Temperature Source Temporal Pulse Rate (60-100) 74 Pulse Location Monitor Respiratory Rate (12-18) 16 Respiratory rate source Observation Oxygen Delivery Method Room Air Blood Pressure (90/60-120/80) 120/47 L Blood Pressure Mean (mm Hg) 71 Source Monitor Position Semi-Fowlers Blood Pressure Location Left Arm History Since Last Visit- (Skip if this is Patient's initial visit) Have you changed medications since your No last visit? Any new allergies or adverse reactions No Had a fall/change in ADL's that may No increase risk of falls Signs or symptoms of abuse and/or No neglect since last visit Have you been in the hospital since your No last visit? Has dressing in place as prescribed Yes Has compression in place as prescribed N/A Has offloadiing in place as prescribed N/A Experienced any changes in pain level or No management Left Footwear Regular Shoe Right Footwear Regular Shoe Pain Scale: 0-10 Numeric Is Patient Pain Free? Yes WC - Nurse 1 - General Ulcer Measurement Start: 08/26/24 10:15 Freq: Status: Active Protocol: Activity Type Activity Date Activity User E-sign Co-sign Detail Recorded Client Recorded Date Recorded By Document 08/26/24 10:15 KW [id number] 08/26/24 10:19 KW 08/26/24 10:15 Wound Center Nurse 1 #3 L Lateral Plantar Foot -Current Size (cm) - Length 3 -Current Size (cm) - Width 0.7 -Current Size (cm) - Depth 0.2 -Total Square Cm 2.1 -Date of Last Picture (Recall this 08/26/24 field) -Exudate Amt Small -Exudate Type Serosanguineous -Wound Margin Distinct, Outline Attached -Granulation Amt Large (67-100%) -Granulation Quality Red -Texture (Flory-wound Skin Appearance) Assessed -Moisture (Flory-wound Skin Appearance) Assessed -Color (Flory-wound Skin Appearance) Assessed -Temperature (Flory-wound Skin No Abnormality Appearance) (Pt Warm) -Tenderness on Palpation (Flory-wound No Skin Appearance) -Ulcer Cleansing Rinsed/ Irrigated with Saline -Foul Odor after Cleansing No -Anesthetic Used 5% Lidocaine Gel WC - Nurse 2 - General Ulcer CM Notes Start: 08/26/24 10:15 Freq: Status: Active Protocol: Activity Type Activity Date Activity User E-sign Co-sign Detail Recorded Client Recorded Date Recorded By Document 08/26/24 10:38 DS [id number] 08/26/24 10:50 DS 08/26/24 10:38 Wound Center Nurse 2 -Time 10:38 -Correct Patient Yes -Correct Side, Site, Position Yes -Correct Procedure Yes -Procedure Performed Yes -Type of Procedure Debridement -Clinical Debridement Subcutaneous -Tissue Removed Subcutaneous -Post Debridement (cm) - Length 2.9 -Post Debridement (cm) - Width 1.4 -Post Debridement (cm) - Depth 0.2 -Total Square (Post) (cm) 4.06 -Area of Debridement (cm) - Length 2.9 -Area of Debridement (cm) - Width 1.4 -Total Square (Area) (cm) 4.06 -Tunneling No -Undermining/Tunneling No -Circular Undermining No -Wound/Ulcer Outcome Not Healed -Ulcer Cleansing Rinsed/ Irrigated with Saline -Foul Odor after Cleansing No -Bioengineered Tissue No -Bleeding Controlled with Pressure -Treatment Response Procedure Tolerated Well -Debridement - Subq, 1st 20sq cm Yes Pain Scale: 0-10 Numeric Is Patient Pain Free? Yes - Nurse 3 - General Ulcer D/C NN Start: 08/26/24 10:15 Freq: Status: Active Protocol: Activity Type Activity Date Activity User E-sign Co-sign Detail Recorded Client Recorded Date Recorded By Document 08/26/24 11:12 RB [id number] 08/26/24 11:13 RB 08/26/24 11:12 Wound Care Center Nurse 3 #3 L Lateral Plantar Foot -Ulcer Cleansing Rinsed/ Irrigated with Saline -Primary Dressing Applied Aquacel Extra -Primary Dressing Covered/Secured with Dry Gauze & Roll Gauze, Secured with Tape -Aquacel Extra 1 Treatment Response Procedure Tolerated Well Pain Scale: 0-10 Numeric Is Patient Pain Free? Yes WC - Visit Discharge Discharge Condition Stable Ambulatory Status Ambulatory Transportation Private Auto Accompanied by Medication Reconcilliation completed & No provided to patient/care provider Clinical Summary of Care Provided Yes Assessment/Plan Assessment/Plan (1) Delayed wound healing: CODE(S): T14.8XXD - Other injury of unspecified body region, subsequent encounter (2) Chronic ulcer of left foot with fat layer exposed: CODE(S): L97.522 - Non-pressure chronic ulcer of other part of left foot with fat layer exposed (3) HTN (hypertension): CODE(S): I10 - Essential (primary) hypertension QUALIFIERS: Hypertension type: primary hypertension Qualified Code(s): I10 - Essential (primary) hypertension (4) Diabetic ulcer of foot associated with diabetes mellitus due to underlying condition, with fat layer exposed: CODE(S): E08.621 - Diabetes mellitus due to underlying condition with foot ulcer; L97.502 - Non-pressure chronic ulcer of other part of unspecified foot with fat layer exposed QUALIFIERS: Diabetic foot ulcer location: midfoot Laterality: left Qualified Code(s): E08.621 - Diabetes mellitus due to underlying condition with foot ulcer; L97.422 - Non-pressure chronic ulcer of left heel and midfoot with fat layer exposed (5) Type 2 diabetes mellitus without complications: CODE(S): E11.9 - Type 2 diabetes mellitus without complications QUALIFIERS: Diabetes mellitus exterminator termite insulin use: without half-way 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 It has been stable since his last visit but callus formation is still present. I suspect noncompliance of offloading to be a major factor in his delayed healing. At home wound-care instructions: Wash ulcer daily with antibacterial soap and water. Will have him continue to use Aquacel Extra to ulcer and cover with gauze and roll gauze to secure daily. Keep dressing clean and dry. His work boot was modified on 07/03/23 and again 12/25/23 to try to offload pressure. He will retire September 22, 2024. Will have him use single layer tubigrip medium compression to left LE. He reports increased swelling in his ankle and leg when wearing the tubigrip compression so has stopped wearing. Discussed possibly using TCC for offloading in near future but he is unable to do so due to work. We also discussed that there may be a single vessel narrowing that could be preventing healing and talked about possible referral to Vascular surgery to do CTA runoff. Also discussed surgical procedure proposed by podiatry to shave exostosis of bone that is likely causing ulcer and he declines at this time. Off-loading: The patient was instructed to avoid pressure and friction on the affected areas. Reposition every 2 hours at minimum. Avoid prolonged standing and/or dangling of legs. When seated, feet should be elevated at chest level. Frequent ambulation is encouraged. Diet: Patient encouraged to increase protein intake while taking caution to avoid high carbohydrate and/or sugar intake. Labs/cultures/imaging: Wound culture positive 03/27/23 and is currently on Doxycycline. Wound culture showed Staph and Strep and he was treated with Keflex based on sensitivities and use topical Gentamicin for 3 weeks. Wound culture done 09/18/23 was positive for staph epidermidis. He has been on cephalexin and doxycycline. Wound culture was positive for Enterococcus and Linezolid completed. Wound culture was positive and he will continue Flagyl, Cipro and hold cefdinir and decrease doxycycline to once/day. His put him back on Keflex and doxycycline when his ulcer worsened over . Wound culture on 04/29/24 was positive for Staph epidermidis and he completed Linezolid and is back to taking chronic doxycyline and on Bactrim. Wound culture taken showed Corynebacterium and we discussed starting him on a different antibiotic. XR of foot was negative. MRI negative for osteomyelitis and arterial testing negative for arterial insufficiency. Repeat XR of foot was negative. XR ordered again to r/o osteomyelitis and was negative. Follow-up: Return in 1 week for wound care follow up. Return sooner or report to the emergency room should symptoms worsen, or new symptoms arise. Note: [employer] speech recognition dough catcher software was used to create portions of this document. Sound-alike and misspelled words, as well as other dough catcher errors may be contained in the documentation.
--- NOTE | 2024-08-29 08:27 | WC ---
PHOTO 08/26/24 RLE
--- NOTE | 2024-08-29 08:28 | WC ---
PHOTO 08/26/24 RLE
--- NOTE | 2024-08-29 08:30 | WC ---
PHOTO 08/26/24 YAZMIN
--- NOTE | 2024-08-29 08:31 | WC ---
PHOTO 08/26/24 YAZMIN
--- NOTE | 2024-08-29 08:33 | WC ---
PHOTO 08/26/24 LEFT LATERAL PLANTAR
[2024-09-02 10:16] VITALS: BP 135/55; PULSE 75; RESP 18; TEMP 36.3
--- NOTE | 2024-09-02 13:12 | PN.PCM_ITS ---
History of Present Illness Date of Service: 09/02/24 Chief Complaint: nonhealing wound left plantar foot History of Wound: Jose J is a 68 y/o gentleman that presents to the wound healing center for evaluation and treatment of a wound to his left plantar foot. He is a patient of Dr. Giordano. He has had a wound to this same area in February 2019 and was seen at [facility] [place] and treated there for 9 weeks with Aquacel and was placed in a wedge shoe to offload his foot. He was treated for this same wound for almost a year at this wound center and was healed in May 2020 and returned in July and was treated until September. He had undergone vascular testing at [facility] in 2018 and this has been repeated 09/2023 without significant arterial disease. 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 He and his did not want to do surgery. He has managed to do well over the last 2 years until the end of October when the area became painful again and began draining. He saw Dr. Giordano and was treated with doxycycline which helped and they had been applying Aquacel that they had from previous treatment but it has not improved. He was treated with a second course of doxycycline and then referred here for treatment. He is still working and walking on his foot in a steel toe boot 4 days a week for 10 hours. He had an offloading pad in his work boot previously but no longer has this in place. He denies claudication with walking. He has moderate to heavy drainage from the ulcer. He has not had any wound cultures taken. 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 He denies fever, chill, nausea, vomiting, redness or odor. Subjective Subjective Jose J returns today for follow up of an ulcer on the bottom of his left foot. His ulcer and drainage are relatively unchanged since last visit. He continues to wear his modified work boot to alleviate pressure to the site of the ulcer of his left foot. He has been tolerating the Aquacel Extra to the ulcer. His most recent wound culture was positive for Corynebacterium striatum and negative for anaerobic bacteria. He is on Bactrim DS and doxycycline. He denies fever, chills or odor. He had MRI on 10/02/23 which did not show any osteomyelitis of his foot. Arterial testing was also done and did not show any evidence of arterial insufficiency. HgbA1C was 6.5% on 10/09/23. Objective Data Objective Data Vital Signs: Vital Signs Temp Pulse Resp BP O2 Del Method 97.4 F L 75 18 135/55 H Room Air 09/02/24 10:16 09/02/24 10:16 09/02/24 10:16 09/02/24 10:16 09/02/24 10:16 Oxygen Delivery Method Room Air Physical Exam Const alert, oriented x3 and no apparent distress General Appearance: cooperative and comfortable HEENT normocephalic and head/scalp atraumatic Resp normal respiratory effort Effort and Inspection: able to speak in complete sentences Auscultation: rales, rhonchi and diminished lung sounds Cardio regular rate and regular rhythm Skin Wounds: wounds noted Wound Narrative: as in clinical panel, mild callus formation surrounding ulcer, no cellulitis or odor Psych mental status grossly normal, thought process normal, cooperative and affect normal Debridement Note Debridement Note Wound debrided: left lateral plantar ulcer Laterality: Left Wound Grade/Stage: Luther grade 1 Type of Debridement: Excisional debridement Anesthesia Used: 5% Lidocaine Gel Depth: Down to and including healthy tissue and in the subcutaneous layer Percentage of wound debrided: 100 Instrument Used: 3mm curette and Forceps Tissue Removed: Yellow slough, devitalized tissue Severity: Fat Layer Exposed Amount of bleeding with debridement: Mild Bleeding Controlled with: Pressure Patient tolerated procedure: Patient tolerated procedure well Post-Debridement Measurements and Additional Note: Post-Debridement Measurements/Treatment - Nurse 1 - General Ulcer Assessment Start: 08/26/24 10:15 Freq: Status: Active Protocol: QUOC.AMADA Activity Type Activity Date Activity User E-sign Co-sign Detail Recorded Client Recorded Date Recorded By Document 08/26/24 10:15 KW [id number] 08/26/24 10:19 KW Document 09/02/24 10:16 KW [id number] 09/02/24 10:22 KW 08/26/24 09/02/24 10:15 10:16 - Today's Visit Information Type of service Follow-up Visit Follow-up Visit (Physician/LAST MARKER (Physician/LAST MARKER ) ) Arrival Mode Ambulatory Ambulatory Accompanied by Patient Identification Verified (Name & Yes Yes ) Vital Signs Temperature (97.8 F-99.1 F) 97.7 F L 97.4 F L Temperature Source Temporal Temporal Pulse Rate (60-100) 74 75 Pulse Location Monitor Monitor Respiratory Rate (12-18) 16 18 Respiratory rate source Observation Observation Oxygen Delivery Method Room Air Room Air Blood Pressure (90/60-120/80) 120/47 L 135/55 H Blood Pressure Mean (mm Hg) 71 81 Source Monitor Monitor Position Semi-Fowlers Sitting Blood Pressure Location Left Arm Right Arm History Since Last Visit- (Skip if this is Patient's initial visit) Have you changed medications since your No No last visit? Any new allergies or adverse reactions No No Had a fall/change in ADL's that may No No increase risk of falls Signs or symptoms of abuse and/or No No neglect since last visit Have you been in the hospital since your No No last visit? Has dressing in place as prescribed Yes Yes Has compression in place as prescribed N/A N/A Has offloadiing in place as prescribed N/A N/A Experienced any changes in pain level or No No management Left Footwear Regular Shoe Regular Shoe Right Footwear Regular Shoe Regular Shoe Pain Scale: 0-10 Numeric Is Patient Pain Free? Yes Yes WC - Nurse 1 - General Ulcer Measurement Start: 08/26/24 10:15 Freq: Status: Active Protocol: Activity Type Activity Date Activity User E-sign Co-sign Detail Recorded Client Recorded Date Recorded By Document 08/26/24 10:15 KW [id number] 08/26/24 10:19 KW Document 09/02/24 10:16 KW [id number] 09/02/24 10:22 KW 08/26/24 09/02/24 10:15 10:16 Wound Center Nurse 1 #3 L Lateral Plantar Foot -Current Size (cm) - Length 3 2.2 -Current Size (cm) - Width 0.7 1 -Current Size (cm) - Depth 0.2 0.1 -Total Square Cm 2.1 2.2 -Date of Last Picture (Recall this 08/26/24 09/02/24 field) -Exudate Amt Small Small -Exudate Type Serosanguineous Serosanguineous -Wound Margin Distinct, Distinct, Outline Outline Attached Attached -Granulation Amt Large (67-100%) Large (67-100%) -Granulation Quality Red [place] -Texture (Flory-wound Skin Appearance) Assessed Assessed,Callus -Moisture (Flory-wound Skin Appearance) Assessed Assessed -Color (Flory-wound Skin Appearance) Assessed Assessed -Temperature (Flory-wound Skin No Abnormality No Abnormality Appearance) (Pt Warm) (Pt Warm) -Tenderness on Palpation (Flory-wound No No Skin Appearance) -Ulcer Cleansing Rinsed/ Rinsed/ Irrigated with Irrigated with Saline Saline -Foul Odor after Cleansing No No -Anesthetic Used 5% Lidocaine 5% Lidocaine Gel Gel WC - Nurse 2 - General Ulcer CM Notes Start: 08/26/24 10:15 Freq: Status: Active Protocol: Activity Type Activity Date Activity User E-sign Co-sign Detail Recorded Client Recorded Date Recorded By Document 08/26/24 10:38 DS [id number] 08/26/24 10:50 DS Document 09/02/24 11:17 GM [id number] 09/02/24 11:26 GM 08/26/24 09/02/24 10:38 11:17 Wound Center Nurse 2 #3 L Lateral Plantar Foot -Time 10:38 11:17 -Correct Patient Yes Yes -Correct Side, Site, Position Yes Yes -Correct Procedure Yes Yes -Procedure Performed Yes Yes -Type of Procedure Debridement Debridement -Clinical Debridement Subcutaneous Subcutaneous -Tissue Removed Subcutaneous Subcutaneous -Post Debridement (cm) - Length 2.9 2.5 -Post Debridement (cm) - Width 1.4 0.8 -Post Debridement (cm) - Depth 0.2 0.2 -Total Square (Post) (cm) 4.06 2.00 -Area of Debridement (cm) - Length 2.9 2.5 -Area of Debridement (cm) - Width 1.4 0.8 -Total Square (Area) (cm) 4.06 2.00 -Tunneling No No -Undermining/Tunneling No No -Circular Undermining No No -Wound/Ulcer Outcome Not Healed Not Healed -Ulcer Cleansing Rinsed/ Rinsed/ Irrigated with Irrigated with Saline Saline -Foul Odor after Cleansing No No -Bioengineered Tissue No No -Bleeding Controlled with Pressure Pressure -Treatment Response Procedure Procedure Tolerated Well Tolerated Well -Offloading No -Debridement - Subq, 1st 20sq cm Yes Yes Pain Scale: 0-10 Numeric Is Patient Pain Free? Yes Yes - Nurse 3 - General Ulcer D/C NN Start: 08/26/24 10:15 Freq: Status: Active Protocol: Activity Type Activity Date Activity User E-sign Co-sign Detail Recorded Client Recorded Date Recorded By Document 08/26/24 11:12 RB [id number] 08/26/24 11:13 RB Document 09/02/24 12:01 KW [id number] 09/02/24 12:01 KW 08/26/24 09/02/24 11:12 12:01 Wound Care Center Nurse 3 #3 L Lateral Plantar Foot -Ulcer Cleansing Rinsed/ Irrigated with Saline -Primary Dressing Applied Aquacel Extra Aquacel Extra -Primary Dressing Covered/Secured with Dry Gauze & Dry Gauze & Roll Gauze, Roll Gauze, Secured with Secured with Tape Tape -Aquacel Extra 1 1 Treatment Response Procedure Tolerated Well Pain Scale: 0-10 Numeric Is Patient Pain Free? Yes Yes WC - Visit Discharge Discharge Condition Stable Stable Ambulatory Status Ambulatory Ambulatory Transportation Private Auto Private Auto Accompanied by Medication Reconcilliation completed & No No provided to patient/care provider Clinical Summary of Care Provided Yes Yes Assessment/Plan Assessment/Plan (1) Delayed wound healing: CODE(S): T14.8XXD - Other injury of unspecified body region, subsequent encounter (2) Chronic ulcer of left foot with fat layer exposed: CODE(S): L97.522 - Non-pressure chronic ulcer of other part of left foot with fat layer exposed (3) HTN (hypertension): CODE(S): I10 - Essential (primary) hypertension QUALIFIERS: Hypertension type: primary hypertension Qualified Code(s): I10 - Essential (primary) hypertension (4) Diabetic ulcer of foot associated with diabetes mellitus due to underlying condition, with fat layer exposed: CODE(S): E08.621 - Diabetes mellitus due to underlying condition with foot ulcer; L97.502 - Non-pressure chronic ulcer of other part of unspecified foot with fat layer exposed QUALIFIERS: Diabetic foot ulcer location: midfoot Laterality: left Qualified Code(s): E08.621 - Diabetes mellitus due to underlying condition with foot ulcer; L97.422 - Non-pressure chronic ulcer of left heel and midfoot with fat layer exposed (5) Type 2 diabetes mellitus without complications: CODE(S): E11.9 - Type 2 diabetes mellitus without complications QUALIFIERS: Diabetes mellitus joint terminal attack controller insulin use: without senior living 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 It has been stable since his last visit but callus formation is still present. I suspect noncompliance of offloading to be a major factor in his delayed healing. At home wound-care instructions: Wash ulcer daily with antibacterial soap and water. Will have him continue to use Aquacel Extra to ulcer and cover with gauze and roll gauze to secure daily. Keep dressing clean and dry. His work boot was modified on 07/03/23 and again 12/25/23 to try to offload pressure. He will retire September 22, 2024. Will have him use single layer tubigrip medium compression to left LE. He reports increased swelling in his ankle and leg when wearing the tubigrip compression so has stopped wearing. Discussed possibly using TCC for offloading in near future but he is unable to do so due to work. We also discussed that there may be a single vessel narrowing that could be preventing healing and talked about possible referral to Vascular surgery to do CTA runoff. Also discussed surgical procedure proposed by podiatry to shave exostosis of bone that is likely causing ulcer and he declines at this time. Off-loading: The patient was instructed to avoid pressure and friction on the affected areas. Reposition every 2 hours at minimum. Avoid prolonged standing and/or dangling of legs. When seated, feet should be elevated at chest level. Frequent ambulation is encouraged. Diet: Patient encouraged to increase protein intake while taking caution to avoid high carbohydrate and/or sugar intake. Labs/cultures/imaging: Wound culture positive 03/27/23 and is currently on Doxycycline. Wound culture showed Staph and Strep and he was treated with Keflex based on sensitivities and use topical Gentamicin for 3 weeks. Wound culture done 09/18/23 was positive for staph epidermidis. He has been on cephalexin and doxycycline. Wound culture was positive for Enterococcus and Linezolid completed. Wound culture was positive and he will continue Flagyl, Cipro and hold cefdinir and decrease doxycycline to once/day. His put him back on Keflex and doxycycline when his ulcer worsened over . Wound culture on 04/29/24 was positive for Staph epidermidis and he completed Linezolid and is back to taking chronic doxycyline and on Bactrim. Wound culture taken showed Corynebacterium and we discussed starting him on Augmentin but are hesitant to do this because of a PCN allergy that he reports as a child but he does not recall the reaction. XR of foot was negative. MRI negative for osteomyelitis and arterial testing negative for arterial insufficiency. Repeat XR of foot was negative. XR ordered again to r/o osteomyelitis and was negative. Follow-up: Return in 1 week for wound care follow up. Return sooner or report to the emergency room should symptoms worsen, or new symptoms arise. Note: [employer] speech recognition induction coordination engineer software was used to create portions of this document. Sound-alike and misspelled words, as well as other induction coordination engineer errors may be contained in the documentation.
--- NOTE | 2024-09-05 14:45 | WC ---
PHOTO 09/02/24 LEFT LATERAL PLANTAR FOOT
[2024-09-09 10:33] VITALS: BP 119/56; PULSE 71; RESP 18; TEMP 36.3
--- NOTE | 2024-09-09 15:08 | PN.PCM_ITS ---
History of Present Illness Date of Service: 09/09/24 Chief Complaint: nonhealing wound left plantar foot History of Wound: Jose J is a 68 y/o gentleman that presents to the wound healing center for evaluation and treatment of a wound to his left plantar foot. He is a patient of Dr. Giordano. He has had a wound to this same area in February 2019 and was seen at [facility] [place] and treated there for 9 weeks with Aquacel and was placed in a wedge shoe to offload his foot. He was treated for this same wound for almost a year at this wound center and was healed in May 2020 and returned in July and was treated until September. He had undergone vascular testing at [facility] in 2018 and this has been repeated 09/2023 without significant arterial disease. 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 He and his did not want to do surgery. He has managed to do well over the last 2 years until the end of October when the area became painful again and began draining. He saw Dr. Giordano and was treated with doxycycline which helped and they had been applying Aquacel that they had from previous treatment but it has not improved. He was treated with a second course of doxycycline and then referred here for treatment. He is still working and walking on his foot in a steel toe boot 4 days a week for 10 hours. He had an offloading pad in his work boot previously but no longer has this in place. He denies claudication with walking. He has moderate to heavy drainage from the ulcer. He has not had any wound cultures taken. 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 He denies fever, chill, nausea, vomiting, redness or odor. Subjective Subjective Jose J returns today for follow up of an ulcer on the bottom of his left foot. His ulcer and drainage are relatively unchanged since last visit. He continues to wear his modified work boot to alleviate pressure to the site of the ulcer of his left foot. He has been tolerating the Aquacel Extra to the ulcer. His most recent wound culture was positive for Corynebacterium striatum and negative for anaerobic bacteria. He is on Bactrim DS and doxycycline. He denies fever, chills or odor. He had MRI on 10/02/23 which did not show any osteomyelitis of his foot. Arterial testing was also done and did not show any evidence of arterial insufficiency. HgbA1C was 6.5% on 10/09/23. Objective Data Objective Data Vital Signs: Vital Signs Temp Pulse Resp BP O2 Del Method 97.4 F L 71 18 119/56 L Room Air 09/09/24 10:33 09/09/24 10:33 09/09/24 10:33 09/09/24 10:33 09/02/24 10:16 Oxygen Delivery Method Room Air Physical Exam Const alert, oriented x3 and no apparent distress General Appearance: cooperative and comfortable HEENT normocephalic and head/scalp atraumatic Resp normal respiratory effort Effort and Inspection: able to speak in complete sentences Auscultation: rales, rhonchi and diminished lung sounds Cardio regular rate and regular rhythm Skin Wounds: wounds noted Wound Narrative: as in clinical panel, mild callus formation surrounding ulcer, no cellulitis or odor Psych mental status grossly normal, thought process normal, cooperative and affect normal Debridement Note Debridement Note Wound debrided: left lateral plantar ulcer Laterality: Left Wound Grade/Stage: Luther grade 1 Type of Debridement: Excisional debridement Anesthesia Used: 5% Lidocaine Gel Depth: Down to and including healthy tissue and in the subcutaneous layer Percentage of wound debrided: 100 Instrument Used: 3mm curette and Forceps Tissue Removed: Yellow slough, devitalized tissue Severity: Fat Layer Exposed Amount of bleeding with debridement: Mild Bleeding Controlled with: Pressure Patient tolerated procedure: Patient tolerated procedure well Post-Debridement Measurements and Additional Note: Post-Debridement Measurements/Treatment - Nurse 1 - General Ulcer Assessment Start: 08/26/24 10:15 Freq: Status: Active Protocol: QUOC.AMADA Activity Type Activity Date Activity User E-sign Co-sign Detail Recorded Client Recorded Date Recorded By Document 08/26/24 10:15 KW [id number] 08/26/24 10:19 KW Document 09/02/24 10:16 KW [id number] 09/02/24 10:22 KW Document 09/09/24 10:33 RB [id number] 09/09/24 10:35 RB 08/26/24 09/02/24 09/09/24 10:15 10:16 10:33 - Today's Visit Information Type of service Follow-up Visit Follow-up Visit Follow-up Visit (Physician/PAVER INSTALLER (Physician/PAVER INSTALLER (Physician/PAVER INSTALLER ) ) ) Arrival Mode Ambulatory Ambulatory Ambulatory Transfer Assistance None Accompanied by Patient Identification Verified (Name & Yes Yes Yes ) Patient Requires Transmission-Based No Precautions Vital Signs Temperature (97.8 F-99.1 F) 97.7 F L 97.4 F L 97.4 F L Temperature Source Temporal Temporal Temporal Pulse Rate (60-100) 74 75 71 Pulse Location Monitor Monitor Monitor Respiratory Rate (12-18) 16 18 18 Respiratory rate source Observation Observation Observation Oxygen Delivery Method Room Air Room Air Blood Pressure (90/60-120/80) 120/47 L 135/55 H 119/56 L Blood Pressure Mean (mm Hg) 71 81 77 Source Monitor Monitor Monitor Position Semi-Fowlers Sitting Semi-Fowlers Blood Pressure Location Left Arm Right Arm Left Arm History Since Last Visit- (Skip if this is Patient's initial visit) Have you changed medications since your No No No last visit? Any new allergies or adverse reactions No No No Had a fall/change in ADL's that may No No No increase risk of falls Signs or symptoms of abuse and/or No No No neglect since last visit Have you been in the hospital since your No No No last visit? Has dressing in place as prescribed Yes Yes Yes Has compression in place as prescribed N/A N/A N/A Has offloadiing in place as prescribed N/A N/A Yes Experienced any changes in pain level or No No No management Left Footwear Regular Shoe Regular Shoe Regular Shoe Right Footwear Regular Shoe Regular Shoe Regular Shoe Pain Scale: 0-10 Numeric Is Patient Pain Free? Yes Yes Yes - Nurse 1 - General Ulcer Measurement Start: 08/26/24 10:15 Freq: Status: Active Protocol: Activity Type Activity Date Activity User E-sign Co-sign Detail Recorded Client Recorded Date Recorded By Document 08/26/24 10:15 KW [id number] 08/26/24 10:19 KW Document 09/02/24 10:16 KW [id number] 09/02/24 10:22 KW Document 09/09/24 10:33 RB [id number] 09/09/24 10:35 RB 08/26/24 09/02/24 09/09/24 10:15 10:16 10:33 Wound Center Nurse 1 #3 L Lateral Plantar Foot -Combined with other wound No -Current Size (cm) - Length 3 2.2 1 -Current Size (cm) - Width 0.7 1 0.7 -Current Size (cm) - Depth 0.2 0.1 0.1 -Total Square Cm 2.1 2.2 0.7 -Date of Last Picture (Recall this 08/26/24 09/02/24 field) -Photo Taken Yes -Tunneling No -Undermining/Tunneling No -Circular Undermining No -Exudate Amt Small Small Medium -Exudate Type Serosanguineous Serosanguineous Serosanguineous -Wound Margin Distinct, Distinct, Distinct, Outline Outline Outline Attached Attached Attached -Granulation Amt Large (67-100%) Large (67-100%) Medium (34-66%) -Granulation Quality Red [place] -Slough/Fibrin Yes -Necrosis Amt Medium (34-66%) -Necrotic Tissue Type Adherent Slough -Structure Exposed N/A -Texture (Flory-wound Skin Appearance) Assessed Assessed,Callus Assessed,Callus -Moisture (Flory-wound Skin Appearance) Assessed Assessed Assessed -Color (Flory-wound Skin Appearance) Assessed Assessed Assessed -Temperature (Flory-wound Skin No Abnormality No Abnormality No Abnormality Appearance) (Pt Warm) (Pt Warm) (Pt Warm) -Tenderness on Palpation (Flory-wound No No No Skin Appearance) -Ulcer Cleansing Rinsed/ Rinsed/ Wound Cleanser Irrigated with Irrigated with Saline Saline -Foul Odor after Cleansing No No No -Anesthetic Used 5% Lidocaine 5% Lidocaine 5% Lidocaine Gel Gel Gel WC - Nurse 2 - General Ulcer CM Notes Start: 08/26/24 10:15 Freq: Status: Active Protocol: Activity Type Activity Date Activity User E-sign Co-sign Detail Recorded Client Recorded Date Recorded By Document 08/26/24 10:38 DS [id number] 08/26/24 10:50 DS Document 09/02/24 11:17 GM [id number] 09/02/24 11:26 GM Document 09/09/24 11:19 GM [id number] 09/09/24 11:30 GM 08/26/24 09/02/24 09/09/24 10:38 11:17 11:19 Wound Center Nurse 2 #3 L Lateral Plantar Foot -Time 10:38 11:17 11:19 -Correct Patient Yes Yes Yes -Correct Side, Site, Position Yes Yes Yes -Correct Procedure Yes Yes Yes -Procedure Performed Yes Yes Yes -Type of Procedure Debridement Debridement Debridement -Clinical Debridement Subcutaneous Subcutaneous Subcutaneous -Tissue Removed Subcutaneous Subcutaneous Subcutaneous -Post Debridement (cm) - Length 2.9 2.5 2.8 -Post Debridement (cm) - Width 1.4 0.8 1.0 -Post Debridement (cm) - Depth 0.2 0.2 0.2 -Total Square (Post) (cm) 4.06 2.00 2.80 -Area of Debridement (cm) - Length 2.9 2.5 2.8 -Area of Debridement (cm) - Width 1.4 0.8 1.0 -Total Square (Area) (cm) 4.06 2.00 2.80 -Tunneling No No No -Undermining/Tunneling No No No -Circular Undermining No No No -Wound/Ulcer Outcome Not Healed Not Healed Not Healed -Ulcer Cleansing Rinsed/ Rinsed/ Rinsed/ Irrigated with Irrigated with Irrigated with Saline Saline Saline -Foul Odor after Cleansing No No No -Bioengineered Tissue No No No -Bleeding Controlled with Pressure Pressure Pressure -Treatment Response Procedure Procedure Procedure Tolerated Well Tolerated Well Tolerated Well -Offloading No No -Debridement - Subq, 1st 20sq cm Yes Yes Yes Pain Scale: 0-10 Numeric Is Patient Pain Free? Yes Yes Yes WC - Nurse 3 - General Ulcer D/C NN Start: 08/26/24 10:15 Freq: Status: Active Protocol: Activity Type Activity Date Activity User E-sign Co-sign Detail Recorded Client Recorded Date Recorded By Document 08/26/24 11:12 RB [id number] 08/26/24 11:13 RB Document 09/02/24 12:01 KW [id number] 09/02/24 12:01 KW Document 09/09/24 11:38 RB [id number] 09/09/24 11:38 RB 08/26/24 09/02/24 09/09/24 11:12 12:01 11:38 Wound Care Center Nurse 3 #3 L Lateral Plantar Foot -Ulcer Cleansing Rinsed/ Rinsed/ Irrigated with Irrigated with Saline Saline -Primary Dressing Applied Aquacel Extra Aquacel Extra Aquacel Extra -Primary Dressing Covered/Secured with Dry Gauze & Dry Gauze & Dry Gauze & Roll Gauze, Roll Gauze, Roll Gauze, Secured with Secured with Secured with Tape Tape Tape -Aquacel Extra 1 1 1 Treatment Response Procedure Procedure Tolerated Well Tolerated Well Pain Scale: 0-10 Numeric Is Patient Pain Free? Yes Yes Yes WC - Visit Discharge Discharge Condition Stable Stable Stable Ambulatory Status Ambulatory Ambulatory Ambulatory Transportation Private Auto Private Auto Private Auto Accompanied by Medication Reconcilliation completed & No No No provided to patient/care provider Clinical Summary of Care Provided Yes Yes Yes Assessment/Plan Assessment/Plan (1) Delayed wound healing: CODE(S): T14.8XXD - Other injury of unspecified body region, subsequent encounter (2) Chronic ulcer of left foot with fat layer exposed: CODE(S): L97.522 - Non-pressure chronic ulcer of other part of left foot with fat layer exposed (3) HTN (hypertension): CODE(S): I10 - Essential (primary) hypertension QUALIFIERS: Hypertension type: primary hypertension Qualified Code(s): I10 - Essential (primary) hypertension (4) Diabetic ulcer of foot associated with diabetes mellitus due to underlying condition, with fat layer exposed: CODE(S): E08.621 - Diabetes mellitus due to underlying condition with foot ulcer; L97.502 - Non-pressure chronic ulcer of other part of unspecified foot with fat layer exposed QUALIFIERS: Diabetic foot ulcer location: midfoot Laterality: left Qualified Code(s): E08.621 - Diabetes mellitus due to underlying condition with foot ulcer; L97.422 - Non-pressure chronic ulcer of left heel and midfoot with fat layer exposed (5) Type 2 diabetes mellitus without complications: CODE(S): E11.9 - Type 2 diabetes mellitus without complications QUALIFIERS: Diabetes mellitus [employer] insulin use: without superintendent [employer] 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 It has been stable since his last visit but callus formation is still present. I suspect noncompliance of offloading to be a major factor in his delayed healing. At home wound-care instructions: Wash ulcer daily with antibacterial soap and water. Will have him continue to use Aquacel Extra to ulcer and cover with gauze and roll gauze to secure daily. Keep dressing clean and dry. His work boot was modified on 07/03/23 and again 12/25/23 to try to offload pressure. He will retire September 22, 2024. Will have him use single layer tubigrip medium compression to left LE. He reports increased swelling in his ankle and leg when wearing the tubigrip compression so has stopped wearing. Discussed possibly using TCC for offloading in near future but he is unable to do so due to work. We also discussed that there may be a single vessel narrowing that could be preventing healing and talked about possible referral to Vascular surgery to do CTA runoff. Also discussed surgical procedure proposed by podiatry to shave exostosis of bone that is likely causing ulcer and he declines at this time. Off-loading: The patient was instructed to avoid pressure and friction on the affected areas. Reposition every 2 hours at minimum. Avoid prolonged standing and/or dangling of legs. When seated, feet should be elevated at chest level. Frequent ambulation is encouraged. Diet: Patient encouraged to increase protein intake while taking caution to avoid high carbohydrate and/or sugar intake. Labs/cultures/imaging: Wound culture positive 03/27/23 and is currently on Doxycycline. Wound culture showed Staph and Strep and he was treated with Keflex based on sensitivities and use topical Gentamicin for 3 weeks. Wound culture done 09/18/23 was positive for staph epidermidis. He has been on cephalexin and doxycycline. Wound culture was positive for Enterococcus and Linezolid completed. Wound culture was positive and he will continue Flagyl, Cipro and hold cefdinir and decrease doxycycline to once/day. His put him back on Ke flex and doxycycline when his ulcer worsened over . Wound culture on 04/29/24 was positive for Staph epidermidis and he completed Linezolid and is back to taking chronic doxycyline and on Bactrim. Wound culture taken showed Corynebacterium and we discussed starting him on Augmentin but are hesitant to do this because of a PCN allergy that he reports as a child but he does not recall the reaction. XR of foot was negative. MRI negative for osteomyelitis and arterial testing negative for arterial insufficiency. Repeat XR of foot was negative. XR ordered again to r/o osteomyelitis and was negative. Follow-up: Return in 1 week for wound care follow up. Return sooner or report to the emergency room should symptoms worsen, or new symptoms arise. Note: [employer] speech recognition sales and marketing manager software was used to create portions of this document. Sound-alike and misspelled words, as well as other sales and marketing manager errors may be contained in the documentation.
--- NOTE | 2024-09-12 13:14 | WC ---
PHOTO 09/09/24 LEFT LATERAL PLANTAR
[2024-09-16 11:13] VITALS: BP 115/65; PULSE 77; RESP 16; TEMP 36.1
--- NOTE | 2024-09-16 14:57 | PCM.WC.PN ---
History of Present Illness Date of Service: 09/16/24 Chief Complaint: nonhealing wound left plantar foot History of Wound: Jose J is a 68 y/o gentleman that presents to the wound healing center for evaluation and treatment of a wound to his left plantar foot. He is a patient of Dr. Giordano. He has had a wound to this same area in February 2019 and was seen at [facility] [place] and treated there for 9 weeks with Aquacel and was placed in a wedge shoe to offload his foot. He was treated for this same wound for almost a year at this wound center and was healed in May 2020 and returned in July and was treated until September. He had undergone vascular testing at [facility] in 2018 and this has been repeated 09/2023 without significant arterial disease. 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 He and his did not want to do surgery. He has managed to do well over the last 2 years until the end of October when the area became painful again and began draining. He saw Dr. Giordano and was treated with doxycycline which helped and they had been applying Aquacel that they had from previous treatment but it has not improved. He was treated with a second course of doxycycline and then referred here for treatment. He is still working and walking on his foot in a steel toe boot 4 days a week for 10 hours. He had an offloading pad in his work boot previously but no longer has this in place. He denies claudication with walking. He has moderate to heavy drainage from the ulcer. He has not had any wound cultures taken. 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 He denies fever, chill, nausea, vomiting, redness or odor. Subjective Subjective Jose J returns today for follow up of an ulcer on the bottom of his left foot. His ulcer and drainage are relatively unchanged since last visit. He continues to wear his modified work boot to alleviate pressure to the site of the ulcer of his left foot. He has been tolerating the Aquacel Extra to the ulcer. His most recent wound culture was positive for Corynebacterium striatum and negative for anaerobic bacteria. He is on Bactrim DS and doxycycline. He denies fever, chills or odor. He had MRI on 10/02/23 which did not show any osteomyelitis of his foot. Arterial testing was also done and did not show any evidence of arterial insufficiency. HgbA1C was 6.5% on 10/09/23. Objective Data Objective Data Vital Signs: Vital Signs Temp Pulse Resp BP O2 Del Method 97.0 F L 77 16 115/65 Room Air 09/16/24 11:13 09/16/24 11:13 09/16/24 11:13 09/16/24 11:13 09/16/24 11:13 Oxygen Delivery Method Room Air Physical Exam Const alert, oriented x3 and no apparent distress General Appearance: cooperative and comfortable HEENT normocephalic and head/scalp atraumatic Resp normal respiratory effort Effort and Inspection: able to speak in complete sentences Auscultation: rales, rhonchi and diminished lung sounds Cardio regular rate and regular rhythm Skin Wounds: wounds noted Wound Narrative: as in clinical panel, mild callus formation surrounding ulcer, no cellulitis or odor Psych mental status grossly normal, thought process normal, cooperative and affect normal Debridement Note Debridement Note Wound debrided: left lateral plantar ulcer Laterality: Left Wound Grade/Stage: Luther grade 1 Type of Debridement: Excisional debridement Anesthesia Used: 5% Lidocaine Gel Depth: Down to and including healthy tissue and in the subcutaneous layer Percentage of wound debrided: 100 Instrument Used: 3mm curette Tissue Removed: Yellow slough, devitalized tissue Severity: Fat Layer Exposed Amount of bleeding with debridement: Mild Bleeding Controlled with: Pressure Patient tolerated procedure: Patient tolerated procedure well Post-Debridement Measurements and Additional Note: Post-Debridement Measurements/Treatment - Nurse 1 - General Ulcer Assessment Start: 08/26/24 10:15 Freq: Status: Active Protocol: QUOC.AMADA Activity Type Activity Date Activity User E-sign Co-sign Detail Recorded Client Recorded Date Recorded By Document 08/26/24 10:15 KW [id number] 08/26/24 10:19 KW Document 09/02/24 10:16 KW [id number] 09/02/24 10:22 KW Document 09/09/24 10:33 RB [id number] 09/09/24 10:35 RB Document 09/16/24 11:13 KW [id number] 09/16/24 11:15 KW 08/26/24 09/02/24 09/09/24 10:15 10:16 10:33 [facility] Today's Visit Information Type of service Follow-up Visit Follow-up Visit Follow-up Visit (Physician/DIRECTOR TALENT (Physician/DIRECTOR TALENT (Physician/DIRECTOR TALENT ) ) ) Arrival Mode Ambulatory Ambulatory Ambulatory Transfer Assistance None Accompanied by Patient Identification Verified (Name & Yes Yes Yes ) Patient Requires Transmission-Based No Precautions Vital Signs Temperature (97.8 F-99.1 F) 97.7 F L 97.4 F L 97.4 F L Temperature Source Temporal Temporal Temporal Pulse Rate (60-100) 74 75 71 Pulse Location Monitor Monitor Monitor Respiratory Rate (12-18) 16 18 18 Respiratory rate source Observation Observation Observation Oxygen Delivery Method Room Air Room Air Blood Pressure (90/60-120/80) 120/47 L 135/55 H 119/56 L Blood Pressure Mean (mm Hg) 71 81 77 Source Monitor Monitor Monitor Position Semi-Fowlers Sitting Semi-Fowlers Blood Pressure Location Left Arm Right Arm Left Arm History Since Last Visit- (Skip if this is Patient's initial visit) Have you changed medications since your No No No last visit? Any new allergies or adverse reactions No No No Had a fall/change in ADL's that may No No No increase risk of falls Signs or symptoms of abuse and/or No No No neglect since last visit Have you been in the hospital since your No No No last visit? Has dressing in place as prescribed Yes Yes Yes Has compression in place as prescribed N/A N/A N/A Has offloadiing in place as prescribed N/A N/A Yes Experienced any changes in pain level or No No No management Left Footwear Regular Shoe Regular Shoe Regular Shoe Right Footwear Regular Shoe Regular Shoe Regular Shoe Pain Scale: 0-10 Numeric Is Patient Pain Free? Yes Yes Yes 09/16/24 11:13 [facility] Today's Visit Information Type of service Follow-up Visit (Physician/DIRECTOR TALENT ) Arrival Mode Ambulatory Transfer Assistance Accompanied by Patient Identification Verified (Name & Yes ) Patient Requires Transmission-Based Precautions Vital Signs Temperature (97.8 F-99.1 F) 97.0 F L Temperature Source Temporal Pulse Rate (60-100) 77 Pulse Location Monitor Respiratory Rate (12-18) 16 Respiratory rate source Observation Oxygen Delivery Method Room Air Blood Pressure (90/60-120/80) 115/65 Blood Pressure Mean (mm Hg) 81 Source Monitor Position Semi-Fowlers Blood Pressure Location Left Arm History Since Last Visit- (Skip if this is Patient's initial visit) Have you changed medications since your No last visit? Any new allergies or adverse reactions No Had a fall/change in ADL's that may No increase risk of falls Signs or symptoms of abuse and/or No neglect since last visit Have you been in the hospital since your No last visit? Has dressing in place as prescribed Yes Has compression in place as prescribed N/A Has offloadiing in place as prescribed N/A Experienced any changes in pain level or No management Left Footwear Regular Shoe Right Footwear Regular Shoe Pain Scale: 0-10 Numeric Is Patient Pain Free? Yes WC - Nurse 1 - General Ulcer Measurement Start: 08/26/24 10:15 Freq: Status: Active Protocol: Activity Type Activity Date Activity User E-sign Co-sign Detail Recorded Client Recorded Date Recorded By Document 08/26/24 10:15 KW [id number] 08/26/24 10:19 KW Document 09/02/24 10:16 KW [id number] 09/02/24 10:22 KW Document 09/09/24 10:33 RB [id number] 09/09/24 10:35 RB Document 09/16/24 11:13 KW [id number] 09/16/24 11:15 KW 08/26/24 09/02/24 09/09/24 10:15 10:16 10:33 Wound Center Nurse 1 #3 L Lateral Plantar Foot -Combined with other wound No -Current Size (cm) - Length 3 2.2 1 -Current Size (cm) - Width 0.7 1 0.7 -Current Size (cm) - Depth 0.2 0.1 0.1 -Total Square Cm 2.1 2.2 0.7 -Date of Last Picture (Recall this 08/26/24 09/02/24 field) -Photo Taken Yes -Tunneling No -Undermining/Tunneling No -Circular Undermining No -Exudate Amt Small Small Medium -Exudate Type Serosanguineous Serosanguineous Serosanguineous -Wound Margin Distinct, Distinct, Distinct, Outline Outline Outline Attached Attached Attached -Granulation Amt Large (67-100%) Large (67-100%) Medium (34-66%) -Granulation Quality Red [place] -Slough/Fibrin Yes -Necrosis Amt Medium (34-66%) -Necrotic Tissue Type Adherent Slough -Structure Exposed N/A -Texture (Flory-wound Skin Appearance) Assessed Assessed,Callus Assessed,Callus -Moisture (Flory-wound Skin Appearance) Assessed Assessed Assessed -Color (Flory-wound Skin Appearance) Assessed Assessed Assessed -Temperature (Flory-wound Skin No Abnormality No Abnormality No Abnormality Appearance) (Pt Warm) (Pt Warm) (Pt Warm) -Tenderness on Palpation (Flory-wound No No No Skin Appearance) -Ulcer Cleansing Rinsed/ Rinsed/ Wound Cleanser Irrigated with Irrigated with Saline Saline -Foul Odor after Cleansing No No No -Anesthetic Used 5% Lidocaine 5% Lidocaine 5% Lidocaine Gel Gel Gel 09/16/24 11:13 Wound Center Nurse 1 #3 L Lateral Plantar Foot -Combined with other wound -Current Size (cm) - Length 1.5 -Current Size (cm) - Width 1 -Current Size (cm) - Depth 0.1 -Total Square Cm 1.5 -Date of Last Picture (Recall this field) -Photo Taken -Tunneling -Undermining/Tunneling -Circular Undermining -Exudate Amt Small -Exudate Type Serosanguineous -Wound Margin Distinct, Outline Attached -Granulation Amt Large (67-100%) -Granulation Quality [place],Red -Slough/Fibrin -Necrosis Amt -Necrotic Tissue Type -Structure Exposed -Texture (Flory-wound Skin Appearance) Assessed -Moisture (Flory-wound Skin Appearance) Assessed -Color (Flory-wound Skin Appearance) Assessed -Temperature (Flory-wound Skin No Abnormality Appearance) (Pt Warm) -Tenderness on Palpation (Flory-wound No Skin Appearance) -Ulcer Cleansing Rinsed/ Irrigated with Saline -Foul Odor after Cleansing No -Anesthetic Used 5% Lidocaine Gel WC - Nurse 2 - General Ulcer CM Notes Start: 08/26/24 10:15 Freq: Status: Active Protocol: Activity Type Activity Date Activity User E-sign Co-sign Detail Recorded Client Recorded Date Recorded By Document 08/26/24 10:38 DS [id number] 08/26/24 10:50 DS Document 09/02/24 11:17 [id number] 09/02/24 11:26 GM Document 09/09/24 11:19 [id number] 09/09/24 11:30 GM Document 09/16/24 11:33 [id number] 09/16/24 11:41 GM 08/26/24 09/02/24 09/09/24 10:38 11:17 11:19 Wound Center Nurse 2 #3 L Lateral Plantar Foot -Time 10:38 11:17 11:19 -Correct Patient Yes Yes Yes -Correct Side, Site, Position Yes Yes Yes -Correct Procedure Yes Yes Yes -Procedure Performed Yes Yes Yes -Type of Procedure Debridement Debridement Debridement -Clinical Debridement Subcutaneous Subcutaneous Subcutaneous -Tissue Removed Subcutaneous Subcutaneous Subcutaneous -Post Debridement (cm) - Length 2.9 2.5 2.8 -Post Debridement (cm) - Width 1.4 0.8 1.0 -Post Debridement (cm) - Depth 0.2 0.2 0.2 -Total Square (Post) (cm) 4.06 2.00 2.80 -Area of Debridement (cm) - Length 2.9 2.5 2.8 -Area of Debridement (cm) - Width 1.4 0.8 1.0 -Total Square (Area) (cm) 4.06 2.00 2.80 -Tunneling No No No -Undermining/Tunneling No No No -Circular Undermining No No No -Wound/Ulcer Outcome Not Healed Not Healed Not Healed -Ulcer Cleansing Rinsed/ Rinsed/ Rinsed/ Irrigated with Irrigated with Irrigated with Saline Saline Saline -Foul Odor after Cleansing No No No -Bioengineered Tissue No No No -Bleeding Controlled with Pressure Pressure Pressure -Treatment Response Procedure Procedure Procedure Tolerated Well Tolerated Well Tolerated Well -Offloading No No -Debridement - Subq, 1st 20sq cm Yes Yes Yes Pain Scale: 0-10 Numeric Is Patient Pain Free? Yes Yes Yes 09/16/24 11:33 Wound Center Nurse 2 #3 L Lateral Plantar Foot -Time 11:33 -Correct Patient Yes -Correct Side, Site, Position Yes -Correct Procedure Yes -Procedure Performed Yes -Type of Procedure Debridement -Clinical Debridement Subcutaneous -Tissue Removed Subcutaneous -Post Debridement (cm) - Length 2.5 -Post Debridement (cm) - Width 1.0 -Post Debridement (cm) - Depth 0.1 -Total Square (Post) (cm) 2.50 -Area of Debridement (cm) - Length 2.5 -Area of Debridement (cm) - Width 1.0 -Total Square (Area) (cm) 2.50 -Tunneling No -Undermining/Tunneling No -Circular Undermining No -Wound/Ulcer Outcome Not Healed -Ulcer Cleansing Rinsed/ Irrigated with Saline -Foul Odor after Cleansing No -Bioengineered Tissue No -Bleeding Controlled with Pressure -Treatment Response Procedure Tolerated Well -Offloading No -Debridement - Subq, 1st 20sq cm Yes Pain Scale: 0-10 Numeric Is Patient Pain Free? Yes - Nurse 3 - General Ulcer D/C NN Start: 08/26/24 10:15 Freq: Status: Active Protocol: Activity Type Activity Date Activity User E-sign Co-sign Detail Recorded Client Recorded Date Recorded By Document 08/26/24 11:12 RB [id number] 08/26/24 11:13 RB Document 09/02/24 12:01 KW [id number] 09/02/24 12:01 KW Document 09/09/24 11:38 RB [id number] 09/09/24 11:38 RB Document 09/16/24 11:55 DS [id number] 09/16/24 12:03 DS 08/26/24 09/02/24 09/09/24 11:12 12:01 11:38 Wound Care Center Nurse 3 #3 L Lateral Plantar Foot -Ulcer Cleansing Rinsed/ Rinsed/ Irrigated with Irrigated with Saline Saline -Primary Dressing Applied Aquacel Extra Aquacel Extra Aquacel Extra -Primary Dressing Covered/Secured with Dry Gauze & Dry Gauze & Dry Gauze & Roll Gauze, Roll Gauze, Roll Gauze, Secured with Secured with Secured with Tape Tape Tape -Aquacel Extra 1 1 1 Treatment Response Procedure Procedure Tolerated Well Tolerated Well Pain Scale: 0-10 Numeric Is Patient Pain Free? Yes Yes Yes WC - Visit Discharge Discharge Condition Stable Stable Stable Ambulatory Status Ambulatory Ambulatory Ambulatory Transportation Private Auto Private Auto Private Auto Accompanied by Medication Reconcilliation completed & No No No provided to patient/care provider Clinical Summary of Care Provided Yes Yes Yes 09/16/24 11:55 Wound Care Center Nurse 3 #3 L Lateral Plantar Foot -Ulcer Cleansing -Primary Dressing Applied Aquacel Extra -Primary Dressing Covered/Secured with Dry Gauze & Roll Gauze, Secured with Tape -Aquacel Extra 1 Treatment Response Pain Scale: 0-10 Numeric Is Patient Pain Free? Yes WC - Visit Discharge Discharge Condition Stable Ambulatory Status Ambulatory Transportation Private Auto Accompanied by Medication Reconcilliation completed & provided to patient/care provider Clinical Summary of Care Provided Assessment/Plan Assessment/Plan (1) Delayed wound healing: CODE(S): T14.8XXD - Other injury of unspecified body region, subsequent encounter (2) Chronic ulcer of left foot with fat layer exposed: CODE(S): L97.522 - Non-pressure chronic ulcer of other part of left foot with fat layer exposed (3) HTN (hypertension): CODE(S): I10 - Essential (primary) hypertension QUALIFIERS: Hypertension type: primary hypertension Qualified Code(s): I10 - Essential (primary) hypertension (4) Diabetic ulcer of foot associated with diabetes mellitus due to underlying condition, with fat layer exposed: CODE(S): E08.621 - Diabetes mellitus due to underlying condition with foot ulcer; L97.502 - Non-pressure chronic ulcer of other part of unspecified foot with fat layer exposed QUALIFIERS: Diabetic foot ulcer location: midfoot Laterality: left Qualified Code(s): E08.621 - Diabetes mellitus due to underlying condition with foot ulcer; L97.422 - Non-pressure chronic ulcer of left heel and midfoot with fat layer exposed (5) Type 2 diabetes mellitus without complications: CODE(S): E11.9 - Type 2 diabetes mellitus without complications QUALIFIERS: Diabetes mellitus halfway insulin use: without halfway 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 It has been stable since his last visit but callus formation is still present. I suspect noncompliance of offloading to be a major factor in his delayed healing. At home wound-care instructions: Wash ulcer daily with antibacterial soap and water. Will have him continue to use Aquacel Extra to ulcer and cover with gauze and roll gauze to secure daily. Keep dressing clean and dry. His work boot was modified on 07/03/23 and again 12/25/23 to try to offload pressure. He will retire September 22, 2024. Will have him use single layer tubigrip medium compression to left LE. He reports increased swelling in his ankle and leg when wearing the tubigrip compression so has stopped wearing. Discussed possibly using TCC for offloading in near future but he is unable to do so due to work. We also discussed that there may be a single vessel narrowing that could be preventing healing and talked about possible referral to Vascular surgery to do CTA runoff. Also discussed surgical procedure proposed by podiatry to shave exostosis of bone that is likely causing ulcer and he declines at this time. Off-loading: The patient was instructed to avoid pressure and friction on the affected areas. Reposition every 2 hours at minimum. Avoid prolonged standing and/or dangling of legs. When seated, feet should be elevated at chest level. Frequent ambulation is encouraged. Diet: Patient encouraged to increase protein intake while taking caution to avoid high carbohydrate and/or sugar intake. Labs/cultures/imaging: Wound culture positive 03/27/23 and is currently on Doxycycline. Wound culture showed Staph and Strep and he was treated with Keflex based on sensitivities and use topical Gentamicin for 3 weeks. Wound culture done 09/18/23 was positive for staph epidermidis. He has been on cephalexin and doxycycline. Wound culture was positive for Enterococcus and Linezolid completed. Wound culture was positive and he will continue Flagyl, Cipro and hold cefdinir and decrease doxycycline to once/day. His put him back on Keflex and doxycycline when his ulcer worsened over . Wound culture on 04/29/24 was positive for Staph epidermidis and he completed Linezolid and is back to taking chronic doxycyline and on Bactrim. Wound culture taken showed Corynebacterium and we discussed starting him on Augmentin but are hesitant to do this because of a PCN allergy that he reports as a child but he does not recall the reaction. XR of foot was negative. MRI negative for osteomyelitis and arterial testing negative for arterial insufficiency. Repeat XR of foot was negative. XR ordered again to r/o osteomyelitis and was negative. Follow-up: Return in 2 weeks for wound care follow up. Return sooner or report to the emergency room should symptoms worsen, or new symptoms arise. Note: [id number] speech recognition applications programmer analyst software was used to create portions of this document. Sound-alike and misspelled words, as well as other applications programmer analyst errors may be contained in the documentation.
== END 2024-09-21 23:59 | disposition home or self-care (01) ==
LOC: WC 10:30
PROVIDERS: PCP Family Medicine; Referring Provider Family Medicine; Visit Provider Family Medicine
DX: E11.621 Type 2 diabetes mellitus with foot ulcer (principal); L97.422 Non-pressure chronic ulcer of left heel and midfoot with fat layer exposed; Z79.899 Other long term (current) drug therapy; I10 Essential (primary) hypertension
CPT/HCPCS: 11042

== ENCOUNTER 2024-10-21 10:00 | Outpatient (RCR) | payer BC, MEDICARE, OTHER, SELFPAY ==
[2024-09-22 00:31] VITALS: BP 115/65; PULSE 77; RESP 16; TEMP 36.1
[2024-09-30 10:10] VITALS: BP 133/56; PULSE 80; RESP 16; TEMP 36.3
--- NOTE | 2024-09-30 15:35 | PCM.WC.PN ---
History of Present Illness Date of Service: 09/30/24 Chief Complaint: nonhealing wound left plantar foot History of Wound: Jose J is a 68 y/o gentleman that presents to the wound healing center for evaluation and treatment of a wound to his left plantar foot. He is a patient of Dr. Giordano. He has had a wound to this same area in February 2019 and was seen at [facility] and treated there for 9 weeks with Aquacel and was placed in a wedge shoe to offload his foot. He was treated for this same wound for almost a year at this wound center and was healed in May 2020 and returned in July and was treated until September. He had undergone vascular testing at [facility] in 2018 and this has been repeated 09/2023 without significant arterial disease. 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 He and his did not want to do surgery. He has managed to do well over the last 2 years until the end of October when the area became painful again and began draining. He saw Dr. Giordano and was treated with doxycycline which helped and they had been applying Aquacel that they had from previous treatment but it has not improved. He was treated with a second course of doxycycline and then referred here for treatment. He is still working and walking on his foot in a steel toe boot 4 days a week for 10 hours. He had an offloading pad in his work boot previously but no longer has this in place. He denies claudication with walking. He has moderate to heavy drainage from the ulcer. He has not had any wound cultures taken. 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 He denies fever, chill, nausea, vomiting, redness or odor. Subjective Subjective Jose J returns today for follow up of an ulcer on the bottom of his left foot. His ulcer and drainage are relatively unchanged since last visit. He continues to wear his modified work boot to alleviate pressure to the site of the ulcer of his left foot. He has been tolerating the Aquacel Extra to the ulcer. His most recent wound culture was positive for Corynebacterium striatum and negative for anaerobic bacteria. He is on Bactrim DS and doxycycline. He denies fever, chills or odor. He had MRI on 10/02/23 which did not show any osteomyelitis of his foot. Arterial testing was also done and did not show any evidence of arterial insufficiency. HgbA1C was 6.5% on 10/09/23. Objective Data Objective Data Vital Signs: Vital Signs Temp Pulse Resp BP O2 Del Method 97.4 F L 80 16 133/56 H Room Air 09/30/24 10:10 09/30/24 10:10 09/30/24 10:10 09/30/24 10:10 09/30/24 10:10 Oxygen Delivery Method Room Air Physical Exam Const alert, oriented x3 and no apparent distress General Appearance: cooperative and comfortable HEENT normocephalic and head/scalp atraumatic Resp normal respiratory effort Effort and Inspection: able to speak in complete sentences Auscultation: rales, rhonchi and diminished lung sounds Cardio regular rate and regular rhythm Skin Wounds: wounds noted Wound Narrative: as in clinical panel, mild callus formation surrounding ulcer, no cellulitis or odor Psych mental status grossly normal, thought process normal, cooperative and affect normal Debridement Note Debridement Note Wound debrided: left lateral plantar ulcer Laterality: Left Wound Grade/Stage: Luther grade 1 Type of Debridement: Excisional debridement Anesthesia Used: 5% Lidocaine Gel Depth: Down to and including healthy tissue and in the subcutaneous layer Percentage of wound debrided: 100 Instrument Used: 3mm curette Tissue Removed: Yellow slough, devitalized tissue Severity: Fat Layer Exposed Amount of bleeding with debridement: Mild Bleeding Controlled with: Pressure Patient tolerated procedure: Patient tolerated procedure well Post-Debridement Measurements and Additional Note: Post-Debridement Measurements/Treatment - Nurse 1 - General Ulcer Assessment Start: 09/30/24 10:10 Freq: Status: Active Protocol: [email or web address].[email or web address] Activity Type Activity Date Activity User E-sign Co-sign Detail Recorded Client Recorded Date Recorded By Document 09/30/24 10:10 [id number] 09/30/24 10:15 KW 09/30/24 10:10 - Today's Visit Information Type of service Follow-up Visit (Physician/BUS MONITOR ) Arrival Mode Ambulatory Accompanied by Patient Identification Verified (Name & Yes ) Vital Signs Temperature (97.8 F-99.1 F) 97.4 F L Temperature Source Temporal Pulse Rate (60-100) 80 Pulse Location Monitor Respiratory Rate (12-18) 16 Respiratory rate source Observation Oxygen Delivery Method Room Air Blood Pressure (90/60-120/80) 133/56 H Blood Pressure Mean (mm Hg) 81 Source Monitor Position Semi-Fowlers Blood Pressure Location Right Arm History Since Last Visit- (Skip if this is Patient's initial visit) Have you changed medications since your No last visit? Any new allergies or adverse reactions No Had a fall/change in ADL's that may No increase risk of falls Signs or symptoms of abuse and/or No neglect since last visit Have you been in the hospital since your No last visit? Has dressing in place as prescribed Yes Has compression in place as prescribed N/A Has offloadiing in place as prescribed N/A Experienced any changes in pain level or No management Left Footwear Regular Shoe Right Footwear Regular Shoe Pain Scale: 0-10 Numeric Is Patient Pain Free? Yes WC - Nurse 1 - General Ulcer Measurement Start: 09/30/24 10:10 Freq: Status: Active Protocol: Activity Type Activity Date Activity User E-sign Co-sign Detail Recorded Client Recorded Date Recorded By Document 09/30/24 10:10 [email or web address] [id number] 09/30/24 10:15 KW 09/30/24 10:10 Wound Center Nurse 1 #3 L Lateral Plantar Foot -Current Size (cm) - Length 1 -Current Size (cm) - Width 0.6 -Current Size (cm) - Depth 0.1 -Total Square Cm 0.6 -Date of Last Picture (Recall this 09/30/24 field) -Exudate Amt Small -Exudate Type Serosanguineous -Wound Margin Distinct, Outline Attached -Granulation Amt Large (67-100%) -Granulation Quality [place] -Texture (Flory-wound Skin Appearance) Assessed,Callus -Moisture (Flory-wound Skin Appearance) Assessed -Color (Flory-wound Skin Appearance) Assessed -Temperature (Flory-wound Skin No Abnormality Appearance) (Pt Warm) -Tenderness on Palpation (Flory-wound No Skin Appearance) -Ulcer Cleansing Rinsed/ Irrigated with Saline -Foul Odor after Cleansing No -Anesthetic Used 5% Lidocaine Gel WC - Nurse 2 - General Ulcer CM Notes Start: 09/30/24 10:10 Freq: Status: Active Protocol: Activity Type Activity Date Activity User E-sign Co-sign Detail Recorded Client Recorded Date Recorded By Document 09/30/24 11:20 [id number] 09/30/24 11:36 09/30/24 11:20 Wound Center Nurse 2 -Time 11:20 -Correct Patient Yes -Correct Side, Site, Position Yes -Correct Procedure Yes -Procedure Performed Yes -Type of Procedure Debridement -Clinical Debridement Subcutaneous -Tissue Removed Subcutaneous -Post Debridement (cm) - Length 2.2 -Post Debridement (cm) - Width 1.0 -Post Debridement (cm) - Depth 0.2 -Total Square (Post) (cm) 2.20 -Area of Debridement (cm) - Length 2.2 -Area of Debridement (cm) - Width 1.0 -Total Square (Area) (cm) 2.20 -Tunneling No -Undermining/Tunneling No -Circular Undermining No -Wound/Ulcer Outcome Not Healed -Ulcer Cleansing Rinsed/ Irrigated with Saline -Foul Odor after Cleansing No -Bioengineered Tissue No -Bleeding Controlled with Pressure -Treatment Response Procedure Tolerated Well -Offloading No -Debridement - Subq, 1st 20sq cm Yes Pain Scale: 0-10 Numeric Is Patient Pain Free? Yes - Nurse 3 - General Ulcer D/C NN Start: 09/30/24 10:10 Freq: Status: Active Protocol: Activity Type Activity Date Activity User E-sign Co-sign Detail Recorded Client Recorded Date Recorded By Document 09/30/24 11:42 [id number] 09/30/24 11:43 09/30/24 11:42 Wound Care Center Nurse 3 #3 L Lateral Plantar Foot -Primary Dressing Applied Aquacel Extra -Primary Dressing Covered/Secured with Dry Gauze, Secured with Tape -Aquacel Extra 1 Pain Scale: 0-10 Numeric Is Patient Pain Free? Yes - Visit Discharge Discharge Condition Stable Ambulatory Status Ambulatory Transportation Private Auto Medication Reconcilliation completed & No provided to patient/care provider Clinical Summary of Care Provided Yes Assessment/Plan Assessment/Plan (1) Delayed wound healing: CODE(S): T14.8XXD - Other injury of unspecified body region, subsequent encounter (2) Chronic ulcer of left foot with fat layer exposed: CODE(S): L97.522 - Non-pressure chronic ulcer of other part of left foot with fat layer exposed (3) HTN (hypertension): CODE(S): I10 - Essential (primary) hypertension QUALIFIERS: Hypertension type: primary hypertension Qualified Code(s): I10 - Essential (primary) hypertension (4) Diabetic ulcer of foot associated with diabetes mellitus due to underlying condition, with fat layer exposed: CODE(S): E08.621 - Diabetes mellitus due to underlying condition with foot ulcer; L97.502 - Non-pressure chronic ulcer of other part of unspecified foot with fat layer exposed QUALIFIERS: Diabetic foot ulcer location: midfoot Laterality: left Qualified Code(s): E08.621 - Diabetes mellitus due to underlying condition with foot ulcer; L97.422 - Non-pressure chronic ulcer of left heel and midfoot with fat layer exposed (5) Type 2 diabetes mellitus without complications: CODE(S): E11.9 - Type 2 diabetes mellitus without complications QUALIFIERS: Diabetes mellitus fdc insulin use: without extermination inspector 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 It has been stable since his last visit but callus formation is still present. I suspect noncompliance of offloading to be a major factor in his delayed healing. At home wound-care instructions: Wash ulcer daily with antibacterial soap and water. Will have him continue to use Aquacel Extra to ulcer and cover with gauze and roll gauze to secure daily. Keep dressing clean and dry. His work boot was modified on 07/03/23 and again 12/25/23 to try to offload pressure. He retired September 22, 2024. Will have him use single layer tubigrip medium compression to left LE. He reports increased swelling in his ankle and leg when wearing the tubigrip compression so has stopped wearing. Discussed possibly using TCC for offloading in near future but he is unable to do so due to work. We also discussed that there may be a single vessel narrowing that could be preventing healing and talked about possible referral to Vascular surgery to do CTA runoff. Also discussed surgical procedure proposed by podiatry to shave exostosis of bone that is likely causing ulcer and he declines at this time. Off-loading: The patient was instructed to avoid pressure and friction on the affected areas. Reposition every 2 hours at minimum. Avoid prolonged standing and/or dangling of legs. When seated, feet should be elevated at chest level. Frequent ambulation is encouraged. Diet: Patient encouraged to increase protein intake while taking caution to avoid high carbohydrate and/or sugar intake. Labs/cultures/imaging: Wound culture positive 03/27/23 and is currently on Doxycycline. Wound culture showed Staph and Strep and he was treated with Keflex based on sensitivities and use topical Gentamicin for 3 weeks. Wound culture done 09/18/23 was positive for staph epidermidis. He has been on cephalexin and doxycycline. Wound culture was positive for Enterococcus and Linezolid completed. Wound culture was positive and he will continue Flagyl, Cipro and hold cefdinir and decrease doxycycline to once/day. His put him back on Keflex and doxycycline when his ulcer worsened over . Wound culture on 04/29/24 was positive for Staph epidermidis and he completed Linezolid and is back to taking chronic doxycyline and on Bactrim. Wound culture taken showed Corynebacterium and we discussed starting him on Augmentin but are hesitant to do this because of a PCN allergy that he reports as a child but he does not recall the reaction. XR of foot was negative. MRI negative for osteomyelitis and arterial testing negative for arterial insufficiency. Repeat XR of foot was negative. XR ordered again to r/o osteomyelitis and was negative. Follow-up: Return in 1 week for wound care follow up. Return sooner or report to the emergency room should symptoms worsen, or new symptoms arise. Note: [employer] speech recognition instrument worker software was used to create portions of this document. Sound-alike and misspelled words, as well as other instrument worker errors may be contained in the documentation.
[2024-10-07 09:56] VITALS: BP 133/64; PULSE 77; RESP 16; TEMP 36.3
--- NOTE | 2024-10-07 14:24 | PN.PCM_ITS ---
History of Present Illness Date of Service: 10/07/24 Chief Complaint: nonhealing wound left plantar foot History of Wound: Jose J is a 68 y/o gentleman that presents to the wound healing center for evaluation and treatment of a wound to his left plantar foot. He is a patient of Dr. Giordano. He has had a wound to this same area in February 2019 and was seen at [facility] and treated there for 9 weeks with Aquacel and was placed in a wedge shoe to offload his foot. He was treated for this same wound for almost a year at this wound center and was healed in May 2020 and returned in July and was treated until September. He had undergone vascular testing at [facility] in 2018 and this has been repeated 09/2023 without significant arterial disease. 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 He and his did not want to do surgery. He has managed to do well over the last 2 years until the end of October when the area became painful again and began draining. He saw Dr. Giordano and was treated with doxycycline which helped and they had been applying Aquacel that they had from previous treatment but it has not improved. He was treated with a second course of doxycycline and then referred here for treatment. He is still working and walking on his foot in a steel toe boot 4 days a week for 10 hours. He had an offloading pad in his work boot previously but no longer has this in place. He denies claudication with walking. He has moderate to heavy drainage from the ulcer. He has not had any wound cultures taken. 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 He denies fever, chill, nausea, vomiting, redness or odor. Subjective Subjective Jose J returns today for follow up of an ulcer on the bottom of his left foot. His ulcer and drainage are relatively unchanged since last visit. He continues to wear his modified work boot to alleviate pressure to the site of the ulcer of his left foot. He has been tolerating the Aquacel Extra to the ulcer. His most recent wound culture was positive for Corynebacterium striatum and negative for anaerobic bacteria. He is on Bactrim DS and doxycycline. He denies fever, chills or odor. He had MRI on 10/02/23 which did not show any osteomyelitis of his foot. Arterial testing was also done and did not show any evidence of arterial insufficiency. HgbA1C was 6.5% on 10/09/23. Objective Data Objective Data Vital Signs: Vital Signs Temp Pulse Resp BP O2 Del Method 97.3 F L 77 16 133/64 H Room Air 10/07/24 09:56 10/07/24 09:56 10/07/24 09:56 10/07/24 09:56 10/07/24 09:56 Oxygen Delivery Method Room Air Physical Exam Const alert, oriented x3 and no apparent distress General Appearance: cooperative and comfortable HEENT normocephalic and head/scalp atraumatic Resp normal respiratory effort Effort and Inspection: able to speak in complete sentences Auscultation: rales, rhonchi and diminished lung sounds Cardio regular rate and regular rhythm Skin Wounds: wounds noted Wound Narrative: as in clinical panel, mild callus formation surrounding ulcer, no cellulitis or odor Psych mental status grossly normal, thought process normal, cooperative and affect normal Debridement Note Debridement Note Wound debrided: left lateral plantar ulcer Laterality: Left Wound Grade/Stage: Luther grade 1 Type of Debridement: Excisional debridement Anesthesia Used: 5% Lidocaine Gel Depth: Down to and including healthy tissue and in the subcutaneous layer Percentage of wound debrided: 100 Instrument Used: 3mm curette Tissue Removed: Yellow slough, devitalized tissue Severity: Fat Layer Exposed Amount of bleeding with debridement: Mild Bleeding Controlled with: Pressure Patient tolerated procedure: Patient tolerated procedure well Post-Debridement Measurements and Additional Note: Post-Debridement Measurements/Treatment - Nurse 1 - General Ulcer Assessment Start: 09/30/24 10:10 Freq: Status: Active Protocol: QUOC.ELSAT Activity Type Activity Date Activity User E-sign Co-sign Detail Recorded Client Recorded Date Recorded By Document 09/30/24 10:10 KW [id number] 09/30/24 10:15 KW Document 10/07/24 09:56 KW [id number] 10/07/24 09:59 KW 09/30/24 10/07/24 10:10 09:56 - Today's Visit Information Type of service Follow-up Visit Follow-up Visit (Physician/BUSINESS SYSTEMS MANAGER (Physician/BUSINESS SYSTEMS MANAGER ) ) Arrival Mode Ambulatory Ambulatory Accompanied by Patient Identification Verified (Name & Yes Yes ) Vital Signs Temperature (97.8 F-99.1 F) 97.4 F L 97.3 F L Temperature Source Temporal Temporal Pulse Rate (60-100) 80 77 Pulse Location Monitor Monitor Respiratory Rate (12-18) 16 16 Respiratory rate source Observation Observation Oxygen Delivery Method Room Air Room Air Blood Pressure (90/60-120/80) 133/56 H 133/64 H Blood Pressure Mean (mm Hg) 81 87 Source Monitor Monitor Position Semi-Fowlers Semi-Fowlers Blood Pressure Location Right Arm Left Arm History Since Last Visit- (Skip if this is Patient's initial visit) Have you changed medications since your No No last visit? Any new allergies or adverse reactions No No Had a fall/change in ADL's that may No No increase risk of falls Signs or symptoms of abuse and/or No No neglect since last visit Have you been in the hospital since your No No last visit? Has dressing in place as prescribed Yes Yes Has compression in place as prescribed N/A N/A Has offloadiing in place as prescribed N/A N/A Experienced any changes in pain level or No No management Left Footwear Regular Shoe Regular Shoe Right Footwear Regular Shoe Regular Shoe Pain Scale: 0-10 Numeric Is Patient Pain Free? Yes Yes WC - Nurse 1 - General Ulcer Measurement Start: 09/30/24 10:10 Freq: Status: Active Protocol: Activity Type Activity Date Activity User E-sign Co-sign Detail Recorded Client Recorded Date Recorded By Document 09/30/24 10:10 [id number] 09/30/24 10:15 KW Document 10/07/24 09:56 [id number] 10/07/24 09:59 KW 09/30/24 10/07/24 10:10 09:56 Wound Center Nurse 1 #3 L Lateral Plantar Foot -Current Size (cm) - Length 1 1.2 -Current Size (cm) - Width 0.6 0.8 -Current Size (cm) - Depth 0.1 0.1 -Total Square Cm 0.6 0.96 -Date of Last Picture (Recall this 09/30/24 field) -Exudate Amt Small Medium -Exudate Type Serosanguineous Serosanguineous -Wound Margin Distinct, Distinct, Outline Outline Attached Attached -Granulation Amt Large (67-100%) Large (67-100%) -Granulation Quality Arispe Red -Texture (Flory-wound Skin Appearance) Assessed,Callus Callus -Moisture (Flory-wound Skin Appearance) Assessed Assessed -Color (Flory-wound Skin Appearance) Assessed Assessed -Temperature (Flory-wound Skin No Abnormality No Abnormality Appearance) (Pt Warm) (Pt Warm) -Tenderness on Palpation (Flory-wound No No Skin Appearance) -Ulcer Cleansing Rinsed/ Rinsed/ Irrigated with Irrigated with Saline Saline -Foul Odor after Cleansing No No -Anesthetic Used 5% Lidocaine 5% Lidocaine Gel Gel - Nurse 2 - General Ulcer CM Notes Start: 09/30/24 10:10 Freq: Status: Active Protocol: Activity Type Activity Date Activity User E-sign Co-sign Detail Recorded Client Recorded Date Recorded By Document 09/30/24 11:20 [id number] 09/30/24 11:36 Document 10/07/24 10:31 [id number] 10/07/24 10:44 09/30/24 10/07/24 11:20 10:31 Wound Center Nurse 2 #3 L Lateral Plantar Foot -Time 11:20 10:32 -Correct Patient Yes Yes -Correct Side, Site, Position Yes Yes -Correct Procedure Yes Yes -Procedure Performed Yes Yes -Type of Procedure Debridement Debridement -Clinical Debridement Subcutaneous Subcutaneous -Tissue Removed Subcutaneous Subcutaneous -Post Debridement (cm) - Length 2.2 2.0 -Post Debridement (cm) - Width 1.0 0.9 -Post Debridement (cm) - Depth 0.2 0.1 -Total Square (Post) (cm) 2.20 1.80 -Area of Debridement (cm) - Length 2.2 2.0 -Area of Debridement (cm) - Width 1.0 0.9 -Total Square (Area) (cm) 2.20 1.80 -Tunneling No No -Undermining/Tunneling No No -Circular Undermining No No -Wound/Ulcer Outcome Not Healed Not Healed -Ulcer Cleansing Rinsed/ Rinsed/ Irrigated with Irrigated with Saline Saline -Foul Odor after Cleansing No No -Bioengineered Tissue No No -Bleeding Controlled with Pressure Pressure -Treatment Response Procedure Procedure Tolerated Well Tolerated Well -Offloading No No -Debridement - Subq, 1st 20sq cm Yes Yes Pain Scale: 0-10 Numeric Is Patient Pain Free? Yes Yes - Nurse 3 - General Ulcer D/C NN Start: 09/30/24 10:10 Freq: Status: Active Protocol: Activity Type Activity Date Activity User E-sign Co-sign Detail Recorded Client Recorded Date Recorded By Document 09/30/24 11:42 KW [id number] 09/30/24 11:43 KW Document 10/07/24 10:51 GM [id number] 10/07/24 10:52 09/30/24 10/07/24 11:42 10:51 Wound Care Center Nurse 3 #3 L Lateral Plantar Foot -Ulcer Cleansing Not Cleansed -Foul Odor after Cleansing No -Primary Dressing Applied Aquacel Extra Aquacel Extra -Primary Dressing Covered/Secured with Dry Gauze, Dry Gauze, Secured with Secured with Tape Tape -Aquacel Extra 1 1 Pain Scale: 0-10 Numeric Is Patient Pain Free? Yes Yes WC - Visit Discharge Discharge Condition Stable Stable Ambulatory Status Ambulatory Ambulatory Transportation Private Auto Private Auto Medication Reconcilliation completed & No provided to patient/care provider Clinical Summary of Care Provided Yes Yes Assessment/Plan Assessment/Plan (1) Delayed wound healing: CODE(S): T14.8XXD - Other injury of unspecified body region, subsequent encounter (2) Chronic ulcer of left foot with fat layer exposed: CODE(S): L97.522 - Non-pressure chronic ulcer of other part of left foot with fat layer exposed (3) HTN (hypertension): CODE(S): I10 - Essential (primary) hypertension QUALIFIERS: Hypertension type: primary hypertension Qualified Code(s): I10 - Essential (primary) hypertension (4) Diabetic ulcer of foot associated with diabetes mellitus due to underlying condition, with fat layer exposed: CODE(S): E08.621 - Diabetes mellitus due to underlying condition with foot ulcer; L97.502 - Non-pressure chronic ulcer of other part of unspecified foot with fat layer exposed QUALIFIERS: Diabetic foot ulcer location: midfoot Laterality: left Qualified Code(s): E08.621 - Diabetes mellitus due to underlying condition with foot ulcer; L97.422 - Non-pressure chronic ulcer of left heel and midfoot with fat layer exposed (5) Type 2 diabetes mellitus without complications: CODE(S): E11.9 - Type 2 diabetes mellitus without complications QUALIFIERS: Diabetes mellitus half-way insulin use: without half-way 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 It has been stable since his last visit but callus formation is still present. I suspect noncompliance of offloading to be a major factor in his delayed healing. At home wound-care instructions: Wash ulcer daily with antibacterial soap and water. Will have him continue to use Aquacel Extra to ulcer and cover with gauze and roll gauze to secure daily. Keep dressing clean and dry. His work boot was modified on 07/03/23 and again 12/25/23 to try to offload pressure. He retired September 22, 2024. Will have him use single layer tubigrip medium compression to left LE. He reports increased swelling in his ankle and leg when wearing the tubigrip compression so has stopped wearing. Discussed possibly using TCC for offloading in near future but he is unable to do so due to work. We also discussed that there may be a single vessel narrowing that could be preventing healing and talked about possible referral to Vascular surgery to do CTA runoff. Also discussed surgical procedure proposed by podiatry to shave exostosis of bone that is likely causing ulcer and he declines at this time. Off-loading: The patient was instructed to avoid pressure and friction on the affected areas. Reposition every 2 hours at minimum. Avoid prolonged standing and/or dangling of legs. When seated, feet should be elevated at chest level. Frequent ambulation is encouraged. Diet: Patient encouraged to increase protein intake while taking caution to avoid high carbohydrate and/or sugar intake. Labs/cultures/imaging: Wound culture positive 03/27/23 and is currently on Doxycycline. Wound culture showed Staph and Strep and he was treated with Keflex based on sensitivities and use topical Gentamicin for 3 weeks. Wound culture done 09/18/23 was positive for staph epidermidis. He has been on cephalexin and doxycycline. Wound culture was positive for Enterococcus and Linezolid completed. Wound culture was positive and he will continue Flagyl, Cipro and hold cefdinir and decrease doxycycline to once/day. His put him back on Keflex and doxycycline when his ulcer worsened over . Wound culture on 04/29/24 was positive for Staph epidermidis and he completed Linezolid and is back to taking chronic doxycyline and on Bactrim. Wound culture taken showed Corynebacterium and we discussed starting him on Augmentin but are hesitant to do this because of a PCN allergy that he reports as a child but he does not recall the reaction. XR of foot was negative. MRI negative for osteomyelitis and arterial testing negative for arterial insufficiency. Repeat XR of foot was negative. XR ordered again to r/o osteomyelitis and was negative. Follow-up: Return in 1 week for wound care follow up. Return sooner or report to the emergency room should symptoms worsen, or new symptoms arise. Note: [employer] speech recognition physical therapy director software was used to create portions of this document. Sound-alike and misspelled words, as well as other tr anscription errors may be contained in the documentation.
[2024-10-14 09:50] VITALS: BP 125/46; PULSE 83; RESP 16; TEMP 36.3
--- NOTE | 2024-10-14 14:17 | PN.PCM_ITS ---
History of Present Illness Date of Service: 10/14/24 Chief Complaint: nonhealing wound left plantar foot History of Wound: Jose J is a 68 y/o gentleman that presents to the wound healing center for evaluation and treatment of a wound to his left plantar foot. He is a patient of Dr. Giordano. He has had a wound to this same area in February 2019 and was seen at [facility] and treated there for 9 weeks with Aquacel and was placed in a wedge shoe to offload his foot. He was treated for this same wound for almost a year at this wound center and was healed in May 2020 and returned in July and was treated until September. He had undergone vascular testing at [facility] in 2018 and this has been repeated 09/2023 without significant arterial disease. 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 He and his did not want to do surgery. He has managed to do well over the last 2 years until the end of October when the area became painful again and began draining. He saw Dr. Giordano and was treated with doxycycline which helped and they had been applying Aquacel that they had from previous treatment but it has not improved. He was treated with a second course of doxycycline and then referred here for treatment. He is still working and walking on his foot in a steel toe boot 4 days a week for 10 hours. He had an offloading pad in his work boot previously but no longer has this in place. He denies claudication with walking. He has moderate to heavy drainage from the ulcer. He has not had any wound cultures taken. 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 He denies fever, chill, nausea, vomiting, redness or odor. Subjective Subjective Jose J returns today for follow up of an ulcer on the bottom of his left foot. His ulcer and drainage are relatively unchanged since last visit. His most recent wound culture was positive for Corynebacterium striatum and negative for anaerobic bacteria. He is on Bactrim DS and doxycycline. He denies fever, chills or odor. He had MRI on 10/02/23 which did not show any osteomyelitis of his foot. Arterial testing was also done and did not show any evidence of arterial insufficiency. HgbA1C was 6.3% on 07/2024. Objective Data Objective Data Vital Signs: Vital Signs Temp Pulse Resp BP O2 Del Method 97.3 F L 83 16 125/46 H Room Air 10/14/24 09:50 10/14/24 09:50 10/14/24 09:50 10/14/24 09:50 10/14/24 09:50 Oxygen Delivery Method Room Air Physical Exam Const alert, oriented x3 and no apparent distress General Appearance: cooperative and comfortable HEENT normocephalic and head/scalp atraumatic Resp normal respiratory effort Effort and Inspection: able to speak in complete sentences Auscultation: rales, rhonchi and diminished lung sounds Cardio regular rate and regular rhythm Skin Wounds: wounds noted Wound Narrative: as in clinical panel, mild callus formation surrounding ulcer, no cellulitis or odor Psych mental status grossly normal, thought process normal, cooperative and affect normal Debridement Note Debridement Note Wound debrided: left lateral plantar ulcer Laterality: Left Wound Grade/Stage: Luther grade 1 Type of Debridement: Excisional debridement Anesthesia Used: 5% Lidocaine Gel Depth: Down to and including healthy tissue and in the subcutaneous layer Percentage of wound debrided: 100 Instrument Used: #15 blade and Forceps Tissue Removed: Yellow slough, devitalized tissue Severity: Fat Layer Exposed Amount of bleeding with debridement: Moderate Bleeding Controlled with: Pressure and Silver Nitrate Patient tolerated procedure: Patient tolerated procedure well Post-Debridement Measurements and Additional Note: Post-Debridement Measurements/Treatment QUOC - Nurse 1 - General Ulcer Assessment Start: 09/30/24 10:10 Freq: Status: Active Protocol: KANIKA Activity Type Activity Date Activity User E-sign Co-sign Detail Recorded Client Recorded Date Recorded By Document 09/30/24 10:10 KW [id number] 09/30/24 10:15 KW Document 10/07/24 09:56 KW [id number] 10/07/24 09:59 KW Document 10/14/24 09:50 KW [id number] 10/14/24 09:53 KW 09/30/24 10/07/24 10/14/24 10:10 09:56 09:50 - Today's Visit Information Type of service Follow-up Visit Follow-up Visit Follow-up Visit (Physician/GENERAL OPERATIONS MANAGER (Physician/GENERAL OPERATIONS MANAGER (Physician/GENERAL OPERATIONS MANAGER ) ) ) Arrival Mode Ambulatory Ambulatory Ambulatory Accompanied by Patient Identification Verified (Name & Yes Yes Yes ) Vital Signs Temperature (97.8 F-99.1 F) 97.4 F L 97.3 F L 97.3 F L Temperature Source Temporal Temporal Temporal Pulse Rate (60-100) 80 77 83 Pulse Location Monitor Monitor Monitor Respiratory Rate (12-18) 16 16 16 Respiratory rate source Observation Observation Observation Oxygen Delivery Method Room Air Room Air Room Air Blood Pressure (90/60-120/80) 133/56 H 133/64 H 125/46 H Blood Pressure Mean (mm Hg) 81 87 72 Source Monitor Monitor Monitor Position Semi-Fowlers Semi-Fowlers Sitting Blood Pressure Location Right Arm Left Arm Left Arm History Since Last Visit- (Skip if this is Patient's initial visit) Have you changed medications since your No No No last visit? Any new allergies or adverse reactions No No No Had a fall/change in ADL's that may No No No increase risk of falls Signs or symptoms of abuse and/or No No No neglect since last visit Have you been in the hospital since your No No No last visit? Has dressing in place as prescribed Yes Yes Yes Has compression in place as prescribed N/A N/A N/A Has offloadiing in place as prescribed N/A N/A N/A Experienced any changes in pain level or No No No management Left Footwear Regular Shoe Regular Shoe Regular Shoe Right Footwear Regular Shoe Regular Shoe Regular Shoe Pain Scale: 0-10 Numeric Is Patient Pain Free? Yes Yes Yes WC - Nurse 1 - General Ulcer Measurement Start: 09/30/24 10:10 Freq: Status: Active Protocol: Activity Type Activity Date Activity User E-sign Co-sign Detail Recorded Client Recorded Date Recorded By Document 09/30/24 10:10 KW [id number] 09/30/24 10:15 KW Document 10/07/24 09:56 KW [id number] 10/07/24 09:59 KW Document 10/14/24 09:50 KW [id number] 10/14/24 09:53 KW 09/30/24 10/07/24 10/14/24 10:10 09:56 09:50 Wound Center Nurse 1 #3 L Lateral Plantar Foot -Current Size (cm) - Length 1 1.2 1 -Current Size (cm) - Width 0.6 0.8 0.8 -Current Size (cm) - Depth 0.1 0.1 0.1 -Total Square Cm 0.6 0.96 0.8 -Date of Last Picture (Recall this 09/30/24 field) -Exudate Amt Small Medium Small -Exudate Type Serosanguineous Serosanguineous Serosanguineous -Wound Margin Distinct, Distinct, Distinct, Outline Outline Outline Attached Attached Attached -Granulation Amt Large (67-100%) Large (67-100%) Large (67-100%) -Granulation Quality [place] -Texture (Flory-wound Skin Appearance) Assessed,Callus Callus Assessed,Callus -Moisture ([place]-wound Skin Appearance) Assessed Assessed Assessed -Color ([place]-wound Skin Appearance) Assessed Assessed Assessed -Temperature ([place]-wound Skin No Abnormality No Abnormality No Abnormality Appearance) (Pt Warm) (Pt Warm) (Pt Warm) -Tenderness on Palpation ([place]-wound No No No Skin Appearance) -Ulcer Cleansing Rinsed/ Rinsed/ Rinsed/ Irrigated with Irrigated with Irrigated with Saline Saline Saline -Foul Odor after Cleansing No No No -Anesthetic Used 5% Lidocaine 5% Lidocaine 5% Lidocaine Gel Gel Gel WC - Nurse 2 - General Ulcer CM Notes Start: 09/30/24 10:10 Freq: Status: Active Protocol: Activity Type Activity Date Activity User E-sign Co-sign Detail Recorded Client Recorded Date Recorded By Document 09/30/24 11:20 [id number] 09/30/24 11:36 Document 10/07/24 10:31 [id number] 10/07/24 10:44 Document 10/14/24 10:33 [id number] 10/14/24 10:48 09/30/24 10/07/24 10/14/24 11:20 10:31 10:33 Wound Center Nurse 2 #3 L Lateral Plantar Foot -Time 11:20 10:32 10:33 -Correct Patient Yes Yes Yes -Correct Side, Site, Position Yes Yes Yes -Correct Procedure Yes Yes Yes -Procedure Performed Yes Yes Yes -Type of Procedure Debridement Debridement Debridement -Clinical Debridement Subcutaneous Subcutaneous Subcutaneous -Tissue Removed Subcutaneous Subcutaneous Subcutaneous -Post Debridement (cm) - Length 2.2 2.0 2.2 -Post Debridement (cm) - Width 1.0 0.9 0.8 -Post Debridement (cm) - Depth 0.2 0.1 0.2 -Total Square (Post) (cm) 2.20 1.80 1.76 -Area of Debridement (cm) - Length 2.2 2.0 2.2 -Area of Debridement (cm) - Width 1.0 0.9 0.8 -Total Square (Area) (cm) 2.20 1.80 1.76 -Tunneling No No No -Undermining/Tunneling No No No -Circular Undermining No No No -Wound/Ulcer Outcome Not Healed Not Healed Not Healed -Ulcer Cleansing Rinsed/ Rinsed/ Rinsed/ Irrigated with Irrigated with Irrigated with Saline Saline Saline -Foul Odor after Cleansing No No No -Bioengineered Tissue No No No -Bleeding Controlled with Pressure Pressure Pressure,Silver Nitrate ($) -Treatment Response Procedure Procedure Procedure Tolerated Well Tolerated Well Tolerated Well -Offloading No No No -Debridement - Subq, 1st 20sq cm Yes Yes Yes Pain Scale: 0-10 Numeric Is Patient Pain Free? Yes Yes Yes - Nurse 3 - General Ulcer D/C NN Start: 09/30/24 10:10 Freq: Status: Active Protocol: Activity Type Activity Date Activity User E-sign Co-sign Detail Recorded Client Recorded Date Recorded By Document 09/30/24 11:42 KW [id number] 09/30/24 11:43 KW Document 10/07/24 10:51 GM [id number] 10/07/24 10:52 Document 10/14/24 11:05 DS [id number] 10/14/24 11:11 DS 09/30/24 10/07/24 10/14/24 11:42 10:51 11:05 Wound Care Center Nurse 3 #3 L Lateral Plantar Foot -Ulcer Cleansing Not Cleansed -Foul Odor after Cleansing No -Primary Dressing Applied Aquacel Extra Aquacel Extra Aquacel Extra -Primary Dressing Covered/Secured with Dry Gauze, Dry Gauze, Dry Gauze,Dry Secured with Secured with Gauze & Roll Tape Tape Gauze,Secured with Tape -Aquacel Extra 1 1 1 Pain Scale: 0-10 Numeric Is Patient Pain Free? Yes Yes Yes - Visit Discharge Discharge Condition Stable Stable Stable Ambulatory Status Ambulatory Ambulatory Ambulatory Transportation Private Auto Private Auto Private Auto Medication Reconcilliation completed & No provided to patient/care provider Clinical Summary of Care Provided Yes Yes Assessment/Plan Assessment/Plan (1) Delayed wound healing: CODE(S): T14.8XXD - Other injury of unspecified body region, subsequent encounter (2) Chronic ulcer of left foot with fat layer exposed: CODE(S): L97.522 - Non-pressure chronic ulcer of other part of left foot with fat layer exposed (3) HTN (hypertension): CODE(S): I10 - Essential (primary) hypertension QUALIFIERS: Hypertension type: primary hypertension Qualified Code(s): I10 - Essential (primary) hypertension (4) Diabetic ulcer of foot associated with diabetes mellitus due to underlying condition, with fat layer exposed: CODE(S): E08.621 - Diabetes mellitus due to underlying condition with foot ulcer; L97.502 - Non-pressure chronic ulcer of other part of unspecified foot with fat layer exposed QUALIFIERS: Diabetic foot ulcer location: midfoot Laterality: left Qualified Code(s): E08.621 - Diabetes mellitus due to underlying condition with foot ulcer; L97.422 - Non-pressure chronic ulcer of left heel and midfoot with fat layer exposed (5) Type 2 diabetes mellitus without complications: CODE(S): E11.9 - Type 2 diabetes mellitus without complications QUALIFIERS: Diabetes mellitus yarding supervisor insulin use: without senior living 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 It has been stable since his last visit but callus formation is still present. I suspect noncompliance of offloading to be a major factor in his delayed healing. At home wound-care instructions: Wash ulcer daily with antibacterial soap and water. Will have him continue to use Aquacel Extra to ulcer and cover with gauze and roll gauze to secure daily. Keep dressing clean and dry. His work boot was modified on 07/03/23 and again 12/25/23 to try to offload pressure. He retired September 22, 2024. Discussed possibly using TCC for offloading in near future but he is unable to do so due to work. We also discussed that there may be a single vessel narrowing that could be preventing healing and talked about possible referral to Vascular surgery to do CTA runoff. Also discussed surgical procedure proposed by podiatry to shave exostosis of bone that is likely causing ulcer and he declines at this time. Off-loading: The patient was instructed to avoid pressure and friction on the affected areas. Reposition every 2 hours at minimum. Avoid prolonged standing and/or dangling of legs. When seated, feet should be elevated at chest level. Frequent ambulation is encouraged. Diet: Patient encouraged to increase protein intake while taking caution to avoid high carbohydrate and/or sugar intake. Labs/cultures/imaging: Wound culture positive 03/27/23 and is currently on Doxycycline. Wound culture showed Staph and Strep and he was treated with Keflex based on sensitivities and use topical Gentamicin for 3 weeks. Wound culture done 09/18/23 was positive for staph epidermidis. He has been on cephalexin and doxycycline. Wound culture was positive for Enterococcus and Linezolid completed. Wound culture was positive and he will continue Flagyl, Cipro and hold cefdinir and decrease doxycycline to once/day. His put him back on Keflex and doxycycline when his ulcer worsened over . Wound culture on 04/29/24 was positive for Staph epidermidis and he completed Linezolid and is back to taking chronic doxycyline and on Bactrim. Wound culture taken showed Corynebacterium and we discussed starting him on Augmentin but are hesitant to do this because of a PCN allergy that he reports as a child but he does not recall the reaction. XR of foot was negative. MRI negative for osteomyelitis and arterial testing negative for arterial insufficiency. Repeat XR of foot was negative. XR ordered again to r/o osteomyelitis and was negative. Follow-up: Return in 1 week for wound care follow up. Return sooner or report to the emergency room should symptoms worsen, or new symptoms arise. Note: [employer] speech recognition unified communications engineer software was used to create portions of this document. Sound-alike and misspelled words, as well as other unified communications engineer errors may be contained in the documentation.
[2024-10-21 10:15] VITALS: BP 125/56; PULSE 72; RESP 18; TEMP 36.4
--- NOTE | 2024-10-21 14:00 | PCM.WC.PN ---
History of Present Illness Date of Service: 10/21/24 Chief Complaint: nonhealing wound left plantar foot History of Wound: Jose J is a 68 y/o gentleman that presents to the wound healing center for evaluation and treatment of a wound to his left plantar foot. He is a patient of Dr. Giordano. He has had a wound to this same area in February 2019 and was seen at [facility] and treated there for 9 weeks with Aquacel and was placed in a wedge shoe to offload his foot. He was treated for this same wound for almost a year at this wound center and was healed in May 2020 and returned in July and was treated until September. He had undergone vascular testing at [facility] in 2018 and this has been repeated 09/2023 without significant arterial disease. 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 He and his did not want to do surgery. He has managed to do well over the last 2 years until the end of October when the area became painful again and began draining. He saw Dr. Giordano and was treated with doxycycline which helped and they had been applying Aquacel that they had from previous treatment but it has not improved. He was treated with a second course of doxycycline and then referred here for treatment. He is still working and walking on his foot in a steel toe boot 4 days a week for 10 hours. He had an offloading pad in his work boot previously but no longer has this in place. He denies claudication with walking. He has moderate to heavy drainage from the ulcer. He has not had any wound cultures taken. 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 He denies fever, chill, nausea, vomiting, redness or odor. Subjective Subjective Jose J returns today for follow up of an ulcer on the bottom of his left foot. His ulcer and drainage are relatively unchanged since last visit. His most recent wound culture was positive for Corynebacterium striatum and negative for anaerobic bacteria. He is on Bactrim DS and doxycycline. He denies fever, chills or odor. He had MRI on 10/02/23 which did not show any osteomyelitis of his foot. Arterial testing was also done and did not show any evidence of arterial insufficiency. HgbA1C was 6.3% on 07/2024. Objective Data Objective Data Vital Signs: Vital Signs Temp Pulse Resp BP O2 Del Method 97.5 F L 72 18 125/56 H Room Air 10/21/24 10:15 10/21/24 10:15 10/21/24 10:15 10/21/24 10:15 10/14/24 09:50 Oxygen Delivery Method Room Air Physical Exam Const alert, oriented x3 and no apparent distress General Appearance: cooperative and comfortable HEENT normocephalic and head/scalp atraumatic Resp normal respiratory effort Effort and Inspection: able to speak in complete sentences Auscultation: rales, rhonchi and diminished lung sounds Cardio regular rate and regular rhythm Skin Wounds: wounds noted Wound Narrative: as in clinical panel, mild callus formation surrounding ulcer, no cellulitis or odor Psych mental status grossly normal, thought process normal, cooperative and affect normal Debridement Note Debridement Note Wound debrided: left lateral plantar ulcer Laterality: Left Wound Grade/Stage: Luther grade 1 Type of Debridement: Excisional debridement Anesthesia Used: 5% Lidocaine Gel Depth: Down to and including healthy tissue and in the subcutaneous layer Percentage of wound debrided: 100 Instrument Used: #15 blade and Forceps Tissue Removed: Yellow slough, devitalized tissue Severity: Fat Layer Exposed Amount of bleeding with debridement: Moderate Bleeding Controlled with: Pressure and Silver Nitrate Patient tolerated procedure: Patient tolerated procedure well Post-Debridement Measurements and Additional Note: Post-Debridement Measurements/Treatment - Nurse 1 - General Ulcer Assessment Start: 09/30/24 10:10 Freq: Status: Active Protocol: KANIKA Activity Type Activity Date Activity User E-sign Co-sign Detail Recorded Client Recorded Date Recorded By Document 09/30/24 10:10 KW [id number] 09/30/24 10:15 KW Document 10/07/24 09:56 KW [id number] 10/07/24 09:59 KW Document 10/14/24 09:50 KW [id number] 10/14/24 09:53 KW Document 10/21/24 10:15 RB [id number] 10/21/24 10:16 RB 09/30/24 10/07/24 10/14/24 10:10 09:56 09:50 - Today's Visit Information Type of service Follow-up Visit Follow-up Visit Follow-up Visit (Physician/HAMMER OPERATOR (Physician/HAMMER OPERATOR (Physician/HAMMER OPERATOR ) ) ) Arrival Mode Ambulatory Ambulatory Ambulatory Transfer Assistance Accompanied by Patient Identification Verified (Name & Yes Yes Yes ) Patient Requires Transmission-Based Precautions Vital Signs Temperature (97.8 F-99.1 F) 97.4 F L 97.3 F L 97.3 F L Temperature Source Temporal Temporal Temporal Pulse Rate (60-100) 80 77 83 Pulse Location Monitor Monitor Monitor Respiratory Rate (12-18) 16 16 16 Respiratory rate source Observation Observation Observation Oxygen Delivery Method Room Air Room Air Room Air Blood Pressure (90/60-120/80) 133/56 H 133/64 H 125/46 H Blood Pressure Mean (mm Hg) 81 87 72 Source Monitor Monitor Monitor Position Semi-Fowlers Semi-Fowlers Sitting Blood Pressure Location Right Arm Left Arm Left Arm History Since Last Visit- (Skip if this is Patient's initial visit) Have you changed medications since your No No No last visit? Any new allergies or adverse reactions No No No Had a fall/change in ADL's that may No No No increase risk of falls Signs or symptoms of abuse and/or No No No neglect since last visit Have you been in the hospital since your No No No last visit? Has dressing in place as prescribed Yes Yes Yes Has compression in place as prescribed N/A N/A N/A Has offloadiing in place as prescribed N/A N/A N/A Experienced any changes in pain level or No No No management Left Footwear Regular Shoe Regular Shoe Regular Shoe Right Footwear Regular Shoe Regular Shoe Regular Shoe Pain Scale: 0-10 Numeric Is Patient Pain Free? Yes Yes Yes 10/21/24 10:15 - Today's Visit Information Type of service Follow-up Visit (Physician/HAMMER OPERATOR ) Arrival Mode Ambulatory Transfer Assistance None Accompanied by Patient Identification Verified (Name & No ) Patient Requires Transmission-Based No Precautions Vital Signs Temperature (97.8 F-99.1 F) 97.5 F L Temperature Source Temporal Pulse Rate (60-100) 72 Pulse Location Monitor Respiratory Rate (12-18) 18 Respiratory rate source Observation Oxygen Delivery Method Blood Pressure (90/60-120/80) 125/56 H Blood Pressure Mean (mm Hg) 79 Source Monitor Position Semi-Fowlers Blood Pressure Location Left Arm History Since Last Visit- (Skip if this is Patient's initial visit) Have you changed medications since your No last visit? Any new allergies or adverse reactions No Had a fall/change in ADL's that may No increase risk of falls Signs or symptoms of abuse and/or No neglect since last visit Have you been in the hospital since your No last visit? Has dressing in place as prescribed Yes Has compression in place as prescribed N/A Has offloadiing in place as prescribed N/A Experienced any changes in pain level or No management Left Footwear Regular Shoe Right Footwear Regular Shoe Pain Scale: 0-10 Numeric Is Patient Pain Free? Yes WC - Nurse 1 - General Ulcer Measurement Start: 09/30/24 10:10 Freq: Status: Active Protocol: Activity Type Activity Date Activity User E-sign Co-sign Detail Recorded Client Recorded Date Recorded By Document 09/30/24 10:10 KW [id number] 09/30/24 10:15 KW Document 10/07/24 09:56 KW [id number] 10/07/24 09:59 KW Document 10/14/24 09:50 KW [id number] 10/14/24 09:53 KW Document 10/21/24 10:15 RB [id number] 10/21/24 10:16 RB 09/30/24 10/07/24 10/14/24 10:10 09:56 09:50 Wound Center Nurse 1 #3 L Lateral Plantar Foot -Combined with other wound -Current Size (cm) - Length 1 1.2 1 -Current Size (cm) - Width 0.6 0.8 0.8 -Current Size (cm) - Depth 0.1 0.1 0.1 -Total Square Cm 0.6 0.96 0.8 -Date of Last Picture (Recall this 09/30/24 field) -Photo Taken -Tunneling -Undermining/Tunneling -Circular Undermining -Exudate Amt Small Medium Small -Exudate Type Serosanguineous Serosanguineous Serosanguineous -Wound Margin Distinct, Distinct, Distinct, Outline Outline Outline Attached Attached Attached -Granulation Amt Large (67-100%) Large (67-100%) Large (67-100%) -Granulation Quality [place] -Slough/Fibrin -Necrosis Amt -Necrotic Tissue Type -Structure Exposed -Texture (Flory-wound Skin Appearance) Assessed,Callus Callus Assessed,Callus -Moisture (Flory-wound Skin Appearance) Assessed Assessed Assessed -Color (Flory-wound Skin Appearance) Assessed Assessed Assessed -Temperature (Flory-wound Skin No Abnormality No Abnormality No Abnormality Appearance) (Pt Warm) (Pt Warm) (Pt Warm) -Tenderness on Palpation (Flory-wound No No No Skin Appearance) -Ulcer Cleansing Rinsed/ Rinsed/ Rinsed/ Irrigated with Irrigated with Irrigated with Saline Saline Saline -Foul Odor after Cleansing No No No -Anesthetic Used 5% Lidocaine 5% Lidocaine 5% Lidocaine Gel Gel Gel 10/21/24 10:15 Wound Center Nurse 1 #3 L Lateral Plantar Foot -Combined with other wound No -Current Size (cm) - Length 1.6 -Current Size (cm) - Width 0.6 -Current Size (cm) - Depth 0.2 -Total Square Cm 0.96 -Date of Last Picture (Recall this field) -Photo Taken Yes -Tunneling No -Undermining/Tunneling No -Circular Undermining No -Exudate Amt Medium -Exudate Type Serosanguineous -Wound Margin Thickened & Rolled Under -Granulation Amt Medium (34-66%) -Granulation Quality [place] -Slough/Fibrin Yes -Necrosis Amt Small (1-33%) -Necrotic Tissue Type Adherent Slough -Structure Exposed N/A -Texture (Flory-wound Skin Appearance) Callus -Moisture (Flory-wound Skin Appearance) No Abnormality -Color (Flory-wound Skin Appearance) Assessed -Temperature (Flory-wound Skin No Abnormality Appearance) (Pt Warm) -Tenderness on Palpation (Flory-wound No Skin Appearance) -Ulcer Cleansing Wound Cleanser -Foul Odor after Cleansing No -Anesthetic Used 5% Lidocaine Gel WC - Nurse 2 - General Ulcer CM Notes Start: 09/30/24 10:10 Freq: Status: Active Protocol: Activity Type Activity Date Activity User E-sign Co-sign Detail Recorded Client Recorded Date Recorded By Document 09/30/24 11:20 [id number] 09/30/24 11:36 Document 10/07/24 10:31 [id number] 10/07/24 10:44 GM Document 10/14/24 10:33 [id number] 10/14/24 10:48 Document 10/21/24 11:20 [id number] 10/21/24 11:33 09/30/24 10/07/24 10/14/24 11:20 10:31 10:33 Wound Center Nurse 2 #3 L Lateral Plantar Foot -Time 11:20 10:32 10:33 -Correct Patient Yes Yes Yes -Correct Side, Site, Position Yes Yes Yes -Correct Procedure Yes Yes Yes -Procedure Performed Yes Yes Yes -Type of Procedure Debridement Debridement Debridement -Clinical Debridement Subcutaneous Subcutaneous Subcutaneous -Tissue Removed Subcutaneous Subcutaneous Subcutaneous -Post Debridement (cm) - Length 2.2 2.0 2.2 -Post Debridement (cm) - Width 1.0 0.9 0.8 -Post Debridement (cm) - Depth 0.2 0.1 0.2 -Total Square (Post) (cm) 2.20 1.80 1.76 -Area of Debridement (cm) - Length 2.2 2.0 2.2 -Area of Debridement (cm) - Width 1.0 0.9 0.8 -Total Square (Area) (cm) 2.20 1.80 1.76 -Tunneling No No No -Undermining/Tunneling No No No -Circular Undermining No No No -Wound/Ulcer Outcome Not Healed Not Healed Not Healed -Ulcer Cleansing Rinsed/ Rinsed/ Rinsed/ Irrigated with Irrigated with Irrigated with Saline Saline Saline -Foul Odor after Cleansing No No No -Bioengineered Tissue No No No -Bleeding Controlled with Pressure Pressure Pressure,Silver Nitrate ($) -Treatment Response Procedure Procedure Procedure Tolerated Well Tolerated Well Tolerated Well -Offloading No No No -Debridement - Subq, 1st 20sq cm Yes Yes Yes Pain Scale: 0-10 Numeric Is Patient Pain Free? Yes Yes Yes 10/21/24 11:20 Wound Center Nurse 2 #3 L Lateral Plantar Foot -Time 11:20 -Correct Patient Yes -Correct Side, Site, Position Yes -Correct Procedure Yes -Procedure Performed Yes -Type of Procedure Debridement -Clinical Debridement Subcutaneous -Tissue Removed Subcutaneous -Post Debridement (cm) - Length 2.0 -Post Debridement (cm) - Width 0.8 -Post Debridement (cm) - Depth 0.2 -Total Square (Post) (cm) 1.60 -Area of Debridement (cm) - Length 2.0 -Area of Debridement (cm) - Width 0.8 -Total Square (Area) (cm) 1.60 -Tunneling No -Undermining/Tunneling No -Circular Undermining No -Wound/Ulcer Outcome Not Healed -Ulcer Cleansing Not Cleansed -Foul Odor after Cleansing No -Bioengineered Tissue No -Bleeding Controlled with Pressure -Treatment Response Procedure Tolerated Well -Offloading No -Debridement - Subq, 1st 20sq cm Yes Pain Scale: 0-10 Numeric Is Patient Pain Free? Yes - Nurse 3 - General Ulcer D/C NN Start: 09/30/24 10:10 Freq: Status: Active Protocol: Activity Type Activity Date Activity User E-sign Co-sign Detail Recorded Client Recorded Date Recorded By Document 09/30/24 11:42 KW [id number] 09/30/24 11:43 KW Document 10/07/24 10:51 GM [id number] 10/07/24 10:52 GM Document 10/14/24 11:05 DS [id number] 10/14/24 11:11 DS Document 10/21/24 11:45 RB [id number] 10/21/24 11:45 RB 09/30/24 10/07/24 10/14/24 11:42 10:51 11:05 Wound Care Center Nurse 3 #3 L Lateral Plantar Foot -Ulcer Cleansing Not Cleansed -Foul Odor after Cleansing No -Primary Dressing Applied Aquacel Extra Aquacel Extra Aquacel Extra -Primary Dressing Covered/Secured with Dry Gauze, Dry Gauze, Dry Gauze,Dry Secured with Secured with Gauze & Roll Tape Tape Gauze,Secured with Tape -Aquacel Extra 1 1 1 Treatment Response Pain Scale: 0-10 Numeric Is Patient Pain Free? Yes Yes Yes WC - Visit Discharge Discharge Condition Stable Stable Stable Ambulatory Status Ambulatory Ambulatory Ambulatory Transportation Private Auto Private Auto Private Auto Accompanied by Medication Reconcilliation completed & No provided to patient/care provider Clinical Summary of Care Provided Yes Yes 10/21/24 11:45 Wound Care Center Nurse 3 #3 L Lateral Plantar Foot -Ulcer Cleansing Rinsed/ Irrigated with Saline -Foul Odor after Cleansing -Primary Dressing Applied Aquacel Extra -Primary Dressing Covered/Secured with Dry Gauze & Roll Gauze, Secured with Tape -Aquacel Extra 1 Treatment Response Procedure Tolerated Well Pain Scale: 0-10 Numeric Is Patient Pain Free? Yes WC - Visit Discharge Discharge Condition Stable Ambulatory Status Ambulatory Transportation Private Auto Accompanied by Medication Reconcilliation completed & No provided to patient/care provider Clinical Summary of Care Provided Yes Assessment/Plan Assessment/Plan (1) Delayed wound healing: CODE(S): T14.8XXD - Other injury of unspecified body region, subsequent encounter (2) Chronic ulcer of left foot with fat layer exposed: CODE(S): L97.522 - Non-pressure chronic ulcer of other part of left foot with fat layer exposed (3) HTN (hypertension): CODE(S): I10 - Essential (primary) hypertension QUALIFIERS: Hypertension type: primary hypertension Qualified Code(s): I10 - Essential (primary) hypertension (4) Diabetic ulcer of foot associated with diabetes mellitus due to underlying condition, with fat layer exposed: CODE(S): E08.621 - Diabetes mellitus due to underlying condition with foot ulcer; L97.502 - Non-pressure chronic ulcer of other part of unspecified foot with fat layer exposed QUALIFIERS: Diabetic foot ulcer location: midfoot Laterality: left Qualified Code(s): E08.621 - Diabetes mellitus due to underlying condition with foot ulcer; L97.422 - Non-pressure chronic ulcer of left heel and midfoot with fat layer exposed (5) Type 2 diabetes mellitus without complications: CODE(S): E11.9 - Type 2 diabetes mellitus without complications QUALIFIERS: Diabetes mellitus usp insulin use: without usp 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 It has been stable since his last visit but callus formation is still present. I suspect noncompliance of offloading to be a major factor in his delayed healing. At home wound-care instructions: Wash ulcer daily with antibacterial soap and water. Will have him continue to use Aquacel Extra to ulcer and cover with gauze and roll gauze to secure daily. Keep dressing clean and dry. His work boot was modified on 07/03/23 and again 12/25/23 to try to offload pressure. He retired September 22, 2024. Discussed possibly using TCC for offloading in near future but he is unable to do so due to work. We also discussed that there may be a single vessel narrowing that could be preventing healing and talked about possible referral to Vascular surgery to do CTA runoff. He declines at this time. Also discussed surgical procedure proposed by podiatry to shave exostosis of bone that is likely causing ulcer and he declines at this time. Off-loading: The patient was instructed to avoid pressure and friction on the affected areas. Reposition every 2 hours at minimum. Avoid prolonged standing and/or dangling of legs. When seated, feet should be elevated at chest level. Frequent ambulation is encouraged. Diet: Patient encouraged to increase protein intake while taking caution to avoid high carbohydrate and/or sugar intake. Labs/cultures/imaging: Wound culture positive 03/27/23 and is currently on Doxycycline. Wound culture showed Staph and Strep and he was treated with Keflex based on sensitivities and use topical Gentamicin for 3 weeks. Wound culture done 09/18/23 was positive for staph epidermidis. He has been on cephalexin and doxycycline. Wound culture was positive for Enterococcus and Linezolid completed. Wound culture was positive and he will continue Flagyl, Cipro and hold cefdinir and decrease doxycycline to once/day. His put him back on Keflex and doxycycline when his ulcer worsened over . Wound culture on 04/29/24 was positive for Staph epidermidis and he completed Linezolid and is back to taking chronic doxycyline and on Bactrim. Wound culture taken showed Corynebacterium and we discussed starting him on Augmentin but are hesitant to do this because of a PCN allergy that he reports as a child but he does not recall the reaction. XR of foot was negative. MRI negative for osteomyelitis and arterial testing negative for arterial insufficiency. Repeat XR of foot was negative. XR ordered again to r/o osteomyelitis and was negative. Follow-up: Return in 1 week for wound care follow up. Return sooner or report to the emergency room should symptoms worsen, or new symptoms arise. Note: [employer] speech recognition motorcycle service technician software was used to create portions of this document. Sound-alike and misspelled words, as well as other motorcycle service technician errors may be contained in the documentation.
--- NOTE | 2024-10-24 11:48 | WC ---
PHOTO 10/21/24 JT
== END 2024-10-22 23:59 | disposition home or self-care (01) ==
LOC: WC 10:00
PROVIDERS: PCP Family Medicine; Referring Provider Family Medicine; Visit Provider Family Medicine
DX: E11.621 Type 2 diabetes mellitus with foot ulcer (principal); L97.422 Non-pressure chronic ulcer of left heel and midfoot with fat layer exposed; I10 Essential (primary) hypertension; Z79.899 Other long term (current) drug therapy
CPT/HCPCS: 11042

== ENCOUNTER 2024-11-18 10:00 | Outpatient (RCR) | payer BC, MEDICARE, OTHER, SELFPAY ==
[2024-10-23 00:15] VITALS: BP 125/56; PULSE 72; RESP 18; TEMP 36.4
[2024-10-28 09:48] VITALS: BP 121/74; PULSE 79; RESP 16; TEMP 36.4
--- NOTE | 2024-10-28 13:04 | PN.PCM_ITS ---
History of Present Illness Date of Service: 10/28/24 Chief Complaint: nonhealing wound left plantar foot History of Wound: Jose J is a 68 y/o gentleman that presents to the wound healing center for evaluation and treatment of a wound to his left plantar foot. He is a patient of Dr. Giordano. He has had a wound to this same area in February 2019 [address] seen at [facility] and treated there for 9 weeks with Aquacel and was placed in a wedge shoe to offload his foot. He was treated for this same wound for almost a year at this wound center and was healed in May 2020 and returned in July and was treated until September. He had undergone vascular testing at [facility] in 2018 and this has been repeated 09/2023 without significant arterial disease. 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 He and his did not want to do surgery. He has managed to do well over the last 2 years until the end of October when the area became painful again and began draining. He saw Dr. Giordano and was treated with doxycycline which helped and they had been applying Aquacel that they had from previous treatment but it has not improved. He was treated with a second course of doxycycline and then referred here for treatment. He is still working and walking on his foot in a steel toe boot 4 days a week for 10 hours. He had an offloading pad in his work boot previously but no longer has this in place. He denies claudication with walking. He has moderate to heavy drainage from the ulcer. He has not had any wound cultures taken. 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 He denies fever, chill, nausea, vomiting, redness or odor. Subjective Subjective Jose J returns today for follow up of an ulcer on the bottom of his left foot. His ulcer and drainage are minimally changed since last visit. He denies fever, chills or odor. He had MRI on 10/02/23 which did not show any osteomyelitis of his foot. Arterial testing was also done and did not show any evidence of arterial insufficiency. HgbA1C was 6.3% on 07/2024. Objective Data Objective Data Vital Signs: Vital Signs Temp Pulse Resp BP O2 Del Method 97.5 F L 79 16 121/74 H Room Air 10/28/24 09:48 10/28/24 09:48 10/28/24 09:48 10/28/24 09:48 10/28/24 09:48 Oxygen Delivery Method Room Air Physical Exam Const alert, oriented x3 and no apparent distress General Appearance: cooperative and comfortable HEENT normocephalic and head/scalp atraumatic Resp normal respiratory effort Effort and Inspection: able to speak in complete sentences Auscultation: rales, rhonchi and diminished lung sounds Cardio regular rate and regular rhythm Skin Wounds: wounds noted Wound Narrative: as in clinical panel, mild callus formation surrounding ulcer, no cellulitis or odor Psych mental status grossly normal, thought process normal, cooperative and affect normal Debridement Note Debridement Note Wound debrided: left lateral plantar ulcer Laterality: Left Wound Grade/Stage: Luther grade 1 Type of Debridement: Excisional debridement Anesthesia Used: 5% Lidocaine Gel Depth: Down to and including healthy tissue and in the subcutaneous layer Percentage of wound debrided: 100 Instrument Used: #15 blade and Forceps Tissue Removed: Yellow slough, devitalized tissue Severity: Fat Layer Exposed Amount of bleeding with debridement: Mild Bleeding Controlled with: Pressure Patient tolerated procedure: Patient tolerated procedure well Post-Debridement Measurements and Additional Note: Post-Debridement Measurements/Treatment - Nurse 1 - General Ulcer Assessment Start: 10/28/24 09:48 Freq: Status: Active Protocol: WC.[place] Activity Type Activity Date Activity User E-sign Co-sign Detail Recorded Client Recorded Date Recorded By Document 10/28/24 09:48 [id number] 10/28/24 09:51 10/28/24 09:48 - Today's Visit Information Type of service Follow-up Visit (Physician/VASCULAR TECHNICIAN ) Arrival Mode Ambulatory Accompanied by Patient Identification Verified (Name & Yes ) Vital Signs Temperature (97.8 F-99.1 F) 97.5 F L Temperature Source Temporal Pulse Rate (60-100) 79 Pulse Location Monitor Respiratory Rate (12-18) 16 Respiratory rate source Observation Oxygen Delivery Method Room Air Blood Pressure (90/60-120/80) 121/74 H Blood Pressure Mean (mm Hg) 89 Source Monitor Position Semi-Fowlers Blood Pressure Location Left Arm History Since Last Visit- (Skip if this is Patient's initial visit) Have you changed medications since your No last visit? Any new allergies or adverse reactions No Had a fall/change in ADL's that may No increase risk of falls Signs or symptoms of abuse and/or No neglect since last visit Have you been in the hospital since your No last visit? Has dressing in place as prescribed Yes Has compression in place as prescribed N/A Has offloadiing in place as prescribed N/A Experienced any changes in pain level or No management Left Footwear Regular Shoe Right Footwear Regular Shoe Pain Scale: 0-10 Numeric Is Patient Pain Free? Yes - Nurse 1 - General Ulcer Measurement Start: 10/28/24 09:48 Freq: Status: Active Protocol: Activity Type Activity Date Activity User E-sign Co-sign Detail Recorded Client Recorded Date Recorded By Document 10/28/24 09:48 [id number] 10/28/24 09:51 10/28/24 09:48 Wound Center Nurse 1 #3 L Lateral Plantar Foot -Current Size (cm) - Length 0.6 -Current Size (cm) - Width 0.5 -Current Size (cm) - Depth 0.1 -Total Square Cm 0.30 -Date of Last Picture (Recall this 10/28/24 field) -Exudate Amt Small -Exudate Type Serosanguineous -Wound Margin Distinct, Outline Attached -Granulation Amt Large (67-100%) -Granulation Quality [place],Red -Texture (Flory-wound Skin Appearance) Callus -Moisture (Flory-wound Skin Appearance) Assessed -Color (Flory-wound Skin Appearance) Assessed -Temperature (Flory-wound Skin No Abnormality Appearance) (Pt Warm) -Tenderness on Palpation (Flory-wound No Skin Appearance) -Ulcer Cleansing Soap and Water -Foul Odor after Cleansing No -Anesthetic Used 5% Lidocaine Gel - Nurse 2 - General Ulcer CM Notes Start: 10/28/24 09:48 Freq: Status: Active Protocol: Activity Type Activity Date Activity User E-sign Co-sign Detail Recorded Client Recorded Date Recorded By Document 10/28/24 11:15 [id number] 10/28/24 11:25 10/28/24 11:15 Wound Center Nurse 2 -Time 11:17 -Correct Patient Yes -Correct Side, Site, Position Yes -Correct Procedure Yes -Procedure Performed Yes -Type of Procedure Debridement -Clinical Debridement Subcutaneous -Tissue Removed Subcutaneous -Post Debridement (cm) - Length 1.5 -Post Debridement (cm) - Width 0.7 -Post Debridement (cm) - Depth 0.1 -Total Square (Post) (cm) 1.05 -Area of Debridement (cm) - Length 1.5 -Area of Debridement (cm) - Width 0.7 -Total Square (Area) (cm) 1.05 -Tunneling No -Undermining/Tunneling No -Circular Undermining No -Wound/Ulcer Outcome Not Healed -Ulcer Cleansing Rinsed/ Irrigated with Saline -Foul Odor after Cleansing No -Bioengineered Tissue No -Bleeding Controlled with Pressure -Treatment Response Procedure Tolerated Well -Offloading No -Debridement - Subq, 1st 20sq cm Yes Pain Scale: 0-10 Numeric Is Patient Pain Free? Yes - Nurse 3 - General Ulcer D/C NN Start: 10/28/24 09:48 Freq: Status: Active Protocol: Activity Type Activity Date Activity User E-sign Co-sign Detail Recorded Client Recorded Date Recorded By Document 10/28/24 11:47 [id number] 10/28/24 11:48 10/28/24 11:47 Wound Care Center Nurse 3 #3 L Lateral Plantar Foot -Ulcer Cleansing Rinsed/ Irrigated with Saline -Primary Dressing Applied Aquacel Extra -Primary Dressing Covered/Secured with Dry Gauze & Roll Gauze, Secured with Tape -Aquacel Extra 1 Pain Scale: 0-10 Numeric Is Patient Pain Free? Yes - Visit Discharge Discharge Condition Stable Ambulatory Status Ambulatory Transportation Private Auto Medication Reconcilliation completed & No provided to patient/care provider Clinical Summary of Care Provided Yes Assessment/Plan Assessment/Plan (1) Delayed wound healing: CODE(S): T14.8XXD - Other injury of unspecified body region, subsequent encounter (2) Chronic ulcer of left foot with fat layer exposed: CODE(S): L97.522 - Non-pressure chronic ulcer of other part of left foot with fat layer exposed (3) HTN (hypertension): CODE(S): I10 - Essential (primary) hypertension QUALIFIERS: Hypertension type: primary hypertension Qualified Code(s): I10 - Essential (primary) hypertension (4) Diabetic ulcer of foot associated with diabetes mellitus due to underlying condition, with fat layer exposed: CODE(S): E08.621 - Diabetes mellitus due to underlying condition with foot ulcer; L97.502 - Non-pressure chronic ulcer of other part of unspecified foot with fat layer exposed QUALIFIERS: Diabetic foot ulcer location: midfoot Laterality: left Qualified Code(s): E08.621 - Diabetes mellitus due to underlying condition with foot ulcer; L97.422 - Non-pressure chronic ulcer of left heel and midfoot with fat layer exposed (5) Type 2 diabetes mellitus without complications: CODE(S): E11.9 - Type 2 diabetes mellitus without complications QUALIFIERS: Diabetes mellitus terminal supervisor insulin use: without terminal supervisor use Qualified Code(s): E11.9 - Type 2 diabetes mellitus without compli cations PLAN: Plan Debridement performed today in clinic as annotated above. It has been stable since his last visit but callus formation is still present. I suspect noncompliance of offloading to be a major factor in his delayed healing. At home wound-care instructions: Wash ulcer daily with antibacterial soap and water. Will have him continue to use Aquacel Extra to ulcer and cover with gauze and roll gauze to secure daily. Keep dressing clean and dry. His work boot was modified on 07/03/23 and again 12/25/23 to try to offload pressure. He retired September 22, 2024. Discussed possibly using TCC for offloading in near future but he is unable to do so due to work. We also discussed that there may be a single vessel narrowing that could be preventing healing and talked about possible referral to Vascular surgery to do CTA runoff. He declines at this time. Also discussed surgical procedure proposed by podiatry to shave exostosis of bone that is likely causing ulcer and he declines at this time. Off-loading: The patient was instructed to avoid pressure and friction on the affected areas. Reposition every 2 hours at minimum. Avoid prolonged standing and/or dangling of legs. When seated, feet should be elevated at chest level. Frequent ambulation is encouraged. Diet: Patient encouraged to increase protein intake while taking caution to avoid high carbohydrate and/or sugar intake. Labs/cultures/imaging: Wound culture positive 03/27/23 and is currently on Doxycycline. Wound culture showed Staph and Strep and he was treated with Keflex based on sensitivities and use topical Gentamicin for 3 weeks. Wound culture done 09/18/23 was positive for staph epidermidis. He has been on cephalexin and doxycycline. Wound culture was positive for Enterococcus and Linezolid completed. Wound culture was positive and he will continue Flagyl, Cipro and hold cefdinir and decrease doxycycline to once/day. His put him back on Keflex and doxycycline when his ulcer worsened over . Wound culture on 04/29/24 was positive for Staph epidermidis and he completed Linezolid and is back to taking chronic doxycyline and on Bactrim. Wound culture taken showed Corynebacterium and we discussed starting him on Augmentin but are hesitant to do this because of a PCN allergy that he reports as a child but he does not recall the reaction. XR of foot was negative. MRI negative for osteomyelitis and arterial testing negative for arterial insufficiency. Repeat XR of foot was negative. XR ordered again to r/o osteomyelitis and was negative. Follow-up: Return in 1 week for wound care follow up. Return sooner or report to the emergency room should symptoms worsen, or new symptoms arise. Note: [employer] speech recognition third rigger software was used to create portions of this document. Sound-alike and misspelled words, as well as other third rigger errors may be contained in the documentation.
--- NOTE | 2024-10-31 08:32 | WC ---
PHOTO 10/28/24 LEFT LATERAL PLANTAR
[2024-11-04 09:50] VITALS: BP 112/74; PULSE 79; RESP 16; TEMP 36.6
--- NOTE | 2024-11-04 14:17 | PN.PCM_ITS ---
History of Present Illness Date of Service: 11/04/24 Chief Complaint: nonhealing wound left plantar foot History of Wound: Jose J is a 68 y/o gentleman that presents to the wound healing center for evaluation and treatment of a wound to his left plantar foot. He is a patient of Dr. Giordano. He has had a wound to this same area in February 2019 and was seen at [facility] and treated there for 9 weeks with Aquacel and was placed in a wedge shoe to offload his foot. He was treated for this same wound for almost a year at this wound center and was healed in May 2020 and returned in July and was treated until September. He had undergone vascular testing at [facility] in 2018 and this has been repeated 09/2023 without significant arterial disease. 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 He and his did not want to do surgery. He has managed to do well over the last 2 years until the end of October when the area became painful again and began draining. He saw Dr. Giordano and was treated with doxycycline which helped and they had been applying Aquacel that they had from previous treatment but it has not improved. He was treated with a second course of doxycycline and then referred here for treatment. He is still working and walking on his foot in a steel toe boot 4 days a week for 10 hours. He had an offloading pad in his work boot previously but no longer has this in place. He denies claudication with walking. He has moderate to heavy drainage from the ulcer. He has not had any wound cultures taken. 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 He denies fever, chill, nausea, vomiting, redness or odor. Subjective Subjective Jose J returns today for follow up of an ulcer on the bottom of his left foot. His ulcer and drainage are minimally changed since last visit. He denies fever, chills or odor. He had MRI on 10/02/23 which did not show any osteomyelitis of his foot. Arterial testing was also done and did not show any evidence of arterial insufficiency. HgbA1C was 6.3% on 07/2024. Objective Data Objective Data Vital Signs: Vital Signs Temp Pulse Resp BP O2 Del Method 97.9 F 79 16 112/74 Room Air 11/04/24 09:50 11/04/24 09:50 11/04/24 09:50 11/04/24 09:50 11/04/24 09:50 Oxygen Delivery Method Room Air Physical Exam Const alert, oriented x3 and no apparent distress General Appearance: cooperative and comfortable HEENT normocephalic and head/scalp atraumatic Resp normal respiratory effort Effort and Inspection: able to speak in complete sentences Auscultation: rales, rhonchi and diminished lung sounds Cardio regular rate and regular rhythm Skin Wounds: wounds noted Wound Narrative: as in clinical panel, mild callus formation surrounding ulcer, no cellulitis or odor Psych mental status grossly normal, thought process normal, cooperative and affect normal Debridement Note Debridement Note Wound debrided: left lateral plantar ulcer Laterality: Left Wound Grade/Stage: Luther grade 1 Type of Debridement: Excisional debridement Anesthesia Used: 5% Lidocaine Gel Depth: Down to and including healthy tissue and in the subcutaneous layer Percentage of wound debrided: 100 Instrument Used: 5mm curette and Forceps Tissue Removed: Yellow slough, devitalized tissue Severity: Fat Layer Exposed Amount of bleeding with debridement: Mild Bleeding Controlled with: Pressure Patient tolerated procedure: Patient tolerated procedure well Post-Debridement Measurements and Additional Note: Post-Debridement Measurements/Treatment - Nurse 1 - General Ulcer Assessment Start: 10/28/24 09:48 Freq: Status: Active Protocol: WC.ELSAT Activity Type Activity Date Activity User E-sign Co-sign Detail Recorded Client Recorded Date Recorded By Document 10/28/24 09:48 [id number] 10/28/24 09:51 Document 11/04/24 09:50 [id number] 11/04/24 10:01 KW 10/28/24 11/04/24 09:48 09:50 - Today's Visit Information Type of service Follow-up Visit Follow-up Visit (Physician/SATELLITE TELEVISION INSTALLER (Physician/SATELLITE TELEVISION INSTALLER ) ) Arrival Mode Ambulatory Ambulatory Accompanied by Patient Identification Verified (Name & Yes Yes ) Vital Signs Temperature (97.8 F-99.1 F) 97.5 F L 97.9 F Temperature Source Temporal Temporal Pulse Rate (60-100) 79 79 Pulse Location Monitor Monitor Respiratory Rate (12-18) 16 16 Respiratory rate source Observation Observation Oxygen Delivery Method Room Air Room Air Blood Pressure (90/60-120/80) 121/74 H 112/74 Blood Pressure Mean (mm Hg) 89 86 Source Monitor Monitor Position Semi-Fowlers Semi-Fowlers Blood Pressure Location Left Arm Right Arm History Since Last Visit- (Skip if this is Patient's initial visit) Have you changed medications since your No No last visit? Any new allergies or adverse reactions No No Had a fall/change in ADL's that may No No increase risk of falls Signs or symptoms of abuse and/or No No neglect since last visit Have you been in the hospital since your No No last visit? Has dressing in place as prescribed Yes Yes Has compression in place as prescribed N/A N/A Has offloadiing in place as prescribed N/A N/A Experienced any changes in pain level or No No management Left Footwear Regular Shoe Regular Shoe Right Footwear Regular Shoe Regular Shoe Pain Scale: 0-10 Numeric Is Patient Pain Free? Yes Yes WC - Nurse 1 - General Ulcer Measurement Start: 10/28/24 09:48 Freq: Status: Active Protocol: Activity Type Activity Date Activity User E-sign Co-sign Detail Recorded Client Recorded Date Recorded By Document 10/28/24 09:48 [id number] 10/28/24 09:51 Document 11/04/24 09:50 [id number] 11/04/24 10:01 KW 10/28/24 11/04/24 09:48 09:50 Wound Center Nurse 1 #3 L Lateral Plantar Foot -Current Size (cm) - Length 0.6 1 -Current Size (cm) - Width 0.5 0.8 -Current Size (cm) - Depth 0.1 0.1 -Total Square Cm 0.30 0.8 -Date of Last Picture (Recall this 10/28/24 11/04/24 field) -Exudate Amt Small Medium -Exudate Type Serosanguineous Serosanguineous -Wound Margin Distinct, Distinct, Outline Outline Attached Attached -Granulation Amt Large (67-100%) Large (67-100%) -Granulation Quality [place],Red [place] -Texture (Flory-wound Skin Appearance) Callus Assessed,Callus -Moisture (Flory-wound Skin Appearance) Assessed Assessed -Color (Flory-wound Skin Appearance) Assessed Assessed -Temperature (Flory-wound Skin No Abnormality No Abnormality Appearance) (Pt Warm) (Pt Warm) -Tenderness on Palpation (Flory-wound No No Skin Appearance) -Ulcer Cleansing Soap and Water Soap and Water -Foul Odor after Cleansing No No -Anesthetic Used 5% Lidocaine 5% Lidocaine Gel Gel - Nurse 2 - General Ulcer CM Notes Start: 10/28/24 09:48 Freq: Status: Active Protocol: Activity Type Activity Date Activity User E-sign Co-sign Detail Recorded Client Recorded Date Recorded By Document 10/28/24 11:15 [id number] 10/28/24 11:25 Document 11/04/24 10:53 [id number] 11/04/24 11:17 10/28/24 11/04/24 11:15 10:53 Wound Center Nurse 2 #3 L Lateral Plantar Foot -Time 11:17 10:53 -Correct Patient Yes Yes -Correct Side, Site, Position Yes Yes -Correct Procedure Yes Yes -Procedure Performed Yes Yes -Type of Procedure Debridement Debridement -Clinical Debridement Subcutaneous Subcutaneous -Tissue Removed Subcutaneous Subcutaneous -Post Debridement (cm) - Length 1.5 1.6 -Post Debridement (cm) - Width 0.7 0.8 -Post Debridement (cm) - Depth 0.1 0.1 -Total Square (Post) (cm) 1.05 1.28 -Area of Debridement (cm) - Length 1.5 1.6 -Area of Debridement (cm) - Width 0.7 0.8 -Total Square (Area) (cm) 1.05 1.28 -Tunneling No No -Undermining/Tunneling No No -Circular Undermining No No -Wound/Ulcer Outcome Not Healed Not Healed -Ulcer Cleansing Rinsed/ Rinsed/ Irrigated with Irrigated with Saline Saline -Foul Odor after Cleansing No No -Bioengineered Tissue No No -Bleeding Controlled with Pressure Pressure -Treatment Response Procedure Procedure Tolerated Well Tolerated Well -Offloading No No -Debridement - Subq, 1st 20sq cm Yes Yes Pain Scale: 0-10 Numeric Is Patient Pain Free? Yes Yes - Nurse 3 - General Ulcer D/C NN Start: 10/28/24 09:48 Freq: Status: Active Protocol: Activity Type Activity Date Activity User E-sign Co-sign Detail Recorded Client Recorded Date Recorded By Document 10/28/24 11:47 [id number] 10/28/24 11:48 KW Document 11/04/24 11:28 KW [id number] 11/04/24 11:28 KW 10/28/24 11/04/24 11:47 11:28 Wound Care Center Nurse 3 #3 L Lateral Plantar Foot -Ulcer Cleansing Rinsed/ Irrigated with Saline -Primary Dressing Applied Aquacel Extra Aquacel Extra -Primary Dressing Covered/Secured with Dry Gauze & Dry Gauze, Roll Gauze, Secured with Secured with Tape Tape -Aquacel Extra 1 1 Pain Scale: 0-10 Numeric Is Patient Pain Free? Yes Yes WC - Visit Discharge Discharge Condition Stable Stable Ambulatory Status Ambulatory Ambulatory Transportation Private Auto Private Auto Medication Reconcilliation completed & No No provided to patient/care provider Clinical Summary of Care Provided Yes Yes Assessment/Plan Assessment/Plan (1) Delayed wound healing: CODE(S): T14.8XXD - Other injury of unspecified body region, subsequent encounter (2) Chronic ulcer of left foot with fat layer exposed: CODE(S): L97.522 - Non-pressure chronic ulcer of other part of left foot with fat layer exposed (3) HTN (hypertension): CODE(S): I10 - Essential (primary) hypertension QUALIFIERS: Hypertension type: primary hypertension Qualified Code(s): I10 - Essential (primary) hypertension (4) Diabetic ulcer of foot associated with diabetes mellitus due to underlying condition, with fat layer exposed: CODE(S): E08.621 - Diabetes mellitus due to underlying condition with foot ulcer; L97.502 - Non-pressure chronic ulcer of other part of unspecified foot with fat layer exposed QUALIFIERS: Diabetic foot ulcer location: midfoot Laterality: left Qualified Code(s): E08.621 - Diabetes mellitus due to underlying condition with foot ulcer; L97.422 - Non-pressure chronic ulcer of left heel and midfoot with fat layer exposed (5) Type 2 diabetes mellitus without complications: CODE(S): E11.9 - Type 2 diabetes mellitus without complications QUALIFIERS: Diabetes mellitus nursing home insulin use: without technician terminal and repeater 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 It has been stable since his last visit but callus formation is still present. I suspect noncompliance of offloading to be a major factor in his delayed healing. At home wound-care instructions: Wash ulcer daily with antibacterial soap and water. Will have him continue to use Aquacel Extra to ulcer and cover with gauze and roll gauze to secure daily. Keep dressing clean and dry. His work boot was modified on 07/03/23 and again 12/25/23 to try to offload pressure. He retired September 22, 2024. Discussed possibly using TCC for offloading in near future but he is unable to do so due to work. We also discussed that there may be a single vessel narrowing that could be preventing healing and talked about possible referral to Vascular surgery to do CTA runoff. He declines at this time. Also discussed surgical procedure proposed by podiatry to shave exostosis of bone that is likely causing ulcer and he declines at this time. Off-loading: The patient was instructed to avoid pressure and friction on the affected areas. Reposition every 2 hours at minimum. Avoid prolonged standing and/or dangling of legs. When seated, feet should be elevated at chest level. Frequent ambulation is encouraged. Diet: Patient encouraged to increase protein intake while taking caution to avoid high carbohydrate and/or sugar intake. Labs/cultures/imaging: Wound culture positive 03/27/23 and is currently on Doxycycline. Wound culture showed Staph and Strep and he was treated with Keflex based on sensitivities and use topical Gentamicin for 3 weeks. Wound culture done 09/18/23 was positive for staph epidermidis. He has been on cephalexin and doxycycline. Wound culture was positive for Enterococcus and Linezolid completed. Wound culture was positive and he will continue Flagyl, Cipro and hold cefdinir and decrease doxycycline to once/day. His put him back on Keflex and doxycycline when his ulcer worsened over . Wound culture on 04/29/24 was positive for Staph epidermidis and he completed Linezolid and is back to taking chronic doxycyline and on Bactrim. Wound culture taken showed Corynebacterium and we discussed starting him on Augmentin but are hesitant to do this because of a PCN allergy that he reports as a child but he does not reca ll the reaction. XR of foot was negative. MRI negative for osteomyelitis and arterial testing negative for arterial insufficiency. Repeat XR of foot was negative. XR ordered again to r/o osteomyelitis and was negative. Follow-up: Return in 1 week for wound care follow up. Return sooner or report to the emergency room should symptoms worsen, or new symptoms arise. Note: [employer] speech recognition fishing vessel operator software was used to create portions of this document. Sound-alike and misspelled words, as well as other fishing vessel operator errors may be contained in the documentation.
--- NOTE | 2024-11-07 08:41 | WC ---
PHOTO 11/04/24 LEFT LATERAL PLANTAR FOOT
[2024-11-11 09:55] VITALS: BP 132/53; PULSE 79; RESP 18; TEMP 36.8
--- NOTE | 2024-11-11 12:47 | WC ---
PHOTO 11/11/24 LEFT LATERAL PLANTAR
--- NOTE | 2024-11-11 14:10 | PCM.WC.PN ---
History of Present Illness Date of Service: 11/11/24 Chief Complaint: nonhealing wound left plantar foot History of Wound: Jose J is a 68 y/o gentleman that presents to the wound healing center for evaluation and treatment of a wound to his left plantar foot. He is a patient of Dr. Giordano. He has had a wound to this same area in February 2019 and was seen at [facility] and treated there for 9 weeks with Aquacel and was placed in a wedge shoe to offload his foot. He was treated for this same wound for almost a year at this wound center and was healed in May 2020 and returned in July and was treated until September. He had undergone vascular testing at [facility] in 2018 and this has been repeated 09/2023 without significant arterial disease. 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 He and his did not want to do surgery. He has managed to do well over the last 2 years until the end of October when the area became painful again and began draining. He saw Dr. Giordano and was treated with doxycycline which helped and they had been applying Aquacel that they had from previous treatment but it has not improved. He was treated with a second course of doxycycline and then referred here for treatment. He is still working and walking on his foot in a steel toe boot 4 days a week for 10 hours. He had an offloading pad in his work boot previously but no longer has this in place. He denies claudication with walking. He has moderate to heavy drainage from the ulcer. He has not had any wound cultures taken. 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 He denies fever, chill, nausea, vomiting, redness or odor. Subjective Subjective Jose J returns today for follow up of an ulcer on the bottom of his left foot. His ulcer and drainage are minimally changed since last visit. He denies fever, chills or odor. He had MRI on 10/02/23 which did not show any osteomyelitis of his foot. Arterial testing was also done and did not show any evidence of arterial insufficiency. HgbA1C was 6.3% on 07/2024. Objective Data Objective Data Vital Signs: Vital Signs Temp Pulse Resp BP O2 Del Method 98.3 F 79 18 132/53 H Room Air 11/11/24 09:55 11/11/24 09:55 11/11/24 09:55 11/11/24 09:55 11/04/24 09:50 Oxygen Delivery Method Room Air Physical Exam Const alert, oriented x3 and no apparent distress General Appearance: cooperative and comfortable HEENT normocephalic and head/scalp atraumatic Resp normal respiratory effort Effort and Inspection: able to speak in complete sentences Auscultation: rales, rhonchi and diminished lung sounds Cardio regular rate and regular rhythm Skin Wounds: wounds noted Wound Narrative: as in clinical panel, mild callus formation surrounding ulcer, no cellulitis or odor Psych mental status grossly normal, thought process normal, cooperative and affect normal Debridement Note Debridement Note Wound debrided: left lateral plantar ulcer Laterality: Left Wound Grade/Stage: Luther grade 1 Type of Debridement: Excisional debridement Anesthesia Used: 5% Lidocaine Gel Depth: Down to and including healthy tissue and in the subcutaneous layer Percentage of wound debrided: 100 Instrument Used: 3mm curette Tissue Removed: Yellow slough, devitalized tissue Severity: Fat Layer Exposed Amount of bleeding with debridement: Mild Bleeding Controlled with: Pressure Patient tolerated procedure: Patient tolerated procedure well Post-Debridement Measurements and Additional Note: Post-Debridement Measurements/Treatment - Nurse 1 - General Ulcer Assessment Start: 10/28/24 09:48 Freq: Status: Active Protocol: QUOC.AMADA Activity Type Activity Date Activity User E-sign Co-sign Detail Recorded Client Recorded Date Recorded By Document 10/28/24 09:48 [id number] 10/28/24 09:51 KW Document 11/04/24 09:50 KW [id number] 11/04/24 10:01 KW Document 11/11/24 09:55 RB [id number] 11/11/24 09:59 RB 10/28/24 11/04/24 11/11/24 09:48 09:50 09:55 - Today's Visit Information Type of service Follow-up Visit Follow-up Visit Follow-up Visit (Physician/PRESIDENT PRACTICING UROLOGIST (Physician/PRESIDENT PRACTICING UROLOGIST (Physician/PRESIDENT PRACTICING UROLOGIST ) ) ) Arrival Mode Ambulatory Ambulatory Ambulatory Transfer Assistance None Accompanied by Patient Identification Verified (Name & Yes Yes Yes ) Patient Requires Transmission-Based No Precautions Vital Signs Temperature (97.8 F-99.1 F) 97.5 F L 97.9 F 98.3 F Temperature Source Temporal Temporal Temporal Pulse Rate (60-100) 79 79 79 Pulse Location Monitor Monitor Monitor Respiratory Rate (12-18) 16 16 18 Respiratory rate source Observation Observation Observation Oxygen Delivery Method Room Air Room Air Blood Pressure (90/60-120/80) 121/74 H 112/74 132/53 H Blood Pressure Mean (mm Hg) 89 86 79 Source Monitor Monitor Monitor Position Semi-Fowlers Semi-Fowlers Semi-Fowlers Blood Pressure Location Left Arm Right Arm Left Arm History Since Last Visit- (Skip if this is Patient's initial visit) Have you changed medications since your No No No last visit? Any new allergies or adverse reactions No No No Had a fall/change in ADL's that may No No No increase risk of falls Signs or symptoms of abuse and/or No No No neglect since last visit Have you been in the hospital since your No No No last visit? Has dressing in place as prescribed Yes Yes Yes Has compression in place as prescribed N/A N/A N/A Has offloadiing in place as prescribed N/A N/A N/A Experienced any changes in pain level or No No No management Left Footwear Regular Shoe Regular Shoe Right Footwear Regular Shoe Regular Shoe Pain Scale: 0-10 Numeric Is Patient Pain Free? Yes Yes Yes WC - Nurse 1 - General Ulcer Measurement Start: 10/28/24 09:48 Freq: Status: Active Protocol: Activity Type Activity Date Activity User E-sign Co-sign Detail Recorded Client Recorded Date Recorded By Document 10/28/24 09:48 KW [id number] 10/28/24 09:51 KW Document 11/04/24 09:50 KW [id number] 11/04/24 10:01 KW Document 11/11/24 09:55 RB [id number] 11/11/24 09:59 RB 10/28/24 11/04/24 11/11/24 09:48 09:50 09:55 Wound Center Nurse 1 #3 L Lateral Plantar Foot -Combined with other wound No -Current Size (cm) - Length 0.6 1 0.5 -Current Size (cm) - Width 0.5 0.8 0.5 -Current Size (cm) - Depth 0.1 0.1 0.1 -Total Square Cm 0.30 0.8 0.25 -Date of Last Picture (Recall this 10/28/24 11/04/24 field) -Photo Taken Yes -Tunneling No -Undermining/Tunneling No -Circular Undermining No -Exudate Amt Small Medium Medium -Exudate Type Serosanguineous Serosanguineous Serosanguineous -Wound Margin Distinct, Distinct, Thickened Outline Outline Attached Attached -Granulation Amt Large (67-100%) Large (67-100%) Medium (34-66%) -Granulation Quality [place],Red Bru[place] -Slough/Fibrin Yes -Necrosis Amt Small (1-33%) -Necrotic Tissue Type Adherent Slough -Structure Exposed N/A -Texture (Flory-wound Skin Appearance) Callus Assessed,Callus Assessed,Callus -Moisture (Flory-wound Skin Appearance) Assessed Assessed Assessed -Color (Flory-wound Skin Appearance) Assessed Assessed Assessed -Temperature (Flory-wound Skin No Abnormality No Abnormality No Abnormality Appearance) (Pt Warm) (Pt Warm) (Pt Warm) -Tenderness on Palpation (Flory-wound No No No Skin Appearance) -Ulcer Cleansing Soap and Water Soap and Water Wound Cleanser -Foul Odor after Cleansing No No No -Anesthetic Used 5% Lidocaine 5% Lidocaine 5% Lidocaine Gel Gel Gel WC - Nurse 2 - General Ulcer CM Notes Start: 10/28/24 09:48 Freq: Status: Active Protocol: Activity Type Activity Date Activity User E-sign Co-sign Detail Recorded Client Recorded Date Recorded By Document 10/28/24 11:15 [id number] 10/28/24 11:25 Document 11/04/24 10:53 [id number] 11/04/24 11:17 GM Document 11/11/24 10:44 GM [id number] 11/11/24 10:46 GM Edit Result 11/11/24 10:44 GM (1) [id number] 11/11/24 10:47 GM (1) #3 L Lateral Plantar Foot - Post Debridement (cm) - Length => 1.5 - Post Debridement (cm) - Width => 0.8 - Post Debridement (cm) - Depth => 0.1 - Total Square (Post) (cm) => 1.20 - Area of Debridement (cm) - Length => 1.5 - Area of Debridement (cm) - Width => 0.8 - Total Square (Area) (cm) => 1.20 10/28/24 11/04/24 11/11/24 11:15 10:53 10:44 Wound Center Nurse 2 #3 L Lateral Plantar Foot -Time 11:17 10:53 10:45 -Correct Patient Yes Yes Yes -Correct Side, Site, Position Yes Yes Yes -Correct Procedure Yes Yes Yes -Procedure Performed Yes Yes Yes -Type of Procedure Debridement Debridement Debridement -Clinical Debridement Subcutaneous Subcutaneous Subcutaneous -Tissue Removed Subcutaneous Subcutaneous Subcutaneous -Post Debridement (cm) - Length 1.5 1.6 1.5 -Post Debridement (cm) - Width 0.7 0.8 0.8 -Post Debridement (cm) - Depth 0.1 0.1 0.1 -Total Square (Post) (cm) 1.05 1.28 1.20 -Area of Debridement (cm) - Length 1.5 1.6 1.5 -Area of Debridement (cm) - Width 0.7 0.8 0.8 -Total Square (Area) (cm) 1.05 1.28 1.20 -Tunneling No No No -Undermining/Tunneling No No No -Circular Undermining No No No -Wound/Ulcer Outcome Not Healed Not Healed Not Healed -Ulcer Cleansing Rinsed/ Rinsed/ Rinsed/ Irrigated with Irrigated with Irrigated with Saline Saline Saline -Foul Odor after Cleansing No No No -Bioengineered Tissue No No No -Bleeding Controlled with Pressure Pressure Pressure -Treatment Response Procedure Procedure Procedure Tolerated Well Tolerated Well Tolerated Well -Offloading No No No -Debridement - Subq, 1st 20sq cm Yes Yes Yes Pain Scale: 0-10 Numeric Is Patient Pain Free? Yes Yes Yes - Nurse 3 - General Ulcer D/C NN Start: 10/28/24 09:48 Freq: Status: Active Protocol: Activity Type Activity Date Activity User E-sign Co-sign Detail Recorded Client Recorded Date Recorded By Document 10/28/24 11:47 KW [id number] 10/28/24 11:48 KW Document 11/04/24 11:28 KW [id number] 11/04/24 11:28 KW Document 11/11/24 11:15 KW [id number] 11/11/24 11:16 KW 10/28/24 11/04/24 11/11/24 11:47 11:28 11:15 Wound Care Center Nurse 3 #3 L Lateral Plantar Foot -Ulcer Cleansing Rinsed/ Irrigated with Saline -Primary Dressing Applied Aquacel Extra Aquacel Extra Aquacel Extra -Primary Dressing Covered/Secured with Dry Gauze & Dry Gauze, Dry Gauze & Roll Gauze, Secured with Roll Gauze, Secured with Tape Secured with Tape Tape -Aquacel Extra 1 1 1 Pain Scale: 0-10 Numeric Is Patient Pain Free? Yes Yes Yes WC - Visit Discharge Discharge Condition Stable Stable Stable Ambulatory Status Ambulatory Ambulatory Ambulatory Transportation Private Auto Private Auto Private Auto Medication Reconcilliation completed & No No No provided to patient/care provider Clinical Summary of Care Provided Yes Yes Yes Assessment/Plan Assessment/Plan (1) Delayed wound healing: CODE(S): T14.8XXD - Other injury of unspecified body region, subsequent encounter (2) Chronic ulcer of left foot with fat layer exposed: CODE(S): L97.522 - Non-pressure chronic ulcer of other part of left foot with fat layer exposed (3) HTN (hypertension): CODE(S): I10 - Essential (primary) hypertension QUALIFIERS: Hypertension type: primary hypertension Qualified Code(s): I10 - Essential (primary) hypertension (4) Diabetic ulcer of foot associated with diabetes mellitus due to underlying condition, with fat layer exposed: CODE(S): E08.621 - Diabetes mellitus due to underlying condition with foot ulcer; L97.502 - Non-pressure chronic ulcer of other part of unspecified foot with fat layer exposed QUALIFIERS: Diabetic foot ulcer location: midfoot Laterality: left Qualified Code(s): E08.621 - Diabetes mellitus due to underlying condition with foot ulcer; L97.422 - Non-pressure chronic ulcer of left heel and midfoot with fat layer exposed (5) Type 2 diabetes mellitus without complications: CODE(S): E11.9 - Type 2 diabetes mellitus without complications QUALIFIERS: Diabetes mellitus usp insulin use: without marine oil terminal superintendent 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 It has been stable since his last visit but callus formation is still present. I suspect noncompliance of offloading to be a major factor in his delayed healing. At home wound-care instructions: Wash ulcer daily with antibacterial soap and water. Will have him continue to use Aquacel Extra to ulcer and cover with gauze and roll gauze to secure daily. Keep dressing clean and dry. His work boot was modified on 07/03/23 and again 12/25/23 to try to offload pressure. He retired September 22, 2024. Discussed possibly using TCC for offloading in near future but he is unable to do so due to work. We also discussed that there may be a single vessel narrowing that could be preventing healing and talked about possible referral to Vascular surgery to do CTA runoff. He declines at this time. Also discussed surgical procedure proposed by podiatry to shave exostosis of bone that is likely causing ulcer and he declines at this time. Off-loading: The patient was instructed to avoid pressure and friction on the affected areas. Reposition every 2 hours at minimum. Avoid prolonged standing and/or dangling of legs. When seated, feet should be elevated at chest level. Frequent ambulation is encouraged. Diet: Patient encouraged to increase protein intake while taking caution to avoid high carbohydrate and/or sugar intake. Labs/cultures/imaging: Wound culture positive 03/27/23 and is currently on Doxycycline. Wound culture showed Staph and Strep and he was treated with Keflex based on sensitivities and use topical Gentamicin for 3 weeks. Wound culture done 09/18/23 was positive for staph epidermidis. He has been on cephalexin and doxycycline. Wound culture was positive for Enterococcus and Linezolid completed. Wound culture was positive and he will continue Flagyl, Cipro and hold cefdinir and decrease doxycycline to once/day. His put him back on Keflex and doxycycline when his ulcer worsened over . Wound culture on 04/29/24 was positive for Staph epidermidis and he completed Linezolid and is back to taking chronic doxycyline and on Bactrim. Wound culture taken showed Corynebacterium and we discussed starting him on Augmentin but are hesitant to do this because of a PCN allergy that he reports as a child but he does not recall the reaction. XR of foot was negative. MRI negative for osteomyelitis and arterial testing negative for arterial insufficiency. Repeat XR of foot was negative. XR ordered again to r/o osteomyelitis and was negative. Follow-up: Return in 1 week for wound care follow up. Return sooner or report to the emergency room should symptoms worsen, or new symptoms arise. Note: [employer] speech recognition cooperage shop supervisor software was used to create portions of this document. Sound-alike and misspelled words, as well as other cooperage shop supervisor errors may be contained in the documentation.
[2024-11-18 10:13] VITALS: BP 121/64; PULSE 72; RESP 16; TEMP 36.3
--- NOTE | 2024-11-18 14:25 | PN.PCM_ITS ---
History of Present Illness Date of Service: 11/18/24 Chief Complaint: nonhealing wound left plantar foot History of Wound: Jose J is a 68 y/o gentleman that presents to the wound healing center for evaluation and treatment of a wound to his left plantar foot. He is a patient of Dr. Giordano. He has had a wound to this same area in February 2019 and was seen at [facility] and treated there for 9 weeks with Aquacel and was placed in a wedge shoe to offload his foot. He was treated for this same wound for almost a year at this wound center and was healed in May 2020 and returned in July and was treated until September. He had undergone vascular testing at [facility] in 2018 and this has been repeated 09/2023 without significant arterial disease. 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 He and his did not want to do surgery. He has managed to do well over the last 2 years until the end of October when the area became painful again and began draining. He saw Dr. Giordano and was treated with doxycycline which helped and they had been applying Aquacel that they had from previous treatment but it has not improved. He was treated with a second course of doxycycline and then referred here for treatment. He is still working and walking on his foot in a steel toe boot 4 days a week for 10 hours. He had an offloading pad in his work boot previously but no longer has this in place. He denies claudication with walking. He has moderate to heavy drainage from the ulcer. He has not had any wound cultures taken. 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 He denies fever, chill, nausea, vomiting, redness or odor. Subjective Subjective Jose J returns today for follow up of an ulcer on the bottom of his left foot. His ulcer and drainage are minimally changed since last visit. He denies fever, chills or odor. He had MRI on 10/02/23 which did not show any osteomyelitis of his foot. Arterial testing was also done and did not show any evidence of arterial insufficiency. HgbA1C was 6.3% on 07/2024. Objective Data Objective Data Vital Signs: Vital Signs Temp Pulse Resp BP O2 Del Method 97.4 F L 72 16 121/64 H Room Air 11/18/24 10:13 11/18/24 10:13 11/18/24 10:13 11/18/24 10:13 11/18/24 10:13 Oxygen Delivery Method Room Air Physical Exam Const alert, oriented x3 and no apparent distress General Appearance: cooperative and comfortable HEENT normocephalic and head/scalp atraumatic Resp normal respiratory effort Effort and Inspection: able to speak in complete sentences Auscultation: rales, rhonchi and diminished lung sounds Cardio regular rate and regular rhythm Skin Wounds: wounds noted Wound Narrative: as in clinical panel, mild callus formation surrounding ulcer, no cellulitis or odor Psych mental status grossly normal, thought process normal, cooperative and affect normal Debridement Note Debridement Note Wound debrided: left lateral plantar ulcer Laterality: Left Wound Grade/Stage: Luther grade 1 Type of Debridement: Excisional debridement Anesthesia Used: 5% Lidocaine Gel Depth: Down to and including healthy tissue and in the subcutaneous layer Percentage of wound debrided: 100 Instrument Used: 3mm curette Tissue Removed: Yellow slough, devitalized tissue Severity: Fat Layer Exposed Amount of bleeding with debridement: Mild Bleeding Controlled with: Pressure Patient tolerated procedure: Patient tolerated procedure well Post-Debridement Measurements and Additional Note: Post-Debridement Measurements/Treatment - Nurse 1 - General Ulcer Assessment Start: 10/28/24 09:48 Freq: Status: Active Protocol: QUOC.AMADA Activity Type Activity Date Activity User E-sign Co-sign Detail Recorded Client Recorded Date Recorded By Document 10/28/24 09:48 KW [id number] 10/28/24 09:51 KW Document 11/04/24 09:50 KW [id number] 11/04/24 10:01 KW Document 11/11/24 09:55 RB [id number] 11/11/24 09:59 RB Document 11/18/24 10:13 KW [id number] 11/18/24 10:18 KW 10/28/24 11/04/24 11/11/24 09:48 09:50 09:55 - Today's Visit Information Type of service Follow-up Visit Follow-up Visit Follow-up Visit (Physician/BRACELET MAKER NOVELTY (Physician/BRACELET MAKER NOVELTY (Physician/BRACELET MAKER NOVELTY ) ) ) Arrival Mode Ambulatory Ambulatory Ambulatory Transfer Assistance None Accompanied by Patient Identification Verified (Name & Yes Yes Yes ) Patient Requires Transmission-Based No Precautions Vital Signs Temperature (97.8 F-99.1 F) 97.5 F L 97.9 F 98.3 F Temperature Source Temporal Temporal Temporal Pulse Rate (60-100) 79 79 79 Pulse Location Monitor Monitor Monitor Respiratory Rate (12-18) 16 16 18 Respiratory rate source Observation Observation Observation Oxygen Delivery Method Room Air Room Air Blood Pressure (90/60-120/80) 121/74 H 112/74 132/53 H Blood Pressure Mean (mm Hg) 89 86 79 Source Monitor Monitor Monitor Position Semi-Fowlers Semi-Fowlers Semi-Fowlers Blood Pressure Location Left Arm Right Arm Left Arm History Since Last Visit- (Skip if this is Patient's initial visit) Have you changed medications since your No No No last visit? Any new allergies or adverse reactions No No No Had a fall/change in ADL's that may No No No increase risk of falls Signs or symptoms of abuse and/or No No No neglect since last visit Have you been in the hospital since your No No No last visit? Has dressing in place as prescribed Yes Yes Yes Has compression in place as prescribed N/A N/A N/A Has offloadiing in place as prescribed N/A N/A N/A Experienced any changes in pain level or No No No management Left Footwear Regular Shoe Regular Shoe Right Footwear Regular Shoe Regular Shoe Pain Scale: 0-10 Numeric Is Patient Pain Free? Yes Yes Yes 11/18/24 10:13 - Today's Visit Information Type of service Follow-up Visit (Physician/[facility]ER [facility]OVELTY ) Arrival Mode Ambulatory Transfer Assistance Accompanied by Patient Identification Verified (Name & Yes ) Patient Requires Transmission-Based Precautions Vital Signs Temperature (97.8 F-99.1 F) 97.4 F L Temperature Source Temporal Pulse Rate (60-100) 72 Pulse Location Monitor Respiratory Rate (12-18) 16 Respiratory rate source Observation Oxygen Delivery Method Room Air Blood Pressure (90/60-120/80) 121/64 H Blood Pressure Mean (mm Hg) 83 Source Monitor Position Semi-Fowlers Blood Pressure Location Left Arm History Since Last Visit- (Skip if this is Patient's initial visit) Have you changed medications since your No last visit? Any new allergies or adverse reactions No Had a fall/change in ADL's that may No increase risk of falls Signs or symptoms of abuse and/or No neglect since last visit Have you been in the hospital since your No last visit? Has dressing in place as prescribed Yes Has compression in place as prescribed Yes Has offloadiing in place as prescribed N/A Experienced any changes in pain level or No management Left Footwear Regular Shoe Right Footwear Regular Shoe Pain Scale: 0-10 Numeric Is Patient Pain Free? Yes WC - Nurse 1 - General Ulcer Measurement Start: 10/28/24 09:48 Freq: Status: Active Protocol: Activity Type Activity Date Activity User E-sign Co-sign Detail Recorded Client Recorded Date Recorded By Document 10/28/24 09:48 KW [id number] 10/28/24 09:51 KW Document 11/04/24 09:50 KW [id number] 11/04/24 10:01 KW Document 11/11/24 09:55 RB [id number] 11/11/24 09:59 RB Document 11/18/24 10:13 KW [id number] 11/18/24 10:18 KW 10/28/24 11/04/24 11/11/24 09:48 09:50 09:55 Wound Center Nurse 1 #3 L Lateral Plantar Foot -Combined with other wound No -Current Size (cm) - Length 0.6 1 0.5 -Current Size (cm) - Width 0.5 0.8 0.5 -Current Size (cm) - Depth 0.1 0.1 0.1 -Total Square Cm 0.30 0.8 0.25 -Date of Last Picture (Recall this 10/28/24 11/04/24 field) -Photo Taken Yes -Tunneling No -Undermining/Tunneling No -Circular Undermining No -Exudate Amt Small Medium Medium -Exudate Type Serosanguineous Serosanguineous Serosanguineous -Wound Margin Distinct, Distinct, Thickened Outline Outline Attached Attached -Granulation Amt Large (67-100%) Large (67-100%) Medium (34-66%) -Granulation Quality [place],Red [place] -Slough/Fibrin Yes -Necrosis Amt Small (1-33%) -Necrotic Tissue Type Adherent Slough -Structure Exposed N/A -Texture (Flory-wound Skin Appearance) Callus Assessed,Callus Assessed,Callus -Moisture (Flory-wound Skin Appearance) Assessed Assessed Assessed -Color (Flory-wound Skin Appearance) Assessed Assessed Assessed -Temperature (Flory-wound Skin No Abnormality No Abnormality No Abnormality Appearance) (Pt Warm) (Pt Warm) (Pt Warm) -Tenderness on Palpation (Flory-wound No No No Skin Appearance) -Ulcer Cleansing Soap and Water Soap and Water Wound Cleanser -Foul Odor after Cleansing No No No -Anesthetic Used 5% Lidocaine 5% Lidocaine 5% Lidocaine Gel Gel Gel 11/18/24 10:13 Wound Center Nurse 1 #3 L Lateral Plantar Foot -Combined with other wound -Current Size (cm) - Length 1 -Current Size (cm) - Width 0.6 -Current Size (cm) - Depth 0.1 -Total Square Cm 0.6 -Date of Last Picture (Recall this field) -Photo Taken -Tunneling -Undermining/Tunneling -Circular Undermining -Exudate Amt Small -Exudate Type Serosanguineous -Wound Margin Distinct, Outline Attached -Granulation Amt Large (67-100%) -Granulation Quality [place] -Slough/Fibrin -Necrosis Amt -Necrotic Tissue Type -Structure Exposed -Texture (Flory-wound Skin Appearance) Assessed,Callus -Moisture (Flory-wound Skin Appearance) Assessed -Color (Flory-wound Skin Appearance) Assessed -Temperature (Flory-wound Skin No Abnormality Appearance) (Pt Warm) -Tenderness on Palpation (Flory-wound No Skin Appearance) -Ulcer Cleansing Rinsed/ Irrigated with Saline -Foul Odor after Cleansing No -Anesthetic Used 5% Lidocaine Gel WC - Nurse 2 - General Ulcer CM Notes Start: 10/28/24 09:48 Freq: Status: Active Protocol: Activity Type Activity Date Activity User E-sign Co-sign Detail Recorded Client Recorded Date Recorded By Document 10/28/24 11:15 GM [id number] 10/28/24 11:25 GM Document 11/04/24 10:53 GM [id number] 11/04/24 11:17 GM Document 11/11/24 10:44 GM [id number] 11/11/24 10:46 GM Edit Result 11/11/24 10:44 GM (1) [id number] 11/11/24 10:47 GM Document 11/18/24 11:23 GM [id number] 11/18/24 11:29 GM (1) #3 L Lateral Plantar Foot - Post Debridement (cm) - Length => 1.5 - Post Debridement (cm) - Width => 0.8 - Post Debridement (cm) - Depth => 0.1 - Total Square (Post) (cm) => 1.20 - Area of Debridement (cm) - Length => 1.5 - Area of Debridement (cm) - Width => 0.8 - Total Square (Area) (cm) => 1.20 10/28/24 11/04/24 11/11/24 11:15 10:53 10:44 Wound Center Nurse 2 #3 L Lateral Plantar Foot -Time 11:17 10:53 10:45 -Correct Patient Yes Yes Yes -Correct Side, Site, Position Yes Yes Yes -Correct Procedure Yes Yes Yes -Procedure Performed Yes Yes Yes -Type of Procedure Debridement Debridement Debridement -Clinical Debridement Subcutaneous Subcutaneous Subcutaneous -Tissue Removed Subcutaneous Subcutaneous Subcutaneous -Post Debridement (cm) - Length 1.5 1.6 1.5 -Post Debridement (cm) - Width 0.7 0.8 0.8 -Post Debridement (cm) - Depth 0.1 0.1 0.1 -Total Square (Post) (cm) 1.05 1.28 1.20 -Area of Debridement (cm) - Length 1.5 1.6 1.5 -Area of Debridement (cm) - Width 0.7 0.8 0.8 -Total Square (Area) (cm) 1.05 1.28 1.20 -Tunneling No No No -Undermining/Tunneling No No No -Circular Undermining No No No -Wound/Ulcer Outcome Not Healed Not Healed Not Healed -Ulcer Cleansing Rinsed/ Rinsed/ Rinsed/ Irrigated with Irrigated with Irrigated with Saline Saline Saline -Foul Odor after Cleansing No No No -Bioengineered Tissue No No No -Bleeding Controlled with Pressure Pressure Pressure -Treatment Response Procedure Procedure Procedure Tolerated Well Tolerated Well Tolerated Well -Offloading No No No -Debridement - Subq, 1st 20sq cm Yes Yes Yes Pain Scale: 0-10 Numeric Is Patient Pain Free? Yes Yes Yes 11/18/24 11:23 Wound Center Nurse 2 #3 L Lateral Plantar Foot -Time 11:23 -Correct Patient Yes -Correct Side, Site, Position Yes -Correct Procedure Yes -Procedure Performed Yes -Type of Procedure Debridement -Clinical Debridement Subcutaneous -Tissue Removed Subcutaneous -Post Debridement (cm) - Length 1.5 -Post Debridement (cm) - Width 0.7 -Post Debridement (cm) - Depth 0.1 -Total Square (Post) (cm) 1.05 -Area of Debridement (cm) - Length 1.5 -Area of Debridement (cm) - Width 0.7 -Total Square (Area) (cm) 1.05 -Tunneling No -Undermining/Tunneling No -Circular Undermining No -Wound/Ulcer Outcome Not Healed -Ulcer Cleansing Rinsed/ Irrigated with Saline -Foul Odor after Cleansing No -Bioengineered Tissue No -Bleeding Controlled with Pressure -Treatment Response Procedure Tolerated Well -Offloading No -Debridement - Subq, 1st 20sq cm Yes Pain Scale: 0-10 Numeric Is Patient Pain Free? Yes - Nurse 3 - General Ulcer D/C NN Start: 10/28/24 09:48 Freq: Status: Active Protocol: Activity Type Activity Date Activity User E-sign Co-sign Detail Recorded Client Recorded Date Recorded By Document 10/28/24 11:47 [id number] 10/28/24 11:48 Document 11/04/24 11:28 [id number] 11/04/24 11:28 KW Document 11/11/24 11:15 KW [id number] 11/11/24 11:16 Document 11/18/24 11:46 [id number] 11/18/24 11:47 KW 10/28/24 11/04/24 11/11/24 11:47 11:28 11:15 Wound Care Center Nurse 3 #3 L Lateral Plantar Foot -Ulcer Cleansing Rinsed/ Irrigated with Saline -Primary Dressing Applied Aquacel Extra Aquacel Extra Aquacel Extra -Primary Dressing Covered/Secured with Dry Gauze & Dry Gauze, Dry Gauze & Roll Gauze, Secured with Roll Gauze, Secured with Tape Secured with Tape Tape -Aquacel Extra 1 1 1 Pain Scale: 0-10 Numeric Is Patient Pain Free? Yes Yes Yes - Visit Discharge Discharge Condition Stable Stable Stable Ambulatory Status Ambulatory Ambulatory Ambulatory Transportation Private Auto Private Auto Private Auto Medication Reconcilliation completed & No No No provided to patient/care provider Clinical Summary of Care Provided Yes Yes Yes 11/18/24 11:46 Wound Care Center Nurse 3 #3 L Lateral Plantar Foot -Ulcer Cleansing -Primary Dressing Applied Aquacel Extra -Primary Dressing Covered/Secured with Dry Gauze & Roll Gauze, Secured with Tape -Aquacel Extra 1 Pain Scale: 0-10 Numeric Is Patient Pain Free? Yes WC - Visit Discharge Discharge Condition Stable Ambulatory Status Ambulatory Transportation Private Auto Medication Reconcilliation completed & No provided to patient/care provider Clinical Summary of Care Provided Yes Assessment/Plan Assessment/Plan (1) Delayed wound healing: CODE(S): T14.8XXD - Other injury of unspecified body region, subsequent encounter (2) Chronic ulcer of left foot with fat layer exposed: CODE(S): L97.522 - Non-pressure chronic ulcer of other part of left foot with fat layer exposed (3) HTN (hypertension): CODE(S): I10 - Essential (primary) hypertension QUALIFIERS: Hypertension type: primary hypertension Qualified Code(s): I10 - Essential (primary) hypertension (4) Diabetic ulcer of foot associated with diabetes mellitus due to underlying condition, with fat layer exposed: CODE(S): E08.621 - Diabetes mellitus due to underlying condition with foot ulcer; L97.502 - Non-pressure chronic ulcer of other part of unspecified foot with fat layer exposed QUALIFIERS: Diabetic foot ulcer location: midfoot Laterality: left Qualified Code(s): E08.621 - Diabetes mellitus due to underlying condition with foot ulcer; L97.422 - Non-pressure chronic ulcer of left heel and midfoot with fat layer exposed (5) Type 2 diabetes mellitus without complications: CODE(S): E11.9 - Type 2 diabetes mellitus without complications QUALIFIERS: Diabetes mellitus ad terminal makeup operator insulin use: without ad terminal makeup operator 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 It has been stable since his last visit but callus formation is still present. I suspect noncompliance of offloading to be a major factor in his delayed healing. At home wound-care instructions: Wash ulcer daily with antibacterial soap and water. Will have him continue to use Aquacel Extra to ulcer and cover with gauze and roll gauze to secure daily. Keep dressing clean and dry. His work boot was modified on 07/03/23 and again 12/25/23 to try to offload pressure. He retired September 22, 2024. Discussed possibly using TCC for offloading in near future but he is unable to do so due to work. We also discussed that there may be a single vessel narrowing that could be preventing healing and talked about possible referral to Vascular surgery to do CTA runoff. He declines at this time. Also discussed surgical procedure proposed by podiatry to shave exostosis of bone that is likely causing ulcer and he declines at this time. Off-loading: The patient was instructed to avoid pressure and friction on the affected areas. Reposition every 2 hours at minimum. Avoid prolonged standing and/or dangling of legs. When seated, feet should be elevated at chest level. Frequent ambulation is encouraged. Diet: Patient encouraged to increase protein intake while taking caution to avoid high carbohydrate and/or sugar intake. Labs/cultures/imaging: Wound culture positive 03/27/23 and is currently on Doxycycline. Wound culture showed Staph and Strep and he was treated with Keflex based on sensitivities and use topical Gentamicin for 3 weeks. Wound culture done 09/18/23 was positive for staph epidermidis. He has been on cephalexin and doxycycline. Wound culture was positive for Enterococcus and Linezolid completed. Wound culture was positive and he will continue Flagyl, Cipro and hold cefdinir and decrease doxycycline to once/day. His put him back on Keflex and doxycycline when his ulcer worsened over . Wound culture on 04/29/24 was positive for Staph epidermidis and he completed Linezolid and is back to taking chronic doxycyline and on Bactrim. Wound culture taken showed Corynebacterium and we discussed starting him on Augmentin but are hesitant to do this because of a PCN allergy that he reports as a child but he does not recall the reaction. XR of foot was negative. MRI negative for osteomyelitis and arterial testing negative for arterial insufficiency. Repeat XR of foot was negative. XR ordered again to r/o osteomyelitis and was negative. Follow-up: Return in 3 weeks for wound care follow up. Return sooner or report to the emergency room should symptoms worsen, or new symptoms arise. Note: [employer] speech recognition telemarketer supervisor software was used to create portions of this document. Sound-alike and misspelled words, as well as other telemarketer supervisor errors may be contained in the documentation.
== END 2024-11-21 23:59 | disposition home or self-care (01) ==
LOC: WC 10:00
PROVIDERS: PCP Family Medicine; Referring Provider Family Medicine; Visit Provider Family Medicine
DX: E11.621 Type 2 diabetes mellitus with foot ulcer (principal); L97.422 Non-pressure chronic ulcer of left heel and midfoot with fat layer exposed; C95.10 Chronic leukemia of unspecified cell type not having achieved remission; I10 Essential (primary) hypertension; Z88.0 Allergy status to penicillin; Z79.899 Other long term (current) drug therapy
CPT/HCPCS: 11042

== ENCOUNTER 2024-12-16 10:15 | Outpatient (RCR) | payer BC, MEDICARE, OTHER, SELFPAY ==
[2024-12-09 10:11] VITALS: BP 130/77; PULSE 72; RESP 18; TEMP 36.1
--- NOTE | 2024-12-09 14:35 | PN.PCM_ITS ---
History of Present Illness Date of Service: 12/09/24 Chief Complaint: nonhealing wound left plantar foot History of Wound: Jose J is a 68 y/o gentleman that presents to the wound healing center for evaluation and treatment of a wound to his left plantar foot. He is a patient of Dr. Giordano. He has had a wound to this same area in February 2019 and was seen at [facility] and treated there for 9 weeks with Aquacel and was placed in a wedge shoe to offload his foot. He was treated for this same wound for almost a year at this wound center and was healed in May 2020 and returned in July and was treated until September. He had undergone vascular testing at [facility] in 2018 and this has been repeated 09/2023 without significant arterial disease. 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 He and his did not want to do surgery. He has managed to do well over the last 2 years until the end of October when the area became painful again and began draining. He saw Dr. Giordano and was treated with doxycycline which helped and they had been applying Aquacel that they had from previous treatment but it has not improved. He was treated with a second course of doxycycline and then referred here for treatment. He is still working and walking on his foot in a steel toe boot 4 days a week for 10 hours. He had an offloading pad in his work boot previously but no longer has this in place. He denies claudication with walking. He has moderate to heavy drainage from the ulcer. He has not had any wound cultures taken. 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 He denies fever, chill, nausea, vomiting, redness or odor. Subjective Subjective Jose J returns today for follow up of an ulcer on the bottom of his left foot. His ulcer and drainage are minimally changed since last visit. He denies fever, chills or odor. He had MRI on 10/02/23 which did not show any osteomyelitis of his foot. Arterial testing was also done and did not show any evidence of arterial insufficiency. HgbA1C was 6.3% on 07/2024. Objective Data Objective Data Vital Signs: Vital Signs Temp Pulse Resp BP O2 Del Method 96.9 F L 72 18 130/77 H Room Air 12/09/24 10:11 12/09/24 10:11 12/09/24 10:11 12/09/24 10:11 12/09/24 10:11 Oxygen Delivery Method Room Air Physical Exam Const alert, oriented x3 and no apparent distress General Appearance: cooperative and comfortable HEENT normocephalic and head/scalp atraumatic Resp normal respiratory effort Effort and Inspection: able to speak in complete sentences Auscultation: rales, rhonchi and diminished lung sounds Cardio regular rate and regular rhythm Skin Wounds: wounds noted Wound Narrative: as in clinical panel, mild callus formation surrounding ulcer, no cellulitis or odor Psych mental status grossly normal, thought process normal, cooperative and affect normal Debridement Note Debridement Note Wound debrided: left lateral plantar ulcer Laterality: Left Wound Grade/Stage: Luther grade 1 Type of Debridement: Excisional debridement Anesthesia Used: 5% Lidocaine Gel Depth: Down to and including healthy tissue and in the subcutaneous layer Percentage of wound debrided: 100 Instrument Used: 3mm curette Tissue Removed: Yellow slough, devitalized tissue Severity: Fat Layer Exposed Amount of bleeding with debridement: Mild Bleeding Controlled with: Pressure Patient tolerated procedure: Patient tolerated procedure well Post-Debridement Measurements and Additional Note: Post-Debridement Measurements/Treatment - Nurse 1 - General Ulcer Assessment Start: 12/09/24 10:11 Freq: Status: Active Protocol: WC.[place] Activity Type Activity Date Activity User E-sign Co-sign Detail Recorded Client Recorded Date Recorded By Document 12/09/24 10:11 [id number] 12/09/24 10:16 NICOLÁS 12/09/24 10:11 - Today's Visit Information Type of service Follow-up Visit (Physician/[facility] ) Arrival Mode Ambulatory Accompanied by Patient Identification Verified (Name & Yes ) Vital Signs Temperature (97.8 F-99.1 F) 96.9 F L Temperature Source Temporal Pulse Rate (60-100) 72 Pulse Location Monitor Respiratory Rate (12-18) 18 Respiratory rate source Observation Oxygen Delivery Method Room Air Blood Pressure (90/60-120/80) 130/77 H Blood Pressure Mean (mm Hg) 94 Source Monitor Position Semi-Fowlers Blood Pressure Location Left Arm History Since Last Visit- (Skip if this is Patient's initial visit) Have you changed medications since your No last visit? Any new allergies or adverse reactions No Had a fall/change in ADL's that may No increase risk of falls Signs or symptoms of abuse and/or No neglect since last visit Have you been in the hospital since your No last visit? Has dressing in place as prescribed Yes Has compression in place as prescribed Yes Has offloadiing in place as prescribed N/A Experienced any changes in pain level or No management Left Footwear Regular Shoe Right Footwear Regular Shoe Pain Scale: 0-10 Numeric Is Patient Pain Free? Yes WC - Nurse 1 - General Ulcer Measurement Start: 12/09/24 10:11 Freq: Status: Active Protocol: Activity Type Activity Date Activity User E-sign Co-sign Detail Recorded Client Recorded Date Recorded By Document 12/09/24 10:11 NICOLÁS [id number] 12/09/24 10:16 NICOLÁS 12/09/24 10:11 Wound Center Nurse 1 #3 L Lateral Plantar Foot -Current Size (cm) - Length 1 -Current Size (cm) - Width 1 -Current Size (cm) - Depth 0.1 -Total Square Cm 1 -Date of Last Picture (Recall this 12/09/24 field) -Exudate Amt Medium -Exudate Type Serosanguineous -Wound Margin Distinct, Outline Attached -Granulation Amt Large (67-100%) -Granulation Quality [place] -Texture (Flory-wound Skin Appearance) Assessed -Moisture (Flory-wound Skin Appearance) Assessed -Color (Flory-wound Skin Appearance) Assessed -Temperature (Flory-wound Skin No Abnormality Appearance) (Pt Warm) -Tenderness on Palpation (Flory-wound No Skin Appearance) -Ulcer Cleansing Rinsed/ Irrigated with Saline -Foul Odor after Cleansing No -Anesthetic Used 5% Lidocaine Gel WC - Nurse 2 - General Ulcer CM Notes Start: 12/09/24 10:11 Freq: Status: Active Protocol: Activity Type Activity Date Activity User E-sign Co-sign Detail Recorded Client Recorded Date Recorded By Document 12/09/24 11:32 EVELYN [id number] 12/09/24 11:46 DS 12/09/24 11:32 Wound Center Nurse 2 -Time 11:32 -Correct Patient Yes -Correct Side, Site, Position Yes -Correct Procedure Yes -Procedure Performed Yes -Type of Procedure Debridement -Clinical Debridement Subcutaneous -Tissue Removed Subcutaneous -Post Debridement (cm) - Length 1.8 -Post Debridement (cm) - Width 1.5 -Post Debridement (cm) - Depth 0.1 -Total Square (Post) (cm) 2.70 -Area of Debridement (cm) - Length 1.8 -Area of Debridement (cm) - Width 1.5 -Total Square (Area) (cm) 2.70 -Tunneling No -Undermining/Tunneling No -Circular Undermining No -Wound/Ulcer Outcome Not Healed -Ulcer Cleansing Rinsed/ Irrigated with Saline -Foul Odor after Cleansing No -Bioengineered Tissue No -Bleeding Controlled with Pressure -Treatment Response Procedure Tolerated Well -Debridement - Subq, 1st 20sq cm Yes Pain Scale: 0-10 Numeric Is Patient Pain Free? 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 Yes - Visit Discharge Discharge Condition Stable Ambulatory Status Ambulatory Transportation Private Auto Accompanied by Assessment/Plan Assessment/Plan (1) Delayed wound healing: CODE(S): T14.8XXD - Other injury of unspecified body region, subsequent encounter (2) Chronic ulcer of left foot with fat layer exposed: CODE(S): L97.522 - Non-pressure chronic ulcer of other part of left foot with fat layer exposed (3) HTN (hypertension): CODE(S): I10 - Essential (primary) hypertension QUALIFIERS: Hypertension type: primary hypertension Qualified Code(s): I10 - Essential (primary) hypertension (4) Diabetic ulcer of foot associated with diabetes mellitus due to underlying condition, with fat layer exposed: CODE(S): E08.621 - Diabetes mellitus due to underlying condition with foot ulcer; L97.502 - Non-pressure chronic ulcer of other part of unspecified foot with fat layer exposed QUALIFIERS: Diabetic foot ulcer location: midfoot Laterality: left Qualified Code(s): E08.621 - Diabetes mellitus due to underlying condition with foot ulcer; L97.422 - Non-pressure chronic ulcer of left heel and midfoot with fat layer exposed (5) Type 2 diabetes mellitus without complications: CODE(S): E11.9 - Type 2 diabetes mellitus without complications QUALIFIERS: Diabetes mellitus [facility] insulin use: without [facility] 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 It has been stable since his last visit but callus formation is still present. I suspect noncompliance of offloading to be a major factor in his delayed healing. At home wound-care instructions: Wash ulcer daily with antibacterial soap and water. Will have him try Promogran and Aquacel Extra to ulcer and cover with gauze and roll gauze to secure daily. Keep dressing clean and dry. His work boot was modified on 07/03/23 and again 12/25/23 to try to offload pressure. He retired September 22, 2024. Discussed possibly using TCC for offloading. We also discussed that there may be a single vessel narrowing that could be preventing healing and talked about po ssible referral to Vascular surgery to do CTA runoff. He declines at this time. Also discussed surgical procedure proposed by podiatry to shave exostosis of bone that is likely causing ulcer and he declines at this time. Off-loading: The patient was instructed to avoid pressure and friction on the affected areas. Reposition every 2 hours at minimum. Avoid prolonged standing and/or dangling of legs. When seated, feet should be elevated at chest level. Frequent ambulation is encouraged. Diet: Patient encouraged to increase protein intake while taking caution to avoid high carbohydrate and/or sugar intake. Labs/cultures/imaging: Wound culture positive 03/27/23 and is currently on Doxycycline. Wound culture showed Staph and Strep and he was treated with Keflex based on sensitivities and use topical Gentamicin for 3 weeks. Wound culture done 09/18/23 was positive for staph epidermidis. He has been on cephalexin and doxycycline. Wound culture was positive for Enterococcus and Linezolid com pleted. Wound culture was positive and he will continue Flagyl, Cipro and hold cefdinir and decrease doxycycline to once/day. His put him back on Keflex and doxycycline when his ulcer worsened over . Wound culture on 04/29/24 was positive for Staph epidermidis and he completed Linezolid and is back to taking chronic doxycyline and on Bactrim. Wound culture taken showed Corynebacterium and we discussed starting him on Augmentin but are hesitant to do this because of a PCN allergy that he reports as a child but he does not recall the reaction. XR of foot was negative. MRI negative for osteomyelitis and arterial testing negative for arterial insufficiency. Repeat XR of foot was negative. XR ordered again to r/o osteomyelitis and was negative. Follow-up: Return in 1 week for wound care follow up. Return sooner or report to the emergency room should symptoms worsen, or new symptoms arise. Note: [email or web address] speech recognition contact lens curve grinder software was used to create portions of this document. Sound-alike and misspelled words, as well as other contact lens curve grinder errors may be contained in the documentation.
--- NOTE | 2024-12-12 09:28 | WC ---
PHOTO 12/09/24 LEFT LATERAL FOOT
[2024-12-16 10:03] VITALS: BP 125/69; PULSE 82; RESP 18; TEMP 36.7
--- NOTE | 2024-12-16 15:21 | PN.PCM_ITS ---
History of Present Illness Date of Service: 12/16/24 Chief Complaint: nonhealing wound left plantar foot History of Wound: Jose J is a 68 y/o gentleman that presents to the wound healing center for evaluation and treatment of a wound to his left plantar foot. He is a patient of Dr. Giordano. He has had a wound to this same area in February 2019 and was seen at [facility] and treated there for 9 weeks with Aquacel and was placed in a wedge shoe to offload his foot. He was treated for this same wound for almost a year at this wound center and was healed in May 2020 and returned in July and was treated until September. He had undergone vascular testing at [facility] in 2018 and this has been repeated 09/2023 without significant arterial disease. 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 He and his did not want to do surgery. He has managed to do well over the last 2 years until the end of October when the area became painful again and began draining. He saw Dr. Giordano and was treated with doxycycline which helped and they had been applying Aquacel that they had from previous treatment but it has not improved. He was treated with a second course of doxycycline and then referred here for treatment. He is still working and walking on his foot in a steel toe boot 4 days a week for 10 hours. He had an offloading pad in his work boot previously but no longer has this in place. He denies claudication with walking. He has moderate to heavy drainage from the ulcer. He has not had any wound cultures taken. 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 He denies fever, chill, nausea, vomiting, redness or odor. Subjective Subjective Jose J returns today for follow up of an ulcer on the bottom of his left foot. His ulcer and drainage are minimally changed since last visit. He denies fever, chills or odor. He had MRI on 10/02/23 which did not show any osteomyelitis of his foot. Arterial testing was also done and did not show any evidence of arterial insufficiency. HgbA1C was 6.3% on 07/2024. Objective Data Objective Data Vital Signs: Vital Signs Temp Pulse Resp BP O2 Del Method 98.1 F 82 18 125/69 H Room Air 12/16/24 10:03 12/16/24 10:03 12/16/24 10:03 12/16/24 10:03 12/16/24 10:03 Oxygen Delivery Method Room Air Physical Exam Const alert, oriented x3 and no apparent distress General Appearance: cooperative and comfortable HEENT normocephalic and head/scalp atraumatic Resp normal respiratory effort Effort and Inspection: able to speak in complete sentences Auscultation: rales, rhonchi and diminished lung sounds Cardio regular rate and regular rhythm Skin Wounds: wounds noted Wound Narrative: as in clinical panel, mild callus formation surrounding ulcer, no cellulitis or odor Psych mental status grossly normal, thought process normal, cooperative and affect normal Debridement Note Debridement Note Wound debrided: left lateral plantar ulcer Laterality: Left Wound Grade/Stage: Luther grade 1 Type of Debridement: Excisional debridement Anesthesia Used: 5% Lidocaine Gel Depth: Down to and including healthy tissue and in the subcutaneous layer Percentage of wound debrided: 100 Instrument Used: #15 blade and Forceps Tissue Removed: Yellow slough, devitalized tissue Severity: Fat Layer Exposed Amount of bleeding with debridement: Mild Bleeding Controlled with: Pressure and Silver Nitrate Patient tolerated procedure: Patient tolerated procedure well Post-Debridement Measurements and Additional Note: Post-Debridement Measurements/Treatment - Nurse 1 - General Ulcer Assessment Start: 12/09/24 10:11 Freq: Status: Active Protocol: WC.[place] Activity Type Activity Date Activity User E-sign Co-sign Detail Recorded Client Recorded Date Recorded By Document 12/09/24 10:11 [id number] 12/09/24 10:16 KW Document 12/16/24 10:03 KW [id number] 12/16/24 10:07 KW 12/09/24 12/16/24 10:11 10:03 - Today's Visit Information Type of service Follow-up Visit Follow-up Visit (Physician/SUBSTANCE ABUSE TECHNICIAN (Physician/SUBSTANCE ABUSE TECHNICIAN ) ) Arrival Mode Ambulatory Ambulatory Accompanied by Patient Identification Verified (Name & Yes Yes ) Vital Signs Temperature (97.8 F-99.1 F) 96.9 F L 98.1 F Temperature Source Temporal Temporal Pulse Rate (60-100) 72 82 Pulse Location Monitor Monitor Respiratory Rate (12-18) 18 18 Respiratory rate source Observation Observation Oxygen Delivery Method Room Air Room Air Blood Pressure (90/60-120/80) 130/77 H 125/69 H Blood Pressure Mean (mm Hg) 94 87 Source Monitor Monitor Position Semi-Fowlers Semi-Fowlers Blood Pressure Location Left Arm Left Arm History Since Last Visit- (Skip if this is Patient's initial visit) Have you changed medications since your No No last visit? Any new allergies or adverse reactions No No Had a fall/change in ADL's that may No No increase risk of falls Signs or symptoms of abuse and/or No No neglect since last visit Have you been in the hospital since your No No last visit? Has dressing in place as prescribed Yes Yes Has compression in place as prescribed Yes Yes Has offloadiing in place as prescribed N/A N/A Experienced any changes in pain level or No No management Left Footwear Regular Shoe Regular Shoe Right Footwear Regular Shoe Regular Shoe Pain Scale: 0-10 Numeric Is Patient Pain Free? Yes Yes WC - Nurse 1 - General Ulcer Measurement Start: 12/09/24 10:11 Freq: Status: Active Protocol: Activity Type Activity Date Activity User E-sign Co-sign Detail Recorded Client Recorded Date Recorded By Document 12/09/24 10:11 KW [id number] 12/09/24 10:16 KW Document 12/16/24 10:03 KW [id number] 12/16/24 10:07 KW 12/09/24 12/16/24 10:11 10:03 Wound Center Nurse 1 #3 L Lateral Plantar Foot -Current Size (cm) - Length 1 1.5 -Current Size (cm) - Width 1 1.7 -Current Size (cm) - Depth 0.1 0.1 -Total Square Cm 1 2.55 -Date of Last Picture (Recall this 12/09/24 12/16/24 field) -Exudate Amt Medium Medium -Exudate Type Serosanguineous Serosanguineous -Wound Margin Distinct, Distinct, Outline Outline Attached Attached -Granulation Amt Large (67-100%) Large (67-100%) -Granulation Quality [place] Red -Texture (Flory-wound Skin Appearance) Assessed Assessed,Callus -Moisture (Flory-wound Skin Appearance) Assessed Assessed -Color (Flory-wound Skin Appearance) Assessed Assessed -Temperature (Flory-wound Skin No Abnormality No Abnormality Appearance) (Pt Warm) (Pt Warm) -Tenderness on Palpation (Flory-wound No No Skin Appearance) -Ulcer Cleansing Rinsed/ Rinsed/ Irrigated with Irrigated with Saline Saline -Foul Odor after Cleansing No No -Anesthetic Used 5% Lidocaine 5% Lidocaine Gel Gel WC - Nurse 2 - General Ulcer CM Notes Start: 12/09/24 10:11 Freq: Status: Active Protocol: Activity Type Activity Date Activity User E-sign Co-sign Detail Recorded Client Recorded Date Recorded By Document 12/09/24 11:32 DS [id number] 12/09/24 11:46 DS Document 12/16/24 10:32 DS [id number] 12/16/24 10:45 DS 12/09/24 12/16/24 11:32 10:32 Wound Center Nurse 2 #3 L Lateral Plantar Foot -Time 11:32 10:32 -Correct Patient Yes Yes -Correct Side, Site, Position Yes Yes -Correct Procedure Yes Yes -Procedure Performed Yes Yes -Type of Procedure Debridement Debridement -Clinical Debridement Subcutaneous Subcutaneous -Tissue Removed Subcutaneous Subcutaneous -Post Debridement (cm) - Length 1.8 2.0 -Post Debridement (cm) - Width 1.5 1.0 -Post Debridement (cm) - Depth 0.1 0.1 -Total Square (Post) (cm) 2.70 2.00 -Area of Debridement (cm) - Length 1.8 2.0 -Area of Debridement (cm) - Width 1.5 1.0 -Total Square (Area) (cm) 2.70 2.00 -Tunneling No No -Undermining/Tunneling No No -Circular Undermining No No -Wound/Ulcer Outcome Not Healed Not Healed -Ulcer Cleansing Rinsed/ Rinsed/ Irrigated with Irrigated with Saline Saline -Foul Odor after Cleansing No No -Bioengineered Tissue No No -Bleeding Controlled with Pressure Pressure -Treatment Response Procedure Procedure Tolerated Well Tolerated Well -Debridement - Subq, 1st 20sq cm Yes Yes Pain Scale: 0-10 Numeric Is Patient Pain Free? Yes Yes WC - Nurse 3 - General Ulcer D/C NN Start: 12/09/24 10:11 Freq: Status: Active Protocol: Activity Type Activity Date Activity User E-sign Co-sign Detail Recorded Client Recorded Date Recorded By Document 12/09/24 11:53 [facility] [id number] 12/09/24 11:53 [facility] Document 12/16/24 11:01 [id number] 12/16/24 11:02 KW 12/09/24 12/16/24 11:53 11:01 Wound Care Center Nurse 3 #3 L Lateral Plantar Foot -Ulcer Cleansing Rinsed/ Irrigated with Saline -Foul Odor after Cleansing No -Primary Dressing Applied Aquacel Extra, Aquacel Extra, Promogran Promogran -Other Dressing drsg per dl retail sales professional -Primary Dressing Covered/Secured with Dry Gauze & Dry Gauze & Roll Gauze, Roll Gauze, Secured with Secured with Tape Tape -Aquacel Extra 1 1 -Promogran 1 1 -Wound Comment(s) apply promogran into ulcer then top with aquacel extra, cover with gauze Treatment Response Procedure Tolerated Well Pain Scale: 0-10 Numeric Is Patient Pain Free? Yes Yes WC - Visit Discharge Discharge Condition Stable Stable Ambulatory Status Ambulatory Ambulatory Transportation Private Auto Private Auto Accompanied by Medication Reconcilliation completed & No provided to patient/care provider Clinical Summary of Care Provided Yes Assessment/Plan Assessment/Plan (1) Delayed wound healing: CODE(S): T14.8XXD - Other injury of unspecified body region, subsequent encounter (2) Chronic ulcer of left foot with fat layer exposed: CODE(S): L97.522 - Non-pressure chronic ulcer of other part of left foot with fat layer exposed (3) HTN (hypertension): CODE(S): I10 - Essential (primary) hypertension QUALIFIERS: Hypertension type: primary hypertension Qualified Code(s): I10 - Essential (primary) hypertension (4) Diabetic ulcer of foot associated with diabetes mellitus due to underlying condition, with fat layer exposed: CODE(S): E08.621 - Diabetes mellitus due to underlying condition with foot ulcer; L97.502 - Non-pressure chronic ulcer of other part of unspecified foot with fat layer exposed QUALIFIERS: Diabetic foot ulcer location: midfoot Laterality: left Qualified Code(s): E08.621 - Diabetes mellitus due to underlying condition with foot ulcer; L97.422 - Non-pressure chronic ulcer of left heel and midfoot with fat layer exposed (5) Type 2 diabetes mellitus without complications: CODE(S): E11.9 - Type 2 diabetes mellitus without complications QUALIFIERS: Diabetes mellitus intermediate manager insulin use: without snf 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 It has been stable since his last visit but callus formation is still present. I suspect noncompliance of offloading to be a major factor in his delayed healing. At home wound-care instructions: Wash ulcer daily with antibacterial soap and water. Will have him continue Promogran and Aquacel Extra to ulcer and cover w ith gauze and roll gauze to secure daily. Keep dressing clean and dry. Discussed possibly using TCC for offloading. We also discussed that there may be a single vessel narrowing that could be preventing healing and talked about possible referral to Vascular surgery to do CTA runoff. He declines at this time. Also discussed surgical procedure proposed by podiatry to shave exostosis of bone that is likely causing ulcer and he declines at this time. Off-loading: The patient was instructed to avoid pressure and friction on the affected areas. Reposition every 2 hours at minimum. Avoid prolonged standing and/or dangling of legs. When seated, feet should be elevated at chest level. Frequent ambulation is encouraged. Diet: Patient encouraged to increase protein intake while taking caution to avoid high carbohydrate and/or sugar intake. Labs/cultures/imaging: Wound culture positive 03/27/23 and is currently on Doxycycline. Wound culture showed Staph and Strep and he was treated with Keflex based on sensitivities and use topical Gentamicin for 3 weeks. Wound culture done 09/18/23 was positive for staph epidermidis. He has been on cephalexin and doxycycline. Wound culture was positive for Enterococcus and Linezolid completed. Wound culture was positive and he will continue Flagyl, Cipro and hold cefdinir and decrease doxycycline to once/day. His put him back on Keflex and doxycycline when his ulcer worsened over . Wound culture on 04/29/24 was positive for Staph epidermidis and he completed Linezolid and is back to taking chronic doxycyline and on Bactrim. Wound culture taken showed Corynebacterium and we discussed starting him on Augmentin but are hesitant to do this because of a PCN allergy that he reports as a child but he does not recall the reaction. XR of foot was negative. MRI negative for osteomyelitis and arterial testing negative for arterial insufficiency. Repeat XR of foot was negative. XR ordered again to r/o osteomyelitis and was negative. Follow-up: Return in 1 week for wound care follow up. Return sooner or report to the emergency room should symptoms worsen, or new symptoms arise. Note: [employer] speech recognition administrative services assistant software was used to create portions of this document. Sound-alike and misspelled words, as well as other administrative services assistant errors may be contained in the documentation.
--- NOTE | 2024-12-20 09:44 | WC ---
PHOTO-LEFT LAT PLANTAR 12/16/24
== END 2024-12-22 23:59 | disposition home or self-care (01) ==
LOC: WC 10:15
PROVIDERS: PCP Family Medicine; Referring Provider Family Medicine; Visit Provider Family Medicine
DX: E11.621 Type 2 diabetes mellitus with foot ulcer (principal); L97.422 Non-pressure chronic ulcer of left heel and midfoot with fat layer exposed; C95.10 Chronic leukemia of unspecified cell type not having achieved remission; Z79.899 Other long term (current) drug therapy; I10 Essential (primary) hypertension
CPT/HCPCS: 11042

== ENCOUNTER 2025-01-13 10:15 | Outpatient (RCR) | payer MEDICARE, OTHER, SELFPAY ==
[2024-12-23 10:13] VITALS: BP 146/85; PULSE 83; RESP 18; TEMP 36.9
--- NOTE | 2024-12-23 14:56 | PCM.WC.PN ---
History of Present Illness Date of Service: 12/23/24 Chief Complaint: nonhealing wound left plantar foot History of Wound: Jose J is a 68 y/o gentleman that presents to the wound healing center for evaluation and treatment of a wound to his left plantar foot. He is a patient of Dr. Giordano. He has had a wound to this same area in February 2019 and was seen at [facility] and treated there for 9 weeks with Aquacel and was placed in a wedge shoe to offload his foot. He was treated for this same wound for almost a year at this wound center and was healed in May 2020 and returned in July and was treated until September. He had undergone vascular testing at [facility] in 2018 and this has been repeated 09/2023 without significant arterial disease. 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 He and his did not want to do surgery. He has managed to do well over the last 2 years until the end of October when the area became painful again and began draining. He saw Dr. Giordano and was treated with doxycycline which helped and they had been applying Aquacel that they had from previous treatment but it has not improved. He was treated with a second course of doxycycline and then referred here for treatment. He is still working and walking on his foot in a steel toe boot 4 days a week for 10 hours. He had an offloading pad in his work boot previously but no longer has this in place. He denies claudication with walking. He has moderate to heavy drainage from the ulcer. He has not had any wound cultures taken. 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 He denies fever, chill, nausea, vomiting, redness or odor. Subjective Subjective Jose J returns today for follow up of an ulcer on the bottom of his left foot. His ulcer and drainage are minimally changed since last visit. He denies fever, chills or odor. He had MRI on 10/02/23 which did not show any osteomyelitis of his foot. Arterial testing was also done and did not show any evidence of arterial insufficiency. HgbA1C was 6.3% on 07/2024. He was recently diagnosed with lung cancer - through follow up CT of nodules and + PET scan. Specifics of cancer are unknown until a biopsy is done. Objective Data Objective Data Vital Signs: Vital Signs Temp Pulse Resp BP O2 Del Method 98.5 F 83 18 146/85 H Room Air 12/23/24 10:13 12/23/24 10:13 12/23/24 10:13 12/23/24 10:13 12/23/24 10:13 Oxygen Delivery Method Room Air Physical Exam Const alert, oriented x3 and no apparent distress General Appearance: cooperative and comfortable HEENT normocephalic and head/scalp atraumatic Resp normal respiratory effort Effort and Inspection: able to speak in complete sentences Auscultation: rales, rhonchi and diminished lung sounds Cardio regular rate and regular rhythm Skin Wounds: wounds noted Wound Narrative: as in clinical panel, mild callus formation surrounding ulcer, no cellulitis or odor Psych mental status grossly normal, thought process normal, cooperative and affect normal Debridement Note Debridement Note Wound debrided: left lateral plantar ulcer Laterality: Left Wound Grade/Stage: Luther grade 1 Type of Debridement: Excisional debridement Anesthesia Used: 5% Lidocaine Gel Depth: Down to and including healthy tissue and in the subcutaneous layer Percentage of wound debrided: 100 Instrument Used: #15 blade and Forceps Tissue Removed: Yellow slough, devitalized tissue Severity: Fat Layer Exposed Amount of bleeding with debridement: Mild Bleeding Controlled with: Pressure and Silver Nitrate Patient tolerated procedure: Patient tolerated procedure well Post-Debridement Measurements and Additional Note: Post-Debridement Measurements/Treatment QUOC - Nurse 1 - General Ulcer Assessment Start: 12/23/24 10:13 Freq: Status: Active Protocol: KANIKA Activity Type Activity Date Activity User E-sign Co-sign Detail Recorded Client Recorded Date Recorded By Document 12/23/24 10:13 DS [id number] 12/23/24 10:21 DS 12/23/24 10:13 Vital Signs Temperature (97.8 F-99.1 F) 98.5 F Temperature Source Temporal Pulse Rate (60-100) 83 Pulse Location Monitor Respiratory Rate (12-18) 18 Respiratory rate source Observation Oxygen Delivery Method Room Air Blood Pressure (90/60-120/80) 146/85 H Blood Pressure Mean (mm Hg) 105 Source Monitor Position Sitting Blood Pressure Location Right Arm History Since Last Visit- (Skip if this is Patient's initial visit) Have you changed medications since your No last visit? Any new allergies or adverse reactions No Had a fall/change in ADL's that may No increase risk of falls Signs or symptoms of abuse and/or No neglect since last visit Have you been in the hospital since your No last visit? Has dressing in place as prescribed Yes Has compression in place as prescribed N/A Has offloadiing in place as prescribed N/A Experienced any changes in pain level or No management Left Footwear Regular Shoe Right Footwear Regular Shoe Pain Scale: 0-10 Numeric Is Patient Pain Free? Yes WC - Nurse 1 - General Ulcer Measurement Start: 12/23/24 10:13 Freq: Status: Active Protocol: Activity Type Activity Date Activity User E-sign Co-sign Detail Recorded Client Recorded Date Recorded By Document 12/23/24 10:13 DS [id number] 12/23/24 10:21 DS 12/23/24 10:13 Wound Center Nurse 1 #3 L Lateral Plantar Foot -Current Size (cm) - Length 2.0 -Current Size (cm) - Width 1.0 -Current Size (cm) - Depth 0.1 -Total Square Cm 2.00 -Date of Last Picture (Recall this 12/23/24 field) -Photo Taken Yes -Tunneling No -Undermining/Tunneling No -Circular Undermining No -Exudate Amt Small -Exudate Type Serosanguineous -Wound Margin Distinct, Outline Attached -Granulation Amt Large (67-100%) -Granulation Quality [place] -Necrosis Amt Small (1-33%) -Necrotic Tissue Type Adherent Slough -Texture (Flory-wound Skin Appearance) Assessed -Moisture (Flory-wound Skin Appearance) Assessed -Color (Flory-wound Skin Appearance) Assessed -Temperature (Flory-wound Skin No Abnormality Appearance) (Pt Warm) -Ulcer Cleansing Soap and Water -Foul Odor after Cleansing No -Anesthetic Used 5% Lidocaine Gel QUOC - Nurse 2 - General Ulcer CM Notes Start: 12/23/24 10:13 Freq: Status: Active Protocol: Activity Type Activity Date Activity User E-sign Co-sign Detail Recorded Client Recorded Date Recorded By Document 12/23/24 11:46 GM [id number] 12/23/24 11:50 GM Edit Result 12/23/24 11:46 GM (1) [id number] 12/23/24 11:51 GM (1) #3 L Lateral Plantar Foot - Bleeding Controlled with Pressure => Pressure,Silver => Nitrate ($) 12/23/24 11:46 Wound Center Nurse 2 -Time 11:46 -Correct Patient Yes -Correct Side, Site, Position Yes -Correct Procedure Yes -Procedure Performed Yes -Type of Procedure Debridement -Clinical Debridement Subcutaneous -Tissue Removed Subcutaneous -Post Debridement (cm) - Length 2.0 -Post Debridement (cm) - Width 1.0 -Post Debridement (cm) - Depth 0.2 -Total Square (Post) (cm) 2.00 -Area of Debridement (cm) - Length 2.0 -Area of Debridement (cm) - Width 1.0 -Total Square (Area) (cm) 2.00 -Tunneling No -Undermining/Tunneling No -Circular Undermining No -Wound/Ulcer Outcome Not Healed -Ulcer Cleansing Rinsed/ Irrigated with Saline -Foul Odor after Cleansing No -Bioengineered Tissue No -Bleeding Controlled with Pressure,Silver Nitrate ($) -Treatment Response Procedure Tolerated Well -Offloading No -Debridement - Subq, 1st 20sq cm Yes Pain Scale: 0-10 Numeric Is Patient Pain Free? Yes - Nurse 3 - General Ulcer D/C NN Start: 12/23/24 10:13 Freq: Status: Active Protocol: Activity Type Activity Date Activity User E-sign Co-sign Detail Recorded Client Recorded Date Recorded By Document 12/23/24 12:24 [id number] 12/23/24 12:25 KW 12/23/24 12:24 Wound Care Center Nurse 3 #3 L Lateral Plantar Foot -Primary Dressing Applied Aquacel Extra -Primary Dressing Covered/Secured with Dry Gauze & Roll Gauze, Secured with Tape -Aquacel Extra 1 Pain Scale: 0-10 Numeric Is Patient Pain Free? Yes WC - Visit Discharge Discharge Condition Stable Ambulatory Status Ambulatory Transportation Private Auto Medication Reconcilliation completed & No provided to patient/care provider Clinical Summary of Care Provided Yes Assessment/Plan Assessment/Plan (1) Delayed wound healing: CODE(S): T14.8XXD - Other injury of unspecified body region, subsequent encounter (2) Chronic ulcer of left foot with fat layer exposed: CODE(S): L97.522 - Non-pressure chronic ulcer of other part of left foot with fat layer exposed (3) HTN (hypertension): CODE(S): I10 - Essential (primary) hypertension QUALIFIERS: Hypertension type: primary hypertension Qualified Code(s): I10 - Essential (primary) hypertension (4) Diabetic ulcer of foot associated with diabetes mellitus due to underlying condition, with fat layer exposed: CODE(S): E08.621 - Diabetes mellitus due to underlying condition with foot ulcer; L97.502 - Non-pressure chronic ulcer of other part of unspecified foot with fat layer exposed QUALIFIERS: Diabetic foot ulcer location: midfoot Laterality: left Qualified Code(s): E08.621 - Diabetes mellitus due to underlying condition with foot ulcer; L97.422 - Non-pressure chronic ulcer of left heel and midfoot with fat layer exposed (5) Type 2 diabetes mellitus without complications: CODE(S): E11.9 - Type 2 diabetes mellitus without complications QUALIFIERS: Diabetes mellitus jail insulin use: without long term care pharmacist 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 It has been stable since his last visit but callus formation is still present. I suspect noncompliance of offloading to be a major factor in his delayed healing. At home wound-care instructions: Wash ulcer daily with antibacterial soap and water. Will have him use Aquacel Extra to ulcer and cover with gauze and roll gauze to secure daily. Keep dressing clean and dry. Discussed possibly using TCC for offloading. We also discussed that there may be a single vessel narrowing that could be preventing healing and talked about possible referral to Vascular surgery to do CTA runoff. He declines at this time. Also discussed surgical procedure proposed by podiatry to shave exostosis of bone that is likely causing ulcer and he declines at this time. Off-loading: The patient was instructed to avoid pressure and friction on the affected areas. Reposition every 2 hours at minimum. Avoid prolonged standing and/or dangling of legs. When seated, feet should be elevated at chest level. Frequent ambulation is encouraged. Diet: Patient encouraged to increase protein intake while taking caution to avoid high carbohydrate and/or sugar intake. Labs/cultures/imaging: Wound culture positive 03/27/23 and is currently on Doxycycline. Wound culture showed Staph and Strep and he was treated with Keflex based on sensitivities and use topical Gentamicin for 3 weeks. Wound culture done 09/18/23 was positive for staph epidermidis. He has been on cephalexin and doxycycline. Wound culture was positive for Enterococcus and Linezolid completed. Wound culture was positive and he will continue Flagyl, Cipro and hold cefdinir and decrease doxycycline to once/day. His put him back on Keflex and doxycycline when his ulcer worsened over . Wound culture on 04/29/24 was positive for Staph epidermidis and he completed Linezolid and is back to taking chronic doxycyline and on Bactrim. Wound culture taken showed Corynebacterium and we discussed starting him on Augmentin but are hesitant to do this because of a PCN allergy that he reports as a child but he does not recall the reaction. XR of foot was negative. MRI negative for osteomyelitis and arterial testing negative for arterial insufficiency. Repeat XR of foot was negative. XR ordered again to r/o osteomyelitis and was negative. Follow-up: Return in 2 weeks for wound care follow up. Return sooner or report to the emergency room should symptoms worsen, or new symptoms arise. Note: [employer] speech recognition community arts officer software was used to create portions of this document. Sound-alike and misspelled words, as well as other community arts officer errors may be contained in the documentation.
--- NOTE | 2024-12-26 10:40 | WC ---
PHOTO-LEFT PLANTAR 12/23/24
[2025-01-06 10:44] VITALS: BP 119/82; PULSE 83; RESP 17; TEMP 36.9
--- NOTE | 2025-01-06 14:56 | PCM.WC.PN ---
History of Present Illness Date of Service: 01/06/25 Chief Complaint: nonhealing wound left plantar foot History of Wound: Jose J is a 68 y/o gentleman that presents to the wound healing center for evaluation and treatment of a wound to his left plantar foot. He is a patient of Dr. Giordano. He has had a wound to this same area in February 2019 and was seen at [facility] [place] and treated there for 9 weeks with Aquacel and was placed in a wedge shoe to offload his foot. He was treated for this same wound for almost a year at this wound center and was healed in May 2020 and returned in July and was treated until September. He had undergone vascular testing at [facility] in 2018 and this has been repeated 09/2023 without significant arterial disease. 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 He and his did not want to do surgery. He has managed to do well over the last 2 years until the end of October when the area became painful again and began draining. He saw Dr. Giordano and was treated with doxycycline which helped and they had been applying Aquacel that they had from previous treatment but it has not improved. He was treated with a second course of doxycycline and then referred here for treatment. He is still working and walking on his foot in a steel toe boot 4 days a week for 10 hours. He had an offloading pad in his work boot previously but no longer has this in place. He denies claudication with walking. He has moderate to heavy drainage from the ulcer. He has not had any wound cultures taken. 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 He denies fever, chill, nausea, vomiting, redness or odor. Subjective Subjective Jose J returns today for follow up of an ulcer on the bottom of his left foot. His ulcer and drainage are minimally changed since last visit. He denies fever, chills or odor. He had MRI on 10/02/23 which did not show any osteomyelitis of his foot. Arterial testing was also done and did not show any evidence of arterial insufficiency. HgbA1C was 6.3% on 07/2024. He was recently diagnosed with lung cancer - through follow up CT of nodules and + PET scan. Specifics of cancer are unknown until a biopsy is done. Objective Data Objective Data Vital Signs: Vital Signs Temp Pulse Resp BP O2 Del Method 98.4 F 83 17 119/82 H Room Air 01/06/25 10:44 01/06/25 10:44 01/06/25 10:44 01/06/25 10:44 12/23/24 10:13 Oxygen Delivery Method Room Air Physical Exam Const alert, oriented x3 and no apparent distress General Appearance: cooperative and comfortable HEENT normocephalic and head/scalp atraumatic Resp normal respiratory effort Effort and Inspection: able to speak in complete sentences Auscultation: rales, rhonchi and diminished lung sounds Cardio regular rate and regular rhythm Skin Wounds: wounds noted Wound Narrative: as in clinical panel, mild callus formation surrounding ulcer, no cellulitis or odor Psych mental status grossly normal, thought process normal, cooperative and affect normal Debridement Note Debridement Note Wound debrided: left lateral plantar ulcer Laterality: Left Wound Grade/Stage: Luther grade 1 Type of Debridement: Excisional debridement Anesthesia Used: 5% Lidocaine Gel Depth: Down to and including healthy tissue and in the subcutaneous layer Percentage of wound debrided: 100 Instrument Used: #15 blade and Forceps Tissue Removed: Yellow slough, devitalized tissue Severity: Fat Layer Exposed Amount of bleeding with debridement: Mild Bleeding Controlled with: Pressure Patient tolerated procedure: Patient tolerated procedure well Post-Debridement Measurements and Additional Note: Post-Debridement Measurements/Treatment - Nurse 1 - General Ulcer Assessment Start: 12/23/24 10:13 Freq: Status: Active Protocol: KANIKA Activity Type Activity Date Activity User E-sign Co-sign Detail Recorded Client Recorded Date Recorded By Document 12/23/24 10:13 DS [id number] 12/23/24 10:21 DS Document 01/06/25 10:44 DL [id number] 01/06/25 10:49 DL 12/23/24 01/06/25 10:13 10:44 - Today's Visit Information Type of service Follow-up Visit (Physician/VALUATION MANAGER ) Arrival Mode Ambulatory Transfer Assistance None Patient Identification Verified (Name & Yes ) Patient Requires Transmission-Based No Precautions Vital Signs Temperature (97.8 F-99.1 F) 98.5 F 98.4 F Temperature Source Temporal Temporal Pulse Rate (60-100) 83 83 Pulse Location Monitor Monitor Respiratory Rate (12-18) 18 17 Respiratory rate source Observation Observation Oxygen Delivery Method Room Air Blood Pressure (90/60-120/80) 146/85 H 119/82 H Blood Pressure Mean (mm Hg) 105 94 Source Monitor Monitor Position Sitting Blood Pressure Location Right Arm History Since Last Visit- (Skip if this is Patient's initial visit) Have you changed medications since your No No last visit? Any new allergies or adverse reactions No No Had a fall/change in ADL's that may No No increase risk of falls Signs or symptoms of abuse and/or No No neglect since last visit Have you been in the hospital since your No No last visit? Has dressing in place as prescribed Yes Yes Has compression in place as prescribed N/A N/A Has offloadiing in place as prescribed N/A N/A Experienced any changes in pain level or No No management Left Footwear Regular Shoe Right Footwear Regular Shoe Pain Scale: 0-10 Numeric Is Patient Pain Free? Yes Yes WC - Nurse 1 - General Ulcer Measurement Start: 12/23/24 10:13 Freq: Status: Active Protocol: Activity Type Activity Date Activity User E-sign Co-sign Detail Recorded Client Recorded Date Recorded By Document 12/23/24 10:13 DS [id number] 12/23/24 10:21 DS Document 01/06/25 10:44 DL [id number] 01/06/25 10:49 DL 12/23/24 01/06/25 10:13 10:44 Wound Center Nurse 1 #3 L Lateral Plantar Foot -Current Size (cm) - Length 2.0 1.3 -Current Size (cm) - Width 1.0 0.8 -Current Size (cm) - Depth 0.1 0.2 -Total Square Cm 2.00 1.04 -Date of Last Picture (Recall this 12/23/24 field) -Photo Taken Yes -Tunneling No -Undermining/Tunneling No -Circular Undermining No -Exudate Amt Small Medium -Exudate Type Serosanguineous Serosanguineous -Wound Margin Distinct, Thickened Outline Attached -Granulation Amt Large (67-100%) Large (67-100%) -Granulation Quality [place] Pale,[place] -Necrosis Amt Small (1-33%) Small (1-33%) -Necrotic Tissue Type Adherent Slough Adherent Slough -Structure Exposed N/A -Texture (Flory-wound Skin Appearance) Assessed Callus,Scarring -Moisture (Flory-wound Skin Appearance) Assessed No Abnormality -Color (Flory-wound Skin Appearance) Assessed No Abnormality -Temperature (Flory-wound Skin No Abnormality No Abnormality Appearance) (Pt Warm) (Pt Warm) -Tenderness on Palpation (Flory-wound No Skin Appearance) -Ulcer Cleansing Soap and Water Rinsed/ Irrigated with Saline -Foul Odor after Cleansing No No -Anesthetic Used 5% Lidocaine 5% Lidocaine Gel Gel WC - Nurse 2 - General Ulcer CM Notes Start: 12/23/24 10:13 Freq: Status: Active Protocol: Activity Type Activity Date Activity User E-sign Co-sign Detail Recorded Client Recorded Date Recorded By Document 12/23/24 11:46 GM [id number] 12/23/24 11:50 GM Edit Result 12/23/24 11:46 GM (1) [id number] 12/23/24 11:51 GM Document 01/06/25 11:42 GM [id number] 01/06/25 12:03 GM (1) #3 L Lateral Plantar Foot - Bleeding Controlled with Pressure => Pressure,Silver => Nitrate ($) 12/23/24 01/06/25 11:46 11:42 Wound Center Nurse 2 #3 L Lateral Plantar Foot -Time 11:46 12:01 -Correct Patient Yes Yes -Correct Side, Site, Position Yes Yes -Correct Procedure Yes Yes -Procedure Performed Yes Yes -Type of Procedure Debridement Debridement -Clinical Debridement Subcutaneous Subcutaneous -Tissue Removed Subcutaneous Subcutaneous -Post Debridement (cm) - Length 2.0 1.9 -Post Debridement (cm) - Width 1.0 1.1 -Post Debridement (cm) - Depth 0.2 0.1 -Total Square (Post) (cm) 2.00 2.09 -Area of Debridement (cm) - Length 2.0 1.9 -Area of Debridement (cm) - Width 1.0 1.1 -Total Square (Area) (cm) 2.00 2.09 -Tunneling No No -Undermining/Tunneling No No -Circular Undermining No No -Wound/Ulcer Outcome Not Healed Not Healed -Ulcer Cleansing Rinsed/ Rinsed/ Irrigated with Irrigated with Saline Saline -Foul Odor after Cleansing No No -Bioengineered Tissue No No -Bleeding Controlled with Pressure,Silver Pressure Nitrate ($) -Treatment Response Procedure Procedure Tolerated Well Tolerated Well -Offloading No No -Debridement - Subq, 1st 20sq cm Yes Yes Pain Scale: 0-10 Numeric Is Patient Pain Free? Yes Yes - Nurse 3 - General Ulcer D/C NN Start: 12/23/24 10:13 Freq: Status: Active Protocol: Activity Type Activity Date Activity User E-sign Co-sign Detail Recorded Client Recorded Date Recorded By Document 12/23/24 12:24 KW [id number] 12/23/24 12:25 KW Document 01/06/25 12:11 ML [id number] 01/06/25 12:12 ML 12/23/24 01/06/25 12:24 12:11 Wound Care Center Nurse 3 #3 L Lateral Plantar Foot -Ulcer Cleansing Rinsed/ Irrigated with Saline -Primary Dressing Applied Aquacel Extra Aquacel Extra -Primary Dressing Covered/Secured with Dry Gauze & Dry Gauze & Roll Gauze, Roll Gauze, Secured with Secured with Tape Tape -Aquacel Extra 1 1 Pain Scale: 0-10 Numeric Is Patient Pain Free? Yes Yes - Visit Discharge Discharge Condition Stable Ambulatory Status Ambulatory Transportation Private Auto Medication Reconcilliation completed & No provided to patient/care provider Clinical Summary of Care Provided Yes Assessment/Plan Assessment/Plan (1) Delayed wound healing: CODE(S): T14.8XXD - Other injury of unspecified body region, subsequent encounter (2) Chronic ulcer of left foot with fat layer exposed: CODE(S): L97.522 - Non-pressure chronic ulcer of other part of left foot with fat layer exposed (3) HTN (hypertension): CODE(S): I10 - Essential (primary) hypertension QUALIFIERS: Hypertension type: primary hypertension Qualified Code(s): I10 - Essential (primary) hypertension (4) Diabetic ulcer of foot associated with diabetes mellitus due to underlying condition, with fat layer exposed: CODE(S): E08.621 - Diabetes mellitus due to underlying condition with foot ulcer; L97.502 - Non-pressure chronic ulcer of other part of unspecified foot with fat layer exposed QUALIFIERS: Diabetic foot ulcer location: midfoot Laterality: left Qualified Code(s): E08.621 - Diabetes mellitus due to underlying condition with foot ulcer; L97.422 - Non-pressure chronic ulcer of left heel and midfoot with fat layer exposed (5) Type 2 diabetes mellitus without complications: CODE(S): E11.9 - Type 2 diabetes mellitus without complications QUALIFIERS: Diabetes mellitus usp insulin use: without usp 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 It has been stable since his last visit but callus formation is still present. I suspect noncompliance of offloading to be a major factor in his delayed healing. At home wound-care instructions: Wash ulcer daily with antibacterial soap and water. Will have him use Aquacel Extra to ulcer and cover with gauze and roll gauze to secure daily. Keep dressing clean and dry. Discussed possibly using TCC for offloading. We also discussed that there may be a single vessel narrowing that could be preventing healing and talked about possible referral to Vascular surgery to do CTA runoff. He declines at this time. Also discussed surgical procedure proposed by podiatry to shave exostosis of bone that is likely causing ulcer and he declines at this time. Off-loading: The patient was instructed to avoid pressure and friction on the affected areas. Reposition every 2 hours at minimum. Avoid prolonged standing and/or dangling of legs. When seated, feet should be elevated at chest level. Frequent ambulation is encouraged. Diet: Patient encouraged to increase protein intake while taking caution to avoid high carbohydrate and/or sugar intake. Labs/cultures/imaging: Wound culture positive 03/27/23 and is currently on Doxycycline. Wound culture showed Staph and Strep and he was treated with Keflex based on sensitivities and use topical Gentamicin for 3 weeks. Wound culture done 09/18/23 was positive for staph epidermidis. He has been on cephalexin and doxycycline. Wound culture was positive for Enterococcus and Linezolid completed. Wound culture was positive and he will continue Flagyl, Cipro and hold cefdinir and decrease doxycycline to once/day. His put him back on Keflex and doxycycline when his ulcer worsened over . Wound culture on 04/29/24 was positive for Staph epidermidis and he completed Linezolid and is back to taking chronic doxycyline and on Bactrim. Wound culture taken showed Corynebacterium and we discussed starting him on Augmentin but are hesitant to do this because of a PCN allergy that he reports as a child but he does not recall the reaction. XR of foot was negative. MRI negative for osteomyelitis and arterial testing negative for arterial insufficiency. Repeat XR of foot was negative. XR ordered again to r/o osteomyelitis and was negative. Follow-up: Return in 2 weeks for wound care follow up. Return sooner or report to the emergency room should symptoms worsen, or new symptoms arise. Note: [email or web address] speech recognition agricultural commodities grader software was used to create portions of this document. Sound-alike and misspelled words, as well as other agricultural commodities grader errors may be contained in the documentation.
[2025-01-13 10:31] VITALS: BP 143/83; PULSE 77; RESP 18; TEMP 36.6
--- NOTE | 2025-01-13 15:25 | PN.PCM_ITS ---
History of Present Illness Date of Service: 01/13/25 Chief Complaint: nonhealing wound left plantar foot History of Wound: Jose J is a 68 y/o gentleman that presents to the wound healing center for evaluation and treatment of a wound to his left plantar foot. He is a patient of Dr. Giordano. He has had a wound to this same area in February 2019 and was seen at [facility] [place] and treated there for 9 weeks with Aquacel and was placed in a wedge shoe to offload his foot. He was treated for this same wound for almost a year at this wound center and was healed in May 2020 and returned in July and was treated until September. He had undergone vascular testing at [facility] in 2018 and this has been repeated 09/2023 without significant arterial disease. 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 He and his did not want to do surgery. He has managed to do well over the last 2 years until the end of October when the area became painful again and began draining. He saw Dr. Giordano and was treated with doxycycline which helped and they had been applying Aquacel that they had from previous treatment but it has not improved. He was treated with a second course of doxycycline and then referred here for treatment. He is still working and walking on his foot in a steel toe boot 4 days a week for 10 hours. He had an offloading pad in his work boot previously but no longer has this in place. He denies claudication with walking. He has moderate to heavy drainage from the ulcer. He has not had any wound cultures taken. 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 He denies fever, chill, nausea, vomiting, redness or odor. Subjective Subjective Jose J returns today for follow up of an ulcer on the bottom of his left foot. His ulcer and drainage are minimally changed since last visit. He denies fever, chills or odor. He had MRI on 10/02/23 which did not show any osteomyelitis of his foot. Arterial testing was also done and did not show any evidence of arterial insufficiency. HgbA1C was 6.3% on 07/2024. He was recently diagnosed with lung cancer - through follow up CT of nodules and + PET scan. Specifics of cancer are unknown until a biopsy is done. Objective Data Objective Data Vital Signs: Vital Signs Temp Pulse Resp BP O2 Del Method 98 F 77 18 143/83 H Room Air 01/13/25 10:31 01/13/25 10:31 01/13/25 10:31 01/13/25 10:31 12/23/24 10:13 Oxygen Delivery Method Room Air Physical Exam Const alert, oriented x3 and no apparent distress General Appearance: cooperative and comfortable HEENT normocephalic and head/scalp atraumatic Resp normal respiratory effort Effort and Inspection: able to speak in complete sentences Auscultation: rales, rhonchi and diminished lung sounds Cardio regular rate and regular rhythm Skin Wounds: wounds noted Wound Narrative: as in clinical panel, mild callus formation surrounding ulcer, no cellulitis or odor Psych mental status grossly normal, thought process normal, cooperative and affect normal Debridement Note Debridement Note Wound debrided: left lateral plantar ulcer Laterality: Left Wound Grade/Stage: Luther grade 1 Type of Debridement: Excisional debridement Anesthesia Used: 5% Lidocaine Gel Depth: Down to and including healthy tissue and in the subcutaneous layer Percentage of wound debrided: 100 Instrument Used: #15 blade and Forceps Tissue Removed: Yellow slough, devitalized tissue Severity: Fat Layer Exposed Amount of bleeding with debridement: Mild Bleeding Controlled with: Pressure Patient tolerated procedure: Patient tolerated procedure well Post-Debridement Measurements and Additional Note: Post-Debridement Measurements/Treatment - Nurse 1 - General Ulcer Assessment Start: 12/23/24 10:13 Freq: Status: Active Protocol: KANIKA Activity Type Activity Date Activity User E-sign Co-sign Detail Recorded Client Recorded Date Recorded By Document 12/23/24 10:13 DS [id number] 12/23/24 10:21 DS Document 01/06/25 10:44 DL [id number] 01/06/25 10:49 DL Document 01/13/25 10:31 RB [id number] 01/13/25 10:33 RB 12/23/24 01/06/25 01/13/25 10:13 10:44 10:31 - Today's Visit Information Type of service Follow-up Visit Follow-up Visit (Physician/MARRIAGE THERAPIST (Physician/MARRIAGE THERAPIST ) ) Arrival Mode Ambulatory Ambulatory Transfer Assistance None None Patient Identification Verified (Name & Yes Yes ) Patient Requires Transmission-Based No No Precautions Vital Signs Temperature (97.8 F-99.1 F) 98.5 F 98.4 F 98 F Temperature Source Temporal Temporal Temporal Pulse Rate (60-100) 83 83 77 Pulse Location Monitor Monitor Monitor Respiratory Rate (12-18) 18 17 18 Respiratory rate source Observation Observation Observation Oxygen Delivery Method Room Air Blood Pressure (90/60-120/80) 146/85 H 119/82 H 143/83 H Blood Pressure Mean (mm Hg) 105 94 103 Source Monitor Monitor Monitor Position Sitting Semi-Fowlers Blood Pressure Location Right Arm Left Arm History Since Last Visit- (Skip if this is Patient's initial visit) Have you changed medications since your No No No last visit? Any new allergies or adverse reactions No No No Had a fall/change in ADL's that may No No No increase risk of falls Signs or symptoms of abuse and/or No No No neglect since last visit Have you been in the hospital since your No No No last visit? Has dressing in place as prescribed Yes Yes Yes Has compression in place as prescribed N/A N/A N/A Has offloadiing in place as prescribed N/A N/A Yes Experienced any changes in pain level or No No No management Left Footwear Regular Shoe Regular Shoe Right Footwear Regular Shoe Regular Shoe Pain Scale: 0-10 Numeric Is Patient Pain Free? Yes Yes Yes WC - Nurse 1 - General Ulcer Measurement Start: 12/23/24 10:13 Freq: Status: Active Protocol: Activity Type Activity Date Activity User E-sign Co-sign Detail Recorded Client Recorded Date Recorded By Document 12/23/24 10:13 DS [id number] 12/23/24 10:21 DS Document 01/06/25 10:44 DL [id number] 01/06/25 10:49 DL Document 01/13/25 10:31 RB [id number] 01/13/25 10:33 RB 12/23/24 01/06/25 01/13/25 10:13 10:44 10:31 Wound Center Nurse 1 #3 L Lateral Plantar Foot -Combined with other wound No -Current Size (cm) - Length 2.0 1.3 1 -Current Size (cm) - Width 1.0 0.8 0.8 -Current Size (cm) - Depth 0.1 0.2 0.2 -Total Square Cm 2.00 1.04 0.8 -Date of Last Picture (Recall this 12/23/24 field) -Photo Taken Yes Yes -Tunneling No No -Undermining/Tunneling No No -Circular Undermining No No -Exudate Amt Small Medium Medium -Exudate Type Serosanguineous Serosanguineous Serosanguineous -Wound Margin Distinct, Thickened Distinct, Outline Outline Attached Attached -Granulation Amt Large (67-100%) Large (67-100%) Medium (34-66%) -Granulation Quality [place] Pale,[place] -Slough/Fibrin Yes -Necrosis Amt Small (1-33%) Small (1-33%) Medium (34-66%) -Necrotic Tissue Type Adherent Slough Adherent Slough Adherent Slough -Structure Exposed N/A N/A -Texture (Flory-wound Skin Appearance) Assessed Callus,Scarring Assessed,Callus -Moisture (Flory-wound Skin Appearance) Assessed No Abnormality Assessed -Color (Flory-wound Skin Appearance) Assessed No Abnormality Assessed -Temperature (Flory-wound Skin No Abnormality No Abnormality No Abnormality Appearance) (Pt Warm) (Pt Warm) (Pt Warm) -Tenderness on Palpation (Flory-wound No No Skin Appearance) -Ulcer Cleansing Soap and Water Rinsed/ Wound Cleanser Irrigated with Saline -Foul Odor after Cleansing No No No -Anesthetic Used 5% Lidocaine 5% Lidocaine 5% Lidocaine Gel Gel Gel WC - Nurse 2 - General Ulcer CM Notes Start: 12/23/24 10:13 Freq: Status: Active Protocol: Activity Type Activity Date Activity User E-sign Co-sign Detail Recorded Client Recorded Date Recorded By Document 12/23/24 11:46 GM [id number] 12/23/24 11:50 GM Edit Result 12/23/24 11:46 GM (1) [id number] 12/23/24 11:51 GM Document 01/06/25 11:42 GM [id number] 01/06/25 12:03 GM Document 01/13/25 11:37 GM [id number] 01/13/25 11:47 GM (1) #3 L Lateral Plantar Foot - Bleeding Controlled with Pressure => Pressure,Silver => Nitrate ($) 12/23/24 01/06/25 01/13/25 11:46 11:42 11:37 Wound Center Nurse 2 #3 L Lateral Plantar Foot -Time 11:46 12:01 11:38 -Correct Patient Yes Yes Yes -Correct Side, Site, Position Yes Yes Yes -Correct Procedure Yes Yes Yes -Procedure Performed Yes Yes Yes -Type of Procedure Debridement Debridement Debridement -Clinical Debridement Subcutaneous Subcutaneous Subcutaneous -Tissue Removed Subcutaneous Subcutaneous Subcutaneous -Post Debridement (cm) - Length 2.0 1.9 1.8 -Post Debridement (cm) - Width 1.0 1.1 1.2 -Post Debridement (cm) - Depth 0.2 0.1 0.1 -Total Square (Post) (cm) 2.00 2.09 2.16 -Area of Debridement (cm) - Length 2.0 1.9 1.8 -Area of Debridement (cm) - Width 1.0 1.1 1.2 -Total Square (Area) (cm) 2.00 2.09 2.16 -Tunneling No No No -Undermining/Tunneling No No No -Circular Undermining No No No -Wound/Ulcer Outcome Not Healed Not Healed Not Healed -Ulcer Cleansing Rinsed/ Rinsed/ Rinsed/ Irrigated with Irrigated with Irrigated with Saline Saline Saline -Foul Odor after Cleansing No No No -Bioengineered Tissue No No No -Bleeding Controlled with Pressure,Silver Pressure Pressure Nitrate ($) -Treatment Response Procedure Procedure Procedure Tolerated Well Tolerated Well Tolerated Well -Offloading No No -Debridement - Subq, 1st 20sq cm Yes Yes Yes Pain Scale: 0-10 Numeric Is Patient Pain Free? Yes Yes Yes WC - Nurse 3 - General Ulcer D/C NN Start: 12/23/24 10:13 Freq: Status: Active Protocol: Activity Type Activity Date Activity User E-sign Co-sign Detail Recorded Client Recorded Date Recorded By Document 12/23/24 12:24 KW [id number] 12/23/24 12:25 KW Document 01/06/25 12:11 ML [id number] 01/06/25 12:12 ML Document 01/13/25 12:03 [facility] [id number] 01/13/25 12:03 [facility] 12/23/24 01/06/25 01/13/25 12:24 12:11 12:03 Wound Care Center Nurse 3 #3 L Lateral Plantar Foot -Ulcer Cleansing Rinsed/ Rinsed/ Irrigated with Irrigated with Saline Saline -Foul Odor after Cleansing No -Primary Dressing Applied Aquacel Extra Aquacel Extra Aquacel Extra -Primary Dressing Covered/Secured with Dry Gauze & Dry Gauze & Dry Gauze & Roll Gauze, Roll Gauze, Roll Gauze, Secured with Secured with Secured with Tape Tape Tape -Aquacel Extra 1 1 1 Treatment Response Procedure Tolerated Well Pain Scale: 0-10 Numeric Is Patient Pain Free? Yes Yes Yes WC - Visit Discharge Discharge Condition Stable Stable Ambulatory Status Ambulatory Ambulatory Transportation Private Auto Private Auto Medication Reconcilliation completed & No provided to patient/care provider Clinical Summary of Care Provided Yes Assessment/Plan Assessment/Plan (1) Delayed wound healing: CODE(S): T14.8XXD - Other injury of unspecified body region, subsequent encounter (2) Chronic ulcer of left foot with fat layer exposed: CODE(S): L97.522 - Non-pressure chronic ulcer of other part of left foot with fat layer exposed (3) HTN (hypertension): CODE(S): I10 - Essential (primary) hypertension QUALIFIERS: Hypertension type: primary hypertension Qualified Code(s): I10 - Essential (primary) hypertension (4) Diabetic ulcer of foot associated with diabetes mellitus due to underlying condition, with fat layer exposed: CODE(S): E08.621 - Diabetes mellitus due to underlying condition with foot ulcer; L97.502 - Non-pressure chronic ulcer of other part of unspecified foot with fat layer exposed QUALIFIERS: Diabetic foot ulcer location: midfoot Laterality: left Qualified Code(s): E08.621 - Diabetes mellitus due to underlying condition with foot ulcer; L97.422 - Non-pressure chronic ulcer of left heel and midfoot with fat layer exposed (5) Type 2 diabetes mellitus without complications: CODE(S): E11.9 - Type 2 diabetes mellitus without complications QUALIFIERS: Diabetes mellitus intermediate teacher insulin use: without residential 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 It has been stable since his last visit but callus formation is still present. I suspect noncompliance of offloading to be a major factor in his delayed healing. At home wound-care instructions: Wash ulcer daily with antibacterial soap and water. Will have him use Aquacel Extra to ulcer and cover with gauze and roll gauze to secure daily. Keep dressing clean and dry. Discussed possibly using TCC for offloading. We also discussed that there may be a single vessel narrowing that could be preventing healing and talked about possible referral to Vascular surgery to do CTA runoff. He declines at this time. Also discussed surgical procedure proposed by podiatry to shave exostosis of bone that is likely causing ulcer and he declines at this time. Off-loading: The patient was instructed to avoid pressure and friction on the a ffected areas. Reposition every 2 hours at minimum. Avoid prolonged standing and/or dangling of legs. When seated, feet should be elevated at chest level. Frequent ambulation is encouraged. Diet: Patient encouraged to increase protein intake while taking caution to avoid high carbohydrate and/or sugar intake. Labs/cultures/imaging: Wound culture positive 03/27/23 and is currently on Doxycycline. Wound culture showed Staph and Strep and he was treated with Keflex based on sensitivities and use topical Gentamicin for 3 weeks. Wound culture done 09/18/23 was positive for staph epidermidis. He has been on cephalexin and doxycycline. Wound culture was positive for Enterococcus and Linezolid completed. Wound culture was positive and he will continue Flagyl, Cipro and hold cefdinir and decrease doxycycline to once/day. His put him back on Keflex and doxycycline when his ulcer worsened over . Wound culture on 04/29/24 was positive for Staph epidermidis and he completed Linezolid and is back to taking chronic doxycyline and on Bactrim. Wound culture taken showed Corynebacterium and we discussed starting him on Augmentin but are hesitant to do this because of a PCN allergy that he reports as a child but he does not recall the reaction. XR of foot was negative. MRI negative for osteomyelitis and arterial testing negative for arterial insufficiency. Repeat XR of foot was negative. XR ordered again to r/o osteomyelitis and was negative. Follow-up: Return in 2 weeks for wound care follow up. Return sooner or report to the emergency room should symptoms worsen, or new symptoms arise. Note: [employer] speech recognition it business systems analyst software was used to create portions of this document. Sound-alike and misspelled words, as well as other it business systems analyst errors may be contained in the documentation.
== END 2025-01-22 23:59 | disposition home or self-care (01) ==
LOC: WC 10:15
PROVIDERS: PCP Family Medicine; Referring Provider Family Medicine; Visit Provider Family Medicine
DX: E11.621 Type 2 diabetes mellitus with foot ulcer (principal); C34.90 Malignant neoplasm of unspecified part of unspecified bronchus or lung; L97.422 Non-pressure chronic ulcer of left heel and midfoot with fat layer exposed; C95.10 Chronic leukemia of unspecified cell type not having achieved remission; Z79.899 Other long term (current) drug therapy; L84 Corns and callosities; I10 Essential (primary) hypertension
CPT/HCPCS: 11042

== ENCOUNTER 2025-01-27 11:08 | Outpatient (RCR) | payer MEDICARE, OTHER, SELFPAY ==
[2025-01-27 10:43] VITALS: BP 128/95; PULSE 79; RESP 18; TEMP 35.9
--- NOTE | 2025-01-27 13:40 | WC ---
PHOTO-LEFT PLANTAR 01/27/25
--- NOTE | 2025-01-27 15:20 | PCM.WC.PN ---
History of Present Illness Date of Service: 01/27/25 Chief Complaint: nonhealing wound left plantar foot History of Wound: Jose J is a 68 y/o gentleman that presents to the wound healing center for evaluation and treatment of a wound to his left plantar foot. He is a patient of Dr. Giordano. He has had a wound to this same area in February 2019 and was seen at [facility] [place] and treated there for 9 weeks with Aquacel and was placed in a wedge shoe to offload his foot. He was treated for this same wound for almost a year at this wound center and was healed in May 2020 and returned in July and was treated until September. He had undergone vascular testing at [facility] in 2018 and this has been repeated 09/2023 without significant arterial disease. 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 He and his did not want to do surgery. He has managed to do well over the last 2 years until the end of October when the area became painful again and began draining. He saw Dr. Giordano and was treated with doxycycline which helped and they had been applying Aquacel that they had from previous treatment but it has not improved. He was treated with a second course of doxycycline and then referred here for treatment. He is still working and walking on his foot in a steel toe boot 4 days a week for 10 hours. He had an offloading pad in his work boot previously but no longer has this in place. He denies claudication with walking. He has moderate to heavy drainage from the ulcer. He has not had any wound cultures taken. 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 He denies fever, chill, nausea, vomiting, redness or odor. Subjective Subjective Jose J returns today for follow up of an ulcer on the bottom of his left foot. His ulcer and drainage are minimally changed since last visit. He denies fever, chills or odor. He had MRI on 10/02/23 which did not show any osteomyelitis of his foot. Arterial testing was also done and did not show any evidence of arterial insufficiency. HgbA1C was 6.3% on 07/2024. He was recently diagnosed with lung cancer - through follow up CT of nodules and + PET scan. Specifics of cancer are unknown until a biopsy is done. He has been on his feet more the last week due to being evicted from his rental home of 42 years by his landlord and only having 30 days to pack and vacate the property. Objective Data Objective Data Vital Signs: Vital Signs Temp Pulse Resp BP O2 Del Method 96.7 F L 79 18 128/95 H Room Air 01/27/25 10:43 01/27/25 10:43 01/27/25 10:43 01/27/25 10:43 01/27/25 10:43 Oxygen Delivery Method Room Air Physical Exam Const alert, oriented x3 and no apparent distress General Appearance: cooperative and comfortable HEENT normocephalic and head/scalp atraumatic Resp normal respiratory effort Effort and Inspection: able to speak in complete sentences Auscultation: rales, rhonchi and diminished lung sounds Cardio regular rate and regular rhythm Skin Wounds: wounds noted Wound Narrative: as in clinical panel, mild callus formation surrounding ulcer, no cellulitis or odor Psych mental status grossly normal, thought process normal, cooperative and affect normal Debridement Note Debridement Note Wound debrided: left lateral plantar ulcer Laterality: Left Wound Grade/Stage: Luther grade 1 Type of Debridement: Excisional debridement Anesthesia Used: 5% Lidocaine Gel Depth: Down to and including healthy tissue and in the subcutaneous layer Percentage of wound debrided: 100 Instrument Used: #15 blade and Forceps Tissue Removed: Yellow slough, devitalized tissue Severity: Fat Layer Exposed Amount of bleeding with debridement: Moderate Bleeding Controlled with: Pressure and Silver Nitrate Patient tolerated procedure: Patient tolerated procedure well Post-Debridement Measurements and Additional Note: Post-Debridement Measurements/Treatment - Nurse 1 - General Ulcer Assessment Start: 01/27/25 10:43 Freq: Status: Active Protocol: QUOC.AMADA Activity Type Activity Date Activity User E-sign Co-sign Detail Recorded Client Recorded Date Recorded By Document 01/27/25 10:43 NICOLÁS [id number] 01/27/25 10:53 NICOLÁS 01/27/25 10:43 - Today's Visit Information Type of service Follow-up Visit (Physician/CLAIMS SUPPORT SPECIALIST ) Arrival Mode Ambulatory Accompanied by Patient Identification Verified (Name & Yes ) Vital Signs Temperature (97.8 F-99.1 F) 96.7 F L Temperature Source Temporal Pulse Rate (60-100) 79 Pulse Location Monitor Respiratory Rate (12-18) 18 Respiratory rate source Observation Oxygen Delivery Method Room Air Blood Pressure (90/60-120/80) 128/95 H Blood Pressure Mean (mm Hg) 106 Source Monitor Position Semi-Fowlers Blood Pressure Location Left Arm History Since Last Visit- (Skip if this is Patient's initial visit) Have you changed medications since your No last visit? Any new allergies or adverse reactions No Had a fall/change in ADL's that may No increase risk of falls Signs or symptoms of abuse and/or No neglect since last visit Have you been in the hospital since your No last visit? Has dressing in place as prescribed Yes Has compression in place as prescribed N/A Has offloadiing in place as prescribed N/A Experienced any changes in pain level or No management Left Footwear Regular Shoe Right Footwear Regular Shoe Pain Scale: 0-10 Numeric Is Patient Pain Free? Yes WC - Nurse 1 - General Ulcer Measurement Start: 01/27/25 10:43 Freq: Status: Active Protocol: Activity Type Activity Date Activity User E-sign Co-sign Detail Recorded Client Recorded Date Recorded By Document 01/27/25 10:43 NICOLÁS [id number] 01/27/25 10:53 KW 01/27/25 10:43 Wound Center Nurse 1 #3 L Lateral Plantar Foot -Current Size (cm) - Length 1.3 -Current Size (cm) - Width 1.1 -Current Size (cm) - Depth 0.2 -Total Square Cm 1.43 -Date of Last Picture (Recall this 01/27/25 field) -Exudate Amt Small -Exudate Type Serosanguineous -Wound Margin Thickened & Rolled Under -Granulation Amt Large (67-100%) -Granulation Quality [place],Red -Texture (Flory-wound Skin Appearance) Assessed,Callus -Moisture (Flory-wound Skin Appearance) Assessed -Color (Flory-wound Skin Appearance) Assessed -Temperature (Flory-wound Skin No Abnormality Appearance) (Pt Warm) -Tenderness on Palpation (Flory-wound No Skin Appearance) -Ulcer Cleansing Rinsed/ Irrigated with Saline -Foul Odor after Cleansing No -Anesthetic Used 5% Lidocaine Gel WC - Nurse 2 - General Ulcer CM Notes Start: 01/27/25 10:43 Freq: Status: Active Protocol: Activity Type Activity Date Activity User E-sign Co-sign Detail Recorded Client Recorded Date Recorded By Document 01/27/25 11:41 [id number] 01/27/25 11:58 01/27/25 11:41 Wound Center Nurse 2 -Time 11:41 -Correct Patient Yes -Correct Side, Site, Position Yes -Correct Procedure Yes -Procedure Performed Yes -Type of Procedure Debridement -Clinical Debridement Subcutaneous -Tissue Removed Subcutaneous -Post Debridement (cm) - Length 1.3 -Post Debridement (cm) - Width 1.4 -Post Debridement (cm) - Depth 0.1 -Total Square (Post) (cm) 1.82 -Area of Debridement (cm) - Length 1.3 -Area of Debridement (cm) - Width 1.4 -Total Square (Area) (cm) 1.82 -Tunneling No -Undermining/Tunneling No -Circular Undermining No -Wound/Ulcer Outcome Not Healed -Ulcer Cleansing Rinsed/ Irrigated with Saline -Foul Odor after Cleansing No -Bioengineered Tissue No -Bleeding Controlled with Pressure -Treatment Response Procedure Tolerated Well -Offloading No -Debridement - Subq, 1st 20sq cm Yes Pain Scale: 0-10 Numeric Is Patient Pain Free? Yes WC - Nurse 3 - General Ulcer D/C NN Start: 01/27/25 10:43 Freq: Status: Active Protocol: Activity Type Activity Date Activity User E-sign Co-sign Detail Recorded Client Recorded Date Recorded By Document 01/27/25 12:15 [id number] 01/27/25 12:15 01/27/25 12:15 Wound Care Center Nurse 3 #3 L Lateral Plantar Foot -Primary Dressing Applied Aquacel Extra -Primary Dressing Covered/Secured with Dry Gauze & Roll Gauze, Secured with Tape -Aquacel Extra 1 Pain Scale: 0-10 Numeric Is Patient Pain Free? Yes WC - Visit Discharge Discharge Condition Stable Ambulatory Status Ambulatory Transportation Private Auto Accompanied by Medication Reconcilliation completed & No provided to patient/care provider Clinical Summary of Care Provided Yes Assessment/Plan Assessment/Plan (1) Delayed wound healing: CODE(S): T14.8XXD - Other injury of unspecified body region, subsequent encounter (2) Chronic ulcer of left foot with fat layer exposed: CODE(S): L97.522 - Non-pressure chronic ulcer of other part of left foot with fat layer exposed (3) HTN (hypertension): CODE(S): I10 - Essential (primary) hypertension QUALIFIERS: Hypertension type: primary hypertension Qualified Code(s): I10 - Essential (primary) hypertension (4) Diabetic ulcer of foot associated with diabetes mellitus due to underlying condition, with fat layer exposed: CODE(S): E08.621 - Diabetes mellitus due to underlying condition with foot ulcer; L97.502 - Non-pressure chronic ulcer of other part of unspecified foot with fat layer exposed QUALIFIERS: Diabetic foot ulcer location: midfoot Laterality: left Qualified Code(s): E08.621 - Diabetes mellitus due to underlying condition with foot ulcer; L97.422 - Non-pressure chronic ulcer of left heel and midfoot with fat layer exposed (5) Type 2 diabetes mellitus without complications: CODE(S): E11.9 - Type 2 diabetes mellitus without complications QUALIFIERS: 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 It has been stable since his last visit but callus formation is still present. I suspect noncompliance of offloading to be a major factor in his delayed healing. At home wound-care instructions: Wash ulcer daily with antibacterial soap and water. Will have him use Aquacel Extra to ulcer and cover with gauze and roll gauze to secure daily. Keep dressing clean and dry. Discussed possibly using TCC for offloading. We also discussed that there may be a single vessel narrowing that could be preventing healing and talked about possible referral to Vascular surgery to do CTA runoff. He declines at this time. Also discussed surgical procedure proposed by podiatry to shave exostosis of bone that is likely causing ulcer and he declines at this time. Off-loading: The patient was instructed to avoid pressure and friction on the affected areas. Reposition every 2 hours at minimum. Avoid prolonged standing and/or dangling of legs. When seated, feet should be elevated at chest level. Frequent ambulation is encouraged. Diet: Patient encouraged to increase protein intake while taking caution to avoid high carbohydrate and/or sugar intake. Labs/cultures/imaging: Wound culture positive 03/27/23 and is currently on Doxycycline. Wound culture showed Staph and Strep and he was treated with Keflex based on sensitivities and use topical Gentamicin for 3 weeks. Wound culture done 09/18/23 was positive for staph epidermidis. He has been on cephalexin and doxycycline. Wound culture was positive for Enterococcus and Linezolid completed. Wound culture was positive and he will continue Flagyl, Cipro and hold cefdinir and decrease doxycycline to once/day. His put him back on Keflex and doxycycline when his ulcer worsened over . Wound culture on 04/29/24 was positive for Staph epidermidis and he completed Linezolid and is back to taking chronic doxycyline and on Bactrim. Wound culture taken showed Corynebacterium and we discussed starting him on Augmentin but are hesitant to do this because of a PCN allergy that he reports as a child but he does not recall the reaction. XR of foot was negative. MRI negative for osteomyelitis and arterial testing negative for arterial insufficiency. Repeat XR of foot was negative. XR ordered again to r/o osteomyelitis and was negative. Follow-up: Return in 2 weeks for wound care follow up. Return sooner or report to the emergency room should symptoms worsen, or new symptoms arise. Note: [employer] speech recognition cardiovascular physician assistant software was used to create portions of this document. Sound-alike and misspelled words, as well as other cardiovascular physician assistant errors may be contained in the documentation.
== END 2025-02-21 23:59 | disposition home or self-care (01) ==
LOC: WC 11:08
PROVIDERS: PCP Family Medicine; Referring Provider Family Medicine; Visit Provider Family Medicine
DX: E11.621 Type 2 diabetes mellitus with foot ulcer (principal); L97.522 Non-pressure chronic ulcer of other part of left foot with fat layer exposed; I10 Essential (primary) hypertension
CPT/HCPCS: 11042

== ENCOUNTER 2025-03-24 10:00 | Outpatient (RCR) | payer MEDICARE, OTHER, SELFPAY ==
[2025-02-24 09:50] VITALS: BP 148/75; PULSE 84; RESP 18; TEMP 36.1
--- NOTE | 2025-02-24 11:20 | RAD_ITS ---
PROCEDURE: FOOT MIN 3 VIEWS 02/24/2025 REASON FOR EXAM: UCLER TECHNIQUE: Procedure Code: RADFO Modality: DX Procedure: FOOT MIN 3 VIEWS Laterality: Left foot COMPARISON: Prior study dated March 25, 2024. FINDINGS: Bones: No bony abnormality is seen. Small calcaneal spur. Joints: Normal alignment. Soft tissues: Soft tissue changes with focal calcification overlying the 5th metatarsophalangeal joint. Other: RAD/Foot min 3 Views IMPRESSION: Soft tissue changes with focal calcification overlying the 5th metatarsophalang eal joint. No bony destruction is seen. Reading Location: [facility]
--- NOTE | 2025-02-24 11:20 | RAD_ITS ---
PROCEDURE: TOE(S) MIN 2 VIEWS 02/24/2025 REASON FOR EXAM: ULCER TECHNIQUE: Procedure Code: RADTO Modality: DX Procedure: TOE(S) MIN 2 VIEWS Laterality: Left toes. COMPARISON: Prior study dated February 24, 2025. FINDINGS: No visible fracture. Normal alignment. Soft tissue changes with focal calcification overlying the head of the 5th metatarsal. Soft tissue swelling. RAD/Toe(s) Min 2 Views IMPRESSION: No fracture is seen. Soft tissue changes overlying the head of the 5th metatarsal. Reading Location: [id number]
--- NOTE | 2025-02-24 13:22 | PCM.WC.PN ---
History of Present Illness Date of Service: 02/24/25 Chief Complaint: nonhealing wound left plantar foot History of Wound: Jose J is a 68 y/o gentleman that presents to the wound healing center for evaluation and treatment of a wound to his left plantar foot. He is a patient of Dr. Giordano. He has had a wound to this same area in February 2019 and was seen at [facility] [place] and treated there for 9 weeks with Aquacel and was placed in a wedge shoe to offload his foot. He was treated for this same wound for almost a year at this wound center and was healed in May 2020 and returned in July and was treated until September 2020. He had undergone vascular testing at [facility] in 2018 and this has been repeated 09/2023 without significant arterial disease. 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 He and his did not want to do surgery. He has managed to do well from September 2020 until end of October 2022 when the area became painful again and began draining. He saw Dr. Giordano and was treated with doxycycline which helped and they had been applying Aquacel that they had from previous treatment but it has not improved. He was treated with a second course of doxycycline and then referred here for treatment. He is still working and walking on his foot in a steel toe boot 4 days a week for 10 hours. He had an offloading pad in his work boot previously but no longer has this in place. He denies claudication with walking. He has moderate to heavy drainage from the ulcer. He has not had any wound cultures taken. He was diagnosed with chronic leukemia in 2023 due to elevated WBC count but is not currently requiring any treatment except for monitoring. He denies fever, chill, nausea, vomiting, redness or odor. Subjective Subjective Jose J returns today for follow up of an ulcer on the bottom of his left foot. His ulcer and drainage have worsened since last visit. He unfortunately has missed 3 weeks of treatment due to doctors appointments and also needing to urgently move from his rental home of 42 years with only a 30 day notice. He was on his feet significantly more during the last few weeks due to packing and moving. He did develop a fever, nausea, and chills about 10 days ago after he had been having increased pain in his foot which subsided after the ulcer began to drain more purulent drainage. He denies current fever, chills or odor. He had MRI on 10/02/23 which did not show any osteomyelitis of his foot. Arterial testing was also done and did not show any evidence of arterial insufficiency. HgbA1C was 6.3% on 07/2024. He was recently diagnosed with lung cancer - through follow up CT of nodules and + PET scan. Specifics of cancer are unknown until a biopsy is done. Objective Data Objective Data Vital Signs: Vital Signs Temp Pulse Resp BP 97 F L 84 18 148/75 H 02/24/25 09:50 02/24/25 09:50 02/24/25 09:50 02/24/25 09:50 Physical Exam Const alert, oriented x3 and no apparent distress General Appearance: cooperative and comfortable HEENT normocephalic and head/scalp atraumatic Resp normal respiratory effort Effort and Inspection: able to speak in complete sentences Auscultation: rales, rhonchi and diminished lung sounds Cardio regular rate and regular rhythm Skin Wounds: wounds noted Wound Narrative: as in clinical panel, mild callus formation surrounding ulcer, no cellulitis or odor Psych mental status grossly normal, thought process normal, cooperative and affect normal Debridement Note Debridement Note Wound debrided: left lateral plantar ulcer Laterality: Left Wound Grade/Stage: Luther grade 3 Type of Debridement: Excisional debridement Anesthesia Used: 5% Lidocaine Gel Depth: Down to and including healthy tissue and in the subcutaneous layer Percentage of wound debrided: 100 Instrument Used: #15 blade and Forceps Tissue Removed: Yellow slough, devitalized tissue Severity: Fat Layer Exposed Amount of bleeding with debridement: Moderate Bleeding Controlled with: Pressure and Silver Nitrate Patient tolerated procedure: Patient tolerated procedure well Post-Debridement Measurements and Additional Note: Post-Debridement Measurements/Treatment - Nurse 1 - General Ulcer Assessment Start: 02/24/25 09:50 Freq: Status: Active Protocol: KANIKA Activity Type Activity Date Activity User E-sign Co-sign Detail Recorded Client Recorded Date Recorded By Document 02/24/25 09:50 RB [id number] 02/24/25 09:52 RB 02/24/25 09:50 - Today's Visit Information Type of service Follow-up Visit (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 Any new allergies or adverse reactions No Had a fall/change in ADL's that may No increase risk of falls Signs or symptoms of abuse and/or No neglect since last visit Have you been in the hospital since your No last visit? Has dressing in place as prescribed Yes Has compression in place as prescribed Yes Has offloadiing in place as prescribed No Experienced any changes in pain level or No management Pain Scale: 0-10 Numeric Is Patient Pain Free? Yes WC - Nurse 1 - General Ulcer Measurement Start: 02/24/25 09:50 Freq: Status: Active Protocol: Activity Type Activity Date Activity User E-sign Co-sign Detail Recorded Client Recorded Date Recorded By Document 02/24/25 09:50 RB [id number] 02/24/25 09:52 RB 02/24/25 09:50 Wound Center Nurse 1 #3 L Lateral Plantar Foot -Combined with other wound No -Current Size (cm) - Length 1.4 -Current Size (cm) - Width 1.4 -Current Size (cm) - Depth 0.5 -Total Square Cm 1.96 -Photo Taken Yes -Undermining/Tunneling No -Circular Undermining No -Exudate Amt Medium -Exudate Type Serosanguineous -Wound Margin Thickened -Granulation Amt Medium (34-66%) -Granulation Quality Economy -Slough/Fibrin Yes -Necrosis Amt Medium (34-66%) -Necrotic Tissue Type Adherent Slough -Structure Exposed N/A -Texture (Flory-wound Skin Appearance) Assessed,Callus -Moisture (Flory-wound Skin Appearance) Assessed -Color (Flory-wound Skin Appearance) Assessed -Temperature (Flory-wound Skin No Abnormality Appearance) (Pt Warm) -Tenderness on Palpation (Floyr-wound No Skin Appearance) -Ulcer Cleansing Wound Cleanser -Foul Odor after Cleansing No -Anesthetic Used 5% Lidocaine Gel - Nurse 2 - General Ulcer CM Notes Start: 02/24/25 09:50 Freq: Status: Active Protocol: Activity Type Activity Date Activity User E-sign Co-sign Detail Recorded Client Recorded Date Recorded By Document 02/24/25 10:28 [id number] 02/24/25 10:50 GM 02/24/25 10:28 Wound Center Nurse 2 -Time 10:28 -Correct Patient Yes -Correct Side, Site, Position Yes -Correct Procedure Yes -Procedure Performed Yes -Type of Procedure Debridement -Clinical Debridement Subcutaneous -Tissue Removed Subcutaneous -Post Debridement (cm) - Length 2.3 -Post Debridement (cm) - Width 2.0 -Post Debridement (cm) - Depth 0.3 -Total Square (Post) (cm) 4.60 -Area of Debridement (cm) - Length 2.3 -Area of Debridement (cm) - Width 2.0 -Total Square (Area) (cm) 4.60 -Tunneling No -Undermining/Tunneling Yes -Undermining/Tunneling Starts (O'clock 12 ) -Undermining/Tunneling Ends (O'clock) 12 -Maximum Distance (cm) 1.2 -Circular Undermining No -Wound/Ulcer Outcome Not Healed -Ulcer Cleansing Rinsed/ Irrigated with Saline -Foul Odor after Cleansing No -Bioengineered Tissue No -Bleeding Controlled with Pressure,Silver Nitrate ($) -Treatment Response Procedure Tolerated Well -Offloading No -Debridement - Subq, 1st 20sq cm Yes Pain Scale: 0-10 Numeric Is Patient Pain Free? Yes - Nurse 3 - General Ulcer D/C NN Start: 02/24/25 09:50 Freq: Status: Active Protocol: Activity Type Activity Date Activity User E-sign Co-sign Detail Recorded Client Recorded Date Recorded By Document 02/24/25 11:06 MARIA [id number] 02/24/25 11:06 MARIA 02/24/25 11:06 Wound Care Center Nurse 3 #3 L Lateral Plantar Foot -Ulcer Cleansing Rinsed/ Irrigated with Saline -Foul Odor after Cleansing No -Primary Dressing Applied Aquacel Extra -Primary Dressing Covered/Secured with Dry Gauze & Roll Gauze, Secured with Tape -Aquacel Extra 1 Pain Scale: 0-10 Numeric Is Patient Pain Free? Yes WC - Visit Discharge Discharge Condition Stable Ambulatory Status Ambulatory Transportation Private Auto Accompanied by Medication Reconcilliation completed & Yes provided to patient/care provider Clinical Summary of Care Provided Yes Assessment/Plan Assessment/Plan (1) Delayed wound healing: CODE(S): T14.8XXD - Other injury of unspecified body region, subsequent encounter (2) Chronic ulcer of left foot with fat layer exposed: CODE(S): L97.522 - Non-pressure chronic ulcer of other part of left foot with fat layer exposed (3) HTN (hypertension): CODE(S): I10 - Essential (primary) hypertension QUALIFIERS: Hypertension type: primary hypertension Qualified Code(s): I10 - Essential (primary) hypertension (4) Diabetic ulcer of foot associated with diabetes mellitus due to underlying condition, with fat layer exposed: CODE(S): E08.621 - Diabetes mellitus due to underlying condition with foot ulcer; L97.502 - Non-pressure chronic ulcer of other part of unspecified foot with fat layer exposed QUALIFIERS: Diabetic foot ulcer location: midfoot Laterality: left Qualified Code(s): E08.621 - Diabetes mellitus due to underlying condition with foot ulcer; L97.422 - Non-pressure chronic ulcer of left heel and midfoot with fat layer exposed (5) Type 2 diabetes mellitus without complications: CODE(S): E11.9 - Type 2 diabetes mellitus without complications PLAN: Plan Debridement performed today in clinic as annotated above. It has significantly worsened since his last visit. I suspect noncompliance of offloading to be a major factor in his delayed healing. At home wound-care instructions: Wash ulcer daily with antibacterial soap and water. Will have him use Aquacel Extra to ulcer and cover with gauze and roll gauze to secure daily. Keep dressing clean and dry. Due to the undermining and worsening of his ulcer, it is medically necessary to employ the assistance of a wound vac in healing his ulcer. The goal of therapy would be to increase granulation to cover the tendon and eliminate the undermining of his ulcer. The wound vac would be set to 125 mm Hg and would be changed twice weekly. This is necessary to salvage his foot from amputation. Discussed possibly using TCC for offloading. We also discussed that there may be a single vessel narrowing that could be preventing healing and talked about possible referral to Vascular surgery to do CTA runoff. He declines at this time. Also discussed surgical procedure proposed by podiatry to shave exostosis of bone that is likely causing ulcer and he declines at this time. Off-loading: The patient was instructed to avoid pressure and friction on the affected areas. Reposition every 2 hours at minimum. Avoid prolonged standing and/or dangling of legs. When seated, feet should be elevated at chest level. Frequent ambulation is encouraged. Diet: Patient encouraged to increase protein intake while taking caution to avoid high carbohydrate and/or sugar intake. Labs/cultures/imaging: Wound culture positive 03/27/23 and is currently on Doxycycline. Wound culture showed Staph and Strep and he was treated with Keflex based on sensitivities and use topical Gentamicin for 3 weeks. Wound culture done 09/18/23 was positive for staph epidermidis. He has been on cephalexin and doxycycline. Wound culture was positive for Enterococcus and Linezolid completed. Wound culture was positive and he will continue Flagyl, Cipro and hold cefdinir and decrease doxycycline to once/day. His put him back on Keflex and doxycycline when his ulcer worsened over . Wound culture on 04/29/24 was positive for Staph epidermidis and he completed Linezolid and is back to taking chronic doxycyline and on Bactrim. Wound culture taken showed Corynebacterium and we discussed starting him on Augmentin but are hesitant to do this because of a PCN allergy that he reports as a child but he does not recall the reaction. Wound culture taken 02/24/25 due to worsening of ulcer. XR of foot was negative. MRI negative for osteomyelitis and arterial testing negative for arterial insufficiency. Repeat XR of foot was negative. XR ordered again to r/o osteomyelitis and was negative 07/2024. Xray of left foot and 5th toe ordered today to evaluate for osteomyelitis and may need MRI for further evaluation. Follow-up: Return in 1 week for wound care follow up. Return sooner or report to the emergency room should symptoms worsen, or new symptoms arise. Note: [employer] speech recognition dental technician instructor software was used to create portions of this document. Sound-alike and misspelled words, as well as other dental technician instructor errors may be contained in the documentation.
[2025-03-03 10:37] VITALS: BP 128/76; PULSE 79; RESP 18; TEMP 36.4
--- NOTE | 2025-03-03 15:22 | PCM.WC.PN ---
History of Present Illness Date of Service: 03/03/25 Chief Complaint: nonhealing wound left plantar foot History of Wound: Jose J is a 68 y/o gentleman that presents to the wound healing center for evaluation and treatment of a wound to his left plantar foot. He is a patient of Dr. Giordano. He has had a wound to this same area in February 2019 and was seen at [facility] and treated there for 9 weeks with Aquacel and was placed in a wedge shoe to offload his foot. He was treated for this same wound for almost a year at this wound center and was healed in May 2020 and returned in July and was treated until September 2020. He had undergone vascular testing at [facility] in 2018 and this has been repeated 09/2023 without significant arterial disease. 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 He and his did not want to do surgery. He has managed to do well from September 2020 until end of October 2022 when the area became painful again and began draining. He saw Dr. Giordano and was treated with doxycycline which helped and they had been applying Aquacel that they had from previous treatment but it has not improved. He was treated with a second course of doxycycline and then referred here for treatment. He is still working and walking on his foot in a steel toe boot 4 days a week for 10 hours. He had an offloading pad in his work boot previously but no longer has this in place. He denies claudication with walking. He has moderate to heavy drainage from the ulcer. He has not had any wound cultures taken. He was diagnosed with chronic leukemia in 2023 due to elevated WBC count but is not currently requiring any treatment except for monitoring. He denies fever, chill, nausea, vomiting, redness or odor. Subjective Subjective Jose J returns today for follow up of an ulcer on the bottom of his left foot. His ulcer and drainage are stable since last visit. He is tolerating dressings. Wound vac was unable to be obtained due to insurance issues. Hopefully this will be resolved this week. Culture was positive and he was started on antibiotic. He also had xray which was negative for osteomyelitis. He denies current fever, chills or odor. He had MRI on 10/02/23 which did not show any osteomyelitis of his foot. Arterial testing was also done and did not show any evidence of arterial insufficiency. HgbA1C was 6.3% on 07/2024. He was recently diagnosed with lung cancer - through follow up CT of nodules and + PET scan. Specifics of cancer are unknown until a biopsy is done. Objective Data Objective Data Vital Signs: Vital Signs Temp Pulse Resp BP O2 Del Method 97.6 F L 79 18 128/76 H Room Air 03/03/25 10:37 03/03/25 10:37 03/03/25 10:37 03/03/25 10:37 03/03/25 10:37 Oxygen Delivery Method Room Air Lab / Micro Data Micro: Microbiology 02/24/25 10:44 Wound - Left Foot Gram Stain - Final 02/24/25 10:44 Wound - Left Foot Wound Culture - Final Corynebacterium striatum Staphylococcus epidermidis#2 Staphylococcus epidermidis 02/24/25 10:44 Wound - Left Foot Anaerobic Culture - Final No anaerobic bacteria isolated. Physical Exam Const alert, oriented x3 and no apparent distress General Appearance: cooperative and comfortable HEENT normocephalic and head/scalp atraumatic Resp normal respiratory effort Effort and Inspection: able to speak in complete sentences Cardio regular rate and regular rhythm Skin Wounds: wounds noted Wound Narrative: as in clinical panel, exposure of capsule of tendon and significant undermining from 12 o clock to 6 o'clock, no cellulitis or odor Psych mental status grossly normal, thought process normal, cooperative and affect normal Debridement Note Debridement Note Wound debrided: left lateral plantar ulcer Laterality: Left Wound Grade/Stage: Luther grade 3 Type of Debridement: Excisional debridement Anesthesia Used: 5% Lidocaine Gel Depth: Down to and including healthy tissue and in the subcutaneous layer Percentage of wound debrided: 100 Instrument Used: #15 blade and Forceps Tissue Removed: Yellow slough, devitalized tissue Severity: Fat Layer Exposed Amount of bleeding with debridement: Moderate Bleeding Controlled with: Pressure and Silver Nitrate Patient tolerated procedure: Patient tolerated procedure well Post-Debridement Measurements and Additional Note: Post-Debridement Measurements/Treatment WC - Nurse 1 - General Ulcer Assessment Start: 02/24/25 09:50 Freq: Status: Active Protocol: KANIKA Activity Type Activity Date Activity User E-sign Co-sign Detail Recorded Client Recorded Date Recorded By Document 02/24/25 09:50 RB [id number] 02/24/25 09:52 RB Document 03/03/25 10:37 DS [id number] 03/03/25 10:45 DS 02/24/25 03/03/25 09:50 10:37 - Today's Visit Information Type of service Follow-up Visit Follow-up Visit (Physician/INTEGRATION DEVELOPER (Physician/INTEGRATION DEVELOPER ) ) Arrival Mode Ambulatory Ambulatory Transfer Assistance None Patient Identification Verified (Name & Yes Yes ) Patient Requires Transmission-Based No No Precautions Safety Precautions Fall Prevention Vital Signs Temperature (97.8 F-99.1 F) 97 F L 97.6 F L Temperature Source Temporal Temporal Pulse Rate (60-100) 84 79 Pulse Location Monitor Monitor Respiratory Rate (12-18) 18 18 Respiratory rate source Observation Observation Oxygen Delivery Method Room Air Blood Pressure (90/60-120/80) 148/75 H 128/76 H Blood Pressure Mean (mm Hg) 99 93 Source Monitor Monitor Position Semi-Fowlers Sitting Blood Pressure Location Left Arm Left Arm History Since Last Visit- (Skip if this is Patient's initial visit) Have you changed medications since your No No last visit? Any new allergies or adverse reactions No No Had a fall/change in ADL's that may No No increase risk of falls Signs or symptoms of abuse and/or No No neglect since last visit Have you been in the hospital since your No No last visit? Has dressing in place as prescribed Yes Yes Has compression in place as prescribed Yes N/A Has offloadiing in place as prescribed No N/A Experienced any changes in pain level or No No management Left Footwear Regular Shoe Right Footwear Regular Shoe Pain Scale: 0-10 Numeric Is Patient Pain Free? Yes Yes - Nurse 1 - General Ulcer Measurement Start: 02/24/25 09:50 Freq: Status: Active Protocol: Activity Type Activity Date Activity User E-sign Co-sign Detail Recorded Client Recorded Date Recorded By Document 02/24/25 09:50 RB [id number] 02/24/25 09:52 RB Document 03/03/25 10:37 DS [id number] 03/03/25 10:45 DS 02/24/25 03/03/25 09:50 10:37 Wound Center Nurse 1 #3 L Lateral Plantar Foot -Combined with other wound No -Current Size (cm) - Length 1.4 1.7 -Current Size (cm) - Width 1.4 1.8 -Current Size (cm) - Depth 0.5 0.1 -Total Square Cm 1.96 3.06 -Date of Last Picture (Recall this 03/03/25 field) -Photo Taken Yes Yes -Tunneling No -Undermining/Tunneling No No -Circular Undermining No No -Exudate Amt Medium Small -Exudate Type Serosanguineous Serosanguineous -Wound Margin Thickened Distinct, Outline Attached -Granulation Amt Medium (34-66%) Medium (34-66%) -Granulation Quality Joslin Joslin -Slough/Fibrin Yes Yes -Necrosis Amt Medium (34-66%) Medium (34-66%) -Necrotic Tissue Type Adherent Slough Adherent Slough -Structure Exposed N/A -Texture (Flory-wound Skin Appearance) Assessed,Callus Assessed -Moisture (Flory-wound Skin Appearance) Assessed Assessed, Maceration -Color (Flory-wound Skin Appearance) Assessed -Temperature (Flory-wound Skin No Abnormality No Abnormality Appearance) (Pt Warm) (Pt Warm) -Tenderness on Palpation (Flory-wound No Yes Skin Appearance) -Ulcer Cleansing Wound Cleanser Soap and Water -Foul Odor after Cleansing No No -Anesthetic Used 5% Lidocaine 5% Lidocaine Gel Gel WC - Nurse 2 - General Ulcer CM Notes Start: 02/24/25 09:50 Freq: Status: Active Protocol: Activity Type Activity Date Activity User E-sign Co-sign Detail Recorded Client Recorded Date Recorded By Document 02/24/25 10:28 GM [id number] 02/24/25 10:50 GM Document 03/03/25 11:27 GM [id number] 03/03/25 11:29 GM Edit Result 03/03/25 11:27 GM (1) [id number] 03/03/25 11:40 GM (1) #3 L Lateral Plantar Foot - Post Debridement (cm) - Length => 1.9 - Post Debridement (cm) - Width => 2.2 - Post Debridement (cm) - Depth => 0.2 - Total Square (Post) (cm) => 4.18 - Area of Debridement (cm) - Length => 1.9 - Area of Debridement (cm) - Width => 2.2 - Total Square (Area) (cm) => 4.18 - Tunneling => Yes - Tunneling Position (O'clock) => 6 - Tunneling Distance (cm) => 2.3 - Undermining/Tunneling => Yes - Undermining/Tunneling Starts (O'clock) => 12 - Undermining/Tunneling Ends (O'clock) => 7 - Maximum Distance (cm) => 1.3 - Circular Undermining => Yes 02/24/25 03/03/25 10:28 11:27 Wound Center Nurse 2 #3 L Lateral Plantar Foot -Time : 11:28 -Correct Patient Yes Yes -Correct Side, Site, Position Yes Yes -Correct Procedure Yes Yes -Procedure Performed Yes Yes -Type of Procedure Debridement Debridement -Clinical Debridement Subcutaneous Subcutaneous -Tissue Removed Subcutaneous Subcutaneous -Post Debridement (cm) - Length 2.3 1.9 -Post Debridement (cm) - Width 2.0 2.2 -Post Debridement (cm) - Depth 0.3 0.2 -Total Square (Post) (cm) 4.60 4.18 -Area of Debridement (cm) - Length 2.3 1.9 -Area of Debridement (cm) - Width 2.0 2.2 -Total Square (Area) (cm) 4.60 4.18 -Tunneling No Yes -Tunneling Position (O'clock) 6 -Tunneling Distance (cm) 2.3 -Undermining/Tunneling Yes Yes -Undermining/Tunneling Starts (O'clock 12 12 ) -Undermining/Tunneling Ends (O'clock) 12 7 -Maximum Distance (cm) 1.2 1.3 -Circular Undermining No Yes -Wound/Ulcer Outcome Not Healed Not Healed -Ulcer Cleansing Rinsed/ Irrigated with Saline -Foul Odor after Cleansing No No -Bioengineered Tissue No No -Bleeding Controlled with Pressure,Silver Pressure Nitrate ($) -Treatment Response Procedure Procedure Tolerated Well Tolerated Well -Offloading No No -Debridement - Subq, 1st 20sq cm Yes Yes Pain Scale: 0-10 Numeric Is Patient Pain Free? Yes Yes WC - Nurse 3 - General Ulcer D/C NN Start: 02/24/25 09:50 Freq: Status: Active Protocol: Activity Type Activity Date Activity User E-sign Co-sign Detail Recorded Client Recorded Date Recorded By Document 02/24/25 11:06 MARIA [id number] 02/24/25 11:06 Document 03/03/25 12:09 DS [id number] 03/03/25 12:23 DS 02/24/25 03/03/25 11:06 12:09 Wound Care Center Nurse 3 #3 L Lateral Plantar Foot -Ulcer Cleansing Rinsed/ Irrigated with Saline -Foul Odor after Cleansing No -Primary Dressing Applied Aquacel Extra Aquacel Extra -Primary Dressing Covered/Secured with Dry Gauze & Dry Gauze & Roll Gauze, Roll Gauze, Secured with Secured with Tape Tape -Aquacel Extra 1 1 -Wound Comment(s) Dr. Plummer in to do silver nitrate dt bleeding Pain Scale: 0-10 Numeric Is Patient Pain Free? Yes Yes WC - Visit Discharge Discharge Condition Stable Stable Ambulatory Status Ambulatory Ambulatory Transportation Private Auto Private Auto Accompanied by Medication Reconcilliation completed & Yes provided to patient/care provider Clinical Summary of Care Provided Yes Assessment/Plan Assessment/Plan (1) Delayed wound healing: CODE(S): T14.8XXD - Other injury of unspecified body region, subsequent encounter (2) Chronic ulcer of left foot with fat layer exposed: CODE(S): L97.522 - Non-pressure chronic ulcer of other part of left foot with fat layer exposed (3) HTN (hypertension): CODE(S): I10 - Essential (primary) hypertension QUALIFIERS: Hypertension type: primary hypertension Qualified Code(s): I10 - Essential (primary) hypertension (4) Diabetic ulcer of foot associated with diabetes mellitus due to underlying condition, with fat layer exposed: CODE(S): E08.621 - Diabetes mellitus due to underlying condition with foot ulcer; L97.502 - Non-pressure chronic ulcer of other part of unspecified foot with fat layer exposed QUALIFIERS: Diabetic foot ulcer location: midfoot Laterality: left Qualified Code(s): E08.621 - Diabetes mellitus due to underlying condition with foot ulcer; L97.422 - Non-pressure chronic ulcer of left heel and midfoot with fat layer exposed (5) Type 2 diabetes mellitus without complications: CODE(S): E11.9 - Type 2 diabetes mellitus without complications PLAN: Plan Debridement performed today in clinic as annotated above. It has significantly worsened since his last visit. I suspect noncompliance of offloading to be a major factor in his delayed healing. At home wound-care instructions: Wash ulcer daily with antibacterial soap and water. Will have him use Aquacel Extra to ulcer and cover with gauze and roll gauze to secure daily. Keep dressing clean and dry. Due to the undermining and worsening of his ulcer, it is medically necessary to employ the assistance of a wound vac in healing his ulcer. The goal of therapy would be to increase granulation to cover the tendon and eliminate the undermining of his ulcer. The wound vac would be set to 125 mm Hg and would be changed twice weekly. This is necessary to salvage his foot from amputation. Discussed possibly using TCC for offloading. We also discussed that there may be a single vessel narrowing that could be preventing healing and talked about possible referral to Vascular surgery to do CTA runoff. He declines at this time. Also discussed surgical procedure proposed by podiatry to shave exostosis of bone that is likely causing ulcer and he declines at this time. Off-loading: The patient was instructed to avoid pressure and friction on the affected areas. Reposition every 2 hours at minimum. Avoid prolonged standing and/or dangling of legs. When seated, feet should be elevated at chest level. Frequent ambulation is encouraged. Diet: Patient encouraged to increase protein intake while taking caution to avoid high carbohydrate and/or sugar intake. Labs/cultures/imaging: Wound culture positive 03/27/23 and is currently on Doxycycline. Wound culture showed Staph and Strep and he was treated with Keflex based on sensitivities and use topical Gentamicin for 3 weeks. Wound culture done 09/18/23 was positive for staph epidermidis. He has been on cephalexin and doxycycline. Wound culture was positive for Enterococcus and Linezolid completed. Wound culture was positive and he will continue Flagyl, Cipro and hold cefdinir and decrease doxycycline to once/day. His put him back on Keflex and doxycycline when his ulcer worsened over . Wound culture on 04/29/24 was positive for Staph epidermidis and he completed Linezolid and is back to taking chronic doxycyline and on Bactrim. Wound culture taken showed Corynebacterium and we discussed starting him on Augmentin but are hesitant to do this because of a PCN allergy that he reports as a child but he does not recall the reaction. Wound culture taken 02/24/25 due to worsening of ulcer and was positive for Staph capitus and he was started on Linezolid. XR of foot was negative. MRI negative for osteomyelitis and arterial testing negative for arterial insufficiency. Repeat XR of foot was negative. XR ordered again to r/o osteomyelitis and was negative 07/2024. Xray of left foot and 5th toe on 02/24/25 were negative for osteomyelitis and may need MRI for further evaluation. Follow-up: Return in 1 week for wound care follow up. Return sooner or report to the emergency room should symptoms worsen, or new symptoms arise. Note: [employer] speech recognition racebook writer software was used to create portions of this document. Sound-alike and misspelled words, as well as other racebook writer errors may be contained in the documentation.
--- NOTE | 2025-03-06 10:25 | WC ---
PHOTO-LEFT PLANTAR 03/03/25
[2025-03-10 09:34] VITALS: BP 118/71; PULSE 80; RESP 18; TEMP 35.8
--- NOTE | 2025-03-10 14:38 | PN.PCM_ITS ---
History of Present Illness Date of Service: 03/10/25 Chief Complaint: nonhealing wound left plantar foot History of Wound: Jose J is a 68 y/o gentleman that presents to the wound healing center for evaluation and treatment of a wound to his left plantar foot. He is a patient of Dr. Giordano. He has had a wound to this same area in February 2019 and was seen at [facility] and treated there for 9 weeks with Aquacel and was placed in a wedge shoe to offload his foot. He was treated for this same wound for almost a year at this wound center and was healed in May 2020 and returned in July and was treated until September 2020. He had undergone vascular testing at [facility] in 2018 and this has been repeated 09/2023 without significant arterial disease. 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 He and his did not want to do surgery. He has managed to do well from September 2020 until end of October 2022 when the area became painful again and began draining. He saw Dr. Giordano and was treated with doxycycline which helped and they had been applying Aquacel that they had from previous treatment but it has not improved. He was treated with a second course of doxycycline and then referred here for treatment. He is still working and walking on his foot in a steel toe boot 4 days a week for 10 hours. He had an offloading pad in his work boot previously but no longer has this in place. He denies claudication with walking. He has moderate to heavy drainage from the ulcer. He has not had any wound cultures taken. He was diagnosed with chronic leukemia in 2023 due to elevated WBC count but is not currently requiring any treatment except for monitoring. He denies fever, chill, nausea, vomiting, redness or odor. Subjective Subjective Jose J returns today for follow up of an ulcer on the bottom of his left foot. His ulcer and drainage are stable since last visit. He is tolerating dressings. Wound vac was unable to be obtained due to insurance issues. Hopefully this will be resolved this week. Culture was positive and he was started on antibiotic. He also had xray which was negative for osteomyelitis. He denies current fever, chills or odor. He had MRI on 10/02/23 which did not show any osteomyelitis of his foot. Arterial testing was also done and did not show any evidence of arterial insufficiency. HgbA1C was 6.3% on 07/2024. He was recently diagnosed with lung cancer - through follow up CT of nodules and + PET scan. Specifics of cancer are unknown until a biopsy is done. Objective Data Objective Data Vital Signs: Vital Signs Temp Pulse Resp BP O2 Del Method 96.5 F L 80 18 118/71 Room Air 03/10/25 09:34 03/10/25 09:34 03/10/25 09:34 03/10/25 09:34 03/10/25 09:34 Oxygen Delivery Method Room Air Lab / Micro Data Micro: Microbiology 02/24/25 10:44 Wound - Left Foot Gram Stain - Final 02/24/25 10:44 Wound - Left Foot Wound Culture - Final Corynebacterium striatum Staphylococcus epidermidis#2 Staphylococcus epidermidis 02/24/25 10:44 Wound - Left Foot Anaerobic Culture - Final No anaerobic bacteria isolated. Physical Exam Const alert, oriented x3 and no apparent distress General Appearance: cooperative and comfortable HEENT normocephalic and head/scalp atraumatic Resp normal respiratory effort Effort and Inspection: able to speak in complete sentences Auscultation: rales, rhonchi and diminished lung sounds Cardio regular rate and regular rhythm Skin Wounds: wounds noted Wound Narrative: as in clinical panel, exposure of capsule of tendon and significant undermining from 12 o clock to 6 o'clock, no cellulitis or odor Psych mental status grossly normal, thought process normal, cooperative and affect normal Debridement Note Debridement Note Wound debrided: left lateral plantar ulcer Laterality: Left Wound Grade/Stage: Luther grade 3 Type of Debridement: Excisional debridement Anesthesia Used: 5% Lidocaine Gel Depth: Down to and including healthy tissue and in the subcutaneous layer Percentage of wound debrided: 100 Instrument Used: #15 blade and Forceps Tissue Removed: Yellow slough, devitalized tissue Severity: Fat Layer Exposed Amount of bleeding with debridement: Moderate Bleeding Controlled with: Pressure and Silver Nitrate Patient tolerated procedure: Patient tolerated procedure well Post-Debridement Measurements and Additional Note: Post-Debridement Measurements/Treatment QUOC - Nurse 1 - General Ulcer Assessment Start: 02/24/25 09:50 Freq: Status: Active Protocol: KANIKA Activity Type Activity Date Activity User E-sign Co-sign Detail Recorded Client Recorded Date Recorded By Document 02/24/25 09:50 RB [id number] 02/24/25 09:52 RB Document 03/03/25 10:37 DS [id number] 03/03/25 10:45 DS Document 03/10/25 09:34 DS [id number] 03/10/25 09:44 DS 02/24/25 03/03/25 03/10/25 09:50 10:37 09:34 WC - Today's Visit Information Type of service Follow-up Visit Follow-up Visit (Physician/INTERSTATE BUS DRIVER (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/INTERSTATE BUS DRIVER ) ) Arrival Mode Ambulatory Ambulatory Transfer Assistance None Patient Identification Verified (Name & Yes Yes ) Patient Requires Transmission-Based No No Precautions Safety Precautions Fall Prevention Vital Signs Temperature (97.8 F-99.1 F) 97 F L 97.6 F L 96.5 F L Temperature Source Temporal Temporal Temporal Pulse Rate (60-100) 84 79 80 Pulse Location Monitor Monitor Monitor Respiratory Rate (12-18) 18 18 18 Respiratory rate source Observation Observation Observation Oxygen Delivery Method Room Air Room Air Blood Pressure (90/60-120/80) 148/75 H 128/76 H 118/71 Blood Pressure Mean (mm Hg) 99 93 86 Source Monitor Monitor Monitor Position Semi-Fowlers Sitting Sitting Blood Pressure Location Left Arm Left Arm Right Arm History Since Last Visit- (Skip if this is Patient's initial visit) Have you changed medications since your No No No last visit? Any new allergies or adverse reactions No No No Had a fall/change in ADL's that may No No No increase risk of falls Signs or symptoms of abuse and/or No No No neglect since last visit Have you been in the hospital since your No No No last visit? Has dressing in place as prescribed Yes Yes Yes Has compression in place as prescribed Yes N/A N/A Has offloadiing in place as prescribed No N/A N/A Experienced any changes in pain level or No No No management Left Footwear Regular Shoe Regular Shoe Right Footwear Regular Shoe Regular Shoe Pain Scale: 0-10 Numeric Is Patient Pain Free? Yes Yes Yes - Nurse 1 - General Ulcer Measurement Start: 02/24/25 09:50 Freq: Status: Active Protocol: Activity Type Activity Date Activity User E-sign Co-sign Detail Recorded Client Recorded Date Recorded By Document 10/03/25 09:50 RB [id number] 02/24/25 09:52 RB Document 03/03/25 10:37 DS [id number] 03/03/25 10:45 DS Document 03/10/25 09:34 DS [id number] 03/10/25 09:44 DS 02/24/25 03/03/25 03/10/25 09:50 10:37 09:34 Wound Center Nurse 1 #3 L Lateral Plantar Foot -Combined with other wound No -Current Size (cm) - Length 1.4 1.7 1.5 -Current Size (cm) - Width 1.4 1.8 2.0 -Current Size (cm) - Depth 0.5 0.1 0.1 -Total Square Cm 1.96 3.06 3.00 -Date of Last Picture (Recall this 03/03/25 03/10/25 field) -Photo Taken Yes Yes Yes -Tunneling No -Undermining/Tunneling No No Yes -Undermining/Tunneling Starts (O'clock 7 ) -Undermining/Tunneling Ends (O'clock) 8 -Maximum Distance (cm) 0.2 -Circular Undermining No No -Exudate Amt Medium Small Small -Exudate Type Serosanguineous Serosanguineous Serosanguineous -Wound Margin Thickened Distinct, Well Defined, Outline Not Attached Attached -Granulation Amt Medium (34-66%) Medium (34-66%) Medium (34-66%) -Granulation Quality [place] -Slough/Fibrin Yes Yes -Necrosis Amt Medium (34-66%) Medium (34-66%) Medium (34-66%) -Necrotic Tissue Type Adherent Slough Adherent Slough Adherent Slough -Structure Exposed N/A -Texture (Flory-wound Skin Appearance) Assessed,Callus Assessed Assessed -Moisture (Flory-wound Skin Appearance) Assessed Assessed, Assessed Maceration -Color (Flory-wound Skin Appearance) Assessed Assessed -Temperature (Flory-wound Skin No Abnormality No Abnormality No Abnormality Appearance) (Pt Warm) (Pt Warm) (Pt Warm) -Tenderness on Palpation (Flory-wound No Yes No Skin Appearance) -Ulcer Cleansing Wound Cleanser Soap and Water Soap and Water -Foul Odor after Cleansing No No No -Anesthetic Used 5% Lidocaine 5% Lidocaine 5% Lidocaine Gel Gel Gel WC - Nurse 2 - General Ulcer CM Notes Start: 02/24/25 09:50 Freq: Status: Active Protocol: Activity Type Activity Date Activity User E-sign Co-sign Detail Recorded Client Recorded Date Recorded By Document 02/24/25 10:28 GM [id number] 02/24/25 10:50 GM Document 03/03/25 11:27 GM [id number] 03/03/25 11:29 GM Edit Result 03/03/25 11:27 GM (1) [id number] 03/03/25 11:40 GM Document 03/10/25 10:15 GM [id number] 03/10/25 10:31 GM (1) #3 L Lateral Plantar Foot - Post Debridement (cm) - Length => 1.9 - Post Debridement (cm) - Width => 2.2 - Post Debridement (cm) - Depth => 0.2 - Total Square (Post) (cm) => 4.18 - Area of Debridement (cm) - Length => 1.9 - Area of Debridement (cm) - Width => 2.2 - Total Square (Area) (cm) => 4.18 - Tunneling => Yes - Tunneling Position (O'clock) => 6 - Tunneling Distance (cm) => 2.3 - Undermining/Tunneling => Yes - Undermining/Tunneling Starts (O'clock) => 12 - Undermining/Tunneling Ends (O'clock) => 7 - Maximum Distance (cm) => 1.3 - Circular Undermining => Yes 02/24/25 03/03/25 03/10/25 10:28 11:27 10:15 Wound Center Nurse 2 #3 L Lateral Plantar Foot -Time : 11:28 10:16 -Correct Patient Yes Yes Yes -Correct Side, Site, Position Yes Yes Yes -Correct Procedure Yes Yes Yes -Procedure Performed Yes Yes Yes -Type of Procedure Debridement Debridement Debridement -Clinical Debridement Subcutaneous Subcutaneous Subcutaneous -Tissue Removed Subcutaneous Subcutaneous Subcutaneous -Post Debridement (cm) - Length 2.3 1.9 1.9 -Post Debridement (cm) - Width 2.0 2.2 1.9 -Post Debridement (cm) - Depth 0.3 0.2 0.3 -Total Square (Post) (cm) 4.60 4.18 3.61 -Area of Debridement (cm) - Length 2.3 1.9 1.9 -Area of Debridement (cm) - Width 2.0 2.2 1.9 -Total Square (Area) (cm) 4.60 4.18 3.61 -Tunneling No Yes Yes -Tunneling Position (O'clock) 6 12 -Tunneling Distance (cm) 2.3 1.2 -Tunneling Position #2 (O'clock) 7 -Tunneling Distance #2 (cm) 2.2 -Undermining/Tunneling Yes Yes No -Undermining/Tunneling Starts (O'clock 12 12 ) -Undermining/Tunneling Ends (O'clock) 12 7 -Maximum Distance (cm) 1.2 1.3 -Circular Undermining No Yes No -Wound/Ulcer Outcome Not Healed Not Healed Not Healed -Ulcer Cleansing Rinsed/ Rinsed/ Irrigated with Irrigated with Saline Saline -Foul Odor after Cleansing No No No -Bioengineered Tissue No No No -Bleeding Controlled with Pressure,Silver Pressure Pressure Nitrate ($) -Treatment Response Procedure Procedure Procedure Tolerated Well Tolerated Well Tolerated Well -Offloading No No No -Debridement - Subq, 1st 20sq cm Yes Yes Yes Pain Scale: 0-10 Numeric Is Patient Pain Free? Yes Yes Yes WC - Nurse 3 - General Ulcer D/C NN Start: 02/24/25 09:50 Freq: Status: Active Protocol: Activity Type Activity Date Activity User E-sign Co-sign Detail Recorded Client Recorded Date Recorded By Document 02/24/25 11:06 JF [id number] 02/24/25 11:06 JF Document 03/03/25 12:09 DS [id number] 03/03/25 12:23 DS Document 03/10/25 11:25 RB [id number] 03/10/25 11:26 RB 02/24/25 03/03/25 03/10/25 11:06 12:09 11:25 Wound Care Center Nurse 3 #3 L Lateral Plantar Foot -Ulcer Cleansing Rinsed/ Rinsed/ Irrigated with Irrigated with Saline Saline -Foul Odor after Cleansing No -Primary Dressing Applied Aquacel Extra Aquacel Extra Aquacel Extra -Other Dressing aquacel extra packed into undermining -Primary Dressing Covered/Secured with Dry Gauze & Dry Gauze & Dry Gauze & Roll Gauze, Roll Gauze, Roll Gauze, Secured with Secured with Secured with Tape Tape Tape -Aquacel Extra 1 1 1 -Wound Comment(s) Dr. Plummer in to do silver nitrate dt bleeding Treatment Response Procedure Tolerated Well Pain Scale: 0-10 Numeric Is Patient Pain Free? Yes Yes Yes WC - Visit Discharge Discharge Condition Stable Stable Stable Ambulatory Status Ambulatory Ambulatory Ambulatory Transportation Private Auto Private Auto Private Auto Accompanied by Medication Reconcilliation completed & Yes No provided to patient/care provider Clinical Summary of Care Provided Yes Yes Assessment/Plan Assessment/Plan (1) Delayed wound healing: CODE(S): T14.8XXD - Other injury of unspecified body region, subsequent encounter (2) Chronic ulcer of left foot with fat layer exposed: CODE(S): L97.522 - Non-pressure chronic ulcer of other part of left foot with fat layer exposed (3) HTN (hypertension): CODE(S): I10 - Essential (primary) hypertension QUALIFIERS: Hypertension type: primary hypertension Qualified Code(s): I10 - Essential (primary) hypertension (4) Diabetic ulcer of foot associated with diabetes mellitus due to underlying condition, with fat layer exposed: CODE(S): E08.621 - Diabetes mellitus due to underlying condition with foot ulcer; L97.502 - Non-pressure chronic ulcer of other part of unspecified foot with fat layer exposed QUALIFIERS: Diabetic foot ulcer location: midfoot Laterality: left Qualified Code(s): E08.621 - Diabetes mellitus due to underlying condition with foot ulcer; L97.422 - Non-pressure chronic ulcer of left heel and midfoot with fat layer exposed (5) Type 2 diabetes mellitus without complications: CODE(S): E11.9 - Type 2 diabetes mellitus without complications PLAN: Plan Debridement performed today in clinic as annotated above. I suspect noncompliance of offloading to be a major factor in his delayed healing. At home wound-care instructions: Wash ulcer daily with antibacterial soap and water. Will have him use Aquacel Extra to ulcer and cover with gauze and roll gauze to secure daily. Keep dressing clean and dry. Due to the undermining and worsening of his ulcer, it is medically necessary to employ the assistance of a wound vac in healing his ulcer. The goal of therapy would be to increase granulation to cover the tendon and eliminate the undermining of his ulcer. The wound vac would be set to 125 mm Hg and would be changed twice weekly. This is necessary to salvage his foot from amputation. Discussed possibly using TCC for offloading. We also discussed that there may be a single vessel narrowing that could be preventing healing and talked about possible referral to Vascular surgery to do CTA runoff. He declines at this time. Also discussed surgical procedure proposed by podiatry to shave exostosis of bone that is likely causing ulcer and he declines at this time. Off-loading: The patient was instructed to avoid pressure and friction on the affected areas. Reposition every 2 hours at minimum. Avoid prolonged standing and/or dangling of legs. When seated, feet should be elevated at chest level. Frequent ambulation is encouraged. Diet: Patient encouraged to increase protein intake while taking caution to avoid high carbohydrate and/or sugar intake. Labs/cultures/imaging: Wound culture positive 03/27/23 and is currently on Doxycycline. Wound culture showed Staph and Strep and he was treated with Keflex based on sensitivities and use topical Gentamicin for 3 weeks. Wound culture done 09/18/23 was positive for staph epidermidis. He has been on cephalexin and doxycycline. Wound culture was positive for Enterococcus and Linezolid completed. Wound culture was positive and he will continue Flagyl, Cipro and hold cefdinir and decrease doxycycline to once/day. His put him back on Keflex and doxycycline when his ulcer worsened over . Wound culture on 04/29/24 was positive for Staph epidermidis and he completed Linezolid and is back to taking chronic doxycyline and on Bactrim. Wound culture taken showed Corynebacterium and we discussed starting him on Augmentin but are hesitant to do this because of a PCN allergy that he reports as a child but he does not recall the reaction. Wound culture taken 02/24/25 due to worsening of ulcer and was positive for Staph capitus and he was started on Linezolid. XR of foot was negative. MRI negative for osteomyelitis and arterial testing negative for arterial insufficiency. Repeat XR of foot was negative. XR ordered again to r/o osteomyelitis and was negative 07/2024. Xray of left foot and 5th toe on 02/24/25 were negative for osteomyelitis and may need MRI for further evaluation. Follow-up: Return in 1 week for wound care follow up. Return sooner or report to the emergency room should symptoms worsen, or new symptoms arise. Note: [employer] speech recognition superintendent meter tests software was used to create portions of this document. Sound-alike and misspelled words, as well as other superintendent meter tests errors may be contained in the documentation.
--- NOTE | 2025-03-14 08:59 | WC ---
PHOTO-LEFT PLANTAR 03/10/25
[2025-03-17 10:41] VITALS: BP 128/89; PULSE 91; RESP 18; TEMP 36.3
--- NOTE | 2025-03-17 12:27 | WC ---
PHOTO-LEFT PLANTAR 03/17/25
--- NOTE | 2025-03-17 14:18 | PCM.WC.PN ---
History of Present Illness Date of Service: 03/17/25 Chief Complaint: nonhealing wound left plantar foot History of Wound: Jose J is a 68 y/o gentleman that presents to the wound healing center for evaluation and treatment of a wound to his left plantar foot. He is a patient of Dr. Giordano. He has had a wound to this same area in February 2019 and was seen at [facility] and treated there for 9 weeks with Aquacel and was placed in a wedge shoe to offload his foot. He was treated for this same wound for almost a year at this wound center and was healed in May 2020 and returned in July and was treated until September 2020. He had undergone vascular testing at [facility] in 2018 and this has been repeated 09/2023 without significant arterial disease. 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 He and his did not want to do surgery. He has managed to do well from September 2020 until end of October 2022 when the area became painful again and began draining. He saw Dr. Giordano and was treated with doxycycline which helped and they had been applying Aquacel that they had from previous treatment but it has not improved. He was treated with a second course of doxycycline and then referred here for treatment. He is still working and walking on his foot in a steel toe boot 4 days a week for 10 hours. He had an offloading pad in his work boot previously but no longer has this in place. He denies claudication with walking. He has moderate to heavy drainage from the ulcer. He has not had any wound cultures taken. He was diagnosed with chronic leukemia in 2023 due to elevated WBC count but is not currently requiring any treatment except for monitoring. He denies fever, chill, nausea, vomiting, redness or odor. Subjective Subjective Jose J returns today for follow up of an ulcer on the bottom of his left foot. His ulcer and drainage are stable since last visit. He is tolerating dressings. Wound vac was unable to be obtained due to insurance issues. Hopefully this will be resolved this week. Culture was positive and he was started on antibiotic. He also had xray which was negative for osteomyelitis. He denies current fever, chills or odor. He had MRI on 10/02/23 which did not show any osteomyelitis of his foot. Arterial testing was also done and did not show any evidence of arterial insufficiency. HgbA1C was 6.3% on 07/2024. He was recently diagnosed with lung cancer - through follow up CT of nodules and + PET scan. Specifics of cancer are unknown until a biopsy is done. Objective Data Objective Data Vital Signs: Vital Signs Temp Pulse Resp BP O2 Del Method 97.3 F L 91 18 128/89 H Room Air 03/17/25 10:41 03/17/25 10:41 03/17/25 10:41 03/17/25 10:41 03/10/25 09:34 Oxygen Delivery Method Room Air Lab / Micro Data Micro: Microbiology 02/24/25 10:44 Wound - Left Foot Gram Stain - Final 02/24/25 10:44 Wound - Left Foot Wound Culture - Final Corynebacterium striatum Staphylococcus epidermidis#2 Staphylococcus epidermidis 02/24/25 10:44 Wound - Left Foot Anaerobic Culture - Final No anaerobic bacteria isolated. Physical Exam Const alert, oriented x3 and no apparent distress General Appearance: cooperative and comfortable HEENT normocephalic and head/scalp atraumatic Resp normal respiratory effort Effort and Inspection: able to speak in complete sentences Auscultation: rales, rhonchi and diminished lung sounds Cardio regular rate and regular rhythm Skin Wounds: wounds noted Wound Narrative: as in clinical panel, exposure of capsule of tendon and significant undermining from 12 o clock to 7 o'clock, no cellulitis or odor Psych mental status grossly normal, thought process normal, cooperative and affect normal Debridement Note Debridement Note Wound debrided: left lateral plantar ulcer Laterality: Left Wound Grade/Stage: Luther grade 3 Type of Debridement: Excisional debridement Anesthesia Used: 5% Lidocaine Gel Depth: Down to and including healthy tissue and in the subcutaneous layer Percentage of wound debrided: 100 Instrument Used: 5mm curette Tissue Removed: Yellow slough, devitalized tissue Severity: Fat Layer Exposed Amount of bleeding with debridement: Mild Bleeding Controlled with: Pressure Patient tolerated procedure: Patient tolerated procedure well Post-Debridement Measurements and Additional Note: Post-Debridement Measurements/Treatment QUOC - Nurse 1 - General Ulcer Assessment Start: 02/24/25 09:50 Freq: Status: Active Protocol: KANIKA Activity Type Activity Date Activity User E-sign Co-sign Detail Recorded Client Recorded Date Recorded By Document 02/24/25 09:50 RB [id number] 02/24/25 09:52 RB Document 03/03/25 10:37 DS [id number] 03/03/25 10:45 DS Document 03/10/25 09:34 DS [id number] 03/10/25 09:44 DS Document 03/17/25 10:41 TS [id number] 03/17/25 10:49 TS 02/24/25 03/03/25 03/10/25 09:50 10:37 09:34 WC - Today's Visit Information Type of service Follow-up Visit Follow-up Visit (Physician/ELECTRICAL DEVELOPMENT ENGINEER (Physician/ELECTRICAL DEVELOPMENT ENGINEER ) ) Arrival Mode Ambulatory Ambulatory Transfer Assistance None Patient Identification Verified (Name & Yes Yes ) Patient Requires Transmission-Based No No Precautions Safety Precautions Fall Prevention Vital Signs Temperature (97.8 F-99.1 F) 97 F L 97.6 F L 96.5 F L Temperature Source Temporal Temporal Temporal Pulse Rate (60-100) 84 79 80 Pulse Location Monitor Monitor Monitor Respiratory Rate (12-18) 18 18 18 Respiratory rate source Observation Observation Observation Oxygen Delivery Method Room Air Room Air Blood Pressure (90/60-120/80) 148/75 H 128/76 H 118/71 Blood Pressure Mean (mm Hg) 99 93 86 Source Monitor Monitor Monitor Position Semi-Fowlers Sitting Sitting Blood Pressure Location Left Arm Left Arm Right Arm History Since Last Visit- (Skip if this is Patient's initial visit) Have you changed medications since your No No No last visit? Any new allergies or adverse reactions No No No Had a fall/change in ADL's that may No No No increase risk of falls Signs or symptoms of abuse and/or No No No neglect since last visit Have you been in the hospital since your No No No last visit? Has dressing in place as prescribed Yes Yes Yes Has compression in place as prescribed Yes N/A N/A Has offloadiing in place as prescribed No N/A N/A Experienced any changes in pain level or No No No management Left Footwear Regular Shoe Regular Shoe Right Footwear Regular Shoe Regular Shoe Pain Scale: 0-10 Numeric Is Patient Pain Free? Yes Yes Yes L foot -Description -Intensity -Duration (hours) -Pain Behavior -Pain Aggravating Factors -Alleviating Factors/Interventions -Effectiveness of Alleviating Factor/ Intervention 03/17/25 10:41 WC - Today's Visit Information Type of service Follow-up Visit (Physician/ELECTRICAL DEVELOPMENT ENGINEER ) Arrival Mode Ambulatory Transfer Assistance None Patient Identification Verified (Name & Yes ) Patient Requires Transmission-Based No Precautions Safety Precautions Vital Signs Temperature (97.8 F-99.1 F) 97.3 F L Temperature Source Temporal Pulse Rate (60-100) 91 Pulse Location Monitor Respiratory Rate (12-18) 18 Respiratory rate source Observation Oxygen Delivery Method Blood Pressure (90/60-120/80) 128/89 H Blood Pressure Mean (mm Hg) 102 Source Monitor Position Semi-Fowlers Blood Pressure Location Left Arm History Since Last Visit- (Skip if this is Patient's initial visit) Have you changed medications since your No last visit? Any new allergies or adverse reactions No Had a fall/change in ADL's that may No increase risk of falls Signs or symptoms of abuse and/or No neglect since last visit Have you been in the hospital since your No last visit? Has dressing in place as prescribed Yes Has compression in place as prescribed N/A Has offloadiing in place as prescribed No Experienced any changes in pain level or No management Left Footwear Slipper Right Footwear Regular Shoe Pain Scale: 0-10 Numeric Is Patient Pain Free? No L foot -Description Aching -Intensity 2 -Duration (hours) Acute -Pain Behavior Irritability -Pain Aggravating Factors ADL's -Alleviating Factors/Interventions Medication -Effectiveness of Alleviating Factor/ Minimally Intervention effective WC - Nurse 1 - General Ulcer Measurement Start: 02/24/25 09:50 Freq: Status: Active Protocol: Activity Type Activity Date Activity User E-sign Co-sign Detail Recorded Client Recorded Date Recorded By Document 02/24/25 09:50 RB [id number] 02/24/25 09:52 RB Document 03/03/25 10:37 DS [id number] 03/03/25 10:45 DS Document 03/10/25 09:34 DS [id number] 03/10/25 09:44 DS Document 03/17/25 10:41 TS [id number] 03/17/25 10:49 TS 02/24/25 03/03/25 03/10/25 09:50 10:37 09:34 Wound Center Nurse 1 #3 L Lateral Plantar Foot -Combined with other wound No -Current Size (cm) - Length 1.4 1.7 1.5 -Current Size (cm) - Width 1.4 1.8 2.0 -Current Size (cm) - Depth 0.5 0.1 0.1 -Total Square Cm 1.96 3.06 3.00 -Date of Last Picture (Recall this 03/03/25 03/10/25 field) -Photo Taken Yes Yes Yes -Tunneling No -Undermining/Tunneling No No Yes -Undermining/Tunneling Starts (O'clock 7 ) -Undermining/Tunneling Ends (O'clock) 8 -Maximum Distance (cm) 0.2 -Undermining/Tunneling Starts #2 (O' clock) -Undermining/Tunneling Ends #2 (O' clock) -Maximum Distance #2 (cm) -Circular Undermining No No -Exudate Amt Medium Small Small -Exudate Type Serosanguineous Serosanguineous Serosanguineous -Wound Margin Thickened Distinct, Well Defined, Outline Not Attached Attached -Granulation Amt Medium (34-66%) Medium (34-66%) Medium (34-66%) -Granulation Quality [place] -Slough/Fibrin Yes Yes -Necrosis Amt Medium (34-66%) Medium (34-66%) Medium (34-66%) -Necrotic Tissue Type Adherent Slough Adherent Slough Adherent Slough -Structure Exposed N/A -Texture (Flory-wound Skin Appearance) Assessed,Callus Assessed Assessed -Moisture (Flory-wound Skin Appearance) Assessed Assessed, Assessed Maceration -Color (Flory-wound Skin Appearance) Assessed Assessed -Temperature (Flory-wound Skin No Abnormality No Abnormality No Abnormality Appearance) (Pt Warm) (Pt Warm) (Pt Warm) -Tenderness on Palpation (Flory-wound No Yes No Skin Appearance) -Ulcer Cleansing Wound Cleanser Soap and Water Soap and Water -Foul Odor after Cleansing No No No -Anesthetic Used 5% Lidocaine 5% Lidocaine 5% Lidocaine Gel Gel Gel 03/17/25 10:41 Wound Center Nurse 1 #3 L Lateral Plantar Foot -Combined with other wound No -Current Size (cm) - Length 1.7 -Current Size (cm) - Width 1.8 -Current Size (cm) - Depth 0.2 -Total Square Cm 3.06 -Date of Last Picture (Recall this field) -Photo Taken Yes -Tunneling No -Undermining/Tunneling Yes -Undermining/Tunneling Starts (O'clock 11 ) -Undermining/Tunneling Ends (O'clock) 1 -Maximum Distance (cm) 0.5 -Undermining/Tunneling Starts #2 (O' 5 clock) -Undermining/Tunneling Ends #2 (O' 6 clock) -Maximum Distance #2 (cm) 0.5 -Circular Undermining No -Exudate Amt Large -Exudate Type Serosanguineous -Wound Margin Thickened -Granulation Amt Medium (34-66%) -Granulation Quality [place] -Slough/Fibrin Yes -Necrosis Amt Medium (34-66%) -Necrotic Tissue Type Adherent Slough -Structure Exposed N/A -Texture (Flory-wound Skin Appearance) Callus -Moisture (Flory-wound Skin Appearance) Assessed -Color (Flory-wound Skin Appearance) Assessed -Temperature (Flory-wound Skin No Abnormality Appearance) (Pt Warm) -Tenderness on Palpation (Flory-wound No Skin Appearance) -Ulcer Cleansing Wound Cleanser -Foul Odor after Cleansing No -Anesthetic Used 5% Lidocaine Gel WC - Nurse 2 - General Ulcer CM Notes Start: 02/24/25 09:50 Freq: Status: Active Protocol: Activity Type Activity Date Activity User E-sign Co-sign Detail Recorded Client Recorded Date Recorded By Document 02/24/25 10:28 GM [id number] 02/24/25 10:50 GM Document 03/03/25 11:27 [id number] 03/03/25 11:29 GM Edit Result 03/03/25 11:27 GM (1) [id number] 03/03/25 11:40 GM Document 03/10/25 10:15 GM [id number] 03/10/25 10:31 GM Document 03/17/25 11:19 GM [id number] 03/17/25 11:28 GM (1) #3 L Lateral Plantar Foot - Post Debridement (cm) - Length => 1.9 - Post Debridement (cm) - Width => 2.2 - Post Debridement (cm) - Depth => 0.2 - Total Square (Post) (cm) => 4.18 - Area of Debridement (cm) - Length => 1.9 - Area of Debridement (cm) - Width => 2.2 - Total Square (Area) (cm) => 4.18 - Tunneling => Yes - Tunneling Position (O'clock) => 6 - Tunneling Distance (cm) => 2.3 - Undermining/Tunneling => Yes - Undermining/Tunneling Starts (O'clock) => 12 - Undermining/Tunneling Ends (O'clock) => 7 - Maximum Distance (cm) => 1.3 - Circular Undermining => Yes 02/24/25 03/03/25 03/10/25 10:28 11:27 10:15 Wound Center Nurse 2 #3 L Lateral Plantar Foot -Time : 11:28 10:16 -Correct Patient Yes Yes Yes -Correct Side, Site, Position Yes Yes Yes -Correct Procedure Yes Yes Yes -Procedure Performed Yes Yes Yes -Type of Procedure Debridement Debridement Debridement -Clinical Debridement Subcutaneous Subcutaneous Subcutaneous -Tissue Removed Subcutaneous Subcutaneous Subcutaneous -Post Debridement (cm) - Length 2.3 1.9 1.9 -Post Debridement (cm) - Width 2.0 2.2 1.9 -Post Debridement (cm) - Depth 0.3 0.2 0.3 -Total Square (Post) (cm) 4.60 4.18 3.61 -Area of Debridement (cm) - Length 2.3 1.9 1.9 -Area of Debridement (cm) - Width 2.0 2.2 1.9 -Total Square (Area) (cm) 4.60 4.18 3.61 -Tunneling No Yes Yes -Tunneling Position (O'clock) 6 12 -Tunneling Distance (cm) 2.3 1.2 -Tunneling Position #2 (O'clock) 7 -Tunneling Distance #2 (cm) 2.2 -Undermining/Tunneling Yes Yes No -Undermining/Tunneling Starts (O'clock 12 12 ) -Undermining/Tunneling Ends (O'clock) 12 7 -Maximum Distance (cm) 1.2 1.3 -Circular Undermining No Yes No -Wound/Ulcer Outcome Not Healed Not Healed Not Healed -Ulcer Cleansing Rinsed/ Rinsed/ Irrigated with Irrigated with Saline Saline -Foul Odor after Cleansing No No No -Bioengineered Tissue No No No -Bleeding Controlled with Pressure,Silver Pressure Pressure Nitrate ($) -Treatment Response Procedure Procedure Procedure Tolerated Well Tolerated Well Tolerated Well -Offloading No No No -Debridement - Subq, 1st 20sq cm Yes Yes Yes Pain Scale: 0-10 Numeric Is Patient Pain Free? Yes Yes Yes 03/17/25 11:19 Wound Center Nurse 2 #3 L Lateral Plantar Foot -Time 11:19 -Correct Patient Yes -Correct Side, Site, Position Yes -Correct Procedure Yes -Procedure Performed Yes -Type of Procedure Debridement -Clinical Debridement Subcutaneous -Tissue Removed Subcutaneous -Post Debridement (cm) - Length 2.0 -Post Debridement (cm) - Width 2.0 -Post Debridement (cm) - Depth 0.4 -Total Square (Post) (cm) 4.00 -Area of Debridement (cm) - Length 2.0 -Area of Debridement (cm) - Width 2.0 -Total Square (Area) (cm) 4.00 -Tunneling Yes -Tunneling Position (O'clock) 7 -Tunneling Distance (cm) 2.3 -Tunneling Position #2 (O'clock) 12 -Tunneling Distance #2 (cm) 1.2 -Undermining/Tunneling No -Undermining/Tunneling Starts (O'clock ) -Undermining/Tunneling Ends (O'clock) -Maximum Distance (cm) -Circular Undermining No -Wound/Ulcer Outcome Not Healed -Ulcer Cleansing Rinsed/ Irrigated with Saline -Foul Odor after Cleansing No -Bioengineered Tissue No -Bleeding Controlled with Pressure -Treatment Response Procedure Tolerated Well -Offloading No -Debridement - Subq, 1st 20sq cm Yes Pain Scale: 0-10 Numeric Is Patient Pain Free? Yes - Nurse 3 - General Ulcer D/C NN Start: 02/24/25 09:50 Freq: Status: Active Protocol: Activity Type Activity Date Activity User E-sign Co-sign Detail Recorded Client Recorded Date Recorded By Document 02/24/25 11:06 JF [id number] 02/24/25 11:06 JF Document 03/03/25 12:09 DS [id number] 03/03/25 12:23 DS Document 03/10/25 11:25 RB [id number] 03/10/25 11:26 RB Document 03/17/25 11:56 TS [id number] 03/17/25 12:10 TS 02/24/25 03/03/25 03/10/25 11:06 12:09 11:25 Wound Care Center Nurse 3 #3 L Lateral Plantar Foot -Ulcer Cleansing Rinsed/ Rinsed/ Irrigated with Irrigated with Saline Saline -Foul Odor after Cleansing No -Primary Dressing Applied Aquacel Extra Aquacel Extra Aquacel Extra -Other Dressing aquacel extra packed into undermining -Primary Dressing Covered/Secured with Dry Gauze & Dry Gauze & Dry Gauze & Roll Gauze, Roll Gauze, Roll Gauze, Secured with Secured with Secured with Tape Tape Tape -Aquacel Extra 1 1 1 -Wound Comment(s) Dr. Plummer in to do silver nitrate dt bleeding Treatment Response Procedure Tolerated Well Pain Scale: 0-10 Numeric Is Patient Pain Free? Yes Yes Yes WC - Visit Discharge Discharge Condition Stable Stable Stable Ambulatory Status Ambulatory Ambulatory Ambulatory Transportation Private Auto Private Auto Private Auto Accompanied by Medication Reconcilliation completed & Yes No provided to patient/care provider Clinical Summary of Care Provided Yes Yes 03/17/25 11:56 Wound Care Center Nurse 3 #3 L Lateral Plantar Foot -Ulcer Cleansing -Foul Odor after Cleansing -Primary Dressing Applied Aquacel Extra -Other Dressing -Primary Dressing Covered/Secured with Dry Gauze & Roll Gauze, Secured with Tape -Aquacel Extra 1 -Wound Comment(s) Treatment Response Pain Scale: 0-10 Numeric Is Patient Pain Free? Yes WC - Visit Discharge Discharge Condition Stable Ambulatory Status Ambulatory Transportation Private Auto Accompanied by Medication Reconcilliation completed & No provided to patient/care provider Clinical Summary of Care Provided Yes Assessment/Plan Assessment/Plan (1) Delayed wound healing: CODE(S): T14.8XXD - Other injury of unspecified body region, subsequent encounter (2) Chronic ulcer of left foot with fat layer exposed: CODE(S): L97.522 - Non-pressure chronic ulcer of other part of left foot with fat layer exposed (3) HTN (hypertension): CODE(S): I10 - Essential (primary) hypertension QUALIFIERS: Hypertension type: primary hypertension Qualified Code(s): I10 - Essential (primary) hypertension (4) Diabetic ulcer of foot associated with diabetes mellitus due to underlying condition, with fat layer exposed: CODE(S): E08.621 - Diabetes mellitus due to underlying condition with foot ulcer; L97.502 - Non-pressure chronic ulcer of other part of unspecified foot with fat layer exposed QUALIFIERS: Diabetic foot ulcer location: midfoot Laterality: left Qualified Code(s): E08.621 - Diabetes mellitus due to underlying condition with foot ulcer; L97.422 - Non-pressure chronic ulcer of left heel and midfoot with fat layer exposed (5) Type 2 diabetes mellitus without complications: CODE(S): E11.9 - Type 2 diabetes mellitus without complications PLAN: Plan Debridement performed today in clinic as annotated above. I suspect noncompliance of offloading to be a major factor in his delayed healing. At home wound-care instructions: Wash ulcer daily with antibacterial soap and water. Will have him use Aquacel Extra to ulcer and cover with gauze and roll gauze to secure daily. Keep dressing clean and dry. Due to the undermining and worsening of his ulcer, it is medically necessary to employ the assistance of a wound vac in healing his ulcer. The goal of therapy would be to increase granulation to cover the tendon and eliminate the undermining of his ulcer. The wound vac would be set to 125 mm Hg and would be changed twice weekly. This is necessary to salvage his foot from amputation. Discussed possibly using TCC for offloading. We also discussed that there may be a single vessel narrowing that could be preventing healing and talked about possible referral to Vascular surgery to do CTA runoff. He declines at this time. Also discussed surgical procedure proposed by podiatry to shave exostosis of bone that is likely causing ulcer and he declines at this time. Off-loading: The patient was instructed to avoid pressure and friction on the affected areas. Reposition every 2 hours at minimum. Avoid prolonged standing and/or dangling of legs. When seated, feet should be elevated at chest level. Frequent ambulation is encouraged. Diet: Patient encouraged to increase protein intake while taking caution to avoid high carbohydrate and/or sugar intake. Labs/cultures/imaging: Wound culture positive 03/27/23 and is currently on Doxycycline. Wound culture showed Staph and Strep and he was treated with Keflex based on sensitivities and use topical Gentamicin for 3 weeks. Wound culture done 09/18/23 was positive for staph epidermidis. He has been on cephalexin and doxycycline. Wound culture was positive for Enterococcus and Linezolid completed. Wound culture was positive and he will continue Flagyl, Cipro and hold cefdinir and decrease doxycycline to once/day. His put him back on Keflex and doxycycline when his ulcer worsened over . Wound culture on 04/29/24 was positive for Staph epidermidis and he completed Linezolid and is back to taking chronic doxycyline and on Bactrim. Wound culture taken showed Corynebacterium and we discussed starting him on Augmentin but are hesitant to do this because of a PCN allergy that he reports as a child but he does not recall the reaction. Wound culture taken 02/24/25 due to worsening of ulcer and was positive for Staph capitus and he was started on Linezolid. XR of foot was negative. MRI negative for osteomyelitis and arterial testing negative for arterial insufficiency. Repeat XR of foot was negative. XR ordered again to r/o osteomyelitis and was negative 07/2024. Xray of left foot and 5th toe on 02/24/25 were negative for osteomyelitis and may need MRI for further evaluation. Follow-up: Return in 1 week for wound care follow up. Return sooner or report to the emergency room should symptoms worsen, or new symptoms arise. Note: [employer] speech recognition java support engineer software was used to create portions of this document. Sound-alike and misspelled words, as well as other java support engineer errors may be contained in the documentation.
[2025-03-24 10:05] VITALS: BP 114/66; PULSE 82; RESP 16; TEMP 36.7
--- NOTE | 2025-03-24 13:58 | PCM.WC.PN ---
History of Present Illness Date of Service: 03/24/25 Chief Complaint: nonhealing wound left plantar foot History of Wound: Jose J is a 69 y/o gentleman that presents to the wound healing center for evaluation and treatment of a wound to his left plantar foot. He is a patient of Dr. Giordano. He has had a wound to this same area in February 2019 [address] seen at [facility] and treated there for 9 weeks with Aquacel and was placed in a wedge shoe to offload his foot. He was treated for this same wound for almost a year at this wound center and was healed in May 2020 and returned in July and was treated until September 2020. He had undergone vascular testing at [facility] in 2018 and this has been repeated 09/2023 without significant arterial disease. 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 He and his did not want to do surgery. He has managed to do well from September 2020 until end of October 2022 when the area became painful again and began draining. He saw Dr. Giordano and was treated with doxycycline which helped and they had been applying Aquacel that they had from previous treatment but it has not improved. He was treated with a second course of doxycycline and then referred here for treatment. He is still working and walking on his foot in a steel toe boot 4 days a week for 10 hours. He had an offloading pad in his work boot previously but no longer has this in place. He denies claudication with walking. He has moderate to heavy drainage from the ulcer. He has not had any wound cultures taken. He was diagnosed with chronic leukemia in 2023 due to elevated WBC count but is not currently requiring any treatment except for monitoring. He denies fever, chill, nausea, vomiting, redness or odor. Subjective Subjective Jose J returns today for follow up of an ulcer on the bottom of his left foot. His ulcer and drainage are stable (moderate) since last visit. He is tolerating dressings. Wound vac was unable to be obtained due to insurance issues. Hopefully this will be resolved this week. Culture was positive and he was started on antibiotic. He also had xray which was negative for osteomyelitis. He denies current fever, chills or odor. He had MRI on 10/02/23 which did not show any osteomyelitis of his foot. Arterial testing was also done and did not show any evidence of arterial insufficiency. HgbA1C was 6.3% on 07/2024. He was recently diagnosed with lung cancer - through follow up CT of nodules and + PET scan. Specifics of cancer are unknown until a biopsy is done. Objective Data Objective Data Vital Signs: Vital Signs Temp Pulse Resp BP O2 Del Method 98.0 F 82 16 114/66 Room Air 03/24/25 10:05 03/24/25 10:05 03/24/25 10:05 03/24/25 10:05 03/24/25 10:05 Oxygen Delivery Method Room Air Lab / Micro Data Micro: Microbiology 02/24/25 10:44 Wound - Left Foot Gram Stain - Final 02/24/25 10:44 Wound - Left Foot Wound Culture - Final Corynebacterium striatum Staphylococcus epidermidis#2 Staphylococcus epidermidis 02/24/25 10:44 Wound - Left Foot Anaerobic Culture - Final No anaerobic bacteria isolated. Physical Exam Const alert, oriented x3 and no apparent distress General Appearance: cooperative and comfortable HEENT normocephalic and head/scalp atraumatic Resp normal respiratory effort Effort and Inspection: able to speak in complete sentences Auscultation: rales, rhonchi and diminished lung sounds Cardio regular rate and regular rhythm Skin Wounds: wounds noted Wound Narrative: as in clinical panel, exposure of capsule of tendon and significant undermining from 12 o clock to 7 o'clock, no cellulitis or odor Psych mental status grossly normal, thought process normal, cooperative and affect normal Debridement Note Debridement Note Wound debrided: left lateral plantar ulcer Laterality: Left Wound Grade/Stage: Luther grade 3 Type of Debridement: Excisional debridement Anesthesia Used: 5% Lidocaine Gel Depth: Down to and including healthy tissue and in the subcutaneous layer Percentage of wound debrided: 100 Instrument Used: 5mm curette Tissue Removed: Yellow slough, devitalized tissue Severity: Fat Layer Exposed Amount of bleeding with debridement: Mild Bleeding Controlled with: Pressure Patient tolerated procedure: Patient tolerated procedure well Post-Debridement Measurements and Additional Note: Post-Debridement Measurements/Treatment QUOC - Nurse 1 - General Ulcer Assessment Start: 02/24/25 09:50 Freq: Status: Active Protocol: KANIKA Activity Type Activity Date Activity User E-sign Co-sign Detail Recorded Client Recorded Date Recorded By Document 02/24/25 09:50 RB [id number] 02/24/25 09:52 RB Document 03/03/25 10:37 DS [id number] 03/03/25 10:45 DS Document 03/10/25 09:34 DS [id number] 03/10/25 09:44 DS Document 03/17/25 10:41 TS [id number] 03/17/25 10:49 TS Document 03/24/25 10:05 TS [id number] 03/24/25 11:01 TS 02/24/25 03/03/25 03/10/25 09:50 10:37 09:34 WC - Today's Visit Information Type of service Follow-up Visit Follow-up Visit (Physician/SOCIAL PROBLEMS SPECIALIST (Physician/SOCIAL PROBLEMS SPECIALIST ) ) Arrival Mode Ambulatory Ambulatory Transfer Assistance None Patient Identification Verified (Name & Yes Yes ) Patient Requires Transmission-Based No No Precautions Safety Precautions Fall Prevention Vital Signs Temperature (97.8 F-99.1 F) 97 F L 97.6 F L 96.5 F L Temperature Source Temporal Temporal Temporal Pulse Rate (60-100) 84 79 80 Pulse Location Monitor Monitor Monitor Respiratory Rate (12-18) 18 18 18 Respiratory rate source Observation Observation Observation Oxygen Delivery Method Room Air Room Air Blood Pressure (90/60-120/80) 148/75 H 128/76 H 118/71 Blood Pressure Mean (mm Hg) 99 93 86 Source Monitor Monitor Monitor Position Semi-Fowlers Sitting Sitting Blood Pressure Location Left Arm Left Arm Right Arm History Since Last Visit- (Skip if this is Patient's initial visit) Have you changed medications since your No No No last visit? Any new allergies or adverse reactions No No No Had a fall/change in ADL's that may No No No increase risk of falls Signs or symptoms of abuse and/or No No No neglect since last visit Have you been in the hospital since your No No No last visit? Has dressing in place as prescribed Yes Yes Yes Has compression in place as prescribed Yes N/A N/A Has offloadiing in place as prescribed No N/A N/A Experienced any changes in pain level or No No No management Left Footwear Regular Shoe Regular Shoe Right Footwear Regular Shoe Regular Shoe Pain Scale: 0-10 Numeric Is Patient Pain Free? Yes Yes Yes L foot -Description -Intensity -Duration (hours) -Pain Behavior -Pain Aggravating Factors -Alleviating Factors/Interventions -Effectiveness of Alleviating Factor/ Intervention 03/17/25 03/24/25 10:41 10:05 WC - Today's Visit Information Type of service Follow-up Visit Follow-up Visit (Physician/SOCIAL PROBLEMS SPECIALIST (Physician/SOCIAL PROBLEMS SPECIALIST ) ) Arrival Mode Ambulatory Ambulatory Transfer Assistance None Patient Identification Verified (Name & Yes Yes ) Patient Requires Transmission-Based No No Precautions Safety Precautions Fall Prevention Vital Signs Temperature (97.8 F-99.1 F) 97.3 F L 98.0 F Temperature Source Temporal Temporal Pulse Rate (60-100) 91 82 Pulse Location Monitor Respiratory Rate (12-18) 18 16 Respiratory rate source Observation Observation Oxygen Delivery Method Room Air Blood Pressure (90/60-120/80) 128/89 H 114/66 Blood Pressure Mean (mm Hg) 102 82 Source Monitor Monitor Position Semi-Fowlers Blood Pressure Location Left Arm Left Arm History Since Last Visit- (Skip if this is Patient's initial visit) Have you changed medications since your No No last visit? Any new allergies or adverse reactions No No Had a fall/change in ADL's that may No No increase risk of falls Signs or symptoms of abuse and/or No No neglect since last visit Have you been in the hospital since your No No last visit? Has dressing in place as prescribed Yes Yes Has compression in place as prescribed N/A N/A Has offloadiing in place as prescribed No N/A Experienced any changes in pain level or No No management Left Footwear Slipper Regular Shoe Right Footwear Regular Shoe Regular Shoe Pain Scale: 0-10 Numeric Is Patient Pain Free? No Yes L foot -Description Aching -Intensity 2 -Duration (hours) Acute -Pain Behavior Irritability -Pain Aggravating Factors ADL's -Alleviating Factors/Interventions Medication -Effectiveness of Alleviating Factor/ Minimally Intervention effective WC - Nurse 1 - General Ulcer Measurement Start: 02/24/25 09:50 Freq: Status: Active Protocol: Activity Type Activity Date Activity User E-sign Co-sign Detail Recorded Client Recorded Date Recorded By Document 02/24/25 09:50 RB [id number] 02/24/25 09:52 RB Document 03/03/25 10:37 DS [id number] 03/03/25 10:45 DS Document 03/10/25 09:34 DS [id number] 03/10/25 09:44 DS Document 03/17/25 10:41 TS [id number] 03/17/25 10:49 TS Document 03/24/25 10:05 TS [id number] 03/24/25 11:01 TS 02/24/25 03/03/25 03/10/25 09:50 10:37 09:34 Wound Center Nurse 1 #3 L Lateral Plantar Foot -Combined with other wound No -Current Size (cm) - Length 1.4 1.7 1.5 -Current Size (cm) - Width 1.4 1.8 2.0 -Current Size (cm) - Depth 0.5 0.1 0.1 -Total Square Cm 1.96 3.06 3.00 -Date of Last Picture (Recall this 03/03/25 03/10/25 field) -Photo Taken Yes Yes Yes -Epithelialization -Tunneling No -Undermining/Tunneling No No Yes -Undermining/Tunneling Starts (O'clock 7 ) -Undermining/Tunneling Ends (O'clock) 8 -Maximum Distance (cm) 0.2 -Undermining/Tunneling Starts #2 (O' clock) -Undermining/Tunneling Ends #2 (O' clock) -Maximum Distance #2 (cm) -Circular Undermining No No -Exudate Amt Medium Small Small -Exudate Type Serosanguineous Serosanguineous Serosanguineous -Wound Margin Thickened Distinct, Well Defined, Outline Not Attached Attached -Granulation Amt Medium (34-66%) Medium (34-66%) Medium (34-66%) -Granulation Quality [place] -Slough/Fibrin Yes Yes -Necrosis Amt Medium (34-66%) Medium (34-66%) Medium (34-66%) -Necrotic Tissue Type Adherent Slough Adherent Slough Adherent Slough -Structure Exposed N/A -Texture (Flory-wound Skin Appearance) Assessed,Callus Assessed Assessed -Moisture (Flory-wound Skin Appearance) Assessed Assessed, Assessed Maceration -Color (Flory-wound Skin Appearance) Assessed Assessed -Temperature (Flory-wound Skin No Abnormality No Abnormality No Abnormality Appearance) (Pt Warm) (Pt Warm) (Pt Warm) -Tenderness on Palpation (Flory-wound No Yes No Skin Appearance) -Ulcer Cleansing Wound Cleanser Soap and Water Soap and Water -Foul Odor after Cleansing No No No -Anesthetic Used 5% Lidocaine 5% Lidocaine 5% Lidocaine Gel Gel Gel 03/17/25 03/24/25 10:41 10:05 Wound Center Nurse 1 #3 L Lateral Plantar Foot -Combined with other wound No No -Current Size (cm) - Length 1.7 2 -Current Size (cm) - Width 1.8 2 -Current Size (cm) - Depth 0.2 0.3 -Total Square Cm 3.06 4 -Date of Last Picture (Recall this 03/24/25 field) -Photo Taken Yes Yes -Epithelialization Small 1-33% -Tunneling No No -Undermining/Tunneling Yes No -Undermining/Tunneling Starts (O'clock 11 ) -Undermining/Tunneling Ends (O'clock) 1 -Maximum Distance (cm) 0.5 -Undermining/Tunneling Starts #2 (O' 5 clock) -Undermining/Tunneling Ends #2 (O' 6 clock) -Maximum Distance #2 (cm) 0.5 -Circular Undermining No No -Exudate Amt Large Medium -Exudate Type Serosanguineous Serosanguineous -Wound Margin Thickened Distinct, Outline Attached -Granulation Amt Medium (34-66%) Medium (34-66%) -Granulation Quality [place] -Slough/Fibrin Yes Yes -Necrosis Amt Medium (34-66%) Medium (34-66%) -Necrotic Tissue Type Adherent Slough -Structure Exposed N/A N/A -Texture (Flory-wound Skin Appearance) Callus Assessed,Callus -Moisture (Flory-wound Skin Appearance) Assessed Assessed -Color (Flory-wound Skin Appearance) Assessed Assessed -Temperature (Flory-wound Skin No Abnormality No Abnormality Appearance) (Pt Warm) (Pt Warm) -Tenderness on Palpation (Flory-wound No No Skin Appearance) -Ulcer Cleansing Wound Cleanser Wound Cleanser -Foul Odor after Cleansing No No -Anesthetic Used 5% Lidocaine 5% Lidocaine Gel Gel WC - Nurse 2 - General Ulcer CM Notes Start: 02/24/25 09:50 Freq: Status: Active Protocol: Activity Type Activity Date Activity User E-sign Co-sign Detail Recorded Client Recorded Date Recorded By Document 02/24/25 10:28 GM [id number] 02/24/25 10:50 GM Document 03/03/25 11:27 GM [id number] 03/03/25 11:29 GM Edit Result 03/03/25 11:27 GM (1) [id number] 03/03/25 11:40 GM Document 03/10/25 10:15 GM [id number] 03/10/25 10:31 GM Document 03/17/25 11:19 GM [id number] 03/17/25 11:28 GM Document 03/24/25 10:57 GM [id number] 03/24/25 11:07 GM (1) #3 L Lateral Plantar Foot - Post Debridement (cm) - Length => 1.9 - Post Debridement (cm) - Width => 2.2 - Post Debridement (cm) - Depth => 0.2 - Total Square (Post) (cm) => 4.18 - Area of Debridement (cm) - Length => 1.9 - Area of Debridement (cm) - Width => 2.2 - Total Square (Area) (cm) => 4.18 - Tunneling => Yes - Tunneling Position (O'clock) => 6 - Tunneling Distance (cm) => 2.3 - Undermining/Tunneling => Yes - Undermining/Tunneling Starts (O'clock) => 12 - Undermining/Tunneling Ends (O'clock) => 7 - Maximum Distance (cm) => 1.3 - Circular Undermining => Yes 02/24/25 03/03/25 03/10/25 10:28 11:27 10:15 Wound Center Nurse 2 #3 L Lateral Plantar Foot -Time 10: 11:28 10:16 -Correct Patient Yes Yes Yes -Correct Side, Site, Position Yes Yes Yes -Correct Procedure Yes Yes Yes -Procedure Performed Yes Yes Yes -Type of Procedure Debridement Debridement Debridement -Clinical Debridement Subcutaneous Subcutaneous Subcutaneous -Tissue Removed Subcutaneous Subcutaneous Subcutaneous -Post Debridement (cm) - Length 2.3 1.9 1.9 -Post Debridement (cm) - Width 2.0 2.2 1.9 -Post Debridement (cm) - Depth 0.3 0.2 0.3 -Total Square (Post) (cm) 4.60 4.18 3.61 -Area of Debridement (cm) - Length 2.3 1.9 1.9 -Area of Debridement (cm) - Width 2.0 2.2 1.9 -Total Square (Area) (cm) 4.60 4.18 3.61 -Tunneling No Yes Yes -Tunneling Position (O'clock) 6 12 -Tunneling Distance (cm) 2.3 1.2 -Tunneling Position #2 (O'clock) 7 -Tunneling Distance #2 (cm) 2.2 -Undermining/Tunneling Yes Yes No -Undermining/Tunneling Starts (O'clock 12 12 ) -Undermining/Tunneling Ends (O'clock) 12 7 -Maximum Distance (cm) 1.2 1.3 -Circular Undermining No Yes No -Wound/Ulcer Outcome Not Healed Not Healed Not Healed -Ulcer Cleansing Rinsed/ Rinsed/ Irrigated with Irrigated with Saline Saline -Foul Odor after Cleansing No No No -Bioengineered Tissue No No No -Bleeding Controlled with Pressure,Silver Pressure Pressure Nitrate ($) -Treatment Response Procedure Procedure Procedure Tolerated Well Tolerated Well Tolerated Well -Offloading No No No -Debridement - Subq, 1st 20sq cm Yes Yes Yes Pain Scale: 0-10 Numeric Is Patient Pain Free? Yes Yes Yes 03/17/25 03/24/25 11:19 10:57 Wound Center Nurse 2 #3 L Lateral Plantar Foot -Time 11:19 10:57 -Correct Patient Yes Yes -Correct Side, Site, Position Yes Yes -Correct Procedure Yes Yes -Procedure Performed Yes Yes -Type of Procedure Debridement Debridement -Clinical Debridement Subcutaneous Subcutaneous -Tissue Removed Subcutaneous Subcutaneous -Post Debridement (cm) - Length 2.0 2.0 -Post Debridement (cm) - Width 2.0 2.0 -Post Debridement (cm) - Depth 0.4 0.3 -Total Square (Post) (cm) 4.00 4.00 -Area of Debridement (cm) - Length 2.0 2.0 -Area of Debridement (cm) - Width 2.0 2.0 -Total Square (Area) (cm) 4.00 4.00 -Tunneling Yes Yes -Tunneling Position (O'clock) 7 12 -Tunneling Distance (cm) 2.3 1.2 -Tunneling Position #2 (O'clock) 12 6 -Tunneling Distance #2 (cm) 1.2 2.7 -Undermining/Tunneling No Yes -Undermining/Tunneling Starts (O'clock 2 ) -Undermining/Tunneling Ends (O'clock) 5 -Maximum Distance (cm) 0.8 -Circular Undermining No No -Wound/Ulcer Outcome Not Healed Not Healed -Ulcer Cleansing Rinsed/ Rinsed/ Irrigated with Irrigated with Saline Saline -Foul Odor after Cleansing No No -Bioengineered Tissue No No -Bleeding Controlled with Pressure Pressure -Treatment Response Procedure Procedure Tolerated Well Tolerated Well -Offloading No No -Debridement - Subq, 1st 20sq cm Yes Yes Pain Scale: 0-10 Numeric Is Patient Pain Free? Yes Yes WC - Nurse 3 - General Ulcer D/C NN Start: 02/24/25 09:50 Freq: Status: Active Protocol: Activity Type Activity Date Activity User E-sign Co-sign Detail Recorded Client Recorded Date Recorded By Document 02/24/25 11:06 JF [id number] 02/24/25 11:06 JF Document 03/03/25 12:09 DS [id number] 03/03/25 12:23 DS Document 03/10/25 11:25 RB [id number] 03/10/25 11:26 RB Document 03/17/25 11:56 TS [id number] 03/17/25 12:10 TS Document 03/24/25 11:23 TS [id number] 03/24/25 11:31 TS 02/24/25 03/03/25 03/10/25 11:06 12:09 11:25 Wound Care Center Nurse 3 #3 L Lateral Plantar Foot -Ulcer Cleansing Rinsed/ Rinsed/ Irrigated with Irrigated with Saline Saline -Foul Odor after Cleansing No -Primary Dressing Applied Aquacel Extra Aquacel Extra Aquacel Extra -Other Dressing aquacel extra packed into undermining -Primary Dressing Covered/Secured with Dry Gauze & Dry Gauze & Dry Gauze & Roll Gauze, Roll Gauze, Roll Gauze, Secured with Secured with Secured with Tape Tape Tape -Aquacel Extra 1 1 1 -Wound Comment(s) Dr. Plummer in to do silver nitrate dt bleeding Treatment Response Procedure Tolerated Well Pain Scale: 0-10 Numeric Is Patient Pain Free? Yes Yes Yes WC - Visit Discharge Discharge Condition Stable Stable Stable Ambulatory Status Ambulatory Ambulatory Ambulatory Transportation Private Auto Private Auto Private Auto Accompanied by Medication Reconcilliation completed & Yes No provided to patient/care provider Clinical Summary of Care Provided Yes Yes 03/17/25 03/24/25 11:56 11:23 Wound Care Center Nurse 3 #3 L Lateral Plantar Foot -Ulcer Cleansing -Foul Odor after Cleansing -Primary Dressing Applied Aquacel Extra Aquacel Extra -Other Dressing -Primary Dressing Covered/Secured with Dry Gauze & Dry Gauze,Dry Roll Gauze, Gauze & Roll Secured with Gauze,Secured Tape with Tape -Aquacel Extra 1 1 -Wound Comment(s) Treatment Response Pain Scale: 0-10 Numeric Is Patient Pain Free? Yes Yes WC - Visit Discharge Discharge Condition Stable Stable Ambulatory Status Ambulatory Ambulatory Transportation Private Auto Private Auto Accompanied by Medication Reconcilliation completed & No No provided to patient/care provider Clinical Summary of Care Provided Yes Yes Assessment/Plan Assessment/Plan (1) Delayed wound healing: CODE(S): T14.8XXD - Other injury of unspecified body region, subsequent encounter (2) Chronic ulcer of left foot with fat layer exposed: CODE(S): L97.522 - Non-pressure chronic ulcer of other part of left foot with fat layer exposed (3) HTN (hypertension): CODE(S): I10 - Essential (primary) hypertension QUALIFIERS: Hypertension type: primary hypertension Qualified Code(s): I10 - Essential (primary) hypertension (4) Diabetic ulcer of foot associated with diabetes mellitus due to underlying condition, with fat layer exposed: CODE(S): E08.621 - Diabetes mellitus due to underlying condition with foot ulcer; L97.502 - Non-pressure chronic ulcer of other part of unspecified foot with fat layer exposed QUALIFIERS: Diabetic foot ulcer location: midfoot Laterality: left Qualified Code(s): E08.621 - Diabetes mellitus due to underlying condition with foot ulcer; L97.422 - Non-pressure chronic ulcer of left heel and midfoot with fat layer exposed (5) Type 2 diabetes mellitus without complications: CODE(S): E11.9 - Type 2 diabetes mellitus without complications PLAN: Plan Debridement performed today in clinic as annotated above. I suspect noncompliance of offloading to be a major factor in his delayed healing. At home wound-care instructions: Wash ulcer daily with antibacterial soap and water. Will have him use Aquacel Extra to ulcer and cover with gauze and roll gauze to secure daily. Keep dressing clean and dry. Due to the undermining and worsening of his ulcer, it is medically necessary to employ the assistance of a wound vac in healing his ulcer. The goal of therapy would be to increase granulation to cover the tendon and eliminate the undermining of his ulcer. The Snap wound vac would be set to 125 mm Hg and would be changed weekly. This is necessary to salvage his foot from amputation. Discussed possibly using TCC for offloading. We also discussed that there may be a single vessel narrowing that could be preventing healing and talked about possible referral to Vascular surgery to do CTA runoff. He declines at this time. Also discussed surgical procedure proposed by podiatry to shave exostosis of bone that is likely causing ulcer and he declines at this time. Off-loading: The patient was instructed to avoid pressure and friction on the affected areas. Reposition every 2 hours at minimum. Avoid prolonged standing and/or dangling of legs. When seated, feet should be elevated at chest level. Frequent ambulation is encouraged. Diet: Patient encouraged to increase protein intake while taking caution to avoid high carbohydrate and/or sugar intake. Labs/cultures/imaging: Wound culture positive 03/27/23 and is currently on Doxycycline. Wound culture showed Staph and Strep and he was treated with Keflex based on sensitivities and use topical Gentamicin for 3 weeks. Wound culture done 09/18/23 was positive for staph epidermidis. He has been on cephalexin and doxycycline. Wound culture was positive for Enterococcus and Linezolid completed. Wound culture was positive and he will continue Flagyl, Cipro and hold cefdinir and decrease doxycycline to once/day. His put him back on Keflex and doxycycline when his ulcer worsened over . Wound culture on 04/29/24 was positive for Staph epidermidis and he completed Linezolid and is back to taking chronic doxycyline and on Bactrim. Wound culture taken showed Corynebacterium and we discussed starting him on Augmentin but are hesitant to do this because of a PCN allergy that he reports as a child but he does not recall the reaction. Wound culture taken 02/24/25 due to worsening of ulcer and was positive for Staph capitus and he was started on Linezolid. XR of foot was negative. MRI negative for osteomyelitis and arterial testing negative for arterial insufficiency. Repeat XR of foot was negative. XR ordered again to r/o osteomyelitis and was negative 07/2024. Xray of left foot and 5th toe on 02/24/25 were negative for osteomyelitis and may need MRI for further evaluation. Follow-up: Return in 1 week for wound care follow up. Return sooner or report to the emergency room should symptoms worsen, or new symptoms arise. Note: [employer] speech recognition arranging funeral director software was used to create portions of this document. Sound-alike and misspelled words, as well as other arranging funeral director errors may be contained in the documentation.
--- NOTE | 2025-03-27 11:41 | WC ---
PHOTO-LEFT PLANTAR 03/24/25
== END 2025-03-24 23:59 | disposition home or self-care (01) ==
LOC: WC 10:00
PROVIDERS: PCP Family Medicine; Referring Provider Family Medicine; Visit Provider Family Medicine
DX: E11.621 Type 2 diabetes mellitus with foot ulcer (principal); L97.522 Non-pressure chronic ulcer of other part of left foot with fat layer exposed; I10 Essential (primary) hypertension
CPT/HCPCS: 11042; 73630; 73660; 87070; 87075; 87077; 87186; 87205